=== PATIENT | male | born 1960 | race Caucasian/White ===

== ENCOUNTER → 2024-12-02 | Outpatient (CLI) | payer MEDICARE, SELFPAY ==
[2024-12-02 12:23] LABS: Hematocrit 43.3 % (40-54); Hemoglobin 14.4 g/dL (13.0-16.5); Immature Granulocytes Count 0.030 X10^3/uL (0.0-0.0); Mean Corp Hgb Conc 33.3 g/dL (32-36); Mean Corpuscular Volume 88.9 fL (80-94); Mean Platelet Vol. 10.0 fl (6.2-12.0); NRBC Flagged by Analyzer 0 % (0-5); Platelet Count 268 K/mm3 (150-450); RBC Distribution Width CV 15.3 % (11.6-14.6); RBC Distribution Width SD 50.4 fl (35.1-43.9); Red Blood Count 4.87 M/mm3 (4.6-6.2); White Blood Count 8.5 K/mm3 (4.4-11.0)
[2024-12-02 12:57] LABS: AST(SGOT) 20 U/L (<=37); Alanine Aminotransfer ALT/SGPT 21 U/L (<=46); Albumin, Serum 4.1 g/dL (3.4-4.8); Alkaline Phosphatase 61 U/L (40-129); Anion Gap 10 (5-15); BUN 12 mg/dL (4-19); BUN/Creat Ratio 14.1 RATIO (10-20); Calcium,Total 9.9 mg/dL (7.6-11.0); Carbon Dioxide 25.3 mmol/L (21.0-32.0); Chloride 105 mmol/L (98-108); Cholesterol 140 mg/dL (<=200); Globulin 3.2 g/dL (2.2-4.2); Glucose 104 mg/dL (70-99); Low Density Lipoprotein Calc. 71 mg/dL; Potassium 4.8 mmol/L (3.3-5.1); Triglycerides 107 mg/dL; Very Low Density Lipoprotein 21 mg/dL (5-40); Vitamin D,25 Hydroxy 30.5 ng/mL (30-100); cholesterol:hdl ratio screen 2.92
--- OUTSIDE RECORDS SUMMARY | 2024-12-02 18:07 | XMS RPT_ITS | CCD ---
Author Organization [facility] Care Team Providers Care Recruiting Intern Name Role Phone OPAL MEDINA Attending Unavailable ADAM, OPAL M Primary Care Unavailable CURT SOUSA Admitting Unavailable CURT SOUSA Attending Unavailable Curt Sousa Attending Unavailable Curt Sousa Referring Unavailable UNKNOWN, PCP [place] Primary Care Unavailable Curt Sousa Admitting Unavailable Adam, Opal Unavailable Unavailable Shirley Brunson Unavailable Unavailable Adam, Opal M Unavailable Unavailable Unknown, Referring Provider Unavailable Unav ailable Martinez Oh Unavailable Unavailabl e Curt Sousa Unavailable Unavailable Sidor, Monica A Unavailable Unavailable Adam, Opal Unavailable Unavailable Adam, Opal M Unavailable Unavailable Unavailable DR OPAL MEDINA MD Primary Care Physician Snehal vailable Unavailable Unavailable DR OPAL MEDINA MD Primary Care Physician Snehal vailable Geo, Dr. Gricelda Vivar Attending Unav ailable Geo, Dr. Gricelda Vivar Referring Unav ailable Adam, Dr. Opal Yanez Primary Care Unava ilable Adam, Dr. Opal Yanez Attending Unava ilable Leon, Dr. Opal Yanez Primary Care Unava ilable Leon, Dr. Opal Yanez Referring Unava ilable Leon, Dr. Opal Yanez Primary Care Unava ilable Leon, Dr. Opal Yanez Attending Unava ilable Leon, Dr. Opal Yanez Referring Unava ilable Leon, Dr. Opal Yanez Primary Care Unava ilable Leon, Dr. Opal Yanez Attending Unava ilable Adam, Dr. Opal Yanez Referring Unava ilable Leon, Dr. Opal Yanez Attending Unava ilable Adam, Dr. Opal Yanez Referring Unava ilable Adam, Dr. Opal Yanez Primary Care Unava ilable Adam, Dr. Opal Yanez Attending Unava ilable Adam, Dr. Opal Yanez Referring Unava ilable Adam, Dr. Opal Yanez Primary Care Unava ilable Leon, Dr. Opal Yanez Attending Unava ilable Leon, Dr. Opal Yanez Referring Unava ilable Leon, Dr. Opal Yanez Primary Care Unava ilable Guardado, Dr. Gricelda Vivar Attending Unav ailable Leon, Dr. Opal Yanez Primary Care Unava ilable Adam, Dr. Opal Yanez Attending Unava ilable Leon, Dr. Opal Yanez Referring Unava ilable Leon, Dr. Opal Yanez Primary Care Unava ilable Adam, Dr. Opal Yanez Primary Care Unava ilable MD MARTINEZ [place] Attending Unavail able MD MARTINEZ [place] Referring Unavail able Geo, Dr. Gricelda Vivar Referring Unav ailable Sparrow, Anabelle Yuli Smithn Attending Unavailab le Leon, Dr. Opal Yanez Primary Care Unava ilable Adam, Dr. Opal Yanez Primary Care Unava ilable Guardado, Dr. Gricelda Vivar Attending Unav ailable Guardado, Dr. Gricelda Vivar Referring Unav ailable Leon Opal COURTNEY Primary Care Provider ADAM COURTNEY, DR OPAL Wilson Primary Care ELISEO Ramesh DO Attending Unavailable ELISEO BRAXTON DO Admitting Emeka MEDINA MD, DR OPAL Wilson Primary Care Lacy OLIVER MD, DR GRICELDA Piña Attending Unavailab aurelio MEDINA MD, DR OPAL Wilson Primary Care Lacy OLIVER MD, DR GRICELDA Piña Attending Faisalab aurelio MEDINA MD, DR OPAL Wilson Primary Care UnavailELISEO Mejia DO Attending Emeka MEDINA MD, DR OPAL Wilson Primary Care Lacy OLIVER MD, DR GRICELDA Piña Attending Unavailab aurelio MEDINA MD, DR OPAL Wilson Primary Care Unavailgia OLIVER MD, DR GRICELDA Piña Attending Unavailab aurelio AGEEPACKAGING TECHNICIAN, RAINE Wilson Consulting Rafal MEDINA MD, DR OPAL Wilson Primary Care Unavailgia OLIVER MD, DR GRICELDA Piña Admitting Unavailab Simone COURTNEY, DR GRICELDA Piña Referring Unavailab aurelio OLIVER MD, DR GRICELDA Piña Attending Unavailab aurelio VU, BECK L Consulting Katerine MEDINA MD, DR OPAL Wilson Primary Care Unavailgia OLIVER MD, DR GRICELDA Piña Admitting Unavailab Simone COURTNEY, DR GRICELDA Piña Referring Unavailab aurelio OLIVER MD, DR GRICELDA Piña Attending Unavailab aurelio COLEMAN MD, DR SADIA Thomas Attending Unavailable ADAM COURTNEY, DR OPAL Wilson Primary Care Unavailgia MEDINA MD, DR OPAL Wilson Primary Care Unavailgia OLIVER MD, DR GRICELDA Piña Attending Unavailab Agustin COURTNEY, DR OPAL Wilson Primary Care Unavailgia OLIVER MD, DR GRICELDA Piña Attending Unavailab aurelio MEDINA MD, DR OPAL Wilson Primary Care Unavailgia LAU PA-C, RAY W Attending Unavailable ADAM COURTNEY, DR OPAL Wilson Primary Care Unavailgia OLIVER MD, DR GRICELDA Piña Attending Unavailab aurelio MEDINA MD, DR OPAL Wilson Primary Care Unavailgia OLIVER MD, DR GRICELDA Piña Attending Unavailab Opal Turk MD Unavailable ADAM, OPAL M Primary Care Unavailable ADAM, OPAL M Referring Unavailable ADAM, OPAL M Primary Care Unavailable ADAM, OPAL M Primary Care Unavailable ADAM, OPAL M Referring Unavailable ADAM, OPAL M Primary Care Unavailable ADAM, OPAL M Referring Unavailable ADAM, OPAL M Primary Care Unavailable ADAM, OPAL M Primary Care Unavailable ADAM, OPAL M Attending Unavailable ADAM, OPAL M Primary Care Unavailable Mary COURTNEY, Dr. Santiago Attending Provider Pamela Hernandez Attending Unavailable Pamela Hernandez Referring Unavailable Pamela Hernandez Attending Unavailable Medications Current Medications Medication Drug Class(es) Dates Sig (Normalized) Sig (Original) acetaminophen 1000 mg oral tablet (13 sources) Start: 01-16-2023 Tylenol Dose : 1,000 mg = 2 tab(s), Oral, q6h, 0 Refill(s) Start Date: 01/16/23 Status: Ordered Start: 07-11-2022 End: 07-25-2022 acetaminophen (Tylenol) 500 mg tablet 1 tablet (500 mg). 07/11/2022 Active acetaminophen 325 mg / HYDROcodone bitartrate 5 mg oral tablet (1 source) Opioid Agonist Start: 02-25-2023 End: 07-05-2023 take 1 tablet by mouth every six hours HYDROcodone-acetaminophen (Shields) 5-325 mg tablet Take 1 tablet by mouth every 6 hours. 0 02/25/2023 07/05/2023 Discontinued (Med List Cleanup) [id number] 200 actuat albuterol 0.09 mg/actuat metered dose inhaler (20 sources) beta2-Adren ergic Agonist Start: 02-28-2024 take 2 puff(s) by inhalation every four hours for wheezing albuterol 90 mcg/actuation inhaler Indications: Chronic obstructive pulmonary disease, unspecified COPD type (Multi) Inhale 2 puffs every 4 hours if needed for wheezing. 18 g 3 02/28/2024 Active Start: 11-01-2023 take 2 puff(s) by in halation every four hours for wheezing albuterol 90 mcg/actuation inhaler Indications: Chronic obstructive pulmonary disease, unspecified COPD type (Multi) Inhale 2 puffs every 4 hours if needed for wheezing. 18 g 3 11/01/2023 Active Start: 12-24-2022 End: 02-28-2024 take 2 puff(s) by inhalation every four hours for wheezing albuterol 90 mcg/actuation inhaler Indications: Chronic obstructive pulmonary disease, unspecified COPD type (Multi) Inhale 2 puffs every 4 hours if needed for wheezing. 18 g 3 11/01/2023 02/28/2024 Discontinued (Reorder) Start: 05-31-2022 Albuterol Sulf ate 90 mcg/actuation Hfa Aerosol Inhaler Active 1 NMA INHALATION EVERY 6 HOURS as needed for COPD May 31, 2022 1:00am Start: 10-14-2020 End: 12-24-2022 take 2 puff(s) by inhalation every four hours for wheezing albuterol 90 mcg/actuation inhaler Inhale 2 puffs every 4 hours if needed for wheezing. 0 10/14/2020 12/24/2022 Discontinued (Reorder) Start: 10-14-2020 take 2 puff(s) by in halation every four hours as needed Albuterol Sulfate HFA 108 (90 Base) MCG/ACT Inhalation Aerosol Solution INHALE 2 PUFFS EVERY 4 HOURS NEEDED Quantity: 1 Refills: 5 Ordered: 17-Feb-2021 Opal Medina MD Start : 14-Oct-2020 Active Start: 09-12-2017 End: 03-30-2022 take 2 puff(s) by inhalation three times daily as needed Ventolin HFA 108 (90 Base) MCG/ACT Inhalation Aerosol Solution INHALE 2 PUFFS 3 times daily PRN Quantity: 1 Refills: 5 Ordered: 23-May-2020 Opal Medina MD Start : 12-Sep-2017 End : 30-Mar-2022 Complete Start: 09-12-2017 take 2 puff(s) by in halation three times daily as needed Ventolin HFA 108 (90 Base) MCG/ACT Inhalation Aerosol Solution INHALE 2 PUFFS 3 times daily PRN Quantity: 1 Refills: 5 Opal Medina MD Start : 12-Sep-2017 Active 18 GM Inhaler Albuterol (Eqv-ProAir HFA) 90 mcg/inh inhalation aerosol (8 sources) Start: 06-24-2021 take 1 dose by inhalation every four hours as needed for wheezing Albuterol (Eqv-ProAir HFA) 90 mcg/inh inhalation aerosol Dose = 2 puff(s), Inhalation, q4h, PRN Shortness of breath or wheezing, per patient takes daily every 4 to 6 days, 0 Refill(s) Start Date: 06/24/21 Status: Ordered Start: 06-24-2021 take 1 dose by inhal ation every six hours as needed for wheezing Albuterol (Eqv-ProAir HFA) 90 mcg/inh inhalation aerosol Dose = 1 puff(s), Inhalation, q6hr, PRN Shortness of breath or wheezing, per patient takes daily every 4 to 6 days, 0 Refill(s) Start Date: 06/24/21 Status: Ordered apixaban 5 mg oral tablet (19 sources) Factor Xa Inhibitor Start: 11-30-2024 take 1 tablet by mouth twice daily Apixaban 5 mg tablet Active 5 mg PO TWICE A DAY November 30, 2024 12:00am Start: 02-28-2024 take 1 tablet by zoraida th twice daily apixaban (Eliquis) 5 mg tablet Indications: Acute deep vein thrombosis (DVT) of other specified vein of left lower extremity Take 1 tablet (5 mg) by mouth 2 times a day. 180 tablet 3 02/28/2024 Active Start: 11-01-2023 take 1 tablet by zoraida th twice daily apixaban (Eliquis) 5 mg tablet Indications: Acute deep vein thrombosis (DVT) of other specified vein of left lower extremity (Multi) Take 1 tablet (5 mg) by mouth 2 times a day. 180 tablet 3 11/01/2023 Active Start: 11-26-2022 End: 02-28-2024 take 1 tablet by mouth twice daily apixaban (Eliquis) 5 mg tablet Indications: Acute deep vein thrombosis (DVT) of other specified vein of left lower extremity Take 1 tablet (5 mg) by mouth 2 times a day. 180 tablet 3 11/01/2023 02/28/2024 Discontinued (Reorder) Start: 07-31-2022 take 1 tablet by zoraida th in the morning apixaban (Eliquis) 5 mg tablet Indications: Acute deep vein thrombosis (DVT) of other specified vein of left lower extremity (CMS/HCC) Take 1 tablet (5 mg) by mouth in the morning and 1 tablet (5 mg) before bedtime. 60 tablet 5 07/31/2022 Active aspirin 81 mg delayed release oral tablet (20 sources) Platelet Aggregation Inhibitor, Nonsteroidal Anti-inflammatory Drug Start: 07-11-2022 End: 10-30-2022 aspirin 81 mg EC tablet 1 tablet (81 mg). 0 07/11/2022 10/30/2022 Discontinued (Therapy completed) Start: 05-31-2022 End: 07-31-2022 take 1 tablet by mouth once daily Aspirin 325 mg Tablet Active 325 mg PO DAILY May 31, 2022 1:00am SUPPLMENT Start: 06-24-2021 aspirin 325 mg oral delayed release tablet Dose : 325 mg = 1 tab(s), Oral, qDay, # 90 tab(s), 0 Refill(s) Start Date: 06/24/21 Status: Ordered Start: 06-24-2021 aspirin 325 mg oral delayed release tablet Dose : 325 mg = 1 tab(s), Oral, qDay, # 90 tab(s), 0 Refill(s) Start Date: 06/24/21 Status: Ordered Aspirin 325 MG O ral Tablet Quantity: 0 Refills: 0 Ordered: 23-May-2020 DO Active atorvastatin 20 mg oral tablet (10 sources) HMG-CoA Reductase Inhibitor Start: 02-28-2024 take 1 tablet by mouth once daily atorvastatin (Lipitor) 20 mg tablet Indications: Hypercholesterolemia Take 1 tablet (20 mg) by mouth once daily. 90 tablet 3 02/28/2024 Active Start: 11-01-2023 take 1 tablet by zoraida th once daily atorvastatin (Lipitor) 20 mg tablet Indications: Hypercholesterolemia Take 1 tablet (20 mg) by mouth once daily. 30 tablet 11 11/01/2023 Active Start: 07-05-2023 End: 02-28-2024 take 1 tablet by mouth once daily atorvastatin (Lipitor) 20 mg tablet Indications: Hypercholesterolemia Take 1 tablet (20 mg) by mouth once daily. 30 tablet 11 11/01/2023 02/28/2024 Discontinued (Reorder) cephalexin 500 mg oral tablet (16 sources) Cephalosporin Antibacterial Start: 01-26-2023 End: 02-02-2023 cephalexin 500 mg oral tablet Dose : 500 mg = 1 tab(s), Oral, BID, X 7 day(s), # 14 tab(s), 0 Refill(s), 02/02/23 8:04:00 PM EDT, 119 Start Date: 01/26/23 Stop Date: 02/02/23 Status: Ordered Start: 07-14-2021 End: 05-25-2022 take 1 capsule by mouth once daily Cephalexin 500 MG Oral Capsule TAKE 1 CAPSULE EVERY 12 HOURS DAILY. Quantity: 20 Refills: 0 Ordered: 14-Jul-2021 Opal Medina MD Start : 14-Jul-2021 End : 25-May-2022 Complete Start: 06-27-2021 End: 07-07-2021 cephalexin 500 mg oral capsu le Dose : 500 mg = 1 cap(s), Oral, QID, # 40 cap(s), 0 Refill(s), [facility]acy: [id number], 177, cm, 06/24/21 19:36:00 EST, Height, 130, kg, 06/24/21 19:36:00 EST, Dosing Weight Start Date: 06/27/21 Stop Date: 07/07/21 Status: Ordered cholecalciferol 1000 unt extended release oral capsule (20 sources) Vitamin D Start: 05-31-2022 take 1 capsule by mouth once daily Cholecalciferol (Vitamin D3) (Vitamin D3) 100 mcg (4,000 unit) Capsule Active 1000 U PO DAILY May 31, 2022 1:00am SUPPLEMENT Start: 05-17-2017 take [address] [facility] once daily cholecalciferol (Vitamin D-3) 50 mcg (2,000 unit) capsule Take 1 capsule (50 mcg) by mouth once daily. 05/17/2017 Active cyclobenzaprine hydrochloride 5 mg oral tablet (16 sources) Muscle Relaxant Start: 07-05-2023 End: 10-26-2024 cyclobenzaprine (Flexeril) 5 mg tablet Indications: RLS (restless legs syndrome) Take 1 tablet (5 mg) by mouth as needed at bedtime for muscle spasms (for Restless leg). 90 tablet 3 11/01/2023 10/26/2024 Active Start: 06-09-2018 [facility] Cyclobenzaprine HCl - 10 MG Oral Tablet TAKE 1 TABLET AT BEDTIME. Quantity: 90 Refills: 1 Opal Medina MD Start : 09-Jun-2018 Active diphenhydrAMINE hydrochloride 25 mg oral tablet (2 sources) Histamine-1 Receptor Antagonist Start: 01-16-2023 Benadryl 25 mg oral tablet Dose : 25 mg = 1 tab(s), Oral, q6h, PRN Itching, 0 Refill(s) Start Date: 01/16/23 Status: Ordered docusate sodium 50 mg / sennosides, nursing home 8.6 mg oral tablet (2 sources) Start: 01-16-2023 End: 01-21-2023 take 1 tablet by mouth twice daily Senokot S 50 mg-8.6 mg oral tablet Dose = 2 tab(s), Oral, BID, X 5 day(s), # 20 tab(s), 0 Refill(s), [facility]: [facility] #[id number], 172.7, cm, 01/15/23 10:08:00 EDT, Height, kg, 01/15/23 10:08:00 EDT, Dosing Weight Start Date: 01/16/23 Stop Date: 01/21/23 Status: Ordered Start: 07-11-2022 End: 07-14-2022 take 1 tablet by mouth twice daily Senokot S 50 mg-8.6 mg oral tablet Dose = 2 tab(s), Oral, BID, Take until first bowel movement, then as needed, X 3 day(s), # 12 tab(s), 0 Refill(s), [facility]: [facility] #[id number], 172.7, cm, 07/10/22 9:49:00 EST, Height Start Date: 07/11/22 Stop Date: 07/14/22 Status: Ordered doxycycline hyclate 100 mg oral capsule (3 sources) Tetracycline-class Drug Start: 01-16-2023 End: 01-30-2023 doxycycline hyclate 100 mg oral capsule Dose : 100 mg = 1 cap(s), Oral, q12h, X 14 day(s), # 28 cap(s), 0 Refill(s), 01/30/23 8:07:00 AM EDT, [facility]: [facility] #[id number], 172.7, cm, 01/15/23 10:08:00 EDT, Height, 119, kg, 01/15/23 10:08:00 EDT, Dosing Weight Start Date: 01/16/23 Stop Date: 01/30/23 Status: Ordered Start: 07-11-2022 End: 07-25-2022 doxycycline hyclate 100 mg o ral capsule Dose : 100 mg = 1 cap(s), Oral, q12h, X 14 day(s), # 28 cap(s), 0 Refill(s), 07/25/22 6:34:00 EDT, [facility]acy: [facility] #[id number], 172.7, cm, 07/10/22 9:49:00 EST, Height, 126.7 Start Date: 07/11/22 Stop Date: 07/25/22 Status: Ordered famotidine 20 mg oral tablet (4 sources) Histamine-2 Receptor Antagonist Start: 01-16-2023 Pepcid 20 mg oral tablet Dose : 20 mg = 1 tab(s), Oral, qDay, # 30 tab(s), 0 Refill(s), [facility]: [facility] #[id number], 172.7, cm, 01/15/23 10:08:00 EDT, Height, kg, 01/15/23 10:08:00 EDT, Dosing Weight Start Date: 01/16/23 Status: Ordered Start: 07-11-2022 End: 10-30-2022 Pepcid 20 mg tablet 1 tablet (20 mg). 0 07/11/2022 10/30/2022 Discontinued (Therapy completed) glucose 4000 mg chewable tablet (9 sources) End: 02-28-2024 glucose 4 gram chewable tablet Chew if needed for low blood sugar - see comments. 02/28/2024 Discontinued (Other) hydroCHLOROthiazide 50 mg oral tablet (20 sources) Thiazide Diuretic Start: 02-28-2024 take 1 tablet by mouth once daily hydroCHLOROthiazide (HYDRODiuril) 50 mg tablet Indications: Primary hypertension Take 1 tablet (50 mg) by mouth once daily. 90 tablet 3 02/28/2024 Active Start: 11-01-2023 take 1 tablet by zoraida th once daily hydroCHLOROthiazide (HYDRODiuril) 50 mg tablet Indications: Primary hypertension Take 1 tablet (50 mg) by mouth once daily. 90 tablet 3 11/01/2023 Active Start: 11-29-2018 hydroCHLOROthi azide 25 MG Oral Tablet Quantity: 30 Refills: 0 Start : 29-Nov-2018 Active Start: 03-26-2017 End: 02-28-2024 take 1 tablet by mouth once daily Hydrochlorothiazide 50 mg Tablet Active 50 mg PO DAILY May 31, 2022 1:00am BP hydrocortisone 10 mg/ml / neomycin 3.5 mg/ml / polymyxin b [id number] unt/ml otic solution (8 sources) Aminoglycoside Antibacterial, Polymyxin-class Antibacterial, Corticosteroid Start: 07-05-2023 [id number] (Cortisporin) otic solution Indications: Acute swimmer's ear of left side Administer 2 drops into the left ear 4 times a day. 10 mL 07/05/2023 Active meloxicam 7.5 mg oral tablet (5 sources) Nonsteroidal Anti-inflammatory Drug Start: 02-25-2023 End: 07-05-2023 take 1 tablet by mouth once daily meloxicam (Mobic) 7.5 mg tablet Take 1 tablet (7.5 mg) by mouth once daily. 0 02/25/2023 07/05/2023 Discontinued (Med List Cleanup) Start: 04-27-2022 End: 10-30-2022 Mobic 7.5 mg tablet 1 tablet (7.5 mg). 0 07/11/2022 10/30/2022 Discontinued (Therapy completed) Multivit With Min-Folic Acid (Men's Daily Gummies) 200 mcg Tablet,Chewable (1 source) Start: 05-31-2022 take 1 tablet by mouth once daily Multivit With Min-Folic Acid (Men's Daily Gummies) 200 mcg Tablet,Chewable Active 2 {tbl} PO DAILY May 31, 2022 1:00am SUPPLEMENT multivitamin (Daily Multi-Vitamin) tablet (1 source) Start: 03-26-2017 End: 07-31-2022 take 1 tablet by mouth once daily multivitamin (Daily Multi-Vitamin) tablet Take 1 tablet by mouth once daily. 0 03/26/2017 07/31/2022 Discontinued (Duplicate order) multivitamin capsule (11 sources) Start: 07-02-2022 multivitamin c apsule once daily. 07/02/2022 Active Start: 07-02-2022 multivitamin c apsule once daily. 0 07/02/2022 Active Multivitamin preparation (6 sources) Start: 07-02-2022 take 1 tablet by mouth once daily Multivitamin Dose = 1 tab(s), Oral, Daily, 0 Refill(s) Start Date: 07/02/22 Status: Ordered ondansetron 4 mg oral tablet (1 source) Serotonin-3 Receptor Antagonist Start: 01-16-2023 End: 01-23-2023 ondansetron 4 mg oral tablet Dose : 4 mg = 1 tab(s), Oral, q8h, PRN Nausea/Vomiting, # 15 tab(s), 0 Refill(s), 01/23/23 8:08:00 AM EDT, Pharmacy: [email or web address] #[id number], 172.7, cm, 01/15/23 10:08:00 EDT, Height, kg, 01/15/23 10:08:00 EDT, Dosing Weight Start Date: 01/16/23 Stop Date: 01/23/23 Status: Ordered oxyCODONE hydrochloride 5 mg oral tablet (4 sources) Opioid Agonist Start: 01-16-2023 End: 01-23-2023 take 1-2 tablets by mouth every four hours as needed for pain oxyCODONE 5 mg oral tablet ( IMMEDIATE release ) 1-2 tab(s), Oral, q4h, PRN as needed for pain, X 7 day(s), # 60 tab(s), 0 Refill(s), 01/23/23 8:08:00 AM EDT, Pharmacy: [facility] ([facility] #[id number], Knee arthropathy Other acute postprocedural pain, 172.7, cm, 01/15/23 10:08:00 EDT, Height, 119, kg, 01/15/23 10:08:00 EDT, Dosing Weight Start Date: 01/16/23 Stop Date: 01/23/23 Status: Ordered Start: 07-23-2022 End: 10-30-2022 oxyCODONE (Roxicodone) 5 mg immediate release tablet 1 tablet (5 mg). 0 07/23/2022 10/30/2022 Discontinued (Therapy completed) Start: 07-11-2022 End: 07-18-2022 take 1-2 tablets by mouth every four hours as needed for pain oxyCODONE 5 mg oral tablet ( IMMEDIATE release ) See Instructions, PRN as needed for pain, 1-2 tab(s) Oral q4h, # 60 tab(s), 0 Refill(s), 07/18/22 6:35:00 EST, Pharmacy: [facility] ([facility] #[id number], Status post total left knee replacement, 172.7, cm, 07/10/22 9:49:00 EST, Height, 126.7 Start Date: 07/11/22 Stop Date: 07/18/22 Status: Ordered rivaroxaban 20 mg oral tablet (2 sources) Factor Xa Inhibitor Start: 07-26-2022 End: 10-30-2022 take 1 tablet by mouth once daily Xarelto 20 mg tablet Take 1 tablet (20 mg) by mouth once daily. 0 07/26/2022 10/30/2022 Discontinued (Therapy completed) sertraline 100 mg oral tablet (18 sources) Serotonin Reuptake Inhibitor Start: 11-30-2024 take 1 tablet by mouth once daily Sertraline (Zoloft) 100 mg tablet Active 100 mg PO daily November 30, 2024 12:00am Start: 02-28-2024 sertraline (Zo loft) 100 mg tablet Indications: Depression screen Take 1 daily 90 tablet 3 02/28/2024 Active Start: 11-01-2023 sertraline (Zo loft) 100 mg tablet Indications: Depression screen Take 1 daily 90 tablet 3 11/01/2023 Active Start: 11-26-2022 End: 02-28-2024 sertraline (Zoloft) 100 mg t ablet Indications: Depression screen Take 1 daily 90 tablet 3 11/01/2023 02/28/2024 Discontinued (Reorder) Start: 10-30-2022 sertraline (Zo loft) 50 mg tablet Indications: Depression screen Take 1/2 tablet daily for the first week and then increase to 1 full tablet daily 30 tablet 1 10/30/2022 Active sulfamethoxazole 800 mg / trimethoprim 160 mg oral tablet (18 sources) Dihydrofolate Reductase Inhibitor Antibacterial, Sulfonamide Antimicrobial Start: 01-26-2023 End: 02-05-2023 take 1 tablet by mouth twice daily Bactrim DS 800 mg-160 mg oral tablet Dose = 1 tab(s), PO, BID, X 10 day(s), # 20 tab(s), 0 Refill(s), 119 Start Date: 01/26/23 Stop Date: 02/05/23 Status: Ordered Start: 07-14-2021 End: 05-25-2022 take 1 tablet by mouth twice daily Sulfamethoxazole-Trimethoprim 800-160 MG Oral Tablet TAKE 1 TABLET TWICE DAILY UNTIL FINISHED. Quantity: 20 Refills: 0 Ordered: 14-Jul-2021 Opal Medina MD Start : 14-Jul-2021 End : 25-May-2022 Complete Start: 06-27-2021 End: 07-07-2021 take 1 tablet by mouth every twelve hours Bactrim DS 800 mg-160 mg oral tablet Dos e = 1 tab(s), Oral, q12h, X 10 day(s), # 20 tab(s), 0 Refill(s), Pharmacy: [id number], 177, cm, 06/24/21 19:36:00 EST, Height, 130, kg, 06/24/21 19:36:00 EST, Dosing Weight Start Date: 06/27/21 Stop Date: 07/07/21 Status: Ordered Start: 05-08-2019 End: 06-06-2019 take 1 tablet by mouth twice daily Sulfamethoxazole-Trimethoprim 800-160 MG Oral Tablet TAKE 1 TABLET TWICE DAILY. Quantity: 28 Refills: 0 Opal Medina MD Start : 08-May-2019 End : 05-Jun-2019 Active tiZANidine 4 mg oral tablet (1 source) Central alpha-2 Adrenergic Agonist Start: 02-17-2024 take 1 tablet by mouth every eight hours as needed tiZANidine (Zanaflex) 4 mg tablet Take 1 tablet (4 mg) by mouth every 8 hours if needed for muscle spasms. 02/17/2024 Active Vitamin D3 (3 sources) Start: 06-25-2021 Vitamin D3 Dos e : 1,000 unit(s) = 1 tab(s), Oral, Daily, 0 Refill(s) Start Date: 06/25/21 Status: Ordered Vitamin D3 25 mcg (1000 intl units) oral tablet (5 sources) Start: 07-10-2022 Vitamin D3 25 mcg (1000 intl units) oral tablet Dose : 50 mcg = 2 tab(s), Oral, Daily Start Date: 07/10/22 Status: Ordered Completed/Discontinued Medications Medication Drug Class(es) Dates Sig (Normalized) Sig (Original) amoxicillin 500 mg / clavulanate 125 mg oral tablet (2 sources) Penicillin-class Antibacterial Start: 07-17-2021 take 1 tablet by mouth every eight hours Amoxicillin-Pot Clavulanate 500-125 MG Oral Tablet take 1 tablet by mouth every 8 hours for 7 days Quantity: 21 Refills: 0 Ordered: 17-Jul-2021 DO Start : 17-Jul-2021 Active Multi Vitamin Daily Oral Tablet (7 sources) Start: 03-26-2017 take 1 tablet by mouth once daily Multi Vitamin Daily Oral Tablet TAKE 1 TABLET DAILY. Quantity: 30 Refills: 11 Opal Medina MD Start : 26-Mar-2017 Active Multi Vitamin Daily Oral Tablet (19 sources) Start: 03-26-2017 take 1 tablet by mouth once daily Multi Vitamin Daily Oral Tablet TAKE 1 TABLET DAILY. Quantity: 30 Refills: 11 Ordered: 26-Mar-2017 Opal Medina MD Start : 26-Mar-2017 Active Multi Vitamin Daily TABS (1 source) Start: 03-26-2017 Multi Vitamin Daily TABS TAKE 1 TABLET DAILY. Quantity: 30 Refills: 11 Ordered: 26-Mar-2017 Opal Medina MD Start : 26-Mar-2017 Active perflutren lipid microspheres (Definity) injection 10 mL of dilution (2 sources) Start: 08-14-2023 End: 08-14-2023 perflutren lipid microspheres (Definity) injection 10 mL of dilution potassium 99 mg extended release oral tablet (1 source) Start: 05-31-2022 End: 11-30-2024 take 1 tablet by mouth once daily Potassium 99 mg Tablet Discontinued 99 mg PO DAILY May 31, 2022 1:00am November 30, 2024 11:09am SUPPLEMENT predniSONE 10 mg oral tablet (5 sources) Start: 03-30-2022 End: 05-25-2022 take 4 tablets by mouth once daily, then take 3 tablets by mouth once daily, then take 2 tablets by mouth once daily, then take 1 tablet by mouth once daily predniSONE 10 MG Oral Tablet Take 4 pills daily for 3 days, then take 3 pills daily for 3 days, then take 2 pills daily for 3 days then take 1 pill daily for 3 days. Quantity: 30 Refills: 0 Ordered: 30-Mar-2022 Opal Medina MD Start : 30-Mar-2022 End : 25-May-2022 Complete traMADol hydrochloride 50 mg oral tablet (5 sources) Opioid Agonist Start: 12-07-2021 End: 03-30-2022 take 1 tablet by mouth twice daily traMADol HCl - 50 MG Oral Tablet Take 1 tablet twice daily Quantity: 14 Refills: 0 Ordered: 07-Dec-2021 Opal Medina MD Start : 07-Dec-2021 End : 30-Mar-2022 Complete Problems Active Problems Problem Classification Problem Date Documented Da te Episodic/Chronic Administrative/social admission (1 source) First encounter by subject; Translations: [Persons encountering health services in other specified circumstances] 11-30-2024 Episodic Asthma (20 sources) Unspecified asthma, uncomplicated; Translations: [Asthma] Onset: 9 06-29-2022 Chronic Chronic obstructive pulmonary disease and bronchiectasis (20 sources) Chronic obstructive pulmonary disease, unspecified; Translations: [Emphysema, unspecified] Onset: 9 Chronic Coma; stupor; and brain damage (7 sources) Daytime somnolence; Translations: [Excessive daytime sleepiness] Episodic Diseases of white blood cells (4 sources) Leukocytosis; Translations: [Leukocytosis] Chronic Disorders of lipid metabolism (9 sources) Hypercholesterolemia; Translations: [Pure hypercholesterolemia, unspecified] Onset: 4 07-05-2023 Chronic Esophageal disorders (2 sources) Gastroesophageal reflux disease; Translations: [Gastro-esophageal reflux disease without esophagitis] 11-30-2024 Chronic Essential hypertension (20 sources) Essential (primary) hypertension; Translations: [Hypertensive disorder] Onset: 9 Chronic Malaise and fatigue (1 source) Other fatigue; Translations: [OTHER FATIGUE] Onset: 9 Episodic Melanomas of skin (20 sources) Malignant melanoma; Translations: [Melanoma of skin, site unspecified] Onset: 3 06-29-2022 Chronic Comment on above: romoved from right c heek approx 2006; Melanomas of skin (1 source) Personal history of malignant melanoma of skin; Translations: [Personal history of malignant melanoma of skin] Onset: 5 Episodic Mood disorders (14 sources) Moderate major depression, single episode; Translations: [Major depressive disorder, single episode, moderate] Onset: 3 10-30-2022 Chronic Mycoses (7 sources) Tinea pedis; Translations: [Tinea pedis] Episodic Nutritional deficiencies (20 sources) Vitamin D deficiency; Translations: [Unspecified vitamin D deficiency] Onset: 3 06-29-2022 Chronic Osteoarthritis (20 sources) Primary osteoarthritis, right hand; Translations: [Osteoarthritis of joint of bilateral hands] Onset: 2 Resolved: 3 Chronic Other aftercare (1 source) oysterman (current) use of aspirin; Translations: [oysterman (current) use of aspirin] Onset: 9 Episodic Other and unspecified benign neoplasm (1 source) Benign neoplasm of transverse colon; Translations: [Benign neoplasm of transverse colon] Onset: 9 Episodic Other and unspecified benign neoplasm (1 source) Benign neoplasm of sigmoid colon; Translations: [Benign neoplasm of sigmoid colon] Onset: 9 Episodic Other and unspecified benign neoplasm (1 source) Polyp of colon; Translations: [Polyp of colon] Onset: 9 Episodic Other and unspecified benign neoplasm (1 source) Personal history of colonic polyps; Translations: [Personal history of colonic polyps] Onset: 9 Episodic Other circulatory disease (1 source) History of cerebrovascular disease; Translations: [Personal history of other diseases of the circulatory system] Onset: 2 Episodic Other connective tissue disease (1 source) Artificial knee joint present; Translations: [Presence of left artificial knee joint] Onset: 3 Chronic Other ear and sense organ disorders (1 source) Acute otitis externa; Translations: [Swimmer's ear, left ear] 07-05-2023 Episodic Other gastrointestinal disorders (1 source) Other fecal abnormalities; Translations: [Other fecal abnormalities] Onset: 9 Episodic Other gastrointestinal disorders (7 sources) Scrotal mass; Translations: [Scrotal mass] Episodic Other hereditary and degenerative nervous system conditions (3 sources) Restless legs; Translations: [Restless legs syndrome] 07-05-2023 Chronic Other hereditary and degenerative nervous system conditions (2 sources) Restless legs syndrome; Translations: [Restless legs syndrome] Onset: 4 Chronic Other lower respiratory disease (1 source) Snoring; Translations: [SNORING] Onset: 9 Episodic Other nervous system disorders (1 source) Postoperative pain ; Translations: [Other acute postprocedural pain] Onset: 3 Episodic Other non-epithelial cancer of skin (20 sources) Malignant neoplasm of skin of face; Translations: [Unspecified malignant neoplasm of skin of unspecified part of face] Onset: 3 09-09-2017 Episodic Other nutritional; endocrine; and metabolic disorders (1 source) Body mass index (BMI) 40.0-44.9, adult; Translations: [BODY MASS INDEX (BMI) 40.0-44.9, ADULT] Onset: 9 Chronic Other nutritional; endocrine; and metabolic disorders (20 sources) Obesity; Translations: [Obesity, unspecified] Onset: 2 Chronic Other nutritional; endocrine; and metabolic disorders (20 sources) Body mass index 40+ - severely obese; Translations: [Body Mass Index 45.0-49.9, adult] Chronic Other screening for suspected conditions (not mental disorders or infectious disease) (20 sources) Stool DNA-based colorectal cancer screening positive; Translations: [Abnormal feces] Onset: 5 Resolved: 1 Episodic Peripheral and visceral atherosclerosis (1 source) Chronic total occlusion of artery of the extremities; Translations: [Chronic total occlusion of artery of the extremities] Onset: 5 Chronic Phlebitis; thrombophlebitis and thromboembolism (20 sources) Acute deep venous thrombosis of left femoral vein; Translations: [Acute embolism and thrombosis of left femoral vein] Onset: 3 10-30-2022 Episodic Residual codes; unclassified (3 sources) Obstructive sleep apnea (adult) (pediatric); Translations: [OBSTRUCTIVE SLEEP APNEA (ADULT) (PEDIATRIC)] Onset: 9 Chronic Residual codes; unclassified (20 sources) Obstructive sleep apnea syndrome; Translations: [Obstructive sleep apnea (adult)(pediatric)] Onset: 2 Chronic Residual codes; unclassified (20 sources) Needs influenza immunization; Translations: [Need for prophylactic vaccination and inoculation against influenza] Onset: 3 Resolved: 4 03-01-2023 Episodic Residual codes; unclassified (2 sources) Tobacco user; Translations: [Tobacco use] Onset: 2 Episodic Residual codes; unclassified (1 source) Hypersomnia, unspecified; Translations: [HYPERSOMNIA, UNSPECIFIED] Onset: 9 Rheumatoid arthritis and related disease (2 sources) Rheumatoid arthritis; Translations: [Rheumatoid arthritis, unspecified] 11-30-2024 Chronic Spondylosis; intervertebral disc disorders; other back problems (1 source) Spondylosis without myelopathy or radiculopathy, lumbar region; Translations: [Spondylosis w/o myelopathy or radiculopathy, lumbar region] Onset: 2 Chronic Spondylosis; intervertebral disc disorders; other back problems (20 sources) Chronic low back pain; Translations: [Lumbago] Onset: 2 Resolved: 1 Episodic Substance-related disorders (20 sources) Nicotine dependence, unspecified, uncomplicated; Translations: [Nicotine dependence] Onset: 9 06-29-2022 Chronic Syncope (17 sources) Vasovagal syncope; Translations: [Syncope and collapse] Onset: 4 07-31-2023 Episodic Unclassified (2 sources) G47.33 RALPH Onset: 9 Unclassified (2 sources) Low back pain, unspecified; Translations: [Low back pain, unspecified] Onset: 2 Past or Other Problems Problem Classification Problem Date Documented Da te Episodic/Chronic Genitourinary symptoms and ill-defined conditions (20 sources) Microscopic hematuria; Translations: [Asymptomatic microscopic hematuria] Resolved: 05-23-2020 Episodic Immunizations and screening for infectious disease (2 sources) Encounter for immunization; Translations: [Encounter for immunization] Onset: 02-28-2024 Episodic Inflammatory conditions of male genital organs (20 sources) Abscess of testis; Translations: [Orchitis, epididymitis, and epididymo-orchitis, with abscess] Onset: 06-29-2022 Resolved: 07-31-2022 07-31-2022 Episodic Mood disorders (8 sources) Mood disorders Onset: 03-01-2023 03-01-2023 Other and unspecified benign neoplasm (20 sources) History of polyp of colon; Translations: [Personal history of colonic polyps] Onset: 06-29-2022 06-29-2022 Episodic Other connective tissue disease (2 sources) Pain in left lower leg; Translations: [Pain in left lower leg] Onset: 07-23-2022 Episodic Other hematologic conditions (20 sources) H/O: blood disorder; Translations: [Personal history of diseases of blood and blood-forming organs] Resolved: 05-23-2020 Episodic Other infections; including parasitic (20 sources) H/O: skin disorder; Translations: [Personal history of other infectious and parasitic diseases] Resolved: 05-23-2020 Episodic Other male genital disorders (20 sources) H/O: Disorder; Translations: [Personal history of other specified diseases] Resolved: 05-23-2020 Episodic Other non-traumatic joint disorders (20 sources) Pain in left knee; Translations: [Acute pain of left knee] Resolved: 05-23-2020 Episodic Other nutritional; endocrine; and metabolic disorders (20 sources) H/O: obesity; Translations: [Personal history of other endocrine, metabolic, and immunity disorders] Resolved: 05-23-2020 Episodic Other screening for suspected conditions (not mental disorders or infectious disease) (2 sources) Elevated C-reactive protein; Translations: [CRP elevated] Residual codes; unclassified (20 sources) Daytime somnolence; Translations: [Hypersomnia, unspecified] Onset: 06-29-2022 Resolved: 07-31-2022 07-31-2022 Chronic Residual codes; unclassified (20 sources) Dependent edema; Translations: [Edema] Resolved: 05-23-2020 Episodic Screening and history of mental health and substance abuse codes (6 sources) Patient encounter status; Translations: [Encounter for screening for depression] Onset: 02-28-2024 10-30-2022 Episodic Skin and subcutaneous tissue infections (20 sources) Cellulitis of lower limb; Translations: [Cellulitis of left lower limb] Onset: 06-24-2021 Resolved: 07-31-2022 Episodic Unclassified (1 source) Low back pain, unspecified; Translations: [Low back pain, unspecified] Onset: 03-30-2022 Unclassified (11 sources) Onset: 07-31-2022 Resolved: 10-30-2022 10-30-2022 NEGATED: Highlighted row has not occurred!Residual codes; unclassified (20 sources) Disease Episodic Results Test Name Value Interpretation Reference Range Facility Internal Medicine Office Vis nohemy 11-26-2024 Internal Medicine Office Visit [facility] [address] [place] [address] OFFICE VISIT Date of Service: 11/30/24 MR#: [id number] Acct: [id number] Name: ILDEFONSO ROCHA Rep #: [id number] : 1960 Provider: Dr. Pamela ruffin MD Age/Sex: 64/M Location[place] [facility] Status: Signed Intake Vital Signs 11/30/24 12:48 Weight: 290 lb BP 142/98 H Blood Pressure Location Lt brachial Position Sitting Respiration 18 Pulse 92 Pulse Source Monitor Temp 97.9 F Temp Source Temporal Pulse Oximetry (%) 96 Oxygen Delivery Method room air Intake Visit Reasons: EST NEW PT - [facility] SENT Chief Complaint: EST NEW PT-[facility] SENT Is patient in pain?: Yes (back pain 4) Allergies No Known Allergies Allergy (Verified 11/30/24 11:09) Medications ???Medication ???Instructions ???Recorded ???Confirmed ???Type albuterol sulfate 90 mcg/actuation 1 puff inhalation Q6H PRN COPD 0 05/31/22 11/30/24 History aerosol inhaler aspirin 325 mg tablet 325 mg PO DAILY SUPPLMENT 05/31/22 11/30/24 History cholecalciferol (vitamin D3) 100 1,000 unit PO DAILY SUPPLEMENT 11/30/24 History mcg (4,000 unit) capsule hydrochlorothiazide 50 mg tablet 50 mg PO DAILY BP 05/31/22 5 History multivitamin with minerals-folic 2 tab PO DAILY SUPPLEMENT 05/31/22 11/30/24 History acid 200 mcg chewable tablet (Men's Daily Gummies) apixaban 5 mg tablet 5 mg PO BID 11/30/24 11/30/24 Hist ory cyclobenzaprine 5 mg tablet 5 mg PO TID PRN muscle spasm #30 0 11/30/24 11/30/24 Rx tabs duloxetine 30 mg capsule,delayed 30 mg PO QDAY #30 caps 11/30/24 Rx release (Cymbalta) sertraline 100 mg tablet (Zoloft) 100 mg PO QDAY 11/30/24 11/30/24 History Have you fallen in the past year?: Yes (x2) PFSH Medical History (Updated 11/30/24 @ 11:[address] Pamela Hernandez MD) Hearing problem DVT (deep venous thrombosis) Wears dentures Wears glasses Cancer History of steroid therapy Arthritis High cholesterol Easy bruising Restless legs Back pain Smoker Sleep apnea Shortness of breath on exertion COPD (chronic obstructive pulmonary disease) Leg cramps History of pain when walking History of edema Hypertension Surgical History History of bilateral knee replacement Hx of colonoscopy Hx of hernia repair Family History Mother Lung cancer Depression Asthma Anxiety Arthritis Hypertension Hyperlipidemia Social History (Updated 11/30/24 @ 11:[address] 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 1. Little interest or pleasure in doing things: not at all 2. Feeling down, depressed, or hopeless: several days 3. Trouble falling or staying asleep, or sleeping too much: more than half the days 4. Feeling tired or having little energy: more than half the days 5. Poor appetite or overeating: more than half the days 6. Feeling bad about yourself - or that you are a failure or have let yourself and your family down: more than half the days 7. Trouble concentrating on things, such as reading the newspaper or watching television: not at all 8. Moving or speaking so slowly that other people could have noticed? - Or the opposite - being so fidgety or restless that you have been moving around a lot more than usual: nearly every day 9. Thoughts that you would be better off or of hurting yourself in some way: not at all Total score: 12 If you checked off any problems, how difficult have these problems made it for you to do your work, take care of things at home, or get along with other people?: not difficult at all Source: Developed by Drs. Eric Aguayo, Britta Bingham, Art Watson and colleagues, with an educational gerber from [employer]. VIRAL-7 BMS VIRAL-7 Feeling nervous, anxious, or on edge: 2 = More than half the days Not being able to stop or control worryin = Nearly every day Worrying too much about different things: 2 = More than half the days Trouble relaxin = Not at all Being so restless that it is hard to sit still: 2 = More than half the days Becoming easily annoyed or irritable: 3 = Nearly every day Feeling afraid as if something awful might happ (more content not included)... Normal [facility] Hepatic function 2000 panelo n 10-29-2023 Albumin BCP dye [Mass/Vol] 4.4 g/dL Normal 3.4-5.0 [facility] Comment on above: Performed By: #### T HYDS #### CE Ascencio ([id number]) [facility] ([facility]) [address] [place] [address] ALP [Catalytic activity/Vol] 59 U/L Normal 33-136 [facility] Comment on above: Performed By: #### T HYDS #### CE Ascencio ([id number]) [facility] ([facility]) [address] [place] [address] ALT With P-5'-P [Catalytic activity/Vol] 21 U/L Normal 10-52 [facility] Comment on above: Result Comment: Perla ents treated with Sulfasalazine may generate falsely decreased results for ALT. Performed By: #### T HYDS #### CE Ascencio ([id number]) [facility] ([facility]) [address] [place] [address] AST With P-5'-P [Catalytic activity/Vol] 15 U/L Normal 9-39 [facility] Comment on above: Performed By: #### T HYDS #### CE Ascencio ([id number]) [facility] ([facility]) [address] [place] [address] Bilirubin [Mass/Vol] 0.5 mg/dL Normal 0.0-1.2 [facility] Comment on above: Performed By: #### T HYDS #### CE Ascencio ([id number]) [facility] ([facility]) [address] [place] [address] Bilirubin.direct [Mass/Vol] 0.1 mg/dL Normal 0.0-0.3 [facility] Comment on above: Performed By: #### T HYDS #### CE Ascencio ([id number]) [facility] ([facility]) [address] [place] [address] Protein [Mass/Vol] 7.3 g/dL Normal 6.4-8.2 [facility] Comment on above: Performed By: #### T HYDS #### CE Ascencio ([id number]) [facility] ([facility]) [address] [place] [address] Lipid 1996 panelon 4 Cholesterol [Mass/Vol] 157 mg/dL Normal 0-199 [facility] Comment on above: Result Comment: Age Desirable Borderline High High 0-19 Y 0 - 169 170 - 199 >/= 200 20-24 Y 0 - 189 190 - 224 >/= 225 >24 Y 0 - 199 200 - 239 >/= 240 All ranges are based on fasting samples. Specific therapeutic targets will vary based on patient-specific cardiac risk. Pediatric guidelines reference:Pediatrics 2011, 128(S5).Adult guidelines reference: NCEP ATPIII Guidelines,JOSEF 2001, 258:2486-97 Venipuncture immediately after or during the administration of Metamizole may lead to falsely low results. Testing should be performed immediately prior to Metamizole dosing. Performed By: #### T HYDS #### CE Ascencio ([id number]) [facility] ([facility]) [id number] [place] [address] Cholesterol in HDL [Mass/Vol] 46.7 mg/dL Normal [facility] Comment on above: Result Comment: Age Very Low Low Normal High 0-19 Y < 35 < 40 40-45 ---- 20-24 Y ---- < 40 >45 ---- >24 Y ---- < 40 40-60 >60 Performed By: #### T HYDS #### CE Ascencio ([id number]) [facility] ([facility]) [address] [place] [address] Cholesterol in LDL [Mass/Vol] 84 mg/dL Normal <=99 [facility] Comment on above: Result Comment: Near Borderline AGE Desirable Optimal High High Very High 0-19 Y 0 - 109 --- 110-129 >/= 130 ---- 20-24 Y 0 - 119 --- 120-159 >/= 160 ---- >24 Y 0 - 99 100-129 130-159 160-189 >/=190 Performed By: #### T HYDS #### CE Ascencio ([id number]) [facility] ([facility]) [address] [place] [address] Cholesterol in VLDL [Mass/Vol] 26 mg/dL Normal 0-40 [facility] Comment on above: Performed By: #### T HYDS #### CE Ascencio ([id number]) [facility] ([facility]) [id number] [place] [address] CHOLESTEROL/HDL RATIO 3.4 Normal [facility] Comment on above: Result Comment: Ref Values Desirable < 3.4 High Risk > 5.0 Performed By: #### T HYDS #### CE Ascencio ([id number]) [facility] ([facility]) [address] [place] [address] NON HDL CHOLESTEROL 110 mg/dL Normal 0-149 [facility] Comment on above: Result Comment: Age Desirable Borderline High High Very High 0-19 Y 0 - 119 120 - 144 >/= 145 >/= 160 20-24 Y 0 - 149 150 - 189 >/= 190 ---- >24 Y 30 mg/dL above LDL Cholesterol goal Performed By: #### T HYDS #### CE Ascencio ([id number]) [facility] ([facility]) [address] [place] [address] Triglyceride [Mass/Vol] 130 mg/dL Normal 0-149 [facility] Comment on above: Result Comment: Age Desirable Borderline High High Very High 0 D-90 D 19 - 174 ---- ---- ---- 91 D- 9 Y 0 - 74 75 - 99 >/= 100 ---- 10-19 Y 0 - 89 90 - 129 >/= 130 ---- 20-24 Y 0 - 114 115 - 149 >/= 150 ---- >24 Y 0 - 149 150 - 199 200- 499 >/= 500 Venipuncture immediately after or during the administration of Metamizole may lead to falsely low results. Testing should be performed immediately prior to Metamizole dosing. Performed By: #### T CIRA #### CE Ascencio ([id number]) [facility] ([facility]) [address] [place] [address] [place].doppler Carotid arteries - bilateralon 09-23-2023 [facility] [address], [address], [place], [place] [address] and Vascular Lab Report [facility] US CAROTID ARTERY DUPLEX BILATERAL Patient Name: ILDEFONSO ROCHA Reading Physician: [id number] Warren Caldwell MD Study Date: 09/23/2023 Ordering Physician: [id number] OPAL MEDINA MRN/PID: [id number] Technologist: Alessia Hart T Technologist 2: Date of /Age: 11 1960 / 63 years Gender: M Admission Status: Outpatient Location Performed: [facility] Diagnosis/ICD: Syncope and collapse-R55 Indication: Syncope CPT Codes: 61595 Cerebrovascular Carotid Duplex scan complete CONCLUSIONS: Right Carotid: Findings are consistent with less than 50% stenosis of the right proximal internal carotid artery. Right external carotid artery appears patent with no evidence of stenosis. The right vertebral artery is patent with antegrade flow. No evidence of hemodynamically significant stenosis in the right subclavian artery. Left Carotid: Findings are consistent with less than 50% stenosis of the left proximal internal carotid artery. Left external carotid artery appears patent with no evidence of stenosis. The left vertebral artery is patent with antegrade flow. No evidence of hemodynamically significant stenosis in the left subclavian artery. Imaging & Doppler Findings: Right Plaque Morph: The right carotid bulb demonstrates heterogenous plaque. Left Plaque Morph: The left carotid bulb demonstrates heterogenous plaque. Right Left PSV EDV PSV EDV 114 cm/s CCA P 115 cm/s 62 cm/s CCA D 66 cm/s 98 cm/s 37 cm/s ICA P 59 cm/s 18 cm/s 66 cm/s 20 cm/s ICA M 50 cm/s 18 cm/s 78 cm/s 30 cm/s ICA D 62 cm/s 25 cm/s 82 cm/s ECA 62 cm/s 24 cm/s 7 cm/s Vertebral 38 cm/s 12 cm/s 136 cm/s Subclavian 101 cm/s Right Left ICA/CCA Ratio 1.6 0.9 [id number] Warren Caldwell MD Final MAUROO Warren Caldwell MD - 09/23/2023 [facility] [address], [address], [place], [place] [address] and Vascular Lab Report [facility] US CAROTID ARTERY DUPLEX BILATERAL Patient Name: ILDEFONSO ROCHA Reading Physician: [id number] Caldwell MD Study Date: 09/23/2023 Ordering Physician: [id number] OPAL MEDINA MRN/PID: [id number] Technologist: Alessia Hart T Technologist 2: Date of /Age: 11 1960 / 63 years Gender: M Admission Status: Outpatient Location Performed: [facility] Diagnosis/ICD: Syncope and collapse-R55 Indication: Syncope CPT Codes: 39344 Cerebrovascular Carotid Duplex scan complete CONCLUSIONS: Right Carotid: Findings are consistent with less than 50% stenosis of the right proximal internal carotid artery. Right external carotid artery appears patent with no evidence of stenosis. The right vertebral artery is patent with antegrade flow. No evidence of hemodynamically significant stenosis in the right subclavian artery. Left Carotid: Findings are consistent with less than 50% stenosis of the left proximal internal carotid artery. Left external carotid artery appears patent with no evidence of stenosis. The left vertebral artery is patent with antegrade flow. No evidence of hemodynamically significant stenosis in the left subclavian artery. Imaging & Doppler Findings: Right Plaque Morph: The right carotid bulb demonstrates heterogenous plaque. Left Plaque Morph: The left carotid bulb demonstrates heterogenous plaque. Right Left PSV EDV PSV EDV 114 cm/s CCA P 115 cm/s 62 cm/s CCA D 66 cm/s 98 cm/s 37 cm/s ICA P 59 cm/s 18 cm/s 66 cm/s 20 cm/s ICA M 50 cm/s 18 cm/s 78 cm/s 30 cm/s ICA D 62 cm/s 25 cm/s 82 cm/s ECA 62 cm/s 24 cm/s 7 cm/s Vertebral 38 cm/s 12 cm/s 136 cm/s Subclavian 101 cm/s Right Left ICA/CCA Ratio 1.6 0.9 [id number] Warren Caldwell MD Final [facility] Work Phone: Radiology Study observation (narrative) [facility] Work Phone: US.doppler Carotid arteries - bilateralOrdered By: Warren Caldwell on 09-23-2023 [facility] Work Phone: VASC US CAROTID ARTERY DUPLE X BILATERALon 09-23-2023 VAS US CAROTID ARTERY DUPLEX BILATERAL [address], [facility] [address] [address] and Vascular Lab Report VAS US CAROTID ARTERY DUPLEX BILATERAL Patient Name: ILDEFONSO ROCHA Reading Physician: [id number] Warren Caldwell MD Study Date: 09/23/2023 Ordering Physician: [id number] OPAL MEDINA MRN/PID: [id number] Technologist: Alessia Hart T Technologist 2: Date of /Age: 11 1960 / 63 years Gender: M Admission Status: Outpatient Location Performed: [facility] Diagnosis/ICD: Syncope and collapse-R55 Indication: Syncope CPT Codes: 97101 Cerebrovascular Carotid Duplex scan complete CONCLUSIONS: Right Carotid: Findings are consistent with less than 50% stenosis of the right proximal internal carotid artery. Right external carotid artery appears patent with no evidence of stenosis. The right vertebral artery is patent with antegrade flow. No evidence of hemodynamically significant stenosis in the right subclavian artery. Left Carotid: Findings are consistent with less than 50% stenosis of the left proximal internal carotid artery. Left external carotid artery appears patent with no evidence of stenosis. The left vertebral artery is patent with antegrade flow. No evidence of hemodynamically significant stenosis in the left subclavian artery. Imaging & Doppler Findings: Right Plaque Morph: The right carotid bulb demonstrates heterogenous plaque. Left Plaque Morph: The left carotid bulb demonstrates heterogenous plaque. Right Left PSV EDV PSV EDV 114 cm/s CCA P 115 cm/s 62 cm/s CCA D 66 cm/s 98 cm/s 37 cm/s ICA P 59 cm/s 18 cm/s 66 cm/s 20 cm/s ICA M 50 cm/s 18 cm/s 78 cm/s 30 cm/s ICA D 62 cm/s 25 cm/s 82 cm/s ECA 62 cm/s 24 cm/s 7 cm/s Vertebral 38 cm/s 12 cm/s 136 cm/s Subclavian 101 cm/s Right Left ICA/CCA Ratio 1.6 0.9 [id number] Warren Caldwell MD Final [facility] CT HEAD WO IV CONTRASTon CT HEAD WO IV CONTRAST Interpreted By: Anneliese Mckeon, STUDY: CT HEAD WO IV CONTRAST; 09/04/2023 11:15 am INDICATION: Signs/Symptoms:headache and sycope. COMPARISON: None. ACCESSION NUMBER(S): [id number] ORDERING CLINICIAN: OPAL MEDINA TECHNIQUE: Noncontrast axial CT scan of head was performed. Angled reformats in brain and bone windows were generated. The images were reviewed in bone, brain, blood and soft tissue windows. Coronal and sagittal reformats are provided for review. FINDINGS: Examination is mildly degraded by patient motion. CSF Spaces: There is prominence of ventricles and sulci compatible with diffuse parenchymal volume loss. The degree of ventriculomegaly is disproportionate with size of the sulci. There is also crowding of sulci at the vertex and widening of the sylvian fissures. There is no extraaxial fluid collection. Parenchyma: There are nonspecific areas of diminished attenuation in the subcortical and periventricular white matter. The posterior fossa is degraded by beam hardening artifact. Otherwise, the minaya-white differentiation is intact. There is no mass effect or midline shift. There is no intracranial hemorrhage. Calvarium: The calvarium is unremarkable. Paranasal sinuses and mastoids: There is opacification of scattered mastoid air cells. The paranasal sinuses are clear. There is nonspecific fullness of the nasopharyngeal soft tissues. IMPRESSION: 1. Nonspecific white matter changes most likely represent small-vessel ischemic disease in a patient of this age. 2. Diffuse parenchymal volume loss. Disproportionate ventriculomegaly with crowding of sulci at the vertex and widening of the sylvian fissures could reflect normal pressure hydrocephalus in the appropriate clinical setting. 3. Nonspecific fullness of the nasopharyngeal soft tissues for which correlation with direct visualization is recommended. MACRO: None Signed by: Anneliese Garza 09/04/2023 11:25 AM Dictation workstation: [id number] [facility] CT Head WO contraston 2023 1. Nonspecific white matter changes most likely represent small-vessel ischemic disease in a patient of this age. 2. Diffuse parenchymal volume loss. Disproportionate ventriculomegaly with crowding of sulci at the vertex and widening of the sylvian fissures could reflect normal pressure hydrocephalus in the appropriate clinical setting. 3. Nonspecific fullness of the nasopharyngeal soft tissues for which correlation with direct visualization is recommended. MACRO: None Signed by: Anneliese Garza 09/04/2023 11:25 AM Dictation workstation: [id number] MMODAL Interpreted By: Anneliese Barrera, STUDY: CT HEAD WO IV CONTRAST; 09/04/2023 11:15 am INDICATION: Signs/Symptoms:headache and sycope. COMPARISON: None. ACCESSION NUMBER(S): [id number] ORDERING CLINICIAN: OPAL MEDINA TECHNIQUE: Noncontrast axial CT scan of head was performed. Angled reformats in brain and bone windows were generated. The images were reviewed in bone, brain, blood and soft tissue windows. Coronal and sagittal reformats are provided for review. FINDINGS: Examination is mildly degraded by patient motion. CSF Spaces: There is prominence of ventricles and sulci compatible with diffuse parenchymal volume loss. The degree of ventriculomegaly is disproportionate with size of the sulci. There is also crowding of sulci at the vertex and widening of the sylvian fissures. There is no extraaxial fluid collection. Parenchyma: There are nonspecific areas of diminished attenuation in the subcortical and periventricular white matter. The posterior fossa is degraded by beam hardening artifact. Otherwise, the minaya-white differentiation is intact. There is no mass effect or midline shift. There is no intracranial hemorrhage. Calvarium: The calvarium is unremarkable. Paranasal sinuses and mastoids: There is opacification of scattered mastoid air cells. The paranasal sinuses are clear. There is nonspecific fullness of the nasopharyngeal soft tissues. [facility] MMODAL Anneliese Garza, DO - 09/04/2023 Interpreted By: Anneliese Garza, STUDY: CT HEAD WO IV CONTRAST; 09/04/2023 11:15 am INDICATION: Signs/Symptoms:headache and sycope. COMPARISON: None. ACCESSION NUMBER(S): [id number] ORDERING CLINICIAN: OPAL MEDINA TECHNIQUE: Noncontrast axial CT scan of head was performed. Angled reformats in brain and bone windows were generated. The images were reviewed in bone, brain, blood and soft tissue windows. Coronal and sagittal reformats are provided for review. FINDINGS: Examination is mildly degraded by patient motion. CSF Spaces: There is prominence of ventricles and sulci compatible with diffuse parenchymal volume loss. The degree of ventriculomegaly is disproportionate with size of the sulci. There is also crowding of sulci at the vertex and widening of the sylvian fissures. There is no extraaxial fluid collection. Parenchyma: There are nonspecific areas of diminished attenuation in the subcortical and periventricular white matter. The posterior fossa is degraded by beam hardening artifact. Otherwise, the minaya-white differentiation is intact. There is no mass effect or midline shift. There is no intracranial hemorrhage. Calvarium: The calvarium is unremarkable. Paranasal sinuses and mastoids: There is opacification of scattered mastoid air cells. The paranasal sinuses are clear. There is nonspecific fullness of the nasopharyngeal soft tissues. IMPRESSION: 1. Nonspecific white matter changes most likely represent small-vessel ischemic disease in a patient of this age. 2. Diffuse parenchymal volume loss. Disproportionate ventriculomegaly with crowding of sulci at the vertex and widening of the sylvian fissures could reflect normal pressure hydrocephalus in the appropriate clinical setting. 3. Nonspecific fullness of the nasopharyngeal soft tissues for which correlation with direct visualization is recommended. MACRO: None Signed by: Anneliese Garza 09/04/2023 11:25 AM Dictation workstation: [id number] [facility] Work Phone: Radiology Study observation (narrative) [facility] Work Phone: CT Head WO contrastOrdered B y: Anneliese Garza on 09-04-2023 [facility] Work Phone: Comprehensive metabolic 2000 panelon 08-26-2023 Albumin BCP dye [Mass/Vol] 4.4 g/dL Normal 3.4-5.0 [facility] Comment on above: Performed By: #### 2 4323-8 #### CE Ascencio ([id number]) [facility] ([facility]) [id number] [place] [address] 22301 ALP [Catalytic activity/Vol] 66 U/L Normal 33-136 [facility] Comment on above: Performed By: #### 2 4323-8 #### CE Ascencio (49813) [facility] ([facility]) [id number] [place] [address] 15002 ALT With P-5'-P [Catalytic activity/Vol] 20 U/L Normal 10-52 [facility] Comment on above: Result Comment: Perla ents treated with Sulfasalazine may generate falsely decreased results for ALT. Performed By: #### 2 4323-8 #### CE Ascencio (50082) [facility] ([facility]) [id number] [place] [address] 54029 Anion gap [Moles/Vol] 11 mmol/L Normal 10-20 [facility] Comment on above: Performed By: #### 2 4323-8 #### CE CAMPBELL L (37535) [facility] ([facility]) [address] [place] [address] AST With P-5'-P [Catalytic activity/Vol] 14 U/L Normal 9-39 [facility] Comment on above: Performed By: #### 2 4323-8 #### CE CAMPBELL L (26410) [facility] ([facility]) [id number] [place] [address] 86616 Bilirubin [Mass/Vol] 0.4 mg/dL Normal 0.0-1.2 [facility] Comment on above: Performed By: #### 2 4323-8 #### CE CAMPBELL L (98451) [facility] ([facility]) [id number] [place] [address] 34923 Calcium [Mass/Vol] 9.7 mg/dL Normal 8.6-10.6 [facility] Comment on above: Performed By: #### 2 4323-8 #### CE CAMPBELL L (85692) [facility] ([facility]) [address] [place] [address] 26150 Chloride [Moles/Vol] 102 mmol/L Normal 98-107 [facility] Comment on above: Performed By: #### 2 4323-8 #### CE CAMPBELL L (83643) [facility] ([facility]) [id number] [place] [address] 58283 CO2 [Moles/Vol] 29 mmol/L Normal 21-32 [facility] Comment on above: Performed By: #### 2 4323-8 #### CE CAMPBELL L (63524) [facility] ([facility]) [id number] [place] [address] 12901 Creatinine [Mass/Vol] 0.87 mg/dL Normal 0.50-1.30 [facility] Comment on above: Performed By: #### 2 4323-8 #### CE CAMPBELL L (46815) [facility] ([facility]) [address] [place] [address] 15054 GFR/1.73 sq M.predicted MDRD (S/P/Bld) [Vol rate/Area] mL/min/{1.73_m2} Normal >60 [facility] Comment on above: Result Comment: Calc ulations of estimated GFR are performed using the 2020 CKD-EPI Study Refit equation without the race variable for the IDMS-Traceable creatinine methods. https://jasn.asnjournals.org/content//ASN.49054 27347 Performed By: #### 2 4323-8 #### CE Ascencio (79392) [facility] ([facility]) [id number] [place] [address] 22507 Glucose [Mass/Vol] 90 mg/dL Normal 74-99 [facility] Comment on above: Performed By: #### 2 4323-8 #### CE Ascencio (14534) [facility] ([facility]) [address] [place] [address] 87566 Potassium [Moles/Vol] 4.0 mmol/L Normal 3.5-5.3 [facility] Comment on above: Performed By: #### 2 4323-8 #### CE Ascencio (49330) [facility] ([facility]) [id number] [place] [address] 65812 Protein [Mass/Vol] 7.4 g/dL Normal 6.4-8.2 [facility] Comment on above: Performed By: #### 2 4323-8 #### CE Ascencio (40388) [facility] ([facility]) [address] [place] [address] 46127 Sodium [Moles/Vol] 138 mmol/L Normal 136-145 [facility] Comment on above: Performed By: #### 2 4323-8 #### CE Ascencio (51287) [facility] ([facility]) [id number] [place] [address] 97898 Urea nitrogen [Mass/Vol] 18 mg/dL Normal 6-23 [facility] Comment on above: Performed By: #### 2 4323-8 #### CE Ascencio (63052) [facility] ([facility]) [address] [place] [address] 63111 Magnesiumon 08-26-2023 Magnesium [Mass/Vol] 2.06 mg/dL Normal 1.60-2.40 [facility] Comment on above: Performed By: #### 1 9123-9 #### CE Ascencio (00261) [facility] ([facility]) [address] [place] [id number] TRANSTHORACIC ECHO (TTE) FADY Gonzalez 08-14-2023 TRANSTHORACIC ECHO (TTE) [facility], [facility], [address], [place], [place] [address] and TRANSTHORACIC ECHOCARDIOGRAM REPORT Patient Name: ILDEFONSO Shelton Physician: [id number] Savita ROCHA Study Date: 08/14/2023 Ordering Provider: [id number] OPAL MEDINA MRN/PID: [id number] Fellow: Nurse: Ela Hernandez RN Date of /Age: 11 1960 [place]: Raine Kelly RDCS years Gender: M Additional Staff: Height: 172.72 cm Admit Date: Weight: 127.46 kg Admission Status: Outpatient BSA / BMI: 2.36 m2 / 42.73 kg/m2 Department Location: [facility] Blood Pressure: 125 /85 mmHg Study Type: TRANSTHORACIC ECHO (TTE) LIMITED Diagnosis/ICD: Syncope-R55 Indication: Syncope CPT Code: Echo Limited-90133; Doppler Limited-13736; Color Doppler-94668 Patient History: BMI: Obese >30 Pertinent History: Previous DVT, HTN, LE Edema, COPD and Syncope. RALPH. Study Detail: The following Echo studies were performed: 2D, M-Mode, Doppler and color flow. Technically challenging study due to body habitus. Definity used as a contrast agent for endocardial border definition. Total contrast used for this procedure was 3 mL via IV push. PHYSICIAN INTERPRETATION: Left Ventricle: The left ventricular systolic function is normal, with an estimated ejection fraction of 60%. There are no regional wall motion abnormalities. The left ventricular cavity size is normal. Spectral Doppler shows an impaired relaxation pattern of left ventricular diastolic filling. Left Atrium: The left atrium is normal in size. Right Ventricle: The right ventricle is normal in size. There is normal right ventricular global systolic function. Right Atrium: The right atrium is normal in size. Aortic Valve: The aortic valve was not well visualized. There is no evidence of aortic valve regurgitation. The peak instantaneous gradient of the aortic valve is 8.4 mmHg. Mitral Valve: The mitral valve is normal in structure. There is no evidence of mitral valve regurgitation. Tricuspid Valve: The tricuspid valve is structurally normal. No evidence of tricuspid regurgitation. Pulmonic Valve: The pulmonic valve is not well visualized. There is no indication of pulmonic valve regurgitation. Pericardium: There is no pericardial effusion noted. Aorta: The aortic root is normal. CONCLUSIONS: 1. Left ventricular systolic function is normal with a 60% estimated ejection fraction. 2. Spectral Doppler shows an impaired relaxation pattern of left ventricular diastolic filling. QUANTITATIVE DATA SUMMARY: M-MODE MEASUREMENTS: Normal Ranges: Ao Root: 3.90 cm (2.0-3.7cm) LAs: 3.81 cm (2.7-4.0cm) AORTA MEASUREMENTS: Normal Ranges: Asc Ao, d: 3.00 cm (2.1-3.4cm) LV SYSTOLIC FUNCTION BY 2D PLANIMETRY (MOD): Normal Ranges: EF-A4C View: 65.7 % (>=55%) EF-A2C View: 63.9 % EF-Biplane: 63.6 % LV DIASTOLIC FUNCTION: Normal Ranges: MV Peak E: 0.53 m/s (0.7-1.2 m/s) MV e' 0.13 m/s (>8.0) MV lateral e' 0.14 m/s MV medial e' 0.12 m/s E/e' Ratio: 4.08 (<8.0) AORTIC VALVE: Normal Ranges: AoV Vmax: 1.45 m/s (<=1.7m/s) AoV Peak P.4 mmHg (<20mmHg) LVOT Max Jabari: 1.26 m/s (<=1.1m/s) LVOT VTI: 21.83 cm LVOT Diameter: 2.10 cm (1.8-2.4cm) AoV Area,Vmax: 3.03 cm2 (2.5-4.5cm2) RIGHT VENTRICLE: TAPSE: 20.2 mm RV s' 0.14 m/s [id number] Savita Vann MD Electronically signed on 08/14/2023 at 10:31:59 PM Final Normal [facility] US Heart TransthoracicOrdere d By: Savita Vann on 08-14-2023 Aortic Valve Area by Continuity of Peak Velocity 3.03 cm2 [facility] Work Phone: AV pk grad 8.4 mmHg [facility] Work Phone: [phone] AV pk jabari 1.45 m/s [facility] Work Phone: [phone] LV A4C EF 65.7 [facility] Work Phone: [phone] LV Biplane EF 64 % [facility] Work Phone: [phone] LVOT diam 2.10 cm [facility] Work Phone: [phone] MV avg E/e' ratio 4.08 [facility] Work Phone: [phone] RV free wall pk S' 14.00 cm/s [facility] Work Phone: [phone] Tricuspid annular plane systolic excursion 2.0 cm [facility] Work Phone: [phone] [facility] Work Phone: [phone] US Heart Transthoracicon [facility], [address] [place] [address], [address] [address] and TRANSTHORACIC ECHOCARDIOGRAM REPORT Patient Name: ILDEFONSO Shelton Physician: [id number] Savita ROCHA Study Date: 08/14/2023 Ordering Provider: [id number] OPAL MEDINA MRN/PID: [id number] Fellow: Nurse: Ela Hernandez RN Date of /Age: 11 1960 [place]: Raine Kelly RDCS years Gender: M Additional Staff: Height: 172.72 cm Admit Date: Weight: 127.46 kg Admission Status: Outpatient BSA / BMI: 2.36 m2 / 42.73 kg/m2 Department Location: [facility] Blood Pressure: 125 /85 mmHg Study Type: TRANSTHORACIC ECHO (TTE) LIMITED Diagnosis/ICD: Syncope-R55 Indication: Syncope CPT Code: Echo Limited-06300; Doppler Limited-24671; Color Doppler-11478 Patient History: BMI: Obese >30 Pertinent History: Previous DVT, HTN, LE Edema, COPD and Syncope. RALPH. Study Detail: The following Echo studies were performed: 2D, M-Mode, Doppler and color flow. Technically challenging study due to body habitus. Definity used as a contrast agent for endocardial border definition. Total contrast used for this procedure was 3 mL via IV push. PHYSICIAN INTERPRETATION: Left Ventricle: The left ventricular systolic function is normal, with an estimated ejection fraction of 60%. There are no regional wall motion abnormalities. The left ventricular cavity size is normal. Spectral Doppler shows an impaired relaxation pattern of left ventricular diastolic filling. Left Atrium: The left atrium is normal in size. Right Ventricle: The right ventricle is normal in size. There is normal right ventricular global systolic function. Right Atrium: The right atrium is normal in size. Aortic Valve: The aortic valve was not well visualized. There is no evidence of aortic valve regurgitation. The peak instantaneous gradient of the aortic valve is 8.4 mmHg. Mitral Valve: The mitral valve is normal in structure. There is no evidence of mitral valve regurgitation. Tricuspid Valve: The tricuspid valve is structurally normal. No evidence of tricuspid regurgitation. Pulmonic Valve: The pulmonic valve is not well visualized. There is no indication of pulmonic valve regurgitation. Pericardium: There is no pericardial effusion noted. Aorta: The aortic root is normal. CONCLUSIONS: 1. Left ventricular systolic function is normal with a 60% estimated ejection fraction. 2. Spectral Doppler shows an impaired relaxation pattern of left ventricular diastolic filling. QUANTITATIVE DATA SUMMARY: M-MODE MEASUREMENTS: Normal Ranges: Ao Root: 3.90 cm (2.0-3.7cm) LAs: 3.81 cm (2.7-4.0cm) AORTA MEASUREMENTS: Normal Ranges: Asc Ao, d: 3.00 cm (2.1-3.4cm) LV SYSTOLIC FUNCTION BY 2D PLANIMETRY (MOD): Normal Ranges: EF-A4C View: 65.7 % (>=55%) EF-A2C View: 63.9 % EF-Biplane: 63.6 % LV DIASTOLIC FUNCTION: Normal Ranges: MV Peak E: 0.53 m/s (0.7-1.2 m/s) MV e' 0.13 m/s (>8.0) MV lateral e' 0.14 m/s MV medial e' 0.12 m/s E/e' Ratio: 4.08 (<8.0) AORTIC VALVE: Normal Ranges: AoV Vmax: 1.45 m/s (<=1.7m/s) AoV Peak P.4 mmHg (<20mmHg) LVOT Max Jabari: 1.26 m/s (<=1.1m/s) LVOT VTI: 21.83 cm LVOT Diameter: 2.10 cm (1.8-2.4cm) AoV Area,Vmax: 3.03 cm2 (2.5-4.5cm2) RIGHT VENTRICLE: TAPSE: 20.2 mm RV s' 0.14 m/s [id number] Savita Vann MD Electronically signed on 08/14/2023 at 10:31:59 PM Final Savita Amanda MD - 08/14/2023 [facility], [address] [place] [address], [address] [address] and TRANSTHORACIC ECHOCARDIOGRAM REPORT Patient Name: ILDEFONSO Shelton Physician: [id number] Savita Vann MD [facility] Study Date: 08/14/2023 Ordering Provider: [id number] OPAL MEDINA MRN/PID: [id number] Fellow: Nurse: Ela Hernandez RN Date of /Age: 11 1960 [place]: Raine Kelly RDCS years Gender: M Additional Staff: Height: 172.72 cm Admit Date: Weight: 127.46 kg Admission Status: Outpatient BSA / BMI: 2.36 m2 / 42.73 kg/m2 Department Location: [facility] Blood Pressure: 125 /85 mmHg Study Type: TRANSTHORACIC ECHO (TTE) LIMITED Diagnosis/ICD: Syncope-R55 Indication: Syncope CPT Code: Echo Limited-16180; Doppler Limited-21223; Color Doppler-91088 Patient History: BMI: Obese >30 Pertinent History: Previous DVT, HTN, LE Edema, COPD and Syncope. RALPH. Study Detail: The following Echo studies were performed: 2D, M-Mode, Doppler and color flow. Technically challenging study due to body habitus. Definity used as a contrast agent for endocardial border definition. Total contrast used for this procedure was 3 mL via IV push. PHYSICIAN INTERPRETATION: Left Ventricle: The left ventricular systolic function is normal, with an estimated ejection fraction of 60%. There are no regional wall motion abnormalities. The left ventricular cavity size is normal. Spectral Doppler shows an impaired relaxation pattern of left ventricular diastolic filling. Left Atrium: The left atrium is normal in size. Right Ventricle: The right ventricle is normal in size. There is normal right ventricular global systolic function. Right Atrium: The right atrium is normal in size. Aortic Valve: The aortic valve was not well visualized. There is no evidence of aortic valve regurgitation. The peak instantaneous gradient of the aortic valve is 8.4 mmHg. Mitral Valve: The mitral valve is normal in structure. There is no evidence of mitral valve regurgitation. Tricuspid Valve: The tricuspid valve is structurally normal. No evidence of tricuspid regurgitation. Pulmonic Valve: The pulmonic valve is not well visualized. There is no indication of pulmonic valve regurgitation. Pericardium: There is no pericardial effusion noted. Aorta: The aortic root is normal. CONCLUSIONS: 1. Left ventricular systolic function is normal with a 60% estimated ejection fraction. 2. Spectral Doppler shows an impaired relaxation pattern of left ventricular diastolic filling. QUANTITATIVE DATA SUMMARY: M-MODE MEASUREMENTS: Normal Ranges: Ao Root: 3.90 cm (2.0-3.7cm) LAs: 3.81 cm (2.7-4.0cm) AORTA MEASUREMENTS: Normal Ranges: Asc Ao, d: 3.00 cm (2.1-3.4cm) LV SYSTOLIC FUNCTION BY 2D PLANIMETRY (MOD): Normal Ranges: EF-A4C View: 65.7 % (>=55%) EF-A2C View: 63.9 % EF-Biplane: 63.6 % LV DIASTOLIC FUNCTION: Normal Ranges: MV Peak E: 0.53 m/s (0.7-1.2 m/s) MV e' 0.13 m/s (>8.0) MV lateral e' 0.14 m/s MV medial e' 0.12 m/s E/e' Ratio: 4.08 (<8.0) AORTIC VALVE: Normal Ranges: AoV Vmax: 1.45 m/s (<=1.7m/s) AoV Peak P.4 mmHg (<20mmHg) LVOT Max Jabari: 1.26 m/s (<=1.1m/s) LVOT VTI: 21.83 cm LVOT Diameter: 2.10 cm (1.8-2.4cm) AoV Area,Vmax: 3.03 cm2 (2.5-4.5cm2) RIGHT VENTRICLE: TAPSE: 20.2 mm RV s' 0.14 m/s 91020 aSvita Vann MD Electronically signed on 08/14/2023 at 10:31:59 PM Final [facility] Work Phone: CBC panel Auto (Bld)on 07-01 Erythrocyte distribution width (RBC) [Ratio] 15.8 % High 11.5-14.5 [facility] Comment on above: Performed By: #### 5 8410-2 #### CE Ascencio (11992) [facility] ([facility]) [address] [place] [address] Hematocrit (Bld) [Volume fraction] 45.3 % Normal 41.0-52.0 [facility] Comment on above: Performed By: #### 5 8410-2 #### CE Ascencio (12442) [facility] ([facility]) [address] [place] [address] 30495 Hemoglobin (Bld) [Mass/Vol] 15.2 g/dL Normal 13.5-17.5 [facility] Comment on above: Performed By: #### 5 8410-2 #### CE Ascencio (85234) [facility] ([facility]) [address] [place] [address] 99522 MCH (RBC) [Entitic mass] 29.4 pg Normal 26.0-34.0 [facility] Comment on above: Performed By: #### 5 8410-2 #### CE Ascencio (70287) [facility] ([facility]) [address] [place] [address]8517 MCHC (RBC) [Mass/Vol] 33.6 g/dL Normal 32.0-36.0 [facility] Comment on above: Performed By: #### 5 8410-2 #### CE Ascencio (37186) [facility] ([facility]) [address] [place] [address] MCV (RBC) [Entitic vol] 88 fL Normal 80-100 [facility] Comment on above: Performed By: #### 5 8410-2 #### CE Ascencio (80500) [facility] ([facility]) [address] [place] [address] 22744 Nucleated RBC/100 WBC (Bld) [Ratio] 0.0 /100 WBCs Normal 0.0-0.0 [facility] Comment on above: Performed By: #### 5 8410-2 #### CE Ascencio (85180) [facility] ([facility]) [address] [place] [address] 52702 Platelets (Bld) [#/Vol] 302 x10*3/uL Normal 150-450 [facility] Comment on above: Performed By: #### 5 8410-2 #### CE Ascencio (30106) [facility] ([facility]) [address] [place] [address] 45412 RBC (Bld) [#/Vol] 5.17 x10*6/uL Normal 4.50-5.90 [facility] Comment on above: Performed By: #### 5 8410-2 #### CE Ascencio (89898) [facility] ([facility]) [address] [place] [address] 97761 WBC (Bld) [#/Vol] 9.6 x10*3/uL Normal 4.4-11.3 [facility] Comment on above: Performed By: #### 5 8410-2 #### CE Ascencio (90264) [facility] ([facility]) [address] [place] [address] 24610 Calcidiolon 07-01-2023 25-hydroxyvitamin D3 [Mass/Vol] 38 ng/mL Normal 30-100 [facility] Comment on above: Order Comment: Defic iency: < 20 ng/ml Insufficiency: 20-29 ng/ml Sufficiency: 30-100 ng/ml This assay accurately quantifies the sum of Vitamin D3, 25-Hydroxy and Vitamin D2,25-Hydroxy. Performed By: #### 1 989-3 #### CE Ascencio (46127) [facility] ([facility]) [address] [place] [address] Comprehensive metabolic 2000 panelon 07-01-2023 Albumin BCP dye [Mass/Vol] 4.5 g/dL Normal 3.4-5.0 [facility] Comment on above: Performed By: #### 2 4323-8 #### CE Ascencio (11967) [facility] ([facility]) [address] [place] [address] ALP [Catalytic activity/Vol] 59 U/L Normal 33-136 [facility] Comment on above: Performed By: #### 2 4323-8 #### CE Ascencio (31322) [facility] ([facility]) [id number] [place] [address] 25045 ALT With P-5'-P [Catalytic activity/Vol] 19 U/L Normal 10-52 [facility] Comment on above: Result Comment: Perla ents treated with Sulfasalazine may generate falsely decreased results for ALT. Performed By: #### 2 4323-8 #### CE Ascencio (10343) [facility] ([facility]) [address] [place] [address] Anion gap [Moles/Vol] 15 mmol/L Normal 10-20 [facility] Comment on above: Performed By: #### 2 4323-8 #### CE Ascencio (40223) [facility] ([facility]) [address] [place] [address] AST With P-5'-P [Catalytic activity/Vol] 12 U/L Normal 9-39 [facility] Comment on above: Performed By: #### 2 4323-8 #### CE Ascencio (17092) [facility] ([facility]) [address] [place] [address] Bilirubin [Mass/Vol] 0.4 mg/dL Normal 0.0-1.2 [facility] Comment on above: Performed By: #### 2 4323-8 #### CE Ascencio (49428) [facility] ([facility]) [address] [place] [address] Calcium [Mass/Vol] 10.2 mg/dL Normal 8.6-10.6 [facility] Comment on above: Performed By: #### 2 4323-8 #### CE CAMPBELL L (14687) [facility] ([facility]) [address] [place] [address] Chloride [Moles/Vol] 101 mmol/L Normal 98-107 [facility] Comment on above: Performed By: #### 2 4323-8 #### CE CAMPBELL L (61780) [facility] ([facility]) [id number] [place] [address] 68833 CO2 [Moles/Vol] 28 mmol/L Normal 21-32 [facility] Comment on above: Performed By: #### 2 4323-8 #### CE Ascencio (53702) [facility] ([facility]) [address] [place] [address] Creatinine [Mass/Vol] 0.78 mg/dL Normal 0.50-1.30 [facility] Comment on above: Performed By: #### 2 4323-8 #### CE Ascencio (17030) [facility] ([facility]) [id number] [place] [address] 06633 GFR/1.73 sq M.predicted MDRD (S/P/Bld) [Vol rate/Area] mL/min/{1.73_m2} Normal >60 [facility] Comment on above: Result Comment: Calc ulations of estimated GFR are performed using the 2020 CKD-EPI Study Refit equation without the race variable for the IDMS-Traceable creatinine methods. https://jasn.asnjournals.org/content//ASN.84043 83629 Performed By: #### 2 4323-8 #### CE Ascencio (17429) [facility] ([facility]) [address] [place] [address] Glucose [Mass/Vol] 116 mg/dL High 74-99 [facility] Comment on above: Performed By: #### 2 4323-8 #### CE Ascencio (63495) [facility] ([facility]) [address] [place] [address] 68771 Potassium [Moles/Vol] 4.2 mmol/L Normal 3.5-5.3 [facility] Comment on above: Performed By: #### 2 4323-8 #### CE Ascencio (63840) [facility] ([facility]) [address] [place] [address] 28448 Protein [Mass/Vol] 7.4 g/dL Normal 6.4-8.2 [facility] Comment on above: Performed By: #### 2 4323-8 #### CE Ascencio (69532) [facility] ([facility]) [address] [place] [address] 68152 Sodium [Moles/Vol] 140 mmol/L Normal 136-145 [facility] Comment on above: Performed By: #### 2 4323-8 #### CE Ascencio (05052) [facility] ([facility]) [address] [place] [address] 21220 Urea nitrogen [Mass/Vol] 15 mg/dL Normal 6-23 [facility] Comment on above: Performed By: #### 2 4323-8 #### CE Ascencio (85048) [facility] ([facility]) [id number] [place] [address] 41634 Lipid 1996 panelon 4 Cholesterol [Mass/Vol] 237 mg/dL High 0-199 [facility] Comment on above: Result Comment: Age Desirable Borderline High High 0-19 Y 0 - 169 170 - 199 >/= 200 20-24 Y 0 - 189 190 - 224 >/= 225 >24 Y 0 - 199 200 - 239 >/= 240 All ranges are based on fasting samples. Specific therapeutic targets will vary based on patient-specific cardiac risk. Pediatric guidelines reference:Pediatrics 2011, 128(S5).Adult guidelines reference: NCEP ATPIII Guidelines,JOSEF 2001, 258:2486-97 Venipuncture immediately after or during the administration of Metamizole may lead to falsely low results. Testing should be performed immediately prior to Metamizole dosing. Performed By: #### 2 4331-1 #### CE Ascencio (50386) [facility] ([facility]) [address] [place] [address] Cholesterol in HDL [Mass/Vol] 53.5 mg/dL Normal [facility] Comment on above: Result Comment: Age Very Low Low Normal High 0-19 Y < 35 < 40 40-45 ---- 20-24 Y ---- < 40 >45 ---- >24 Y ---- < 40 40-60 >60 Performed By: #### 2 4331-1 #### CE Ascencio (49448) [facility] ([facility]) [address] [place] [address] 43[address] Cholesterol in LDL [Mass/Vol] 154 mg/dL High <=99 [facility] Comment on above: Result Comment: Near Borderline AGE Desirable Optimal High High Very High 0-19 Y 0 - 109 --- 110-129 >/= 130 ---- 20-24 Y 0 - 119 --- 120-159 >/= 160 ---- >24 Y 0 - 99 100-129 130-159 160-189 >/=190 Performed By: #### 2 4331-1 #### CE Ascencio (47171) [facility] ([facility]) [address] [place] [address] Cholesterol in VLDL [Mass/Vol] 29 mg/dL Normal 0-40 [facility] Comment on above: Performed By: #### 2 4331-1 #### CE Ascencio (13030) [facility] ([facility]) [address] [place] [address] CHOLESTEROL/HDL RATIO 4.4 Normal [facility] Comment on above: Result Comment: Ref Values Desirable < 3.4 High Risk > 5.0 Performed By: #### 2 4331-1 #### CE Ascencio (36989) [facility] ([facility]) [address] [place] [address] NON HDL CHOLESTEROL 184 mg/dL High 0-149 [facility] Comment on above: Result Comment: Age Desirable Borderline High High Very High 0-19 Y 0 - 119 120 - 144 >/= 145 >/= 160 20-24 Y 0 - 149 150 - 189 >/= 190 ---- >24 Y 30 mg/dL above LDL Cholesterol goal Performed By: #### 2 4331-1 #### CE Ascencio (17936) [facility] ([facility]) [address] [place], [place] [id number] Triglyceride [Mass/Vol] 147 mg/dL Normal 0-149 [facility] Comment on above: Result Comment: Age Desirable Borderline High High Very High 0 D-90 D 19 - 174 ---- ---- ---- 91 D- 9 Y 0 - 74 75 - 99 >/= 100 ---- 10-19 Y 0 - 89 90 - 129 >/= 130 ---- 20-24 Y 0 - 114 115 - 149 >/= 150 ---- >24 Y 0 - 149 150 - 199 200- 499 >/= 500 Venipuncture immediately after or during the administration of Metamizole may lead to falsely low results. Testing should be performed immediately prior to Metamizole dosing. Performed By: #### 2 4331-1 #### CE Ascencio (08173) [facility] ([facility]) [address] [place], [place] [id number] TSH WITH REFLEX TO FREE T4 I F ABNORMALon 07-01-2023 TSH Qn 1.00 m[IU]/L Normal 0.44-3.98 [facility] Comment on above: Order Comment: TSH t esting is performed using different testing methodology at [facility] than at other legacy [facility]. Direct result comparisons should only be made within the same method. Performed By: #### T HYDS #### CE Ascencio (26682) [facility] [place] [facility] ([facility]) [id number] [place] [address] .Auto Diffon 01-16-2023 Basophil, Absolute 0.0 10 3/mcL Normal 0.0-0.2 [facility] ([place]) Comment on above: Performed By: #### A JEWEL, GFR, CBC, ADIFF, BMP #### [address] [address] Basophils/100 WBC (Bld) 0.3 % Normal 0.0-2.5 [facility] ([place]) Comment on above: Performed By: #### A JEWEL, GFR, CBC, ADIFF, BMP #### [address] [address] Eosinophil, Absolute 0.0 10 3/mcL Normal 0.0-0.4 [facility] ([place]) Comment on above: Performed By: #### A JEWEL, GFR, CBC, ADIFF, BMP #### [address] [address] Eosinophils/100 WBC (Bld) 0.2 % Normal 0.0-7.0 [facility] ([place]) Comment on above: Performed By: #### A JEWEL, GFR, CBC, ADIFF, BMP #### [address] [address] Lymphocyte, Absolute 3.0 10 3/mcL Normal 0.8-3.9 [facility] ([place]) Comment on above: Performed By: #### A JEWEL, GFR, CBC, ADIFF, BMP #### [address] [address] Lymphocytes/100 WBC (Bld) 18.9 % Normal 10.0-50.0 [facility] ([place]) Comment on above: Performed By: #### A JEWEL, GFR, CBC, ADIFF, BMP #### [address] [address] Monocyte, Absolute 1.8 10 3/mcL High 0.2-1.0 [facility] ([place]) Comment on above: Performed By: #### A JEWEL, GFR, CBC, ADIFF, BMP #### [address] [address] Monocytes/100 WBC (Bld) 11.4 % Normal 1.7-13.0 [facility] ([place]) Comment on above: Performed By: #### A JEWEL, GFR, CBC, ADIFF, BMP #### [address] [address] Neutrophils/100 WBC (Bld) 69.2 % Normal 37.0-80.0 [facility] ([place]) Comment on above: Performed By: #### A JEWEL, GFR, CBC, ADIFF, BMP #### [address] [address] .GFRon 01-16-2023 GFR 110 ml/min/1.73sqm Normal [facility] ([place]) Comment on above: Result Comment: GFR Population mean for , Non- Americans Ages 20-29 = 116 mL/min/1.73 sq.m. Ages 30-39 = 107 mL/min/1.73 sq.m. Ages 40-49 = 99 mL/min/1.73 sq.m. Ages 50-59 = 93 mL/min/1.73 sq.m. Ages 60-69 = 85 mL/min/1.73 sq.m. Ages 70+ = 75 mL/min/1.73 sq.m. Chronic Kidney Disease: Less than 60 mL/min/1.73 square meters End Stage Renal Disease: Less than 15 mL/min/1.73 square meters Performed By: #### A JEWEL, GFR, CBC, ADIFF, BMP #### [address] [address] GFR Non- 91 ml/min/1.73sqm Normal [facility] ([place]) Comment on above: Result Comment: GFR Population mean for , Non- Americans Ages 20-29 = 116 mL/min/1.73 sq.m. Ages 30-39 = 107 mL/min/1.73 sq.m. Ages 40-49 = 99 mL/min/1.73 sq.m. Ages 50-59 = 93 mL/min/1.73 sq.m. Ages 60-69 = 85 mL/min/1.73 sq.m. Ages 70+ = 75 mL/min/1.73 sq.m. Chronic Kidney Disease: Less than 60 mL/min/1.73 square meters End Stage Renal Disease: Less than 15 mL/min/1.73 square meters Performed By: #### A JEWEL, GFR, CBC, ADIFF, BMP #### [address] [address] .NEUABSon 01-16-2023 Neutrophil, Absolute 11.0 10 3/mcL High 2.9-6.2 A [facility] ([place]) Comment on above: Performed By: #### A JEWEL, GFR, CBC, ADIFF, BMP #### [address] [address] BMPon 01-16-2023 BUN/Creatinine Ratio 23 ratio Normal 7-27 [facility] ([place]) Comment on above: Performed By: #### A JEWEL, GFR, CBC, ADIFF, BMP #### [address] [address] Calcium [Mass/Vol] 8.9 mg/dL Normal 8.4-10.2 [facility] ([place]) Comment on above: Performed By: #### A JEWEL, GFR, CBC, ADIFF, BMP #### [address] [address] Chloride [Moles/Vol] 107 mmol/L Normal 98-107 [facility] ([place]) Comment on above: Performed By: #### A JEWEL, GFR, CBC, ADIFF, BMP #### [address] [address] CO2 [Moles/Vol] 27 mmol/L Normal 23-31 [facility] ([place]) Comment on above: Performed By: #### A JEWEL, GFR, CBC, ADIFF, BMP #### [address] [address] Creatinine [Mass/Vol] 0.86 mg/dL Normal 0.70-1.30 [facility] ([place]) Comment on above: Performed By: #### A JEWEL, GFR, CBC, ADIFF, BMP #### [address] [address] Electrolyte Balance 9.0 mEq/L Normal 4.0-15.0 [facility] ([place]) Comment on above: Performed By: #### A JEWEL, GFR, CBC, ADIFF, BMP #### [address] [address] Glucose [Mass/Vol] 104 mg/dL Normal 80-115 [facility] ([place]) Comment on above: Performed By: #### A JEWEL, GFR, CBC, ADIFF, BMP #### [address] [address] Potassium [Moles/Vol] 4.5 mmol/L Normal 3.5-5.1 [facility] ([place]) Comment on above: Performed By: #### A JEWEL, GFR, CBC, ADIFF, BMP #### [address] [address] Sodium [Moles/Vol] 143 mmol/L Normal 136-145 [facility] ([place]) Comment on above: Performed By: #### A JEWEL, GFR, CBC, ADIFF, BMP #### [address] [address] Urea nitrogen [Mass/Vol] 20 mg/dL High 7-18 [facility] ([place]) Comment on above: Performed By: #### A JEWEL, GFR, CBC, ADIFF, BMP #### [address] [address] CBCon 01-16-2023 Erythrocyte distribution width (RBC) [Ratio] 15.0 % High 11.5-14.5 [facility] ([place]) Comment on above: Performed By: #### A JEWEL, GFR, CBC, ADIFF, BMP #### [address] [address] Hematocrit (Bld) [Volume fraction] 34.9 % Low 42.0-52.0 [facility] ([place]) Comment on above: Performed By: #### A JEWEL, GFR, CBC, ADIFF, BMP #### [address] [address] Hgb 11.9 G/dL Low 14.0-18.0 [facility] ([place]) Comment on above: Performed By: #### A JEWEL, GFR, CBC, ADIFF, BMP #### [address] [address] MCH (RBC) [Entitic mass] 30.0 pg Normal 27.0-31.2 [facility] ([place]) Comment on above: Performed By: #### A JEWEL, GFR, CBC, ADIFF, BMP #### [address] [address] MCHC 34.1 G/dL Normal 31.8-35.4 [facility] ([place]) Comment on above: Performed By: #### A JEWEL, GFR, CBC, ADIFF, BMP #### [address] [address] MCV (RBC) [Entitic vol] 88.0 fL Normal 80.0-94.0 [facility] ([place]) Comment on above: Performed By: #### A JEWEL, GFR, CBC, ADIFF, BMP #### [address] [address] Platelet 264 10 3/mcL Normal 130-400 [facility] ([place]) Comment on above: Performed By: #### A JEWEL, GFR, CBC, ADIFF, BMP #### [address] [address] Platelet mean volume (Bld) [Entitic vol] 7.7 fL Normal 7.4-10.4 [facility] ([place]) Comment on above: Performed By: #### A JEWEL, GFR, CBC, ADIFF, BMP #### [address] [address] RBC 3.96 10 6/mcL Low 4.04-6.13 [facility] ([place]) Comment on above: Performed By: #### A JEWEL, GFR, CBC, ADIFF, BMP #### [address] [address] WBC 15.9 10 3/mcL High 4.6-10.8 [facility] ([place]) Comment on above: Performed By: #### A JEWEL, GFR, CBC, ADIFF, BMP #### Yadiel Bonnie [address] [place], [place] [address] LABORATORYOrdered By: SYSTEM SYSTEM on 01-16-2023 Basophil, Absolute 0.0 103/mcL Invalid Interpretation Code 0.0 - 0.2 10^3/mcL AO Workflow SS Basophils/100 WBC (Bld) 0.3 % Invalid Interpretation Code 0.0 - 2.5 % AO Workflow SS Calcium [Mass/Vol] 8.9 mg/dL Invalid Interpretation Code 8.4 - 10.2 mg/dL AO ADM SS Chloride [Moles/Vol] 107 mmol/L Invalid Interpretation Code 98 - 107 mmol/L AO ADM SS CO2 [Moles/Vol] 27 mmol/L Invalid Interpretation Code 23 - 31 mmol/L AO ADM SS Creatinine [Mass/Vol] 0.86 mg/dL Invalid Interpretation Code 0.70 - 1.30 mg/dL AO ADM SS Electrolyte Balance 9.0 mEq/L Invalid Interpretation Code 4.0 - 15.0 mEq/L AO ADM SS Eosinophil, Absolute 0.0 103/mcL Invalid Interpretation Code 0.0 - 0.4 10^3/mcL AO Workflow SS Eosinophils/100 WBC (Bld) 0.2 % Invalid Interpretation Code 0.0 - 7.0 % AO Workflow SS Erythrocyte distribution width (RBC) [Ratio] 15.0 % Invalid Interpretation Code 11.5 - 14.5 % AO Workflow SS GFR/1.73 sq M.predicted among blacks MDRD (S/P/Bld) [Vol rate/Area] 110 ml/min/1.73sqm Invalid Interpretation Code AO Chemistry S Comment on above: Interpretive Data: GFR Population mean for , Non- Americans Ages 20-29 = 116 mL/min/1.73 sq.m. Ages 30-39 = 107 mL/min/1.73 sq.m. Ages 40-49 = 99 mL/min/1.73 sq.m. Ages 50-59 = 93 mL/min/1.73 sq.m. Ages 60-69 = 85 mL/min/1.73 sq.m. Ages 70+ = 75 mL/min/1.73 sq.m. Chronic Kidney Disease: Less than 60 mL/min/1.73 square meters End Stage Renal Disease: Less than 15 mL/min/1.73 square meters GFR/1.73 sq M.predicted among non-blacks MDRD (S/P/Bld) [Vol rate/Area] 91 ml/min/1.73sqm Invalid Interpretation Code AO Chemistry S Comment on above: Interpretive Data: GFR Population mean for , Non- Americans Ages 20-29 = 116 mL/min/1.73 sq.m. Ages 30-39 = 107 mL/min/1.73 sq.m. Ages 40-49 = 99 mL/min/1.73 sq.m. Ages 50-59 = 93 mL/min/1.73 sq.m. Ages 60-69 = 85 mL/min/1.73 sq.m. Ages 70+ = 75 mL/min/1.73 sq.m. Chronic Kidney Disease: Less than 60 mL/min/1.73 square meters End Stage Renal Disease: Less than 15 mL/min/1.73 square meters Glucose [Mass/Vol] 104 mg/dL Invalid Interpretation Code 80 - 115 mg/dL AO ADM SS Hematocrit (Bld) [Volume fraction] 34.9 % Invalid Interpretation Code 42.0 - 52.0 % AO Workflow SS Hemoglobin (Bld) [Mass/Vol] 11.9 G/dL Invalid Interpretation Code 14.0 - 18.0 G/dL AO Workflow SS Lymphocyte, Absolute 3.0 103/mcL Invalid Interpretation Code 0.8 - 3.9 10^3/mcL AO Workflow SS Lymphocytes/100 WBC (Bld) 18.9 % Invalid Interpretation Code 10.0 - 50.0 % AO Workflow SS MCH (RBC) [Entitic mass] 30.0 pg Invalid Interpretation Code 27.0 - 31.2 pg AO Workflow SS MCHC 34.1 G/dL Invalid Interpretation Code 31.8 - 35.4 G/dL AO Workflow SS MCV (RBC) [Entitic vol] 88.0 fL Invalid Interpretation Code 80.0 - 94.0 fL AO Workflow SS Monocyte, Absolute 1.8 103/mcL Invalid Interpretation Code 0.2 - 1.0 10^3/mcL AO Workflow SS Monocytes/100 WBC (Bld) 11.4 % Invalid Interpretation Code 1.7 - 13.0 % AO Workflow SS Neutrophil, Absolute 11.0 103/mcL Invalid Interpretation Code 2.9 - 6.2 10^3/mcL AO Workflow SS Neutrophils/100 WBC (Bld) 69.2 % Invalid Interpretation Code 37.0 - 80.0 % AO Workflow SS Platelet mean volume (Bld) [Entitic vol] 7.7 fL Invalid Interpretation Code 7.4 - 10.4 fL AO Workflow SS Platelets (Bld) [#/Vol] 264 103/mcL Invalid Interpretation Code 130 - 400 10^3/mcL AO Workflow SS Potassium [Moles/Vol] 4.5 mmol/L Invalid Interpretation Code 3.5 - 5.1 mmol/L AO ADM SS RBC (Bld) [#/Vol] 3.96 106/mcL Invalid Interpretation Code 4.04 - 6.13 10^6/mcL AO Workflow SS Sodium [Moles/Vol] 143 mmol/L Invalid Interpretation Code 136 - 145 mmol/L AO ADM SS Urea nitrogen [Mass/Vol] 20 mg/dL Invalid Interpretation Code 7 - 18 mg/dL AO ADM SS Urea nitrogen/Creatinine [Mass ratio] 23 ratio Invalid Interpretation Code 7 - 27 ratio AO ADM SS WBC (Bld) [#/Vol] 15.9 103/mcL Invalid Interpretation Code 4.6 - 10.8 10^3/mcL AO Workflow SS .GFRon 01-15-2023 GFR 93 ml/min/1.73sqm Normal [facility]ly [facility], [facility] ([place]) Comment on above: Result Comment: GFR Population mean for , Non- Americans Ages 20-29 = 116 mL/min/1.73 sq.m. Ages 30-39 = 107 mL/min/1.73 sq.m. Ages 40-49 = 99 mL/min/1.73 sq.m. Ages 50-59 = 93 mL/min/1.73 sq.m. Ages 60-69 = 85 mL/min/1.73 sq.m. Ages 70+ = 75 mL/min/1.73 sq.m. Chronic Kidney Disease: Less than 60 mL/min/1.73 square meters End Stage Renal Disease: Less than 15 mL/min/1.73 square meters Performed By: #### A NSG, ABOG #### [facility] [place] [facility] [address] [place] [address] #### BMP, GFR #### [address] [address] GFR Non- 77 ml/min/1.73sqm Normal [facility], [facility] ([place]) Comment on above: Result Comment: GFR Population mean for , Non- Americans Ages 20-29 = 116 mL/min/1.73 sq.m. Ages 30-39 = 107 mL/min/1.73 sq.m. Ages 40-49 = 99 mL/min/1.73 sq.m. Ages 50-59 = 93 mL/min/1.73 sq.m. Ages 60-69 = 85 mL/min/1.73 sq.m. Ages 70+ = 75 mL/min/1.73 sq.m. Chronic Kidney Disease: Less than 60 mL/min/1.73 square meters End Stage Renal Disease: Less than 15 mL/min/1.73 square meters Performed By: #### A NSG, ABOG #### [facility] [address] [place] [address] #### BMP, GFR #### [place] [address] BMPon 01-15-2023 BUN/Creatinine Ratio 19 ratio Normal 7-27 [facility] ([place]) Comment on above: Performed By: #### A NSG, ABOG #### [facility] [address] [place] [address] #### BMP, GFR #### [address] [address] Calcium [Mass/Vol] 9.0 mg/dL Normal 8.4-10.2 [facility] ([place]) Comment on above: Performed By: #### A NSG, ABOG #### [facility] [address] [place] [id number] #### BMP, GFR #### [address] [address] Chloride [Moles/Vol] 106 mmol/L Normal 98-107 [facility] ([place]) Comment on above: Performed By: #### A NSG, ABOG #### [facility] [address] [place] [id number] #### BMP, GFR #### [address] [address] CO2 [Moles/Vol] 25 mmol/L Normal 23-31 [facility], [facility] ([place]) Comment on above: Performed By: #### A NSG, ABOG #### [facility] [address] [place], [place] [address] #### BMP, GFR #### [address] [address] Creatinine [Mass/Vol] 0.99 mg/dL Normal 0.70-1.30 [facility] ([place]) Comment on above: Performed By: #### A NSG, ABOG #### [facility] [address] [place] [id number] #### BMP, GFR #### [address] [address] Electrolyte Balance 12.0 mEq/L Normal 4.0-15.0 [facility] ([place]) Comment on above: Performed By: #### A NSG, ABOG #### [facility] [address] [place] [id number] #### BMP, GFR #### [place] [id number] Glucose [Mass/Vol] 102 mg/dL Normal 80-115 [facility] ([place]) Comment on above: Performed By: #### A NSG, ABOG #### [facility] [address] [place] [phone] #### BMP, GFR #### [address] [address] Potassium [Moles/Vol] 4.1 mmol/L Normal 3.5-5.1 [facility] ([place]) Comment on above: Performed By: #### A NSG, ABOG #### [facility] [address] [place] [phone] #### BMP, GFR #### [address] [address] Sodium [Moles/Vol] 143 mmol/L Normal 136-145 [facility] ([place]) Comment on above: Performed By: #### A NSG, ABOG #### [facility] [address] [place], [place] [address] #### BMP, GFR #### [facility] [address] [place] [address] Urea nitrogen [Mass/Vol] 19 mg/dL High 7-18 [facility] ([place]) Comment on above: Performed By: #### A NSG, ABOG #### [facility] [address] [place], [place] [address] #### BMP, GFR #### [facility] [address] [place] [id number] Gel ABOon 01-15-2023 ABO/Rh Interp Positive Invalid Interpretation Code [facility] ([place]) Comment on above: Performed By: #### A NSG, ABOG #### [facility] [address] [place] [phone] #### BMP, GFR #### [facility] [address] [place] [address] Gel ABSon 01-15-2023 Antibody Screen Gel Negative Normal [facility] ([place]) Comment on above: Performed By: #### A NSG, ABOG #### [facility] [address] [place], [place] [address] #### BMP, GFR #### [place] [address] LABORATORYOrdered By: Dinora Reed on 01-15-2023 ABO/Rh Interp Positive Invalid Interpretation Code AO BB SS Antibody Screen Gel Negative ABSC (01/15/23 6:05 AM) Invalid Interpretation Code AO BB SS LABORATORYOrdered By: SYSTEM SYSTEM on 01-15-2023 Calcium [Mass/Vol] 9.0 mg/dL Invalid Interpretation Code 8.4 - 10.2 mg/dL AO ADM SS Chloride [Moles/Vol] 106 mmol/L Invalid Interpretation Code 98 - 107 mmol/L AO ADM SS CO2 [Moles/Vol] 25 mmol/L Invalid Interpretation Code 23 - 31 mmol/L AO ADM SS Creatinine [Mass/Vol] 0.99 mg/dL Invalid Interpretation Code 0.70 - 1.30 mg/dL AO ADM SS Electrolyte Balance 12.0 mEq/L Invalid Interpretation Code 4.0 - 15.0 mEq/L AO ADM SS GFR/1.73 sq M.predicted among blacks MDRD (S/P/Bld) [Vol rate/Area] 93 ml/min/1.73sqm Invalid Interpretation Code AO Chemistry S Comment on above: Interpretive Data: GFR Population mean for , Non- Americans Ages 20-29 = 116 mL/min/1.73 sq.m. Ages 30-39 = 107 mL/min/1.73 sq.m. Ages 40-49 = 99 mL/min/1.73 sq.m. Ages 50-59 = 93 mL/min/1.73 sq.m. Ages 60-69 = 85 mL/min/1.73 sq.m. Ages 70+ = 75 mL/min/1.73 sq.m. Chronic Kidney Disease: Less than 60 mL/min/1.73 square meters End Stage Renal Disease: Less than 15 mL/min/1.73 square meters GFR/1.73 sq M.predicted among non-blacks MDRD (S/P/Bld) [Vol rate/Area] 77 ml/min/1.73sqm Invalid Interpretation Code AO Chemistry S Comment on above: Interpretive Data: GFR Population mean for , Non- Americans Ages 20-29 = 116 mL/min/1.73 sq.m. Ages 30-39 = 107 mL/min/1.73 sq.m. Ages 40-49 = 99 mL/min/1.73 sq.m. Ages 50-59 = 93 mL/min/1.73 sq.m. Ages 60-69 = 85 mL/min/1.73 sq.m. Ages 70+ = 75 mL/min/1.73 sq.m. Chronic Kidney Disease: Less than 60 mL/min/1.73 square meters End Stage Renal Disease: Less than 15 mL/min/1.73 square meters Glucose [Mass/Vol] 102 mg/dL Invalid Interpretation Code 80 - 115 mg/dL AO ADM SS Potassium [Moles/Vol] 4.1 mmol/L Invalid Interpretation Code 3.5 - 5.1 mmol/L AO ADM SS Sodium [Moles/Vol] 143 mmol/L Invalid Interpretation Code 136 - 145 mmol/L AO ADM SS Urea nitrogen [Mass/Vol] 19 mg/dL Invalid Interpretation Code 7 - 18 mg/dL AO ADM SS Urea nitrogen/Creatinine [Mass ratio] 19 ratio Invalid Interpretation Code 7 - 27 ratio AO ADM SS XR KNEE 1 OR 2 VIEWS RIGHTon 01-15-2023 XR KNEE 1 OR 2 VIEWS RIGHT ORIGINAL EXAMINATION: POSTOPERATIVE KNEE TECHNIQUE: 2 views of theright knee were obtained. COMPARISON: CT right knee 01/07/2023 HISTORY: ORDERING SYSTEM PROVIDED HISTORY: Reason for Exam: Status Post Arthroplasty FINDINGS: There is normal mineralization. No acute fracture or dislocation is seen. The patient is status post right knee replacement with appropriate positioning of the prosthesis. There are postsurgical changes with a small joint effusion. IMPRESSION: Status post right knee replacement. Interpreted by: Eric Morrison MD Preliminary Report By: Eric Morrison MD Electronically signed By Eric Morrison MD Dictated Date: 01/15/2023 9:32:59 AM Prelim Date: 01/15/2023 9:33:34 AM Sign Date: 01/15/2023 9:33:34 AM Ordering Provider: GRICELDA OLIVER [facility] ([place]) CT KNEE W/O CONTRAST RIGHTon 01-07-2023 CT KNEE W/O CONTRAST RIGHT ORIGINAL EXAMINATION: CT OF THE RIGHT KNEE WITHOUT CONTRAST 01/07/2023 3:26 pm TECHNIQUE: CT of the right knee was performed without the administration of intravenous contrast. Multiplanar reformatted images are provided for review. Automated exposure control, iterative reconstruction, and/or weight based adjustment of the mA/kV was utilized to reduce the radiation dose to as low as reasonably achievable. COMPARISON: None. HISTORY ORDERING SYSTEM PROVIDED HISTORY: Reason for Exam: Varus deformity right knee pain. FINDINGS: No acute fracture or dislocation. Normal osseous mineralization. No visible aggressive osseous lesions. There is severe medial femorotibial compartment joint space narrowing with subchondral sclerosis, marginal osteophytes, and tiny subchondral cysts. There is mild to moderate lateral femorotibial compartment joint space narrowing with small marginal osteophytes. There is moderate patellofemoral compartment joint space narrowing with marginal osteophytes and tiny subchondral cysts. No significant joint effusion. An intracapsular body posterior to the intercondylar notch measures up to 0.4 cm. No significant volume of fluid is evident of a popliteal cyst. Tendons and ligaments are suboptimally evaluated on this examination. No severe muscle atrophy. Mild gluteus minimus atrophy. Provided images of the hip and hemipelvis exhibit no acute osseous abnormalities or aggressive osseous lesions. Mild degenerative changes of the hip. The included intrapelvic contents exhibit no acute abnormalities. Provided images of the ankle exhibit no acute osseous abnormalities or aggressive osseous lesions. Mild atherosclerosis. IMPRESSION: 1. No acute osseous abnormalities or aggressive osseous lesions. 2. 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 A 0.4 cm intracapsular body posterior to the intercondylar notch. Interpreted by: Garrick Castillo DO Preliminary Report By: Garrick Castillo DO Electronically signed By Garrick Castillo DO Dictated Date: 01/07/2023 3:37:08 PM Prelim Date: 01/07/2023 3:41:18 PM Sign Date: 01/07/2023 3:41:18 PM Ordering Provider: GRICELDA Yepez [facility], [facility] ([place]) .Auto Diffon 12-17-2022 Basophil, Absolute 0.1 10 3/mcL Normal 0.0-0.2 [facility] ([place]) Comment on above: Performed By: #### A JEWEL, GFR, CBC, ADIFF, BMP #### [address] [address] Basophils/100 WBC (Bld) 1.4 % Normal 0.0-2.5 [facility] ([place]) Comment on above: Performed By: #### A JEWEL, GFR, CBC, ADIFF, BMP #### [address] [address] Eosinophil, Absolute 0.3 10 3/mcL Normal 0.0-0.4 [facility] ([place]) Comment on above: Performed By: #### A JEWEL, GFR, CBC, ADIFF, BMP #### [address] [address] Eosinophils/100 WBC (Bld) 2.7 % Normal 0.0-7.0 [facility] ([place]) Comment on above: Performed By: #### A JEWEL, GFR, CBC, ADIFF, BMP #### [address] [address] Lymphocyte, Absolute 3.2 10 3/mcL Normal 0.8-3.9 [facility] ([place]) Comment on above: Performed By: #### A JEWEL, GFR, CBC, ADIFF, BMP #### [address] [address] Lymphocytes/100 WBC (Bld) 32.9 % Normal 10.0-50.0 [facility] ([place]) Comment on above: Performed By: #### A JEWEL, GFR, CBC, ADIFF, BMP #### [address] [address] Monocyte, Absolute 1.1 10 3/mcL High 0.2-1.0 [facility] ([place]) Comment on above: Performed By: #### A JEWEL, GFR, CBC, ADIFF, BMP #### [address] [address] Monocytes/100 WBC (Bld) 11.3 % Normal 1.7-13.0 [facility] ([place]) Comment on above: Performed By: #### A JEWEL, GFR, CBC, ADIFF, BMP #### [address] [address] Neutrophils/100 WBC (Bld) 51.7 % Normal 37.0-80.0 [facility] ([place]) Comment on above: Performed By: #### A JEWEL, GFR, CBC, ADIFF, BMP #### [address] [address] .GFRon 12-17-2022 GFR Non- 77 ml/min/1.73sqm Normal [facility] ([place]) Comment on above: Result Comment: GFR Population mean for , Non- Americans Ages 20-29 = 116 mL/min/1.73 sq.m. Ages 30-39 = 107 mL/min/1.73 sq.m. Ages 40-49 = 99 mL/min/1.73 sq.m. Ages 50-59 = 93 mL/min/1.73 sq.m. Ages 60-69 = 85 mL/min/1.73 sq.m. Ages 70+ = 75 mL/min/1.73 sq.m. Chronic Kidney Disease: Less than 60 mL/min/1.73 square meters End Stage Renal Disease: Less than 15 mL/min/1.73 square meters Performed By: #### A JEWEL, GFR, CBC, ADIFF, BMP #### [address] [address] GFR 93 ml/min/1.73sqm Normal [facility] ([place]) Comment on above: Result Comment: GFR Population mean for , Non- Americans Ages 20-29 = 116 mL/min/1.73 sq.m. Ages 30-39 = 107 mL/min/1.73 sq.m. Ages 40-49 = 99 mL/min/1.73 sq.m. Ages 50-59 = 93 mL/min/1.73 sq.m. Ages 60-69 = 85 mL/min/1.73 sq.m. Ages 70+ = 75 mL/min/1.73 sq.m. Chronic Kidney Disease: Less than 60 mL/min/1.73 square meters End Stage Renal Disease: Less than 15 mL/min/1.73 square meters Performed By: #### A JEWEL, GFR, CBC, ADIFF, BMP #### [address] [address] .NEUABSon 12-17-2022 Neutrophil, Absolute 5.1 10 3/mcL Normal 2.9-6.2 [facility] ([place]) Comment on above: Performed By: #### A JEWEL, GFR, CBC, ADIFF, BMP #### [address] [address] ALBon 12-17-2022 Albumin Level 4.0 G/dL Normal 3.4-4.8 [facility] ([place]) Comment on above: Performed By: #### A JEWEL, GFR, CBC, ADIFF, BMP #### [address] [address] BMPon 12-17-2022 BUN/Creatinine Ratio 17 ratio Normal 7-27 [facility] ([place]) Comment on above: Performed By: #### A JEWEL, GFR, CBC, ADIFF, BMP #### [address] [address] Calcium [Mass/Vol] 9.3 mg/dL Normal 8.4-10.2 [facility] ([place]) Comment on above: Performed By: #### A JEWEL, GFR, CBC, ADIFF, BMP #### [address] [address] Chloride [Moles/Vol] 103 mmol/L Normal 98-107 [facility] ([place]) Comment on above: Performed By: #### A JEWEL, GFR, CBC, ADIFF, BMP #### [address] [address] CO2 [Moles/Vol] 29 mmol/L Normal 23-31 [facility] ([place]) Comment on above: Performed By: #### A JEWEL, GFR, CBC, ADIFF, BMP #### [address] [address] Creatinine [Mass/Vol] 0.99 mg/dL Normal 0.70-1.30 [facility] ([place]) Comment on above: Performed By: #### A JEWEL, GFR, CBC, ADIFF, BMP #### [address] [address] Electrolyte Balance 11.0 mEq/L Normal 4.0-15.0 [facility] ([place]) Comment on above: Performed By: #### A JEWEL, GFR, CBC, ADIFF, BMP #### [address] [address] Glucose [Mass/Vol] 106 mg/dL Normal 80-115 [facility] ([place]) Comment on above: Performed By: #### A JEWEL, GFR, CBC, ADIFF, BMP #### [address] [address] Potassium [Moles/Vol] 3.2 mmol/L Low 3.5-5.1 [facility] ([place]) Comment on above: Performed By: #### A JEWEL, GFR, CBC, ADIFF, BMP #### [address] [address] Sodium [Moles/Vol] 143 mmol/L Normal 136-145 [facility] ([place]) Comment on above: Performed By: #### A JEWEL, GFR, CBC, ADIFF, BMP #### [address] [address] Urea nitrogen [Mass/Vol] 17 mg/dL Normal 7-18 [facility] ([place]) Comment on above: Performed By: #### A JEWEL, GFR, CBC, ADIFF, BMP #### [address] [address] CBCon 12-17-2022 Erythrocyte distribution width (RBC) [Ratio] 16.0 % High 11.5-14.5 [facility] ([place]) Comment on above: Order Comment: Pre-A dmission Testing Performed By: #### A JEWEL, GFR, CBC, ADIFF, BMP #### [address] [address] Hematocrit (Bld) [Volume fraction] 44.3 % Normal 42.0-52.0 [facility] ([place]) Comment on above: Order Comment: Pre-A dmission Testing Performed By: #### A JEWEL, GFR, CBC, ADIFF, BMP #### [address] [address] Hgb 15.7 G/dL Normal 14.0-18.0 [facility] ([place]) Comment on above: Order Comment: Pre-A dmission Testing Performed By: #### A JEWEL, GFR, CBC, ADIFF, BMP #### [address] [address] MCH (RBC) [Entitic mass] 30.3 pg Normal 27.0-31.2 [facility] ([place]) Comment on above: Order Comment: Pre-A dmission Testing Performed By: #### A JEWEL, GFR, CBC, ADIFF, BMP #### [address] [address] MCHC 35.6 G/dL High 31.8-35.4 [facility] ([place]) Comment on above: Order Comment: Pre-A dmission Testing Performed By: #### A JEWEL, GFR, CBC, ADIFF, BMP #### [address] [address] MCV (RBC) [Entitic vol] 85.3 fL Normal 80.0-94.0 [facility] ([place]) Comment on above: Order Comment: Pre-A dmission Testing Performed By: #### A JEWEL, GFR, CBC, ADIFF, BMP #### [address] [address] Platelet 299 10 3/mcL Normal 130-400 [facility] ([place]) Comment on above: Order Comment: Pre-A dmission Testing Performed By: #### A JEWEL, GFR, CBC, ADIFF, BMP #### [address] [address] Platelet mean volume (Bld) [Entitic vol] 7.6 fL Normal 7.4-10.4 [facility] ([place]) Comment on above: Order Comment: Pre-A dmission Testing Performed By: #### A JEWEL, GFR, CBC, ADIFF, BMP #### [address] [address] RBC 5.19 10 6/mcL Normal 4.04-6.13 [facility] ([place]) Comment on above: Order Comment: Pre-A dmission Testing Performed By: #### A JEWEL, GFR, CBC, ADIFF, BMP #### [address] [address] WBC 9.8 10 3/mcL Normal 4.6-10.8 [facility] ([place]) Comment on above: Order Comment: Pre-A dmission Testing Performed By: #### A JEWEL, GFR, CBC, ADIFF, BMP #### [address] [address] LABORATORYOrdered By: SYSTEM SYSTEM on 12-17-2022 Albumin BCP dye [Mass/Vol] 4.0 G/dL Invalid Interpretation Code 3.4 - 4.8 G/dL AO ADM SS Basophil, Absolute 0.1 103/mcL Invalid Interpretation Code 0.0 - 0.2 10^3/mcL AO Workflow SS Basophils/100 WBC (Bld) 1.4 % Invalid Interpretation Code 0.0 - 2.5 % AO Workflow SS Calcium [Mass/Vol] 9.3 mg/dL Invalid Interpretation Code 8.4 - 10.2 mg/dL AO ADM SS Chloride [Moles/Vol] 103 mmol/L Invalid Interpretation Code 98 - 107 mmol/L AO ADM SS CO2 [Moles/Vol] 29 mmol/L Invalid Interpretation Code 23 - 31 mmol/L AO ADM SS Creatinine [Mass/Vol] 0.99 mg/dL Invalid Interpretation Code 0.70 - 1.30 mg/dL AO ADM SS Electrolyte Balance 11.0 mEq/L Invalid Interpretation Code 4.0 - 15.0 mEq/L AO ADM SS Eosinophil, Absolute 0.3 103/mcL Invalid Interpretation Code 0.0 - 0.4 10^3/mcL AO Workflow SS Eosinophils/100 WBC (Bld) 2.7 % Invalid Interpretation Code 0.0 - 7.0 % AO Workflow SS Erythrocyte distribution width (RBC) [Ratio] 16.0 % Invalid Interpretation Code 11.5 - 14.5 % AO Workflow SS GFR/1.73 sq M.predicted among blacks MDRD (S/P/Bld) [Vol rate/Area] 93 ml/min/1.73sqm Invalid Interpretation Code AO Chemistry S Comment on above: Interpretive Data: GFR Population mean for , Non- Americans Ages 20-29 = 116 mL/min/1.73 sq.m. Ages 30-39 = 107 mL/min/1.73 sq.m. Ages 40-49 = 99 mL/min/1.73 sq.m. Ages 50-59 = 93 mL/min/1.73 sq.m. Ages 60-69 = 85 mL/min/1.73 sq.m. Ages 70+ = 75 mL/min/1.73 sq.m. Chronic Kidney Disease: Less than 60 mL/min/1.73 square meters End Stage Renal Disease: Less than 15 mL/min/1.73 square meters GFR/1.73 sq M.predicted among non-blacks MDRD (S/P/Bld) [Vol rate/Area] 77 ml/min/1.73sqm Invalid Interpretation Code AO Chemistry S Comment on above: Interpretive Data: GFR Population mean for , Non- Americans Ages 20-29 = 116 mL/min/1.73 sq.m. Ages 30-39 = 107 mL/min/1.73 sq.m. Ages 40-49 = 99 mL/min/1.73 sq.m. Ages 50-59 = 93 mL/min/1.73 sq.m. Ages 60-69 = 85 mL/min/1.73 sq.m. Ages 70+ = 75 mL/min/1.73 sq.m. Chronic Kidney Disease: Less than 60 mL/min/1.73 square meters End Stage Renal Disease: Less than 15 mL/min/1.73 square meters Glucose [Mass/Vol] 106 mg/dL Invalid Interpretation Code 80 - 115 mg/dL AO ADM SS Hematocrit (Bld) [Volume fraction] 44.3 % Invalid Interpretation Code 42.0 - 52.0 % AO Workflow SS Hemoglobin (Bld) [Mass/Vol] 15.7 G/dL Invalid Interpretation Code 14.0 - 18.0 G/dL AO Workflow SS Lymphocyte, Absolute 3.2 103/mcL Invalid Interpretation Code 0.8 - 3.9 10^3/mcL AO Workflow SS Lymphocytes/100 WBC (Bld) 32.9 % Invalid Interpretation Code 10.0 - 50.0 % AO Workflow SS MCH (RBC) [Entitic mass] 30.3 pg Invalid Interpretation Code 27.0 - 31.2 pg AO Workflow SS MCHC 35.6 G/dL Invalid Interpretation Code 31.8 - 35.4 G/dL AO Workflow SS MCV (RBC) [Entitic vol] 85.3 fL Invalid Interpretation Code 80.0 - 94.0 fL AO Workflow SS Monocyte, Absolute 1.1 103/mcL Invalid Interpretation Code 0.2 - 1.0 10^3/mcL AO Workflow SS Monocytes/100 WBC (Bld) 11.3 % Invalid Interpretation Code 1.7 - 13.0 % AO Workflow SS Neutrophil, Absolute 5.1 103/mcL Invalid Interpretation Code 2.9 - 6.2 10^3/mcL AO Workflow SS Neutrophils/100 WBC (Bld) 51.7 % Invalid Interpretation Code 37.0 - 80.0 % AO Workflow SS Platelet mean volume (Bld) [Entitic vol] 7.6 fL Invalid Interpretation Code 7.4 - 10.4 fL AO Workflow SS Platelets (Bld) [#/Vol] 299 103/mcL Invalid Interpretation Code 130 - 400 10^3/mcL AO Workflow SS Potassium [Moles/Vol] 3.2 mmol/L Invalid Interpretation Code 3.5 - 5.1 mmol/L AO ADM SS RBC (Bld) [#/Vol] 5.19 106/mcL Invalid Interpretation Code 4.04 - 6.13 10^6/mcL AO Workflow SS Sodium [Moles/Vol] 143 mmol/L Invalid Interpretation Code 136 - 145 mmol/L AO ADM SS Urea nitrogen [Mass/Vol] 17 mg/dL Invalid Interpretation Code 7 - 18 mg/dL AO ADM SS Urea nitrogen/Creatinine [Mass ratio] 17 ratio Invalid Interpretation Code 7 - 27 ratio AO ADM SS WBC (Bld) [#/Vol] 9.8 103/mcL Invalid Interpretation Code 4.6 - 10.8 10^3/mcL AO Workflow SS LABORATORYOrdered By: Rosario Hector on 12-17-2022 MRSA DNA JEFFREY+probe Ql (Unsp spec) Not Detected 1 (12/17/22 8:58 AM) Invalid Interpretation Code Not Detected Auto Viro/Sero SS Comment on above: Result Comment: Note s MRSA PCR Int MRSA DNA not detecte d by Real-Time Polymerase Chain Reaction (PCR). A negative result may be due to intermittent colonization. Colonization may vary depending on patient treatment, patient status, or exposure to high-risk environments.As with all PCR based in vitro diagnostic tests, extremely low levels of target below the limit of detection of the assay may be detected, but results may not be reproducible. Invalid Interpretation Code Auto Viro/Sero SS MRSAPCRon 12-17-2022 MRSA (PCR) Not detected Normal Not Detected [facility] ([place]) Comment on above: Result Comment: Note s Performed By: #### A JEWEL, GFR, CBC, ADIFF, BMP #### [address] [address] MRSA PCR Int Normal [facility] ([place]) Comment on above: Result Comment: MRSA DNA not detected by Real-Time Polymerase Chain Reaction (PCR). A negative result may be due to intermittent colonization. Colonization may vary depending on patient treatment, patient status, or exposure to high-risk environments. As with all PCR based in vitro diagnostic tests, extremely low levels of target below the limit of detection of the assay may be detected, but results may not be reproducible. See Below Performed By: #### A JEWEL, GFR, CBC, ADIFF, BMP #### [address] [address] .Auto Diffon 07-11-2022 Basophil, Absolute 0.0 10 3/mcL Normal 0.0-0.2 [facility] ([place]) Comment on above: Performed By: #### A JEWEL, GFR, CBC, ADIFF, BMP #### [address] [address] Basophils/100 WBC (Bld) 0.2 % Normal 0.0-2.5 [facility] ([place]) Comment on above: Performed By: #### A JEWEL, GFR, CBC, ADIFF, BMP #### [address] [address] Eosinophil, Absolute 0.0 10 3/mcL Normal 0.0-0.4 [facility] ([place]) Comment on above: Performed By: #### A JEWEL, GFR, CBC, ADIFF, BMP #### [address] [address] Eosinophils/100 WBC (Bld) 0.2 % Normal 0.0-7.0 [facility] ([place]) Comment on above: Performed By: #### A JEWEL, GFR, CBC, ADIFF, BMP #### [address] [address] Lymphocyte, Absolute 2.2 10 3/mcL Normal 0.8-3.9 [facility] ([place]) Comment on above: Performed By: #### A JEWEL, GFR, CBC, ADIFF, BMP #### [address] [address] Lymphocytes/100 WBC (Bld) 14.3 % Normal 10.0-50.0 [facility] ([place]) Comment on above: Performed By: #### A JEWEL, GFR, CBC, ADIFF, BMP #### [address] [address] Monocyte, Absolute 1.7 10 3/mcL High 0.2-1.0 [facility] ([place]) Comment on above: Performed By: #### A JEWEL, GFR, CBC, ADIFF, BMP #### [address] [address] Monocytes/100 WBC (Bld) 10.8 % Normal 1.7-13.0 Formerly [facility], [facility] ([place]) Comment on above: Performed By: #### A JEWEL, GFR, CBC, ADIFF, BMP #### [address] [address] Neutrophils/100 WBC (Bld) 74.5 % Normal 37.0-80.0 Formerly [facility], [facility]–1983 ([place]) Comment on above: Performed By: #### A JEWEL, GFR, CBC, ADIFF, BMP #### [address] [address] .GFRon 07-11-2022 GFR 111 ml/min/1.73sqm Normal Formerly [facility], [facility] ([place]) Comment on above: Result Comment: GFR Population mean for , Non- Americans Ages 20-29 = 116 mL/min/1.73 sq.m. Ages 30-39 = 107 mL/min/1.73 sq.m. Ages 40-49 = 99 mL/min/1.73 sq.m. Ages 50-59 = 93 mL/min/1.73 sq.m. Ages 60-69 = 85 mL/min/1.73 sq.m. Ages 70+ = 75 mL/min/1.73 sq.m. Chronic Kidney Disease: Less than 60 mL/min/1.73 square meters End Stage Renal Disease: Less than 15 mL/min/1.73 square meters Performed By: #### A JEWEL, GFR, CBC, ADIFF, BMP #### [address] [address] GFR Non- 92 ml/min/1.73sqm Normal [facility]ly [facility], [facility] ([place] Comment on above: Result Comment: GFR Population mean for , Non- Americans Ages 20-29 = 116 mL/min/1.73 sq.m. Ages 30-39 = 107 mL/min/1.73 sq.m. Ages 40-49 = 99 mL/min/1.73 sq.m. Ages 50-59 = 93 mL/min/1.73 sq.m. Ages 60-69 = 85 mL/min/1.73 sq.m. Ages 70+ = 75 mL/min/1.73 sq.m. Chronic Kidney Disease: Less than 60 mL/min/1.73 square meters End Stage Renal Disease: Less than 15 mL/min/1.73 square meters Performed By: #### A JEWEL, GFR, CBC, ADIFF, BMP #### [address] [address] .NEUABSon 07-11-2022 Neutrophil, Absolute 11.8 10 3/mcL High 2.9-6.2 A [facility] ([place]) Comment on above: Performed By: #### A JEWEL, GFR, CBC, ADIFF, BMP #### [address] [address] BMPon 07-11-2022 BUN/Creatinine Ratio 21 ratio Normal 7-27 [facility] ([place]) Comment on above: Performed By: #### A JEWEL, GFR, CBC, ADIFF, BMP #### [address] [address] Calcium [Mass/Vol] 8.7 mg/dL Normal 8.4-10.2 Formerly [facility] ([place]) Comment on above: Performed By: #### A JEWEL, GFR, CBC, ADIFF, BMP #### [address] [address] Chloride [Moles/Vol] 103 mmol/L Normal 98-107 [facility] ([place]) Comment on above: Performed By: #### A JEWEL, GFR, CBC, ADIFF, BMP #### [address] [address] CO2 [Moles/Vol] 27 mmol/L Normal 23-31 [facility], [facility] ([place] Comment on above: Performed By: #### A JEWEL, GFR, CBC, ADIFF, BMP #### [address] [address] Creatinine [Mass/Vol] 0.85 mg/dL Normal 0.70-1.30 [facility] ([place]) Comment on above: Performed By: #### A JEWEL, GFR, CBC, ADIFF, BMP #### [address] [address] Electrolyte Balance 7.0 mEq/L Normal 4.0-15.0 [facility] ([place]) Comment on above: Performed By: #### A JEWEL, GFR, CBC, ADIFF, BMP #### [address] [address] Glucose [Mass/Vol] 127 mg/dL High 80-115 [facility] ([place]) Comment on above: Performed By: #### A JEWEL, GFR, CBC, ADIFF, BMP #### [address] [address] Potassium [Moles/Vol] 3.7 mmol/L Normal 3.5-5.1 [facility] ([place]) Comment on above: Performed By: #### A JEWEL, GFR, CBC, ADIFF, BMP #### [address] [address] Sodium [Moles/Vol] 137 mmol/L Normal 136-145 [facility] ([place]) Comment on above: Performed By: #### A JEWEL, GFR, CBC, ADIFF, BMP #### [address] [address] Urea nitrogen [Mass/Vol] 18 mg/dL Normal 7-18 [facility], [facility] ([place] Comment on above: Performed By: #### A JEWEL, GFR, CBC, ADIFF, BMP #### [address] [address] CBCon 07-11-2022 Erythrocyte distribution width (RBC) [Ratio] 15.2 % High 11.5-14.5 [facility]ly [facility], [facility] ([place] Comment on above: Performed By: #### A JEWEL, GFR, CBC, ADIFF, BMP #### [address] [address] Hematocrit (Bld) [Volume fraction] 34.6 % Low 42.0-52.0 [facility], [facility] ([place] Comment on above: Performed By: #### A JEWEL, GFR, CBC, ADIFF, BMP #### [address] [address] Hgb 11.7 G/dL Low 14.0-18.0 [facility] ([place] Comment on above: Performed By: #### A JEWEL, GFR, CBC, ADIFF, BMP #### [address] [address] MCH (RBC) [Entitic mass] 30.0 pg Normal 27.0-31.2 [facility], [facility] ([place] Comment on above: Performed By: #### A JEWEL, GFR, CBC, ADIFF, BMP #### [address] [address] MCHC 33.8 G/dL Normal 31.8-35.4 [facility] ([place] Comment on above: Performed By: #### A JEWEL, GFR, CBC, ADIFF, BMP #### [address] [address] MCV (RBC) [Entitic vol] 88.9 fL Normal 80.0-94.0 [facility] ([place] Comment on above: Performed By: #### A JEWEL, GFR, CBC, ADIFF, BMP #### [address] [address] Platelet 272 10 3/mcL Normal 130-400 [facility], [facility] ([place] Comment on above: Performed By: #### A JEWEL, GFR, CBC, ADIFF, BMP #### [address] [address] Platelet mean volume (Bld) [Entitic vol] 7.6 fL Normal 7.4-10.4 [facility], [facility] ([place] Comment on above: Performed By: #### A JEWEL, GFR, CBC, ADIFF, BMP #### [address] [address] RBC 3.89 10 6/mcL Low 4.04-6.13 [facility], [facility] ([place] Comment on above: Performed By: #### A JEWEL, GFR, CBC, ADIFF, BMP #### [address] [address] [place], [place] [address] WBC 15.8 10 3/mcL High 4.6-10.8 [facility], [facility] ([place] Comment on above: Performed By: #### A JEWEL, GFR, CBC, ADIFF, BMP #### [address] [place], [place] [address] LABORATORYOrdered By: Dinoar Reed on 07-11-2022 Basophil, Absolute 0.0 103/mcL Invalid Interpretation Code 0.0 - 0.2 10^3/mcL AO Workflow SS Basophils/100 WBC (Bld) 0.2 % Invalid Interpretation Code 0.0 - 2.5 % AO Workflow SS Eosinophil, Absolute 0.0 103/mcL Invalid Interpretation Code 0.0 - 0.4 10^3/mcL AO Workflow SS Eosinophils/100 WBC (Bld) 0.2 % Invalid Interpretation Code 0.0 - 7.0 % AO Workflow SS Erythrocyte distribution width (RBC) [Ratio] 15.2 % Invalid Interpretation Code 11.5 - 14.5 % AO Workflow SS Hematocrit (Bld) [Volume fraction] 34.6 % Invalid Interpretation Code 42.0 - 52.0 % AO Workflow SS Hemoglobin (Bld) [Mass/Vol] 11.7 G/dL Invalid Interpretation Code 14.0 - 18.0 G/dL AO Workflow SS Lymphocyte, Absolute 2.2 103/mcL Invalid Interpretation Code 0.8 - 3.9 10^3/mcL AO Workflow SS Lymphocytes/100 WBC (Bld) 14.3 % Invalid Interpretation Code 10.0 - 50.0 % AO Workflow SS MCH (RBC) [Entitic mass] 30.0 pg Invalid Interpretation Code 27.0 - 31.2 pg AO Workflow SS MCHC 33.8 G/dL Invalid Interpretation Code 31.8 - 35.4 G/dL AO Workflow SS MCV (RBC) [Entitic vol] 88.9 fL Invalid Interpretation Code 80.0 - 94.0 fL AO Workflow SS Monocyte, Absolute 1.7 103/mcL Invalid Interpretation Code 0.2 - 1.0 10^3/mcL AO Workflow SS Monocytes/100 WBC (Bld) 10.8 % Invalid Interpretation Code 1.7 - 13.0 % AO Workflow SS Neutrophil, Absolute 11.8 103/mcL Invalid Interpretation Code 2.9 - 6.2 10^3/mcL AO Workflow SS Neutrophils/100 WBC (Bld) 74.5 % Invalid Interpretation Code 37.0 - 80.0 % AO Workflow SS Platelet mean volume (Bld) [Entitic vol] 7.6 fL Invalid Interpretation Code 7.4 - 10.4 fL AO Workflow SS Platelets (Bld) [#/Vol] 272 103/mcL Invalid Interpretation Code 130 - 400 10^3/mcL AO Workflow SS RBC (Bld) [#/Vol] 3.89 106/mcL Invalid Interpretation Code 4.04 - 6.13 10^6/mcL AO Workflow SS WBC (Bld) [#/Vol] 15.8 103/mcL Invalid Interpretation Code 4.6 - 10.8 10^3/mcL AO Workflow SS LABORATORYOrdered By: SYSTEM SYSTEM on 07-11-2022 Calcium [Mass/Vol] 8.7 mg/dL Invalid Interpretation Code 8.4 - 10.2 mg/dL AO ADM SS Chloride [Moles/Vol] 103 mmol/L Invalid Interpretation Code 98 - 107 mmol/L AO ADM SS CO2 [Moles/Vol] 27 mmol/L Invalid Interpretation Code 23 - 31 mmol/L AO ADM SS Creatinine [Mass/Vol] 0.85 mg/dL Invalid Interpretation Code 0.70 - 1.30 mg/dL AO ADM SS Electrolyte Balance 7.0 mEq/L Invalid Interpretation Code 4.0 - 15.0 mEq/L AO ADM SS GFR 111 ml/min/1.73sqm Invalid Interpretation Code AO Chemistry S GFR Non- 92 ml/min/1.73sqm Invalid Interpretation Code AO Chemistry S Glucose [Mass/Vol] 127 mg/dL Invalid Interpretation Code 80 - 115 mg/dL AO ADM SS Potassium [Moles/Vol] 3.7 mmol/L Invalid Interpretation Code 3.5 - 5.1 mmol/L AO ADM SS Sodium [Moles/Vol] 137 mmol/L Invalid Interpretation Code 136 - 145 mmol/L AO ADM SS Urea nitrogen [Mass/Vol] 18 mg/dL Invalid Interpretation Code 7 - 18 mg/dL AO ADM SS Urea nitrogen/Creatinine [Mass ratio] 21 ratio Invalid Interpretation Code 7 - 27 ratio AO ADM SS Gel ABOon 07-10-2022 ABO/Rh Interp Positive Invalid Interpretation Code [facility], [facility] ([place]) Comment on above: Performed By: #### A JEWEL, GFR, CBC, ADIFF, BMP #### [address] [place], [place] [address] Gel ABSon 07-10-2022 Antibody Screen Gel Negative Normal [facility] ([place]) Comment on above: Performed By: #### A JEWEL, GFR, CBC, ADIFF, BMP #### [address] [place], [place] [address] LABORATORYOrdered By: Jeannette Sampson on 07-10-2022 ABO/Rh Interp Positive Invalid Interpretation Code AO BB SS Antibody Screen Gel Negative ABSC (07/10/22 6:21 AM) Invalid Interpretation Code AO BB SS XR KNEE 1 OR 2 VIEWS LEFTon 07-10-2022 XR KNEE 1 OR 2 VIEWS LEFT ORIGINAL EXAMINATION: TWO XRAY VIEWS OF THE LEFT KNEE 07/10/2022 9:11 am COMPARISON: CT of the left knee on 07/02/2022. HISTORY: ORDERING SYSTEM PROVIDED HISTORY: Reason for Exam: Status Post Arthroplasty FINDINGS: Patient has undergone left total knee arthroplasty. Prosthetic components are in satisfactory position. Alignment of tibiofemoral and patellofemoral joints is normal. Postoperative intra-articular and soft tissue gas is present. IMPRESSION: Satisfactory postoperative appearance of left total knee arthroplasty. 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 Pt has RALPH and HTN and should be monitiored closely during and after surgery. Chief Complaint pt is here for preop clearance and HTN management. BN//AMD History of Present IllnessPt is here for preop clearance for a left total knee replacement. He has had preop clearance with an EKG, CXR and blood work at [facility] but noneof it is available to myself today and I have not reviewed it. Review of Systems Pt denies fever, chills, malaise or headache. Pt denies SOB, cough or HAWKINS. Pt denies Chest pains pressures or palpitations. Pt denies Nausea, vomiting, constipation, or diarrhea. Pt denies swelling of hands feet ankles or joints. Patient complains of significant knee pains bilaterally and low back pain. He denies blood in stool, or urine. He has no excessive bruising. He denies feeling light headed or dizzy. Active Problems Acute right-sided low back pain with right-sided sciatica (724.2,724.3) (M54.41) Arthritis of both knees (716.96) (M17.0) Asthma (493.90) (J45.909) BMI 45.0-49.9, adult (V85.42) (Z68.42) Cellulitis of left lower extremity (682.6) (L03.116) Excessive daytime sleepiness (780.54) (G47.19) History of colon polyps (V12.72) (Z86.010) Hypertension (401.9) (I10) Knee osteoarthritis (715.36) (M17.9) Low back pain (724.2) (M54.50) Lumbar stenosis (724.02) (M48.061) Malignant melanoma (172.9) (C43.9) romoved from right cheek approx 2007 Need for influenza vaccination (V04.81) (Z23) Nicotine dependence (305.1) (F17.200) Obesity (278.00) (E66.9) RALPH (obstructive sleep apnea) (327.23) (G47.33) Osteoarthritis of both hands, unspecified osteoarthritis type (715.94) (M19.041,M19.042) Osteoarthritis of both knees, unspecified osteoarthritis type (715.96) (M17.0) Scrotal abscess (608.4) (N49.2) Vitamin D deficiency (268.9) (E55.9) Past Medical History History of Acute pain of left knee (719.46) (M25.562) Resolved Date: 23 May 2020 History of Asymptomatic microscopic hematuria (599.72) (R31.21) Resolved Date: 23 May 2020 History of Chronic bilateral low back pain without sciatica (724.2,338.29) (M54.50,G89.29) Resolved Date: 23 May 2020 History of CRP elevated (790.95) (R79.82) Resolved Date: 23 May 2020 History of Dependent edema (782.3) (R60.9) Resolved Date: 23 May 2020 History of athlete's foot (V12.09) (Z86.19) Resolved Date: 23 May 2020 History of leukocytosis (V12.3) (Z86.2) Resolved Date: 23 May 2020 History of obesity (V12.29) (Z86.39) Resolved Date: 23 May 2020 History of scrotal mass (V13.89) (Z87.438) Resolved Date: 23 May 2020 History of Positive colorectal cancer screening using Cologuard test (787.7) (R19.5) Resolved Date: 23 May 2020 History of Primary osteoarthritis of left knee (715.16) (M17.12) Resolved Date: 23 May 2020 History of Primary osteoarthritis of right knee (715.16) (M17.11) Resolved Date: 23 May 2020 History of Testicular abscess (604.0) (N45.4) Resolved Date: 23 May 2020 Surgical History History of Hernia Repair bilat repaired after Social History Current every day smoker (305.1) (F17.200) 1/4 PPD now but peak was 1.5ppd smoked for 48 years Daily caffeinated coffee consumption 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, 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 [employer] Occasional alcohol use rare beer with Dad Single Allergies No Known Allergies Recorded By: Nimo Joseph; 03/26/2017 1:49:47 PM Current Meds Medication NameInstructionReason Albuterol Sulfate HFA 108 (90 Base) MCG/ACT Inhalation Aerosol SolutionINHALE 2 PUFFS EVERY 4 HOURS NEEDEDAsthma Multi Vitamin Daily Oral TabletTAKE 1 TABLET DAILY.Health Maintenance hydroCHLOROthiazide 50 MG Oral TabletTake 1 tablet dailyPMH: Dependent edema, Hypertension Vitamin D 50 MCG (1999) Oral CapsuleTAKE 1 CAPSULE DailyVitamin D deficiency Amoxicillin-Pot Clavulanate 500-125 MG Oral Tablettake 1 tablet by mouth every 8 hours for 7 days Aspirin 325 MG Oral Tablet Meloxicam 7.5 MG Oral Tablettake 1 tablet by mouth twice a day Vitals Vital Signs Recorded: [id number] 02:58PMRecorded: [id number] 02:45PM [id number] Heart Rate91 Height5 ft 10 in Uvyopk668 lb 7 oz BMI Lyvjlkyema82.24 kg/m2 BSA Calculated2.41 PHQ-2 #1. Over the last 2 weeks have you felt down, depressed or hopeless? (If yes, answer PHQ-9 below)No PHQ-2 #2. Over the last 2 weeks have you felt little interest or pleasure in doing things? (If yes, answer PHQ-9 below)Yes O2 [id number], (more content not included)... Normal [facility] PHQ-2 VITALSon 07-05-2022 Adult depression screening assessment No [facility] Work Phone: Adult depression screening assessment Yes [facility] Work Phone: .Auto Diffon 07-02-2022 Basophil, Absolute 0.1 10 3/mcL Normal 0.0-0.2 [facility] ([place]) Comment on above: Performed By: #### A JEWEL, GFR, CBC, ADIFF, BMP #### [address] [address] Basophils/100 WBC (Bld) 1.1 % Normal 0.0-2.5 [facility]ly [facility], [facility] ([place]) Comment on above: Performed By: #### A JEWEL, GFR, CBC, ADIFF, BMP #### [address] [address] Eosinophil, Absolute 0.2 10 3/mcL Normal 0.0-0.4 [facility] ([place]) Comment on above: Performed By: #### A JEWEL, GFR, CBC, ADIFF, BMP #### [address] [address] Eosinophils/100 WBC (Bld) 1.5 % Normal 0.0-7.0 [facility] ([place]) Comment on above: Performed By: #### A JEWEL, GFR, CBC, ADIFF, BMP #### [address] [address] Lymphocyte, Absolute 2.8 10 3/mcL Normal 0.8-3.9 [facility] ([place]) Comment on above: Performed By: #### A JEWEL, GFR, CBC, ADIFF, BMP #### [address] [address] Lymphocytes/100 WBC (Bld) 26.7 % Normal 10.0-50.0 [facility], [facility] ([place]) Comment on above: Performed By: #### A JEWEL, GFR, CBC, ADIFF, BMP #### [address] [address] Monocyte, Absolute 1.0 10 3/mcL Normal 0.2-1.0 [facility] ([place]) Comment on above: Performed By: #### A JEWEL, GFR, CBC, ADIFF, BMP #### [address] [address] Monocytes/100 WBC (Bld) 9.6 % Normal 1.7-13.0 [facility] ([place] Comment on above: Performed By: #### A JEWEL, GFR, CBC, ADIFF, BMP #### [address] [address] Neutrophils/100 WBC (Bld) 61.1 % Normal 37.0-80.0 [facility] ([place]) Comment on above: Performed By: #### A JEWEL, GFR, CBC, ADIFF, BMP #### [address] [address] .GFRon 07-02-2022 GFR 127 ml/min/1.73sqm Normal [facility] ([place]) Comment on above: Result Comment: GFR Population mean for , Non- Americans Ages 20-29 = 116 mL/min/1.73 sq.m. Ages 30-39 = 107 mL/min/1.73 sq.m. Ages 40-49 = 99 mL/min/1.73 sq.m. Ages 50-59 = 93 mL/min/1.73 sq.m. Ages 60-69 = 85 mL/min/1.73 sq.m. Ages 70+ = 75 mL/min/1.73 sq.m. Chronic Kidney Disease: Less than 60 mL/min/1.73 square meters End Stage Renal Disease: Less than 15 mL/min/1.73 square meters Performed By: #### A JEWEL, GFR, CBC, ADIFF, BMP #### [address] [address] GFR Non- 105 ml/min/1.73sqm Normal [facility] ([place] Comment on above: Result Comment: GFR Population mean for , Non- Americans Ages 20-29 = 116 mL/min/1.73 sq.m. Ages 30-39 = 107 mL/min/1.73 sq.m. Ages 40-49 = 99 mL/min/1.73 sq.m. Ages 50-59 = 93 mL/min/1.73 sq.m. Ages 60-69 = 85 mL/min/1.73 sq.m. Ages 70+ = 75 mL/min/1.73 sq.m. Chronic Kidney Disease: Less than 60 mL/min/1.73 square meters End Stage Renal Disease: Less than 15 mL/min/1.73 square meters Performed By: #### A JEWEL, GFR, CBC, ADIFF, BMP #### [address] [address] .NEUABSon 07-02-2022 Neutrophil, Absolute 6.4 10 3/mcL High 2.9-6.2 [facility] ([place]) Comment on above: Performed By: #### A JEWEL, GFR, CBC, ADIFF, BMP #### [address] [address] A1Con 07-02-2022 HbA1c (Bld) [Mass fraction] 5.8 % Normal 4.3-6.4 [facility] ([place] Comment on above: Performed By: #### A JEWEL, GFR, CBC, ADIFF, BMP #### [address] [address] ALBon 07-02-2022 Albumin Level 3.9 G/dL Normal 3.4-4.8 [facility] ([place] Comment on above: Performed By: #### A JEWEL, GFR, CBC, ADIFF, BMP #### [address] [address] [facility] BUN/Creatinine Ratio 25 ratio Normal 7-27 [facility] ([place]) Comment on above: Performed By: #### A JEWEL, GFR, CBC, ADIFF, BMP #### [address] [address] Calcium [Mass/Vol] 9.4 mg/dL Normal 8.4-10.2 [facility] ([place]) Comment on above: Performed By: #### A JEWEL, GFR, CBC, ADIFF, BMP #### [address] [address] Chloride [Moles/Vol] 103 mmol/L Normal 98-107 [facility] ([place]) Comment on above: Performed By: #### A JEWEL, GFR, CBC, ADIFF, BMP #### [address] [address] CO2 [Moles/Vol] 27 mmol/L Normal 23-31 [facility] ([place] Comment on above: Performed By: #### A JEWEL, GFR, CBC, ADIFF, BMP #### [address] [address] Creatinine [Mass/Vol] 0.76 mg/dL Normal 0.70-1.30 [facility] ([place]) Comment on above: Performed By: #### A JEWEL, GFR, CBC, ADIFF, BMP #### [address] [address] Electrolyte Balance 11.0 mEq/L Normal 4.0-15.0 [facility] ([place]) Comment on above: Performed By: #### A JEWEL, GFR, CBC, ADIFF, BMP #### [address] [address] Glucose [Mass/Vol] 97 mg/dL Normal 80-115 [facility] ([place]) Comment on above: Performed By: #### A JEWEL, GFR, CBC, ADIFF, BMP #### [address] [address] Potassium [Moles/Vol] 3.8 mmol/L Normal 3.5-5.1 [facility] ([place]) Comment on above: Performed By: #### A JEWEL, GFR, CBC, ADIFF, BMP #### [address] [address] Sodium [Moles/Vol] 141 mmol/L Normal 136-145 [facility] ([place]) Comment on above: Performed By: #### A JEWEL, GFR, CBC, ADIFF, BMP #### [address] [address] Urea nitrogen [Mass/Vol] 19 mg/dL High 7-18 [facility] ([place] Comment on above: Performed By: #### A JEWEL, GFR, CBC, ADIFF, BMP #### [address] [address] CBCon 07-02-2022 Erythrocyte distribution width (RBC) [Ratio] 15.2 % High 11.5-14.5 [facility] ([place] Comment on above: Order Comment: Pre-A dmission Testing Performed By: #### A JEWEL, GFR, CBC, ADIFF, BMP #### [address] [address] Hematocrit (Bld) [Volume fraction] 41.7 % Low 42.0-52.0 [facility] ([place] Comment on above: Order Comment: Pre-A dmission Testing Performed By: #### A JEWEL, GFR, CBC, ADIFF, BMP #### [address] [address] Hgb 14.6 G/dL Normal 14.0-18.0 [facility] ([place] Comment on above: Order Comment: Pre-A dmission Testing Performed By: #### A JEWEL, GFR, CBC, ADIFF, BMP #### [address] [address] MCH (RBC) [Entitic mass] 30.8 pg Normal 27.0-31.2 [facility] ([place] Comment on above: Order Comment: Pre-A dmission Testing Performed By: #### A JEWEL, GFR, CBC, ADIFF, BMP #### [address] [address] MCHC 35.1 G/dL Normal 31.8-35.4 [facility] ([place] Comment on above: Order Comment: Pre-A dmission Testing Performed By: #### A JEWEL, GFR, CBC, ADIFF, BMP #### [address] [address] MCV (RBC) [Entitic vol] 87.7 fL Normal 80.0-94.0 [facility] ([place] Comment on above: Order Comment: Pre-A dmission Testing Performed By: #### A JEWEL, GFR, CBC, ADIFF, BMP #### [address] [address] Platelet 285 10 3/mcL Normal 130-400 [facility] ([place] Comment on above: Order Comment: Pre-A dmission Testing Performed By: #### A JEWEL, GFR, CBC, ADIFF, BMP #### [address] [address] Platelet mean volume (Bld) [Entitic vol] 7.6 fL Normal 7.4-10.4 [facility] ([place] Comment on above: Order Comment: Pre-A dmission Testing Performed By: #### A JEWEL, GFR, CBC, ADIFF, BMP #### [address] [address] RBC 4.75 10 6/mcL Normal 4.04-6.13 [facility] ([place] Comment on above: Order Comment: Pre-A dmission Testing Performed By: #### A JEWEL, GFR, CBC, ADIFF, BMP #### [facility] [address] [place], [place] [address] WBC 10.4 10 3/mcL Normal 4.6-10.8 [facility] ([place] Comment on above: Order Comment: Pre-A dmission Testing Performed By: #### A JEWEL, GFR, CBC, ADIFF, BMP #### [address] [place], [place] [address] CT KNEE W/O CONTRAST LEFTon 07-02-2022 CT KNEE W/O CONTRAST LEFT ORIGINAL EXAMINATION: CT OF THE LEFT KNEE WITHOUT CONTRAST 07/02/2022 11:28 am TECHNIQUE: CT of the left knee was performed without the administration of intravenous contrast. Multiplanar reformatted images are provided for review. Automated exposure control, iterative reconstruction, and/or weight based adjustment of the mA/kV was utilized to reduce the radiation dose to as low as reasonably achievable. COMPARISON: None. HISTORY ORDERING SYSTEM PROVIDED HISTORY: Reason for Exam: M17.12 - UNILATERAL PRIMARY OSTEOARTHRITIS, LEFT KNEE FINDINGS: Survey images of the left hip demonstrate joint space loss. Minimal degenerative changes are seen in the knee. [id number] arthropathy is identified in the medial tibiofemoral compartment. Tricompartmental degenerative spurs noted. There are calcified intra-articular bodies. A small to moderate joint effusion is identified. A small Hodge's cyst identified. Survey images of the left ankle demonstrate degenerative changes in the ankle/hindfoot. No suspicious findings identified in the soft tissues. Atherosclerotic vascular calcifications seen. IMPRESSION: Tricompartmental degenerative changes. There are calcified loose intra-articular bodies Moderate joint effusion in the knee. Hodge's cyst Degenerative changes of the visualized hip and ankle Interpreted by: Garrick Duong MD Preliminary Report By: Garrick Duong MD Electronically signed By Garrick Duong MD Dictated Date: 07/02/2022 1:28:07 PM Prelim Date: 07/02/2022 1:33:58 PM Sign Date: 07/02/2022 1:33:58 PM Ordering Provider: GRICELDA Yepez Formerly [facility], [facility] ([place]) Gel ABOon 07-02-2022 ABO/Rh Interp Positive Invalid Interpretation Code [facility]) Comment on above: Performed By: #### A JEWEL, GFR, CBC, ADIFF, BMP #### [place] [id number] [place], [place] [address] Gel ABSon 07-02-2022 Antibody Screen Gel Negative Normal [facility] ([place]) Comment on above: Performed By: #### A JEWEL, GFR, CBC, ADIFF, BMP #### [address] [place], [place] [address] LABORATORYOrdered By: Jenny Carrington on 07-02-2022 ABO/Rh Interp Positive Invalid Interpretation Code AO BB SS Antibody Screen Gel Negative ABSC (07/02/22 10:38 AM) Invalid Interpretation Code AO BB SS Basophil, Absolute 0.1 103/mcL Invalid Interpretation Code 0.0 - 0.2 10^3/mcL AO Workflow SS Basophils/100 WBC (Bld) 1.1 % Invalid Interpretation Code 0.0 - 2.5 % AO Workflow SS Eosinophil, Absolute 0.2 103/mcL Invalid Interpretation Code 0.0 - 0.4 10^3/mcL AO Workflow SS Eosinophils/100 WBC (Bld) 1.5 % Invalid Interpretation Code 0.0 - 7.0 % AO Workflow SS Erythrocyte distribution width (RBC) [Ratio] 15.2 % Invalid Interpretation Code 11.5 - 14.5 % AO Workflow SS Hematocrit (Bld) [Volume fraction] 41.7 % Invalid Interpretation Code 42.0 - 52.0 % AO Workflow SS Hemoglobin (Bld) [Mass/Vol] 14.6 G/dL Invalid Interpretation Code 14.0 - 18.0 G/dL AO Workflow SS Lymphocyte, Absolute 2.8 103/mcL Invalid Interpretation Code 0.8 - 3.9 10^3/mcL AO Workflow SS Lymphocytes/100 WBC (Bld) 26.7 % Invalid Interpretation Code 10.0 - 50.0 % AO Workflow SS MCH (RBC) [Entitic mass] 30.8 pg Invalid Interpretation Code 27.0 - 31.2 pg AO Workflow SS MCHC 35.1 G/dL Invalid Interpretation Code 31.8 - 35.4 G/dL AO Workflow SS MCV (RBC) [Entitic vol] 87.7 fL Invalid Interpretation Code 80.0 - 94.0 fL AO Workflow SS Monocyte, Absolute 1.0 103/mcL Invalid Interpretation Code 0.2 - 1.0 10^3/mcL AO Workflow SS Monocytes/100 WBC (Bld) 9.6 % Invalid Interpretation Code 1.7 - 13.0 % AO Workflow SS Neutrophil, Absolute 6.4 103/mcL Invalid Interpretation Code 2.9 - 6.2 10^3/mcL AO Workflow SS Neutrophils/100 WBC (Bld) 61.1 % Invalid Interpretation Code 37.0 - 80.0 % AO Workflow SS Platelet mean volume (Bld) [Entitic vol] 7.6 fL Invalid Interpretation Code 7.4 - 10.4 fL AO Workflow SS Platelets (Bld) [#/Vol] 285 103/mcL Invalid Interpretation Code 130 - 400 10^3/mcL AO Workflow SS RBC (Bld) [#/Vol] 4.75 106/mcL Invalid Interpretation Code 4.04 - 6.13 10^6/mcL AO Workflow SS WBC (Bld) [#/Vol] 10.4 103/mcL Invalid Interpretation Code 4.6 - 10.8 10^3/mcL AO Workflow SS LABORATORYOrdered By: SYSTEM SYSTEM on 07-02-2022 Albumin BCP dye [Mass/Vol] 3.9 G/dL Invalid Interpretation Code 3.4 - 4.8 G/dL AO ADM SS Calcium [Mass/Vol] 9.4 mg/dL Invalid Interpretation Code 8.4 - 10.2 mg/dL AO ADM SS Chloride [Moles/Vol] 103 mmol/L Invalid Interpretation Code 98 - 107 mmol/L AO ADM SS CO2 [Moles/Vol] 27 mmol/L Invalid Interpretation Code 23 - 31 mmol/L AO ADM SS Creatinine [Mass/Vol] 0.76 mg/dL Invalid Interpretation Code 0.70 - 1.30 mg/dL AO ADM SS Electrolyte Balance 11.0 mEq/L Invalid Interpretation Code 4.0 - 15.0 mEq/L AO ADM SS GFR 127 ml/min/1.73sqm Invalid Interpretation Code AO Chemistry S GFR Non- 105 ml/min/1.73sqm Invalid Interpretation Code AO Chemistry S Glucose [Mass/Vol] 97 mg/dL Invalid Interpretation Code 80 - 115 mg/dL AO ADM SS HbA1c (Bld) [Mass fraction] 5.8 % Invalid Interpretation Code 4.3 - 6.4 % AO ADM SS Potassium [Moles/Vol] 3.8 mmol/L Invalid Interpretation Code 3.5 - 5.1 mmol/L AO ADM SS Sodium [Moles/Vol] 141 mmol/L Invalid Interpretation Code 136 - 145 mmol/L AO ADM SS Urea nitrogen [Mass/Vol] 19 mg/dL Invalid Interpretation Code 7 - 18 mg/dL AO ADM SS Urea nitrogen/Creatinine [Mass ratio] 25 ratio Invalid Interpretation Code 7 - 27 ratio AO ADM SS XR CHEST 2 VIEWSon 3 XR CHEST 2 VIEWS ORIGINAL EXAMINATION: TWO XRAY VIEWS OF THE CHEST 05/29/2022 10:19 am COMPARISON: Chest x-ray on 09/10/2017 HISTORY: ORDERING SYSTEM PROVIDED HISTORY: Reason for Exam: encounter for preprocedural respiratory exam FINDINGS: The heart size is at the upper limits of normal. Small hiatal hernia is present. The lungs are hyperexpanded. No acute lung infiltrate or edema is present. There is no pleural fluid or pneumothorax. The skeletal structures are unremarkable. IMPRESSION: Small hiatal hernia. Chronic obstructive pulmonary disease. No acute findings. Interpreted by: Shyam Canales MD Preliminary Report By: Shyam Canales MD Electronically signed By Shyam Canales MD Dictated Date: 05/31/2022 7:22:17 AM Prelim Date: 05/31/2022 7:23:13 AM Sign Date: 05/31/2022 7:23:13 AM Ordering Provider: ELISEO Yepez Formerly [facility], [facility] ([place]) .Auto Diffon 05-29-2022 Basophil, Absolute 0.2 10 3/mcL Normal 0.0-0.2 [facility] ([place]) Comment on above: Performed By: #### A JEWEL, GFR, CBC, ADIFF, BMP #### [address] [address] Basophils/100 WBC (Bld) 2.0 % Normal 0.0-2.5 [facility], [facility] ([place]) Comment on above: Performed By: #### A JEWEL, GFR, CBC, ADIFF, BMP #### [address] [address] Eosinophil, Absolute 0.3 10 3/mcL Normal 0.0-0.4 [facility] ([place]) Comment on above: Performed By: #### A JEWEL, GFR, CBC, ADIFF, BMP #### [address] [address] Eosinophils/100 WBC (Bld) 3.1 % Normal 0.0-7.0 [facility] ([place]) Comment on above: Performed By: #### A JEWEL, GFR, CBC, ADIFF, BMP #### [address] [address] Lymphocyte, Absolute 3.0 10 3/mcL Normal 0.8-3.9 [facility] ([place]) Comment on above: Performed By: #### A JEWEL, GFR, CBC, ADIFF, BMP #### [address] [address] Lymphocytes/100 WBC (Bld) 30.0 % Normal 10.0-50.0 [facility] ([place]) Comment on above: Performed By: #### A JEWEL, GFR, CBC, ADIFF, BMP #### [address] [address] Monocyte, Absolute 1.1 10 3/mcL High 0.2-1.0 [facility] ([place]) Comment on above: Performed By: #### A JEWEL, GFR, CBC, ADIFF, BMP #### [address] [address] Monocytes/100 WBC (Bld) 10.4 % Normal 1.7-13.0 [facility] ([place]) Comment on above: Performed By: #### A JEWEL, GFR, CBC, ADIFF, BMP #### [address] [address] Neutrophils/100 WBC (Bld) 54.5 % Normal 37.0-80.0 [facility] ([place]) Comment on above: Performed By: #### A JEWEL, GFR, CBC, ADIFF, BMP #### [address] [address] .GFRon 05-29-2022 GFR 106 ml/min/1.73sqm Normal [facility] ([place]) Comment on above: Result Comment: GFR Population mean for , Non- Americans Ages 20-29 = 116 mL/min/1.73 sq.m. Ages 30-39 = 107 mL/min/1.73 sq.m. Ages 40-49 = 99 mL/min/1.73 sq.m. Ages 50-59 = 93 mL/min/1.73 sq.m. Ages 60-69 = 85 mL/min/1.73 sq.m. Ages 70+ = 75 mL/min/1.73 sq.m. Chronic Kidney Disease: Less than 60 mL/min/1.73 square meters End Stage Renal Disease: Less than 15 mL/min/1.73 square meters Performed By: #### A JEWEL, GFR, CBC, ADIFF, BMP #### [address] [address] GFR Non- 87 ml/min/1.73sqm Normal [facility] ([place]) Comment on above: Result Comment: GFR Population mean for , Non- Americans Ages 20-29 = 116 mL/min/1.73 sq.m. Ages 30-39 = 107 mL/min/1.73 sq.m. Ages 40-49 = 99 mL/min/1.73 sq.m. Ages 50-59 = 93 mL/min/1.73 sq.m. Ages 60-69 = 85 mL/min/1.73 sq.m. Ages 70+ = 75 mL/min/1.73 sq.m. Chronic Kidney Disease: Less than 60 mL/min/1.73 square meters End Stage Renal Disease: Less than 15 mL/min/1.73 square meters Performed By: #### A JEWEL, GFR, CBC, ADIFF, BMP #### [address] [address] .NEUABSon 05-29-2022 Neutrophil, Absolute 5.5 10 3/mcL Normal 2.9-6.2 [facility] ([place]) Comment on above: Performed By: #### A JEWEL, GFR, CBC, ADIFF, BMP #### [address] [address] APTTon 05-29-2022 aPTT Coag (Bld) [Time] 32.1 s Normal 24.1-34.9 [facility] ([place]) Comment on above: Result Comment: For Heparin anticoagulation therapy, the recommended therapeutic range is: 46.2-75.9 seconds (1.5 - 2.5 the normal plasma mean). Patients on heparin therapy may have an extreme result. Performed By: #### A JEWEL, GFR, CBC, ADIFF, BMP #### [address] [address] Heparin dose (APTT) Unknown Normal [facility] ([place]) Comment on above: Performed By: #### A JEWEL, GFR, CBC, ADIFF, BMP #### [address] [address] BMPon 05-29-2022 BUN/Creatinine Ratio 22 ratio Normal 7-27 [facility] ([place]) Comment on above: Performed By: #### B MP, CBC, ANEU, ADIFF, GFR, PRO, APTT #### [address] [address] Calcium [Mass/Vol] 9.8 mg/dL Normal 8.4-10.2 [facility] ([place]) Comment on above: Performed By: #### B MP, CBC, ANEU, ADIFF, GFR, PRO, APTT #### [address] [address] Chloride [Moles/Vol] 103 mmol/L Normal 98-107 [facility] ([place]) Comment on above: Performed By: #### B MP, CBC, ANEU, ADIFF, GFR, PRO, APTT #### [address] [address] CO2 [Moles/Vol] 28 mmol/L Normal 23-31 [facility] ([place]) Comment on above: Performed By: #### B MP, CBC, ANEU, ADIFF, GFR, PRO, APTT #### [address] [address] Creatinine [Mass/Vol] 0.89 mg/dL Normal 0.70-1.30 [facility] ([place]) Comment on above: Performed By: #### B MP, CBC, ANEU, ADIFF, GFR, PRO, APTT #### [address] [address] Electrolyte Balance 8.0 mEq/L Normal 4.0-15.0 [facility] ([place]) Comment on above: Performed By: #### B MP, CBC, ANEU, ADIFF, GFR, PRO, APTT #### [address] [address] Glucose [Mass/Vol] 95 mg/dL Normal 80-115 [facility] ([place]) Comment on above: Performed By: #### B MP, CBC, ANEU, ADIFF, GFR, PRO, APTT #### [address] [address] Potassium [Moles/Vol] 3.9 mmol/L Normal 3.5-5.1 [facility] ([place]) Comment on above: Performed By: #### B MP, CBC, ANEU, ADIFF, GFR, PRO, APTT #### [address] [address] Sodium [Moles/Vol] 139 mmol/L Normal 136-145 [facility] ([place]) Comment on above: Performed By: #### B MP, CBC, ANEU, ADIFF, GFR, PRO, APTT #### [address] [address] Urea nitrogen [Mass/Vol] 20 mg/dL High 7-18 [facility] ([place]) Comment on above: Performed By: #### B MP, CBC, ANEU, ADIFF, GFR, PRO, APTT #### [address] [address] CBCon 05-29-2022 Erythrocyte distribution width (RBC) [Ratio] 15.2 % High 11.5-14.5 [facility] ([place]) Comment on above: Performed By: #### A JEWEL, GFR, CBC, ADIFF, BMP #### [address] [address] Hematocrit (Bld) [Volume fraction] 43.3 % Normal 42.0-52.0 [facility] ([place]) Comment on above: Performed By: #### A JEWEL, GFR, CBC, ADIFF, BMP #### [address] [address] Hgb 15.1 G/dL Normal 14.0-18.0 [facility] ([place]) Comment on above: Performed By: #### A JEWEL, GFR, CBC, ADIFF, BMP #### [address] [address] MCH (RBC) [Entitic mass] 30.2 pg Normal 27.0-31.2 [facility] ([place]) Comment on above: Performed By: #### A JEWEL, GFR, CBC, ADIFF, BMP #### [address] [address] MCHC 34.8 G/dL Normal 31.8-35.4 [facility] ([place]) Comment on above: Performed By: #### A JEWEL, GFR, CBC, ADIFF, BMP #### [address] [address] MCV (RBC) [Entitic vol] 87.0 fL Normal 80.0-94.0 [facility] ([place]) Comment on above: Performed By: #### A JEWEL, GFR, CBC, ADIFF, BMP #### [address] [address] Platelet 311 10 3/mcL Normal 130-400 [facility] ([place]) Comment on above: Performed By: #### A JEWEL, GFR, CBC, ADIFF, BMP #### [address] [address] Platelet mean volume (Bld) [Entitic vol] 7.2 fL Low 7.4-10.4 [facility] ([place]) Comment on above: Performed By: #### A JEWEL, GFR, CBC, ADIFF, BMP #### [address] [address] RBC 4.98 10 6/mcL Normal 4.04-6.13 [facility] ([place]) Comment on above: Performed By: #### A JEWEL, GFR, CBC, ADIFF, BMP #### [address] [address] WBC 10.1 10 3/mcL Normal 4.6-10.8 [facility] ([place]) Comment on above: Performed By: #### A JEWEL, GFR, CBC, ADIFF, BMP #### [address] [address] PROon 05-29-2022 INR Coag (PPP) [Relative time] 1.1 {INR} Normal 0.9-1.2 [facility] ([place]) Comment on above: Result Comment: Constantin dard Dose 2.0 - 3.0 High Dose 2.5 - 3.5 The recommended therapeutic range for oral anticoagulant therapy is: LOW RISK: Prophylaxis of venous thrombosis INR: 2.0 - 3.0 Treatment of pulmonary embolism 2.0 - 3.0 Prevention of systemic embolism 2.0 - 3.0 HIGH RISK: Mechanical prosthetic valves 2.5 - 3.5 Performed By: #### A JEWEL, GFR, CBC, ADIFF, BMP #### [address] [address] PT Coag (PPP) [Time] 12.3 s Normal 9.7-13.9 [facility] ([place]) Comment on above: Performed By: #### A JEWEL, GFR, CBC, ADIFF, BMP #### [address] [address] Office Visiton 05-25-2022 Follow-up visit Diagnoses/Problems Arthritis of both knees (716.96) (M17.0) Lumbar stenosis (724.02) (M48.061) Low back pain (724.2) (M54.50) Hypertension (401.9) (I10) Knee osteoarthritis (715.36) (M17.9) Orders Arthritis of both knees Orthopedic - General Referral Evaluation and Treatment Evaluate AND Treat Status: Hold For - Scheduling Requested for: 25May2022 Knee osteoarthritis Orthopedic - General Referral Evaluation and Treatment Evaluate AND Treat Status: Canceled AMA Intake Activity Log Entry by bhavesh mcclure ([email or web address]) on 2022-05-11 12:07 Status Change: To Closed - Unable To Schedule-Patient Will Schedule With Non-[facility] Low back pain, Lumbar stenosis Surgical Spine Referral Evaluation and Treatment Evaluate AND Treat Status: Hold For - Scheduling Requested for: 25May2022 PMH: Dependent edema, Hypertension Renew: hydroCHLOROthiazide 50 MG Oral Tablet; Take 1 tablet daily Patient Discussion/Summary f/u Dr Raines in [place] knee surgery 30 min Provider Impressions 1 spinal stenosis, patient may hold his aspirin 7 days before and after the surgery and is medically cleared with the acknowledgment that I have not seen the EKG chest x-ray or labs. He did have labs for me this week and his CBC and CHEM profile both look good 2. Osteoarthritis of both knees, patient is scheduling surgery sometime in August 3. Hypertension stable 4. Patient had a history of infections in the scrotum and groin but none are active. I did reiterate to the patient that if he has any active infections he should hold up on the surgeries. Patient states understanding but currently is infection free I would like to see the patient back in August before his knee surgeries Chief Complaint pt is here for f/u on labs and HTN management. BN//AMD History of Present IllnessPatient is here for follow-up on hypertension and preop clearance. Patient is scheduled to have a posterior lumbar interbody fusion and decompression of L4-5 on June 14. Patient is later scheduled to have knee replacements in June and August. He believes the June knee replacement will have to be pushed back but is hoping that the September 04 knee replacement can go ahead. Patient will need referrals for both of these surgeons which will be done at [facility]. Dr Gricelda Oliver for his knees and Dr Eliseo Braxton for his spine. Both are at : [facility] [place] [address] fax [phone] Review of Systems Patient has severe chronic low back pain and pain radiating down his leg from a spinal stenosis. He also significant osteoarthritis of both knees with significant pain. He is already seeing Dr. Lau near the orthopedic surgeon for his knees and Dr. Braxton for his back and is already scheduling surgery and needs preop clearance for me. From medical standpoint he is stable they have already ordered a CBC, chest x-ray and EKG so I will not order any tests but will make it clear that I have not reviewed those test prior to his clearance. Pt denies fever, chills, malaise or headache. Pt denies SOB, cough or HAWKINS. Pt denies Chest pains pressures or palpitations. Pt denies Nausea, vomiting, constipation, or diarrhea. Pt denies swelling of hands feet ankles or joints. Patient complains of significant knee pains bilaterally and low back pain. Active Problems Acute right-sided low back pain with right-sided sciatica (724.2,724.3) (M54.41) Arthritis of both knees (716.96) (M17.0) Asthma (493.90) (J45.909) BMI 45.0-49.9, adult (V85.42) (Z68.42) Cellulitis of left lower extremity (682.6) (L03.116) Excessive daytime sleepiness (780.54) (G47.19) History of colon polyps (V12.72) (Z86.010) Hypertension (401.9) (I10) Knee osteoarthritis (715.36) (M17.9) Low back pain (724.2) (M54.50) Malignant melanoma (172.9) (C43.9) romoved from right cheek approx 2006 Need for influenza vaccination (V04.81) (Z23) Nicotine dependence (305.1) (F17.200) Obesity (278.00) (E66.9) RALPH (obstructive sleep apnea) (327.23) (G47.33) Osteoarthritis of both hands, unspecified osteoarthritis type (715.94) (M19.041,M19.042) Osteoarthritis of both knees, unspecified osteoarthritis type (715.96) (M17.0) Scrotal abscess (608.4) (N49.2) Vitamin D deficiency (268.9) (E55.9) Past Medical History History of Acute pain of left knee (719.46) (M25.562) Resolved Date: 23 May 2020 History of Asymptomatic microscopic hematuria (599.72) (R31.21) Resolved Date: 23 May 2020 History of Chronic bilateral low back pain without sciatica (724.2,338.29) (M54.50,G89.29) Resolved Date: 23 May 2020 History of CRP elevated (790.95) (R79.82) Resolved Date: 23 May 2020 History of Dependent edema (782.3) (R60.9) Resolved Date: 23 May 2020 History of athlete's foot (V12.09) (Z86.19) Resolved Date: 23 May 2020 History of leukocytosis (V12.3) (Z86.2) Resolved Date: 23 May 2020 History of obesity (V12.29) (Z86.39) Resolved Date: 23 May 2020 (more content not included)... Normal [employer] Office Visit (Allergy/Immuno logy)on 05-25-2022 Follow-up visit Diagnoses/Problems Assessed RALPH (obstructive sleep apnea) (327.23) (G47.33) Excessive daytime sleepiness (780.54) (G47.19) Hypertension (401.9) (I10) Patient Discussion/Summary The Obstructive sleep apnea is well treated with Auto BiPAP usage and the usage (compliance) of PAP is good. This patient is benefiting from using PAP and it is medically necessary. Recommend continuing the current plan and machine settings. 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 Follow-up in 12 months so we may re-assess you and develop a more supervisor intermediates plan.1 1 Amended By: Martinez hO; May 25 2022 1:09 PM ESTChief Complaint FUV SLEEP. History of Present Illnesspatient presents for follow up of sleep. He has a history of severe sleep apnea with AHI of 56. He was placed on Auto bipap He reports doing well with bipap and is waiting for new supplies. 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 he didn't have obstructive sleep apnea when he was 280lb in the past. Current mask FFM Current [facility] [employer] RALPH chip read:usage 88/90 days usage 7 hours 18 minutes max IPAP 16 CM H2O min EPAP 8 CM H2O pressure support 4cm AHI = 4.7 Mask leak 95th percentile is 10.8 This patient denies any sleepiness while driving or any accidents related to sleepiness. There is no report of nodding at stop lights/signs, crossing center lines, or motor vehicle accidents due to sleepiness. can't sleep right without the PAP fe 2nd - back surgery and then having bilateral knee replacments will be off work x 6 months. He has been in pain. Review of Systems The review of systems is as per the HPI. All other systems have been reviewed and, except as stated, are negative for complaint. Constitutional: no fever, no chills and not feeling tired. Eyes: eyes not red and no itching of the eyes. ENT: no hearing loss, no nosebleeds, no nasal discharge, no sore throat and no hoarseness. Cardiovascular: no chest pain and no palpitations. Respiratory: no shortness of breath, no wheezing, no cough and no shortness of breath during exertion. Gastrointestinal: no abdominal pain, no constipation, no heartburn, no diarrhea and no vomiting. Integumentary: no skin lesions, no itching and no dry skin. Psychiatric: no anxiety and no depression. All other systems have been reviewed and are negative for complaint. *Active Problems Problems Acute right-sided low back pain with right-sided sciatica (724.2,724.3) (M54.41) Asthma (493.90) (J45.909) BMI 45.0-49.9, adult (V85.42) (Z68.42) Cellulitis of left lower extremity (682.6) (L03.116) Excessive daytime sleepiness (780.54) (G47.19) History of colon polyps (V12.72) (Z86.010) Malignant melanoma (172.9) (C43.9) romoved from right cheek approx 2006 Need for influenza vaccination (V04.81) (Z23) Nicotine dependence (305.1) (F17.200) Obesity (278.00) (E66.9) RALPH (obstructive sleep apnea) (327.23) (G47.33) Osteoarthritis of both hands, unspecified osteoarthritis type (715.94) (M19.041,M19.042) Osteoarthritis of both knees, unspecified osteoarthritis type (715.96) (M17.0) Scrotal abscess (608.4) (N49.2) Vitamin D deficiency (268.9) (E55.9) Hypertension (401.9) (I10) Arthritis of both knees (716.96) (M17.0) Knee osteoarthritis (715.36) (M17.9) Low back pain (724.2) (M54.50) Past Medical History Problems History of Acute pain of left knee (719.46) (M25.562) Resolved Date: 23 May 2020 History of Asymptomatic microscopic hematuria (599.72) (R31.21) Resolved Date: 23 May 2020 History of Chronic bilateral low back pain without sciatica (724.2,338.29) (M54.50,G89.29) Resolved Date: 23 May 2020 History of CRP elevated (790.95) (R79.82) Resolved Date: 23 May 2020 History of Dependent edema (782.3) (R60.9) Resolved Date: 23 May 2020 History of athlete's foot (V12.09) (Z86.19) Resolved Date: 23 May 2020 History of leukocytosis (V12.3) (Z86.2) Resolved Date: 23 May 2020 History of obesity (V12.29) (Z86.39) Resolved Date: 23 May 2020 History of scrotal mass (V13.89) (Z87.438) Resolved Date: 23 May 2020 History of Positive colorectal cancer screening using Cologuard test (787.7) (R19.5) Resolved Date: 23 May 2020 History of Primary osteoarthritis of left knee (715.16) (M17.12) Resolved Date: 23 May 2020 History of Primary osteoarthritis of right knee (715.16) (M17.11) Resolved Date: 23 May 2020 History of Testicular abscess (604.0) (N45.4) Resolved Date: 23 May 2020 Surgical History Problems History of Hernia Repair bilat repaired after Family History Mother Family history of lung cancer (V16.1) (Z80.1) Sibling Family history of obesity (V18.19) (Z83.49) Social History Problems Current every day smoker (305.1) (F17.200) 1/4 PPD now but peak was 1.5ppd smoked for 48 years Daily caffeinated coffee consumption 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 Normal [employer] ([employer]) PHQ-2 VITALSon 05-25-2022 Adult depression screening assessment No [facility] Work Phone: CBCon 05-18-2022 Erythrocyte distribution width (RBC) [Ratio] 15.1 % High 11.5 - 14.5 [facility] Comment on above: Performed By: #### C BC #### [facility] [address] [place] [address] Hematocrit (Bld) [Volume fraction] 46.3 % Normal 41.0 - 52.0 [facility] Comment on above: Performed By: #### C BC #### [facility] [address] [place] [address] Hemoglobin (Bld) [Mass/Vol] 15.5 g/dL Normal 13.5 - 17.5 [facility] Comment on above: Performed By: #### C BC #### [facility] [address] [place] [address] MCHC (RBC) [Mass/Vol] 33.5 g/dL Normal 32.0 - 36.0 [facility] Comment on above: Performed By: #### C BC #### [facility] [address] [place] [address] MCV (RBC) [Entitic vol] 89 fL Normal 80 - 100 [facility] Comment on above: Performed By: #### C BC #### [facility] [address] [place] [address] NUCLEATED RBC 0.0 /100 WBC Normal 0.0-0.0 [facility] Comment on above: Performed By: #### C BC #### [facility] [address] [place] [address] Platelets (Bld) [#/Vol] 308 10*3/uL Normal 150 - 450 [facility] Comment on above: Performed By: #### C BC #### [facility] [address] [place] [address] RBC 5.19 x10E12/L Normal 4.50 - 5.90 [facility] Comment on above: Performed By: #### C BC #### [facility] [address] [place] [address] WBC (Bld) [#/Vol] 10.3 10*3/uL Normal 4.4 - 11.3 [facility] Comment on above: Performed By: #### C BC #### [facility] [address] [place] [address] COMPREHENSIVE PANELon 2022 Albumin [Mass/Vol] 4.7 g/dL Normal 3.4 - 5.0 [facility] Comment on above: Performed By: #### C MP #### [facility] [address] [place] [address] ALP [Catalytic activity/Vol] 52 U/L Normal 33 - 136 [facility] Comment on above: Performed By: #### C MP #### [facility] [address] [place] [address] ALT [Catalytic activity/Vol] 21 U/L Normal 10 - 52 [facility] Comment on above: Result Comment: Perla ents treated with Sulfasalazine may generate falsely decreased results for ALT. Performed By: #### C MP #### [facility] [address] [place] [address] Anion gap [Moles/Vol] 15 mmol/L Normal 10 - 20 [facility] Comment on above: Performed By: #### C MP #### [facility] [address] [place] [address] AST [Catalytic activity/Vol] 14 U/L Normal 9 - 39 [facility] Comment on above: Performed By: #### C MP #### [facility] [address] [place] [address] Bilirubin [Mass/Vol] 0.4 mg/dL Normal 0.0 - 1.2 [facility] Comment on above: Performed By: #### C MP #### [facility] [address] [place] [address] Calcium [Mass/Vol] 9.7 mg/dL Normal 8.6 - 10.6 [facility] Comment on above: Performed By: #### C MP #### [facility] [address] [place] [address] Chloride [Moles/Vol] 103 mmol/L Normal 98 - 107 [facility] Comment on above: Performed By: #### C MP #### [facility] [address] [place] [address] Creatinine [Mass/Vol] 0.93 mg/dL Normal 0.50 - 1.30 [facility] Comment on above: Performed By: #### C MP #### [facility] [address] [place] [address] eGFR MALE >90 Normal >90 [facility] Comment on above: Result Comment: CALC ULATIONS OF ESTIMATED GFR ARE PERFORMED USING THE 2020 CKD-EPI STUDY REFIT EQUATION WITHOUT THE RACE VARIABLE FOR THE IDMS-TRACEABLE CREATININE METHODS. https://jasn.asnjournals.org/content/early/ASN.55035 26443 Performed By: #### C MP #### [place] [address] [place] [address] Glucose [Mass/Vol] 106 mg/dL High 74 - 99 [facility] Comment on above: Performed By: #### C MP #### [facility] [address] [place] [address] HCO3 (Bld) [Moles/Vol] 28 mmol/L Normal 21 - 32 [facility] Comment on above: Performed By: #### C MP #### [facility] [address] [place] [address] Potassium [Moles/Vol] 4.0 mmol/L Normal 3.5 - 5.3 [facility] Comment on above: Performed By: #### C MP #### [facility] [address] [place] [address] Protein [Mass/Vol] 7.3 g/dL Normal 6.4 - 8.2 [facility] Comment on above: Performed By: #### C MP #### [facility] [address] [place] [address] Sodium [Moles/Vol] 142 mmol/L Normal 136 - 145 [facility] Comment on above: Performed By: #### C MP #### [facility] [address] [place] [address] Urea nitrogen [Mass/Vol] 24 mg/dL High 6 - 23 [facility] Comment on above: Performed By: #### C MP #### [facility] [address] [place] [address] LIPID PANEL (CORONARY RISK 2 )on 05-18-2022 Cholesterol [Mass/Vol] 191 mg/dL Normal 0 - 199 [facility] Comment on above: Result Comment: . AGE DESIRABLE BORDERLINE HIGH HIGH 0-19 Y 0 - 169 170 - 199 >/= 200 20-24 Y 0 - 189 190 - 224 >/= 225 >24 Y 0 - 199 200 - 239 >/= 240 All ranges are based on fasting samples. Specific therapeutic targets will vary based on patient-specific cardiac risk. . Pediatric guidelines reference:Pediatrics 2011, 128(S5). Adult guidelines reference: NCEP ATPIII Guidelines, JOSEF 2001, 258:2486-97 . Venipuncture immediately after or during the administration of Metamizole may lead to falsely low results. Testing should be performed immediately prior to Metamizole dosing. Performed By: #### L IPID #### [facility] [address] [place] [address] Cholesterol in HDL [Mass/Vol] 43.4 mg/dL Normal [facility] Comment on above: Result Comment: . AGE VERY LOW LOW NORMAL HIGH 0-19 Y < 35 < 40 40-45 ---- 20-24 Y ---- < 40 >45 ---- >24 Y ---- < 40 40-60 >60 . Performed By: #### L IPID #### [facility] [address] [place] [address] Cholesterol in LDL [Mass/Vol] 131 mg/dL High 0 - 99 [facility] Comment on above: Result Comment: . NEAR BORD AGE DESIRABLE OPTIMAL HIGH HIGH VERY HIGH 0-19 Y 0 - 109 --- 110-129 >/= 130 ---- 20-24 Y 0 - 119 --- 120-159 >/= 160 ---- >24 Y 0 - 99 100-129 130-159 160-189 >/=190 . Performed By: #### L IPID #### [facility] [address] [place] [address] Cholesterol in VLDL [Mass/Vol] 16 mg/dL Normal 0 - 40 [facility] Comment on above: Performed By: #### L IPID #### [facility] [address] [place] [address] Cholesterol.total/Chol esterol in HDL [Mass ratio] 4.4 {ratio} Normal [facility] Comment on above: Result Comment: REF VALUES DESIRABLE < 3.4 HIGH RISK > 5.0 Performed By: #### L IPID #### [facility] [address] [place] [address] Triglyceride [Mass/Vol] 82 mg/dL Normal 0 - 149 [facility] Comment on above: Result Comment: . AGE DESIRABLE BORDERLINE HIGH HIGH VERY HIGH 0 D-90 D 19 - 174 ---- ---- ---- 91 D- 9 Y 0 - 74 75 - 99 >/= 100 ---- 10-19 Y 0 - 89 90 - 129 >/= 130 ---- 20-24 Y 0 - 114 115 - 149 >/= 150 ---- >24 Y 0 - 149 150 - 199 200- 499 >/= 500 . Venipuncture immediately after or during the administration of Metamizole may lead to falsely low results. Testing should be performed immediately prior to Metamizole dosing. Performed By: #### L IPID #### [facility] [address] [place] [address] Laboratory - Chemistry and C hemistry - challengeon 05-18-2022 Albumin BCP dye [Mass/Vol] 4.7 g/dL 3.4 - 5.0 [facility] Work Phone: ALP [Catalytic activity/Vol] 52 U/L 33 - 136 [facility] Work Phone: ALT With P-5'-P [Catalytic activity/Vol] 21 U/L 10 - 52 [facility]: Comment on above: Patients treated wit h Sulfasalazine may generate falsely decreased results for ALT. Anion gap [Moles/Vol] 15 mmol/L 10 - 20 - [facility] Work Phone: AST With P-5'-P [Catalytic activity/Vol] 14 U/L 9 - 39 [facility]: Bilirubin [Mass/Vol] 0.4 mg/dL 0.0 - 1.2 [facility] Work Phone: Calcium [Mass/Vol] 9.7 mg/dL 8.6 - 10.6 -Int [facility] Work Phone: Chloride [Moles/Vol] 103 mmol/L 98 - 107 -I [facility] Work Phone: CO2 [Moles/Vol] 28 mmol/L 21 - 32 -[facility] Work Phone: Creatinine [Mass/Vol] 0.93 mg/dL See Below [facility] Work Phone: Comment on above: Reference Range: 0.5 0 - 1.30 Glucose [Mass/Vol] 106 mg/dL above high threshold 74 - 99 [facility] Work Phone: Potassium [Moles/Vol] 4.0 mmol/L 3.5 - 5.3 [facility] Work Phone: Protein [Mass/Vol] 7.3 g/dL 6.4 - 8.2 [facility] Work Phone: Sodium [Moles/Vol] 142 mmol/L 136 - 145 [facility] Work Phone: TSH Qn 1.04 m[IU]/L See Below [facility] Work Phone: Comment on above: Reference Range: 0.4 4 - 3.98 TSH testing is performed using different testing methodology at [facility] than at other [facility]. Direct result comparisons should only be made within the same method. Urea nitrogen [Mass/Vol] 24 mg/dL above high threshold 6 - 23 [facility] Work Phone: Laboratory - Hematology and Cell countson 05-18-2022 Erythrocyte distribution width (RBC) [Ratio] 15.1 % above high threshold See Below [facility] Work Phone: Comment on above: Reference Range: 11. 5 - 14.5 Hematocrit (Bld) [Volume fraction] 46.3 % See Below [facility] Work Phone: Comment on above: Reference Range: 41. 0 - 52.0 Hemoglobin (Bld) [Mass/Vol] 15.5 g/dL See Below [facility] Work Phone: Comment on above: Reference Range: 13. 5 - 17.5 MCHC (RBC) [Mass/Vol] 33.5 g/dL See Below [facility] Work Phone: Comment on above: Reference Range: 32. 0 - 36.0 MCV (RBC) [Entitic vol] 89 fL 80 - 100 [facility] Work Phone: Platelets (Bld) [#/Vol] 308 10*3/uL 150 - 450 [facility] Work Phone: RBC (Bld) [#/Vol] 5.19 {x10E12/L} See Below [facility] Work Phone: Comment on above: Reference Range: 4.5 0 - 5.90 WBC (Bld) [#/Vol] 10.3 10*3/uL 4.4 - 11.3 [facility] Work Phone: Lipid Panelon 05-18-2022 Cholesterol [Mass/Vol] 191 mg/dL 0 - 199 [facility] Work Phone: Comment on above: . AGE DESIRABLE BORD REJI HIGH HIGH 0-19 Y 0 - 169 170 - 199 >/= 200 20-24 Y 0 - 189 190 - 224 >/= 225 >24 Y 0 - 199 200 - 239 >/= 240 All ranges are based on fasting samples. Specific therapeutic targets will vary based on patient-specific cardiac risk.. Pediatric guidelines reference:Pediatrics 2011, 128(S5). Adult guidelines reference: NCEP ATPIII Guidelines, JOSEF 2001, 258:2486-97. Venipuncture immediately after or during the administration of Metamizole may lead to falsely low results. Testing should be performed immediately prior to Metamizole dosing. Cholesterol in HDL [Mass/Vol] 43.4 mg/dL [facility] Work Phone: Comment on above: . AGE VERY LOW LOW N ORMAL HIGH 0-19 Y < 35 < 40 40-45 ---- 20-24 Y ---- < 40 >45 ---- >24 Y ---- < 40 40-60 >60. Cholesterol in LDL [Mass/Vol] 131 mg/dL above high threshold 0 - 99 [facility]: Comment on above: . NEAR BORD AGE IGNACIO RABLE OPTIMAL HIGH HIGH VERY HIGH 0-19 Y 0 - 109 --- 110-129 >/= 130 ---- 20-24 Y 0 - 119 --- 120-159 >/= 160 ---- >24 Y 0 - 99 100-129 130-159 160-189 >/=190. Cholesterol.total/Chol esterol in HDL [Mass ratio] 4.4 {ratio} [facility] Work Phone: Comment on above: REF VALUESDESIRABLE < 3.4HIGH RISK > 5.0 Triglyceride [Mass/Vol] 82 mg/dL 0 - 149 [facility] Work Phone: Comment on above: . AGE DESIRABLE BORD REJI HIGH HIGH VERY HIGH 0 D-90 D 19 - 174 ---- ---- ----91 D- 9 Y 0 - 74 75 - 99 >/= 100 ---- 10-19 Y 0 - 89 90 - 129 >/= 130 ---- 20-24 Y 0 - 114 115 - 149 >/= 150 ---- >24 Y 0 - 149 150 - 199 200- 499 >/= 500. Venipuncture immediately after or during the administration of Metamizole may lead to falsely low results. Testing should be performed immediately prior to Metamizole dosing. Lipid Panel 16 mg/dL 0 - 40 [facility] Work Phone: No Panel Informationon 05-18 >90 >90 [facility] Work Phone: Comment on above: CALCULATIONS OF TAM MATED GFR ARE PERFORMED USING THE 2020 CKD-EPI STUDY REFIT EQUATION WITHOUT THE RACE VARIABLE FOR THE IDMS-TRACEABLE CREATININE METHODS.https://jasn.asnjournals.org/content/early/A SN.9219059272 0.0 {/100_WBC} 0.0-0.0 [facility] Work Phone: TSH WITH REFLEX TO FREE T4 I F ABNORMALon 05-18-2022 TSH Qn 1.04 m[IU]/L Normal 0.44 - 3.98 [facility] [place] Comment on above: Result Comment: TSH testing is performed using different testing methodology at [facility] than at [facility]. Direct result comparisons should only be made within the same method. Performed By: #### T HYDS #### [facility] [address] [place] [address] VITAMIN D, 25-HYDROXYon VITAMIN D, 25-HYDROXY 61 ng/mL Normal [facility] Comment on above: Result Comment: . DEFICIENCY: < 20 NG/ML INSUFFICIENCY: 20-29 NG/ML SUFFICIENCY: 30-100 NG/ML THIS ASSAY ACCURATELY QUANTIFIES THE SUM OF VITAMIN D3, 25-HYDROXY AND VIT D2,25-HYDROXY. Performed By: #### V TDOH #### [facility] [address] [place] [address] Vitamin D 25-Hydroxyon 05-18 25-hydroxyvitamin D3 [Mass/Vol] 61 ng/mL -[facility] Work Phone: Comment on above: .DEFICIENCY: < 20 NG /MLINSUFFICIENCY: 20-29 NG/MLSUFFICIENCY: 30-100 NG/MLTHIS ASSAY ACCURATELY QUANTIFIES THE SUM OFVITAMIN D3, 25-HYDROXY AND VIT D2,25-HYDROXY. MRI SPINE LUMBAR W/O CONTRAS Ton 05-09-2022 MRI SPINE LUMBAR W/O CONTRAST ORIGINAL EXAMINATION: MRI OF THE LUMBAR SPINE WITHOUT CONTRAST TECHNIQUE: MRI examination of the lumbar spine was obtained utilizing the following sequences: Sagittal and axial T1-weighted, sagittal and axial T2-weighted, and sagittal STIR images COMPARISON: None. HISTORY: ORDERING SYSTEM PROVIDED HISTORY: Reason for Exam: SPINAL STENOSIS, LUMBAR REGION WITHOUT NEUROGENIC CLAUDICATION. Chronic lower back pain +right lower extremity radiculopathy to [place]. FINDINGS: Segmentation: For this report, the last well formed disc is labeled L5-S1. Alignment: 2 mm retrolisthesis of L1 on L2. Vertebral bodies: No acute fracture are height loss. Schmorl's nodes seen at L1, L5, and S1. Distal cord and conus: Normal. The conus terminates at T12-L1. Cauda equina: Branching due to areas of spinal canal stenosis. Discs: Multilevel disc height loss most prominent seen and moderate in severity at L5-S1. T12-L1: Posterior disc osteophyte complex, facet arthropathy, and ligamentum flavum hypertrophy causes central zone narrowing, bilateral subarticular zone narrowing, mild to moderate central canal stenosis, and mild left foraminal stenosis. No significant right foraminal stenosis. L1-L2 : Circumferential disc bulge, facet arthropathy, and ligamentum flavum hypertrophy causes central zone narrowing, bilateral subarticular zone narrowing, moderate central canal stenosis, and mild left greater than right foraminal stenosis. L2-L3 : No significant disc bulge. Mild facet joint arthropathy and posterior ligamentum flavum hypertrophy causes mild central canal and left foraminal stenosis. No right foraminal stenosis. L3-L4 : No significant disc bulge herniation is seen. Mild facet joint arthropathy and posterior ligamentum flavum hypertrophy causes central zone narrowing, mild central canal stenosis and mild left greater than right bilateral foraminal narrowing. L4-L5 :Posterior disc osteophyte complex, facet arthropathy, and ligamentum flavum hypertrophy causes narrowing of the central and bilateral subarticular zones, mild central canal and right foraminal stenosis, and severe left foraminal stenosis. L5-S1 : No significant disc bulge herniation is seen. No stenosis. Paraspinal musculature: Normal. IMPRESSION: Bszr-fa-ugehjtnr stenosis at multiple levels, most prominently T12-L1 and L4-L5 where there is moderate stenosis. Severe left and moderate right foraminal stenosis at L4-L5. Other areas of foraminal stenosis as described above. I have personally reviewed the images of this examination and agree with the resident's findings and interpretation. Interpreted by: Kameron Hussein MD Preliminary Report By: Nadeen Hook Electronically signed By Kameron Hussein MD Dictated Date: 05/09/2022 9:17:31 AM Prelim Date: 05/09/2022 12:52:17 PM Sign Date: 05/09/2022 12:52:17 PM Ordering Provider: ELISEO Yepez [facility] ([place]) .Auto Diffon 04-27-2022 Basophil, Absolute 0.1 10 3/mcL Normal 0.0-0.2 [facility] ([place]) Comment on above: Performed By: #### A JEWEL, GFR, CBC, ADIFF, BMP #### [address] [address] Basophils/100 WBC (Bld) 0.9 % Normal 0.0-2.5 [facility] ([place]) Comment on above: Performed By: #### A JEWEL, GFR, CBC, ADIFF, BMP #### [address] [address] Eosinophil, Absolute 0.3 10 3/mcL Normal 0.0-0.4 [facility] ([place]) Comment on above: Performed By: #### A JEWEL, GFR, CBC, ADIFF, BMP #### [address] [address] Eosinophils/100 WBC (Bld) 2.8 % Normal 0.0-7.0 [facility] ([place]) Comment on above: Performed By: #### A JEWEL, GFR, CBC, ADIFF, BMP #### [address] [address] Lymphocyte, Absolute 2.7 10 3/mcL Normal 0.8-3.9 [facility] ([place]) Comment on above: Performed By: #### A JEWEL, GFR, CBC, ADIFF, BMP #### [address] [address] Lymphocytes/100 WBC (Bld) 21.7 % Normal 10.0-50.0 [facility] ([place]) Comment on above: Performed By: #### A JEWEL, GFR, CBC, ADIFF, BMP #### [address] [address] Monocyte, Absolute 1.1 10 3/mcL High 0.2-1.0 [facility] ([place]) Comment on above: Performed By: #### A JEWEL, GFR, CBC, ADIFF, BMP #### [address] [address] Monocytes/100 WBC (Bld) 8.6 % Normal 1.7-13.0 [facility] ([place]) Comment on above: Performed By: #### A JEWEL, GFR, CBC, ADIFF, BMP #### [address] [address] Neutrophils/100 WBC (Bld) 66.0 % Normal 37.0-80.0 [facility] ([place]) Comment on above: Performed By: #### A JEWEL, GFR, CBC, ADIFF, BMP #### [address] [address] .GFRon 04-27-2022 GFR 107 ml/min/1.73sqm Normal [facility] ([place]) Comment on above: Result Comment: GFR Population mean for , Non- Americans Ages 20-29 = 116 mL/min/1.73 sq.m. Ages 30-39 = 107 mL/min/1.73 sq.m. Ages 40-49 = 99 mL/min/1.73 sq.m. Ages 50-59 = 93 mL/min/1.73 sq.m. Ages 60-69 = 85 mL/min/1.73 sq.m. Ages 70+ = 75 mL/min/1.73 sq.m. Chronic Kidney Disease: Less than 60 mL/min/1.73 square meters End Stage Renal Disease: Less than 15 mL/min/1.73 square meters Performed By: #### A JEWEL, GFR, CBC, ADIFF, BMP #### [address] [address] GFR Non- 88 ml/min/1.73sqm Normal [facility] ([place]) Comment on above: Result Comment: GFR Population mean for , Non- Americans Ages 20-29 = 116 mL/min/1.73 sq.m. Ages 30-39 = 107 mL/min/1.73 sq.m. Ages 40-49 = 99 mL/min/1.73 sq.m. Ages 50-59 = 93 mL/min/1.73 sq.m. Ages 60-69 = 85 mL/min/1.73 sq.m. Ages 70+ = 75 mL/min/1.73 sq.m. Chronic Kidney Disease: Less than 60 mL/min/1.73 square meters End Stage Renal Disease: Less than 15 mL/min/1.73 square meters Performed By: #### A JEWEL, GFR, CBC, ADIFF, BMP #### [address] [address] .NEUABSon 04-27-2022 Neutrophil, Absolute 8.1 10 3/mcL High 2.9-6.2 [facility] ([place]) Comment on above: Performed By: #### A JEWEL, GFR, CBC, ADIFF, BMP #### [address] [address] ALBon 04-27-2022 Albumin Level 3.9 G/dL Normal 3.4-4.8 [facility] ([place]) Comment on above: Performed By: #### A JEWEL, GFR, CBC, ADIFF, BMP #### [address] [address] BMPon 04-27-2022 BUN/Creatinine Ratio 24 ratio Normal 7-27 [facility] ([place]) Comment on above: Performed By: #### A JEWEL, GFR, CBC, ADIFF, BMP #### [address] [address] Calcium [Mass/Vol] 9.2 mg/dL Normal 8.4-10.2 [facility] ([place]) Comment on above: Performed By: #### A JEWEL, GFR, CBC, ADIFF, BMP #### [address] [address] Chloride [Moles/Vol] 106 mmol/L Normal 98-107 [facility] ([place]) Comment on above: Performed By: #### A JEWEL, GFR, CBC, ADIFF, BMP #### [address] [address] CO2 [Moles/Vol] 29 mmol/L Normal 23-31 [facility] ([place]) Comment on above: Performed By: #### A JEWEL, GFR, CBC, ADIFF, BMP #### [address] [address] Creatinine [Mass/Vol] 0.88 mg/dL Normal 0.70-1.30 [facility] ([place]) Comment on above: Performed By: #### A JEWEL, GFR, CBC, ADIFF, BMP #### [address] [address] Electrolyte Balance 8.0 mEq/L Normal 4.0-15.0 [facility] ([place]) Comment on above: Performed By: #### A JEWEL, GFR, CBC, ADIFF, BMP #### [address] [address] Glucose [Mass/Vol] 115 mg/dL Normal 80-115 [facility] ([place]) Comment on above: Performed By: #### A JEWEL, GFR, CBC, ADIFF, BMP #### [address] [address] Potassium [Moles/Vol] 4.4 mmol/L Normal 3.5-5.1 [facility] ([place]) Comment on above: Performed By: #### A JEWEL, GFR, CBC, ADIFF, BMP #### [address] [address] Sodium [Moles/Vol] 143 mmol/L Normal 136-145 [facility] ([place]) Comment on above: Performed By: #### A JEWEL, GFR, CBC, ADIFF, BMP #### [address] [address] Urea nitrogen [Mass/Vol] 21 mg/dL High 7-18 [facility] ([place]) Comment on above: Performed By: #### A JEWEL, GFR, CBC, ADIFF, BMP #### [address] [address] CBCon 04-27-2022 Erythrocyte distribution width (RBC) [Ratio] 15.8 % High 11.5-14.5 [facility] ([place]) Comment on above: Performed By: #### A JEWEL, GFR, CBC, ADIFF, BMP #### [address] [address] Hematocrit (Bld) [Volume fraction] 43.2 % Normal 42.0-52.0 [facility] ([place]) Comment on above: Performed By: #### A JEWEL, GFR, CBC, ADIFF, BMP #### [address] [address] Hgb 14.9 G/dL Normal 14.0-18.0 [facility] ([place]) Comment on above: Performed By: #### A JEWEL, GFR, CBC, ADIFF, BMP #### [address] [address] MCH (RBC) [Entitic mass] 30.4 pg Normal 27.0-31.2 [facility] ([place]) Comment on above: Performed By: #### A JEWEL, GFR, CBC, ADIFF, BMP #### [place] [id number] MCHC 34.4 G/dL Normal 31.8-35.4 [facility] ([place]) Comment on above: Performed By: #### A JEWEL, GFR, CBC, ADIFF, BMP #### [place] [id number] MCV (RBC) [Entitic vol] 88.3 fL Normal 80.0-94.0 [facility] ([place]) Comment on above: Performed By: #### A JEWEL, GFR, CBC, ADIFF, BMP #### [address] [address] Platelet 281 10 3/mcL Normal 130-400 [facility] ([place] Comment on above: Performed By: #### A JEWEL, GFR, CBC, ADIFF, BMP #### [address] [address] Platelet mean volume (Bld) [Entitic vol] 7.8 fL Normal 7.4-10.4 [facility] ([place]) Comment on above: Performed By: #### A JEWEL, GFR, CBC, ADIFF, BMP #### [address] [address] RBC 4.89 10 6/mcL Normal 4.04-6.13 [facility] ([place]) Comment on above: Performed By: #### A JEWEL, GFR, CBC, ADIFF, BMP #### [place] [id number] [place], [place] [address] WBC 12.3 10 3/mcL High 4.6-10.8 [facility] ([place]) Comment on above: Performed By: #### A JEWEL, GFR, CBC, ADIFF, BMP #### [place] [id number] [place], [place] [address] No Panel Informationon 03-30 Please click on the link to view the study images Normal [facility] Work Phone: Office Visiton 03-30-2022 Follow-up visit Diagnoses/Problems Low back pain (724.2) (M54.50) Acute right-sided low back pain with right-sided sciatica (724.2,724.3) (M54.41) Hypertension (401.9) (I10) Knee osteoarthritis (715.36) (M17.9) Asthma (493.90) (J45.909) Orders Acute right-sided low back pain with right-sided sciatica Start: predniSONE 10 MG Oral Tablet; Take 4 pills daily for 3 days, then take 3 pills daily for 3 days, then take 2 pills daily for 3 days then take 1 pill daily for 3 days Acute right-sided low back pain with right-sided sciatica, Low back pain Xray Lumbosacral Spine Min 4 View; Status:Hold For - Scheduling; Requested for:30Mar2022; Radiologist to Determine Optimal Study : Y What are the patient's signs and symptoms? : low back pain Asthma Renew: Albuterol Sulfate HFA 108 (90 Base) MCG/ACT Inhalation Aerosol Solution (ProAir HFA); INHALE 2 PUFFS EVERY 4 HOURS NEEDED Formulary Override Reason: Drug has been unsuccessful in the past Patient Discussion/Summary ALbuterol HFA and Ventolin HFA are the same medication. This is a rescue inhaiiler for SOB and asthma Get fasting labs in May get xray of low back take prednisone as directed Provider Impressions 1. Asthma, patient wants a refill of both albuterol and Ventolin but I explained that these are the exact same medication. I will give him the albuterol and explained in writing that they have the same medication so we can show the information to his . He denies any recent asthma exacerbations 2. Hypertension, initial blood pressure was elevated but recheck was only 118/76 so no changes will be made 3. Patient has a lot of low back pain and pain radiating down both legs but it significantly worse on the right side. I suspect he may have a herniated disc or sciatica but it is difficult to assess. I will get an x-ray of the lumbar back today and place him on a prednisone taper to see if it helps with the pain. Patient was given a requisition to get annual fasting labs in May and will follow-up with me at that time. Chief Complaint pt is here for 4 mon for HTN management. BN//AMD History of Present IllnessPatient is here for follow-up 4 months for his hypertension, pulmonary disease and medication management. Patient asked for refill on tramadol which I gave him to get through the honeymoon because of leg pain and stiffness. He notes that every morning when he wakes up he can barely get out of bed. He has pain primarily around the right lower back extending into the right buttocks and all the way down the right leg. The left leg is also painful but the right side is worse. He feels like he needs to stretch and get his muscles to relax in the morning before he can get up to stand and even walk to the bathroom. He says it is very uncomfortable and then as the day goes by he slowly limbers up and is able to start walking. Review of Systems See chief complaint and history of present illness. Patient's main issue right now is low back pain radiating into the right leg thigh and all the way down to the right ankle. He is worse first thing in the morning and then slowly improves as the day goes by as he continues to move. He continues to work on weight loss so he can get knee replacements as well. Pt denies fever, chills, malaise or headache. Pt denies SOB, cough or HAWKINS. Pt denies Chest pains pressures or palpitations. Pt denies Nausea, vomiting, constipation, or diarrhea. Active Problems Arthritis of both knees (716.96) (M17.0) Asthma (493.90) (J45.909) BMI 45.0-49.9, adult (V85.42) (Z68.42) Cellulitis of left lower extremity (682.6) (L03.116) Excessive daytime sleepiness (780.54) (G47.19) History of colon polyps (V12.72) (Z86.010) Hypertension (401.9) (I10) Knee osteoarthritis (715.36) (M17.9) Malignant melanoma (172.9) (C43.9) romoved from right cheek approx 2007 Need for influenza vaccination (V04.81) (Z23) Nicotine dependence (305.1) (F17.200) Obesity (278.00) (E66.9) RALPH (obstructive sleep apnea) (327.23) (G47.33) Osteoarthritis of both hands, unspecified osteoarthritis type (715.94) (M19.041,M19.042) Osteoarthritis of both knees, unspecified osteoarthritis type (715.96) (M17.0) Scrotal abscess (608.4) (N49.2) Vitamin D deficiency (268.9) (E55.9) Past Medical History History of Acute pain of left knee (719.46) (M25.562) Resolved Date: 23 May 2020 History of Asymptomatic microscopic hematuria (599.72) (R31.21) Resolved Date: 23 May 2020 History of Chronic bilateral low back pain without sciatica (724.2,338.29) (M54.50,G89.29) Resolved Date: 23 May 2020 History of CRP elevated (790.95) (R79.82) Resolved Date: 23 May 2020 History of Dependent edema (782.3) (R60.9) Resolved Date: 23 May 2020 History of athlete's foot (V12.09) (Z86.19) Resolved Date: 23 May 2020 History of leukocytosis (V12.3) (Z86.2) Resolved Date: 23 May 2020 History of obesity (V12.29) (Z86.39) Resolved Date: 23 May 2020 History of (more content not included)... Normal [facility] PHQ-2 [facility] 03-30-2022 Adult depression screening assessment No [facility] Work Phone: Adult depression screening assessment Yes [facility] Work Phone: SPINE, LUMBOSACRAL; MIN 4 EWSon 03-30-2022 SPINE, LUMBOSACRAL; MIN 4 VIEWS Patient Name: ILDEFONSO ROCHA STUDY: SPINE, LUMBOSACRAL MIN 4 VIEWS; 03/30/2022 10:47 am INDICATION: low back pain M54.50: Low back pain M54.41: Acute right-sided low back pain with right-sided sciatica. COMPARISON: None. ACCESSION NUMBER(S): [id number] ORDERING CLINICIAN: OPAL MEDINA FINDINGS: Lumbar spine, multiple views There is moderate multilevel disc space narrowing osteophytosis throughout the lumbar spine worse at L1-L2. Moderate facet disease lower lumbar spine. There is no fracture. There is no spondylolisthesis IMPRESSION: Moderate facet disease lower lumbar spine. Moderate spondylotic changes worse at L1-L2 Electronically signed by: KELSIE JUÁREZ MD [facility] Established Visit (Orthopaed ic Surgery)on 01-18-2022 Established Visit (Orthopaedic Surgery) Diagnoses/Problems Assessed Arthritis of both knees (716.96) (M17.0) Chief Complaint INJECTION History of Present Illness Patient is a 61-year-old male presents today with known osteoarthritis of his bilateral knees. He had injections 3 months ago which she is only getting about 1 month of relief. He states the pain today is 6 out of 10 nonradiating. He denies any instability or mechanical symptoms. He is still trying to lose weight. He understands that he needs to be at a BMI of 40 prior to undergoing surgery. He would like a referral to medical weight loss today. I think this is reasonable. He would like a cortisone injections in both of his knees today which is reasonable. Discussion: I discussed the conservative treatment options for severe osteoarthritis bilateral knee including but not limited to physical therapy, oral NSAIDS, activity and lifestyle modification, and corticosteroid injections. Pt has elected to try a cortisone injection today. I have explained the risk and benefits of an injection including the possibility of joint infection, bleeding, damage to cartilage, allergic reaction. Patient verbalized understanding and gave verbal consent wishes to proceed with a intraarticular cortisone injection for their knee. Procedure With the patient's informed verbal consent, the bilateral knees were prepped in standard sterile fashion with Chlorhexidine. The skin was then anesthetized with ethyl chloride spray and cleaned again with Chlorhexidine. The knee was then apirated/injected with a prefilled 20-gauge syringe of 40 mg Kenalog + 4 ml Lidocaine using the inferior lateral approach without complications. Each knee as a separate procedure The patient tolerated this well and felt immediate initial relief of symptoms. A bandaid was applied and the patient ambulated out of the clinic on ther own accord without difficulty. Patient was instructed to avoid physical activity for 24-48 hours to prevent the knees from swelling and may ice the knees as tolerated. Patient should contact the office if any signs of of infection appear: redness, fever, chills, drainage, swelling or warmth to the knees. Pt understands that the injections can be repeated no sooner than 3 months. Plan: 1. osteoarthritis bilateral knees PT can resume activities as tolerated. She can follow-up in 3 months, no x-rays needed. All questions were answered. This note was created using voice recognition software and was not corrected for typographical or grammatical errors. . Active Problems Problems Arthritis of both knees (716.96) (M17.0) Asthma (493.90) (J45.909) BMI 45.0-49.9, adult (V85.42) (Z68.42) Cellulitis of left lower extremity (682.6) (L03.116) Excessive daytime sleepiness (780.54) (G47.19) History of colon polyps (V12.72) (Z86.010) Hypertension (401.9) (I10) Knee osteoarthritis (715.36) (M17.10) Malignant melanoma (172.9) (C43.9) romoved from right cheek approx 2006 Need for influenza vaccination (V04.81) (Z23) Nicotine dependence (305.1) (F17.200) RALPH (obstructive sleep apnea) (327.23) (G47.33) Osteoarthritis of both hands, unspecified osteoarthritis type (715.94) (M19.041,M19.042) Osteoarthritis of both knees, unspecified osteoarthritis type (715.96) (M17.0) Scrotal abscess (608.4) (N49.2) Vitamin D deficiency (268.9) (E55.9) Past Medical History Problems History of Acute pain of left knee (719.46) (M25.562) Resolved Date: 23 May 2020 History of Asymptomatic microscopic hematuria (599.72) (R31.21) Resolved Date: 23 May 2020 History of Chronic bilateral low back pain without sciatica (724.2,338.29) (M54.50,G89.29) Resolved Date: 23 May 2020 History of CRP elevated (790.95) (R79.82) Resolved Date: 23 May 2020 History of Dependent edema (782.3) (R60.9) Resolved Date: 23 May 2020 History of athlete's foot (V12.09) (Z86.19) Resolved Date: 23 May 2020 History of leukocytosis (V12.3) (Z86.2) Resolved Date: 23 May 2020 History of obesity (V12.29) (Z86.39) Resolved Date: 23 May 2020 History of scrotal mass (V13.89) (Z87.438) Resolved Date: 23 May 2020 History of Positive colorectal cancer screening using Cologuard test (787.7) (R19.5) Resolved Date: 23 May 2020 History of Primary osteoarthritis of left knee (715.16) (M17.12) Resolved Date: 23 May 2020 History of Primary osteoarthritis of right knee (715.16) (M17.11) Resolved Date: 23 May 2020 History of Testicular abscess (604.0) (N45.4) Resolved Date: 23 May 2020 Surgical History Problems History of Hernia Repair bilat repaired after Family History Mother Family history of lung cancer (V16.1) (Z80.1) Sibling Family history of obesity (V18.19) (Z83.49) Social History Problems Current every day smoker (305.1) (F17.200) 1/4 PPD now but peak was 1.5ppd smoked for 48 years Daily caffeinated coffee consumption 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 Normal [facility] Office Visiton 12-07-2021 Follow-up visit Diagnoses/Problems Knee osteoarthritis (715.36) (M17.10) Osteoarthritis of both knees, unspecified osteoarthritis type (715.96) (M17.0) Hypertension (401.9) (I10) Asthma (493.90) (J45.909) Orders Knee osteoarthritis, Osteoarthritis of both knees, unspecified osteoarthritis type Start: traMADol HCl - 50 MG Oral Tablet; Take 1 tablet twice daily Patient Discussion/Summary f/u Dr raines in 4months Provider Impressions 1. Osteoarthritis of both knees, patient was given 14 tablets of tramadol to use during the wedding and the cruise so that he can function better since he cannot get the steroid injection until after his vacation. 2. Hypertension is stable and well-controlled 3. Asthma or COPD, patient's breathing is stable and he denies any shortness of breath Regular follow-up with me will be in 4 months or as needed Annual labs are due in May Chief Complaint pt is here for 3 mon f/u for HTN and COPD management. BN//AMD History of Present IllnessShe is here for routine follow-up on his hypertension and COPD. He continuously has irritation in the scrotum and perineum with recurrent sebaceous cysts which often burst and drained. 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 When it gets out of control he does not go see a surgeon for drainage when necessary. Currently he is finalizing a mortgage today with his new fianc Sarah Coronado. [place] on Jan 07. He is worried about the cruise in his knees because he cannot get steroid injections until after the cruise and he has difficulty walking because of the pain. He wants to know if he can have just enough tramadol to get through the actual cruise which is 6 days long. I have told him I can give him a 7-day supply so that he can take 1 on the day of the wedding also in case he needs it because of the activities and festivities. The state database was reviewed and it shows that he has not had any narcotics in the last 2 years therefore I did give him a 7-day supply Review of Systems Pt denies fever, chills, malaise or headache. Pt denies SOB, cough or HAWKINS. Pt denies Chest pains pressures or palpitations. Pt denies Nausea, vomiting, constipation, or diarrhea. Pt denies swelling of hands feet ankles or joints. He does complain of pain in his knees especially by the end of the day. Active Problems Arthritis of both knees (716.96) (M17.0) Asthma (493.90) (J45.909) BMI 45.0-49.9, adult (V85.42) (Z68.42) Cellulitis of left lower extremity (682.6) (L03.116) Excessive daytime sleepiness (780.54) (G47.19) History of colon polyps (V12.72) (Z86.010) Hypertension (401.9) (I10) Malignant melanoma (172.9) (C43.9) romoved from right cheek approx 2006 Need for influenza vaccination (V04.81) (Z23) Nicotine dependence (305.1) (F17.200) RALPH (obstructive sleep apnea) (327.23) (G47.33) Osteoarthritis of both hands, unspecified osteoarthritis type (715.94) (M19.041,M19.042) Scrotal abscess (608.4) (N49.2) Vitamin D deficiency (268.9) (E55.9) Past Medical History History of Acute pain of left knee (719.46) (M25.562) Resolved Date: 23 May 2020 History of Asymptomatic microscopic hematuria (599.72) (R31.21) Resolved Date: 23 May 2020 History of Chronic bilateral low back pain without sciatica (724.2,338.29) (M54.50,G89.29) Resolved Date: 23 May 2020 History of CRP elevated (790.95) (R79.82) Resolved Date: 23 May 2020 History of Dependent edema (782.3) (R60.9) Resolved Date: 23 May 2020 History of athlete's foot (V12.09) (Z86.19) Resolved Date: 23 May 2020 History of leukocytosis (V12.3) (Z86.2) Resolved Date: 23 May 2020 History of obesity (V12.29) (Z86.39) Resolved Date: 23 May 2020 History of scrotal mass (V13.89) (Z87.438) Resolved Date: 23 May 2020 History of Positive colorectal cancer screening using Cologuard test (787.7) (R19.5) Resolved Date: 23 May 2020 History of Primary osteoarthritis of left knee (715.16) (M17.12) Resolved Date: 23 May 2020 History of Primary osteoarthritis of right knee (715.16) (M17.11) Resolved Date: 23 May 2020 History of Testicular abscess (604.0) (N45.4) Resolved Date: 23 May 2020 Surgical History History of Hernia Repair bilat repaired after Social History Current every day smoker (305.1) (F17.200) 1/4 PPD now but peak was 1.5ppd smoked for 48 years Daily caffeinated coffee consumption 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 Normal [facility] BILATERAL KNEE; COMPLT, 4 OR MORE VIEWSon 10-13-2021 BILATERAL KNEE; COMPLT, 4 OR MORE VIEWS Patient Name: ILDEFONSO ROCHA STUDY: BILATERAL KNEE; COMPLT, 4 OR MORE VIEWS; 10/13/2021 10:20 am INDICATION: pain M17.0: Arthritis of both knees. COMPARISON: 09/29/2019 ACCESSION NUMBER(S): [id number] ORDERING CLINICIAN: GRICELDA GUARDADO FINDINGS: Bilateral knees, four views There is severe joint space narrowing with sclerosis and osteophytosis the medial compartments bilaterally. Bilateral genu varum. Mild degenerative change the lateral and patellofemoral compartments as well. 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 Electronically signed by: KELSIE JUÁREZ MD Normal [facility] Established Visit (Orthopaed ic Surgery)on 10-13-2021 Established Visit (Orthopaedic Surgery) Diagnoses/Problems Assessed Arthritis of both knees (716.96) (M17.0) Chief Complaint FUV Bilateral knee injections History of Present Illness Patient is a 61-year-old gentleman with known advanced underlying osteoarthritis of his bilateral knees, is morbidly obese with a BMI of 42 Injection of the bilateral knees Risk, benefits, alternatives, bleeding risk, infection risk and allergic reaction risk were discussed with the patient. Verbal consent was obtained prior to the procedure. Preparation: chlorhexidine was used to prep the area. INR was not reviewed prior to the start of the procedure. ethyl chloride spray was used as a topical anesthetic. Procedure Note: Using sterile technique, the aspiration/injection needle was then directed from a/an lateral and anterior aspect. A 20-gauge was used to inject 4 mL of 1% Lidocaine and 1 mL of 40mg/mL triamcinolone. A bandage was applied. Post-Procedure: the patient tolerated the procedure well. Complications: None. Follow-up in the office as needed This note was created using voice recognition software and was not corrected for typographical or grammatical errors.. Active Problems Problems Arthritis of both knees (716.96) (M17.0) Asthma (493.90) (J45.909) BMI 45.0-49.9, adult (V85.42) (Z68.42) Cellulitis of left lower extremity (682.6) (L03.116) Excessive daytime sleepiness (780.54) (G47.19) History of colon polyps (V12.72) (Z86.010) Hypertension (401.9) (I10) Malignant melanoma (172.9) (C43.9) romoved from right cheek approx 2006 Need for influenza vaccination (V04.81) (Z23) Nicotine dependence (305.1) (F17.200) RALPH (obstructive sleep apnea) (327.23) (G47.33) Osteoarthritis of both hands, unspecified osteoarthritis type (715.94) (M19.041,M19.042) Scrotal abscess (608.4) (N49.2) Vitamin D deficiency (268.9) (E55.9) Past Medical History Problems History of Acute pain of left knee (719.46) (M25.562) Resolved Date: 23 May 2020 History of Asymptomatic microscopic hematuria (599.72) (R31.21) Resolved Date: 23 May 2020 History of Chronic bilateral low back pain without sciatica (724.2,338.29) (M54.50,G89.29) Resolved Date: 23 May 2020 History of CRP elevated (790.95) (R79.82) Resolved Date: 23 May 2020 History of Dependent edema (782.3) (R60.9) Resolved Date: 23 May 2020 History of athlete's foot (V12.09) (Z86.19) Resolved Date: 23 May 2020 History of leukocytosis (V12.3) (Z86.2) Resolved Date: 23 May 2020 History of obesity (V12.29) (Z86.39) Resolved Date: 23 May 2020 History of scrotal mass (V13.89) (Z87.438) Resolved Date: 23 May 2020 History of Positive colorectal cancer screening using Cologuard test (787.7) (R19.5) Resolved Date: 23 May 2020 History of Primary osteoarthritis of left knee (715.16) (M17.12) Resolved Date: 23 May 2020 History of Primary osteoarthritis of right knee (715.16) (M17.11) Resolved Date: 23 May 2020 History of Testicular abscess (604.0) (N45.4) Resolved Date: 23 May 2020 Surgical History Problems History of Hernia Repair bilat repaired after Family History Mother Family history of lung cancer (V16.1) (Z80.1) Sibling Family history of obesity (V18.19) (Z83.49) Social History Problems Current every day smoker (305.1) (F17.200) 1/4 PPD now but peak was 1.5ppd smoked for 48 years Daily caffeinated coffee consumption 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 hydroCHLOROthiazide 50 MG Oral TabletTake 1 tablet daily Multi Vitamin Daily Oral TabletTAKE 1 TABLET DAILY. Sulfamethoxazole-Trimeth oprim 800-160 MG Oral TabletTAKE 1 TABLET TWICE DAILY UNTIL FINISHED. Ventolin HFA 108 (90 Base) MCG/ACT Inhalation Aerosol SolutionINHALE 2 PUFFS 3 times daily PRN Vitamin D 50 MCG (2000 UT) Oral CapsuleTAKE 1 CAPSULE Daily Signatures Electronically signed by : Gricelda Guardado MD; Oct 13 2021 10:35AM EST (Author) Normal [facility] 10-13-2021 XR Knee 4 Views Please click on the link to view the study images [facility] Work Phone: XR Knee 4 Views [facility] 130 DO Work Phone: XR Knee 1 or 2 Views Please click on the link to view the study images [facility] Work Phone: Established Visit (Orthopaed ic Surgery)on 07-14-2021 Established Visit (Orthopaedic Surgery) Diagnoses/Problems Assessed Arthritis of both knees (716.96) (M17.0) Chief Complaint FUV Bilateral knee injection History of Present Illness Patient is a 61-year-old male presents today with known osteoarthritis of both knees. He is here today for bilateral injections. States the pain is 7 out of 10. Last injection was 3 months ago and only lasted a couple of weeks. He is completely fed up with his quality of life. He has pain going up and down stairs. He would like to consider joint arthroplasty in the future. His BMI is still over 40. We calculated that he needs to be losing about 43 pounds before he is at a BMI of 40. He will try to work on this in the interim. We will see him back in 3 months for injections. Discussion: I discussed the conservative treatment options for severe osteoarthritis of bilateral knee including but not limited to physical therapy, oral NSAIDS, activity and lifestyle modification, and corticosteroid injections. Pt has elected to try a cortisone injection today. I have explained the risk and benefits of an injection including the possibility of joint infection and damage to cartilage. Patient verbalized understanding and wishes to proceed with a intraarticular cortisone injection for bilateral knees. Procedure With the patient's informed verbal consent, the bilateral knees were prepped in standard sterile fashion with Chlorhexidine. The skin of each knee was then anesthetized with ethyl chloride spray and cleaned again with Chlorhexidine. The knee was then apirated/injected with a prefilled syringe of 40 mg Kenalog + 4 ml Lidocaine using the inferior lateral approach without difficulty. Each knee was injected as a separate procedure. The patient tolerated this well and felt immediate initial relief of symptoms. A bandaid was applied and the patient ambulated out of the clinic on ther own accord without difficulty. Patient was instructed to avoid physical activity for 24-48 hours to prevent the knees from swelling and may ice the knees as tolerated. Patient should contact the office if any signs of infection appear: redness, fever, chills, drainage, swelling or warmth to the knees. Pt understands that the injections can be repeated no sooner than 3 months. Plan: Pt can resume activities as tolerated and can follow-up in 3 months, no x-rays needed. All questions were answered. This note was created using voice recognition software and was not corrected for typographical or grammatical errors. . Active Problems Problems Arthritis of both knees (716.96) (M17.0) Asthma (493.90) (J45.909) BMI 45.0-49.9, adult (V85.42) (Z68.42) Excessive daytime sleepiness (780.54) (G47.19) History of colon polyps (V12.72) (Z86.010) Hypertension (401.9) (I10) Malignant melanoma (172.9) (C43.9) romoved from right cheek approx 2006 Need for influenza vaccination (V04.81) (Z23) Nicotine dependence (305.1) (F17.200) RALPH (obstructive sleep apnea) (327.23) (G47.33) Osteoarthritis of both hands, unspecified osteoarthritis type (715.94) (M19.041,M19.042) Vitamin D deficiency (268.9) (E55.9) Past Medical History Problems History of Acute pain of left knee (719.46) (M25.562) Resolved Date: 23 May 2020 History of Asymptomatic microscopic hematuria (599.72) (R31.21) Resolved Date: 23 May 2020 History of Chronic bilateral low back pain without sciatica (724.2,338.29) (M54.50,G89.29) Resolved Date: 23 May 2020 History of CRP elevated (790.95) (R79.82) Resolved Date: 23 May 2020 History of Dependent edema (782.3) (R60.9) Resolved Date: 23 May 2020 History of athlete's foot (V12.09) (Z86.19) Resolved Date: 23 May 2020 History of leukocytosis (V12.3) (Z86.2) Resolved Date: 23 May 2020 History of obesity (V12.29) (Z86.39) Resolved Date: 23 May 2020 History of scrotal mass (V13.89) (Z87.438) Resolved Date: 23 May 2020 History of Positive colorectal cancer screening using Cologuard test (787.7) (R19.5) Resolved Date: 23 May 2020 History of Primary osteoarthritis of left knee (715.16) (M17.12) Resolved Date: 23 May 2020 History of Primary osteoarthritis of right knee (715.16) (M17.11) Resolved Date: 23 May 2020 History of Testicular abscess (604.0) (N45.4) Resolved Date: 23 May 2020 Surgical History Problems History of Hernia Repair bilat repaired after Family History Mother Family history of lung cancer (V16.1) (Z80.1) Sibling Family history of obesity (V18.19) (Z83.49) Social History Problems Current every day smoker (305.1) (F17.200) 1/4 PPD now but peak was 1.5ppd smoked for 48 years Daily caffeinated coffee consumption 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 Normal [facility] Office Visiton 07-14-2021 Follow-up visit Diagnoses/Problems Cellulitis of left lower extremity (682.6) (L03.116) Scrotal abscess (608.4) (N49.2) Hypertension (401.9) (I10) Asthma (493.90) (J45.909) Orders Cellulitis of left lower extremity, Scrotal abscess Start: Cephalexin 500 MG Oral Capsule; TAKE 1 CAPSULE EVERY 12 HOURS DAILY PMH: Dependent edema, Hypertension Renew: hydroCHLOROthiazide 50 MG Oral Tablet; Take 1 tablet daily Scrotal abscess Start: Sulfamethoxazole-Trimeth oprim 800-160 MG Oral Tablet; TAKE 1 TABLET TWICE DAILY UNTIL FINISHED Patient Discussion/Summary Stay off work until seen by surgeon. Please restart the Keflex and Bactrim(Generic) F/u with Dr Scott [facility] [phone] Must be seen next week. f/u Dr Raines in 3 months for 30 min appt Provider Impressions Patient has a new scrotal abscess on the right side, recurrent cellulitis of the left thigh and I believe he needs an IANDD and should go back and see the surgeon. I will have him follow-up with Dr. Scott next week but in the meantime I will restart both the Bactrim and the Keflex since he has not been on either of these in the past 10 days. 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 Chief Complaint f/u for hospital and HTN management. BN//AMD History of Present IllnessPatient is here for hypertension management and most importantly for hospital follow-up. Patient was admitted to [facility] on June 24 and discharged June 27 for severe cellulitis of the left thigh, abscess of the left side, COPD exacerbation and hypertension and make medication management. Patient did have an incision and drainage of the left thigh and was placed on Keflex and Bactrim at the hospital for an Enterococcus infection. He did follow-up with the surgeon Dr. Martha Scott as an outpatient on July 03. He was told to complete the 10 days of antibiotics and that he could then return to work but the patient continues to have new infections and problems. Although the left thigh has slightly improved he now has an abscess on the right scrotum which drained earlier this week but he can feel the mass in the scrotum again and it is worsening Review of Systems See chief complaint and history of present illness. Patient complains of a mass in the right testicle, inflammation and irritation of the left thigh He denies any current drainage today Pt denies fever, chills, malaise or headache. Pt denies SOB, cough or HAWKINS. Pt denies Chest pains pressures or palpitations. Pt denies Nausea, vomiting, constipation, or diarrhea. Pt denies swelling of hands feet ankles or joints. Active Problems Arthritis of both knees (716.96) (M17.0) Asthma (493.90) (J45.909) BMI 45.0-49.9, adult (V85.42) (Z68.42) Excessive daytime sleepiness (780.54) (G47.19) History of colon polyps (V12.72) (Z86.010) Hypertension (401.9) (I10) Malignant melanoma (172.9) (C43.9) romoved from right cheek approx 2006 Need for influenza vaccination (V04.81) (Z23) Nicotine dependence (305.1) (F17.200) RALPH (obstructive sleep apnea) (327.23) (G47.33) Osteoarthritis of both hands, unspecified osteoarthritis type (715.94) (M19.041,M19.042) Vitamin D deficiency (268.9) (E55.9) Past Medical History History of Acute pain of left knee (719.46) (M25.562) Resolved Date: 23 May 2020 History of Asymptomatic microscopic hematuria (599.72) (R31.21) Resolved Date: 23 May 2020 History of Chronic bilateral low back pain without sciatica (724.2,338.29) (M54.50,G89.29) Resolved Date: 23 May 2020 History of CRP elevated (790.95) (R79.82) Resolved Date: 23 May 2020 History of Dependent edema (782.3) (R60.9) Resolved Date: 23 May 2020 History of athlete's foot (V12.09) (Z86.19) Resolved Date: 23 May 2020 History of leukocytosis (V12.3) (Z86.2) Resolved Date: 23 May 2020 History of obesity (V12.29) (Z86.39) Resolved Date: 23 May 2020 History of scrotal mass (V13.89) (Z87.438) Resolved Date: 23 May 2020 History of Positive colorectal cancer screening using Cologuard test (787.7) (R19.5) Resolved Date: 23 May 2020 History of Primary osteoarthritis of left knee (715.16) (M17.12) Resolved Date: 23 May 2020 History of Primary osteoarthritis of right knee (715.16) (M17.11) Resolved Date: 23 May 2020 History of Testicular abscess (604.0) (N45.4) Resolved Date: 23 May 2020 Surgical History History of Hernia Repair bilat repaired after Social History Current every day sm (more content not included)... Normal [employer] LABORATORYOrdered By: Deandre Aragon on 06-27-2021 Creatinine [Mass/Vol] 0.77 mg/dL Invalid Interpretation Code 0.70 - 1.30 mg/dL AO ADM SS LDose Vancomycin:(trough) See eMAR (06/27/21 9:01 AM) Invalid Interpretation Code AO Chemistry S Urea nitrogen [Mass/Vol] 12 mg/dL Invalid Interpretation Code 7 - 18 mg/dL AO ADM SS Vancomycin trough [Mass/Vol] 18.6 ug/mL Invalid Interpretation Code 5.0 - 20.0 mcg/mL AO ADM SS LABORATORYOrdered By: SYSTEM SYSTEM on 06-27-2021 GFR 125 ml/min/1.73sqm Invalid Interpretation Code AO Chemistry S GFR Non- 103 ml/min/1.73sqm Invalid Interpretation Code AO Chemistry S LABORATORYOrdered By: Jeannette Sampson on 06-27-2021 Basophil, Absolute 0.20 103/mcL Invalid Interpretation Code 0.00 - 0.19 10^3/mcL AO Auto Heme SS Basophils/100 WBC (Bld) 2.0 % Invalid Interpretation Code 0.0 - 2.5 % AO Auto Heme SS Eosinophil, Absolute 0.50 103/mcL Invalid Interpretation Code 0.00 - 0.40 10^3/mcL AO Auto Heme SS Eosinophils/100 WBC (Bld) 5.5 % Invalid Interpretation Code 0.0 - 7.0 % AO Auto Heme SS Erythrocyte distribution width (RBC) [Ratio] 15.6 % Invalid Interpretation Code 11.5 - 14.5 % AO Auto Heme SS Hematocrit (Bld) [Volume fraction] 36.6 % Invalid Interpretation Code 42.0 - 52.0 % AO Auto Heme SS Hemoglobin (Bld) [Mass/Vol] 12.5 G/dL Invalid Interpretation Code 14.0 - 18.0 G/dL AO Auto Heme SS Lymphocyte, Absolute 2.80 103/mcL Invalid Interpretation Code 0.77 - 3.85 10^3/mcL AO Auto Heme SS Lymphocytes/100 WBC (Bld) 31.7 % Invalid Interpretation Code 10.0 - 50.0 % AO Auto Heme SS MCH (RBC) [Entitic mass] 29.5 pg Invalid Interpretation Code 27.0 - 31.2 pg AO Auto Heme SS MCHC (RBC) [Mass/Vol] 34.1 G/dL Invalid Interpretation Code 31.8 - 35.4 G/dL AO Auto Heme SS MCV (RBC) [Entitic vol] 86.5 fL Invalid Interpretation Code 80.0 - 94.0 fL AO Auto Heme SS Monocyte, Absolute 1.10 103/mcL Invalid Interpretation Code 0.15 - 1.00 10^3/mcL AO Auto Heme SS Monocytes/100 WBC (Bld) 12.3 % Invalid Interpretation Code 1.7 - 13.0 % AO Auto Heme SS Neutrophil, Absolute 4.20 103/mcL Invalid Interpretation Code 2.85 - 6.16 10^3/mcL AO Auto Heme SS Neutrophils/100 WBC (Bld) 48.5 % Invalid Interpretation Code 37.0 - 80.0 % AO Auto Heme SS Platelet mean volume (Bld) [Entitic vol] 7.5 fL Invalid Interpretation Code 7.4 - 10.4 fL AO Auto Heme SS Platelets (Bld) [#/Vol] 266 103/mcL Invalid Interpretation Code 130 - 400 10^3/mcL AO Auto Heme SS RBC (Bld) [#/Vol] 4.22 106/mcL Invalid Interpretation Code 4.04 - 6.13 10^6/mcL AO Auto Heme SS WBC (Bld) [#/Vol] 8.70 103/mcL Invalid Interpretation Code 4.60 - 10.80 10^3/mcL AO Auto Heme SS LABORATORYOrdered By: Jeannette Sampson on 06-26-2021 Basophil, Absolute 0.10 103/mcL Invalid Interpretation Code 0.00 - 0.19 10^3/mcL AO Auto Heme SS Basophils/100 WBC (Bld) 0.8 % Invalid Interpretation Code 0.0 - 2.5 % AO Auto Heme SS BUN/Creatinine Ratio 15 ratio Invalid Interpretation Code 7 - 27 ratio AO Chemistry S Calcium [Mass/Vol] 8.6 mg/dL Invalid Interpretation Code 8.4 - 10.2 mg/dL AO Chemistry S Chloride [Moles/Vol] 107 mmol/L Invalid Interpretation Code 98 - 107 mmol/L AO Chemistry S CO2 [Moles/Vol] 27 mmol/L Invalid Interpretation Code 22 - 29 mmol/L AO Chemistry S Creatinine [Mass/Vol] 0.81 mg/dL Invalid Interpretation Code 0.70 - 1.30 mg/dL AO Chemistry S Electrolyte Balance 10.0 mEq/L Invalid Interpretation Code 4.0 - 15.0 mEq/L AO Chemistry S Eosinophil, Absolute 0.40 103/mcL Invalid Interpretation Code 0.00 - 0.40 10^3/mcL AO Auto Heme SS Eosinophils/100 WBC (Bld) 3.0 % Invalid Interpretation Code 0.0 - 7.0 % AO Auto Heme SS Erythrocyte distribution width (RBC) [Ratio] 15.7 % Invalid Interpretation Code 11.5 - 14.5 % AO Auto Heme SS Glucose [Mass/Vol] 117 mg/dL Invalid Interpretation Code 70 - 105 mg/dL AO Chemistry S Hematocrit (Bld) [Volume fraction] 36.3 % Invalid Interpretation Code 42.0 - 52.0 % AO Auto Heme SS Hemoglobin (Bld) [Mass/Vol] 12.4 G/dL Invalid Interpretation Code 14.0 - 18.0 G/dL AO Auto Heme SS LDose Vancomycin:(trough) See eMAR (06/26/21 5:36 AM) Invalid Interpretation Code AO Chemistry S Lymphocyte, Absolute 2.70 103/mcL Invalid Interpretation Code 0.77 - 3.85 10^3/mcL AO Auto Heme SS Lymphocytes/100 WBC (Bld) 20.8 % Invalid Interpretation Code 10.0 - 50.0 % AO Auto Heme SS MCH (RBC) [Entitic mass] 28.9 pg Invalid Interpretation Code 27.0 - 31.2 pg AO Auto Heme SS MCHC (RBC) [Mass/Vol] 34.2 G/dL Invalid Interpretation Code 31.8 - 35.4 G/dL AO Auto Heme SS MCV (RBC) [Entitic vol] 84.5 fL Invalid Interpretation Code 80.0 - 94.0 fL AO Auto Heme SS Monocyte, Absolute 1.30 103/mcL Invalid Interpretation Code 0.15 - 1.00 10^3/mcL AO Auto Heme SS Monocytes/100 WBC (Bld) 10.4 % Invalid Interpretation Code 1.7 - 13.0 % AO Auto Heme SS Neutrophil, Absolute 8.30 103/mcL Invalid Interpretation Code 2.85 - 6.16 10^3/mcL AO Auto Heme SS Neutrophils/100 WBC (Bld) 65.0 % Invalid Interpretation Code 37.0 - 80.0 % AO Auto Heme SS Platelet mean volume (Bld) [Entitic vol] 7.4 fL Invalid Interpretation Code 7.4 - 10.4 fL AO Auto Heme SS Platelets (Bld) [#/Vol] 240 103/mcL Invalid Interpretation Code 130 - 400 10^3/mcL AO Auto Heme SS Potassium [Moles/Vol] 4.3 mmol/L Invalid Interpretation Code 3.5 - 5.1 mmol/L AO Chemistry S RBC (Bld) [#/Vol] 4.29 106/mcL Invalid Interpretation Code 4.04 - 6.13 10^6/mcL AO Auto Heme SS Sodium [Moles/Vol] 144 mmol/L Invalid Interpretation Code 136 - 145 mmol/L AO Chemistry S Urea nitrogen [Mass/Vol] 12 mg/dL Invalid Interpretation Code 7 - 18 mg/dL AO Chemistry S Vancomycin trough [Mass/Vol] 7.7 ug/mL Invalid Interpretation Code 5.0 - 20.0 mcg/mL AO ADM SS WBC (Bld) [#/Vol] 12.80 103/mcL Invalid Interpretation Code 4.60 - 10.80 10^3/mcL AO Auto Heme SS LABORATORYOrdered By: SYSTEM SYSTEM on 06-26-2021 GFR 118 ml/min/1.73sqm Invalid Interpretation Code AO Chemistry S GFR Non- 98 ml/min/1.73sqm Invalid Interpretation Code AO Chemistry S No Panel Informationon 06-26 Culture Wound Deep Panel Culture results pending. [facility] Work Phone: GS No organisms seen. [facility] Work Phone: LABORATORYOrdered By: Ela Garcia on 06-25-2021 Basophil, Absolute 0.10 103/mcL Invalid Interpretation Code 0.00 - 0.19 10^3/mcL AO Auto Heme SS Basophils/100 WBC (Bld) 0.8 % Invalid Interpretation Code 0.0 - 2.5 % AO Auto Heme SS Calcium [Mass/Vol] 8.5 mg/dL Invalid Interpretation Code 8.4 - 10.2 mg/dL AO ADM SS Chloride [Moles/Vol] 105 mmol/L Invalid Interpretation Code 98 - 107 mmol/L AO ADM SS CO2 [Moles/Vol] 28 mmol/L Invalid Interpretation Code 22 - 29 mmol/L AO ADM SS Creatinine [Mass/Vol] 0.72 mg/dL Invalid Interpretation Code 0.70 - 1.30 mg/dL AO ADM SS Electrolyte Balance 9.0 mEq/L Invalid Interpretation Code 4.0 - 15.0 mEq/L AO ADM SS Eosinophil, Absolute 0.40 103/mcL Invalid Interpretation Code 0.00 - 0.40 10^3/mcL AO Auto Heme SS Eosinophils/100 WBC (Bld) 2.1 % Invalid Interpretation Code 0.0 - 7.0 % AO Auto Heme SS Erythrocyte distribution width (RBC) [Ratio] 15.6 % Invalid Interpretation Code 11.5 - 14.5 % AO Auto Heme SS Glucose [Mass/Vol] 109 mg/dL Invalid Interpretation Code 70 - 105 mg/dL AO ADM SS Hematocrit (Bld) [Volume fraction] 37.2 % Invalid Interpretation Code 42.0 - 52.0 % AO Auto Heme SS Hemoglobin (Bld) [Mass/Vol] 12.8 G/dL Invalid Interpretation Code 14.0 - 18.0 G/dL AO Auto Heme SS Lymphocyte, Absolute 2.30 103/mcL Invalid Interpretation Code 0.77 - 3.85 10^3/mcL AO Auto Heme SS Lymphocytes/100 WBC (Bld) 13.6 % Invalid Interpretation Code 10.0 - 50.0 % AO Auto Heme SS Magnesium [Mass/Vol] 2.1 mg/dL Invalid Interpretation Code 1.8 - 2.4 mg/dL AO ADM SS MCH (RBC) [Entitic mass] 29.0 pg Invalid Interpretation Code 27.0 - 31.2 pg AO Auto Heme SS MCHC (RBC) [Mass/Vol] 34.3 G/dL Invalid Interpretation Code 31.8 - 35.4 G/dL AO Auto Heme SS MCV (RBC) [Entitic vol] 84.4 fL Invalid Interpretation Code 80.0 - 94.0 fL AO Auto Heme SS Monocyte, Absolute 2.20 103/mcL Invalid Interpretation Code 0.15 - 1.00 10^3/mcL AO Auto Heme SS Monocytes/100 WBC (Bld) 12.6 % Invalid Interpretation Code 1.7 - 13.0 % AO Auto Heme SS Neutrophil, Absolute 12.10 103/mcL Invalid Interpretation Code 2.85 - 6.16 10^3/mcL AO Auto Heme SS Neutrophils/100 WBC (Bld) 70.9 % Invalid Interpretation Code 37.0 - 80.0 % AO Auto Heme SS Platelet mean volume (Bld) [Entitic vol] 7.2 fL Invalid Interpretation Code 7.4 - 10.4 fL AO Auto Heme SS Platelets (Bld) [#/Vol] 234 103/mcL Invalid Interpretation Code 130 - 400 10^3/mcL AO Auto Heme SS Potassium [Moles/Vol] 3.3 mmol/L Invalid Interpretation Code 3.5 - 5.1 mmol/L AO ADM SS RBC (Bld) [#/Vol] 4.41 106/mcL Invalid Interpretation Code 4.04 - 6.13 10^6/mcL AO Auto Heme SS Sodium [Moles/Vol] 142 mmol/L Invalid Interpretation Code 136 - 145 mmol/L AO ADM SS Urea nitrogen [Mass/Vol] 14 mg/dL Invalid Interpretation Code 7 - 18 mg/dL AO ADM SS Urea nitrogen/Creatinine [Mass ratio] 19 ratio Invalid Interpretation Code 7 - 27 ratio AO ADM SS WBC (Bld) [#/Vol] 17.00 103/mcL Invalid Interpretation Code 4.60 - 10.80 10^3/mcL AO Auto Heme SS LABORATORYOrdered By: SYSTEM SYSTEM on 06-25-2021 GFR 135 ml/min/1.73sqm Invalid Interpretation Code AO Chemistry S GFR Non- 112 ml/min/1.73sqm Invalid Interpretation Code AO Chemistry S LABORATORYOrdered By: Ela Garcia on 06-24-2021 Lactate [Moles/Vol] 1.2 mmol/L Invalid Interpretation Code 0.4 - 2.0 mmol/L AO ADM SS LABORATORYOrdered By: Laisha Cavanaugh on 06-24-2021 Basophil %, Manual 0.0 1 Invalid Interpretation Code 0.0 - 2.5 % AO Auto Heme SS Basophil, Abs Manual 0.00 103/mcL Invalid Interpretation Code 0.00 - 0.19 10^3/mcL AO Auto Heme SS Calcium [Mass/Vol] 9.0 mg/dL Invalid Interpretation Code 8.4 - 10.2 mg/dL AO ADM SS Chloride [Moles/Vol] 101 mmol/L Invalid Interpretation Code 98 - 107 mmol/L AO ADM SS CO2 [Moles/Vol] 28 mmol/L Invalid Interpretation Code 22 - 29 mmol/L AO ADM SS Electrolyte Balance 11.0 mEq/L Invalid Interpretation Code 4.0 - 15.0 mEq/L AO ADM SS Eosinophil %, Manual 3.0 1 Invalid Interpretation Code 0.0 - 7.0 % AO Auto Heme SS Eosinophil, Abs Manual 0.73 103/mcL Invalid Interpretation Code 0.00 - 0.40 10^3/mcL AO Auto Heme SS Glucose [Mass/Vol] 128 mg/dL Invalid Interpretation Code 70 - 105 mg/dL AO ADM SS Lymphocyte %, Manual 5.0 1 Invalid Interpretation Code 10.0 - 50.0 % AO Auto Heme SS Lymphocyte, Abs Manual 1.22 103/mcL Invalid Interpretation Code 0.77 - 3.85 10^3/mcL AO Auto Heme SS Monocyte %, Manual 4.0 1 Invalid Interpretation Code 1.7 - 13.0 % AO Auto Heme SS Monocyte, Abs Manual 0.98 103/mcL Invalid Interpretation Code 0.15 - 1.00 10^3/mcL AO Auto Heme SS Neutrophil %, Manual 88.0 1 Invalid Interpretation Code 37.0 - 80.0 % AO Auto Heme SS Neutrophil, Abs Manual 21.47 103/mcL Invalid Interpretation Code 2.85 - 6.16 10^3/mcL AO Auto Heme SS Platelet Estimate Normal (06/24/21 3:12 PM) Invalid Interpretation Code AO Auto Heme SS Potassium [Moles/Vol] 3.4 mmol/L Invalid Interpretation Code 3.5 - 5.1 mmol/L AO ADM SS Sodium [Moles/Vol] 140 mmol/L Invalid Interpretation Code 136 - 145 mmol/L AO ADM SS Urea nitrogen/Creatinine [Mass ratio] 15 ratio Invalid Interpretation Code 7 - 27 ratio AO ADM SS No Panel Informationon 06-24 Microscopic examination of blood, culture Culture has been received in lab and is no growth to date. Routine cultures are held for 5 days. [facility] Work Phone: Microscopic examination of blood, culture Culture has been received in lab and is no growth to date. Routine cultures are held for 5 days. [facility] Work Phone: BASIC METABOLIC PANELon 05-2 Anion gap [Moles/Vol] 10 mmol/L Normal 10 - 20 [facility] Comment on above: Performed By: #### B MP #### [address] [address] Calcium [Mass/Vol] 8.9 mg/dL Normal 8.6 - 10.3 [facility] Comment on above: Performed By: #### B MP #### [address] [address] Chloride [Moles/Vol] 104 mmol/L Normal 98 - 107 [facility] Comment on above: Performed By: #### B MP #### [address] [address] Creatinine [Mass/Vol] 0.91 mg/dL Normal 0.50 - 1.30 [facility] Comment on above: Performed By: #### B MP #### [address] [address] GFR- AM. >60 Normal >60 [facility] Comment on above: Result Comment: CALC ULATIONS OF ESTIMATED GFR ARE PERFORMED USING THE MDRD STUDY EQUATION FOR THE IDMS-TRACEABLE CREATININE METHODS. CLIN CHEM 2007;53:766-72 Performed By: #### B MP #### [address] [address] GFR-NON AM. >60 Normal >60 [facility] Comment on above: Performed By: #### B MP #### [address] [address] Glucose [Mass/Vol] 82 mg/dL Normal 74 - 99 [facility] Comment on above: Performed By: #### B MP #### [address] [place] [address] HCO3 (Bld) [Moles/Vol] 27 mmol/L Normal 21 - 32 [facility] Comment on above: Performed By: #### B MP #### [facility] [address] [place] [address] Potassium [Moles/Vol] 3.5 mmol/L Normal 3.5 - 5.3 [facility] Comment on above: Performed By: #### B MP #### [facility] [address] [place] [address] Sodium [Moles/Vol] 137 mmol/L Normal 136 - 145 [facility] Comment on above: Performed By: #### B MP #### [address] [address] Urea nitrogen [Mass/Vol] 17 mg/dL Normal 6 - 23 [facility] Comment on above: Performed By: #### B MP #### [address] [address] History and Physical - Surgi cirilo Update < 30 dayson 10-06-2019 History and Physical - Surgical Update < 30 days History & Physical Reviewed: I have reviewed the History and Physical dated: 06-Oct-2019 History and Physical reviewed and relevant findings noted. Patient examined to review pertinent physical findings.: No significant changes Home Medications Reviewed: no changes noted Allergies Reviewed: no changes noted This patient has been seen and discussed with the attending physician responsible for performing the procedure: yes Signatures/Attestation/C ertification: Note Completion: JACKLYN StatementI am solely responsible for all documentation captured within this clinical document, including critical care time, if applicable. The attending physician signature below is only for admission certification purposes. Attending Provider Inpatient Certification StatementObservation patient/other outpatient visits Electronic Signatures: Monica Earl) (Signed 06-Oct-2019 15:51) Authored: History & Physical Reviewed, Signatures/Attestation/C ertification Last Updated: 06-Oct-2019 15:51 by Monica Earl) Normal [facility] MISCELLANEOUS CULT./SM.BACT. on 10-06-2019 MISCELLANEOUS CULT./SM.BACT. PATIENT: ILDEFONSO ROCHA LOCATION: [facility] PMO BILL#: [id number] : 64 AGE: SEX: M ORDERED BY: MONICA EARL SOURCE: MISC COLLECTED: 10/06/19 15:26 ANTIBIOTICS AT [facility].: RECEIVED : 10/06/19 21:19 SITE: FLUID IN SCROTUM R E S U L T S GRAM STAIN FINAL 10/06/19 22:55 1+ GRANULOCYTES. NO ORGANISMS SEEN. MISCELLANEOUS CULT./SM.BACT. FINAL 10/09/19 15:49 ISOLATE1 : Enterococcus faecalis 1+ NO HIGH LEVEL GENTAMICIN RESISTANCE DETECTED Organism Ec faecalis Antibiotic BP INTRP Ampicillin S Gent Synergy S Penicillin S Vancomycin S S=SUSCEPTIBLE I=INTERMEDIATE R=RESISTANT SDD=SUSCEPTIBLE DOSE DEPENDENT NS=NONSUSCEPTIBLE X=REPORTED IN ERROR Normal [facility] Comment on above: Performed By: #### M [facility] #### [facility] [address] [address] [address] Operative Reports - Jorge A 10-06-2019 Operative Reports - [place] PROCEDURE: Incision and drainage of right hemiscrotal hematoma and excision of an infected sebaceous cyst. ANESTHESIA: General. PREOPERATIVE DIAGNOSES: Infected sebaceous cyst and mass in the right hemiscrotum. POSTOPERATIVE DIAGNOSES: Infected sebaceous cyst and hematoma in the right hemiscrotum. BRIEF CLINICAL NOTE: This is a 59-year-old male who presents to my office with a persistent draining sinus in the right hemiscrotum. The patient was found to have what appeared to be an infected sebaceous cyst in the right hemiscrotum as well as a 3 cm firm mass above where the cyst was located. I could not tell whether these 2 entities connected with each other. A recommendation for excision of both masses was made and he comes into the operating room now to have this performed. OPERATIVE NOTE: The patient was brought into the operating room, placed on operating table in the supine position and after adequate general anesthesia was induced, he was placed in the dorsal lithotomy position. After sterilely prepping and draping the patient's perineum and genital area, the opening to the infected sebaceous cyst was quickly identified. The sebaceous cyst was excised in its entirety and sent to Pathology for evaluation. Using sharp dissection, the mass that was located above the sebaceous cyst was opened and was found to be filled with old clot. This was irrigated out and the margins of the fluid cavity were clean. No evidence of malignancy or other abnormalities were identified. At this point, after ensuring adequate hemostasis, the wound was packed with 1 inch Nu Gauze. The skin of the hemiscrotum was closed in an interrupted manner using #2 Prolene suture. The Nu Gauze packing was sutured to the skin. A dry sterile dressing was applied. The patient was placed in the supine position, awakened, and transferred to the recovery room in satisfactory condition. Monica Earl MD EST EST DICTATION NUMBER: [id number] INTERNAL JOB NUMBER: [id number] Electronic Signatures: Monica Earl) (Signed on 13-Oct-2019 15:03) Authored Unsigned, Draft (SYS GENERATED) (Entered on 06-Oct-2019 16:54) Entered Last Updated: 13-Oct-2019 15:03 by Monica Earl) [facility] Histologyon 10-06-2019 [place] [facility] Name ILDEFONSO ROCHA Pathologist: JEROME LYON MD Date of Procedure: 10/06/2019 Date Received: 10/06/2019 Date Reported 10/12/2019 Submitting Physician: MONICA EARL MD Location: Other External # FINAL DIAGNOSIS SEBACEOUS CYST FROM SCROTUM: --RUPTURED EPIDERMOID CYST WITH DERMAL ACUTE AND CHRONIC INFLAMMATION WITH GRANULATION TISSUE PROLIFERATION. Electronically Signed Out By JEROME LYON MD/CGS By the signature on this report, the individual or group listed as making the Final Interpretation/Diagnosis certifies that they have reviewed this case. Microscopic Description: All slides are examined microscopically and the diagnosis is stated above. Clinical History: Scrotal mass Excision of infected sebaceous perineal cyst Specimens Submitted As: A: SEBACEOUS CYST FROM SCROTUM Gross Description: Received in formalin, labeled with the patient's name and hospital number and sebaceous cyst from scrotum", is a single fragment of skin and underlying tissue measuring 2.7 x 1.2 x 1.2 cm. The skin surface is wrinkled but appears unremarkable. There are multiple hairs present. The specimen is serially sectioned to reveal an intact cyst demonstrating red to singh/brown gelatinous material and pus measuring 0.5 x 0.5 cm and 0.5 cm in length. Pilling Machine Operator sections are submitted in one cassette. RL rl/10/06/2019 Normal [facility] Comment on above: Performed By: #### P #### [facility] [id number] [facility] [id number] Preop Checkliston 10-06-2019 Preop Checklist Preop Checklist: Preop Checklist: Arrival [id number] Arrival Time12:42 Procedure Typeabcess removal NPO [id number] 00:00 ID Band Onyes Allergy Bandno known allergies Consent Signedpending H&P Completeyes Anesthesia Assessment Completedpending EKG Performedyes SCD's Appliedsent to OR Denturesleft in patient room Prostheticsnot applicable Hearing Aidsnot applicable Valuables Securednot applicable Glasses / Contactsnot applicable Cardiovascular Assessment: Apicalregular Radial Pulsespalpable Respiratory Assessment: Respirationsunlabored Air Exchangeequal Breath Soundsclear Neurological Assessment: Level of Consciousnessalert Mobilitymoves all extremities Able to Express Selfyes Age Appropriateyes Emotional Statuscalm Preop Education: Surgical Site Infection Preventionyes Pain Scales and Managementyes Language / Communication: Language / CommunicationEnglish Electronic Signatures: Anayeli Coles (RN) (Signed 06-Oct-2019 12:43) Authored: Preop Checklist Last Updated: 06-Oct-2019 12:43 by Anayeli ColesRN) [facility] Patient Profile - Preop v2on 10-02-2019 Patient Profile - Preop v2 Profile: Initial Info: How to be AddressedChris(1) Spoken Language PreferredEnglish (1) Source of Informationpatient Stated Reason for Admissionabcess removal Primary Contact Name and Numbersee facesheet Patient Belongingsremains with patient Patient Belongings Remaining with Patientcash/credit card; clothing; cell phone/electronics Medications Brought to Hospitalno Are you currently using the Personal Electronic Health Record or [employer]no (1) Are you interested in learning more about [employer] for the management of your healthnot at this time Instructions Givenappropriate clothing, bring responsible adult as the driver merchandiser (procedure may be cancelled if no driver merchandiser), center location, remove jewerly/piercings, time to arrive, arrival time of 1330 for 1430 no am meds Prep Instructions Reviewedyes Prep Typeper office Instructed to Have No Fluids Aftermidnight General Health: Blood Avoidance/Restrictionsno ne Weight in kg137.5 kilogram(s) Weight in awn860.1 pound(s) Weight Methodstated Height in cm177.8 centimeter(s) Height in feet5 feet Height in twtywj19 inch(es) Height Methodstated BMI (kg/m2)43.494 square meter Patient or Family Member Reaction to Anesthesiano previous reaction Health Mgmt: Barriers to Managing Healthnone Symptoms/Conditions Managed at [facility] Relationship/Environ: Resource/Environmental Concernsnone Substance: Current or Former Substance Use never: e-Cigarette/Vaping, Alcohol, Street Drugs YES: Cigarette/Tobacco Tobacco Cessation Education (provide if tobacco use within the last 12 mos) patient declined Risk Screens: COVID-19 Screening Completedno exposure or symptoms Advance Directive/DNRno Advance Directive Information Givenpatient/family declined During the past month, have you often been bothered by feeling down, depressed or hopelessno During the past month, have you often had little interest or pleasure in doing thingsno Have you had any thoughts of harming yourselfno Have you had any thoughts of harming anyone elseno Are you or have you been threatened or abused physically,emotionally or sexually abused by anyoneno Do you feel UNSAFE going back to the place you are livingno Patient is Able to be Assessed for Learningyes Factors Influencing Readiness to Learnanxiety; pain Factors that Impact Ability to Learnnone Devices/Methods Used to Communicatenone Learning Preferencesverbal instruction Cultural Considerationsnone Developmental Considerationsnone Taoist Considerationsnone Other learner availableno [place] RiskPatient location auto qualifies him/her for HIGH RISK. Are there any cultural, spiritual, holiness practices/values/needs that are important for us to knowno Do you want a visit/item from [facility] Would you like your Alterations Supervisor/Animal Humane Agent Supervisor notifiedno Pain Scalenumerical 0-10 Pain Scale Educationteaching provided Current Pain Level0 = None Acceptable Pain Level0 = None Chronic Painno Information Review: Allergies, Home Meds and Significant Events have been Reviewed and Verified with Patient/Familyyes Allergy, Intolerance, Adverse Event: Allergies: No Known Allergies: Active Electronic Signatures: Anayeli Coles (SANA) (Signed 06-Oct-2019 12:46) Authored: Profile, Additional Information Nile Savage) (Signed 02-Oct-2019 12:54) Authored: Profile, Additional Information Last Updated: 06-Oct-2019 12:46 by Anayeli Coles (SANA) References: 1. Data Referenced From Patient Profile - Preop v2" 05-Sep-2018 10:21 Normal [facility] Otheron 09-25-2019 XR Chest 2 views Interpreted by: SARAN BONILLA09/25/19 11:39MRN: [id number] Name: ILDEFONSO ROCHA STUDY:TH CHEST 2 VIEW PA AND LAT; 09/25/2019 11:08 am INDICATION:leukocytosis. COMPARISON:None. ORDERING CLINICIAN:OPAL MEDINA FINDINGS:PA and lateral views of the chest were obtained. No focalinfiltrate, pleural effusion or pneumothorax is identified. Thecardiac silhouette is within normal limits for size. Mild discogenicdegenerative changes are seen throughout the thoracic spine. IMPRESSION:No focal infiltrate or pneumothorax.Electronica lly signed by: SARAN BONILLA 09/25/19 11:39 Normal [facility] Work Phone: CRP, High Sensitivityon 09-10 CRP High sensitivity method [Mass/Vol] 18.3 mg/L Abnormal [facility] Work Phone: Comment on above: hsCRP INTERPRETATION mg/L < 1.0 LOW RELATIVE RISK OF CVD 1.0-3.0 AVERAGE RELATIVE RISK OF CVD > 3.0 HIGH RELATIVE RISK OF CVD Source:CHELSEY TAnabelle A. et al. CIRCULATION 2003;107:499-511. Complete Blood Count + Diffe rentialon 09-21-2019 Basophils/100 WBC (Bld) 1.3 % 0.0 - 2.0 [facility] Work Phone: Eosinophils (Bld) [#/Vol] 0.38 {x10E9/L} See Below [facility] Work Phone: Comment on above: Reference Range: 0.0 0 - 0.70 Eosinophils/100 WBC (Bld) 2.8 % 0.0 - 6.0 [facility] Work Phone: Erythrocyte distribution width (RBC) [Ratio] 14.6 % above high threshold See Below [facility] Work Phone: Comment on above: Reference Range: 11. 5 - 14.5 Hematocrit (Bld) [Volume fraction] 46.0 % See Below [facility] Work Phone: Comment on above: Reference Range: 41. 0 - 52.0 Hemoglobin (Bld) [Mass/Vol] 15.9 g/dL See Below [facility] Work Phone: Comment on above: Reference Range: 13. 5 - 17.5 Lymphocytes (Bld) [#/Vol] 4.03 {x10E9/L} See Below [facility] Work Phone: Comment on above: Reference Range: 1.2 0 - 4.80 Lymphocytes/100 WBC (Bld) 30.0 % See Below [facility] Work Phone: Comment on above: Reference Range: 13. 0 - 44.0 MCHC (RBC) [Mass/Vol] 34.6 g/dL See Below [facility] Work Phone: Comment on above: Reference Range: 32. 0 - 36.0 MCV (RBC) [Entitic vol] 88 fL 80 - 100 [facility] Work Phone: Monocytes (Bld) [#/Vol] 1.38 {x10E9/L} above high threshold See Below [facility] [employer] [facility] Work Phone: Comment on above: Reference Range: 0.1 0 - 1.00 Monocytes/100 WBC (Bld) 10.3 % 2.0 - 10.0 [facility] Work Phone: Neutrophils (Bld) [#/Vol] 7.40 {x10E9/L} See Below [facility] Work Phone: Comment on above: Reference Range: 1.2 0 - 7.70 Neutrophils/100 WBC (Bld) 55.1 % See Below [facility] [employer] [facility] Work Phone: Comment on above: Reference Range: 40. 0 - 80.0 Platelets (Bld) [#/Vol] 281 {x10E9/L} 150 - 450 [facility] Work Phone: RBC (Bld) [#/Vol] 5.25 {x10E12/L} See Below [facility] [employer] [facility] Work Phone: Comment on above: Reference Range: 4.5 0 - 5.90 WBC (Bld) [#/Vol] 13.4 {x10E9/L} above high threshold 4.4 - 11.3 [facility] Work Phone: WBC (Bld) [#/Vol] 0.0 {/100_WBC} 0.0-0.0 [facility] Work Phone: Complete Blood Count + Differential 0.5 % 0.0 - 0.9 [facility] Work Phone: Comment on above: Immature Granulocyte Count (IG) includes promyelocytes, myelocytes and metamyelocytes but does not include bands. Percent differential counts (%) should be interpreted in the context of the absolute cell counts (cells/L). Complete Blood Count + Differential 0.17 {x10E9/L} above high threshold See Below [facility] Work Phone: Comment on above: Reference Range: 0.0 0 - 0.10 Hematologyon 05-25-2019 Hematocrit (Bld) [Volume fraction] 44.5 % See Below [facility] Work Phone: Comment on above: Reference Range: 41. 0 - 52.0 Hemoglobin (Bld) [Mass/Vol] 15.1 g/dL See Below [facility] Work Phone: Comment on above: Reference Range: 13. 5 - 17.5 MCV (RBC) [Entitic vol] 88 fL 80 - 100 [facility] Work Phone: Platelets (Bld) [#/Vol] 252 {x10E9/L} 150 - 450 [facility] Work Phone: RBC (Bld) [#/Vol] 5.08 {x10E12/L} See Below [facility] Work Phone: Comment on above: Reference Range: 4.5 0 - 5.90 WBC (Bld) [#/Vol] 0.0 {/100_WBC} 0.0-0.0 [facility] Work Phone: WBC (Bld) [#/Vol] 11.5 {x10E9/L} above high threshold 4.4 - 11.3 [facility] Work Phone: Lipid Panelon 05-25-2019 Cholesterol [Mass/Vol] 161 mg/dL 0 - 199 [facility] Work Phone: Comment on above: . AGE DESIRABLE BORD REJI HIGH HIGH 0-19 Y 0 - 169 170 - 199 >/= 200 20-24 Y 0 - 189 190 - 224 >/= 225 >24 Y 0 - 199 200 - 239 >/= 240 All ranges are based on fasting samples. Specific therapeutic targets will vary based on patient-specific cardiac risk.. Pediatric guidelines reference:Pediatrics 2011, 128(S5). Adult guidelines reference: NCEP ATPIII Guidelines, JOSEF 2001, 258:2486-97. Venipuncture immediately after or during the administration of Metamizole may lead to falsely low results. Testing should be performed immediately prior to Metamizole dosing. Cholesterol in HDL [Mass/Vol] 45.1 mg/dL [facility] [employer] [facility] Work Phone: Comment on above: . AGE VERY LOW LOW N ORMAL HIGH 0-19 Y < 35 < 40 40-45 ---- 20-24 Y ---- < 40 >45 ---- >24 Y ---- < 40 40-60 >60. Cholesterol in LDL [Mass/Vol] 97 mg/dL 0 - 99 [facility] Work Phone: Comment on above: . NEAR BORD AGE IGNACIO RABLE OPTIMAL HIGH HIGH VERY HIGH 0-19 Y 0 - 109 --- 110-129 >/= 130 ---- 20-24 Y 0 - 119 --- 120-159 >/= 160 ---- >24 Y 0 - 99 100-129 130-159 160-189 >/=190. Cholesterol.total/Chol esterol in HDL [Mass ratio] 3.6 {ratio} [facility] Work Phone: Comment on above: REF VALUESDESIRABLE < 3.4HIGH RISK > 5.0 Triglyceride [Mass/Vol] 97 mg/dL 0 - 149 [facility] [employer] Work Phone: Comment on above: . AGE DESIRABLE BORD REJI HIGH HIGH VERY HIGH 0 D-90 D 19 - 174 ---- ---- ----91 D- 9 Y 0 - 74 75 - 99 >/= 100 ---- 10-19 Y 0 - 89 90 - 129 >/= 130 ---- 20-24 Y 0 - 114 115 - 149 >/= 150 ---- >24 Y 0 - 149 150 - 199 200- 499 >/= 500. Venipuncture immediately after or during the administration of Metamizole may lead to falsely low results. Testing should be performed immediately prior to Metamizole dosing. Lipid Panel 19 mg/dL 0 - 40 [facility] Work Phone: Metabolic Panelon 05-25-2019 ALP [Catalytic activity/Vol] 58 U/L 33 - 120 [facility] Work Phone: Anion gap [Moles/Vol] 15 mmol/L 10 - 20 [facility] Work Phone: Bilirubin [Mass/Vol] 0.4 mg/dL 0.0 - 1.2 -[facility] Work Phone: Calcium [Mass/Vol] 9.6 mg/dL 8.6 - 10.6 -[facility] Work Phone: Chloride [Moles/Vol] 103 mmol/L 98 - 107 -[facility] Work Phone: CO2 [Moles/Vol] 25 mmol/L 21 - 32 -[facility] Work Phone: Creatinine [Mass/Vol] 1.02 mg/dL See Below [facility] Work Phone: Comment on above: Reference Range: 0.5 0 - 1.30 Glucose [Mass/Vol] 92 mg/dL 74 - 99 -[facility] Work Phone: Potassium [Moles/Vol] 4.0 mmol/L 3.5 - 5.3 [facility] Work Phone: Protein [Mass/Vol] 6.9 g/dL 6.4 - 8.2 -Int [facility] Work Phone: Sodium [Moles/Vol] 139 mmol/L 136 - 145 -[facility] Work Phone: Urea nitrogen [Mass/Vol] 17 mg/dL 6 - 23 [facility] Work Phone: Otheron 05-25-2019 Albumin BCP dye [Mass/Vol] 4.1 g/dL 3.4 - 5.0 [facility] Work Phone: ALT With P-5'-P [Catalytic activity/Vol] 24 U/L 10 - 52 [facility] Work Phone: Comment on above: Patients treated wit h Sulfasalazine may generate falsely decreased results for ALT. AST With P-5'-P [Catalytic activity/Vol] 15 U/L 9 - 39 [facility] Work Phone: Erythrocyte distribution width (RBC) [Ratio] 14.9 % above high threshold See Below [facility] Work Phone: Comment on above: Reference Range: 11. 5 - 14.5 MCHC (RBC) [Mass/Vol] 33.9 g/dL See Below [facility] Work Phone: Comment on above: Reference Range: 32. 0 - 36.0 >60 >60 [facility] Work Phone: Comment on above: CALCULATIONS OF TAM MATED GFR ARE PERFORMED USING THE MDRD STUDY EQUATION FOR THE IDMS-TRACEABLE CREATININE METHODS. CLIN CHEM 2007;53:766-72 Thyroidon 05-25-2019 TSH Qn 1.59 {mIU/L} See Below [facility] Work Phone: Comment on above: Reference Range: 0.4 4 - 3.98 TSH testing is performed using different testing methodology at [facility] than at other [facility]. Direct result comparisons should only be made within the same method.. Patients receiving more than 5 mg/day of biotin may have interference in test results. A sample should be taken no sooner than eight hours after previous dose. Contact [phone] for additional information. Vitamin D 25-Hydroxyon 05-25 Calcidiol [Mass/Vol] 33 ng/mL [facility] Work Phone: Comment on above: .DEFICIENCY: < 20 NG /MLINSUFFICIENCY: 20-29 NG/MLOPTIMUM LEVEL: 30-80 NG/MLPOSSIBLE TOXICITY: > 80 NG/MLTHIS ASSAY ACCURATELY QUANTIFIES THE SUM OFVITAMIN D3, 25-HYDROXY AND VIT D2,25-HYDROXY. [facility] 09[facility] Name ILDEFONSO ROCHA Pathologist: ANA GARCIA MD Date of Procedure: 09/08/2018 Date Received: 09/08/2018 Date Reported 09/10/2018 Submitting Physician: CURT SOUSA MD Location: [facility] Copy To/Referring/Attending: CURT SOUSA MD Other External # FINAL DIAGNOSIS A. HEPATIC FLEXURE POLYP X2: ----SERRATED POLYPS B. MID TRANSVERSE COLON POLYP: ----HYPERPLASTIC POLYP C. SPLENIC FLEXURE POLYP: ----TUBULAR ADENOMA D. SIGMOID POLYP 40CM X2: ----TUBULAR ADENOMA ----HYPERPLASTIC POLYP E. SIGMOID POLYP 20CM: ----HYPERPLASTIC POLYP WITH FEATURES OF PROLAPSE Electronically Signed Out By ANA GARCIA MD/EFREM By the signature on this report, the individual or group listed as making the Final Interpretation/Diagnosis certifies that they have reviewed this case. Clinical History: POSITIVE COLO GUARD Specimens Submitted As: A: HEPATIC FLEXURE POLYP X2 B: MID TRANSVERSE COLON POLYP C: SPLENIC FLEXURE POLYP D: SIGMOID POLYP 40CM X2 E: SIGMOID POLYPS 20CM Gross Description: Received are 5 containers labeled with the patient's name. The specimen are received in formalin fixative. A. Received is one container designated hepatic flexure polyp ?2. The specimen consists of several pieces of singh soft tissue and fecal material. The specimen is 1 x 1 x 0.3 cm in aggregate. The specimen is submitted in toto in one cassette. B. Received is one container designated mid transverse colon polyp. The specimen consists of portions of singh soft tissue and fecal material 2.5 x 2 x 0.5 cm in aggregate. The specimen is submitted in toto in 2 cassettes. C. Received is one container designated splenic flexure polyp. The specimen consists of one portion of singh soft tissue 0.5 cm in greatest dimension as well as several portions of fecal material. The specimen is 1.5 x 1 x 0.2 cm in aggregate. The specimen is submitted in toto in one cassette. D. Received is one container designated sigmoid polyp 40 cm ?2. The specimen consists of 5 pieces of singh soft tissue as well as portions of fecal material. The largest portion of tissue is bisected. The specimen is submitted in toto in 2 cassettes. E. Received is one container designated sigmoid polyp 20 cm. The specimen consists of portions of singh soft tissue and fecal material 1.5 x 0.5 x 0.2 cm in aggregate. The specimen is submitted in toto in one cassette. jmj/09/09/2018 Normal [facility] History and Physical - Surge ry > 30 dayson 09-08-2018 History and Physical - Surgery > 30 days History of Present Illness: History Present Illness: Reason for surgery: positive cologard HPI: agree with h and p Allergies: Allergies: No Known Allergies: Home Medication Review: Home Medications Reviewed: yes Impression/Procedure: Impression and Planned Procedure: screening colon Vital Signs: Temperature C: 35.9 degrees C Temperature F: 96.6 degrees F Heart Rate: 71 beats per minute Respiratory Rate: 16 breath per minute Blood Pressure Systolic: 119 mm/Hg Blood Pressure Diastolic: 72 mm/Hg Physical Exam: Respiratory/Thorax: Patent airways, CTAB, normal breath sounds with good chest expansion, thorax symmetric Cardiovascular: Regular, rate and rhythm, no murmurs, 2+ equal pulses of the extremities, normal S 1and S 2 Signatures/Attestation/C ertification: Attending Provider Inpatient Certification StatementN/A - observation patient/other outpatient visits Electronic Signatures: Curt Sousa) (Signed 08-Sep-2018 12:33) Authored: History of Present Illness, Allergies, Home Medication Review, Impression/Procedure, Physical Exam, Signatures/Attestation/C ertification Last Updated: 08-Sep-2018 12:33 by Curt Sousa) Normal [facility] Preop Checkliston 09-08-2018 Preop Checklist Preop Checklist: Preop Checklist: Arrival [id number] Arrival Time10:52 Procedure TypeColonoscopy NPO [id number] 18:00 ID Band Onyes Allergy Bandno known allergies Consent Signedyes H&P Completepending Anesthesia Assessment Completedpending EKG Performedyes Chest X-Ray Performednot ordered HCG Urine TestN/A Chlorhexadine Bath Givennot applicable Hair Washednot applicable Soap and water bath with hair shampoo the night before surgerynot applicable SCD's Appliednot applicable ROLF Hose Appliednot ordered Dentureswith pt Prostheticsnot applicable Hearing Aidsnot applicable Valuables Securednot applicable Glasses / Contactsnot applicable Bowel Prepyes TypeMiralax Bowel Prep Completed as Instructedyes Stools Clearno Otherper pt watery, yellow Cardiovascular Assessment: Extremitieswarm Respiratory Assessment: Respirationsregular Neurological Assessment: Level of Consciousnessalert, oriented Mobilitymoves all extremities Able to Express Selfyes Age Appropriateyes Emotional Statuscalm Preop Education: Surgical Site Infection Preventionyes Pain Scales and Managementyes Language / Communication: Language / CommunicationEnglish Electronic Signatures: Vane Oh (RN) (Signed 08-Sep-2018 11:30) Authored: Preop Checklist Last Updated: 08-Sep-2018 11:30 by Vane Oh (SANA) Normal [facility] Patient Profile - Preop v2on 09-05-2018 Protein mass conc Profile: Initial Info: How to be AddressedChris Spoken Language PreferredEnglish Source of Informationpatient Are you currently using the Personal Electronic Health Record or [facility] Are you interested in learning more about [facility] for the management of your healthyes, information provided Stated Reason for AdmissionColonoscopy Primary Contact Name and NumberAllan Whaley - [phone], Father, he will be back at 1300 Patient Belongingsremains with patient Medications Brought to Hospitalno General Health: Weight in kg129.2 kilogram(s) Weight in fxf045 pound(s) Weight Methodstated Height in cm177.8 centimeter(s) Height in feet5 feet Height in bfknpa79 inch(es) Height Methodstated BMI (kg/m2)40.869 square meter Patient or Family Member Reaction to Anesthesiano previous reaction; no metals Tonsillectomy Blood Avoidance/Restrictionsno ne Previous Transfusion Reactionno Health Mgmt: Symptoms/Conditions Managed at Homecancer; musculoskeletal; respiratory; cardiovascular Cancer Symptoms/Conditionsskin Cancer Symptoms/Conditions Commentmelanoma off face Cardiovascular Symptoms/Conditionshyper tension Musculoskeletal Symptoms/Conditionsosteo arthritis Respiratory Symptoms/ConditionsCOPD; sleep disordered breathing Respiratory Management StrategiesBiPAP BiPAP Settingsunknown Respiratory Symptoms/Conditions Commentsleep apnea Barriers to Managing Healthnone Relationship/Environ: Resource/Environmental Concernsnone Services Anticipated at Transitionnone Lives Withparent(s) Living Arrangementshouse Anticipated Transition [place] Substance: Current or Former Substance Use never: e-Cigarette/Vaping, Alcohol, Street Drugs YES: Cigarette/Tobacco Tobacco Cessation Education (provide if tobacco use within the last 12 mos) patient declined Other Tobacco Use Commentssmoked 38 years 1/2 PP week at this time, trying to stop Risk Screens: Advance Directive Medicalno Advance Directive Mental Healthnot applicable During the past month, have you often been bothered by feeling down, depressed or hopelessno During the past month, have you often had little interest or pleasure in doing thingsno Have you had any thoughts of harming yourselfno Have you had any thoughts of harming anyone elseno Are you or have you been threatened or abused physically,emotionally or sexually abused by anyoneno Do you feel UNSAFE going back to the place you are livingno Patient is Able to be Assessed for Learningyes Factors Influencing Readiness to Learninterest in learning Factors that Impact Ability to Learnnone Devices/Methods Used to Communicatenone Learning Preferencesskill demonstration Cultural Considerationsnone Developmental Considerationsnone Taoist Considerationsnone Other learner availableno [place] RiskPatient location auto qualifies him/her for HIGH RISK. Are there any cultural, spiritual, holiness practices/values/needs that are important for us to knowno Pain Scalenumerical 0-10 Pain Scale Educationteaching provided Current Pain Level0 = None Acceptable Pain Level5 = Moderate Expression of Pain (nonverbal)none Lifestyle Changes/Adaptations in Response to Painno change Barriers to Reporting Painnone Chronic Painno Information Review: Allergies, Home Meds and Significant Events have been Reviewed and Verified with Patient/Familyyes Electronic Signatures: Vane Oh (SANA) (Signed 08-Sep-2018 11:35) Authored: Profile, Additional Information Barbara Farmer) (Signed 05-Sep-2018 10:45) Authored: Profile Last Updated: 08-Sep-2018 11:35 by Vane Oh) Normal [facility] Reporton 9 Sleep Lab Report [facility] NAME: ILDEFONSO ROCHA [facility] REC #: [id number] DATE OF : 1960 DATE OF SERVICE: 07/05/2018 ROOM: REFERRING PHYSICIAN: OPAL MEDINA MD STUDY TYPE: Split night polysomnogram. HISTORY OF CHIEF COMPLAINT: This is a 58-year-old male with a BMI of 44.48, who has a history of hypertension, asthma and COPD. He complains of restless sleep, snoring and witnessed apneas. His [place] Scale score prior to the test was 16 and his neck circumference was 48.5 cm. PROCEDURE: The overnight polysomnogram was performed recording the EEG, EOG, chin EMG, nasal oral airflow, nasal pressure monitor, thoracic and abdominal respiratory inductive plethysmography, EKG, anterior tibial EMG, pulse oximetry, video analysis and was continually attended. The study was reviewed in full to ensure the accuracy and quality of the data. Supplemental oxygen therapy was not administered. SLEEP ARCHITECTURE: This study began at 9:01 p.m. and ended at 5:18 a.m. Total sleep time was 393 minutes (6.6 hours). Wake during sleep was 91 minutes with a total wake time of 104.5 minutes. Sleep latency was 13 minutes with a REM latency of 87.5 minutes and a sleep efficiency of 79%. Sleep stages were as follows: N1 6%, N2 71%, N3 0% and REM sleep 23%. RESPIRATORY DATA: Mean SpO2 percentage was 92% with a jeanine of 71% and a maximum of 98%. The desaturation event index was 41.8 with 239 desaturation events recorded below 89% and 70.6 minutes spent with saturations below 89%. Prior to CPAP initiation, there was 1 central apnea, 4 obstructive apneas, 0 mixed apneas, and 88 hypopneas resulting in a total AHI of 56.94, which is in the severe category. The lowest SpO2 percentage was 71%. CPAP was initiated at 5 cm water and increased to 17 cm water. Central and mixed apneas started to appear along with the hypopneas. The patient was then switched to BiPAP for continued presence of central apneas and better tolerance to higher CPAP pressures. BiPAP was initiated at 18 IPAP/14 EPAP and increased to 20 IPAP, 16 EPAP. Central and mixed apneas persisted. At a pressure of 20 IPAP/16 EPAP, a backup rate of 10 was added. BiPAP then continued to be increased to 29 IPAP with 25 EPAP pressure. The patient appeared to tolerate BiPAP well. He did have some nasal congestion and it was noted that he stated he has always been a mouth breather. At 29 IPAP, 25 EPAP, there was 1 central apnea, 0 obstructive apneas, 0 mixed apneas, and 3 hypopneas for a total AHI of 12.11. The lowest SpO2 percentage at this pressure was 92%. The patient spent 19.81 minutes at this pressure with 13.81 minutes spent in REM sleep. LIMB MOVEMENT DATA: There were 47 total limb movements recorded with a PLM index of 7.2 and a limb movement with arousal index of 0.8. CARDIAC DATA: The mean heart rate was 74 beats per minute with a jeanine of 59 beats per minute and a maximum of 109 beats per minute. Normal sinus rhythm was maintained throughout. ASSESSMENT: Severe obstructive sleep apnea with successful BiPAP titration. CPAP was tried and proven ineffective. RECOMMENDATIONS: 1. Order BiPAP at 29 IPAP/25 EPAP with backup rate of 10. CPAP was tried and proven ineffective secondary to persistent central and obstructive apneas with poor tolerance of higher pressures. 2. Ordering AirTouch F20 medium mask. 3. Optimize weight management and avoid alcohol and sedative hypnotic medications. 4. The patient should refrain from driving or operating heavy machinery until his excessive daytime sleepiness is resolved on BiPAP. Sharona Vick DO DLE/MODL Dictated by: Sharona Vick DO SLEEP DISORDER LABORATORY Job: [id number] Electronic Signatures: Fallon Vick () (Signed on 09-Jul-2018 13:14) Authored [employer], [facility] (Non-Affiliated) (Entered on 09-Jul-2018 12:55) Entered Last Updated: 09-Jul-2018 13:14 by Fallon Vick () Normal [facility] Vital Signs Date Time Vital Sign Value Performing Clinician Facility 02-28-2024 09:46-0400 Body height 173.4 cm Opal Medina MD Work Phone: [facility] 02-28-2024 09:46-0400 Body mass index (BMI) [Ratio] 41.81 kg/m2 Opal Medina MD Work Phone: [facility] 02-28-2024 09:46-0400 Body weight 125.65 kg Opal Medina MD Work Phone: [facility] 02-28-2024 09:46-0400 Diastolic blood pressure 78 mm[Hg] Opal Medina MD Work Phone: [facility] 02-28-2024 09:46-0400 Heart rate 82 /min Opal Medina MD Work Phone: [facility] 02-28-2024 09:46-0400 SaO2% (BldA) [Mass fraction] 96 % Opal Medina MD Work Phone: [facility] 02-28-2024 09:46-0400 Systolic blood pressure 120 mm[Hg] Opal Medina MD Work Phone: [facility] 11-01-2023 09:50-0400 Body height 173.4 cm Opal Medina MD Work Phone: [facility] 11-01-2023 09:50-0400 Body mass index (BMI) [Ratio] 42.62 kg/m2 Opal Medina MD Work Phone: [facility] 11-01-2023 09:50-0400 Body weight 128.1 kg Opal Medina MD Work Phone: [facility] 11-01-2023 09:50-0400 Diastolic blood pressure 74 mm[Hg] Opal Medina MD Work Phone: [facility] 11-01-2023 09:50-0400 Heart rate 79 /min Opal Medina MD Work Phone: [facility] 11-01-2023 09:50-0400 SaO2% (BldA) [Mass fraction] 94 % Opal Medina MD Work Phone: [facility] 11-01-2023 09:50-0400 Systolic blood pressure 122 mm[Hg] Opal Medina MD Work Phone: [facility] 07-31-2023 15:20-0400 Body height 173.4 cm Opal Medina MD Work Phone: [facility] 07-31-2023 15:20-0400 Body mass index (BMI) [Ratio] 42.5 kg/m2 Opal Medina MD Work Phone: [facility] 07-31-2023 15:20-0400 Body weight 127.73 kg Opal Medina MD Work Phone: [facility] 07-31-2023 15:20-0400 Diastolic blood pressure 85 mm[Hg] Opal Medina MD Work Phone: [facility] 07-31-2023 15:20-0400 Heart rate 81 /min Opal Medina MD Work Phone: [facility] 07-31-2023 15:20-0400 SaO2% (BldA) [Mass fraction] 95 % Opal Medina MD Work Phone: [facility] 07-31-2023 15:20-0400 Systolic blood pressure 125 mm[Hg] Opal Medina MD Work Phone: [facility] 07-05-2023 10:33-0500 Body height 173.4 cm Opal Medina MD Work Phone: [facility] 07-05-2023 10:33-0500 Body mass index (BMI) [Ratio] 41.87 kg/m2 Opal Medina MD Work Phone: [facility] 07-05-2023 10:33-0500 Body weight 125.83 kg Opal Medina MD Work Phone: [facility] 07-05-2023 10:33-0500 Diastolic blood pressure 72 mm[Hg] Opal Medina MD Work Phone: [facility] 07-05-2023 10:33-0500 Heart rate 80 /min Opal Medina MD Work Phone: [facility] 07-05-2023 10:33-0500 SaO2% (BldA) [Mass fraction] 95 % Opal Medina MD Work Phone: [facility] 07-05-2023 10:33-0500 Systolic blood pressure 116 mm[Hg] Opal Medina MD Work Phone: [facility] 01-26-2023 20:07-0400 Blood Pressure Cuff Size DR SADIA COLEMAN MD [facility] 01-26-2023 20:07-[address] SADIA COLEMAN MD [facility] 01-26-2023 20:07-[address] SADIA COLEMAN MD [facility] 01-26-2023 20:07-0400 Body temperature 97.7 [degF] DR SADIA COLEMAN MD [facility] 01-26-2023 20:07-0400 Diastolic Blood Pressure Non-Invasive [address] SADIA COLEMAN MD [facility] 01-26-2023 20:07-0400 Heart rate 77 /min DR SADIA COLEMAN MD [facility] 01-26-2023 20:07-0400 Respiratory rate 18 /min DR SADIA COLEMAN MD [facility] 01-26-2023 20:07-0400 Systolic Blood Pressure Non-Invasive [address] SADIA COLEMAN MD [facility] 01-16-2023 12:01-0400 Body temperature 97.88 [degF] DR GRICELDA OLIVER MD [facility] 01-16-2023 12:01-0400 Diastolic Blood Pressure Non-Invasive [address] GRICELDA OLIVER MD [facility] 01-16-2023 12:01-0400 Heart rate 76 /min DR GRICELDA OLIVER MD [facility] 01-16-2023 12:01-0400 Reason For Taking VItal Signs DR GRICELDA OLIVER MD [facility] 01-16-2023 12:01-0400 Respiratory rate 16 /min DR GRICELDA OLIVER MD [facility] 01-16-2023 12:01-0400 Systolic Blood Pressure Non-Invasive [address] GRICELDA OLIVER MD [facility] 01-16-2023 11:33-0400 Body temperature 97.7 [degF] DR GRICELDA OLIVER MD [facility] 01-16-2023 11:33-0400 Diastolic Blood Pressure Non-Invasive [address] GRICELDA OLIVER MD [facility] 01-16-2023 11:33-0400 Heart rate 75 /min DR GRICELDA OLIVER MD [facility] 01-16-2023 11:33-0400 Reason For Taking VItal Signs DR GRICELDA OLIVER MD [facility] 01-16-2023 11:33-0400 Systolic Blood Pressure Non-Invasive [address] GRICELDA OLIVER MD [facility] 01-16-2023 08:05-0400 Body temperature 97.52 [degF] DR GRICELDA OLIVER MD [facility] 01-16-2023 08:05-0400 Diastolic Blood Pressure Non-Invasive [address] GRICELDA OLIVER MD [facility] 01-16-2023 08:05-0400 Heart rate 63 /min DR GRICELDA OLIVER MD [facility] 01-16-2023 08:05-0400 Reason For Taking VItal Signs DR GRICELDA OLIVER MD [facility] 01-16-2023 08:05-0400 Respiratory rate 16 /min DR GRIECLDA OLIVER MD [facility] 01-16-2023 08:05-0400 Systolic Blood Pressure Non-Invasive [address] GRICELDA OLIVER MD [facility] 01-16-2023 04:20-0400 Heart rate 84 /min DR GRICELDA OLIVER MD [facility] 01-16-2023 04:20-0400 Respiratory rate 16 /min DR GRICELAD OLIVER MD [facility] 01-15-2023 14:34-0400 Heart rate 76 /min DR GRICELDA OLIVER MD [facility] 01-15-2023 11:15-0400 Heart rate 74 /min DR GRICELDA OLIVER MD [facility] 01-15-2023 10:08-0400 Body height 172.[address] GRICELDA OLIVER MD [facility] 01-15-2023 10:08-0400 Body weight [address] GRICELDA OLIVER MD [facility] 01-15-2023 10:08-0400 Body weight 39.9 kg/m2 DR GRICELDA OLIVER MD [facility] 01-15-2023 08:55-0400 Body temperature 97.52 [degF] DR GRICELDA OLIVER MD [facility] 01-15-2023 08:45-0400 Respiratory Rate - Anes 6 br/min DR GRICELDA OLIVER MD [facility] 01-15-2023 08:40-0400 Respiratory Rate - Anes 15 br/min DR GRICELDA OLIVER MD [facility] 01-15-2023 08:35-0400 Respiratory Rate - Anes 14 br/min DR GRICELDA OLIVER MD [facility] 01-15-2023 08:30-0400 Body temperature 96.8 [degF] DR GRICELDA OLIVER MD [facility] 01-15-2023 08:15-0400 Body temperature 96.8 [degF] DR GRICELDA OLIVER MD [facility] 01-15-2023 05:40-0400 Body height 172.[address] GRICELDA OLIVER MD [facility] 01-15-2023 05:40-0400 Body temperature 98.06 [degF] DR GRICELDA OLIVER MD [facility] 01-15-2023 05:40-0400 Body weight [address] GRICELDA OLIVER MD [facility] 12-24-2022 10:36-0400 Body height 174 cm Opal Medina MD Work Phone: [facility] 12-24-2022 10:36-0400 Body mass index (BMI) [Ratio] 40.28 kg/m2 Opal Medina MD Work Phone: [facility] 12-24-2022 10:36-0400 Body weight 121.93 kg Opal Medina MD Work Phone: [facility] 12-24-2022 10:36-0400 Diastolic blood pressure 61 mm[Hg] Opal Medina MD Work Phone: [facility] 12-24-2022 10:36-0400 Heart rate 82 /min Opal Medina MD Work Phone: [facility] 12-24-2022 10:36-0400 SaO2% (BldA) [Mass fraction] 97 % Opal Medina MD Work Phone: [facility] 12-24-2022 10:36-0400 Systolic blood pressure 101 mm[Hg] Opal Medina MD Work Phone: [facility] 12-17-2022 08:40-[address] GRICELDA OLIVER MD [facility] 12-17-2022 08:40-[address] GRICELDA OLIVER MD [facility] 12-17-2022 08:40-0400 Body height 172.[address] GRICELDA OLIVER MD [facility] 12-17-2022 08:40-0400 Body weight [address] GRICELDA OLIVER MD [facility] 12-17-2022 08:40-0400 Body weight 39.9 kg/m2 DR GRICELDA OLIVER MD [facility] 12-17-2022 08:40-0400 Diastolic Blood Pressure Non-Invasive [address] GRICELDA OLIVER MD [facility] 12-17-2022 08:40-0400 Heart rate 90 /min DR GRICELDA OLIVER MD [facility] 12-17-2022 08:40-0400 Respiratory rate 18 /min DR GRICELDA OLIVER MD [facility] 12-17-2022 08:40-0400 Systolic Blood Pressure Non-Invasive [address] GRICELDA OLIVER MD [facility] 10-30-2022 11:31-0400 Body height 174 cm Opal Medina MD Work Phone: [facility] 10-30-2022 11:31-0400 Body mass index (BMI) [Ratio] 40.88 kg/m2 Opal Medina MD Work Phone: [facility] 10-30-2022 11:31-0400 Body weight 123.74 kg Opal Medina MD Work Phone: [facility] 10-30-2022 11:31-0400 Diastolic blood pressure 66 mm[Hg] Opal Medina MD Work Phone: [facility] 10-30-2022 11:31-0400 Heart rate 83 /min Opal Medina MD Work Phone: [facility] 10-30-2022 11:31-0400 SaO2% (BldA) [Mass fraction] 95 % Opal Medina MD Work Phone: [facility] 10-30-2022 11:31-0400 Systolic blood pressure 117 mm[Hg] Opal Medina MD Work Phone: [facility] 07-31-2022 13:21-0400 Diastolic blood pressure 66 mm[Hg] Opal Medina MD Work Phone: [facility] 07-31-2022 13:21-0400 Systolic blood pressure 132 mm[Hg] Opal Medina MD Work Phone: [facility] 07-31-2022 10:39-0400 Body height 177.8 cm Opal Medina MD Work Phone: [facility] 07-31-2022 10:39-0400 Body mass index (BMI) [Ratio] 40.69 kg/m2 Opal Medina MD Work Phone: [facility] 07-31-2022 10:39-0400 Body weight 128.64 kg Opal Medina MD Work Phone: [facility] 07-31-2022 10:39-0400 Heart rate 84 /min Opal Medina MD Work Phone: [facility] 07-31-2022 10:39-0400 SaO2% (BldA) [Mass fraction] 97 % Opal Medina MD Work Phone: [facility] 07-11-2022 12:02-0500 Body temperature 97.34 [degF] DR GRICELDA OLIVER MD [facility] 07-11-2022 12:02-0500 Diastolic Blood Pressure Non-Invasive [address] GRICELDA OLIVER MD [facility] 07-11-2022 12:02-0500 Heart rate 78 /min DR GRICELDA OLIVER MD [facility] 07-11-2022 12:02-0500 Reason For Taking VItal Signs DR GRICELDA OLIVER MD [facility] 07-11-2022 12:02-0500 Respiratory rate 14 /min DR GRICELDA OLIVER MD [facility] 07-11-2022 12:02-0500 Systolic Blood Pressure Non-Invasive [address] GRICELDA OLIVER MD [facility] 07-11-2022 07:48-0500 Blood Pressure Cuff Size DR GRICELDA OLIVER MD [facility] 07-11-2022 07:48-[address] GRICELDA OLIVER MD [facility] 07-11-2022 07:48-[address] GRICELDA OLIVER MD [facility] 07-11-2022 07:48-0500 Body temperature 97.88 [degF] DR GRICELDA OLIVER MD [facility] 07-11-2022 07:48-0500 Diastolic Blood Pressure Non-Invasive [address] GRICELDA OLIVER MD [facility] 07-11-2022 07:48-0500 Heart rate 81 /min DR GRICELDA OLIVER MD [facility] 07-11-2022 07:48-0500 Reason For Taking VItal Signs DR GRICELDA OLIVER MD [facility] 07-11-2022 07:48-0500 Respiratory rate 14 /min DR GRICELDA OLIVER MD [facility] 07-11-2022 07:48-0500 Systolic Blood Pressure Non-Invasive [address] GRICELDA OLIVER MD [facility] 07-11-2022 07:24-0500 Heart rate 71 /min DR GRICELDA OLIVER MD [facility] 07-11-2022 07:24-0500 Respiratory rate 18 /min DR GRICELDA OLIVER MD [facility] 07-11-2022 06:17-0500 Body temperature 97.34 [degF] DR GRICELDA OLIVER MD [facility] 07-11-2022 06:17-0500 Diastolic Blood Pressure Non-Invasive [address] GRICELDA OLIVER MD [facility] 07-11-2022 06:17-0500 Reason For Taking VItal Signs DR GRICELDA OLIVER MD [facility] 07-11-2022 06:17-0500 Systolic Blood Pressure Non-Invasive [address] GRICELDA OLIVER MD [facility] 07-10-2022 10:19-0500 Mean blood pressure 87 mm[Hg] DR GRICELDA OLIVER MD [facility] 07-10-2022 09:49-0500 Body height 172.[address] GRICELDA OLIVER MD [facility] 07-10-2022 09:49-0500 Body weight 126.[address] GRICELDA OLIVER MD [facility] 07-10-2022 09:49-0500 Body weight 42.48 kg/m2 DR GRICELDA OLIVER MD [facility] 07-10-2022 08:41-0500 Body temperature 97.52 [degF] DR GRICELDA OLIVER MD [facility] 07-10-2022 08:35-0500 Respiratory Rate - Anes 15 br/min DR GRICELDA OLIVER MD [facility] 07-10-2022 08:30-0500 Respiratory Rate - Anes 16 br/min DR GRICELDA OLIVER MD [facility] 07-10-2022 08:25-0500 Respiratory Rate - Anes 15 br/min DR GRICELDA OLIVER MD [facility] 07-10-2022 05:46-0500 Body height 172.[address] GRICELDA OLIVER MD [facility] 07-10-2022 05:46-0500 Body temperature 97.52 [degF] DR GRICELDA OLIVER MD [facility] 07-10-2022 05:46-0500 Body weight 126.[address] GRICELDA OLIVER MD [facility] 07-10-2022 05:46-0500 Heart rate 74 /min DR GRICELDA OLIVER MD [facility] 07-05-2022 14:58-0500 Diastolic blood pressure 78 mm[Hg] Opal Medina Work Phone: [facility] Work Phone: 07-05-2022 14:58-0500 Systolic blood pressure 130 mm[Hg] Opal Medina Work Phone: [facility] Work Phone: 07-05-2022 14:45-0500 Body height 177.8 cm Opal Medina Work Phone: [facility] Work Phone: 07-05-2022 14:45-0500 Body mass index (BMI) [Ratio] 40.24 kg/m2 Opal Medina Work Phone: [facility] Work Phone: 07-05-2022 14:45-0500 Body surface area Derived from formula 2.41 m2 Opal M Adam Work Phone: [facility] Work Phone: 07-05-2022 14:45-0500 Body weight 127.21 kg Opal Medina Work Phone: [facility] Work Phone: 07-05-2022 14:45-0500 Diastolic blood pressure 87 mm[Hg] Opal Medina Work Phone: [facility] Work Phone: 07-05-2022 14:45-0500 Heart rate 91 /min Opal Medina Work Phone: [facility] Work Phone: 07-05-2022 14:45-0500 SaO2% (BldA) [Mass fraction] 96 % Opal Medina Work Phone: [facility] Work Phone: 07-05-2022 14:45-0500 Systolic blood pressure 134 mm[Hg] Opal Medina Work Phone: [facility] Work Phone: 07-02-2022 10:02-0500 Body height 172.[address] GRICELDA OLIVER MD [facility] 07-02-2022 10:02-0500 Body weight 126.[address] GRICELDA OLIVER MD [facility] 05-25-2022 09:51-0500 Body height 177.8 cm Opal Medina Work Phone: [facility] Work Phone: 05-25-2022 09:51-0500 Body mass index (BMI) [Ratio] 39.67 kg/m2 Opal Medina Work Phone: [facility] Work Phone: 05-25-2022 09:51-0500 Body surface area Derived from formula 2.4 m2 Opal Medina Work Phone: [facility] Work Phone: 05-25-2022 09:51-0500 Body weight 125.42 kg Opal Medina Work Phone: [facility] Work Phone: 05-25-2022 09:51-0500 Diastolic blood pressure 77 mm[Hg] Opal Medina Work Phone: [facility] Work Phone: 05-25-2022 09:51-0500 Heart rate 76 /min Opal Medina Work Phone: [facility] Work Phone: 05-25-2022 09:51-0500 SaO2% (BldA) [Mass fraction] 98 % Opal Medina Work Phone: [facility] Work Phone: 05-25-2022 09:51-0500 Systolic blood pressure 123 mm[Hg] Opal Medina Work Phone: [facility] Work Phone: 03-30-2022 09:56-0500 Diastolic blood pressure 76 mm[Hg] Opal Medina Work Phone: [facility] Work Phone: 03-30-2022 09:56-0500 Systolic blood pressure 118 mm[Hg] Opal Medina Work Phone: [facility] Work Phone: 03-30-2022 09:45-0500 Body mass index (BMI) [Ratio] 40.11 kg/m2 Opal Medina Work Phone: [facility] Work Phone: 03-30-2022 09:45-0500 Body surface area Derived from formula 2.41 m2 Opal Medina Work Phone: [facility] Work Phone: 03-30-2022 09:45-0500 Body weight 126.81 kg Opal Medina Work Phone: [facility] Work Phone: 03-30-2022 09:45-0500 Diastolic blood pressure 88 mm[Hg] Opal Medina Work Phone: [facility] Work Phone: 03-30-2022 09:45-0500 Heart rate 83 /min Opal Medina Work Phone: [facility] [employer] Work Phone: 03-30-2022 09:45-0500 SaO2% (BldA) [Mass fraction] 99 % Opal Medina Work Phone: [facility] [employer] Work Phone: 03-30-2022 09:45-0500 Systolic blood pressure 134 mm[Hg] Opal Medina Work Phone: [facility] [employer] Work Phone: 12-07-2021 15:45-0400 Body mass index (BMI) [Ratio] 41.22 kg/m2 Opal Medina Work Phone: [facility] [employer] Work Phone: 12-07-2021 15:45-0400 Body surface area Derived from formula 2.43 m2 Opal Medina Work Phone: [facility] Work Phone: 12-07-2021 15:45-0400 Body weight 130.3 kg Opal Medina Work Phone: [facility] [employer] Work Phone: 12-07-2021 15:45-0400 Diastolic blood pressure 80 mm[Hg] Opal Medina Work Phone: [facility] Work Phone: 12-07-2021 15:45-0400 Heart rate 71 /min Opal Medina Work Phone: [facility] Work Phone: 12-07-2021 15:45-0400 SaO2% (BldA) [Mass fraction] 99 % Opal Medina Work Phone: [facility] Work Phone: 12-07-2021 15:45-0400 Systolic blood pressure 125 mm[Hg] Opal Medina Work Phone: [facility] Work Phone: 07-14-2021 10:04-0500 Body mass index (BMI) [Ratio] 42.54 kg/m2 Opal Medina Work Phone: SD-Ntkbqngpgvck-Dq sman [address] Work Phone: 07-14-2021 10:04-0500 Body surface area Derived from formula 2.47 m2 Opal Medina Work Phone: ZH-Araboxwvgttu-Lq sman [address] Work Phone: 07-14-2021 10:04-0500 Body weight 134.49 kg Opal Medina Work Phone: DA-Nhipyasqzwgh-Xw sman [address] Work Phone: 07-14-2021 10:04-0500 Diastolic blood pressure 73 mm[Hg] Opal Medina Work Phone: TE-Duvzsggzxqwn-Zv sman [address] Work Phone: 07-14-2021 10:04-0500 Heart rate 82 /min Opal Medina Work Phone: QC-Hiprbcfdbacy-Gf sman [address] Work Phone: 07-14-2021 10:04-0500 SaO2% (BldA) [Mass fraction] 99 % Opal Medina Work Phone: DE-Zwkvrkennhrq-Vn sman [address] Work Phone: 07-14-2021 10:04-0500 Systolic blood pressure 118 mm[Hg] Opal Medina Work Phone: CN-Qfwmeswjbeaw-Wp sman [address] Work Phone: 06-30-2021 10:50-0500 Body mass index (BMI) [Ratio] 42.76 kg/m2 Opal Medina Work Phone: RM-Ntzlvzdgje-[place] n [id number] Work Phone: 06-30-2021 10:50-0500 Body surface area Derived from formula 2.47 m2 Opal Medina Work Phone: ZB-Rvnyaouopr-Wvgg n [id number] Work Phone: 06-30-2021 10:50-0500 Body weight 135.17 kg Opal Medina Work Phone: TA-Kqdukbpott-Rgea n [id number] Work Phone: 06-30-2021 10:50-0500 Diastolic blood pressure 78 mm[Hg] Opal Medina Work Phone: ZU-Hkuiflitri-Glhh n [id number] Work Phone: 06-30-2021 10:50-0500 Heart rate 91 /min Opal Medina Work Phone: NU-Skhcmdjvkf-Zdko n [id number] Work Phone: 06-30-2021 10:50-0500 Systolic blood pressure 168 mm[Hg] Opal Medina Work Phone: BJ-Rzlgctmifl-Bfaz n [id number] Work Phone: 06-27-2021 07:46-0500 Body temperature 97.34 [degF] AVELINA CHAPA APRN-PACKAGING TECHNICIAN [facility] 06-27-2021 07:46-0500 Diastolic blood pressure 78 mm[Hg] AVELINA CHAPA APPLICATION INTEGRATION SPECIALIST-PACKAGING TECHNICIAN [facility] 06-27-2021 07:46-0500 Heart rate 65 /min AVELINA CHAPA APPLICATION INTEGRATION SPECIALIST-PACKAGING TECHNICIAN [facility] 06-27-2021 07:46-0500 Reason For Taking VItal Signs AVELINA CHAPA APPLICATION INTEGRATION SPECIALIST-PACKAGING TECHNICIAN [facility] 06-27-2021 07:46-0500 Respiratory rate 20 /min AVELINA CHAPA APPLICATION INTEGRATION SPECIALIST-PACKAGING TECHNICIAN [facility] 06-27-2021 07:46-0500 Systolic blood pressure 144 mm[Hg] AVELINA CHAPA APPLICATION INTEGRATION SPECIALIST-PACKAGING TECHNICIAN [facility] 06-27-2021 03:23-0500 Body temperature 98.24 [degF] AVELINA CHAPA APPLICATION INTEGRATION SPECIALIST-PACKAGING TECHNICIAN [facility] 06-27-2021 03:23-0500 Diastolic blood pressure 83 mm[Hg] AVELINA CHAPA APPLICATION INTEGRATION SPECIALIST-PACKAGING TECHNICIAN [facility] 06-27-2021 03:23-0500 Heart rate 65 /min AVELINA CHAPA APPLICATION INTEGRATION SPECIALIST-PACKAGING TECHNICIAN [facility] 06-27-2021 03:23-0500 Mean blood pressure 101 mm[Hg] AVELINA CHAPA APPLICATION INTEGRATION SPECIALIST-PACKAGING TECHNICIAN [facility] 06-27-2021 03:23-0500 Reason For Taking VItal Signs AVEILNA CHAPA APRN-PACKAGING TECHNICIAN [facility] 06-27-2021 03:23-0500 Respiratory rate 20 /min AVELINA CHAPA APPLICATION INTEGRATION SPECIALIST-PACKAGING TECHNICIAN [facility] 06-27-2021 03:23-0500 Systolic blood pressure 136 mm[Hg] AVELINA CHAPA APPLICATION INTEGRATION SPECIALIST-PACKAGING TECHNICIAN [facility] 06-26-2021 20:02-0500 Body temperature 97.88 [degF] AVELINA CHAPA APPLICATION INTEGRATION SPECIALIST-PACKAGING TECHNICIAN [facility] 06-26-2021 20:02-0500 Diastolic blood pressure 94 mm[Hg] AVELINA CHAPA APPLICATION INTEGRATION SPECIALIST-PACKAGING TECHNICIAN [facility] 06-26-2021 20:02-0500 Heart rate 76 /min AVELINA CHAPA APPLICATION INTEGRATION SPECIALIST-PACKAGING TECHNICIAN [facility] 06-26-2021 20:02-0500 Mean blood pressure 111 mm[Hg] AVELINA CHAPA APPLICATION INTEGRATION SPECIALIST-PACKAGING TECHNICIAN [facility] 06-26-2021 20:02-0500 Reason For Taking VItal Signs AVELINA CHAPA APPLICATION INTEGRATION SPECIALIST-PACKAGING TECHNICIAN [facility] 06-26-2021 20:02-0500 Respiratory rate 18 /min AVELINA FOITH APPLICATION INTEGRATION SPECIALIST-PACKAGING TECHNICIAN [facility] 06-26-2021 20:02-0500 Systolic blood pressure 145 mm[Hg] AVELINA FOITH APPLICATION INTEGRATION SPECIALIST-PACKAGING TECHNICIAN [facility] 06-26-2021 04:27-0500 Heart rate 71 /min AVELINA FOITH APPLICATION INTEGRATION SPECIALIST-PACKAGING TECHNICIAN [facility] 06-25-2021 19:51-0500 Heart rate 70 /min AVELINA FOITH APPLICATION INTEGRATION SPECIALIST-PACKAGING TECHNICIAN [facility] 06-24-2021 19:36-0500 Body height 177 cm AVELINA FOITH APPLICATION INTEGRATION SPECIALIST-PACKAGING TECHNICIAN [facility] 06-24-2021 19:36-0500 Body weight 130 kg AVELINA FOITH APPLICATION INTEGRATION SPECIALIST-PACKAGING TECHNICIAN [facility] 06-24-2021 19:36-0500 Body weight 41.5 kg/m2 AVELINA FOITH APPLICATION INTEGRATION SPECIALIST-PACKAGING TECHNICIAN [facility] 06-24-2021 19:31-0500 Heart rate 82 /min AVELINA FOITH APPLICATION INTEGRATION SPECIALIST-PACKAGING TECHNICIAN [facility] 02-17-2021 10:52-0400 Body height 177.8 cm Opal Medina Work Phone: [facility] Work Phone: 02-17-2021 10:52-0400 Body mass index (BMI) [Ratio] 42.47 kg/m2 Opal Medina Work Phone: [facility] Work Phone: 02-17-2021 10:52-0400 Body surface area Derived from formula 2.47 m2 Opal Medina Work Phone: [facility] Work Phone: 02-17-2021 10:52-0400 Body weight 134.27 kg Opal Medina Work Phone: [facility] Work Phone: 02-17-2021 10:52-0400 Diastolic blood pressure 79 mm[Hg] Opal Medina Work Phone: [facility] Work Phone: 02-17-2021 10:52-0400 Heart rate 71 /min Opal Medina Work Phone: [facility] Work Phone: 02-17-2021 10:52-0400 Respiratory rate 18 /min Opal Medina Work Phone: [facility] Work Phone: 02-17-2021 10:52-0400 Systolic blood pressure 119 mm[Hg] Opal Medina Work Phone: [facility] Work Phone: 09-21-2019 16:55-0400 BMI (Body Mass Index) 43.59 kg/m2 Opal Medina [facility] Work Phone: 09-21-2019 16:55-0400 Body weight 137.8 kg Opal Medina [facility] Work Phone: 09-21-2019 16:55-0400 BP Diastolic 90 mm[Hg] Opal Medina [facility] Work Phone: 09-21-2019 16:55-0400 BP Systolic 130 mm[Hg] [facility] 09-21-2019 16:55-0400 BSA (Body Surface Area) 2.49 m2 [facility]: 09-21-2019 16:55-0400 Pulse (Heart Rate) 84 /min [facility]: 05-22-2019 11:08-0500 BMI (Body Mass Index) 42.36 kg/m2 [facility]: 05-22-2019 11:08-0500 Body weight 133.93 kg [facility] Med[facility]: 05-22-2019 11:08-0500 BP Diastolic 80 mm[Hg] [facility]: 05-22-2019 11:08-0500 BP Systolic 130 mm[Hg] [facility]: 05-22-2019 11:08-0500 BSA (Body Surface Area) 2.46 m2 [facility]: 05-22-2019 11:08-0500 Pulse (Heart Rate) 88 /min [facility]: 05-08-2019 15:25-0500 BMI (Body Mass Index) 43.05 kg/m2 Opal Wongon [facility] Work Phone: 05-08-2019 15:25-0500 Body Temperature 98.4 [degF] Opal Medina [facility] Work Phone: 05-08-2019 15:25-0500 Body weight 136.08 kg Opal Medina [facility] Work Phone: 05-08-2019 15:25-0500 BP Diastolic 86 mm[Hg] Opal Medina [facility] Work Phone: 05-08-2019 15:25-0500 BP Systolic 133 mm[Hg] Opal Medina [facility] Work Phone: 05-08-2019 15:25-0500 BSA (Body Surface Area) 2.48 m2 Opal Medina [facility] Work Phone: 05-08-2019 15:25-0500 Height 177.8 cm Opal Medina [facility] Work Phone: 05-08-2019 15:25-0500 Pulse (Heart Rate) 86 /min Opal Medina [facility] Work Phone: 05-08-2019 15:25-0500 Respiratory Rate 20 /min Opal Medina [facility] Work Phone: 05-08-2019 15:25-0500 0 1 Opal Medina [facility] Work Phone: Comment on above: Pain Scale Encounters Encounter Date Encounter Type Care Provider Facility Start: 12-18-2024 ambulatory Pamela Hernandez Facility :[facility] Start: 11-30-2024 End: 11-30-[address] Pamela Hernandez [facility] Work Phone: Start: 11-30-2024 End: 11-30-2024 ambulatory Pamela Hernandez [facility] Start: 02-28-2024 End: 02-28-2024 Office outpatient visit 25 minutes Opal Medina MD Work Phone: [facility] Comment on above: Annual physical exam (Primary Dx); Flu vaccine need; Chronic obstructive pulmonary disease, unspecified COPD type (Multi); Acute deep vein thrombosis (DVT) of other specified vein of left lower extremity; Hypercholesterolemia; RLS (restless legs syndrome); Primary hypertension; Depression screen; Mixed hyperlipidemia; Vasovagal syncope; Vitamin D deficiency; Chronic right-sided low back pain with right-sided sciatica; RALPH (obstructive sleep apnea); Cigarette nicotine dependence with nicotine-induced disorder Start: 02-28-2024 End: 02-28-2024 Patient encounter procedure Opal Medina MD Work Phone: [facility] Work Phone: Start: 02-28-2024 End: 02-28-2024 ambulatory [facility] Start: 02-28-2024 End: 02-28-2024 Encounter for general adult medical examination without abnormal findings [facility] Start: 11-01-2023 End: 11-01-2023 Office outpatient visit 25 minutes Opal Medina MD Work Phone: [facility] Comment on above: Vasovagal syncope (P rimary Dx); Chronic obstructive pulmonary disease, unspecified COPD type (Multi); Acute deep vein thrombosis (DVT) of other specified vein of left lower extremity (Multi); Hypercholesterolemia; RLS (restless legs syndrome); Primary hypertension; Depression screen; Malignant melanoma, unspecified site (Multi); Malignant neoplasm of skin of face; Current moderate episode of major depressive disorder without prior episode (Multi); Acute right-sided low back pain with right-sided sciatica; Cigarette nicotine dependence with nicotine-induced disorder Start: 10-29-2023 End: 10-29-2023 ambulatory [facility] Start: 09-23-2023 End: 09-23-2023 Subsequent hospital visit by physician Tariq Zheng [facility] Comment on above: Vasovagal syncope; Syncope and collapse Start: 09-23-2023 End: 09-23-2023 ambulatory [facility] Start: 09-04-2023 End: 09-04-2023 Subsequent hospital visit by physician Nancy [address] [facility] Comment on above: Vasovagal syncope Start: 09-04-2023 End: 09-04-2023 ambulatory [facility] Start: 08-26-2023 End: 08-26-2023 ambulatory [facility] Start: 08-14-2023 End: 08-14-2023 Subsequent hospital visit by physician Med Echo/Stress [facility] Comment on above: Vasovagal syncope Start: 08-14-2023 End: 08-14-2023 ambulatory OPAL [facility] Start: 07-31-2023 End: 07-31-2023 Office outpatient visit 15 minutes Opal Medina MD Work Phone: [facility] Comment on above: Vasovagal syncope (P rimary Dx) Start: 07-05-2023 End: 07-05-2023 Office outpatient visit 25 minutes Opal Medina MD Work Phone: [facility] Comment on above: Acute swimmer's ear of left side (Primary Dx); Malignant melanoma of face excluding eyelid, nose, lip, and ear (CMS/HCC); Chronic obstructive pulmonary disease, unspecified COPD type ([facility]/HCC); Hypercholesterolemia; Chronic midline low back pain without sciatica; RLS (restless legs syndrome); Primary hypertension; Acute deep vein thrombosis (DVT) of proximal vein of left lower extremity ([facility]/HCC); Current moderate episode of major depressive disorder without prior episode ([facility]/HCC) Start: 07-01-2023 End: 07-01-2023 ambulatory OPAL [facility] Start: 07-01-2023 End: 07-01-2023 Encounter for general adult medical examination without abnormal findings [facility] Start: 01-26-2023 End: 01-26-2023 Emergency department patient visit DR SADIA COLEMAN MD Facility:B Start: 01-26-2023 End: 01-26-2023 Emergency department patient visit DR SADIA COLEMAN MD [facility] Start: 01-15-2023 End: 01-16-2023 ambulatory BECK PECK APPLICATION INTEGRATION SPECIALIST-PACKAGING TECHNICIAN Facility:B Start: 01-15-2023 End: 01-16-[address] GRICELDA OLIVER MD [facility] Start: 01-07-2023 End: 01-08-[address] OPAL MEDINA MD Facility:B Start: 01-07-2023 End: 01-07-[address] GRICELDA OLIVER MD [facility] Start: 12-24-2022 End: 12-24-2022 Office outpatient visit 25 minutes Opal Medina MD Work Phone: [facility] Comment on above: Chronic obstructive pulmonary disease, unspecified COPD type (CMS/HCC) (Primary Dx); Acute deep vein thrombosis (DVT) of other specified vein of left lower extremity (CMS/HCC); Depression screen; Primary hypertension; Acute deep vein thrombosis (DVT) of femoral vein of left lower extremity (CMS/HCC); Preop examination; Current moderate episode of major depressive disorder without prior episode (CMS/HCC); Arthritis of both knees Start: 12-24-2022 End: 11-01-2023 Preprocedural examination done Opal Medina MD Work Phone: [facility] Work Phone: Start: 12-17-2022 End: 12-18-[address] OPAL MEDINA MD Facility:B Start: 12-17-2022 End: 12-17-[address] GRICELDA OLIVER MD [facility] Start: 12-09-[address] OPAL MEDINA MD Fa cility:B Start: 10-30-2022 End: 10-30-2022 Office outpatient visit 25 minutes Opal Medina MD Work Phone: [facility] Comment on above: Depression screen (P rimary Dx); Acute deep vein thrombosis (DVT) of femoral vein of left lower extremity (CMS/HCC); Current moderate episode of major depressive disorder without prior episode (CMS/HCC); Arthritis of both knees Start: 07-31-2022 End: 07-31-2022 Office outpatient visit 25 minutes Opal Medina MD Work Phone: [facility] Comment on above: Acute deep vein thro mbosis (DVT) of other specified vein of left lower extremity (CMS/HCC) (Primary Dx); Arthritis of both knees; Primary hypertension; Acute deep vein thrombosis (DVT) of femoral vein of left lower extremity (CMS/HCC) Start: 07-23-2022 End: 07-24-[address] OPAL MEDINA MD Facility:B Start: 07-10-2022 End: 07-11-2022 ambulatory RAINE GARCIA APRN-PACKAGING TECHNICIAN Facility:B Start: 07-10-2022 End: 07-11-[address] GRICELDA OLIVER MD [facility] Start: 07-05-2022 Office outpatient vi sit 25 minutes Opal Medina [facility] Start: 07-05-[address] Opal Medina Facility:[id number] Start: 07-02-2022 End: 07-03-[address] OPAL MEDINA MD Facility:B Start: 07-02-2022 End: 07-03-[address] OPAL MEDINA MD Facility:B Start: 07-02-2022 End: 07-02-[address] GRICELDA OLIVER MD [facility] Start: 06-13-2022 Patient encounter procedure Opal Medina [facility] Start: 05-29-2022 End: 05-30-[address] OPAL MEDINA MD Facility:B Start: 05-25-[address] Opal Medina Facility:[id number] Start: 05-25-2022 Office outpatient vi sit 25 minutes Opal Medina [facility] Start: 05-25-[address] Opal Medina Facility:[id number] Start: 05-20-2022 Chart Update Opal Medina Work Phone: [facility] Work Phone: Start: 05-07-2022 End: 05-08-[address] OPAL MEDINA MD Facility:B Start: 05-07-2022 End: 05-07-2022 Patient encounter procedure ELISEO BRAXTON DO [facility] Start: 05-01-2022 AUDIT Opal Medina Work Phone: [facility] Work Phone: Start: 04-30-[address] OPAL MEDINA MD Fa cility:B Start: 04-27-2022 End: 04-28-[address] OPAL MEDINA MD Facility:B Start: 03-30-2022 FUV, Provider: Opal Medina, Status: Pen, Time: 10:00 AM Opal Medina Work Phone: [facility] Work Phone: Start: 03-30-2022 Office outpatient vi sit 25 minutes Opal Medina Work Phone: [facility] Work Phone: Start: 03-30-[address] Opal Medina Facility:[id number] Start: 03-28-2022 AUDIT Opal Medina Work Phone: [facility] Work Phone: Start: 01-18-[address] Gricelda Guardado Facility:[id number] Start: 01-18-2022 Office outpatient vi sit 25 minutes Opal Medina Work Phone: MB-Ogerouvtmofa-Kjdiv [address] Work Phone: Start: 12-07-2021 Office outpatient vi sit 25 minutes Opal Medina Work Phone: [facility] Work Phone: Start: 12-07-[address] Opal Wongon Facility:[id number] Start: 11-08-2021 Chart Update Opal Medina Work Phone: ZL-Ltqrgvhjavly-[place] [address] DO Work Phone: Start: 10-13-2021 Patient encounter procedure Opal Medina Work Phone: LY-Qhbilojskuvf-Nhuty a Work Phone: Start: 10-13-[address] Gricelda Guardado Facility:[id number] Start: 10-11-[address] Opal Medina Facility:[id number] Start: 07-14-2021 Patient encounter procedure Opal Medina Work Phone: AI-Dmtjqyhndolk-Lopwz n 210 Work Phone: Start: 07-14-[address] Opal Medina Facility:[id number] Start: 06-30-2021 Office outpatient vi sit 25 minutes Opal Medina Work Phone: QP-Qiedsegotp-Errgx [id number] Work Phone: Start: 06-24-2021 End: 06-27-2021 Observation [facility] Start: 04-14-2021 Patient encounter procedure Opal Medina Work Phone: XR-Aqbndjfnrhkd-Keilm a Work Phone: Start: 02-17-2021 Office outpatient vi sit 25 minutes Opal Medina Work Phone: [facility] Work Phone: Start: 01-13-2021 Patient encounter procedure Opal Medina Work Phone: GU-Dbogbdbgxlvb-Dsofm a Work Phone: Start: 09-21-2019 Patient encounter procedure Opal eMdina [facility] Work Phone: Start: 07-06-2019 Patient encounter procedure Opal Medina [facility] Work Phone: Start: 05-22-2019 Patient encounter procedure Opal Medina [facility] Work Phone: Start: 05-08-2019 Patient encounter procedure [facility]al [facility] Work Phone: Start: 02-02-2019 Patient encounter procedure Opal eMdina [facility] Work Phone: Start: 10-27-2018 Patient encounter procedure Opal Medina [facility] Work Phone: Start: 10-09-2018 Patient encounter procedure Opal Medina [facility] Work Phone: Start: 09-08-2018 End: 09-08-2018 Patient encounter procedure CURT SOUSA Facility:[facility] Start: 07-21-2018 Patient encounter procedure Opal Medina [facility] Work Phone: Start: 07-05-2018 End: 07-05-2018 Patient encounter procedure OPAL MEDINA [facility] Start: 06-09-2018 Patient encounter procedure Opal Medina [facility] Work Phone: Start: 04-19-2018 Patient encounter procedure Opal Medina [facility] Work Phone: Start: 01-31-2018 Patient encounter procedure Opal Medina [facility] Work Phone: Start: 09-20-2017 Patient encounter procedure Opal Medina [facility] Work Phone: Start: 09-16-2017 Patient encounter procedure Opal Medina [facility] Work Phone: Start: 09-12-2017 Patient encounter procedure Opal Medina [facility] Work Phone: Start: 05-17-2017 Patient encounter procedure Opal Medina [facility] Work Phone: Patient encounter status Opalyaya Medina Work Phone: [facility] Work Phone: Procedures Date Procedure Procedure Detail Performing Clinician Start: 10-29-2023 Lipid 1996 panel - S obdulia or Plasma Opal Medina MD Work Phone: Start: 09-23-2023 VASC US CAROTID JIM RY DUPLEX BILATERAL OPAL ADAM Start: 09-23-2023 Duplex scan extracra nial art compl bi study Opal Medina MD Work Phone: Start: 09-04-2023 CT HEAD WO IV CONTRAST OPAL MEDINA Start: 09-04-2023 Ct head/brain w/o co ntrast material Opal Medina MD Work Phone: Start: 08-26-2023 Comprehensive metabo lic 2000 panel - Serum or Plasma OPAL MEDINA Start: 08-26-2023 Magnesium [Mass/volu me] in Serum or Plasma OPAL MEDINA Start: 08-14-2023 TRANSTHORACIC ECHO ( TTE) LIMITED OPAL WONGON Start: 08-14-2023 Echo transthorc r-t 2d w/wo m-mode rec f-up/lmtd Opal Medina MD Work Phone: Start: 07-01-2023 CBC panel - Blood by Automated count OPAL ADAM Start: 07-01-2023 Comprehensive metabo lic 2000 panel - Serum or Plasma OPAL ADAM Start: 07-01-2023 Lipid panel OPAL YUSUF Start: 07-01-2023 TSH WITH REFLEX TO F REE T4 IF ABNORMAL OPAL MEDINA Start: 07-01-2023 VITAMIN D 25-HYDROXY,TOTAL OPAL MEDINA Start: 07-01-2023 Lipid 1996 panel - S obdulia or Plasma Opal Medina MD Work Phone: Start: 07-10-[address] GRICELDA OLIVER MD Comment on above: ROBOTIC ASSISTED LEF T KNEE ATHROPLASTY Start: 05-18-2022 Lipid 1996 panel - S obdulia or Plasma Opal Medina MD Work Phone: Start: 10-11-2021 Follow-up visit Start: 07-17-2021 Abscess (disorder) BOWEN MOLLY FOX DO Comment on above: I&D SCROTAL ABSCESS (OFFICE) Start: 02-08-2020 Colonoscopy Opal yusuf MD Work Phone: Start: 09-24-2019 Culture bacterial bl ood aerobic w/id isolates Opal Medina Start: 09-24-2019 Culture bacterial quanttative colony count urine Opal Medina Start: 09-24-2019 Urnls dip stick/tabl et rgnt auto w/o microscopy Opal Medina Start: 09-24-2019 Xray Chest 2 View PA + Lateral Opal Medina Start: 09-23-2019 C-reactive protein h igh sensitivity Opal Medina Start: 09-21-2019 Blood count complete auto&auto difrntl wbc Opal Medina Start: 09-08-[address] endoscopic px scr colsc Curt Sousa Start: 09-08-2018 Colsc flx w/rmvl of tumor polyp lesion snare tq Curt Sousa Excision of melanoma AVELINA CHAPA APPLICATION INTEGRATION SPECIALIST-PACKAGING TECHNICIAN Hernia repair Opal Medina Comment on above: bilat repaired after ; History of hernia repair SEHT CHAPA APPLICATION INTEGRATION SPECIALIST-PACKAGING TECHNICIAN Comment on above: occured as Plan of Treatment Date Care Activity Detail Author Start: 08-08-2030 DTaP/Tdap/Td Vaccine s (2 - Td or Tdap) DTaP/Tdap/Td Vaccines (2 - Td or Tdap) [facility] Start: 02-07-2030 Screening for malignant neoplasm of colon [facility] Start: 10-28-2028 Lipid panel Lipid Panel [facility] Start: 07-01-2028 Lipid panel Lipid Panel [facility] Start: 05-18-2027 Lipid panel Lipid Panel [facility] Start: 07-03-2024 End: 07-03-2024 Patient encounter procedure 07/03/2024 10:00 AM EST Office Visit [facility] [address] [place] [phone] Opal Medina MD [address] [facility], [address] [place] [address] [facility] Start: 05-18-2024 End: 08-28-2024 25-hydroxyvitamin D3 [Mass/volume] in Serum or Plasma Vitamin D 25-Hydroxy,Total (for eval of Vitamin D levels) Lab Routine Annual physical exam Expected: 05/18/2024, Expires: 08/28/2024 [facility] Work Phone: Comment on above: Expected: 05/18/2024 , Expires: 08/28/2024 Start: 05-18-2024 End: 02-27-2025 CBC panel - Blood by Automated count CBC Lab Routine Annual physical exam Expected: 05/18/2024, Expires: 02/27/2025 [facility] Work Phone: Comment on above: Expected: 05/18/2024 , Expires: 02/27/2025 Start: 05-18-2024 End: 08-28-2024 Comprehensive metabolic 2000 panel - Serum or Plasma Comprehensive metabolic panel Lab Routine Annual physical exam Expected: 05/18/2024, Expires: 08/28/2024 [facility] Work Phone: Comment on above: Expected: 05/18/2024 , Expires: 08/28/2024 Start: 05-18-2024 End: 08-28-2024 Lipid 1996 panel - Serum or Plasma Lipid panel Lab Routine Annual physical exam Expected: 05/18/2024, Expires: 08/28/2024 [facility] Work Phone: Comment on above: Expected: 05/18/2024 , Expires: 08/28/2024 Start: 05-18-2024 End: 08-28-2024 Tsh With Reflex To Free T4 If Abnormal Tsh With Reflex To Free T4 If Abnormal Lab Routine Annual physical exam Expected: 05/18/2024, Expires: 08/28/2024 [facility] Work Phone: Comment on above: Expected: 05/18/2024 , Expires: 08/28/2024 Start: 02-28-2024 End: 02-28-2024 Patient encounter procedure 02/28/2024 10:00 AM EDT Office Visit [facility] [address] [phone] Opal Medina MD [address] [facility], [facility] [address] [place], [place] [id number] [facility] Start: 01-12-2024 COVID-19 Vaccine () COVID-19 Vaccine () [facility] Start: 11-01-2023 End: 11-01-2023 Patient encounter procedure 11/01/2023 10:00 AM EDT Office Visit [facility] [address] [phone] Opal Medina MD [address] [facility], [facility] [address] [place], [place] [id number] [facility] Start: 10-03-2023 End: 07-05-2024 Hepatic function 2000 panel - Serum or Plasma Hepatic function panel Lab Routine Hypercholesterolemia Expected: 10/03/2023 (Approximate), Expires: 07/05/2024 [facility] Work Phone: Comment on above: Expected: 10/03/2023 (Approximate), Expires: 07/05/2024 Start: 10-03-2023 End: 07-05-2024 Lipid 1996 panel - Serum or Plasma Lipid panel Lab Routine Hypercholesterolemia Expected: 10/03/2023 (Approximate), Expires: 07/05/2024 [facility] Service Area Work Phone: Comment on above: Expected: 10/03/2023 (Approximate), Expires: 07/05/2024 Start: 09-23-2023 End: 09-23-2023 Patient encounter procedure 09/23/2023 11:00 AM EDT Appointment [facility] [address] [place] [phone] [facility] Start: 08-14-2023 End: 08-14-2023 Patient encounter procedure 08/14/2023 2:00 PM EDT Appointment [facility] [address] [place] [address] [facility] Start: 07-31-2023 End: 07-30-2025 US Heart Transthoracic Transthoracic Echo Limited Echocardiography Routine Vasovagal syncope Expected: 07/31/2023 (Approximate), Expires: 07/30/2025 [facility] Service Area Work Phone: Comment on above: Expected: 07/31/2023 (Approximate), Expires: 07/30/2025 Start: 03-24-2023 Pneumococcal Vaccine : Pediatrics (0 to 5 Years) and At-Risk Patients (6 to 64 Years) (2 - PCV) Pneumococcal Vaccine: Pediatrics (0 to 5 Years) and At-Risk Patients (6 to 64 Years) (2 - PCV) [facility] Start: 02-26-2023 End: 02-26-2023 Patient encounter procedure 02/26/2023 11:30 AM EDT Office Visit [facility] [address] [place] [phone] Opal Medina MD [address] [facility], [address] [place] [address] [facility] Start: 01-11-2023 COVID-19 Vaccine () COVID-19 Vaccine () [facility] Start: 01-11-2023 COVID-19 Vaccine ( season) COVID-19 Vaccine ( season) [facility] Start: 01-11-2023 Influenza vaccination Influenza Vacc ine (#1) [facility] Start: 11-26-2022 End: 11-26-2022 Patient encounter procedure 11/26/2022 11:30 AM EDT Office Visit [facility] [address] [place] [phone] Opal Medina MD [address] [facility], [facility] [address] [place] [address] [facility] Start: 10-30-2022 End: 10-30-2022 Patient encounter procedure 10/30/2022 11:30 AM EDT Office Visit [facility] [address] [place] [phone] Opal Medina MD [address] [facility], [facility] [address] [place] [address] [facility] Start: 08-15-2022 EPV, Provider: Opal Medina, Status: Pen, Time: 10:00 AM EPV, Provider: Opal Medina, Status: Pen, Time: 10:00 AM [facility] Start: 05-25-2022 EPV, Provider: Opal Medina, Status: Pen, Time: 10:00 AM EPV, Provider: Opal Medina, Status: Pen, Time: 10:00 AM [facility] Start: 05-19-2022 COVID-19 Vaccine (5 - Booster for Moderna series) COVID-19 Vaccine (5 - Booster for Moderna series) [facility] Start: 04-27-2022 INJECTION, Provider: Gricelda Guardado, Status: Pen, Time: 11:30 AM INJECTION, Provider: Gricelda Guardado, Status: Pen, Time: 11:30 AM JS-Ttkzvmtzoqew-I [address] Work Phone: Start: 2022 RSV High Risk: (Elderly (60+) or Population) (1 - Risk 60-74 years 1-dose series) RSV High Risk: (Elderly (60+) or Population) (1 - Risk 60-74 years 1-dose series) [facility] Start: 2022 RSV patient s and/or patients aged 60+ years (1 - 1-dose 60+ series) RSV patients and/or patients aged 60+ years (1 - 1-dose 60+ series) [facility] Start: 03-30-2022 FUV, Provider: Opal Medina, Status: Pen, Time: 10:00 AM FUV, Provider: Opal Medina, Status: Pen, Time: 10:00 AM [facility] Work Phone: Start: 01-18-2022 INJECTION, Provider: Gricelda Guardado, Status: Pen, Time: 4:30 PM INJECTION, Provider: Gricelda Guardado, Status: Pen, Time: 4:30 PM QH-Abulkbeluhvl-C [facility] [address] DO Work Phone: Start: 01-18-2022 INJECTION, Provider: Yuli Sparrow, Status: Pen, Time: 4:15 PM INJECTION, Provider: Yuli Sparrow, Status: Pen, Time: 4:15 PM -[facility] Work Phone: Start: 01-12-2022 INJECTION, Provider: Gricelda Guardado, Status: Pen, Time: 10:00 AM INJECTION, Provider: Gricelda Guardado, Status: Pen, Time: 10:00 AM NI-Hfevwgqyyqea-W radha Work Phone: Start: 10-13-2021 INJECTION, Provider: Gricelda Guardado, Status: Pen, Time: 9:50 AM INJECTION, Provider: Gricelda Guardado, Status: Pen, Time: 9:50 AM BA-Rtrsnjzhuvsh-Q [address] Work Phone: Start: 10-11-2021 EPV, Provider: Opal Medina, Status: Pen, Time: 10:00 AM EPV, Provider: Opal Medina, Status: Pen, Time: 10:00 AM BN-Maspcxewcqqn-A [address] Work Phone: Start: 07-14-2021 EPV, Provider: Opal Medina, Status: Pen, Time: 10:15 AM EPV, Provider: Opal Medina, Status: Pen, Time: 10:15 [place] [id number] Work Phone: Start: 07-14-2021 INJECTION, Provider: Gricelda Guardado, Status: Pen, Time: 9:40 AM INJECTION, Provider: Gricelda Guardado, Status: Pen, Time: 9:40 AM JS-Pokuuchvwwvl-O radha Work Phone: Start: 06-30-2021 Screening for malignant neoplasm of colon FIT-DNA (Cologuard) [facility] Start: 06-16-2021 FUV, Provider: Opal Medina, Status: Pen, Time: 10:30 AM FUV, Provider: Opal Medina, Status: Pen, Time: 10:30 AM [facility] Work Phone: Start: 04-14-2021 FUV, Provider: Gricelda Guardado, Status: Pen, Time: 9:50 AM FUV, Provider: Gricelda Guardado, Status: Pen, Time: 9:50 AM KX-Ofspkgpqlstk-D radha Work Phone: Start: 02-17-2021 FUV, Provider: Opal Medina, Status: Pen, Time: 10:30 AM FUV, Provider: Opal Medina, Status: Pen, Time: 10:30 AM FZ-Xfqfywsqyzdv-J radha Work Phone: Start: 09-24-2019 Xray Chest 2 V iew PA + Lateral -[facility] Work Phone: Start: 2012 Screening for malignant neoplasm of lung Lung Cancer Screening [facility] Start: 07-16-1999 Hepatitis B Vaccines (3 of 3 - 19+ 3-dose series) Hepatitis B Vaccines (3 of 3 - 19+ 3-dose series) [facility] Start: 07-13-1999 Hepatitis A Vaccines (2 of 2 - Risk 2-dose series) Hepatitis A Vaccines (2 of 2 - Risk 2-dose series) [facility] Start: 07-13-1999 Hepatitis B Vaccines (3 of 3 - 19+ 3-dose series) Hepatitis B Vaccines (3 of 3 - 19+ 3-dose series) [facility] Start: 1980 Diabetes mellitus screening Diabetes Screening [facility] Start: 1980 Hepatitis C screening Hepatitis C Sc reening [facility] Start: 1963 MMR Vaccines (1 of 1 - Standard series) MMR Vaccines (1 of 1 - Standard series) [facility] Start: 1962 Examination of skin Derm Melanoma Sk in Check [facility] Start: 1962 HIV screening HIV Screening [facility] Start: 1962 Screening for malignant neoplasm of colon [facility] Start: 1962 Yearly Adult Physical Yearly Adult P hysical [facility] Work Phone: NEGATED: Highlighted row has been ruled out! Planned Goals not documented [facility] Work Phone: Immunizations Immunization Date Immunization Notes Care Provider [facility] 02-28-2024 influenza, seasonal, injectable, preservative free Opal Medina MD Work Phone: [facility] Work Phone: 03-01-2023 influenza, injectabl e, quadrivalent, preservative free Opal Medina MD Work Phone: [facility] 03-24-2022 influenza virus vacc ine, unspecified formulation DR GRICELDA OLIVER MD [facility] 03-24-2022 influenza, injectabl e, quadrivalent, preservative free Opal Medina Work Phone: [facility] 03-24-2022 influenza, seasonal, injectable Opal Katie Medina Work Phone: [facility] Work Phone: Comment on above: Series: 03-24-2022 Moderna COVID-19 Biv al Booster 50 MCG/0.5ML Intramuscular Suspension Opal Katie Medina Work Phone: [facility] Comment on above: Series: 03-24-2022 Pfizer COVID-19 vacc ine, bivalent, age 5y-11y (10 mcg/0.2 mL) Opal Medina MD Work Phone: [facility] Work Phone: 03-24-2022 pneumococcal 20-josé miguel nt conjugate vaccine DR GRICELDA OLIVER MD [facility] 03-24-2022 pneumococcal polysaccharide vaccine, 23 valent Opal Medina [facility]: Comment on above: Series: 03-24-2022 Prevnar 20 0.5 ML Intramuscular Suspension Prefilled Syringe Opal Medina [facility]: 03-24-2022 SARS-CoV-2 (CV19)mRNA-[address] GRICELDA OLIVER MD [facility] 03-24-2022 SARSCoV2 (CV19)mRNA-1273(6y+ bival miguel DR GRICELDA OLIVER MD [facility] 09-24-2021 Moderna COVID-19 Vac cine 100 MCG/0.5ML Intramuscular Suspension Opal Medina Work Phone: [facility] 09-24-2021 zoster vaccine recombinant Opal Medina Work Phone: [facility] 05-03-2021 Moderna COVID-19 Vac cine 100 MCG/0.5ML Intramuscular Suspension Opal Medina Work Phone: [facility] 05-03-2021 zoster vaccine recombinant Opal Wilson Adam Work Phone: [facility] 02-17-2021 influenza virus vacc ine, unspecified formulation DR GRICELDA OLIVER MD [facility] 02-17-2021 influenza, injectabl e, quadrivalent, contains preservative; Translations: [Flulaval Quadrivalent Intramuscular Suspension] Opal Katie Adam Work Phone: [facility] Work Phone: Comment on above: Series: 02-17-2021 influenza, injectabl e, quadrivalent, preservative free Dr. Pamela Hernandez MD Work Phone: [facility] 02-17-2021 influenza, seasonal, injectable Opal Medina MD Work Phone: [facility] Work Phone: 09-15-2020 Moderna COVID-19 Vac cine 100 MCG/0.5ML Intramuscular Suspension Opal M Adam Work Phone: [facility] Comment on above: Result Comment: 2022: [id number] 08-10-2020 Moderna COVID-19 Vac cine 100 MCG/0.5ML Intramuscular Suspension Opal M Adam Work Phone: [facility] Comment on above: Result Comment: 2022: TPV50 08-08-2020 tetanus toxoid, redu elsa diphtheria toxoid, and acellular pertussis vaccine, adsorbed; Translations: [Boostrix (Tdap)] AVELINA VU [facility] 01-25-2020 influenza virus vacc ine, unspecified formulation DR GRICELDA OLIVER MD [facility] 01-25-2020 influenza, injectabl e, quadrivalent, preservative free; Translations: [Flulaval Quadrivalent 0.5 ML Intramuscular Suspension Prefilled Syringe] Opal Medina Work Phone: [facility] Comment on above: Series: 01-25-2020 influenza, seasonal, injectable Opal Medina MD Work Phone: [facility] Work Phone: 01-10-2019 influenza virus vacc ine, unspecified formulation DR GRICELDA OLIVER MD [facility] 01-10-2019 influenza, injectabl e, quadrivalent, preservative free Opal Medina Work Phone: [facility] 01-31-2018 influenza, injectabl e, quadrivalent, preservative free; Translations: [Flulaval Quadrivalent 0.5 ML Intramuscular Suspension Prefilled Syringe] Opal Medina [facility] Comment on above: Series: 01-31-2018 influenza virus vacc ine, unspecified formulation DR GRICELDA OLIVER MD [facility] 01-31-2018 influenza, seasonal, injectable Opal Medina MD Work Phone: [facility] Work Phone: 03-10-2017 influenza virus vacc ine, unspecified formulation DR GRICELDA OLIVER MD [facility] 03-10-2017 influenza, injectabl e, quadrivalent, preservative free Opal Medina Work Phone: [facility] 02-14-1999 hepatitis B vaccine, adult dosage Opal Medina Work Phone: [facility] 02-14-1999 influenza virus vacc ine, whole virus Opal Medina Work Phone: [facility] 02-14-1999 influenza, injectabl e, quadrivalent, preservative free Dr. Pamela Hernandez MD Work Phone: [facility] 01-12-1999 hepatitis A vaccine, pediatric/adolescent dosage, [address] Pamela Hernandez MD Work Phone: [facility] 01-12-1999 hepatitis A vaccine, unspecified formulation Opal Wilson Adam Work Phone: [facility] 01-12-1999 hepatitis B vaccine, adult dosage Opal Wongon Work Phone: [facility] 01-12-1999 hepatitis A and hepatitis B vaccine [address] Work Phone: Payers Date Payer Category Payer Self-pay 2024 Unknown [id number] 2023 [facility] (Private) [facility] [id number] 2023 Unknown 2023 Unknown [id number] 2018 Private Health Insurance [employer] A[employer] [facility] [id number] 2018-Present [address] [place] [address] [id number]. [id number] 2018 Private Health Insurance [id number] 1962 Unknown [id number] 2.16.840.1.502363.3.579.2. 662 1962 Unknown [id number] 2.16.840.1.659027.3.579.2. 355 1962 Unknown [id number] 2.16.840.1.237762.3.579.2. 1068 1962 Unknown [id number] 2.16.840.1.494791.3.579.2. 356 1962 Unknown [id number] 2.16.840.1.642104.3.579.2. 356 1962 Unknown [id number] 2.16.840.1.187398.3.579.2. 356 1962 Unknown [id number] 2.16.840.1.572934.3.579.2. 356 1962 Unknown [id number] 2.16.840.1.322482.3.579.2. 356 1962 Unknown [id number] 2.16.840.1.823077.3.579.2. 356 1962 Unknown [id number] 2.16.840.1.986853.3.579.2. 356 1962 Unknown [id number] 2.16.840.1.688106.3.579.2. 356 1962 Unknown [id number] 2.16.840.1.115246.3.579.2. 356 1962 Unknown [id number] 2.16.840.1.527962.3.579.2. 356 1962 Unknown [id number] 2.16.840.1.028441.3.579.2. 356 1962 Unknown [id number] 2.16.840.1.417344.3.579.2. 356 1962 Unknown [id number] 2.16.840.1.714338.3.579.2. 627 1962 Unknown [id number] 2.16.840.1.100633.3.579.2. 627 1962 Unknown [id number] 2.16.840.1.248623.3.579.2. 627 1962 Unknown [id number] 2.16.840.1.708105.3.579.2. 627 1962 Unknown [id number] 2.16.840.1.648012.3.579.2. 627 1962 Unknown [id number] 2.16.840.1.195405.3.579.2. 627 1962 Unknown [id number] 2.16.840.1.811516.3.579.2. 627 1962 Unknown [id number] 2.16.840.1.432862.3.579.2. 627 1962 Unknown [id number] 2.16.840.1.500425.3.579.2. 627 1962 Unknown [id number] 2.16.840.1.185121.3.579.2. 627 1962 Unknown [id number] 2.16.840.1.078050.3.579.2. 627 1962 Unknown [id number] 2.16.840.1.179442.3.579.2. 627 1962 Unknown [id number] 2.16.840.1.236907.3.579.2. 627 1962 Unknown [id number] 2.16.840.1.145879.3.579.2. 627 1962 Unknown [id number] 2.16.840.1.371150.3.579.2. 1245 1962 Unknown [id number] 2.16.840.1.105318.3.579.2. 1245 1962 Unknown [id number] 2.16.840.1.461999.3.579.2. 1245 1962 Unknown [id number] 2.16.840.1.717409.3.579.2. 1245 1962 Unknown [id number] 2.16.840.1.722760.3.579.2. 124 1962 Unknown [id number] 2.16.840.1.635658.3.579.2. 1245 1962 Unknown [id number] 2.16.840.1.009318.3.579.2. 1244 Unknown [id number] Unknown [id number] 2.16.840.1.897516.3.579.2. 462 Unknown [id number] 2.16.840.1.550193.3.579.2. 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 Type: Cigarettes. [facility] Ex-smoker (finding) [facility] Sex Assigned At [facility] Start: 07-10-2022 End: 01-15-2023 Tobacco smoking status Light tobacco smoker (finding) [facility] Start: 07-31-2022 End: 11-30-2024 Tobacco smoking status NHIS Smokes tobacco daily [facility] Start: 05-13-1979 History of tobacco use Cigarette Smoker [facility] Work Phone: Start: 07-31-2022 End: 08-26-2023 Tobacco use and exposure Smokeless tobacco non-user [facility] Work Phone: Start: 07-31-2022 End: 10-30-2022 Alcohol intake Lifetime non-drinker (finding) [facility] Work Phone: Start: 07-31-2022 End: 10-30-2022 Tobacco use panel [facility] Work Phone: Start: 1960 Sex Assigned At Not on file [facility] Work Phone: Start: 07-21-2022 End: 11-01-2023 Exposure to SARS-CoV-2 (event) Not sure [facility] Start: 08-26-2023 Tobacco Comment Smokes around 1/2 pack per week [facility] Work Phone: Start: 02-28-2024 Tobacco Comment Smokes around 1/2 pack per week. Currently smoking 3 cig per week 02/28/24. [facility] Work Phone: Start: 02-18-2024 End: 02-28-2024 Exposure to SARS-CoV-2 (event) Unable to assess [facility] Start: 1960 Sex Assigned At Male [facility] NEGATED: Highlighted row - - [facility] Work Phone: NEGATED: Highlighted rowStart: NINF History of tobacco use Passive smoker [facility] Work Phone: Functional Status Date Assessment Result Facility 01-26-2023 Functional Status ID band on, Call device within reach, Bed in low position, Wheels locked, Upper/Half-Length side-rails up, Phone within reach, Safety level maintained [facility] 01-16-2023 Functional Status Mod I Yadiel Waite [facility] 01-16-2023 Functional Status Door open, Room check performed [facility] 01-16-2023 Functional Status 3 Yadiel [facility] 01-16[facility]2023 [facility] Status [facility] 01-15-2023 [facility] Functional Status Abduction pill ow, ice on [facility] 01-15-2023 [facility] Functional Status Maintained, More than 8 hours [facility] 07-11-2022 Functional Status Door open, Room check performed [facility] 07-11-2022 Functional Status Yadiel Waite [facility] 07-11-2022 Functional Status Yadiel Waite [facility] 07-11-2022 Functional Status 3 Yadiel Waite [facility] 07-11-2022 Functional Status Yadiel Waite [facility] 07-10-2022 Functional Status Demonstrates C orrect Call Light Use Yes [facility] 07-10-2022 Functional Status Ambulating in room, Up to bathroom [facility] 07-10-2022 Functional Status Multilevel home [facility] 07-10-2022 Functional Status ice on, tension pillow in place [facility] 07-10-2022 Functional Status Yadiel Waite [facility] 07-10-2022 Functional Status Maintained Yadiel Waite [facility] 07-02-2022 Functional Status Sensory Deficits None A [facility] NEGATED: Highlighted row Functional performance Functional status health issues are not documented Disease [facility] Work Phone: Mental Status Date Assessment Result Facility 01-26-2023 Mental Status Oriented x 4 [facility] 01-16-2023 Mental Status Oriented x 4 [facility] 01-15-2023 Mental Status [facility] 01-15-2023 Mental Status [facility] 01-15-2023 Mental Status [facility] 07-11-2022 Mental Status Oriented x 4 [facility] 07-11-2022 Mental Status [facility] NEGATED: Highlighted row Cognitive function [Interpretation] Cognitive status health issues are not documented Disease [facility] Work Phone: Clinical Notes 10-13-2020 to 02-28-2024 Assessment & Plan Note - Nika Almanza - 02/28/2024 10:54 AM EDTAssessment & Plan Note - Nika Almanza - 02/28/2024 10:54 AM Paulino Medina MD - 02/28/2024 10:00 AM EDTPatient Instructions Note Date & Type Note Facility 02-28-2024 Evaluation + Plan note Associated Problem(s): Chronic obstructive pulmonary disease (Multi) Patient's COPD is managed currently on albuterol PRN. [facility] Work Phone: 02-28-2024 Miscellaneous Notes Associated Problem(s): Chronic obstructive pulmonary disease (Multi) Patient's COPD is managed currently on albuterol PRN. Associated Problem(s): Low back pain Patient complains of chronic low back pain that radiates down the right leg. He states it feels like muscle cramps. Patient was advised to stop taking the cyclobenzaprine because he is currently being managed by Ortho who has been prescribing tizanidine and performing corticosteroid injections with minimal relief. Patient was instructed to contact Ortho for medication refills and pain management. Associated Problem(s): Vitamin D deficiency Patient's vitamin D deficiency is managed on cholecalciferol. Associated Problem(s): Vasovagal syncope Patient reports episodes of dizziness at baseline during excessive bouts of coughing secondary to his COPD. He has synopsized in the past (years ago), but not recently (in the last few weeks). Associated Problem(s): Hyperlipidemia Patient's hyperlipidemia is managed on atorvastatin. Patient's last fasting blood work was collected in 11/03; all values WNL. Patient was instructed to get annual fasting blood work in 07/07 before next 4 month follow up appointment. documented in this encounter [facility] Work Phone: 02-28-2024 Evaluation + Plan note Associated Problem(s): Low back pain Patient complains of chronic low back pain that radiates down the right leg. He states it feels like muscle cramps. Patient was advised to stop taking the cyclobenzaprine because he is currently being managed by Ortho who has been prescribing tizanidine and performing corticosteroid injections with minimal relief. Patient was instructed to contact Ortho for medication refills and pain management. [facility] Work Phone: 02-28-2024 Evaluation + Plan note Associated Problem(s): Vitamin D deficiency Patient's vitamin D deficiency is managed on cholecalciferol. [facility] Work Phone: 02-28-2024 Evaluation + Plan note Associated Problem(s): Vasovagal syncope Patient reports episodes of dizziness at baseline during excessive bouts of coughing secondary to his COPD. He has synopsized in the past (years ago), but not recently (in the last few weeks). [facility] Work Phone: 02-28-2024 Evaluation + Plan note Associated Problem(s): Hyperlipidemia Patient's hyperlipidemia is managed on atorvastatin. Patient's last fasting blood work was collected in 11/03; all values WNL. Patient was instructed to get annual fasting blood work in 07/07 before next 4 month follow up appointment. [facility] Work Phone: 02-28-2024 History of Present illness Narrative Subjective Patient ID: Ildefonso Rocha is a 63 y.o. male who presents for regular 4 month follow up appointment. Ildefonso Rocha is a 63 year old male presenting today for a regular 4 month follow up appointment for HTN, chronic lumbar pain with sciatica, COPD, RALPH, nicotine dependence, and vitamin D deficiency. Patient complains of chronic low back pain that radiates down his right leg and feels like muscle cramps. Patient states he has been following up with Ortho for pain management with minimal relief. Review of Systems Respiratory: Negative for shortness of breath. Cardiovascular: Negative for chest pain and palpitations. Gastrointestinal: Positive for blood in stool. Negative for abdominal pain, constipation and diarrhea. Patient states he has noticed blood in the toilet intermittently from what he believes are hemorrhoids; he states he can feel the hemorrhoids. Genitourinary: Negative for difficulty urinating and dysuria. Neurological: Positive for light-headedness. Negative for syncope. Patient states he has vasovagal syncope and gets lightheaded from excessive bouts of coughing secondary to COPD. Objective Medication Documentation Review Audit Reviewed by Nika Almanza (Student Physician [employer]) on 02/28/24 at 1003 Medication Order Taking? Sig Documenting Provider Last Dose Status acetaminophen (Tylenol) 500 mg tablet [id number] 1 tablet (500 mg). Historical Provider, Active albuterol 90 mcg/actuation inhaler [id number] Inhale 2 puffs every 4 hours if needed for wheezing. Opal Medina MD Active apixaban (Eliquis) 5 mg tablet [id number] Take 1 tablet (5 mg) by mouth 2 times a day. Opal Medina MD Active atorvastatin (Lipitor) 20 mg tablet [id number] Take 1 tablet (20 mg) by mouth once daily. Opal Medina MD Active cholecalciferol (Vitamin D-3) 50 mcg (2,000 unit) capsule [id number] Take 1 capsule (50 mcg) by mouth once daily. Historical Provider, Active cyclobenzaprine (Flexeril) 5 mg tablet [id number] Take 1 tablet (5 mg) by mouth as needed at bedtime for muscle spasms (for Restless leg). Opal Medina MD Active Discontinued 02/28/24 1001 hydroCHLOROthiazide (HYDRODiuril) 50 mg tablet [id number] Take 1 tablet (50 mg) by mouth once daily. Opal Medina MD Active multivitamin capsule [id number] once daily. Historical Provider, Active caxcafvo-[id number] (Cortisporin) otic solution [id number] Administer 2 drops into the left ear 4 times a day. Opal Medina MD Active sertraline (Zoloft) 100 mg tablet [id number] Take 1 daily Opal Medina MD Active No Known Allergies BP 120/78 Pulse 82 Ht 1.734 m (5' 8.25") Wt 126 kg (277 lb) SpO2 96% BMI 41.81 kg/m Physical Exam Constitutional: Appearance: Normal appearance. He is obese. He is not ill-appearing, toxic-appearing or diaphoretic. Comments: Patient states he is experiencing unremitting pain in the lumbar region of his lower back. No midline tenderness. Patient is being managed by Ortho and has received corticosteroid injections and is currently taking tizanidine. HENT: Head: Normocephalic and atraumatic. Nose: Nose normal. Cardiovascular: Rate and Rhythm: Normal rate and regular rhythm. Pulses: Normal pulses. Heart sounds: Normal heart sounds. No murmur heard. No friction rub. No gallop. Pulmonary: Effort: Pulmonary effort is normal. No respiratory distress. Breath sounds: Normal breath sounds. No stridor. No wheezing, rhonchi or rales. Chest: Chest wall: No tenderness. Skin: General: Skin is warm and dry. Coloration: Skin is not jaundiced or pale. Findings: No bruising, erythema, lesion or rash. Neurological: General: No focal deficit present. Mental Status: He is alert and oriented to person, place, and time. Psychiatric: Mood and Affect: Mood normal. Behavior: Behavior normal. Assessment/Plan Problem List Items Addressed This Visit Low back pain Patient complains of chronic low back pain that radiates down the right leg. He states it feels like muscle cramps. Patient was advised to stop taking the cyclobenzaprine because he is currently being managed by Ortho who has been prescribing tizanidine and performing corticosteroid injections with minimal relief. Patient was instructed to contact Ortho for medication refills and pain management. Hypertension Relevant Medications hydroCHLOROthiazide (HYDRODiuril) 50 mg tablet Nicotine dependence RALPH (obstructive sleep apnea) Vitamin D deficiency Patient's vitamin D deficiency is managed on cholecalciferol. Chronic obstructive pulmonary disease (Multi) Patient's COPD is managed currently on albuterol PRN. Relevant Medications albuterol 90 mcg/actuation inhaler Acute deep vein thrombosis (DVT) of left lower extremity (Multi) Relevant Medications apixaban (Eliquis) 5 mg tablet Vasovagal syncope Patient reports episodes of dizziness at baseline during excessive bouts of coughing secondary to his COPD. He has synopsized in the past (years ago), but not recently (in the last few weeks). Hyperlipidemia Patient's hyperlipidemia is managed on atorvastatin. Patient's last fasting blood work was collected in 11/03; all values WNL. Patient was instructed to get annual fasting blood work in 07/07 before next 4 month follow up appointment. Other Visit Diagnoses Annual physical exam - Primary Relevant Orders CBC Lipid panel Tsh With Reflex To Free T4 If Abnormal Vitamin D 25-Hydroxy,Total (for eval of Vitamin D levels) Comprehensive metabolic panel Flu vaccine need Relevant Orders Flu vaccine, trivalent, preservative free, age 6 months and greater (Fluarix/Fluzone/Flulaval) (Completed) Hypercholesterolemia Relevant Medications atorvastatin (Lipitor) 20 mg tablet RLS (restless legs syndrome) Depression screen Relevant Medications sertraline (Zoloft) 100 mg tablet Patient received an influenza vaccination today (02/28/24). This note or encounter for this patient visit included a student. I have independently interviewed the patient, performed a physical exam and performed my own assessment and plan and orders. It has been a pleasure seeing you. Opal Medina MD documented in this encounter [facility] Work Phone: 02-28-2024 Instructions Opal Medina MD - 02/28/2024 10:00 AM EDT Follow up Dr Medina in 4 months for HTN etc 30 min Please get fasting labs before next appointment All Back meds should come from ortho. documented in this encounter [facility] Work Phone: 11-01-2023 Evaluation + Plan note Associated Problem(s): Nicotine dependence Patient is down to only about 3 cigarettes a day. We had a long discussion today and strongly encouraged him to find a way to quit smoking. I did offer him assistance with medications and we talked about things like Nicorette gum versus the NicoDerm patch. He was given the phone number for the helpline in [place] which is 1 800 quit now. Patient knows he needs to quit smoking but just has not been able to take the final step. He was reminded if he needs any help to give us a call or come in and see me. Patient was counseled about smoking cessation for approximately 7 minutes. [facility] Work Phone: 11-01-2023 Miscellaneous Notes Associated Problem(s): Nicotine dependence Patient is down to only about 3 cigarettes a day. We had a long discussion today and strongly encouraged him to find a way to quit smoking. I did offer him assistance with medications and we talked about things like Nicorette gum versus the NicoDerm patch. He was given the phone number for the helpline in [place] which is 1 [phone] quit now. Patient knows he needs to quit smoking but just has not been able to take the final step. He was reminded if he needs any help to give us a call or come in and see me. Patient was counseled about smoking cessation for approximately 7 minutes. Associated Problem(s): Acute right-sided low back pain with right-sided sciatica Patient is currently getting injections through Dr. Meléndez in the [facility] center for this and it is finally starting to work. Associated Problem(s): Current moderate episode of major depressive disorder without prior episode (Multi) Patient is taking sertraline 100 mg for his his depression. He notes it is working well he is not irritable with his and does not feel his typical agitation as long as he stays on the medication. Associated Problem(s): Acute deep vein thrombosis (DVT) of left lower extremity (Multi) Patient has a chronic DVT now and remains on Eliquis. He has no bruises or other problems currently and is tolerating the medication Associated Problem(s): Vasovagal syncope Patient had had 2 episodes of syncope he was fully evaluated and it is determined that this is vasovagal syncope. We discussed a little bit more today and encouraged him to make sure that when he first stands up and starts walking he stand for just a second or 2 before he starts moving so that he does not pass out again. If he continues to have issues or recurrence of the syncope he is to notify us immediately Associated Problem(s): Hypertension Blood pressure stable and well-controlled no changes were needed today. He was given a refill on his hydrochlorothiazide documented in this encounter [facility] Work Phone: 11-01-2023 Evaluation + Plan note Associated Problem(s): Acute right-sided low back pain with right-sided sciatica Patient is currently getting injections through Dr. Meléndez in the [facility] for this and it is finally starting to work. [facility] Work Phone: 11-01-2023 Evaluation + Plan note Associated Problem(s): Current moderate episode of major depressive disorder without prior episode (Multi) Patient is taking sertraline 100 mg for his his depression. He notes it is working well he is not irritable with his and does not feel his typical agitation as long as he stays on the medication. [facility] Work Phone: 11-01-2023 Evaluation + Plan note Associated Problem(s): Acute deep vein thrombosis (DVT) of left lower extremity (Multi) Patient has a chronic DVT now and remains on Eliquis. He has no bruises or other problems currently and is tolerating the medication [facility] Work Phone: 11-01-2023 Evaluation + Plan note Associated Problem(s): Vasovagal syncope Patient had had 2 episodes of syncope he was fully evaluated and it is determined that this is vasovagal syncope. We discussed a little bit more today and encouraged him to make sure that when he first stands up and starts walking he stand for just a second or 2 before he starts moving so that he does not pass out again. If he continues to have issues or recurrence of the syncope he is to notify us immediately [facility] Work Phone: 11-01-2023 Evaluation + Plan note Associated Problem(s): Hypertension Blood pressure stable and well-controlled no changes were needed today. He was given a refill on his hydrochlorothiazide [facility] Work Phone: 11-01-2023 History of Present illness Narrative Subjective Patient ID: Ildefonso Rocha is a 63 y.o. male who presents for 4 month follow up for HTN nad depression management. Patient is here for routine follow-up on medical problems including hypertension, depression, arthritis and high cholesterol. Cholesterol and liver enzymes and labs was reviewed with the patient today. Patient continues to see Dr. Meléndez at in [facility] for back injections which are finally helping. Review of Systems Constitutional: Negative for fatigue and fever. HENT: Negative for sore throat and trouble swallowing. Eyes: Negative for visual disturbance. Respiratory: Negative for cough and shortness of breath. Cardiovascular: Negative for chest pain, palpitations and leg swelling. Gastrointestinal: Negative for abdominal pain, constipation, diarrhea, nausea and vomiting. Genitourinary: Negative for dysuria and frequency. Musculoskeletal: Positive for back pain and gait problem. Negative for arthralgias. Skin: Negative for rash. Neurological: Negative for dizziness and light-headedness. Objective Medication Documentation Review Audit Reviewed by Opal Medina MD (Physician) on 11/01/23 at 1002 Medication Order Taking? Sig Documenting Provider Last Dose Status acetaminophen (Tylenol) 500 mg tablet [id number] 1 tablet (500 mg). Historical ProviderMD Active albuterol 90 mcg/actuation inhaler [id number] Inhale 2 puffs every 4 hours if needed for wheezing. Opal Medina MD Active apixaban (Eliquis) 5 mg tablet [id number] Take 1 tablet (5 mg) by mouth 2 times a day. Opal Medina MD Active atorvastatin (Lipitor) 20 mg tablet [id number] Take 1 tablet (20 mg) by mouth once daily. Opal Medina MD Active cholecalciferol (Vitamin D-3) 50 mcg (2,000 unit) capsule [id number] No Take 1 capsule (50 mcg) by mouth once daily. Historical Provider, Not Taking Active cyclobenzaprine (Flexeril) 5 mg tablet [id number] Take 1 tablet (5 mg) by mouth as needed at bedtime for muscle spasms (for Restless leg). Opal Medina MD Active glucose 4 gram chewable tablet [id number] Chew if needed for low blood sugar - see comments. Historical Provider, Active hydroCHLOROthiazide (HYDRODiuril) 50 mg tablet [id number] Take 1 tablet (50 mg) by mouth once daily. Opal Medina MD Active multivitamin capsule [id number] No once daily. Historical Provider, Taking Active poqhpaoi-[id number]-SU (Cortisporin) otic solution [id number] Administer 2 drops into the left ear 4 times a day. Opal Medina MD Active sertraline (Zoloft) 100 mg tablet [id number] Take 1 daily Opal Medina MD Active No Known Allergies Physical Exam Constitutional: Appearance: Normal appearance. He is obese. HENT: Head: Normocephalic and atraumatic. Nose: Nose normal. Eyes: Extraocular Movements: Extraocular movements intact. Pupils: Pupils are equal, round, and reactive to light. Cardiovascular: Rate and Rhythm: Normal rate and regular rhythm. Pulmonary: Breath sounds: Normal breath sounds. Abdominal: General: Abdomen is flat. Bowel sounds are normal. Palpations: Abdomen is soft. Musculoskeletal: Right lower leg: No edema. Left lower leg: No edema. Neurological: Mental Status: He is alert. BP 122/74 (BP Location: Left arm, Patient Position: Sitting) Pulse 79 Ht 1.734 m (5' 8.25") Wt 128 kg (282 lb 6.4 oz) SpO2 94% BMI 42.62 kg/m Assessment/Plan Problem List Items Addressed This Visit Acute right-sided low back pain with right-sided sciatica Patient is currently getting injections through Dr. Meléndez in the [facility] for this and it is finally starting to work. Hypertension Blood pressure stable and well-controlled no changes were needed today. He was given a refill on his hydrochlorothiazide Relevant Medications hydroCHLOROthiazide (HYDRODiuril) 50 mg tablet Malignant melanoma (Multi) Nicotine dependence Patient is down to only about 3 cigarettes a day. We had a long discussion today and strongly encouraged him to find a way to quit smoking. I did offer him assistance with medications and we talked about things like Nicorette gum versus the NicoDerm patch. He was given the phone number for the helpline in [place] which is 1 800 quit now. Patient knows he needs to quit smoking but just has not been able to take the final step. He was reminded if he needs any help to give us a call or come in and see me. Patient was counseled about smoking cessation for approximately 7 minutes. Chronic obstructive pulmonary disease (Multi) Relevant Medications albuterol 90 mcg/actuation inhaler Malignant neoplasm of skin of face Current moderate episode of major depressive disorder without prior episode (Multi) Patient is taking sertraline 100 mg for his his depression. He notes it is working well he is not irritable with his and does not feel his typical agitation as long as he stays on the medication. Acute deep vein thrombosis (DVT) of left lower extremity (Multi) Patient has a chronic DVT now and remains on Eliquis. He has no bruises or other problems currently and is tolerating the medication Relevant Medications apixaban (Eliquis) 5 mg tablet Vasovagal syncope - Primary Patient had had 2 episodes of syncope he was fully evaluated and it is determined that this is vasovagal syncope. We discussed a little bit more today and encouraged him to make sure that when he first stands up and starts walking he stand for just a second or 2 before he starts moving so that he does not pass out again. If he continues to have issues or recurrence of the syncope he is to notify us immediately Other Visit Diagnoses Hypercholesterolemia Relevant Medications atorvastatin (Lipitor) 20 mg tablet RLS (restless legs syndrome) Relevant Medications cyclobenzaprine (Flexeril) 5 mg tablet Depression screen Relevant Medications sertraline (Zoloft) 100 mg tablet It has been a pleasure seeing you. Opal Medina MD documented in this encounter [facility] Work Phone: 11-01-2023 Instructions Opal Medina MD - 11/01/2023 10:00 AM EDT Please call [phone] now to help stop smoking Follow up Dr Medina in 4 months for HTN, etc 30 min appointment documented in this encounter [facility] Work Phone: 07-31-2023 Evaluation + Plan note Associated Problem(s): Vasovagal syncope The most likely explanation of the episodes is some sort of vasovagal syncope possibly due to low heart rate and or blood pressure after taking his meds early in the morning without food. Ideally I would like to do carotid Dopplers, CT of the head, echocardiogram and he just had blood work this past month. Due to cost savings I will check an echocardiogram but hold off on the other tests unless the patient has a third episode. [facility] Work Phone: 07-31-2023 Miscellaneous Notes Associated Problem(s): Vasovagal syncope The most likely explanation of the episodes is some sort of vasovagal syncope possibly due to low heart rate and or blood pressure after taking his meds early in the morning without food. Ideally I would like to do carotid Dopplers, CT of the head, echocardiogram and he just had blood work this past month. Due to cost savings I will check an echocardiogram but hold off on the other tests unless the patient has a third episode. documented in this encounter [facility] Work Phone: 07-31-2023 History of Present illness Narrative Subjective Patient ID: Ildefonso Rocha is a 63 y.o. male who presents for dizziness and general health management. Patient is here today because of a syncopal episode which occurred this past Saturday. He was walking to [place] when he suddenly became lightheaded elevated and fell to his knees. Patient does not think he passed out but the was present and says his eyes rolled back in his head and he was unconscious for few seconds. He did not lose any bladder or bowel function and recovered quickly. There did not seem to be any seizure activity nor was there a postictal period. Patient does admit that he took all of his medications that morning and did not eat breakfast. He had a similar episode few months ago. He was standing in the kitchen early in the morning about 7 AM getting his out to work when he suddenly felt lightheaded. He had to grab the countertop and hold onto it so he did not pass out and after a few seconds the feeling subsided and he was able to recover. He sat down to eat some toast with peanut butter and honey on it and then did not have problems the rest of the day. He had taken his other medications earlier that morning prior to the episode. During these 2 episodes she denies becoming diaphoretic or having any headache or chest pains or palpitations. He simply felt lightheaded suddenly and felt like he was going to pass out each time. Each episode was early in the morning and both times he had taken all his medications without food. Patient has poor health insurance however and does not want an extensive or thorough workup because of the cost Review of Systems Constitutional: Negative for chills, fatigue and fever. Today in the last few days the patient has been asymptomatic. He denies feeling lightheaded dizzy or any other complaints. See HPI for more specific details of the episode HENT: Negative for sore throat. Eyes: Negative for visual disturbance. Respiratory: Negative for cough and shortness of breath. Cardiovascular: Negative for chest pain, palpitations and leg swelling. Gastrointestinal: Negative for constipation, diarrhea, nausea and vomiting. Genitourinary: Negative for difficulty urinating, dysuria, frequency, hematuria and urgency. Musculoskeletal: Negative for arthralgias and myalgias. Skin: Negative for rash. Neurological: Negative for dizziness, syncope, weakness, light-headedness and headaches. Objective Medication Documentation Review Audit Reviewed by Opal Medina MD (Physician) on 07/31/23 at 1539 Medication Order Taking? Sig Documenting Provider Last Dose Status acetaminophen (Tylenol) 500 mg tablet [id number] 1 tablet (500 mg). Historical ProviderMD Active albuterol 90 mcg/actuation inhaler [id number] Inhale 2 puffs every 4 hours if needed for wheezing. Opal Medina MD Active apixaban (Eliquis) 5 mg tablet [id number] Take 1 tablet (5 mg) by mouth 2 times a day. Opal Medina MD Active atorvastatin (Lipitor) 20 mg tablet [id number] Take 1 tablet (20 mg) by mouth once daily. Opal Medina MD Active cholecalciferol (Vitamin D-3) 50 mcg (2,000 unit) capsule [id number] No Take 1 capsule (50 mcg) by mouth once daily. Historical ProviderMD Not Taking Active cyclobenzaprine (Flexeril) 5 mg tablet [id number] Take 1 tablet (5 mg) by mouth as needed at bedtime for muscle spasms (for Restless leg). Opal Medina MD Active glucose 4 gram chewable tablet [id number] Chew if needed for low blood sugar - see comments. Historical ProviderMD Active hydroCHLOROthiazide (HYDRODiuril) 50 mg tablet [id number] Take 1 tablet (50 mg) by mouth once daily. Opal Medina MD Active multivitamin capsule [id number] No once daily. Historical ProviderMD Taking Active anmqpomf-fuckpnjgp-IJ (Cortisporin) otic solution [id number] Administer 2 drops into the left ear 4 times a day. Opal Medina MD Active sertraline (Zoloft) 100 mg tablet [id number] Take 1 daily Opal Medina MD Active No Known Allergies Physical Exam Constitutional: Appearance: Normal appearance. He is obese. HENT: Head: Normocephalic and atraumatic. Nose: Nose normal. Eyes: Extraocular Movements: Extraocular movements intact. Pupils: Pupils are equal, round, and reactive to light. Cardiovascular: Rate and Rhythm: Normal rate and regular rhythm. Pulmonary: Breath sounds: Normal breath sounds. Abdominal: General: Abdomen is flat. Bowel sounds are normal. Palpations: Abdomen is soft. Musculoskeletal: Right lower leg: No edema. Left lower leg: No edema. Neurological: Mental Status: He is alert. BP 125/85 (BP Location: Left arm, Patient Position: Sitting) Pulse 81 Ht 1.734 m (5' 8.25") Wt 128 kg (281 lb 9.6 oz) SpO2 95% BMI 42.50 kg/m Assessment/Plan Problem List Items Addressed This Visit Vasovagal syncope - Primary The most likely explanation of the episodes is some sort of vasovagal syncope possibly due to low heart rate and or blood pressure after taking his meds early in the morning without food. Ideally I would like to do carotid Dopplers, CT of the head, echocardiogram and he just had blood work this past month. Due to cost savings I will check an echocardiogram but hold off on the other tests unless the patient has a third episode. Relevant Orders [facility]ansthoracic [facility] It has been a pleasure seeing you. Opal Medina MD documented in this encounter [facility] Work Phone: 07-31-2023 Instructions Opal Medina MD - 07/31/2023 3:30 PM EDT Set up echo with cardiology Please take medications in the morning with food documented in this encounter [facility] Work Phone: 07-05-2023 Evaluation + Plan note Associated Problem(s): Current moderate episode of major depressive disorder without prior episode (CMS/HCC) Patient stated his mood is stable on the sertraline. [facility] Work Phone: 07-05-2023 Miscellaneous Notes Associated Problem(s): Current moderate episode of major depressive disorder without prior episode (CMS/HCC) Patient stated his mood is stable on the sertraline. Associated Problem(s): Acute deep vein thrombosis (DVT) of left lower extremity (CMS/HCC) Patient remains on Eliquis however it has been more than a year so at this time if he needs to hold it for spinal injection we can do so. I would like to reach or have his pain management physician have direct contact with that so I will to his office The information I have from the patient is that he is supposed to have a spinal injection on July 16 by [facility] and Dr. Harini Meléndez. Phone number is [phone] Associated Problem(s): Hypertension Blood pressure stable and well-controlled. documented in this encounter [facility] Work Phone: 07-05-2023 Evaluation + Plan note Associated Problem(s): Acute deep vein thrombosis (DVT) of left lower extremity (CMS/HCC) Patient remains on Eliquis however it has been more than a year so at this time if he needs to hold it for spinal injection we can do so. I would like to reach or have his pain management physician have direct contact with that so I will to his office The information I have from the patient is that he is supposed to have a spinal injection on July 16 by [facility] and Dr. Harini Meléndez. Phone number is [phone] [facility] Work Phone: 07-05-2023 Evaluation + Plan note Associated Problem(s): Hypertension Blood pressure stable and well-controlled. [facility] Work Phone: 07-05-2023 History of Present illness Narrative Subjective Patient ID: Ildefonso Rocha is a 63 y.o. male who presents for 4 month follow for general health management. BN Is scheduled here for regular follow-up for his restless leg, hypertension and DVT. Patient remains on Eliquis but is scheduled to have a spinal injection in [place] on July 16. He mentions to me that he wants to know what to do about the Eliquis and that the pain management physicians told him to discuss it with me. I have not received anything from pain management such as a preop clearance or request for discontinuation of his anticoagulation. I will reach out to the office of Dr. Harini Meléndez at [facility]. Review of Systems Constitutional: Negative for chills, fatigue and fever. HENT: Negative for sore throat. Eyes: Negative for visual disturbance. Respiratory: Negative for cough and shortness of breath. Cardiovascular: Negative for chest pain, palpitations and leg swelling. Gastrointestinal: Negative for constipation, diarrhea, nausea and vomiting. Genitourinary: Negative for difficulty urinating, dysuria, frequency, hematuria and urgency. Musculoskeletal: Positive for back pain and gait problem. Negative for arthralgias and myalgias. Skin: Negative for rash. Neurological: Negative for dizziness, syncope, weakness, light-headedness and headaches. Objective Medication Documentation Review Audit Reviewed by Opal Medina MD (Physician) on 07/05/23 at 1109 Medication Order Taking? Sig Documenting Provider Last Dose Status acetaminophen (Tylenol) 500 mg tablet [id number] 1 tablet (500 mg). Historical Provider, Active albuterol 90 mcg/actuation inhaler [id number] Inhale 2 puffs every 4 hours if needed for wheezing. Opal Medina MD Active apixaban (Eliquis) 5 mg tablet [id number] Take 1 tablet (5 mg) by mouth 2 times a day. Opal Medina MD Active cholecalciferol (Vitamin D-3) 50 mcg (2,000 unit) capsule [id number] No Take 1 capsule (50 mcg) by mouth once daily. Historical ProviderMD Not Taking Active glucose 4 gram chewable tablet [id number] Chew if needed for low blood sugar - see comments. Historical Provider, Active hydroCHLOROthiazide (HYDRODiuril) 50 mg tablet [id number] Take 1 tablet (50 mg) by mouth once daily. Opal Medina MD Active Discontinued 07/05/23 1109 Discontinued 07/05/23 1109 multivitamin capsule [id number] No once daily. Historical Provider, Taking Active fqconscs-giegpdqmy-YS (Cortisporin) otic solution [id number] Administer 2 drops into the left ear 4 times a day. Opal Medina MD Active sertraline (Zoloft) 100 mg tablet [id number] Take 1 daily Opal Medina MD Active No Known Allergies Physical Exam Constitutional: Appearance: Normal appearance. He is obese. HENT: Head: Normocephalic and atraumatic. Right Ear: Tympanic membrane and ear canal normal. Left Ear: Tympanic membrane normal. Ears: Comments: Left external auditory canal with what appears to be a small ulceration surrounded by erythema. I suspect this is damage from a Q-tip cause a secondary otitis externa. Nose: Nose normal. Eyes: Extraocular Movements: Extraocular movements intact. Pupils: Pupils are equal, round, and reactive to light. Cardiovascular: Rate and Rhythm: Normal rate and regular rhythm. Pulmonary: Breath sounds: Normal breath sounds. Abdominal: General: Abdomen is flat. Bowel sounds are normal. Palpations: Abdomen is soft. Musculoskeletal: Right lower leg: No edema. Left lower leg: No edema. Neurological: Mental Status: He is alert. BP 116/72 (BP Location: Left arm, Patient Position: Sitting) Pulse 80 Ht 1.734 m (5' 8.25") Wt 126 kg (277 lb 6.4 oz) SpO2 95% BMI 41.87 kg/m Assessment/Plan Problem List Items Addressed This Visit Low back pain Relevant Orders Disability Placard Hypertension Blood pressure stable and well-controlled. Malignant melanoma (CMS/HCC) Chronic obstructive pulmonary disease (CMS/HCC) Current moderate episode of major depressive disorder without prior episode (CMS/HCC) Patient stated his mood is stable on the sertraline. Acute deep vein thrombosis (DVT) of left lower extremity (CMS/HCC) Patient remains on Eliquis however it has been more than a year so at this time if he needs to hold it for spinal injection we can do so. I would like to reach or have his pain management physician have direct contact with that so I will to his office The information I have from the patient is that he is supposed to have a spinal injection on July 16 by [facility] and Dr. Harini Meléndez. Phone number is [phone] Other Visit Diagnoses Acute swimmer's ear of left side - Primary Relevant Medications oyvdukua-wzpbavnun-QW (Cortisporin) otic solution Hypercholesterolemia Relevant Medications atorvastatin (Lipitor) 20 mg tablet Other Relevant Orders Lipid panel Hepatic function panel RLS (restless legs syndrome) Relevant Medications cyclobenzaprine (Flexeril) 5 mg tablet It has been a pleasure seeing you. Opal Medina MD documented in this encounter [facility] Work Phone: 07-05-2023 Instructions Opal Medina MD - 07/05/2023 11:30 AM EST Get fasting s before next appointment Follow up Dr Medina in 4 months for chol etc 30 min appointment documented in this encounter [facility] Work Phone: 01-26-2023 Hospital Discharge instructions Patient Education 01/26/2023 20:06:45 AA Marta ARELLANO(CUSTOM) Leg redness The redness in your leg could be from post operative skin changes. It also could be signs of early infection. Therefore you will have new antibiotics prescribed to you. Please be sure you are following up with your surgeon for further evaluation. If you develop worsening symptoms such as fevers vomiting or the redness is spreading please return to the ER for reevaluation. Document Released: 04/29/2006 Document Revised: 04/15/2013 Document Reviewed: 04/30/2014 ExitCare Patient Information 2015 [employer]. This information is not intended to replace advice given to you by your health care provider. Make sure you discuss any questions you have with your health care provider. Follow Up Care 01/26/2023 19:47:06 With:GRICELDA OLIVER MD Address: [address] [place] [address] [address] [facility] [place] [facility] [place] [address]- [phone] When:2-4 days [facility] 01-26-2023 Note Discharge Instructions Thank you for allowing [facility] to assist you with your healthcare needs. The following is important discharge information regarding your hospital visit. What to Do Next Instructions from Your Care Team No qualifying data available. Post Acute Orders No qualifying data available. You Need to Schedule the Following Appointments Follow Up with GRICELDA OLIVER MD When Within 2-4 days Where: [address] [place] [address] [address] [facility] [place] [facility] [place] [address] [phone] Allergies NKA Medications Please ask your primary doctor or pharmacist before taking any other medication not listed, including over the counter drugs, herbal medications, vitamins and or supplements as they may interact with your home medications. What How Much When Instructions Last Dose New cephalexin (cephalexin 500 mg oral tablet) 1 tab(s) by mouth Two (2) times a day Duration: 7 Days Printed Prescription New sulfamethoxazole-trimethoprim (Bactrim DS 800 mg-160 mg oral tablet) 1 tab(s) by mouth Two (2) times a day Duration: 10 Days Printed Prescription Unchanged acetaminophen (Tylenol) 1,000 Milligram by mouth Every 6 hours Unchanged albuterol (Albuterol (Eqv-ProAir HFA) 90 mcg/ inh inhalation aerosol) 2 puff(s) by inhalation Every 4 hours as needed for Shortness of breath or wheezing per patient takes daily every 4 to 6 days Unchanged apixaban (Eliquis 5 mg oral tablet) 1 tab(s) by mouth Two (2) times a day Unchanged cholecalciferol (Vitamin D3 25 mcg (1000 intl units) oral tablet) 2 tab(s) by mouth Every day Unchanged diphenhydrAMINE (Benadryl 25 mg oral tablet) 1 tab(s) by mouth Every 6 hours as needed for Itching Unchanged doxycycline (doxycycline hyclate 100 mg oral capsule) 1 cap by mouth Every 12 hours Duration: 14 Days Unchanged famotidine (Pepcid 20 mg oral tablet) 1 tab(s) by mouth Once a day Unchanged hydroCHLOROthiazide (hydroCHLOROthiazide 50 mg oral tablet) 1 tab(s) by mouth Once a day Unchanged multivitamin (Multivitamin) 1 tab(s) by mouth Every day Unchanged sertraline (sertraline 100 mg oral tablet) 1 tab(s) by mouth Every day Please take this list to your next doctor s visit. Bring all medications you take, including over the counter medications, herbals and other supplements with you to your doctor s visit. Patients and families are reminded to discard old lists and to update any records with all medication providers or retail pharmacies. Education Materials Leg redness The redness in your leg could be from post operative skin changes. It also could be signs of early infection. Therefore you will have new antibiotics prescribed to you. Please be sure you are following up with your surgeon for further evaluation. If you develop worsening symptoms such as fevers vomiting or the redness is spreading please return to the ER for reevaluation. Document Released: 04/29/2006 Document Revised: 04/15/2013 Document Reviewed: 04/30/2014 ExitCare Patient Information [address] [facility]. This information is not intended to replace advice given to you by your health care provider. Make sure you discuss any questions you have with your health care provider. Additional Information VACCINATE! IT SAVES LIVES! Members of the community who have not yet received the COVID-19 vaccine and would like to receive it can visit one of [facility] vaccine clinics. There are many vaccine clinic locations within the [facility]. For locations and available times, please visit [email or web address] It is important to note that some COVID mobile vaccine clinics are held outdoors and may be canceled in rainy or stormy conditions. To learn more about pediatric vaccinations (ages 5-11), we invite you to visit the [facility] webpage. [email or web address] To learn more about the COVID-19 vaccine, we invite you to visit the CDC website for a list of frequently asked questions. https://www.cdc.gov/coronavirus/2 019-ncov/vaccines/faq.html [facility] Portal Access Instructions: Stay connected with your healthcare team and access your personal medical information anytime with the [facility] Patient Portal. If you would like a full copy of your medical records please contact the [facility] Medical Records Department Saturday through Saturday between 8a.m. and 4:30p.m. Please follow the directions below to access the portal: 1.Access the email account you provided upon registration to the [facility].2.Look for an invitation email from [facility].3.Open the email and access the invitation link: Accept Invitation to [facility]4.Fill in the required benson to create your account. Sign into [email or web address].[email or web address] with your username and password that you created in the above steps to stay up to date. You can then view a summary of results, a summary of your visits, and the ability to download your summaries to your computer or send the information securely to a physician. Remember that your healthcare information is confidential, so carefully consider who you will allow to register on the [facility] Patient Portal for access to your information. You can also access the [facility] Patient Portal on the icomply. Simply click on "Health Records" under "Health Data" and then click on the [employer] logo. HOW TO SAFELY DISPOSE OF PRESCRIPTION MEDICATIONS Please use one of the following methods to safely dispose of your unused medications. 1.Use a drug disposal kit: the drug disposal pouch allows you to safely discard your old and unused drugs. Ask your nurse to give you one when you are discharged.2.Visit a local take-back location: Many local pharmacies and police departments have programs that collect old and unwanted prescription drugs. Call your local pharmacy or go to http://bit.ly/1X2Sl0g to find one close to you.3.Make use of household items: Use cat litter or old coffee grounds to dispose medications if other options are not available. Mix your drugs with these household products, seal them in an airtight container and throw it into the garbage. Call [facility]: [phone] to be sure your drugs can be disposed of in this way. Some medicines may require a different approach.4.Never flush your medications down the toilet. IF YOU HAVE BEEN PRESCRIBED AN OPIOIDS FOR PAIN If you have been prescribed an opioid (such as hydrocodone, oxycodone or morphine), it is critical to understand the possible side effects and risks of opioid pain medications. Even when taken as directed, opioids can have several side effects including: Tolerance, meaning you might need to take more of a medication for the same pain relief. Nausea, vomiting and/or constipation. Sleepiness, dizziness, dry mouth, confusion, depression or itching. Physical dependence, meaning you have withdrawal symptoms when a medication is stopped ? this can develop within a few days. KNOW YOUR RESPONSIBILITIES It is important to know exactly how much and how often to take the opioid pain medications you are prescribed. Never take opioids in higher amounts or more often than prescribed. Do not combine opioids with alcohol or other drugs that cause drowsiness, such as benzodiazepines, also known as benzos, including diazepam and alprazolam, muscle relaxants or sleep aids. Never sell or share prescription opioids. This is illegal. Store opioids in a secure place and out of reach of others (including children, family, friends and visitors). The last page(s) of this document has been signed and retained as a CHART COPY Signatures Patient Education Materials MILDRED ARELLANO(CUSTOM) Medication Leaflets My discharge plan and instructions have been reviewed and explained to me and I,ILDEFONSO ROCHA understand my current condition and have read and understand these discharge instructions. I have received a written copy of the plan/instructions. If I have questions, I am aware that I should contact my doctor. 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 Overnight patient remained afebrile and hemodynamically stable with adequate oxygen saturations on room air. Labs reviewed, H&H stable. Renal function stable. On exam today, pt denies any fever or chills. No headache or dizziness. Denies chest pain, palpitations. No cough, dyspnea, sputum production. Denies N/V/D/C. No melena/hematochezia. No dysuria or hematuria. No new paresthesias. Objective Vitals and Measurements T: 36.6 C (Oral) TMIN: 36.4 C (Oral) TMAX: 36.7 C (Oral) HR: 76(Monitored) RR: 16 BP: 124/69 SpO2: 94% Intake and Output 7AM Yesterday to 7AM Today Intake and Output (Last 24 hours) Intake Oral Intake 840.00 Supplement Intake 0.00 Output Stool Count 1.00 Urine Count 7.00 Total Summary Total Intake 840.00 Total Output 0.00 Fluid Balance 840.00 Physical Exam GEN: Appears chronically ill CHEST: Normal S1 and S2. Rhythm is regular. Clear to auscultation, without rales, rhonchi, wheezing. ABD: Positive bowel sounds x 4 quads. Soft, obese, nondistended, nontender. EXT: No significant deformity or joint abnormality. No edema. Peripheral pulses intact. NEURO: Sensation grossly intact SKIN: Surgical dressing in place PSYCH: The mental examination revealed the patient was alert and oriented x 4 Weight Dosing Weight: 119 kg (01/15/23) Dosing Weight: 119 kg (01/15/23) Medications Medications (21) Active Scheduled: (11) acetaminophen 500 mg Tablet 1,000 mg 2 tab(s), Oral, q6h apixaban 2.5 mg tablet 5 mg 2 tab(s), Oral, BID dexamethasone 10 mg/mL (1mL) SDV 10 mg 1 mL, IV Push, AsDirected docusate sodium 100 mg Capsule 100 mg 1 cap(s), Oral, BID docusate-senna (Senokot S) 50 mg-8.6 mg Tablet 2 tab(s), Oral, BID doxycycline hyclate 100 mg Capsule 100 mg 1 cap(s), Oral, q12h famotidine 20 mg tablet 20 mg 1 tab(s), Oral, qDay hydrochlorothiazide 25 mg tablet 50 mg 2 tab(s), Oral, qDay magnesium hydroxide 8% Suspension 30 mL UD 30 mL, Oral, Daily multivitamin (Myadec) with minerals Therapeutic Multiple Vitamins with Minerals Tablet 1 tab(s), Oral, qDayM sertraline 50 mg tablet 100 mg 2 tab(s), Oral, Daily Continuous: (1) Lactated Ringers 1,000 mL 1,000 mL, Intravenous, 100 mL/hr PRN: (9) acetaminophen 325 mg Tablet 650 mg 2 tab(s), Oral, q4h diphenhydramine 25 mg tablet 25 mg 1 tab(s), Oral, q6h diphenhyDRAMINE 50 mg/mL (1 mL) INJ 25 mg 0.5 mL, IV Push, q6h morphine 2 mg/mL 1 mL syringe 2 mg 1 mL, IV Push, q1h ondansetron 2 mg/ 1 mL 2 mL INJ 4 mg 2 mL, IV Push, q8h oxycodone 5 mg tablet (immediate release) 5 mg 1 tab(s), Oral, q4h oxycodone 5 mg tablet (immediate release) 10 mg 2 tab(s), Oral, q4h prochlorperazine 10 mg/2 mL vial 5 mg 1 mL, IV Push, q6h sodium biphosphate-sodium phosphate 19 gm-7 gm Enema 133 mL, Rectal, qDay Lab Results 01/16 05:40 WBC: 15.9 H Hgb: 11.9 L Hct: 34.9 L Platelet: 264 Neutrophil %: 69.2 Glucose Level: 104 Sodium Level: 143 Potassium Level: 4.5 BUN: 20 H Creatinine Lvl (s): 0.86 01/15 06:05 Glucose Level: 102 Sodium Level: 143 Potassium Level: 4.1 BUN: 19 H Creatinine Lvl (s): 0.99 Assessment/Plan 1. Osteoarthritis 2. Knee arthropathy 3. History of DVT in adulthood 4. COPD without exacerbation 5. HTN (hypertension) Osteoarthritis s/p right total knee arthroplasty. Management per primary team. Pain well controlled Hx DVT- Patient developed DVT after last surgery 07/05. Continue apixiban COPD- Not in acute exacerbation HTN- SBP goal 140 or less. Continue home antihypertensives. Patient is medically optimized for discharge. DVT prophylaxis:SCDs Labs, diagnostics, and progress notes reviewed as noted in HPI Code Status:Full Code Plan of care discussed with patient. All questions answered. Patient verbalizes understanding is agreeable to plan of care. This dictation was performed using voice recognition software and may include grammatical and/or spelling errors. Digitally Signed by BECK PECK on 01/16/2023 02:24 PM [facility] 01-16-2023 Hospital Discharge instructions Patient Education 01/16/2023 11:29:25 5 - [facility] Post-op Instruction 12/2016 (Custom)(CUSTOM) [facility] Post-operative Instructions PLEASE FOLLOW [facility] POST-OP INSTRUCTIONS GIVEN WATCH FOR SIGNS OF INFECTION: call the office ([phone]) if experencing any of the following: (Usually appears 36-48 hours after surgery) Increased temperature (101 degrees Fahrenheit or higher) Redness or swelling Increased uncontrolled pain Foul odor or drainage Calf discomfort Significant swelling Or if having any chest pain, shortness of breath, or difficulty breathing or swallowing call the office or go the nearest Emergency Room. If you have any questions, please call your doctor at the number listed on your follow up instructions. Form: 338A ([id number]) R: 09/16 Follow Up Care 07/04/2022 10:35:51 With:[facility] Therapy Address: [address] [place] [address] [phone] When:01/21/2023 09:00:00 Comments:This is your Physical Therapy appt. With:FELIPE LAU PA-C, Orthopedic Address: [facility] [address] [place] [phone] When:01/28/2023 13:45:00 Comments:This is your Ortho Follow up appt. [facility] 01-16-2023 Note Discharge Instructions Thank you for allowing [facility] to assist you with your healthcare needs. The following is important discharge information regarding your hospital visit. Your Care Team Gricelda Oliver MD [facility] Your Diagnosis COPD without exacerbation History of DVT in adulthood HTN (hypertension) Knee arthropathy Osteoarthritis Other acute postprocedural pain What to do next Follow Up Appointments Follow Up with FELIPE LAU PA-C, Orthopedic When 01/28/2023 01:45 PM EDT Why: This is your Ortho Follow up appt. Where: [facility] [address] [place] [address]- Follow Up with Yadiel Mendez Therapy When 01/21/2023 09:00 AM EDT Why: This is your Physical Therapy appt. Where: [address] [place] [phone]- [phone] The Following Activity and Diet Have Been Ordered for You Discharge Activity - Ordered -- Resume your pre-hospitalization activity, 01/16/23 8:05:00 EDT Discharge Diet - Ordered -- No changes were made to your diet during your hospital stay. Please resume your pre hospitalization diet on discharge., 01/16/23 8:05:00 EDT Allergies NKA Medications Please ask your primary doctor or pharmacist before taking any other medication not listed, including over the counter drugs, herbal medications, vitamins and or supplements as they may interact with your home medications. What How Much When Why Instructions Last Dose New acetaminophen (Tylenol) 1,000 Milligram by mouth Every 6 hours 01/16 @ 8am New diphenhydrAMINE (Benadryl 25 mg oral tablet) 1 tab(s) by mouth Every 6 hours as needed for Itching not given New docusate-senna (Senokot S 50 mg-8.6 mg oral tablet) 2 tab(s) by mouth Two (2) times a day Duration: 5 Days Pickup at [facility] #[id number] 01/16 @ 8am New doxycycline (doxycycline hyclate 100 mg oral capsule) 1 cap by mouth Every 12 hours Duration: 14 Days Pickup at [facility] #[id number] 01/16 @ 8am New famotidine (Pepcid 20 mg oral tablet) 1 tab(s) by mouth Once a day Pickup at [facility] #[id number] 01/16 @ 8am New ondansetron (ondansetron 4 mg oral tablet) 1 tab(s) by mouth Every 8 hours as needed for Nausea/Vomiting Pickup at [facility] #[id number] New oxyCODONE (oxyCODONE 5 mg oral tablet ( IMMEDIATE release )) 1-2 tab(s) by mouth Every 4 hours as needed for as needed for pain Knee arthropathy Other acute postprocedural pain Duration: 7 Days Pickup at [facility] #[id number] 01/16 @ 12pm Unchanged albuterol (Albuterol (Eqv-ProAir HFA) 90 mcg/ inh inhalation aerosol) 2 puff(s) by inhalation Every 4 hours as needed for Shortness of breath or wheezing per patient takes daily every 4 to 6 days Unchanged apixaban (Eliquis 5 mg oral tablet) 1 tab(s) by mouth Two (2) times a day 01/16 @ 8am Unchanged cholecalciferol (Vitamin D3 25 mcg (1000 intl units) oral tablet) 2 tab(s) by mouth Every day not given Unchanged hydroCHLOROthiazide (hydroCHLOROthiazide 50 mg oral tablet) 1 tab(s) by mouth Once a day 01/16 @ 8am Unchanged multivitamin (Multivitamin) 1 tab(s) by mouth Every day 01/16 @ 11am Unchanged sertraline (sertraline 100 mg oral tablet) 1 tab(s) by mouth Every day 01/16 @ 8am Pharmacy Information [id number]: [address], [place] [phone] Please take this list to your next doctor s visit. Bring all medications you take, including over the counter medications, herbals and other supplements with you to your doctor s visit. Patients and families are reminded to discard old lists and to update any records with all medication providers or retail pharmacies. Medication Leaflets docusate and senna (DOK connie sate and SEN a) Colace 2-in-1, Senexon-S, Senna Plus, Senna S, Senna-Time S, Senokot S, SenoSol-SS, Stool Softener + Stimulant Laxative, Stool Softener with Laxative What is the most important information I should know about docusate and senna? Use exactly as directed on the label, or as prescribed by your doctor. What is docusate and senna? Docusate is a stool softener. Senna is a laxative. Docusate and senna is a combination medicine used to treat occasional constipation. Docusate and senna may also be used for purposes not listed in this medication guide. What should I discuss with my healthcare provider before using docusate and senna? You should not use this medicine if you are allergic to docusate or senna, or if you are also taking mineral oil. Ask a doctor or pharmacist if this medicine is safe to use if you have ever had: nausea or vomiting; stomach pain; a sudden change in bowel habits that lasts for 2 weeks or longer; or an intestinal disorder such as Crohn's disease or ulcerative colitis. Ask a doctor before using this medicine if you are or . Do not give this medicine to a child younger than 2 years old without medical advice. How should I use docusate and senna? Use exactly as directed on the label, or as prescribed by your doctor. Take docusate and senna with a full glass of water. It may be best to take this medicine at night or at bedtime. Docusate and senna should cause you to have a bowel movement within 6 to 12 hours. Do not take docusate and senna for longer than 7 days in a row, unless your doctor tells you to. Call your doctor if your constipation does not improve or if it gets worse after taking docusate and senna. Store at room temperature away from moisture and heat. What happens if I miss a dose? Since docusate and senna is used when needed, you may not be on a dosing schedule. Skip any missed dose if it's almost time for your next dose. Do not use two doses at one time. What happens if I overdose? Seek emergency medical attention or call the Poison Help line at . Overdose symptoms may include nausea, vomiting, stomach pain, or diarrhea. What should I avoid while using docusate and senna? Ask a doctor or pharmacist before using any other laxative or other stool softener that may contain ingredients similar to docusate or senna. What are the possible side effects of docusate and senna? Get emergency medical help if you have signs of an allergic reaction: hives; difficulty breathing; swelling of your face, lips, tongue, or throat. Stop using docusate and senna and call your doctor at once if you have: rectal bleeding; severe stomach pain, nausea, vomiting; or no bowel movement. Common side effects may include: gas, bloating; diarrhea; or mild nausea. This is not a complete list of side effects and others may occur. Call your doctor for medical advice about side effects. You may report side effects to FDA at 3-375-MYJ-1415. What other drugs will affect docusate and senna? Other drugs may affect docusate and senna, including prescription and tbwk-zff-afwcevt medicines, vitamins, and herbal products. Tell your doctor about all your current medicines and any medicine you start or stop using. Where can I get more information? Your pharmacist can provide more information about docusate and senna. Remember, keep this and all other medicines out of the reach of children, never share your medicines with others, and use this medication only for the indication prescribed. Every effort has been made to ensure that the information provided by [employer]') is accurate, up-to-date, and complete, but no guarantee is made to that effect. Drug information contained herein may be time sensitive. [employer] information has been compiled for use by healthcare practitioners and consumers in the [place] and therefore [employer] does not warrant that uses outside of the [place] are appropriate, unless specifically indicated otherwise. [employer] drug information does not endorse drugs, diagnose patients or recommend therapy. [employer] drug information is an informational resource designed to assist licensed healthcare practitioners in caring for their patients and/or to serve consumers viewing this service as a supplement to, and not a substitute for, the expertise, skill, knowledge and judgment of healthcare practitioners. The absence of a warning for a given drug or drug combination in no way should be construed to indicate that the drug or drug combination is safe, effective or appropriate for any given patient. [employer] does not assume any responsibility for any aspect of healthcare administered with the aid of information [employer] provides. The information contained herein is not intended to cover all possible uses, directions, precautions, warnings, drug interactions, allergic reactions, or adverse effects. If you have questions about the drugs you are taking, check with your doctor, nurse or pharmacist. Copyright 1827-3998 [employer]. Version: 5.01. Revision Date: 12/17/2022. doxycycline (oral/injection) (DOX nicki carlton) Acticlate, Adoxa, Alodox, Avidoxy, Doryx, Doryx MPC, Lymepak, Mondoxyne NL, Monodox, Morgidox, Morgidox [id number], Morgidox 0r409dm, O[place]bo, Oracea, Targadox, Vibramycin, Vibramycin Calcium, Vibramycin Monohydrate What is the most important information I should know about doxycycline? You should not take this medicine if you are allergic to any tetracycline antibiotic. Children younger than 8 years old should use doxycycline only in cases of severe or life-threatening conditions. This medicine can cause permanent yellowing or graying of the teeth in children Using doxycycline during could harm the unborn baby or cause permanent tooth discoloration later in the baby's life. What is doxycycline? Doxycycline is a tetracycline antibiotic that Doxycycline is used to treat many different bacterial infections, such as acne, urinary tract infections, intestinal infections, eye infections, gonorrhea, chlamydia, periodontitis (gum disease), and others. Doxycycline is also used to treat blemishes, bumps, and acne-like lesions caused by rosacea. Doxycycline will not treat facial redness caused by rosacea. Some forms of doxycycline are used to prevent malaria, to treat anthrax, or to treat infections caused by mites, ticks, or lice. Doxycycline may also be used for purposes not listed in this medication guide. What should I discuss with my healthcare provider before taking doxycycline? You should not take this medicine if you are allergic to doxycycline or other tetracycline antibiotics such as demeclocycline, minocycline, tetracycline, or tigecycline. Tell your doctor if you have ever had: liver disease; kidney disease; asthma or sulfite allergy; increased pressure inside your skull; or if you also take isotretinoin, seizure medicine, or a blood thinner such as warfarin (Coumadin). If you are using doxycycline to treat gonorrhea, your doctor may test you to make sure you do not also have syphilis, another sexually transmitted disease. Taking this medicine during may affect tooth and bone development in the unborn baby. Taking doxycycline during the last half of can cause permanent tooth discoloration later in the baby's life. Tell your doctor if you are or if you become . Doxycycline can make control pills less effective. Ask your doctor about using a non-hormonal control (condom, diaphragm with spermicide) to prevent . Doxycycline can pass into breast milk and may affect bone and tooth development in a nursing . Do not breastfeed while you are taking doxycycline. Doxycycline can cause permanent yellowing or graying of the teeth in children younger than 8 years old. Children should use doxycycline only in cases of severe or life-threatening conditions such as anthrax or [place] spotted fever. The benefit of treating a serious condition may outweigh any risks to the child's tooth development. How should I take doxycycline? Follow all directions on your prescription label and read all medication guides or instruction sheets. Use the medicine exactly as directed. Take doxycycline with a full glass of water. Drink plenty of liquids while you are taking doxycycline. Read and carefully follow any Instructions for Use provided with your medicine. Ask your doctor or pharmacist if you do not understand these instructions. Most brands of doxycyline may be taken with food or milk if the medicine upsets your stomach. Different brands of doxycycline may have different instructions about taking them with or without food. Take Oracea on an empty stomach, at least 1 hour before or 2 hours after a meal. You may need to split a doxycycline tablet to get the correct dose. Follow your doctor's instructions. Swallow a delayed-release capsule or tablet whole. Do not crush, chew, break, or open it. Measure liquid medicine with the dosing syringe provided, or with a special dose-measuring spoon or medicine cup. If you do not have a dose-measuring device, ask your pharmacist for one. If you take doxycycline to prevent malaria: Start taking the medicine 1 or 2 days before entering an area where malaria is common. Continue taking the medicine every day during your stay and for at least 4 weeks after you leave the area. Doxycycline is usually given by injection only if you are unable to take the medicine by mouth. A healthcare provider will give you this injection as an infusion into a vein. Use this medicine for the full prescribed length of time, even if your symptoms quickly improve. Skipping doses can increase your risk of infection that is resistant to medication. Doxycycline will not treat a viral infection such as the flu or a common cold. Store at room temperature away from moisture, heat, and light. Throw away any unused medicine after the expiration date on the label has passed. Using doxycycline can cause damage to your kidneys. What happens if I miss a dose? Take the medicine as soon as you can, but skip the missed dose if it is almost time for your next dose. Do not take two doses at one time. What happens if I overdose? Seek emergency medical attention or call the Poison Help line at . What should I avoid while taking doxycycline? Do not take iron supplements, multivitamins, calcium supplements, antacids, or laxatives within 2 hours before or after taking doxycycline. Avoid taking any other antibiotics with doxycycline unless your doctor has told you to. Doxycycline could make you sunburn more easily. Avoid sunlight or tanning beds. Wear protective clothing and use sunscreen (SPF 30 or higher) when you are outdoors. Antibiotic medicines can cause diarrhea, which may be a sign of a new infection. If you have diarrhea that is watery or bloody, call your doctor. Do not use anti-diarrhea medicine unless your doctor tells you to. What are the possible side effects of doxycycline? Get emergency medical help if you have signs of an allergic reaction (hives, difficult breathing, swelling in your face or throat) or a severe skin reaction (fever, sore throat, burning in your eyes, skin pain, red or purple skin rash that spreads and causes blistering and peeling). Seek medical treatment if you have a serious drug reaction that can affect many parts of your body. Symptoms may include: skin rash, fever, swollen glands, flu-like symptoms, muscle aches, severe weakness, unusual bruising, or yellowing of your skin or eyes. This reaction may occur several weeks after you began using doxycycline. Call your doctor at once if you have: severe stomach pain, diarrhea that is watery or bloody; throat irritation, trouble swallowing; chest pain, irregular heart rhythm, feeling short of breath; little or no urination; low white blood cell counts--fever, chills, swollen glands, body aches, weakness, pale skin, easy bruising or bleeding; increased pressure inside the skull--severe headaches, ringing in your ears, dizziness, nausea, vision problems, pain behind your eyes; or signs of liver or pancreas problems--loss of appetite, upper stomach pain (that may spread to your back), tiredness, nausea or vomiting, fast heart rate, dark urine, jaundice (yellowing of the skin or eyes). Common side effects may include: nausea, vomiting, upset stomach, loss of appetite; mild diarrhea; skin rash or itching; darkened skin color; or vaginal itching or discharge. This is not a complete list of side effects and others may occur. Call your doctor for medical advice about side effects. You may report side effects to FDA at 4-416-JPU-4931. What other drugs will affect doxycycline? Sometimes it is not safe to use certain medications at the same time. Some drugs can affect your blood levels of other drugs you take, which may increase side effects or make the medications less effective. Other drugs may affect doxycycline, including prescription and dypv-pth-ksdmrzg medicines, vitamins, and herbal products. Tell your doctor about all your current medicines and any medicine you start or stop using. Where can I get more information? Your pharmacist can provide more information about doxycycline. Remember, keep this and all other medicines out of the reach of children, never share your medicines with others, and use this medication only for the indication prescribed. Every effort has been made to ensure that the information provided by [employer] is accurate, up-to-date, and complete, but no guarantee is made to that effect. Drug information contained herein may be time sensitive. [employer] information has been compiled for use by healthcare practitioners and consumers in the [place] and therefore [employer] does not warrant that uses outside of the [place] are appropriate, unless specifically indicated otherwise. [employer] drug information does not endorse drugs, diagnose patients or recommend therapy. [employer] drug information is an informational resource designed to assist licensed healthcare practitioners in caring for their patients and/or to serve consumers viewing this service as a supplement to, and not a substitute for, the expertise, skill, knowledge and judgment of healthcare practitioners. The absence of a warning for a given drug or drug combination in no way should be construed to indicate that the drug or drug combination is safe, effective or appropriate for any given patient. [employer] does not assume any responsibility for any aspect of healthcare administered with the aid of information [employer] provides. The information contained herein is not intended to cover all possible uses, directions, precautions, warnings, drug interactions, allergic reactions, or adverse effects. If you have questions about the drugs you are taking, check with your doctor, nurse or pharmacist. Copyright [id number] [employer] [facility]. Version: 23.. Revision Date: 12/12/2022. oxycodone (ox i KOE done) Oxaydo, OxyCONTIN, Roxicodone, RoxyBond, Xtampza ER What is the most important information I should know about oxycodone? MISUSE OF OPIOID MEDICINE CAN CAUSE ADDICTION, OVERDOSE, OR . Keep the medication in a place where others cannot get to it. Taking opioid medicine during may cause life-threatening withdrawal symptoms in the . Fatal side effects can occur if you use opioid medicine with alcohol, or with other drugs that cause drowsiness or slow your breathing. What is oxycodone? Oxycodone is an opioid pain medication used to treat moderate to severe pain. The extended-release form of oxycodone is for hvhicm-oft-spzsq treatment of pain and should not be used on an as-needed basis for pain. Oxycodone may also be used for purposes not listed in this medication guide. What should I discuss with my healthcare provider before using oxycodone? You should not use oxycodone if you are allergic to it, or if you have: severe asthma or breathing problems; or a blockage in your stomach or intestines. You should not use oxycodone unless you are already using a similar opioid medicine and are tolerant to it. Most brands of oxycodone are not approved for use in people under 18. OxyContin should not be given to a child younger than 11 years old. Tell your doctor if you have ever had: breathing problems, sleep apnea; a head injury, or seizures; drug or alcohol addiction, or mental illness; liver or kidney disease; urination problems; or problems with your gallbladder, pancreas, or thyroid. If you use opioid medicine while you are , your baby could become dependent on the drug. This can cause life-threatening withdrawal symptoms in the baby after it is born. Babies born dependent on opioids may need medical treatment for several weeks. Ask a doctor before using opioid medicine if you are . Tell your doctor if you notice severe drowsiness or slow breathing in the nursing baby. How should I use oxycodone? Follow the directions on your prescription label and read all medication guides. Never use oxycodone in larger amounts, or for longer than prescribed. Tell your doctor if you feel an increased urge to take more of this medicine. Never share opioid medicine with another person, especially someone with a history of drug abuse or addiction. MISUSE CAN CAUSE ADDICTION, OVERDOSE, OR . Keep the medication in a place where others cannot get to it. Selling or giving away opioid medicine is against the law. Stop taking all other lqxxqp-lwy-nozaw opioid pain medicines when you start taking extended-release oxycodone. Take oxycodone with food. Swallow the capsule or tablet whole to avoid exposure to a potentially fatal overdose. Do not crush, chew, break, open, or dissolve. If you cannot swallow a capsule whole, open it and sprinkle the medicine into a spoonful of pudding or applesauce. Swallow the mixture right away without chewing. Do not save it for later use. Never crush or break an oxycodone pill to inhale the powder or mix it into a liquid to inject the drug into your vein. This can cause in . Measure liquid medicine carefully. Use the dosing syringe provided, or use a medicine dose-measuring device (not a kitchen spoon). You should not stop using oxycodone suddenly. Follow your doctor's instructions about tapering your dose. Store at room temperature, away from heat, moisture, and light. Keep track of your medicine. Oxycodone is a drug of abuse and you should be aware if anyone is using your medicine improperly or without a prescription. Do not keep leftover opioid medication. Just one dose can cause in someone using this medicine accidentally or improperly. Ask your pharmacist where to locate a drug take-back disposal program. If there is no take-back program, flush the unused medicine down the toilet. What happens if I miss a dose? Since oxycodone is used for pain, you are not likely to miss a dose. Skip any missed dose if it is almost time for your next dose. Do not use two doses at one time. What happens if I overdose? Seek emergency medical attention or call the Poison Help line at . An opioid overdose can be fatal, especially in a child or other person using the medicine without a prescription. Overdose symptoms may include severe drowsiness, pinpoint pupils, slow breathing, or no breathing. Your doctor may recommend you get naloxone (a medicine to reverse an opioid overdose) and keep it with you at all times. A person caring for you can give the naloxone if you stop breathing or don't wake up. Your caregiver must still get emergency medical help and may need to perform CPR (cardiopulmonary resuscitation) on you while waiting for help to arrive. Anyone can buy naloxone from a pharmacy or local health department. Make sure any person caring for you knows where you keep naloxone and how to use it. What should I avoid while using oxycodone? Do not drink alcohol. Dangerous side effects or could occur. Avoid driving or operating machinery until you know how oxycodone will affect you. Dizziness or severe drowsiness can cause falls or other accidents. Avoid medication errors. Always check the brand and strength of oxycodone you get from the pharmacy. What are the possible side effects of oxycodone? Get emergency medical help if you have signs of an allergic reaction: hives; difficult breathing; swelling of your face, lips, tongue, or throat. Opioid medicine can slow or stop your breathing, and may occur. A person caring for you should give naloxone and/or seek emergency medical attention if you have slow breathing with long pauses, blue colored lips, or if you are hard to wake up. Call your doctor at once if you have: noisy breathing, sighing, shallow breathing, breathing that stops during sleep; a slow heart rate or weak pulse; a light-headed feeling, like you might pass out; confusion, unusual thoughts or behavior; seizure (convulsions); low cortisol levels-- nausea, vomiting, loss of appetite, dizziness, worsening tiredness or weakness; or high levels of serotonin in the body--agitation, hallucinations, fever, sweating, shivering, fast heart rate, muscle stiffness, twitching, loss of coordination, nausea, vomiting, diarrhea. Serious breathing problems may be more likely in older adults and in those who are debilitated or have wasting syndrome or chronic breathing disorders. Common side effects may include: drowsiness, headache, dizziness, tiredness; or constipation, stomach pain, nausea, vomiting. This is not a complete list of side effects and others may occur. Call your doctor for medical advice about side effects. You may report side effects to FDA at 8-899-XTY-0330. What other drugs will affect oxycodone? You may have breathing problems or withdrawal symptoms if you start or stop taking certain other medicines. Tell your doctor if you also use an antibiotic, antifungal medication, heart or blood pressure medication, seizure medication, or medicine to treat HIV or hepatitis C. Opioid medication can interact with many other drugs and cause dangerous side effects or . Be sure your doctor knows if you also use: cold or allergy medicines, bronchodilator asthma/COPD medication, or a diuretic ('water pill'); medicines for motion sickness, irritable bowel syndrome, or overactive bladder; other opioids--opioid pain medicine or prescription cough medicine; a sedative like Valium--diazepam, alprazolam, lorazepam, Xanax, Klonopin, Versed, and others; drugs that make you sleepy or slow your breathing--a sleeping pill, muscle relaxer, medicine to treat mood disorders or mental illness; or drugs that affect serotonin levels in your body--a stimulant, or medicine for depression, Parkinson's disease, migraine headaches, serious infections, or nausea and vomiting. This list is not complete and many other drugs may affect oxycodone. This includes prescription and ngll-the-isvhqhd medicines, vitamins, and herbal products. Not all possible drug interactions are listed here. Where can I get more information? Your pharmacist can provide more information about oxycodone. Remember, keep this and all other medicines out of the reach of children, never share your medicines with others, and use this medication only for the indication prescribed. Every effort has been made to ensure that the information provided by [employer] is accurate, up-to-date, and complete, but no guarantee is made to that effect. Drug information contained herein may be time sensitive. [employer] information has been compiled for use by healthcare practitioners and consumers in the [place] and therefore [employer] does not warrant that uses outside of the [place] are appropriate, unless specifically indicated otherwise. [employer] drug information does not endorse drugs, diagnose patients or recommend therapy. [employer] drug information is an informational resource designed to assist licensed healthcare practitioners in caring for their patients and/or to serve consumers viewing this service as a supplement to, and not a substitute for, the expertise, skill, knowledge and judgment of healthcare practitioners. The absence of a warning for a given drug or drug combination in no way should be construed to indicate that the drug or drug combination is safe, effective or appropriate for any given patient. [facility] does not assume any responsibility for any aspect of healthcare administered with the aid of information [facility] provides. The information contained herein is not intended to cover all possible uses, directions, precautions, warnings, drug interactions, allergic reactions, or adverse effects. If you have questions about the drugs you are taking, check with your doctor, nurse or pharmacist. Copyright [id number] [facility]. Version: 16.. Revision Date: 12/14/2022. famotidine (oral/injection) (fam [place] ti christal) Heartburn Relief, Pepcid, Pepcid AC, Pepcid AC Maximum Strength, Zantac 360 What is the most important information I should know about famotidine? Follow all directions on the label and package. Use exactly as directed. What is famotidine? Famotidine is used to treat and prevent ulcers in the stomach and intestines. It also treats conditions in which the stomach produces too much acid, such as Judd-Loza syndrome. Famotidine also treats gastroesophageal reflux disease (GERD) and other conditions in which acid backs up from the stomach into the esophagus, causing heartburn. The Zantac 360 brand of this medicine does not contain ranitidine, a medicine that was withdrawn from market in the [place]. Famotidine may also be used for purposes not listed in this medication guide. What should I discuss with my healthcare provider before taking famotidine? Heartburn can feel like a heart attack. Get emergency medical help if you have chest pain that spreads to your jaw or shoulder. You should not use this medicine if you are allergic to famotidine or similar medicines such as ranitidine (Zantac), cimetidine (Tagamet), or nizatidine (Axid). Ask a doctor or pharmacist if this medicine is safe to use if you have: kidney disease; liver disease; cancer stomach; or long QT syndrome (in you or a family member). Ask a doctor before using this medicine if you are or . How should I take famotidine? Use exactly as directed on the label, or as prescribed by your doctor. Famotidine oral is taken by mouth. Famotidine injection is given in a vein if you are unable to take the medicine by mouth. You may take famotidine oral with or without food. Measure liquid medicine with the supplied syringe or a dose-measuring device (not a kitchen spoon). Most ulcers heal within 4 weeks of famotidine treatment, but it may take up to 8 weeks of using this medicine before your ulcer heals. Keep using the medication as directed. Call your doctor if the condition you are treating with famotidine does not improve, or if it gets worse while using famotidine. Your treatment may also include changes in diet or lifestyle habits. Follow all instructions of your doctor or dietitian. Store at room temperature away from moisture, heat, and light. Do not allow the liquid medicine to freeze. Throw away any unused famotidine liquid that is older than 30 days. What happens if I miss a dose? Take the medicine as soon as you can, but skip the missed dose if it is almost time for your next dose. Do not take two doses at one time. What happens if I overdose? Seek emergency medical attention or call the Poison Help line at . What should I avoid while taking famotidine? Drinking alcohol may increase the risk of damage to your stomach. Avoid taking other stomach acid reducers unless your doctor has told you to. However, you may take an antacid (such as Maalox, Mylanta, Gaviscon, Milk of Magnesia, Rolaids, or Tums) with famotidine. What are the possible side effects of famotidine? Get emergency medical help if you have signs of an allergic reaction: hives; difficult breathing; swelling of your face, lips, tongue, or throat. Stop using famotidine and call your doctor at once if you have: confusion, hallucinations, agitation, lack of energy; a seizure; fast or pounding heartbeats, sudden dizziness (like you might pass out); or unexplained muscle pain, tenderness, or weakness especially if you also have fever, unusual tiredness, and dark colored urine. Some side effects may be more likely in older adults and in people who have severe kidney disease. Common side effects may include: headache; dizziness; or constipation or diarrhea. This is not a complete list of side effects and others may occur. Call your doctor for medical advice about side effects. You may report side effects to FDA at 2-483-GOT-5233. What other drugs will affect famotidine? Famotidine oral can make it harder for your body to absorb other medicines you take by mouth. Tell your doctor if you are taking: cefditoren; dasatinib; delavirdine; fosamprenavir; or tizanidine (if you are taking famotidine liquid). This list is not complete. Other drugs may affect famotidine, including prescription and vjqp-ohe-ideculr medicines, vitamins, and herbal products. Not all possible drug interactions are listed here. Where can I get more information? Your doctor or pharmacist can provide more information about famotidine. Remember, keep this and all other medicines out of the reach of children, never share your medicines with others, and use this medication only for the indication prescribed. Every effort has been made to ensure that the information provided by [employer]. ('[employer]') is accurate, up-to-date, and complete, but no guarantee is made to that effect. Drug information contained herein may be time sensitive. [employer] information has been compiled for use by healthcare practitioners and consumers in the [place] and therefore [employer] does not warrant that uses outside of the [place] are appropriate, unless specifically indicated otherwise. [employer] drug information does not endorse drugs, diagnose patients or recommend therapy. [employer] drug information is an informational resource designed to assist licensed healthcare practitioners in caring for their patients and/or to serve consumers viewing this service as a supplement to, and not a substitute for, the expertise, skill, knowledge and judgment of healthcare practitioners. The absence of a warning for a given drug or drug combination in no way should be construed to indicate that the drug or drug combination is safe, effective or appropriate for any given patient. [employer] does not assume any responsibility for any aspect of healthcare administered with the aid of information [employer] provides. The information contained herein is not intended to cover all possible uses, directions, precautions, warnings, drug interactions, allergic reactions, or adverse effects. If you have questions about the drugs you are taking, check with your doctor, nurse or pharmacist. Copyright 3719-1435 [employer] Version: .. Revision Date: 12/03/2022. Education Materials [facility] Post-operative Instructions PLEASE FOLLOW [facility] POST-OP INSTRUCTIONS GIVEN WATCH FOR SIGNS OF INFECTION: call the office ([phone]) if experencing any of the following: (Usually appears 36-48 hours after surgery) Increased temperature (101 degrees Fahrenheit or higher) Redness or swelling Increased uncontrolled pain Foul odor or drainage Calf discomfort Significant swelling Or if having any chest pain, shortness of breath, or difficulty breathing or swallowing call the office or go the nearest Emergency Room. If you have any questions, please call your doctor at the number listed on your follow up instructions. Form: 338A ([id number]) R: 09/16 Additional Information VACCINATE! IT SAVES LIVES! Members of the community who have not yet received the COVID-19 vaccine and would like to receive it can visit one of [facility] vaccine clinics. There are many vaccine clinic locations within the [facility]. For locations and available times, please visit [email or web address].[place].gov/. It is important to note that some COVID mobile vaccine clinics are held outdoors and may be canceled in rainy or stormy conditions. To learn more about pediatric vaccinations (ages 5-11), we invite you to visit the [employer] webpage. [email or web address] To learn more about the COVID-19 vaccine, we invite you to visit the CDC website for a list of frequently asked questions.https://www.cdc.gov/cor onavirus/2019-ncov/vaccines/faq.h tml [employer] Patient Portal Access Instructions: Stay connected with your healthcare team and access your personal medical information anytime with the [employer] Patient Portal. Please follow the directions below to create your [employer] account: 1.Access the email account you provided upon registration to the hospital/physician office.2.Look for an invitation email from [facility].3.Open the email and access the invitation link: Accept Invitation to [employer].4.Fill in the required benson to create your account. To access your account, visit [employer]. Click the blue button labeled "Access Patient Portal" and then log in with the username and password that you created in the steps above. You will be able to view your test results, lab results, a summary of your visits, upcoming appointments and more. There is also a convenient messaging option where you can send secure messages to your provider. In addition, you will have the ability to download any documents or summaries to your computer and/or send the information securely to a physician. Remember that your healthcare information is confidential, so carefully consider who you will allow to register on the [facility] [employer] Patient Portal for access to your information. You can also access the [facility] 10-[employer] Patient Portal on the [facility] jacklyn. Simply click on "Patient Portal" and then log into your account. If you would like to receive a full copy of your medical records, please contact the [facility] Medical Records Department by calling [phone], Saturday through Saturday between 8 a.m. and 4:30 p.m. HOW TO SAFELY DISPOSE OF PRESCRIPTION MEDICATIONS Please use one of the following methods to safely dispose of your unused medications. 1.Use a drug disposal kit: the drug disposal pouch allows you to safely discard your old and unused drugs. Ask your nurse to give you one when you are discharged.2.Visit a local take-back location: Many local pharmacies and police departments have programs that collect old and unwanted prescription drugs. Call your local pharmacy or go to http://VOSS.PeopleCube/9S6Vi0q to find one close to you.3.Make use of household items: Use cat litter or old coffee grounds to dispose medications if other options are not available. Mix your drugs with these household products, seal them in an airtight container and throw it into the garbage. Call [facility]: [phone] to be sure your drugs can be disposed of in this way. Some medicines may require a different approach.4.Never flush your medications down the toilet. IF YOU HAVE BEEN PRESCRIBED AN OPIOID FOR PAIN If you have been prescribed an opioid (such as hydrocodone, oxycodone or morphine), it is critical to understand the possible side effects and risks of opioid pain medications. Even when taken as directed, opioids can have several side effects including: Tolerance, meaning you might need to take more of a medication for the same pain relief. Nausea, vomiting and/or constipation. Sleepiness, dizziness, dry mouth, confusion, depression or itching. Physical dependence, meaning you have withdrawal symptoms when a medication is stopped, can develop within a few days. KNOW YOUR RESPONSIBILITIES It is important to know exactly how much and how often to take the opioid pain medications you are prescribed. Never take opioids in higher amounts or more often than prescribed. Do not combine opioids with alcohol or other drugs that cause drowsiness, such as benzodiazepines, also known as benzos, including diazepam and alprazolam, muscle relaxants or sleep aids. Never sell or share prescription opioids. This is illegal. Store opioids in a secure place and out of reach of others (including children, family, friends and visitors). The last page of this document has been signed and retained as a CHART COPY. Signatures Patient Education Materials 5 - [facility] Post-op Instruction 12/2016 (Custom)(CUSTOM) Medication Leaflets docusate and senna, doxycycline (oral/inj (more content not included)... [facility] 01-16-2023 Note Date of Service 01-16-2023 Chief Complaint Right knee pain Subjective Patient is doing well. No acute events overnight. He did have to have his dressing changed due to drainage over the distal pin sites. New dressing was placed overnight. New stockings were given. Overall he patient reports being comfortable and doing well. No chest pain or shortness of breath. Objective Vitals and Measurements T: 36.5 C (Oral) TMIN: 36 C TMAX: 36.7 C (Oral) HR: 84(Apical) RR: 16 BP: 104/61 SpO2: 97% HT: 172.7 cm WT: 119 kg BMI: 39.9 Intake and Output 7AM Yesterday to 7AM Today Intake and Output (Last 24 hours) Intake Administration Information 1056.33 Oral Intake 720.00 Supplement Intake 237.00 Output Intra-Op EBL 50.00 Stool Count 0.00 Urine Count 7.00 Total Summary Total Intake 2013.33 Total Output 50.00 Fluid Balance 1963.33 Physical Exam General: No acute distress, alert and oriented x3 Right lower extremity: Dressing is clean dry and intact with a small area of distal saturation and central portion of the main dressing. Distal pin site dressing was reinforced and changed overnight. Current dressing is dry. Appropriate postoperative swelling Calves are soft and supple Sensation is intact light touch saphenous, sural, superficial peroneal, deep peroneal tibial nerve distributions Motor is intact dorsiflexion, EHL, plantar flexion Weight Dosing Weight: 119 kg (01/15/23) Dosing Weight: 119 kg (01/15/23) Assessment/Plan COPD without exacerbation Patient is doing well at this time. Managed per medicine service History of DVT in adulthood Patient will resume Eliquis today full-strength dose. Definitive end date per primary care physician HTN (hypertension) Well-maintained overnight. Appreciate medical management Knee arthropathy Postop day 1 right total knee replacement 1. Pain control: Continue current regimen. Patient doing well. Minimize narcotics when possible. 2. DVT prophylaxis: Patient will resume full-strength dose of Eliquis today. We did discuss bleeding risks associated with this as well as appropriate dressing changes and wound care. SCDs in house 3. Physical therapy: Continue with inpatient physical therapy. Plan for discharge today with outpatient physical therapy at onsite physical therapy in [place]. 4. Wound dressing: Discussed with patient plan for dressing to discontinue after 5 days from surgery. 5. Labs: Are stable at this time. Slight reactive leukocytosis in relation to steroids yesterday. Hemoglobin is stable. 6. BMI greater than 40: Will place on doxycycline for 2 weeks postoperatively. Discussed with the patient need for probiotic while taking prolonged antibiotics. 7. Disposition: Patient did well overnight. Anticipate discharge today after therapy. Did discuss with patient DVT prophylaxis, physical therapy plan, patient will discontinue dressing 5 days postoperatively and antibiotics and need for probiotic. Patient demonstrated understanding of this plan and anticipates discharge home today. [facility] Office: Osteoarthritis Status post total knee replacement Orders: acetaminophen, Start: 01/15/23 10:01:00 EDT, Dose = 650 mg, = 2 tab(s), Oral, q4h, PRN, Temperature greater than 38.6 degrees C, 01/15/23 10:01:00 EDT acetaminophen, Start: 01/15/23 14:00:00 EDT, Dose = 1,000 mg, = 2 tab(s), Oral, q6h, 8 dose(s), Stop: 01/17/23 8:00:00 EDT, x 48 hours = 8 doses, 0, 01/15/23 10:01:00 EDT bisacodyl, Start: 01/16/23 9:00:00 EDT, Dose = 10 mg, = 2 tab(s), Oral, Once, Stop: 01/16/23 9:00:00 EDT, 01/16/23 9:00:00 EDT diphenhydrAMINE, Start: 01/15/23 10:01:00 EDT, Dose = 25 mg, = 0.5 mL, IV Push, q6h, PRN, Itching, 01/15/23 10:01:00 EDT diphenhydrAMINE, Start: 01/15/23 10:01:00 EDT, Dose = 25 mg, = 1 tab(s), Oral, q6h, PRN, Itching, 01/15/23 10:01:00 EDT docusate, Start: 01/15/23 10:01:00 EDT, Dose = 100 mg, = 1 cap(s), Oral, BID, 01/15/23 10:01:00 EDT docusate-senna, Start: 01/15/23 10:01:00 EDT, Dose = 2 tab(s), Tab, Oral, BID, 01/15/23 10:01:00 EDT doxycycline, Start: 01/16/23 9:00:00 EDT, Dose = 100 mg, = 1 cap(s), Oral, q12h, 7 day(s), Stop: 01/22/23 21:00:00 EDT, 0, 01/16/23 12:00:00 EDT famotidine, Start: 01/16/23 9:00:00 EDT, Dose = 20 mg, = 1 tab(s), Oral, qDay, 0, 01/15/23 10:01:00 EDT Lactated Ringers Infusion 1,000 mL, Start: 01/15/23 8:54:00 EDT, Rate: 100 mL/hr, 01/15/23 8:54:00 EDT magnesium hydroxide, Start: 01/15/23 12:00:00 EDT, Dose = 30 mL, Susp-Oral, Oral, Daily, 01/15/23 10:01:00 EDT morphine, Start: 01/15/23 10:01:00 EDT, Dose = 2 mg, = 1 mL, IV Push, q1h, PRN, Pain, scale 4-6, 0, 01/15/23 10:01:00 EDT multivitamin with minerals, Start: 01/15/23 12:00:00 EDT, Dose = 1 tab(s), Tab, Oral, qDayM, 0 ondansetron, Start: 01/16/23 10:01:00 EDT, Dose = 4 mg, = 2 mL, IV Push, q8h, PRN, Nausea, 01/16/23 10:01:00 EDT ondansetron, Start: 01/15/23 16:00:00 EDT, Dose = 4 mg, = 2 mL, IV Push, q8h, 3 dose(s), Stop: 01/16/23 8:00:00 EDT, 0, 01/15/23 10:01:00 EDT oxyCODONE, Start: 01/15/23 10:01:00 EDT, Dose = 10 mg, = 2 tab(s), Oral, q4h, PRN, Pain, scale 7-10, 01/15/23 10:01:00 EDT oxyCODONE, Start: 01/15/23 10:01:00 EDT, Dose = 5 mg, = 1 tab(s), Oral, q4h, PRN, Pain, scale 4-6, 01/15/23 10:01:00 EDT prochlorperazine, Start: 01/15/23 10:01:00 EDT, Dose = 5 mg, = 1 mL, IV Push, q6h, PRN, Nausea/Vomiting, 01/15/23 10:01:00 EDT sodium biphosphate-sodium phosphate, Start: 01/15/23 10:01:00 EDT, Dose = 133 mL, Enema, Rectal, qDay, PRN, Constipation, 01/15/23 10:01:00 EDT Antiembolism Stocking Application Thigh High Assign to Observation status Call Parameters Call Parameters Code Status Communication Order (continuous) Comments: resume regular anticoagulant on POD 1 Consult to Occupational Therapy Consult to Physician Diet Order Discontinue Order Discontinue Order Full Weight Bearing Ice application Ice application Comments: administer polar care starting in PACU Ice application Incentive Spirometer Intake and Output IV Catheter Insertion/Care Neurovascular Check lower extremity Neurovascular Check lower extremity Nutritional Supplement Order Oxygen Administration Post op exercises Pulse Oximeter - Intermittent Tension Pillow Application Up to Chair Vital Signs Vital Signs Digitally Signed by GRICELDA OLIVER MD on 01/16/2023 08:05 AM [facility] 01-15-2023 Note ORIGINAL EXAMINATION: POSTOPERATIVE KNEE TECHNIQUE: 2 views of theright knee were obtained. COMPARISON: CT right knee 01/07/2023 HISTORY: ORDERING SYSTEM PROVIDED HISTORY: Reason for Exam: Status Post Arthroplasty FINDINGS: There is normal mineralization. No acute fracture or dislocation is seen. The patient is status post right knee replacement with appropriate positioning of the prosthesis. There are postsurgical changes with a small joint effusion. IMPRESSION: Status post right knee replacement. 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 Assessment Postanesthesia assessment Vitals: Vital signs from flowsheet : Vital Signs 01/15/2023 8:45 EDT Heart Rate Monitored 81 bpm bpm Respiratory Rate - Anes 6 br/min br/min Systolic Blood Pressure Non-Invasive 110 mmHg mmHg Diastolic Blood Pressure Non-Invasive 81 mmHg mmHg 01/15/2023 8:40 EDT Heart Rate Monitored 63 bpm bpm Respiratory Rate - Anes 15 br/min br/min Systolic Blood Pressure Non-Invasive 92 mmHg mmHg Diastolic Blood Pressure Non-Invasive 60 mmHg mmHg 01/15/2023 8:35 EDT Heart Rate Monitored 66 bpm bpm Respiratory Rate - Anes 14 br/min br/min Systolic Blood Pressure Non-Invasive 95 mmHg mmHg Diastolic Blood Pressure Non-Invasive 63 mmHg mmHg 01/15/2023 8:30 EDT Temperature (Route Not Specified) 36 DegC DegC Heart Rate Monitored 62 bpm bpm Respiratory Rate - Anes 14 br/min br/min Systolic Blood Pressure Non-Invasive 94 mmHg mmHg Diastolic Blood Pressure Non-Invasive 59 mmHg mmHg 01/15/2023 8:25 EDT Heart Rate Monitored 62 bpm bpm Respiratory Rate - Anes 14 br/min br/min Systolic Blood Pressure Non-Invasive 91 mmHg mmHg Diastolic Blood Pressure Non-Invasive 54 mmHg mmHg 01/15/2023 8:20 EDT Heart Rate Monitored 61 bpm bpm Respiratory Rate - Anes 16 br/min br/min Systolic Blood Pressure Non-Invasive 102 mmHg mmHg Diastolic Blood Pressure Non-Invasive 63 mmHg mmHg 01/15/2023 8:15 EDT Temperature (Route Not Specified) 36 DegC DegC Heart Rate Monitored 62 bpm bpm Respiratory Rate - Anes 14 br/min br/min Systolic Blood Pressure Non-Invasive 99 mmHg mmHg Diastolic Blood Pressure Non-Invasive 67 mmHg mmHg 01/15/2023 8:13 EDT Systolic Blood Pressure Non-Invasive 103 mmHg mmHg Diastolic Blood Pressure Non-Invasive 63 mmHg mmHg 01/15/2023 8:10 EDT Heart Rate Monitored 57 bpm bpm Respiratory Rate - Anes 14 br/min br/min Systolic Blood Pressure Non-Invasive 106 mmHg mmHg Diastolic Blood Pressure Non-Invasive 71 mmHg mmHg 01/15/2023 8:05 EDT Heart Rate Monitored 62 bpm bpm Respiratory Rate - Anes 15 br/min br/min Systolic Blood Pressure Non-Invasive 95 mmHg mmHg Diastolic Blood Pressure Non-Invasive 60 mmHg mmHg 01/15/2023 8:00 EDT Temperature (Route Not Specified) 36 DegC DegC Heart Rate Monitored 63 bpm bpm Respiratory Rate - Anes 14 br/min br/min Systolic Blood Pressure Non-Invasive 89 mmHg mmHg Diastolic Blood Pressure Non-Invasive 63 mmHg mmHg 01/15/2023 7:55 EDT Heart Rate Monitored 63 bpm bpm Respiratory Rate - Anes 15 br/min br/min Systolic Blood Pressure Non-Invasive 96 mmHg mmHg Diastolic Blood Pressure Non-Invasive 63 mmHg mmHg 01/15/2023 7:50 EDT Heart Rate Monitored 63 bpm bpm Respiratory Rate - Anes 15 br/min br/min Systolic Blood Pressure Non-Invasive 90 mmHg mmHg Diastolic Blood Pressure Non-Invasive 61 mmHg mmHg 01/15/2023 7:45 EDT Temperature (Route Not Specified) 36 DegC DegC Heart Rate Monitored 63 bpm bpm Respiratory Rate - Anes 15 br/min br/min Systolic Blood Pressure Non-Invasive 92 mmHg mmHg Diastolic Blood Pressure Non-Invasive 62 mmHg mmHg 01/15/2023 7:40 EDT Heart Rate Monitored 64 bpm bpm Respiratory Rate - Anes 15 br/min br/min Systolic Blood Pressure Non-Invasive 94 mmHg mmHg Diastolic Blood Pressure Non-Invasive 64 mmHg mmHg 01/15/2023 7:35 EDT Heart Rate Monitored 66 bpm bpm Respiratory Rate - Anes 0 br/min br/min Systolic Blood Pressure Non-Invasive 99 mmHg mmHg Diastolic Blood Pressure Non-Invasive 66 mmHg mmHg 01/15/2023 7:30 EDT Temperature (Route Not Specified) 36 DegC DegC Heart Rate Monitored 71 bpm bpm Respiratory Rate - Anes 22 br/min br/min Systolic Blood Pressure Non-Invasive 102 mmHg mmHg Diastolic Blood Pressure Non-Invasive 70 mmHg mmHg 01/15/2023 7:25 EDT Heart Rate Monitored 78 bpm bpm Respiratory Rate - Anes 0 br/min br/min Systolic Blood Pressure Non-Invasive 124 mmHg mmHg Diastolic Blood Pressure Non-Invasive 79 mmHg mmHg 01/15/2023 7:20 EDT Respiratory Rate - Anes 0 br/min br/min 01/15/2023 7:15 EDT Respiratory Rate - Anes 0 br/min br/min 01/15/2023 5:40 EDT Temperature Temporal Artery 36.7 DegC Apical Heart Rate 70 bpm Respiratory Rate 14 br/min Systolic Blood Pressure Non-Invasive 112 mmHg Diastolic Blood Pressure Non-Invasive 74 mmHg , Measurements from flowsheet . Mental status: alert & oriented x 4. Respiratory function: respirations are non-labored. Respiratory support: none. CV function: Normal rate. Cardiovascular support: none. Pain. Nausea status: see nursing documentation of medications. Postoperative hydration status: within normal limits. Digitally Signed by JERSEY MURPHY on 01/15/2023 08:55 AM [facility] 01-15-2023 Anesthesiology Consult note Patient: ILDEFONSO ROCHA Age: 62 years Sex: Male : 1960 Associated Diagnoses: None Author: JERSEY MURPHY Preoperative Information Time of last food or liquid consumption: 01/15/2023 00:00:00 Anesthesia history Patient's history: negative. Family's history: negative. Health Status Allergies: Allergic Reactions (Selected) NKA, Allergies (1) ActiveReaction NKANone Documented Current medications: (Selected) Inpatient Medications Ordered Decadron: 10 mg, 1 mL, IV Push, AsDirected Kefzol: 3 gram(s), 200 mL/hr, IV Piggyback, PREOP pharm LR 1,000 mL: 20 mL/hr, Intravenous, Stop: 01/15/23 23:59:00 EDT Documented Medications Documented Albuterol (Eqv-ProAir HFA) 90 mcg/inh inhalation aerosol: 2 puff(s), Inhalation, q4h, per patient takes daily every 4 to 6 days, PRN: Shortness of breath or wheezing, 0 Refill(s) Eliquis 5 mg oral tablet: 5 mg, 1 tab(s), Oral, BID, 0 Refill(s) Multivitamin: 1 tab(s), Oral, Daily, 0 Refill(s) Vitamin D3 25 mcg (1000 intl units) oral tablet: 50 mcg, 2 tab(s), Oral, Daily hydroCHLOROthiazide 50 mg oral tablet: 50 mg, 1 tab(s), Oral, qDay, 30 tab(s), 0 Refill(s) sertraline 100 mg oral tablet: 100 mg, 1 tab(s), Oral, Daily, 0 Refill(s), Medications (3) Active Scheduled: (2) ceFAZolin 3 gram(s), IV Piggyback, PREOP pharm dexamethasone 10 mg/mL (1mL) SDV 10 mg 1 mL, IV Push, AsDirected Continuous: (1) Lactated Ringers 1,000 mL 1,000 mL, Intravenous, 20 mL/hr PRN: (0) Problem list: Medical Abscess of left leg / SNOMED CT 871311807 / Confirmed Cellulitis of leg / SNOMED CT 4201734090 / Confirmed COPD (chronic obstructive pulmonary disease) / SNOMED CT 55189091 / Confirmed Cancer of skin of face / SNOMED CT 3971936778 / Confirmed Obesity / SNOMED CT 5868150633 / Confirmed Osteoarthritis of left knee / SNOMED CT 4511391081 / Confirmed, Active Problems (9) Abscess of left leg Cancer of skin of face Cellulitis of leg COPD (chronic obstructive pulmonary disease) DVT (deep venous thrombosis) HTN (hypertension) Obesity Osteoarthritis of left knee Tobacco use Histories Past Medical History: Active COPD (chronic obstructive pulmonary disease) (62462290) Obesity (2599082688) Cancer of skin of face (2435272865) Family History: Heart disease Grandparent Stroke Grandparent Cancer Mother Procedure history: Arthroplasty of knee (12522995) on 07/10/2022 at 62 Years. Comments: 07/10/2022 8:57 Gena Ramos RN ROBOTIC ASSISTED LEFT KNEE ATHROPLASTY Abscess ([id number]) on 07/17/2021 at 61 Years. Comments: 07/21/2021 13:37 Meeta Miller LPN I&D SCROTAL ABSCESS (OFFICE) Excision of melanoma ([id number]). History of hernia repair (2604239944). 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 Physical Examination Vital Signs 01/15/2023 7:35 EDT Heart Rate Monitored 66 bpm bpm Respiratory Rate - Anes 0 br/min br/min Systolic Blood Pressure Non-Invasive 99 mmHg mmHg Diastolic Blood Pressure Non-Invasive 66 mmHg mmHg 01/15/2023 7:30 EDT Heart Rate Monitored 71 bpm bpm Respiratory Rate - Anes 22 br/min br/min Systolic Blood Pressure Non-Invasive 102 mmHg mmHg Diastolic Blood Pressure Non-Invasive 70 mmHg mmHg 01/15/2023 7:25 EDT Heart Rate Monitored 78 bpm bpm Respiratory Rate - Anes 0 br/min br/min Systolic Blood Pressure Non-Invasive 124 mmHg mmHg Diastolic Blood Pressure Non-Invasive 79 mmHg mmHg 01/15/2023 7:20 EDT Respiratory Rate - Anes 0 br/min br/min 01/15/2023 7:15 EDT Respiratory Rate - Anes 0 br/min br/min 01/15/2023 5:40 EDT Temperature Temporal Artery 36.7 DegC Apical Heart Rate 70 bpm Respiratory Rate 14 br/min Systolic Blood Pressure Non-Invasive 112 mmHg Diastolic Blood Pressure Non-Invasive 74 mmHg Vital Signs(last 24 hrs) Last Charted Heart Rate [id number] bpm (JAN 15 07:35) Resp Rate 14 br/min (JAN 15 05:40) SBP99 mmHg (JAN 15 07:35) DBP66 mmHg (JAN 15 07:35) Measurements from flowsheet : Measurements 01/15/2023 5:40 EDT Height 172.7 cm Height in inches 68 inch(es) Admission Weight 119 kg Weight Lbs 261.8 lb [place] Body Weight 68.38 kg Admission Body Mass Index 39.9 m2 Pain assessment: Pain Assessment 01/15/2023 7:41 EDT Primary Pain Intensity Not Done: See OR Record (Not Done) Primary Pain Intensity Not Done: See OR Record (Not Done) 01/15/2023 6:53 EDT Primary Pain Intensity 2 01/15/2023 5:40 EDT Primary Pain Location Knee Primary Pain Laterality Right Primary Pain Intensity 2 Primary Pain Quality Aching, Dull Primary Pain Nonverbal Response Appears restful Pain Scale Type 0-10 Pain scale . General: Alert and oriented. Airway: Normal temporomandibular joint mobility, Normal mouth, Normal neck range of motion. Mallampati classification: II (soft palate, fauces, uvula visible). Dentition Evaluation: Dentures, lower, Dentures, upper. Respiratory: Respirations are non-labored. Cardiovascular: Normal rate. Neurologic: Alert, Oriented. Review / Management Results review: Labs (Last four charted values) Na 143(JAN 15) K 4.1(JAN 15) CO2 25(JAN 15) Cl 106(JAN 15) Cr 0.99(JAN 15) BUN H 19(JAN 15) Glucose 102(JAN 15) Ca 9.0(SEP 05) , Lab results 01/15/2023 7:42 EDT povidone iodine topical Not Done: See OR Record (Not Done) tranexamic acid Not Done: See OR Record (Not Done) 01/15/2023 7:41 EDT SN - SP - Prep Agents Chloraprep SN - SP - HR - Method Clipped 01/15/2023 7:41 EDT Primary Pain Intensity Not Done: See OR Record (Not Done) Primary Pain Intensity Not Done: See OR Record (Not Done) epinephrine Not Done: See OR Record (Not Done) epinephrine Not Done: See OR Record (Not Done) ketorolac Not Done: See OR Record (Not Done) ketorolac Not Done: See OR Record (Not Done) morphine Not Done: See OR Record (Not Done) morphine Not Done: See OR Record (Not Done) ROPivacaine Not Done: See OR Record (Not Done) ROPivacaine Not Done: See OR Record (Not Done) 01/15/2023 7:40 EDT SN - PP - Body Position Supine Standard Intra-op 01/15/2023 7:40 EDT SN - CTm - Surgery Start 01/15/2023 7:40 01/15/2023 7:35 EDT Heart Rate Monitored 66 bpm bpm Respiratory Rate - Anes 0 br/min br/min Systolic Blood Pressure Non-Invasive 99 mmHg mmHg Diastolic Blood Pressure Non-Invasive 66 mmHg mmHg Oxygen Saturation 97 % % 01/15/2023 7:30 EDT Heart Rate Monitored 71 bpm bpm Respiratory Rate - Anes 22 br/min br/min Systolic Blood Pressure Non-Invasive 102 mmHg mmHg Diastolic Blood Pressure Non-Invasive 70 mmHg mmHg Oxygen Saturation 97 % % 01/15/2023 7:25 EDT Heart Rate Monitored 78 bpm bpm Respiratory Rate - Anes 0 br/min br/min Systolic Blood Pressure Non-Invasive 124 mmHg mmHg Diastolic Blood Pressure Non-Invasive 79 mmHg mmHg Oxygen Saturation 95 % % 01/15/2023 7:20 EDT Respiratory Rate - Anes 0 br/min br/min 01/15/2023 7:19 EDT SN - Proc - Anesthesia Type Local, Regional, Spinal 01/15/2023 7:15 EDT Respiratory Rate - Anes 0 br/min br/min 01/15/2023 7:14 EDT SN - PTCare - Anti-thromboembolism Casandra Sequential Compression Device (SCD) 01/15/2023 7:02 EDT SN - IL - Route of Administration Local SN - IL - Route of Administration Local SN - IL - Route of Administration Local SN - IL - By (Single) SN - IL - By (Single) SN - IL - By (Single) SN - IL - By (Single) SN - IL - By (Single) SN - IL - By (Single) 01/15/2023 6:55 EDT SN - CAt - Case Attendee SN - CAt - Case Attendee SN - CAt - Role Performed C++ Professor 01/15/2023 6:53 EDT SN - Irl - Irrigant Normal Saline SN - Irl - Irrigant Normal Saline SN - Irl - Irrigant Sterile Water SN - IrI - Volume In 500 mL SN - IrI - Volume In 450 mL SN - Irl - Additive BETADINE (POVIDONE IODINE) SOLUT SN - Irl - Additive IRRIGATION CHG 0.05% IRRISEPT 12/CA [id number] SN - IrI - Volume Out 500 mL SN - IrI - Volume Out 450 mL 01/15/2023 6:53 EDT Primary Pain Intensity 2 celecoxib 400 mg mg oxyCODONE 10 mg mg 01/15/2023 6:52 EDT SN - Proc - Actual Procedure ROBOTIC ASSISTED RIGHT TOTAL KNEE ARTHROPLASTY 01/15/2023 6:52 EDT citric acid-sodium citrate Not Done: Not Appropriate at this Time (Not Done) 01/15/2023 6:51 EDT SN - Assess - LOC Alert, Awake SN - Assess - Orientation Oriented X 3 SN - Assess - Post-op Skin Integrity Other See Comments SN - Assess - Abnormality Location UPPER BACK SN - Assess - Abnormality Type CLOSED CYST 01/15/2023 6:50 EDT SN - GCD - ASA Class 3 SN - GCD - Post-operative Diagnosis UNILATERAL PRIMARY OSTEOARTHRITIS RIGHT KNEE SN - GCD - Case Level Level 5 01/15/2023 6:50 EDT SN - Cul - Culture Type No Specimen per Surgeon 01/15/2023 6:50 EDT SN - CAt - Case Attendee SN - CAt - Case Attendee SN - CAt - Case Attendee SN - CAt - Case Attendee SN - CAt - Case Attendee SN - CAt - Case Attendee SN - CAt - Case Attendee SN - CAt - Case Attendee SN - CAt - Case Attendee SN - CAt - Case Attendee SN - CAt - Case Attendee SN - CAt - Case Attendee SN - CAt - Role Performed Primary Surgeon SN - CAt - Role Performed Physician [place] Decorator SN - CAt - Role Performed HISTORIC SITES REGISTRAR SN - CAt - Role Performed Corsetier 1 SN - CAt - Role Performed Scrub 1 SN - CAt - Role Performed Construction Grip 1 01/15/2023 6:42 EDT SN - Preop - CTm Pt in SDS Room 01/15/2023 5:40 SN - Preop - CTm Pt Ready for OR/Proced 01/15/2023 6:42 01/15/2023 6:36 EDT famotidine 20 mg mg Lactated Ringers Injection 1,000 mL mL 01/15/2023 6:05 EDT Glucose Level 102 mg/dL Sodium Level 143 mmol/L Potassium Level 4.1 mmol/L Chloride 106 mmol/L CO2 25 mmol/L Electrolyte Balance 12.0 mEq/L BUN 19 mg/dL HI Creatinine Lvl (s) 0.99 mg/dL BUN/Creatinine Ratio 19 ratio Calcium Lvl 9.0 mg/dL GFR Non- 77 ml/min/1.73sqm NA GFR 93 ml/min/1.73sqm NA ABO/Rh Interp B POS Antibody Screen Gel Negative ABSC 01/15/2023 5:50 EDT Designated Person #1 We May Share JEY ROCHA [phone] Designated Person #1 Relationship Spouse Designated Person #2 We May Share JEY Roy Designated Person #2 Relationship Daughter Privacy Restrictions Requested None Status N/A Sensory Deficits None Diagnosed With Sleep Apnea Yes Advanced Directives No - refuses information Infectious Disease Symptoms Patient states no symptoms Infectious Disease Recent Exposure No Alcohol and Drug Use No Employee of Institutional Living No Health Care Employee No History of Exposure to TB No History of Positive Chest X-Ray for TB No History of Positive TB Skin Test No Homeless No Known Immunosuppression No Recent Immigrant No Resident of Institutional Living No Bloody Sputum No Fatigue No Fever No Loss of Appetite No Night Sweats No Persistent Cough > 3 Weeks No Weight Loss No Pre-Op Patient Education NPO after midnight, No smoking after midnight, No makeup, No jewelry, Aware of surgery location, Pre-op education done, 1 bottle CHG wash with instructions given, No ordered medications, Total Joint Replacement/Colorectal Book Given, Anesthesia block education provided SN - Preprocedure Comments Spoke with patient, Verbalizes/Nonverbally indicates understanding, Other: BRING BIPAP, ALB INH Barriers to Learning None evident Teaching Method Explanation, Printed materials Preferred Spoken Language Ivorian Preferred Written Language Ivorian Teaching Evaluation Verbalizes/Nonverbally indicates understanding Total Joint Book Given Yes Safety Brochure Information Reviewed Yes Yadiel Capps Video Viewed No Information Given by Patient Patient's Current Physicians Patient's Current Physicians Discharge To, Anticipated Home with family care Prev Test Positive/Diagnosis w/COVID-19 No Current Quarantine/Isolated any Illness No Any Contact with Sick Animals/Birds No Traveled Anywhere in Last 30 Days No Lost Weight Unintentionally Recently No Eat Poorly Due to Decreased Appetite No Total MST Score 0 N/A Personal Devices, Patient Valuables Dentures, upper Anesthesia/Transfusions Prior anesthesia Admission Note-Nursing Same Day Patient History 01/15/2023 5:40 EDT Height 172.7 cm Height in inches 68 inch(es) Admission Weight 119 kg Weight Lbs 261.8 lb [place] Body Weight 68.38 kg Admission Body Mass Index 39.9 m2 Temperature Temporal Artery 36.7 DegC Apical Heart Rate 70 bpm Respiratory Rate 14 br/min Systolic Blood Pressure Non-Invasive 112 mmHg Diastolic Blood Pressure Non-Invasive 74 mmHg Primary Pain Location Knee Primary Pain Laterality Right Primary Pain Intensity 2 Primary Pain Quality Aching, Dull Primary Pain Nonverbal Response Appears restful Pain Scale Type 0-10 Pain scale Monitor Alarms On and Limits Checked Heart Sounds ICU S1S2 Heart Rhythm Regular Dorsalis Pedis Pulse, Left 2+ Normal Dorsalis Pedis Pulse, Right 2+ Normal Respirations Unlabored Respiratory Pattern Regular All Lobes Breath Sounds Clear, Diminished Cough None Oxygen Therapy Room air Oxygen Saturation 97 % Abdomen Description Soft, Rounded Bowel Sounds All Quadrants Present Urinary Elimination Voiding, no difficulties Skin Symptoms Ulcers/Lesions Skin Temperature Warm Skin Description Olean, Dry Skin Integrity Not intact Skin Moisture General Dry IV Present Present Neurological Symptoms Patient denies Extremity Movement Equal Characteristics of Speech Clear Level of Consciousness Alert Strength All Extremities Strong Tone All Extremities Normal Sensation All Extremities Intact Affect/Behavior Appropriate, Calm, Cooperative Orientation Oriented x 4 Allergies No Anesthesia Extension Set Applied Yes Launch Operator On Yes Consent Form Signed Yes Patient Dressed In Hospital gown, No undergarments Pre-op Preparation Shave prep done by clippers, Undergarments removed CHG Preoperative Wash/Wipe Night before procedure, Day of procedure, Site specific wipe Preop Nasal Swab Povidone-Iodine CHG Skin Prep Completed for Eligible Surgery History & Physical On Chart Yes Ana Laura Motor (2) Moves 4 extremities voluntarily or on command Ana Laura Respirations (2) Spontaneous respiration without support, RR > 10 Ana Laura Blood Pressure (2) BP 20% above or below preanesthetic level Ana Laura Pulse (2) Pulse 20% above or below preanesthetic level Ana Laura Oxygen Saturation (2) 94% or more Ana Laura Level of Consciousness (2) Fully awake Ana Laura III Score 12 Belongings At Bedside Cane, Dentures, upper, Pants, Shirt, Shoes, Socks, Undergarments, Walker Personal Home Medications Received No home medications were brought in Assistive Device Cane Positioning Repositions self Mobility Assistance Level Independent Activity Status ADL Awake, Resting Sequential Compression Device left knee high applied/on Antiembolism Stocking On/Re-applied left thigh high NPO Status Maintained, More than 8 hours Standard Safety ID band on, Call device within reach, Bed in low position, Wheels locked, Upper/Half-Length side-rails up, Visitor at bedside, Non-Slip footwear Demonstrates Correct Call Light Use Yes Allergy Band on and Verified No Patient ID Band on and Verified Yes Implants Verified Yes Pacemaker/AICD Verified Yes Site Verified by Patient/Family Yes Blood Consent Signed Yes Last Fluid Intake 01/14/2023 20:00 Last Food Intake 01/14/2023 20:00 . Assessment and Plan [place] [employer] (ASA) physical status classification: Class III. Anesthetic Preoperative Plan Anesthetic technique: Spinal. Postoperative pain management: adductor. Informed consent: signed by patient. Digitally Signed by JERSEY MURPHY on 01/15/2023 07:48 AM [facility] 01-07-2023 Note ORIGINAL EXAMINATION: CT OF THE RIGHT KNEE WITHOUT CONTRAST 01/07/2023 3:26 pm TECHNIQUE: CT of the right knee was performed without the administration of intravenous contrast. Multiplanar reformatted images are provided for review. Automated exposure control, iterative reconstruction, and/or weight based adjustment of the mA/kV was utilized to reduce the radiation dose to as low as reasonably achievable. COMPARISON: None. HISTORY ORDERING SYSTEM PROVIDED HISTORY: Reason for Exam: Varus deformity right knee pain. FINDINGS: No acute fracture or dislocation. Normal osseous mineralization. No visible aggressive osseous lesions. There is severe medial femorotibial compartment joint space narrowing with subchondral sclerosis, marginal osteophytes, and tiny subchondral cysts. There is mild to moderate lateral femorotibial compartment joint space narrowing with small marginal osteophytes. There is moderate patellofemoral compartment joint space narrowing with marginal osteophytes and tiny subchondral cysts. No significant joint effusion. An intracapsular body posterior to the intercondylar notch measures up to 0.4 cm. No significant volume of fluid is evident of a popliteal cyst. Tendons and ligaments are suboptimally evaluated on this examination. No severe muscle atrophy. Mild gluteus minimus atrophy. Provided images of the hip and hemipelvis exhibit no acute osseous abnormalities or aggressive osseous lesions. Mild degenerative changes of the hip. The included intrapelvic contents exhibit no acute abnormalities. Provided images of the ankle exhibit no acute osseous abnormalities or aggressive osseous lesions. Mild atherosclerosis. IMPRESSION: 1. No acute osseous abnormalities or aggressive osseous lesions. 2. 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 A 0.4 cm intracapsular body posterior to the intercondylar notch. Interpreted by: Garrick Castillo DO Preliminary Report By: Garrick Castillo DO Electronically signed By Garrick Castillo DO Dictated Date: 01/07/2023 3:37:08 PM Prelim Date: 01/07/2023 3:41:18 PM Sign Date: 01/07/2023 3:41:18 PM Ordering Provider: GRICELDA MELODY [facility] 12-24-2022 Evaluation + Plan note Associated Problem(s): Current moderate episode of major depressive disorder without prior episode (CMS/[facility]) Patient is also here today because of an predosing in his Zoloft. We increased it to 100 mg because his depression was getting worse. Since the increase he has felt much better and back to his old self. He is no longer down in the dumps and is no longer short tempered with his new or family. [facility] Work Phone: 12-24-2022 Evaluation + Plan note Associated Problem(s): Preop examination BC and CHEM profile were both reviewed and look acceptable. Patient should do well through the surgery and he is cleared was given instructions to stop his Coumadin on January 12. [facility] Work Phone: 12-24-2022 Miscellaneous Notes Associated Problem(s): Current moderate episode of major depressive disorder without prior episode (CMS/HCC) Patient is also here today because of an predosing in his Zoloft. We increased it to 100 mg because his depression was getting worse. Since the increase he has felt much better and back to his old self. He is no longer down in the dumps and is no longer short tempered with his new or family. Associated Problem(s): Preop examination BC and CHEM profile were both reviewed and look acceptable. Patient should do well through the surgery and he is cleared was given instructions to stop his Coumadin on January 12. Associated Problem(s): Acute deep vein thrombosis (DVT) of femoral vein of left lower extremity (CMS/HCC) Patient had a DVT last year so he is now on Eliquis. He is to hold Eliquis 3 days before surgery which will be January 12 surgery is planned for January 15. Orthopedic surgeon is aware of this and it has been recommended that he restart the Eliquis as soon as possible after the surgery. Associated Problem(s): Hypertension Blood pressure is stable and well-controlled at this time without any issues documented in this encounter [facility] Work Phone: 12-24-2022 Evaluation + Plan note Associated Problem(s): Acute deep vein thrombosis (DVT) of femoral vein of left lower extremity (CMS/HCC) Patient had a DVT last year so he is now on Eliquis. He is to hold Eliquis 3 days before surgery which will be January 12 surgery is planned for January 15. Orthopedic surgeon is aware of this and it has been recommended that he restart the Eliquis as soon as possible after the surgery. [facility] Work Phone: 12-24-2022 Evaluation + Plan note Associated Problem(s): Hypertension Blood pressure is stable and well-controlled at this time without any issues [facility] Work Phone: 12-24-2022 History of Present illness Narrative Subjective Patient ID: Ildefonso Rocha is a 62 y.o. male who presents for 1 mon follow-up for HTN and depression management. BN Patient is here today for preop clearance for his upcoming knee surgery as well as recheck on his depression and sertraline. Patient notes that he is feeling much better on the 100 mg of Zoloft. He is back to his old self anxious to get the surgery over and get up and moving again. He is no longer feeling apprehensive, lethargic and depressed in his own words. Patient has already been to PAT testing on December 17 I was able to access some of the records and saw his CBC which was unremarkable and his chemistry profile. They are using his old EKG and do not require . His surgery is scheduled for January 15 and they would like to know when he should stop his Eliquis. I have recommended stopping the Eliquis 3 days before which will be January 12. Patient states understanding and will take his last dose the evening of January 11. He is on this for DVT Review of Systems Constitutional: Negative for chills, fatigue and fever. HENT: Negative for sore throat. Eyes: Negative for visual disturbance. Respiratory: Negative for cough and shortness of breath. Cardiovascular: Negative for chest pain, palpitations and leg swelling. Gastrointestinal: Negative for constipation, diarrhea, nausea and vomiting. Genitourinary: Negative for difficulty urinating, dysuria, frequency, hematuria and urgency. Musculoskeletal: Positive for arthralgias, back pain and gait problem. Negative for myalgias. Has arthritis of both knees but has already had the left knee replaced. He is now going to have the right knee replaced on January 15. He patient has chronic low back pain as well where he has degenerative changes. Skin: Negative for rash. Neurological: Negative for dizziness, syncope, weakness, light-headedness and headaches. Objective Medication Documentation Review Audit Reviewed by Opal Medina MD (Physician) on 12/24/22 at 1104 Medication Order Taking? Sig Documenting Provider Last Dose Status acetaminophen (Tylenol) 500 mg tablet [id number] 1 tablet (500 mg). Kristen Silva MD Active albuterol 90 mcg/actuation inhaler [id number] No Inhale 2 puffs every 4 hours if needed for wheezing. Kristen Silva MD Taking Active apixaban (Eliquis) 5 mg tablet [id number] Take 1 tablet (5 mg) by mouth 2 times a day. Opal Medina MD Active cholecalciferol (Vitamin D-3) 50 mcg (2,000 unit) capsule [id number] No Take 1 capsule (50 mcg) by mouth once daily. Kristen Silva MD Not Taking Active glucose 4 gram chewable tablet [id number] Chew if needed for low blood sugar - see comments. Kristen Silva MD Active hydroCHLOROthiazide (HYDRODiuril) 50 mg tablet [id number] Take 1 tablet (50 mg) by mouth once daily. Opal Medina MD Active multivitamin capsule [id number] No once daily. Kristen Silva MD Taking Active sertraline (Zoloft) 100 mg tablet [id number] Take 1 daily Opal Medina MD Active Physical Exam Constitutional: Appearance: Normal appearance. He is obese. HENT: Head: Normocephalic and atraumatic. Nose: Nose normal. Eyes: Extraocular Movements: Extraocular movements intact. Pupils: Pupils are equal, round, and reactive to light. Cardiovascular: Rate and Rhythm: Normal rate and regular rhythm. Pulmonary: Breath sounds: Normal breath sounds. Abdominal: General: Abdomen is flat. Bowel sounds are normal. Palpations: Abdomen is soft. Musculoskeletal: Right lower leg: No edema. Left lower leg: No edema. Neurological: Mental Status: He is alert. BP 101/61 (BP Location: Left arm, Patient Position: Sitting) Pulse 82 Ht 1.74 m (5' 8.5") Wt 122 kg (268 lb 12.8 oz) SpO2 97% BMI 40.28 kg/m Assessment/Plan Problem List Items Addressed This Visit Arthritis of both knees Hypertension Blood pressure is stable and well-controlled at this time without any issues Relevant Medications hydroCHLOROthiazide (HYDRODiuril) 50 mg tablet Chronic obstructive pulmonary disease (CMS/HCC) - Primary Relevant Medications albuterol 90 mcg/actuation inhaler Acute deep vein thrombosis (DVT) of femoral vein of left lower extremity (CMS/HCC) Patient had a DVT last year so he is now on Eliquis. He is to hold Eliquis 3 days before surgery which will be January 12 surgery is planned for January 15. Orthopedic surgeon is aware of this and it has been recommended that he restart the Eliquis as soon as possible after the surgery. Current moderate episode of major depressive disorder without prior episode (CMS/HCC) Patient is also here today because of an predosing in his Zoloft. We increased it to 100 mg because his depression was getting worse. Since the increase he has felt much better and back to his old self. He is no longer down in the dumps and is no longer short tempered with his new or family. Preop examination BC and CHEM profile were both reviewed and look acceptable. Patient should do well through the surgery and he is cleared was given instructions to stop his Coumadin on January 12. Acute deep vein thrombosis (DVT) of left lower extremity (CMS/HCC) Relevant Medications apixaban (Eliquis) 5 mg tablet Other Visit Diagnoses Depression screen Relevant Medications sertraline (Zoloft) 100 mg tablet It has been a pleasure seeing you. documented in this encounter [facility] Work Phone: 12-24-2022 Instructions Opal Medina MD - 12/24/2022 11:00 AM EDT Rec quit smoking. Stop eliquis on 01/12/23 for surgery on 01/15/[address] Medina in 6 to 8 weeks after surgery documented in this encounter [facility] Work Phone: 12-17-2022 Evaluation + Plan note Future Appointments Future Scheduled TestsCT Knee w/o Contrast Right 12/17/22 [facility] 12-17-2022 Evaluation + Plan note Future Scheduled TestsCT Knee w/o Contrast Right 12/17/22 [facility] 10-30-2022 Evaluation + Plan note Associated Problem(s): Acute deep vein thrombosis (DVT) of femoral vein of left lower extremity (CMS/HCC) Of DVT after his first knee surgery to stay on that Eliquis until 3 days before his knee surgery. They will restart the medication as soon as the surgery is done to prevent any recurrent DVTs. [facility] Work Phone: 10-30-2022 Miscellaneous Notes Associated Problem(s): Acute deep vein thrombosis (DVT) of femoral vein of left lower extremity (CMS/HCC) Of DVT after his first knee surgery to stay on that Eliquis until 3 days before his knee surgery. They will restart the medication as soon as the surgery is done to prevent any recurrent DVTs. Associated Problem(s): Current moderate episode of major depressive disorder without prior episode (CMS/HCC) Patient clearly has agitation presentation of depression but is frustrated and depressed. Encouraged him to continue walking with the dog and stay physically active we will start sertraline. He is to take half a tablet which equals 25 mg daily for the first week then increase to the full 50 mg tablet. We will reassess him in 1 month to make sure he is doing well on the medication. The purpose of the medication as well as potential side effects including but not limited to serotonin syndrome, GI upset and headaches were all reviewed with the patient. documented in this encounter [facility] Work Phone: 10-30-2022 Evaluation + Plan note Associated Problem(s): Current moderate episode of major depressive disorder without prior episode (CMS/HCC) Patient clearly has agitation presentation of depression but is frustrated and depressed. Encouraged him to continue walking with the dog and stay physically active we will start sertraline. He is to take half a tablet which equals 25 mg daily for the first week then increase to the full 50 mg tablet. We will reassess him in 1 month to make sure he is doing well on the medication. The purpose of the medication as well as potential side effects including but not limited to serotonin syndrome, GI upset and headaches were all reviewed with the patient. [facility] Work Phone: 10-30-2022 History of Present illness Narrative Subjective Patient ID: Ildefonso Rocha is a 62 y.o. male who presents for follow-up for pre-op for right knee. BN Patient is here today with his to talk about his upcoming surgery and his depression/anxiety. Patient will be having a right total knee replacement on January 15 and wants to know that I would be required to do preop clearance. Since it is too soon to do it today I told him there would be no problem with this and they are ordering most of the testing I would do anyway. He will stay on Eliquis because of his DVT up until 3 days before surgery and then restarted again in the postop time.. Patient notes that since he is not working, they have financial complaints and he is frustrated at his inability to get up and down stairs or do more at home he feels like he is getting boxed in. He is more more agitated angry and like things he is depressed. He admits that he is definitely agitated does not know if this is depression or not but he is clearly frustrated at his lack of movement. 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 He admits he loses his temper quickly and gets frustrated easily and it appears to be getting worse and the is in agreement. Review of Systems Constitutional: Negative for chills, fatigue and fever. HENT: Negative for sore throat. Eyes: Negative for visual disturbance. Respiratory: Negative for cough and shortness of breath. Cardiovascular: Negative for chest pain, palpitations and leg swelling. Gastrointestinal: Negative for constipation, diarrhea, nausea and vomiting. Genitourinary: Negative for difficulty urinating, dysuria, frequency, hematuria and urgency. Musculoskeletal: Negative for arthralgias and myalgias. Skin: Negative for rash. Neurological: Negative for dizziness, syncope, weakness, light-headedness and headaches. Psychiatric/Behavioral: Positive for agitation and behavioral problems. The patient is nervous/anxious. Objective Medication Documentation Review Audit Reviewed by Opal Medina MD (Physician) on 10/30/22 at 1150 Medication Order Taking? Sig Documenting Provider Last Dose Status acetaminophen (Tylenol) 500 mg tablet [id number] Yes 1 tablet (500 mg). Historical ProviderMD Active albuterol 90 mcg/actuation inhaler [id number] Inhale 2 puffs every 4 hours if needed for wheezing. Historical ProviderMD Active apixaban (Eliquis) 5 mg tablet [id number] Take 1 tablet (5 mg) by mouth in the morning and 1 tablet (5 mg) before bedtime. Opal Medina MD Active Discontinued 10/30/22 1147 cholecalciferol (Vitamin D-3) 50 mcg (2,000 unit) capsule [id number] Take 1 capsule (50 mcg) by mouth once daily. Historical ProviderMD Active hydroCHLOROthiazide (HYDRODiuril) 50 mg tablet [id number] once daily. Historical Provider, Active Discontinued 10/30/22 1147 multivitamin capsule [id number] once daily. Historical Provider, Active Discontinued 10/30/22 1147 Discontinued 10/30/22 1148 Discontinued 10/30/22 1148 Physical Exam Constitutional: Appearance: Normal appearance. He is obese. HENT: Head: Normocephalic and atraumatic. Nose: Nose normal. Eyes: Extraocular Movements: Extraocular movements intact. Pupils: Pupils are equal, round, and reactive to light. Cardiovascular: Rate and Rhythm: Normal rate and regular rhythm. Pulmonary: Breath sounds: Normal breath sounds. Abdominal: General: Abdomen is flat. Bowel sounds are normal. Palpations: Abdomen is soft. Musculoskeletal: Right lower leg: No edema. Left lower leg: No edema. Neurological: Mental Status: He is alert. BP 117/66 (BP Location: Left arm, Patient Position: Sitting) Pulse 83 Ht 1.74 m (5' 8.5") Wt 124 kg (272 lb 12.8 oz) SpO2 95% BMI 40.88 kg/m Assessment/Plan Problem List Items Addressed This Visit Arthritis of both knees Acute deep vein thrombosis (DVT) of femoral vein of left lower extremity (CMS/HCC) Of DVT after his first knee surgery to stay on that Eliquis until 3 days before his knee surgery. They will restart the medication as soon as the surgery is done to prevent any recurrent DVTs. Current moderate episode of major depressive disorder without prior episode (CMS/HCC) Patient clearly has agitation presentation of depression but is frustrated and depressed. Encouraged him to continue walking with the dog and stay physically active we will start sertraline. He is to take half a tablet which equals 25 mg daily for the first week then increase to the full 50 mg tablet. We will reassess him in 1 month to make sure he is doing well on the medication. The purpose of the medication as well as potential side effects including but not limited to serotonin syndrome, GI upset and headaches were all reviewed with the patient. Other Visit Diagnoses Depression screen - Primary Relevant Medications sertraline (Zoloft) 50 mg tablet It has been a pleasure seeing you. documented in this encounter [facility] Work Phone: 10-30-2022 Instructions Opal Medina MD - 10/30/2022 11:30 AM EDT Follow up Dr Medina in 1 month for depression 30 min appointment documented in this encounter [facility] Work Phone: 07-31-2022 Evaluation + Plan note Associated Problem(s): Acute deep vein thrombosis (DVT) of femoral vein of left lower extremity (CMS/HCC) Provoked acute left-sided DVT from knee surgery. Patient will be switched from Xarelto to Eliquis 5 mg twice daily for the next 6 months. After 6 months he can stop the medication and have his right total knee replaced. I recommended he not work until his right knee has been replaced. Patient may return to physical therapy at this time. [facility] Work Phone: 07-31-2022 Miscellaneous Notes Associated Problem(s): Acute deep vein thrombosis (DVT) of femoral vein of left lower extremity (CMS/HCC) Provoked acute left-sided DVT from knee surgery. Patient will be switched from Xarelto to Eliquis 5 mg twice daily for the next 6 months. After 6 months he can stop the medication and have his right total knee replaced. I recommended he not work until his right knee has been replaced. Patient may return to physical therapy at this time. Associated Problem(s): Arthritis of both knees She had has already had left total knee replacement and needs the right one done but he will have to wait 6 months to get off the blood thinners as this is an elective surgery. In the meantime he should stay off work until his right knee has been totally replaced. Associated Problem(s): Hypertension Mild elevation in blood pressure today at 132/66 but for now we will monitor. documented in this encounter [facility] Work Phone: 07-31-2022 Evaluation + Plan note Associated Problem(s): Arthritis of both knees She had has already had left total knee replacement and needs the right one done but he will have to wait 6 months to get off the blood thinners as this is an elective surgery. In the meantime he should stay off work until his right knee has been totally replaced. [facility] Work Phone: 07-31-2022 Evaluation + Plan note Associated Problem(s): Hypertension Mild elevation in blood pressure today at 132/66 but for now we will monitor. [facility] Work Phone: 07-31-2022 History of Present illness Narrative Subjective Patient ID: Ildefonso Rocha is a 62 y.o. male who presents for DVT post op and right knee pain. BN Patient is here today for evaluation of a DVT. On July 10 patient had a left total knee replacement. While in the follow-up patient's left leg started swelling ultrasound was performed and showed a clot in the left gastrocnemius vein. He was started on Xarelto by his surgeon and is here for follow-up. Patient is unable to afford the Xarelto we do not have any savings cards but we do for Eliquis so he will have to be switched for cost savings. He was originally supposed to have right total knee replaced sometime in August however because of the clot I recommended postponing it for at least 6 months while he undergoes treatment with blood thinners. Patient is very anxious about this but I told him it really was not safe to do an elective surgery with no DVT on blood thinners. Review of Systems Constitutional: Negative for chills, fatigue and fever. HENT: Negative for sore throat. Eyes: Negative for visual disturbance. Respiratory: Negative for cough and shortness of breath. Cardiovascular: Negative for chest pain, palpitations and leg swelling. Gastrointestinal: Negative for constipation, diarrhea, nausea and vomiting. Genitourinary: Negative for difficulty urinating, dysuria, frequency, hematuria and urgency. Musculoskeletal: Negative for arthralgias and myalgias. Patient notes left knee feels great after the surgery but his right knee is still giving him a lot of pain and occasionally collapsing in on him. Skin: Negative for rash. Neurological: Negative for dizziness, syncope, weakness, light-headedness and headaches. Objective Physical Exam Constitutional: Appearance: Normal appearance. HENT: Head: Normocephalic and atraumatic. Nose: Nose normal. Eyes: Extraocular Movements: Extraocular movements intact. Pupils: Pupils are equal, round, and reactive to light. Cardiovascular: Rate and Rhythm: Normal rate and regular rhythm. Pulmonary: Breath sounds: Normal breath sounds. Abdominal: General: Abdomen is flat. Bowel sounds are normal. Palpations: Abdomen is soft. Musculoskeletal: Right lower leg: No edema. Left lower leg: No edema. Comments: Left knee incision is still minimally warm but no erythema no effusions and scar is well-healed with no drainage or evidence of infection. Neurological: Mental Status: He is alert. BP 132/66 Pulse 84 Ht 1.778 m (5' 10") Wt 129 kg (283 lb 9.6 oz) SpO2 97% BMI 40.69 kg/m Assessment/Plan Problem List Items Addressed This Visit Circulatory Hypertension Mild elevation in blood pressure today at 132/66 but for now we will monitor. Acute deep vein thrombosis (DVT) of femoral vein of left lower extremity (CMS/HCC) Provoked acute left-sided DVT from knee surgery. Patient will be switched from Xarelto to Eliquis 5 mg twice daily for the next 6 months. After 6 months he can stop the medication and have his right total knee replaced. I recommended he not work until his right knee has been replaced. Patient may return to physical therapy at this time. Musculoskeletal Arthritis of both knees She had has already had left total knee replacement and needs the right one done but he will have to wait 6 months to get off the blood thinners as this is an elective surgery. In the meantime he should stay off work until his right knee has been totally replaced. Relevant Orders Disability Placard Other Visit Diagnoses Acute deep vein thrombosis (DVT) of other specified vein of left lower extremity (CMS/HCC) - Primary Relevant Medications apixaban (Eliquis) 5 mg tablet Other Relevant Orders Disability Placard It has been a pleasure seeing you. documented in this encounter [facility] Work Phone: 07-31-2022 Instructions Opal Medina MD - 07/31/2022 10:45 AM EDT Stop Xarelto and start Eliquis 5mg twice a day Follow up Dr Medina in 3 months You are cleared for physical therapy with no limits from Dr Medina documented in this encounter [facility] Work Phone: 07-11-2022 Note Discharge Instructions Thank you for allowing [facility] to assist you with your healthcare needs. The following is important discharge information regarding your hospital visit. Your Care Team Dr. Oliver Your Diagnosis Osteoarthritis of left knee COPD (chronic obstructive pulmonary disease) HTN (hypertension) Obesity Tobacco use Status post total left knee replacement What to do next Scheduled Follow-Up Appointments Appointment Type When Where Contact InformationSurgical Pre-Test 08/24/2022 08:00 AM EDT [facility] PAT CT Knee w/o Contrast Right 08/24/2022 09:30 AM EDT [facility] 09/04/2022 07:30 AM EDT [facility] Main OR Follow Up Appointments Follow Up with FELIPE LAU When 07/23/2022 02:45 PM EDT Where: [facility] [address] [place] [address]- Business (1) Follow Up with [facility] Andrea [facility] on site When 07/16/2022 11:00 AM EST Why: Physical Therapy Initial Eval on July 16, 2022 at 11am. Where: The Following Activity and Diet Have Been Ordered for You Activity: Weight bearing as tolerated. Diet: No changes were made to your diet. The Following Treatments Have Been Ordered for You Discharge Labs No qualifying data available. Discharge Radiology No qualifying data available. Other Therapies No qualifying data available. Post Acute Orders No qualifying data available. Allergies NK[facility] Medications Please ask your primary doctor or pharmacist before taking any other medication not listed, including over the counter drugs, herbal medications, vitamins and or supplements as they may interact with your home medications. What How Much When Why Instructions Last Dose New acetaminophen (acetaminophen 500 mg oral tablet) 2 tab(s) by mouth Three (3) times a day as needed for as needed for pain not to exceed 3000 mg/ day Pickup at [facility] #[id number] 07/11/22 at 0813am New docusate-senna (Senokot S 50 mg-8.6 mg oral tablet) 2 tab(s) by mouth Two (2) times a day Duration: 3 Days Take until first bowel movement, then as needed Pickup at [facility] [employer] #[id number] 07/11/22 at 0813am New doxycycline (doxycycline hyclate 100 mg oral capsule) 1 cap by mouth Every 12 hours Duration: 14 Days Pickup at [facility] [employer] #[id number] 07/11/22 at 0813am New famotidine (Pepcid 20 mg oral tablet) 1 tab(s) by mouth Once a day Pickup at [facility] [employer] #[id number] 07/11/22 t 0813am New meloxicam (Mobic 7.5 mg oral tablet) 1 tab(s) by mouth Twice daily with meals Do not take any other nonsteroidal anti-inflammatories while on meloxicam/ Mobic Pickup at [facility] [employer] #[id number] start tomorrow New oxyCODONE (oxyCODONE 5 mg oral tablet ( IMMEDIATE release )) See instructions Status post total left knee replacement 1-2 tab(s) Oral q4h Pickup at [facility] #[id number] 07/11/22 at 1117am Changed aspirin (aspirin 81 mg oral delayed release tablet) 1 tab(s) by mouth Two (2) times a day Duration: 30 Days Take 81 mg aspirin twice daily with food for 4 weeks postoperatively for DVT prophylaxis. Pickup at [facility] #[id number] 3/1/23 at 0813am Unchanged albuterol (Albuterol (Eqv-ProAir HFA) 90 mcg/ inh inhalation aerosol) 2 puff(s) by inhalation Every 4 hours as needed for Shortness of breath or wheezing per patient takes daily every 4 to 6 days none Unchanged cholecalciferol (Vitamin D3 25 mcg (1000 intl units) oral tablet) 2 tab(s) by mouth Every day none Unchanged hydroCHLOROthiazide (hydroCHLOROthiazide 50 mg oral tablet) 1 tab(s) by mouth Once a day none Unchanged multivitamin (Multivitamin) 1 tab(s) by mouth Every day 07/11/22 at 1117am Pharmacy Information [facility] #[id number]: [address], [place] [id number] [phone] Please take this list to your next doctor s visit. Bring all medications you take, including over the counter medications, herbals and other supplements with you to your doctor s visit. Patients and families are reminded to discard old lists and to update any records with all medication providers or retail pharmacies. Education Materials [facility] Post-operative Instructions PLEASE FOLLOW [facility] POST-OP INSTRUCTIONS GIVEN WATCH FOR SIGNS OF INFECTION: call the office ([phone]) if experencing any of the following: (Usually appears 36-48 hours after surgery) Increased temperature (101 degrees Fahrenheit or higher) Redness or swelling Increased uncontrolled pain Foul odor or drainage Calf discomfort Significant swelling Or if having any chest pain, shortness of breath, or difficulty breathing or swallowing call the office or go the nearest Emergency Room. If you have any questions, please call your doctor at the number listed on your follow up instructions. Form: 338A ([id number]) R: 09/16 Additional Information VACCINATE! IT SAVES LIVES! Members of the community who have not yet received the COVID-19 vaccine and would like to receive it can visit one of [facility] vaccine clinics. There are many vaccine clinic locations within the [facility]. For locations and available times, please visit [email or web address].[place].gov/. It is important to note that some COVID mobile vaccine clinics are held outdoors and may be canceled in rainy or stormy conditions. To learn more about pediatric vaccinations (ages 5-11), we invite you to visit the [facility] webpage. [email or web address] To learn more about the COVID-19 vaccine, we invite you to visit the CDC website for a list of frequently asked questions. https://www.cdc.gov/coronavirus/2 019-ncov/vaccines/faq.html [facility] Patient Portal Access Instructions: Stay connected with your healthcare team and access your personal medical information anytime with the [facility] Patient Portal.If you would like a full copy of your medical records, please contact the [facility] Medical Records Department, Saturday through Saturday between 8a.m. and 4:30p.m. Please follow the directions below to access the portal: 1.Access the email account you provided upon registration to the hospital.2.Look for an invitation email from [facility].3.Open the email and access the invitation link: Accept Invitation to [facility]4.Fill in the required benson to create your account. Sign into [email or web address] with your username and password that you created in the above steps to stay up to date. You can then view a summary of results, a summary of your visits, and the ability to download your summaries to your computer or send the information securely to a physician. Remember that your healthcare information is confidential, so carefully consider who you will allow to register on the [facility] Patient Portal for access to your information. You can also access the [employer] Patient Portal on the [employer] jacklyn. Simply click on "Health Records" under "Health Data" and then click on the [employer] logo. HOW TO SAFELY DISPOSE OF PRESCRIPTION MEDICATIONS Please use one of the following methods to safely dispose of your unused medications. 1.Use a drug disposal kit: the drug disposal pouch allows you to safely discard your old and unused drugs. Ask your nurse to give you one when you are discharged.2.Visit a local take-back location: Many local pharmacies and police departments have programs that collect old and unwanted prescription drugs. Call your local pharmacy or go to http://VOSS.PeopleCube/6V4Mr2c to find one close to you.3.Make use of household items: Use cat litter or old coffee grounds to dispose medications if other options are not available. Mix your drugs with these household products, seal them in an airtight container and throw it into the garbage. Call [facility]: [phone] to be sure your drugs can be disposed of in this way. Some medicines may require a different approach.4.Never flush your medications down the toilet. IF YOU HAVE BEEN PRESCRIBED AN OPIOID FOR PAIN If you have been prescribed an opioid (such as hydrocodone, oxycodone or morphine), it is critical to understand the possible side effects and risks of opioid pain medications. Even when taken as directed, opioids can have several side effects including: Tolerance, meaning you might need to take more of a medication for the same pain relief. Nausea, vomiting and/or constipation. Sleepiness, dizziness, dry mouth, confusion, depression or itching. Physical dependence, meaning you have withdrawal symptoms when a medication is stopped, can develop within a few days. KNOW YOUR RESPONSIBILITIES It is important to know exactly how much and how often to take the opioid pain medications you are prescribed. Never take opioids in higher amounts or more often than prescribed. Do not combine opioids with alcohol or other drugs that cause drowsiness, such as benzodiazepines, also known as benzos, including diazepam and alprazolam, muscle relaxants or sleep aids. Never sell or share prescription opioids. This is illegal. Store opioids in a secure place and out of reach of others (including children, family, friends and visitors). The last page of this document has been signed and retained as a CHART COPY. [employer] Patient Education Materials Destine[facility] Douglass Post-op Instruction 12/2016 (05830) Medication Leaflets My discharge plan and instructions have been reviewed and explained to me and IJOSEFINA CHRISTOPHER S understand my current condition and have read and understand these discharge instructions. I have received a written copy of the plan/instructions. If I have questions, I am aware that I should contact my doctor. 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 Patient states that he is doing well this morning. He is having more pain in his left knee but, when he is medicated, his pain decreases. It never goes away completely but does decrease. He denies any fever, chills, cough, shortness of breath, chest pain, abdominal pain, nausea or dysuria. He has worked with PT and OT this morning and states that he is doing well from therapy standpoint. He was encouraged to take the incentive spirometer home and continue to work on it hourly while he is awake. Patient denies any new problems or concerns today. All questions answered. From hospitalist perspective, patient is medically optimized for discharge home today. Objective Vitals and Measurements T: 36.6 C (Oral) TMIN: 36.1 C (Oral) TMAX: 36.6 C (Oral) HR: 81(Monitored) RR: 14 BP: 111/86 SpO2: 95% Intake and Output 7AM Yesterday to 7AM Today Intake and Output (Last 24 hours) Intake Oral Intake 680.00 Supplement Intake 480.00 Output Stool Count 0.00 Urine Count 6.00 Total Summary Total Intake 1160.00 Total Output 0.00 Physical Exam General: No acute distress. Patient is alert and appropriate. Skin: No rash. Skin is warm, dry and intact. HEENT: Head is normocephalic, atraumatic. Pupils are equal, round and reactive. Neck: Supple. No lymphadenopathy, thyromegaly. Lungs: Bilaterally clear but diminished without crepitation or wheeze. Unlabored. Heart: Heart is regular rhythm, S1, S2. No murmurs, gallops or rubs. Abdomen: Abdomen is soft, nontender, obese. Bowels sounds present in all quadrants. Extremities: No clubbing, cyanosis, or edema. Peripheral pulses palpable. No calf tenderness. Left knee surgical dressing has a small amount of old drainage on it, otherwise intact. Neurological: Patient is awake and alert to person, place and time. Following simple commands, moving all extremities. Weight Dosing Weight: 126.7 kg (07/10/22) Dosing Weight: 126.7 kg (07/10/22) Medications Medications (21) Active Scheduled: (9) acetaminophen 500 mg Tablet 1,000 mg 2 tab(s), Oral, q8h aspirin 81 mg Chewable 81 mg 1 tab(s), Oral, BIDM docusate sodium 100 mg Capsule 100 mg 1 cap(s), Oral, BID docusate-senna (Senokot S) 50 mg-8.6 mg Tablet 2 tab(s), Oral, BID doxycycline hyclate 100 mg Capsule 100 mg 1 cap(s), Oral, q12h famotidine 20 mg tablet 20 mg 1 tab(s), Oral, qDay magnesium hydroxide 8% Suspension 30 mL UD 30 mL, Oral, Daily meloxicam 7.5 mg tablet 7.5 mg 1 tab(s), Oral, BIDM multivitamin (Myadec) with minerals Therapeutic Multiple Vitamins with Minerals Tablet 1 tab(s), Oral, qDayM Continuous: (1) Lactated Ringers 1,000 mL 1,000 mL, Intravenous, 100 mL/hr PRN: (11) acetaminophen 325 mg Tablet 650 mg 2 tab(s), Oral, q4h albuterol - ipratropium 2.5 mg-0.5 mg/3 mL Inhal Iza UD 3 mL, Inhalation, q4hRT diphenhydramine 25 mg tablet 25 mg 1 tab(s), Oral, q6h diphenhyDRAMINE 50 mg/mL (1 mL) INJ 25 mg 0.5 mL, IV Push, q6h ketorolac 30 mg/mL (1 mL) vial 15 mg 0.5 mL, IV Push, q6h morphine 2 mg/mL 1 mL syringe 2 mg 1 mL, IV Push, q1h ondansetron 2 mg/ 1 mL 2 mL INJ 4 mg 2 mL, IV Push, q8h oxycodone 5 mg tablet (immediate release) 5 mg 1 tab(s), Oral, q4h oxycodone 5 mg tablet (immediate release) 10 mg 2 tab(s), Oral, q4h prochlorperazine 10 mg/2 mL vial 5 mg 1 mL, IV Push, q6h sodium biphosphate-sodium phosphate 19 gm-7 gm Enema 133 mL, Rectal, qDay Lab Results 07/11 05:21 WBC: 15.8 H Hgb: 11.7 L Hct: 34.6 L Platelet: 272 Neutrophil %: 74.5 Glucose Level: 127 H Sodium Level: 137 Potassium Level: 3.7 BUN: 18 Creatinine Lvl (s): 0.85 Imaging Results and Diagnostics XR Knee 1 or 2 Views Left Result Date: July 10, 2022 Verified By: NENA COURTNEY, SHYAM Ascencio CLINICAL STATEMENT: IMPRESSION: Satisfactory postoperative appearance of left total knee arthroplasty. EKG No qualifying data available. Assessment/Plan 1. Osteoarthritis of left knee Chronic, s/p left knee arthroplasty yesterday. *Management per primary team. *Continue PO pain medication and antiemetics. *POD #1. 2. COPD (chronic obstructive pulmonary disease) Chronic, controlled *Patient currently on room air with acceptable oxygen saturations and clear lung sounds. *Continue duoneb aerosols as needed for shortness of breath/wheezing. *Continue Bipap at bedtime as at home. 3. HTN (hypertension) Chronic, controlled *Blood pressures soft post-operatively. *Will restart medications tomorrow with hold parameters. 4. Obesity Chronic *Encourage diet and exercise. 5. Tobacco use Chronic *Patient reports that he is working on quitting. Currently down to 5 cigarettes per day. *Denies need for nicotine patch today. Patient seen and evaluated this morning in his room. Reviewed vital signs and labs results and feel that, from hospitalist perspective, patient is optimized medically for discharge home today. DVT prophylaxis with aspirin 81 mg PO BID, TEDs. Code status: Full Code. Labs, diagnostic test and progress notes reviewed as noted in HPI. Plan of care discussed with patient. All questions answered. Patient verbalizes understanding and is agreeable with plan of care. This case was discussed with collaborating physician, Dr. Nasir Chavira. Time Spent 35 minutes Digitally Signed by RAINE GARCIA on 07/11/2022 12:41 PM [facility] 07-11-2022 Hospital Discharge instructions Patient Education 07/11/2022 06:33:10 5 - [facility] Post-op Instruction 12/2016 (52204) [facility] Post-operative Instructions PLEASE FOLLOW [facility] POST-OP INSTRUCTIONS GIVEN WATCH FOR SIGNS OF INFECTION: call the office ([phone]) if experencing any of the following: (Usually appears 36-48 hours after surgery) Increased temperature (101 degrees Fahrenheit or higher) Redness or swelling Increased uncontrolled pain Foul odor or drainage Calf discomfort Significant swelling Or if having any chest pain, shortness of breath, or difficulty breathing or swallowing call the office or go the nearest Emergency Room. If you have any questions, please call your doctor at the number listed on your follow up instructions. Form: 338A ([id number]) R: 09/16 Follow Up Care 06/19/2022 12:37:03 With:[facility] on site Address: When:07/16/2022 11:00:00 Comments:Physical Therapy Initial Eval on July 16, 2022 at 11am. With:FELIPE LAU Address: [facility] [address] [place] [id number] (1) When:07/23/2022 14:45:00 [facility] 07-11-2022 Note Date of Service July 11, 2022 Subjective The patient was sitting in bed upon examination. Patient denies any chest pain, shortness of breath, dizziness, lightheadedness, nausea or vomiting, or calf pain. No adverse overnight events. Pain has been controlled on medications. Patient overall is doing well this morning. Patient is currently with use of his BiPAP machine. Pain has been well controlled so far. No complaints this morning. He has been up walking this morning. Objective Vitals and Measurements T: 36.5 C (Oral) TMIN: 36.1 C (Oral) TMAX: 36.6 C (Oral) HR: 82(Monitored) RR: 18 BP: 114/72 SpO2: 96% HT: 172.7 cm WT: 126.7 kg BMI: 42.48 Intake and Output 7AM Yesterday to 7AM Today Intake and Output (Last 24 hours) Intake Administration Information 1212.13 Oral Intake 480.00 Supplement Intake 240.00 Output Intra-Op EBL 300.00 Stool Count 0.00 Urine Count 5.00 Total Summary Total Intake 1932.13 Total Output 300.00 Fluid Balance 1632.13 Physical Exam Vital signs stable, afebrile SCDs and ROLF hose are in place bilaterally Patient is able to plantarflex and dorsiflex actively Sensation is intact to saphenous, sural, superficial and deep peroneal, and tibial distribution Proximal pin site and distal pin site dressing is clean dry and intact. There is trace drainage over the middle one third of the Mepilex dressing Negative signs and symptoms of DVT, negative Homans bilaterally Weight Dosing Weight: 126.7 kg (07/10/22) Dosing Weight: 126.7 kg (07/10/22) Medications Medications (23) Active Scheduled: (11) acetaminophen 500 mg Tablet 1,000 mg 2 tab(s), Oral, q8h aspirin 81 mg Chewable 81 mg 1 tab(s), Oral, BIDM bisacodyl 5 mg EC tablet 10 mg 2 tab(s), Oral, Once docusate sodium 100 mg Capsule 100 mg 1 cap(s), Oral, BID docusate-senna (Senokot S) 50 mg-8.6 mg Tablet 2 tab(s), Oral, BID doxycycline hyclate 100 mg Capsule 100 mg 1 cap(s), Oral, q12h famotidine 20 mg tablet 20 mg 1 tab(s), Oral, qDay magnesium hydroxide 8% Suspension 30 mL UD 30 mL, Oral, Daily meloxicam 7.5 mg tablet 7.5 mg 1 tab(s), Oral, BIDM multivitamin (Myadec) with minerals Therapeutic Multiple Vitamins with Minerals Tablet 1 tab(s), Oral, qDayM ondansetron 2 mg/ 1 mL 2 mL INJ 4 mg 2 mL, IV Push, q8h Continuous: (1) Lactated Ringers 1,000 mL 1,000 mL, Intravenous, 100 mL/hr PRN: (11) acetaminophen 325 mg Tablet 650 mg 2 tab(s), Oral, q4h albuterol - ipratropium 2.5 mg-0.5 mg/3 mL Inhal Iza UD 3 mL, Inhalation, q4hRT diphenhydramine 25 mg tablet 25 mg 1 tab(s), Oral, q6h diphenhyDRAMINE 50 mg/mL (1 mL) INJ 25 mg 0.5 mL, IV Push, q6h ketorolac 30 mg/mL (1 mL) vial 15 mg 0.5 mL, IV Push, q6h morphine 2 mg/mL 1 mL syringe 2 mg 1 mL, IV Push, q1h ondansetron 2 mg/ 1 mL 2 mL INJ 4 mg 2 mL, IV Push, q8h oxycodone 5 mg tablet (immediate release) 5 mg 1 tab(s), Oral, q4h oxycodone 5 mg tablet (immediate release) 10 mg 2 tab(s), Oral, q4h prochlorperazine 10 mg/2 mL vial 5 mg 1 mL, IV Push, q6h sodium biphosphate-sodium phosphate 19 gm-7 gm Enema 133 mL, Rectal, qDay Lab Results 07/11 05:21 WBC: 15.8 H Hgb: 11.7 L Hct: 34.6 L Platelet: 272 Neutrophil %: 74.5 Glucose Level: 127 H Sodium Level: 137 Potassium Level: 3.7 BUN: 18 Creatinine Lvl (s): 0.85 EKG No qualifying data available. Assessment/Plan 1. Osteoarthritis of left knee 1. Status post left total knee arthroplasty postop day #1 2. Continue pain medications: Tylenol, meloxicam, oxycodone. Do not take any other nonsteroidal anti-inflammatories while on meloxicam/Mobic 3. DVT prophylaxis: Take 81 mg aspirin twice daily with food for 4 weeks postoperatively for DVT prophylaxis. Patient denies past history of DVT or pulmonary embolism. 4. Physical therapy: Weightbearing as tolerated with walker 5. H & H: 11.7/34.6, asymptomatic. Postoperative anemia secondary to acute blood loss from surgery without intraoperative complications. 6. Reactive leukocytosis: Currently 15.8, afebrile. Patient did receive Decadron intraoperatively 7. Continue antibiotics: Patient is currently on doxycycline for 2 weeks postoperatively due to elevated BMI greater than 40.0. He was instructed with this medication he has at greater risk and more sensitive to sunlight and should take appropriate precautions. Also recommended patient use probiotic while on the antibiotic. He voiced understanding and agreement. 8. Encouraged incentive spirometry 9. Continue postoperative medical management per medicine 10. Disposition: Plan will be for probable discharge home this afternoon as long as patient is medically stable, tolerates therapy, and pain is well controlled. He does have physical therapy established postoperatively. He would like his medications E scribed to [facility] in [facility]. He will follow-up per postop instructions. He will contact her office with any concerns or questions upon discharge. I have reviewed the [place] Automated Rx Reporting System (OARRS) report for this patient for refill pattern and other prescriber involvement as part of the appropriate surveillance for the provision of acute and chronic controlled medications. The report was requested and reviewed on the date of this entry, and was considered in the prescribing process This dictation was created using voice recognition software. Phonetic and/or grammatical errors may exist. 2. COPD (chronic obstructive pulmonary disease) 3. HTN (hypertension) 4. Obesity 5. Tobacco use Digitally Signed by FELIPE LAU PA-C on 07/11/2022 06:31 AM [facility] 07-10-2022 Note Date of Service 07/10/2022 Reason for Consultation Medical management Referring Physician Dr. Gricelda Oliver History of Present Illness Patient is a 62-year-old male, who follows with Dr. Opal Medina with a past medical history significant for COPD, hypertension, obesity and tobacco use, presents to [facility] for an elective left total knee arthroplasty by Dr. Gricelda Oliver. Patient states that he has had osteoarthritis in both knees for quite some time. He has tried conservative therapies such as medication, injections, and therapy without any significant improvement in his pain. Patient felt that this pain was impacting his ability to continue to ambulate much less continue to work. He elected to proceed with surgical intervention today with Dr. Oliver. Patient is seen post-operatively on the medical surgical unit while resting in bed. His is at the bedside. Patient states that he feels fine post-operatively. He denies any significant pain and is able to move his toes without difficulty. He has had some sips of water since PACU and is tolerating water without any nausea. He is anxious to get something to eat. He denies any fever, chills, cough, shortness of breath, chest pain, abdominal pain, nausea or dysuria. 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 Patient aware that hospitalist service was consulted for medical management. All questions answered. Review of Systems Review of Systems: Reviewed in detail, including general health, HEENT, cardiovascular, respiratory, gastrointestinal, genitourinary, endocrine, musculoskeletal, neurologic, vascular, skin, and psychiatric. All are negative except for those listed in the History of Present Illness. Physical Exam Vitals and Measurements T: 36.4 C (Oral) HR: 88(Monitored) RR: 18 BP: 116/76 SpO2: 92% HT: 172.7 cm WT: 126.7 kg BMI: 42.48 Weight Dosing Weight: 126.7 kg (07/10/22) Dosing Weight: 126.7 kg (07/10/22) General: No acute distress. Patient is alert and appropriate. Skin: No rash. Skin is warm, dry and intact. HEENT: Head is normocephalic, atraumatic. Pupils are equal, round and reactive. Neck: Supple. No lymphadenopathy, thyromegaly. Lungs: Bilaterally clear but diminished without crepitation or wheeze. Unlabored. Heart: Heart is regular rhythm, S1, S2. No murmurs, gallops or rubs. Abdomen: Abdomen is soft, nontender, obese. Bowels sounds present in all quadrants. Extremities: No clubbing, cyanosis, or edema. Peripheral pulses palpable. No calf tenderness. Left knee surgical dressing is dry and intact. Neurological: Patient is awake and alert to person, place and time. Following simple commands, moving all extremities. Lab Results No 36 Hour Lab Data Imaging Results and Diagnostics XR Knee 1 or 2 Views Left Result Date: July 10, 2022 Verified By: NENA COURTNEY, SHYAM Ascencio CLINICAL STATEMENT: IMPRESSION: Satisfactory postoperative appearance of left total knee arthroplasty. Assessment/Plan 1. Osteoarthritis of left knee Chronic, s/p left knee arthroplasty *Management per primary team. *Continue IV and PO pain medication and antiemetics. *POD #0. 2. COPD (chronic obstructive pulmonary disease) Chronic, controlled *Patient currently on room air with acceptable oxygen saturations and clear lung sounds. *Start duoneb aerosols as needed for shortness of breath/wheezing. *Continue Bipap at bedtime as at home. 3. HTN (hypertension) Chronic, controlled *Blood pressures soft post-operatively. *Will restart medications tomorrow with hold parameters. 4. Obesity Chronic *Encourage diet and exercise. 5. Tobacco use Chronic *Patient reports that he is working on quitting. Currently down to 5 cigarettes per day. *Denies need for nicotine patch today. DVT prophylaxis with SCDs, TEDS. Code status: Full Code. Labs, diagnostic test and progress notes reviewed as noted in HPI. Plan of care discussed with patient. All questions answered. Patient verbalizes understanding and is agreeable with plan of care. This case was discussed with collaborating physician, Dr. Jacob Ann. Problem List/Past Medical History Ongoing Abscess of left leg Cancer of skin of face Cellulitis of leg COPD (chronic obstructive pulmonary disease) Obesity Historical No qualifying data Procedure/Surgical History Arthroplasty of knee: 07/10/22 Abscess: 07/17/21 History of hernia repair Excision of melanoma Medications Inpatient Danielle Aspirin, 81 mg= 1 tab(s), Oral, BIDM Benadryl, 25 mg= 1 tab(s), Oral, q6h, PRN Benadryl, 25 mg= 0.5 mL, IV Push, q6h, PRN Cerovite Advanced Formula, 1 tab(s), Oral, qDayM Colace, 100 mg= 1 cap(s), Oral, BID doxycycline, 100 mg= 1 cap(s), Oral, q12h Dulcolax Laxative, 10 mg= 2 tab(s), Oral, Once Fleet Enema, 133 mL, Rectal, qDay, PRN Kefzol LR 1,000 mL, 1000 mL, Intravenous Milk of Magnesia, 30 mL, Oral, Daily Mobic, 7.5 mg= 1 tab(s), Oral, BIDM morphine, 2 mg= 1 mL, IV Push, q1h, PRN oxyCODONE 5 mg oral tablet ( IMMEDIATE release ), 5 mg= 1 tab(s), Oral, q4h, PRN oxyCODONE 5 mg oral tablet ( IMMEDIATE release ), 10 mg= 2 tab(s), Oral, q4h, PRN Pepcid, 20 mg= 1 tab(s), Oral, qDay prochlorperazine, 5 mg= 1 mL, IV Push, q6h, PRN Senokot S, 2 tab(s), Oral, BID Toradol, 15 mg= 0.5 mL, IV Push, q6h, PRN Tylenol, 1000 mg= 2 tab(s), Oral, q8h Tylenol, 650 mg= 2 tab(s), Oral, q4h, PRN Zofran, 4 mg= 2 mL, IV Push, q8h Zofran, 4 mg= 2 mL, IV Push, q8h, PRN Home Albuterol (Eqv-ProAir HFA) 90 mcg/inh inhalation aerosol, 2 puff(s), Inhalation, q4h, PRN aspirin 325 mg oral delayed release tablet, 325 mg= 1 tab(s), Oral, qDay hydroCHLOROthiazide 50 mg oral tablet, 50 mg= 1 tab(s), Oral, qDay Multivitamin, 1 tab(s), Oral, Daily Vitamin D3 25 mcg (1000 intl units) oral tablet, 50 mcg= 2 tab(s), Oral, Daily Allergies NKA Social History Smoking Status - 09/09/2017 Former smoker Alcohol - Denies Alcohol Use, 09/09/2017 Use: denies., 06/24/2021 Home/Environment Domestic Concerns: Denies. Living situation: Home/Independent. Safe place to go: Yes. Lives In: Single level home. Current Home Treatments Apnea monitoring. Professional Skilled Services or Special Community Resources None. Financial concerns: Yes. Spouse Name: Sarah. Marital Status: ., 07/10/2022 Nutrition/Health Type of diet: Regular. Appetite Excellent. Eating Difficulties None. Skin Breakdown No. Caffeine intake amount: [employer] 4 cups a day., 07/10/2022 Substance Abuse - Denies Substance Abuse, 09/09/2017 Use: denies., 06/24/2021 Tobacco Nicotine Use: 5-9 cigarettes (between 1/4 to 1/2 pack)/day in last 30 days. Type: Cigarettes., 07/10/2022 Family History Cancer: Mother. Heart disease: Grandparent. Stroke: Grandparent. Immunizations hepatitis B adult vaccine: 0 unknown unit (02/14/99) hepatitis B adult vaccine: 0 unknown unit (01/12/99) SARS-CoV-2 (COVID-19) mRNA-1273 vaccine: 0.25 unknown unit (09/24/21) SARS-CoV-2 (COVID-19) mRNA-1273 vaccine: 0.25 unknown unit (05/03/21) SARS-CoV-2 (COVID-19) mRNA-1273 vaccine: 0.5 unknown unit (05/06/21) SARS-CoV-2 (COVID-19) mRNA-1273 vaccine: 0.5 unknown unit (08/10/20) tetanus/diphth/pertuss (Tdap) adult/adol: 0.5 mL (08/08/20) zoster vaccine, inactivated: 1 unknown unit (09/24/21) zoster vaccine, inactivated: 1 unknown unit (05/03/21) Digitally Signed by RAINE GARCIA on 07/10/2022 11:32 AM [facility] 07-10-2022 Note ORIGINAL EXAMINATION: TWO XRAY VIEWS OF THE LEFT KNEE 07/10/2022 9:11 am COMPARISON: CT of the left knee on 07/02/2022. HISTORY: ORDERING SYSTEM PROVIDED HISTORY: Reason for Exam: Status Post Arthroplasty FINDINGS: Patient has undergone left total knee arthroplasty. Prosthetic components are in satisfactory position. Alignment of tibiofemoral and patellofemoral joints is normal. Postoperative intra-articular and soft tissue gas is present. IMPRESSION: Satisfactory postoperative appearance of left total knee arthroplasty. Interpreted by: Shyam Canales MD Preliminary Report By: Shyam Canales MD Electronically signed By Shyam Canales MD Dictated Date: 07/10/2022 9:16:30 AM Prelim Date: 07/10/2022 9:17:56 AM Sign Date: 07/10/2022 9:17:56 AM Ordering Provider: GRICELDA OLIVER [facility] 07-10-2022 Note ORIGINAL EXAMINATION: TWO XRAY VIEWS OF THE LEFT KNEE 07/10/2022 9:11 am COMPARISON: CT of the left knee on 07/02/2022. HISTORY: ORDERING SYSTEM PROVIDED HISTORY: Reason for Exam: Status Post Arthroplasty FINDINGS: Patient has undergone left total knee arthroplasty. Prosthetic components are in satisfactory position. Alignment of tibiofemoral and patellofemoral joints is normal. Postoperative intra-articular and soft tissue gas is present. IMPRESSION: Satisfactory postoperative appearance of left total knee arthroplasty. Interpreted by: Shyam Canales MD Preliminary Report By: Shyam Canales MD Electronically signed By Shyam Canales MD Dictated Date: 07/10/2022 9:16:30 AM Prelim Date: 07/10/2022 9:17:56 AM Sign Date: 07/10/2022 9:17:56 AM Ordering Provider: GRICELDA OLIVER [facility] 07-10-2022 Anesthesiology Consult note Patient: ILDEFONSO ROCHA Age: 62 years Sex: Male : 1960 Associated Diagnoses: None Author: NICOLASA BEE Preoperative Information Anesthesia history Patient's history: negative. Family's history: negative. Health Status Allergies: Allergic Reactions (Selected) NKA, Allergies (1) ActiveReaction NKANone Documented Current medications: (Selected) Inpatient Medications Ordered Betadine 10% topical solution: 17.5 mL, mL/hr, Topical (INT), PREOP pharm Decadron: 10 mg, 1 mL, IV Push, AsDirected Kefzol: 3 gram(s), 200 mL/hr, IV Piggyback, PREOP pharm LR 1,000 mL: 20 mL/hr, Intravenous, Stop: 07/10/22 23:59:00 EST Naropin 25 mg + Toradol 15 mg + EPINEPHrine 1 mg/mL injectable solution 0.3 mg + morphine 2.5 mg...: 25 mg, 5 mL, mL/hr, Other, PREOP pharm Naropin 25 mg + Toradol 15 mg + EPINEPHrine 1 mg/mL injectable solution 0.3 mg + morphine 2.5 mg...: 25 mg, 5 mL, mL/hr, Other, PREOP pharm tranexamic acid 1 g / 100 mL 0.7% NaCl PMX: 1 gram(s), 100 mL, 300 mL/hr, IV Piggyback, AsDirected tranexamic acid 1 g / 100 mL 0.7% NaCl PMX: 1 gram(s), 100 mL, 300 mL/hr, IV Piggyback, AsDirected Documented Medications Documented Albuterol (Eqv-ProAir HFA) 90 mcg/inh inhalation aerosol: 1 puff(s), Inhalation, q6hr, per patient takes daily every 4 to 6 days, PRN: Shortness of breath or wheezing, 0 Refill(s) Multivitamin: 1 tab(s), Oral, Daily, 0 Refill(s) Vitamin D3: 1,000 unit(s), 1 tab(s), Oral, Daily, 0 Refill(s) aspirin 325 mg oral delayed release tablet: 325 mg, 1 tab(s), Oral, qDay, 90 tab(s), 0 Refill(s) hydroCHLOROthiazide 50 mg oral tablet: 50 mg, 1 tab(s), Oral, qDay, 30 tab(s), 0 Refill(s), Medications (8) Active Scheduled: (7) ceFAZolin 3 gram(s), IV Piggyback, PREOP pharm dexamethasone 10 mg/mL (1mL) SDV 10 mg 1 mL, IV Push, AsDirected povidone iodine topical 17.5 mL, Topical (INT), PREOP pharm ropivacaine 25 mg + ketorolac 15 mg + epinephrine 0.3 mg + morphine 2.5 mg 25 mg 5 mL, Other, PREOP pharm ropivacaine 25 mg + ketorolac 15 mg + epinephrine 0.3 mg + morphine 2.5 mg 25 mg 5 mL, Other, PREOP pharm tranexamic acid PMX 1 gram(s) 100 mL, IV Piggyback, AsDirected tranexamic acid PMX 1 gram(s) 100 mL, IV Piggyback, AsDirected Continuous: (1) Lactated Ringers 1,000 mL 1,000 mL, Intravenous, 20 mL/hr PRN: (0) Problem list: Medical Abscess of left leg / SNOMED CT 365864813 / Confirmed Cellulitis of leg / SNOMED CT 8909719470 / Confirmed COPD (chronic obstructive pulmonary disease) / SNOMED CT 59323496 / Confirmed Cancer of skin of face / SNOMED CT 6596720989 / Confirmed Obesity / SNOMED CT 2096329608 / Confirmed, Active Problems (7) Abscess of left leg Cancer of skin of face Cellulitis of leg COPD (chronic obstructive pulmonary disease) HTN (hypertension) Obesity Tobacco use Histories Past Medical History: Active COPD (chronic obstructive pulmonary disease) (73378592) Obesity (0178970985) Cancer of skin of face ([id number]) Family History: Heart disease Grandparent Stroke Grandparent Cancer Mother Procedure history: Abscess ([id number]) on 07/17/2021 at 61 Years. Comments: 07/21/2021 13:37 Meeta Miller LPN I&D SCROTAL ABSCESS (OFFICE) Excision of melanoma ([id number]). History of hernia repair ([id number]). Comments: 06/24/2021 19:39 EST - SANA Miranda Uyen occured as Social History Social & Psychosocial Habits Alcohol 09/09/2017Risk Assessment: Denies Alcohol Use 06/24/2021 Use: denies Substance Abuse 09/09/2017Risk Assessment: Denies Substance Abuse 06/24/2021 Use: denies Tobacco 07/10/2022 Tobacco Use: 5-9 cigarettes (between 1 Type: Cigarettes Nutrition/Health 07/10/2022 Type of diet: Regular Appetite Excellent Eating Difficulties None . Physical Examination Vital Signs 07/10/2022 5:46 EST Temperature Temporal Artery 36.4 DegC Apical Heart Rate 74 bpm Respiratory Rate 15 br/min Systolic Blood Pressure Non-Invasive 117 mmHg Diastolic Blood Pressure Non-Invasive 76 mmHg Vital Signs(last 24 hrs) Last Charted Resp Rate 15 br/min (JUL 10 05:46) [id number] mmHg (JUL 10 05:46) DBP76 mmHg (JUL 10 05:46) Measurements from flowsheet : Measurements 07/10/2022 5:46 EST Height 172.7 cm Height in inches 68 inch(es) Admission Weight 126.7 kg Weight Lbs 278.7 lb [place] Body Weight 68.38 kg Admission Body Mass Index 42.48 m2 Pain assessment: Pain Assessment 07/10/2022 6:27 EST Primary Pain Intensity 0 07/10/2022 5:46 EST Primary Pain Intensity 0 Pain Scale Type 0-10 Pain scale . General: Alert and oriented, Mild distress. Airway: Normal temporomandibular joint mobility. Mallampati classification: III (soft palate, base of uvula visible). Dentition Evaluation: Dentures, upper. Respiratory: Respirations are non-labored. Cardiovascular: Normal rate, Regular rhythm. Neurologic: Alert, Oriented. Review / Management Results review: No qualifying data available , Lab results 07/10/2022 6:27 EST Primary Pain Intensity 0 celecoxib 400 mg mg famotidine 20 mg mg oxyCODONE 10 mg mg Lactated Ringers Injection 1,000 mL mL 07/10/2022 6:20 EST citric acid-sodium citrate Not Done: Other Med (Not Done) 07/10/2022 5:46 EST Height 172.7 cm Height in inches 68 inch(es) Admission Weight 126.7 kg Weight Lbs 278.7 lb [place] Body Weight 68.38 kg Admission Body Mass Index 42.48 m2 Temperature Temporal Artery 36.4 DegC Apical Heart Rate 74 bpm Respiratory Rate 15 br/min Systolic Blood Pressure Non-Invasive 117 mmHg Diastolic Blood Pressure Non-Invasive 76 mmHg Primary Pain Intensity 0 Pain Scale Type 0-10 Pain scale Monitor Alarms On and Limits Checked Heart Rhythm Regular Oxygen Therapy Room air Oxygen Saturation 97 % Abdomen Description Non-distended Abdomen Palpation Non-Tender Bowel Sounds All Quadrants Present Urinary Elimination Voiding, no difficulties Skin Temperature Warm Skin Description Normal for ethnicity Skin Integrity Intact Mucous Membrane Color [place] IV Present Present Hand Right 07/10/2022 20 gauge Peripheral IV Activity: Assessed Peripheral IV Dressing Condition: Clean, Dry, Intact Peripheral IV Dressing Activity: Applied Peripheral IV Line Status/Patency: Flushes easily Peripheral IV Site Condition: No complications Peripheral IV Number of Attempts: 1 Extremity Movement Equal Characteristics of Speech Clear Level of Consciousness Alert Strength All Extremities Strong Tone All Extremities Normal Sensation All Extremities Intact Affect/Behavior Appropriate, Calm, Cooperative Orientation Oriented x 4 Allergies Yes Consent Form Signed Yes Patient Dressed In Hospital gown CHG Preoperative Wash/Wipe Night before procedure, Day of procedure Preop Nasal Swab Povidone-Iodine CHG Skin Prep Completed for Eligible Surgery History & Physical Update On Chart Yes History & Physical On Chart Yes Obstructive Sleep Apnea Assess Completed Yes Orientation Assessment Oriented x 4 Belongings At Bedside CPAP, Pants, Shoes, Socks, T-shirt, Undergarments Activity Status ADL Awake, Resting Assistive Device None SCD On/Re-applied right knee high Antiembolism Stocking On/Re-applied right thigh high NPO Status Maintained Standard Safety ID band on, Allergy Band on, Call device within reach, Bed in low position, Wheels locked, Upper/Half-Length side-rails up, Phone within reach, personal items within reach Demonstrates Correct Call Light Use Yes RN Coordination of Care In Error (In Error) Allergy Band on and Verified Yes Patient ID Band on and Verified Yes Implants Verified Yes Pacemaker/AICD Verified Yes Anesthesia Consent Signed Yes Blood Consent Signed Yes Last Fluid Intake 07/09/2022 19:00 Last Food Intake 07/09/2022 18:30 Last Void 07/10/2022 5:52 07/10/2022 5:44 EST Sleep Apnea Snore No Sleep Apnea Tired No Sleep Apnea Obstruction No Sleep Apnea Pressure Yes Sleep Apnea BMI Yes Sleep Apnea Neck Yes Sleep Apnea Score 5 HI High Risk for Sleep Apnea Yes Infectious Disease Symptoms Patient states no symptoms Safety Brochure Information Reviewed Yes [facility] Video Viewed No Teaching Evaluation Verbalizes/Nonverbally indicates understanding Admission Note-Nursing Same Day Patient History (Modified) . Assessment and Plan [place] [employer] (ASA) physical status classification: Class III. Anesthetic Preoperative Plan Anesthetic technique: Spinal. Regional: Spinal. Postoperative pain management: adductor canal block. Risks discussed: nausea, vomiting, headache, hypotension, allergic reaction, serious complications. Informed consent: signed by patient. Digitally Signed by NICOLASA BEE on 07/10/2022 06:44 AM [facility] 05-11-2022 History of Present illness Narrative Patient is a 61-year-old male presents today with known osteoarthritis of his bilateral knees. He had injections 3 months ago which she is only getting about 1 month of relief. He states the pain today is 6 out of 10 nonradiating. He denies any instability or mechanical symptoms. He is still trying to lose weight. He understands that he needs to be at a BMI of 40 prior to undergoing surgery. He would like a referral to medical weight loss today. I think this is reasonable. He would like a cortisone injections in both of his knees today which is reasonable. Discussion:I discussed the conservative treatment options for severe osteoarthritis bilateral knee including but not limited to physical therapy, oral NSAIDS, activity and lifestyle modification, and corticosteroid injections. Pt has elected to try a cortisone injection today. I have explained the risk and benefits of an injection including the possibility of joint infection, bleeding, damage to cartilage, allergic reaction. Patient verbalized understanding and gave verbal consent wishes to proceed with a intraarticular cortisone injection for their knee.ProcedureWith the patient's informed verbal consent, the bilateral knees were prepped in standard sterile fashion with Chlorhexidine. The skin was then anesthetized with ethyl chloride spray and cleaned again with Chlorhexidine. The knee was then apirated/injected with a prefilled 20-gauge syringe of 40 mg Kenalog + 4 ml Lidocaine using the inferior lateral approach without complications. Each knee as a separate procedure The patient tolerated this well and felt immediate initial relief of symptoms. A bandaid was applied and the patient ambulated out of the clinic on ther own accord without difficulty. Patient was instructed to avoid physical activity for 24-48 hours to prevent the knees from swelling and may ice the knees as tolerated. Patient should contact the office if any signs of of infection appear: redness, fever, chills, drainage, swelling or warmth to the knees. Pt understands that the injections can be repeated no sooner than 3 months.Plan:1. osteoarthritis bilateral kneesPT can resume activities as tolerated. She can follow-up in 3 months, no x-rays needed. All questions were answered.This note was created using voice recognition software and was not corrected for typographical or grammatical errors.. [facility] Work Phone: 03-30-2022 History of Present illness Narrative Patient is here for follow-up 4 months for his hypertension, pulmonary disease and medication management.Patient asked for refill on tramadol which I gave him to get through the honeymoon because of leg pain and stiffness.He notes that every morning when he wakes up he can barely get out of bed. He has pain primarily around the right lower back extending into the right buttocks and all the way down the right leg.The left leg is also painful but the right side is worse.He feels like he needs to stretch and get his muscles to relax in the morning before he can get up to stand and even walk to the bathroom. He says it is very uncomfortable and then as the day goes by he slowly limbers up and is able to start walking. [facility] Work Phone: 10-21-2021 History of Present illness Narrative Patient is a 61-year-old male presents today with known osteoarthritis of his bilateral knees. He had injections 3 months ago which she is only getting about 1 month of relief. He states the pain today is 6 out of 10 nonradiating. He denies any instability or mechanical symptoms. He is still trying to lose weight. He understands that he needs to be at a BMI of 40 prior to undergoing surgery. He would like a referral to medical weight loss today. I think this is reasonable. He would like a cortisone injections in both of his knees today which is reasonable. Discussion:I discussed the conservative treatment options for severe osteoarthritis bilateral knee including but not limited to physical therapy, oral NSAIDS, activity and lifestyle modification, and corticosteroid injections. Pt has elected to try a cortisone injection today. I have explained the risk and benefits of an injection including the possibility of joint infection, bleeding, damage to cartilage, allergic reaction. Patient verbalized understanding and gave verbal consent wishes to proceed with a intraarticular cortisone injection for their knee.ProcedureWith the patient's informed verbal consent, the bilateral knees were prepped in standard sterile fashion with Chlorhexidine. The skin was then anesthetized with ethyl chloride spray and cleaned again with Chlorhexidine. The knee was then apirated/injected with a prefilled 20-gauge syringe of 40 mg Kenalog + 4 ml Lidocaine using the inferior lateral approach without complications. Each knee as a separate procedure The patient tolerated this well and felt immediate initial relief of symptoms. A bandaid was applied and the patient ambulated out of the clinic on ther own accord without difficulty. Patient was instructed to avoid physical activity for 24-48 hours to prevent the knees from swelling and may ice the knees as tolerated. Patient should contact the office if any signs of of infection appear: redness, fever, chills, drainage, swelling or warmth to the knees. Pt understands that the injections can be repeated no sooner than 3 months.Plan:1. osteoarthritis bilateral kneesPT can resume activities as tolerated. She can follow-up in 3 months, no x-rays needed. All questions were answered.This note was created using voice recognition software and was not corrected for typographical or grammatical errors.. [id number] Work Phone: 10-18-2021 History of Present illness Narrative Patient is a 61-year-old male presents today with known osteoarthritis of his bilateral knees. He had injections 3 months ago which she is only getting about 1 month of relief. He states the pain today is 6 out of 10 nonradiating. He denies any instability or mechanical symptoms. He is still trying to lose weight. He understands that he needs to be at a BMI of 40 prior to undergoing surgery. He would like a referral to medical weight loss today. I think this is reasonable. He would like a cortisone injections in both of his knees today which is reasonable. Discussion:I discussed the conservative treatment options for severe osteoarthritis bilateral knee including but not limited to physical therapy, oral NSAIDS, activity and lifestyle modification, and corticosteroid injections. Pt has elected to try a cortisone injection today. I have explained the risk and benefits of an injection including the possibility of joint infection, bleeding, damage to cartilage, allergic reaction. Patient verbalized understanding and gave verbal consent wishes to proceed with a intraarticular cortisone injection for their knee.ProcedureWith the patient's informed verbal consent, the bilateral knees were prepped in standard sterile fashion with Chlorhexidine. The skin was then anesthetized with ethyl chloride spray and cleaned again with Chlorhexidine. The knee was then apirated/injected with a prefilled 20-gauge syringe of 40 mg Kenalog + 4 ml Lidocaine using the inferior lateral approach without complications. Each knee as a separate procedure The patient tolerated this well and felt immediate initial relief of symptoms. A bandaid was applied and the patient ambulated out of the clinic on ther own accord without difficulty. Patient was instructed to avoid physical activity for 24-48 hours to prevent the knees from swelling and may ice the knees as tolerated. Patient should contact the office if any signs of of infection appear: redness, fever, chills, drainage, swelling or warmth to the knees. Pt understands that the injections can be repeated no sooner than 3 months.Plan:1. osteoarthritis bilateral kneesPT can resume activities as tolerated. She can follow-up in 3 months, no x-rays needed. All questions were answered.This note was created using voice recognition software and was not corrected for typographical or grammatical errors.. [id number] Work Phone: 06-27-2021 Hospital Discharge instructions Patient Education 06/27/2021 12:15:21 Skin Abscess Skin Abscess A skin abscess is an infected area on or under your skin that contains a collection of pus and other material. An abscess may also be called a furuncle, carbuncle, or boil. An abscess can occur in or on almost any part of your body. Some abscesses break open (rupture) on their own. Most continue to get worse unless they are treated. The infection can spread deeper into the body and eventually into your blood, which can make you feel ill. Treatment usually involves draining the abscess. What are the causes? An abscess occurs when germs, like bacteria, pass through your skin and cause an infection. This may be caused by: A scrape or cut on your skin. A puncture wound through your skin, including a needle injection or insect bite. Blocked oil or sweat glands. Blocked and infected hair follicles. A cyst that forms beneath your skin (sebaceous cyst) and becomes infected. What increases the risk? This condition is more likely to develop in people who: Have a weak body defense system (immune system). Have diabetes. Have dry and irritated skin. Get frequent injections or use illegal IV drugs. Have a foreign body in a wound, such as a splinter. Have problems with their lymph system or veins. What are the signs or symptoms? Symptoms of this condition include: A painful, firm bump under the skin. A bump with pus at the top. This may break through the skin and drain. Other symptoms include: Redness surrounding the abscess site. Warmth. Swelling of the lymph nodes (glands) near the abscess. Tenderness. A sore on the skin. How is this diagnosed? This condition may be diagnosed based on: A physical exam. Your medical history. A sample of pus. This may be used to find out what is causing the infection. Blood tests. Imaging tests, such as an ultrasound, CT scan, or MRI. How is this treated? A small abscess that drains on its own may not need treatment. Treatment for larger abscesses may include: Moist heat or heat pack applied to the area several times a day. A procedure to drain the abscess (incision and drainage). Antibiotic medicines. For a severe abscess, you may first get antibiotics through an IV and then change to antibiotics by mouth. Follow these instructions at home: Medicines Take eqrp-mcm-zyjwrrd and prescription medicines only as told by your health care provider. If you were prescribed an antibiotic medicine, take it as told by your health care provider. Do not stop taking the antibiotic even if you start to feel better. Abscess care If you have an abscess that has not drained, apply heat to the affected area. Use the heat source that your health care provider recommends, such as a moist heat pack or a heating pad. ?Place a towel between your skin and the heat source. ?Leave the heat on for 20 30 minutes. ?Remove the heat if your skin turns bright red. This is especially important if you are unable to feel pain, heat, or cold. You may have a greater risk of getting burned. Follow instructions from your health care provider about how to take care of your abscess. Make sure you: ?Cover the abscess with a bandage (dressing). ?Change your dressing or gauze as told by your health care provider. ?Wash your hands with soap and water before you change the dressing or gauze. If soap and water are not available, use hand audiovisual production specialist. Check your abscess every day for signs of a worsening infection. Check for: ?More redness, swelling, or pain. ?More fluid or blood. ?Warmth. ?More pus or a bad smell. General instructions To avoid spreading the infection: ?Do not share personal care items, towels, or hot tubs with others. ?Avoid making skin contact with other people. Keep all follow-up visits as told by your health care provider. This is important. Contact a health care provider if you have: More redness, swelling, or pain around your abscess. More fluid or blood coming from your abscess. Warm skin around your abscess. More pus or a bad smell coming from your abscess. A fever. Muscle aches. Chills or a general ill feeling. Get help right away if you: Have severe pain. See red streaks on your skin spreading away from the abscess. Summary A skin abscess is an infected area on or under your skin that contains a collection of pus and other material. A small abscess that drains on its own may not need treatment. Treatment for larger abscesses may include having a procedure to drain the abscess and taking an antibiotic. This information is not intended to replace advice given to you by your health care provider. Make sure you discuss any questions you have with your health care provider. Document Released: 02/06/2006 Document Revised: 08/20/2019 Document Reviewed: 06/12/2018 [employer] Patient Education 2020 [employer] 06/27/2021 12:15:19 Incision and Drainage Incision and Drainage Incision and drainage is a surgical procedure to open and drain a fluid-filled sac. The sac may be filled with pus, mucus, or blood. Examples of fluid-filled sacs that may need surgical drainage include cysts, skin infections (abscesses), and red lumps that develop from a ruptured cyst or a small abscess (boils). You may need this procedure if the affected area is large, painful, infected, or not healing well. Tell a health care provider about: Any allergies you have. All medicines you are taking, including vitamins, herbs, eye drops, creams, and jrhk-bno-lupjvtg medicines. Any problems you or family members have had with anesthetic medicines. Any blood disorders you have or have had. Any surgeries you have had. Any medical conditions you have or have had. Whether you are or may be . What are the risks? Generally, this is a safe procedure. However, problems may occur, including: Infection. Bleeding. Allergic reactions to medicines. Scarring. The cyst or abscess returns. Damage to nerves or vessels. What happens before the procedure? Medicine Ask your health care provider about: Changing or stopping your regular medicines. This is especially important if you are taking diabetes medicines or blood thinners. Taking medicines such as aspirin and ibuprofen. These medicines can thin your blood. Do not take these medicines unless your health care provider tells you to take them. Taking ghqs-oni-zzyzxza medicines, vitamins, herbs, and supplements. Tests You may have an exam or testing. These may include: Ultrasound or other imaging tests to see how large or deep the fluid-filled sac is. Blood tests to check for infection. General instructions Follow instructions from your health care provider about eating or drinking restrictions. Plan to have someone take you home from the hospital or clinic. Ask your health care provider whether a responsible adult should care for you for at least 24 hours after you leave the hospital or clinic. This is important. You may get a tetanus shot. Ask your health care provider: ?How your surgery site will be marked or identified. ?What steps will be taken to help prevent infection. These may include: ?Removing hair at the surgery site. ?Washing skin with a germ-killing soap. ?Receiving antibiotic medicine. What happens during the procedure? An IV may be inserted into one of your veins. You will be given one or more of the following: ?A medicine to help you relax (sedative). ?A medicine to numb the area (local anesthetic). ?A medicine to make you fall asleep (general anesthetic). An incision will be made in the top of the fluid-filled sac. Pus, blood, and mucus will be squeezed out, and a syringe or tube (drain) may be used to empty more fluid from the sac. Your health care provider will do one of the following. He or she may: ?Leave the drain in place for several weeks to drain more fluid. ?Stitch open the edges of the incision to make a long-term opening for drainage (marsupialization). The inside of the sac may be washed out (irrigated) with a sterile solution and packed with gauze before it is covered with a bandage (dressing). Your health care provider do a culture test of the drainage fluid. The procedure may vary among health care providers and hospitals. What happens after the procedure? Your blood pressure, heart rate, breathing rate, and blood oxygen level will be monitored often until you leave the hospital or clinic. Do not drive for 24 hours if you were given a sedative during your procedure. Summary Incision and drainage is a surgical procedure to open and drain a fluid-filled sac. The sac may be filled with pus, mucus, or blood. Before the procedure, you may be given antibiotic medicine to treat or help prevent infection. During the procedure, an incision will be made in the top of the fluid-filled sac. Pus, blood, and mucus is squeezed out, and a syringe or tube (drain) may be used to empty more fluid from the sac. The inside of the sac may be washed out (irrigated) with a sterile solution and packed with gauze before it is covered with a bandage (dressing). This information is not intended to replace advice given to you by your health care provider. Make sure you discuss any questions you have with your health care provider. Document Released: 10/23/2001 Document Revised: 03/30/2019 Document Reviewed: 03/30/2019 [employer] Patient Education 2020 [employer]. 06/27/2021 12:15:16 Cellulitis Cellulitis Cellulitis is an infection of the skin and the tissue beneath it. The infected area is usually red and tender. Cellulitis occurs most often in the arms and lower legs. CAUSES Cellulitis is caused by bacteria that enter the skin through cracks or cuts in the skin. The most common types of bacteria that cause cellulitis are Staphylococcus and Streptococcus. SYMPTOMS Redness and warmth. Swelling. Tenderness or pain. Fever. DIAGNOSIS Your caregiver can usually determine what is wrong based on a physical exam. Blood tests may also be done. TREATMENT Treatment usually involves taking an antibiotic medicine. HOME CARE INSTRUCTIONS Take your antibiotics as directed. Finish them even if you start to feel better. Keep the infected arm or leg elevated to reduce swelling. Apply a warm cloth to the affected area up to 4 times per day to relieve pain. Only take uzpg-rae-onqvrfk or prescription medicines for pain, discomfort, or fever as directed by your caregiver. Keep all follow-up appointments as directed by your caregiver. SEEK MEDICAL CARE IF: You notice red streaks coming from the infected area. Your red area gets larger or turns dark in color. Your bone or joint underneath the infected area becomes painful after the skin has healed. Your infection returns in the same area or another area. You notice a swollen bump in the infected area. You develop new symptoms. SEEK IMMEDIATE MEDICAL CARE IF: You have a fever. You feel very sleepy. You develop vomiting or diarrhea. You have a general ill feeling (malaise) with muscle aches and pains. MAKE SURE YOU: Understand these instructions. Will watch your condition. Will get help right away if you are not doing well or get worse. Document Released: 02/06/2006 Document Revised: 10/28/2012 Document Reviewed: 07/14/2012 ExitCare Patient Information [address] [facility]. This information is not intended to replace advice given to you by your health care provider. Make sure you discuss any questions you have with your health care provider. Follow Up Care 06/24/2021 13:57:22 With:MARTHA SCOTT MD, Surgery, Surgery Address: [address] [facility] [place] [address] [phone] When:07/03/2021 15:00:00 Comments:Follow-up as scheduled With:Martinez Oh Address: [address] [place], [place] [id number] When:06/30/2021 11:00:00 Comments:Bring the CPAP or the chip with you. With:OPAL MEDINA MD Address: [address] [place] [phone] When:07/04/2021 11:00:00 Comments:This is your post-hospital follow-up appointment. This was their first available appointment. [facility] 06-24-2021 Evaluation + Plan note Extrac rolf from: Title:History and Physical Author:MARLEEN AMES APPLICATION INTEGRATION SPECIALIST-PACKAGING TECHNICIAN Date:06/24/21 1. Cellulitis of left thigh 2. Abscess of left thigh 3. COPD without exacerbation 4. RALPH treated with BiPAP 5. History of hypertension 6. Obesity 7. Tobacco use Mr. Rocha is a 61-year-old male that presents with fever, leukocytosis, and cellulitis of the left medial thigh with self-draining abscess with purulent drainage and approximately 7 cm area of induration that is very tender to touch. [facility] does not have surgical coverage over the weekend so I have requested that the ED physician obtain CT of the left thigh to evaluate need for surgical intervention. If the patient does indeed have abscess that will require I&D then he will need transferred to [facility] for surgical consultation, if not he will be admitted at [facility]. Will ask staff to martha area of demarcation so we can monitor closely for expansion of the cellulitis. Warm moist compresses, pain control. Will obtain blood cultures and check lactate. Will initiate broad spectrum antibiotics and treat with IV vancomycin and ceftriaxone. COPD not in acute exacerbation. PRN bronchodilators for symptom management. RALPH treated with BIPAP. Continue nocturnal BIPAP as at home. History of hypertension, stable. Will consider resuming thiazide diuretic in the a.m. Obesity complicates all facets of his care. The patient is attempting to modify diet and exercise with goal to lose weight so that he can qualify for total knee arthroplasty in the future. Reinforcement provided. Tobacco use. Patient is weaning himself off of cigarettes. He went from 1 PPD (40 pack year history) to 1 cigarette per day. He was counseled for greater then 3 minutes on smoking cessation, nicotine replacement therapy offered. He has declined at this time. DVT prophylaxis: SCDS. CODE STATUS: FULL CODE. The plan of care was discussed with the patient, questions answered, and he is amenable to the plan. Case was discussed with my collaborating physician Dr. Brandon Abraham. This dictation was performed using voice recognition software and may include grammatical and/or spelling errors. Future Appointments Appointment Date:07/03/2021 03:00:00 PM Scheduled Provider:MARTHA SCOTT MD Location:[facility] Appointment Type: OV Follow Up [facility] 12-04-2021 History of Present illness Narrative* Patient is a 61-year-old male presents today with known osteoarthritis of both knees. He is here today for bilateral injections. States the pain is 7 out of 10. Last injection was 3 months ago and only lasted a couple of weeks. He is completely fed up with his quality of life. He has pain going up and down stairs. He would like to consider joint arthroplasty in the future. His BMI is still over 40. We calculated that he needs to be losing about 43 pounds before he is at a BMI of 40. He will tryto work on this in the interim. We will see him back in 3 months for injections. Discussion: * I discussed the conservative treatment options for severe osteoarthritis of bilateral knee including but not limited to physical therapy, oral NSAIDS, activity and lifestyle modification, and corticosteroid injections. Pt has elected to try a cortisone injection today. I have explained the risk and benefits of an injection including the possibility of joint infection and damage to cartilage. Patient verbalized understanding and wishes to proceed with a intraarticular cortisone injection for bilateral knees. * Procedure * With the patient's informed verbal consent, the bilateral knees were prepped in standard sterile fashion with Chlorhexidine. The skin of each knee was then anesthetized with ethyl chloride spray and cleaned again with Chlorhexidine. The knee was then apirated/injected with a prefilled syringe of 40mg Kenalog + 4 ml Lidocaine using the inferior lateral approach without difficulty. Each knee was injected as a separate procedure. The patient tolerated this well and felt immediate initial relief of symptoms. A bandaid was applied and the patient ambulated out of the clinic on ther own accord without difficulty. Patient was instructed to avoid physical activity for 24-48 hours to prevent the knees from swelling and may ice the knees as tolerated. Patient should contact the office if any signsof infection appear: redness, fever, chills, drainage, swelling or warmth to the knees. Pt understands that the injections can be repeated no sooner than 3 months. * Plan: * Pt can resume activities as tolerated and can follow-up in 3 months, no x-rays needed. All questions were answered. * This note was created using voice recognition software and was not corrected for typographical or grammatical errors. * . [id number] [address] Work Phone: [phone] 930-898906-04-2021 History of Present illness Narrative* Patient here today for bilateral knee OA. He had a cortisone injection 3 months ago which he sustained him till now. He states the pain is getting worse. 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 He denies any instability locking catching or giving way. He would like to cortisone in jections in his knees today. * Discussion: * I discussed the conservative treatment options for severe osteoarthritis of bilateral knee including but not limited to physical therapy, oral NSAIDS, activity and lifestyle modification, and corticosteroid injections. Pt has elected to try a cortisone injection today. I have explained the risk and benefits of an injection including the possibility of joint infection and damage to cartilage. Patient verbalized understanding and wishes to proceed with a cortisone injection for bilateral knees. * Procedure * With the patient's informed verbal consent, the bilateral knees were prepped in standard sterile fashion with Chlorhexidine. The skin of each knee was then anesthetized with ethyl chloride spray and cleaned again with Chlorhexidine. The knee was then injected with a prefilled syringe of 40 mg Kenalog + 4 ml Lidocaine using the inferior lateral approach without difficulty. Each knee was injected as a separate procedure. The patient tolerated this well and felt immediate initial relief of symptoms. A bandaid was applied and the patient ambulated out of the clinic on ther own accord without difficulty. Patient was instructed to avoid physical activity for 24-48 hours to prevent the knees from swelling and may ice the knees as tolerated. Patient should contact the office if any signs of infection appear: redness, fever, chills, drainage, swelling or warmth to the knees. Pt understands that the injections can be repeated no sooner than 3 months. * Plan: * Pt can resume activities as tolerated and can follow-up in 3 months, no x-rays needed. All questions were answered. [id number] [address] Work Phone: [phone] 617-976606-03-2021 History of Present illness Narrative* Patient here today for bilateral knee OA. He had a cortisone injection 3 months ago which he sustained him till now. He states the pain is getting worse. 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 He denies any instability locking catching or giving way. He would like to cortisone in jections in his knees today. * Discussion: * I discussed the conservative treatment options for severe osteoarthritis of bilateral knee including but not limited to physical therapy, oral NSAIDS, activity and lifestyle modification, and corticosteroid injections. Pt has elected to try a cortisone injection today. I have explained the risk and benefits of an injection including the possibility of joint infection and damage to cartilage. Patient verbalized understanding and wishes to proceed with a cortisone injection for bilateral knees. * Procedure * With the patient's informed verbal consent, the bilateral knees were prepped in standard sterile fashion with Chlorhexidine. The skin of each knee was then anesthetized with ethyl chloride spray and cleaned again with Chlorhexidine. The knee was then injected with a prefilled syringe of 40 mg Kenalog + 4 ml Lidocaine using the inferior lateral approach without difficulty. Each knee was injected as a separate procedure. The patient tolerated this well and felt immediate initial relief of symptoms. A bandaid was applied and the patient ambulated out of the clinic on ther own accord without difficulty. Patient was instructed to avoid physical activity for 24-48 hours to prevent the knees from swelling and may ice the knees as tolerated. Patient should contact the office if any signs of infection appear: redness, fever, chills, drainage, swelling or warmth to the knees. Pt understands that the injections can be repeated no sooner than 3 months. * Plan: * Pt can resume activities as tolerated and can follow-up in 3 months, no x-rays needed. All questions were answered. [id number] Work Phone: Evaluation + Plan note Future Appointments Appointment Date:06/22/2022 10:30:00 AM Scheduled Provider: Location:[facility] Appointment Type:CT Knee w/o Contrast Left Future Scheduled Tests Radiology* CT Knee w/o Contrast Left 06/22/22 [facility] Evaluation + Plan note Future Appointments [facility] Evaluation + Plan note Future Appointments Appointment Date:08/24/2022 09:30:00 AM Scheduled Provider: Location:[facility] Appointment Type:CT Knee w/o Contrast Right Future Scheduled Tests Radiology* CT Knee w/o Contrast Right 08/24/22 [facility] Evaluation note* Diagnosis Depression screen- Primary Screening for depression Acute deep vein thrombosis (DVT) of femoral vein of left lower extremity (CMS/HCC) Current moderate episode of major depressive disorder without prior episode (CMS/HCC) Arthritis of both knees documented in this encounter [facility] Work Phone: Evaluation note* Diagnosis Chronic obstructive pulmonary disease, unspecified COPD type (CMS/HCC)- Primary Acute deep vein thrombosis (DVT) of other specified vein of left lower extremity (CMS/HCC) Depression screen Screening for depression Primary hypertension Unspecified essential hypertension Acute deep vein thrombosis (DVT) of femoral vein of left lower extremity (CMS/HCC) Preop examination Unspecified pre-operative examination Current moderate episode of major depressive disorder without prior episode (CMS/HCC) Arthritis of both knees documented in this encounter [facility] Work Phone: Evaluation note* Diagnosis Acute swimmer's ear of left side- Primary Malignant melanoma of face excluding eyelid, nose, lip, and ear (CMS/HCC) Chronic obstructive pulmonary disease, unspecified COPD type (CMS/HCC) Hypercholesterolemia Pure hypercholesterolemia Chronic midline low back pain without sciatica RLS (restless legs syndrome) Restless legs syndrome (RLS) Primary hypertension Unspecified essential hypertension Acute deep vein thrombosis (DVT) of proximal vein of left lower extremity (CMS/HCC) Current moderate episode of major depressive disorder without prior episode ([facility]/HCC) documented in this encounter [facility] Work Phone: Evaluation note* Diagnosis Vasovagal syncope- Primary Syncope and collapse documented in this encounter [facility] Work Phone: Evaluation note* Diagnosis Vasovagal syncope Syncope and collapse documented in this encounter [facility] Work Phone: Evaluation note* Diagnosis Vasovagal syncope Syncope and collapse documented in this encounter [facility] Work Phone: Evaluation note* Diagnosis Vasovagal syncope Syncope and collapse Syncope and collapse documented in this encounter [facility] Work Phone: Evaluation note* Diagnosis Acute deep vein thrombosis (DVT) of other specified vein of left lower extremity- Primary Arthritis of both knees Primary hypertension Unspecified essential hypertension Acute deep vein thrombosis (DVT) of femoral vein of left lower extremity (Multi) Depression screen- Primary Screening for depression Acute deep vein thrombosis (DVT) of femoral vein of left lower extremity (Multi) Current moderate episode of major depressive disorder without prior episode (Multi) Arthritis of both knees Primary hypertension- Primary Unspecified essential hypertension Malignant melanoma of face excluding eyelid, nose, lip, and ear (Multi) Chronic obstructive pulmonary disease, unspecified COPD type (Multi) Acute deep vein thrombosis (DVT) of other specified vein of left lower extremity Depression screen Screening for depression Acute deep vein thrombosis (DVT) of femoral vein of left lower extremity (Multi) Current moderate episode of major depressive disorder without prior episode (Multi) Arthritis of both knees Chronic obstructive pulmonary disease, unspecified COPD type (Multi)- Primary Acute deep vein thrombosis (DVT) of other specified vein of left lower extremity Depression screen Screening for depression Primary hypertension Unspecified essential hypertension Acute deep vein thrombosis (DVT) of femoral vein of left lower extremity (Multi) Preop examination Unspecified pre-operative examination Current moderate episode of major depressive disorder without prior episode (Multi) Arthritis of both knees Annual physical exam- Primary Routine general medical examination at a health care facility Chronic obstructive pulmonary disease, unspecified COPD type (Multi) Acute deep vein thrombosis (DVT) of proximal vein of left lower extremity (Multi) Primary hypertension Unspecified essential hypertension Needs flu shot Need for prophylactic vaccination and inoculation against influenza Acute swimmer's ear of left side- Primary Malignant melanoma of face excluding eyelid, nose, lip, and ear (Multi) Chronic obstructive pulmonary disease, unspecified COPD type (Multi) Hypercholesterolemia Pure hypercholesterolemia Chronic midline low back pain without sciatica RLS (restless legs syndrome) Restless legs syndrome (RLS) Primary hypertension Unspecified essential hypertension Acute deep vein thrombosis (DVT) of proximal vein of left lower extremity (Multi) Current moderate episode of major depressive disorder without prior episode (Multi) Vasovagal syncope- Primary Syncope and collapse Vasovagal syncope- Primary Syncope and collapse RLS (restless legs syndrome) Restless legs syndrome (RLS) Syncope and collapse Cigarette nicotine dependence with nicotine-induced disorder Primary hypertension Unspecified essential hypertension Vasovagal syncope- Primary Syncope and collapse Chronic obstructive pulmonary disease, unspecified COPD type (Multi) Acute deep vein thrombosis (DVT) of other specified vein of left lower extremity Hypercholesterolemia Pure hypercholesterolemia RLS (restless legs syndrome) Restless legs syndrome (RLS) Primary hypertension Unspecified essential hypertension Depression screen Screening for depression Malignant melanoma, unspecified site (Multi) Malignant neoplasm of skin of face Other malignant neoplasm of skin of other and unspecified parts of face Current moderate episode of major depressive disorder without prior episode (Multi) Acute right-sided low back pain with right-sided sciatica Cigarette nicotine dependence with nicotine-induced disorder Annual physical exam- Primary Routine general medical examination at a health care facility Flu vaccine need Chronic obstructive pulmonary disease, unspecified COPD type (Multi) Acute deep vein thrombosis (DVT) of other specified vein of left lower extremity Hypercholesterolemia Pure hypercholesterolemia RLS (restless legs syndrome) Restless legs syndrome (RLS) Primary hypertension Unspecified essential hypertension Depression screen Screening for depression Mixed hyperlipidemia Vasovagal syncope Syncope and collapse Vitamin D deficiency Chronic right-sided low back pain with right-sided sciatica RALPH (obstructive sleep apnea) Obstructive sleep apnea (adult) (pediatric) Cigarette nicotine dependence with nicotine-induced disorder documented in this encounter [facility] Work Phone: Evaluation note* Diagnosis Vasovagal syncope- Primary Syncope and collapse Chronic obstructive pulmonary disease, unspecified COPD type (Multi) Acute deep vein thrombosis (DVT) of other specified vein of left lower extremity (Multi) Hypercholesterolemia Pure hypercholesterolemia RLS (restless legs syndrome) Restless legs syndrome (RLS) Primary hypertension Unspecified essential hypertension Depression screen Screening for depression Malignant melanoma, unspecified site (Multi) Malignant neoplasm of skin of face Other malignant neoplasm of skin of other and unspecified parts of face Current moderate episode of major depressive disorder without prior episode (Multi) Acute right-sided low back pain with right-sided sciatica Cigarette nicotine dependence with nicotine-induced disorder documented in this encounter [facility] Work Phone: Evaluation note* Diagnosis Acute deep vein thrombosis (DVT) of other specified vein of left lower extremity (CMS/HCC)- Primary Arthritis of both knees Primary hypertension Unspecified essential hypertension Acute deep vein thrombosis (DVT) of femoral vein of left lower extremity (CMS/HCC) documented in this encounter [facility] Work Phone: Evaluation note* Diagnosis Onset Date Resolution Status Admit Date Asthma acute November 30 11:00am GERD (gastroesophageal reflu x disease) acute November 30, 2024 11:00am Rheumatoid arthritis acute November 30, 2024 11:00am Establishing care with new doctor, encounter for noneactive November 30, 2024 11:00am Essential hypertension noneactive Ju 2024 11:00am History of skin cancer noneactive Ju ly 2024 11:00am [facility] Work Phone: History of Present illness Narrative* Patient is here today for routine follow-up for hypertension and asthma. * He has had both knees injected through Dr. Guardado and says he is not a candidate for knee replacement unless he loses about 100 pounds. * He feels well other than the knees and has no other complaints [facility] Work Phone: History of Present illness NarrativePatient presents today for bilateral knee cortisone injections for an underlying osteoarthritis. [id number] Work Phone: History of Present illness Narrative* patient presents for follow up of sleep. * He has a history of severe sleep apnea with AHI of 56. He was placed on Auto bipap * He reports doing well with bipap and is waiting for new supplies. * Current mask FFM * Current [employer] * RALPH chip read:usage * usage 7 hours 27 minutes * max IPAP 16 CM H2O * max EPAP 8 CM H2O * AHI =7.2 * Mask leak 95th percentile is 23.3 * as per last note * . Pressure setting was adjusted at last OV to Max IPAP 16 cm H2O and Min EPAP of 8 cm H2O without aback up rate. * He reports being well rested with BIPAP and "lost without it" * Compliance reviewed and he is compliant with usage and BiPAP continues to be medically necessary for him. * Current mask FFM * Current [employer] * RALPH chip read:usage * usage 5 hours 47 minutes * Max IPAP 16 cm H2 O * Min EPEP 8 cm H2 O * AHI =6.1 , improved from previous review * central apneas 2.8 , improved from previous review * auto-bipap with no back up rate. * He is well rested and not sleepy during the day. * However there are still several nights with events and this appears related to mask leak - will change the settings from 5-25 to max ipap 16, and min epap of 8 with pressure support of 4cm. * We may need him to try another FFM like the F30 or sharon view if this is not working. * See impressions. At this time, I do not think a backup rate is needed. The chip only reported a lowamount of centrals but will monitor this. [id number] Work Phone: History of Present illness Narrative* Patient is a 61-year-old gentleman with known advanced underlying osteoarthritis of his bilateral knees, is morbidly obese with a BMI of 42 * Injection of the bilateral knees * Risk, benefits, alternatives, bleeding risk, infection risk and allergic reaction risk were discussed with the patient. Verbal consent was obtained prior to the procedure. * Preparation: chlorhexidine was used to prep the area. INR was not reviewed prior to the start of the procedure. ethyl chloride spray was used as a topical anesthetic. * Procedure Note: Using sterile technique, the aspiration/injection needle was then directed from a/an lateral and anterior aspect. A 20-gauge was used to inject 4 mL of 1% Lidocaine and 1 mL of 40mg/mL triamcinolone. A bandage was applied. * Post-Procedure: the patient tolerated the procedure well. * Complications: None. * Follow-up in the office as needed * This note was created using voice recognition software and was not corrected for typographical or grammatical errors.. [id number] Work Phone: History of Present illness Narrative* She is here for routine follow-up on his hypertension and COPD. * He continuously has irritation in the scrotum and perineum with recurrent sebaceous cysts which often burst and drained. 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 When it gets out of control he does not go see a surgeon for drainage when necessary. * Currently he is finalizing a mortgage today with his new fianc Sarah Coronado. [place] Jan [place]. He is worried about the cruise in his knees because he cannot get steroid injections until after the cruise and he has difficulty walking because of the pain. He wants to know if he can have just enough tramadol to get through the actual cruise which is 6 days long. I have told him I can give him a 7-day supply so that he can take 1 on the day of the wedding also in case he needs it because of the activities and festivities. * The state database was reviewed and it shows that he has not had any narcotics in the last 2 years therefore I did give him a 7-day supply [facility] Work Phone: History of Present illness Narrative* Patient is here for follow-up on hypertension and preop clearance. * Patient is scheduled to have a posterior lumbar interbody fusion and decompression of L4-5 on June 14. Patient is later scheduled to have knee replacements in June and August. He believes the June knee replacement will have to be pushed back but is hoping that the September 04 knee replacement can go ahead. * Patient will need referrals for both of these surgeons which will be done at [facility]. * Dr Gricelda Oliver for his knees and Dr Eliseo Braxton for his spine. * Both are at : * [address] [facility] [address] [place] [id number] * [phone] * fax [phone] [facility] Work Phone: History of Present illness Narrative* Patient is here for follow-up on hypertension and preop clearance. * Patient is scheduled to have a posterior lumbar interbody fusion and decompression of L4-5 on June 14. Patient is later scheduled to have knee replacements in June and August. He believes the June knee replacement will have to be pushed back but is hoping that the September 04 knee replacement can go ahead. * Patient will need referrals for both of these surgeons which will be done at [facility]. * Dr Gricelda Oliver for his knees and Dr Eliseo Braxton for his spine. * [facility] at : * [address] [facility] [address] * [phone] * fax [phone] [facility] Work Phone: History of Present illness Narrative* Pt is here for preop clearance for a left total knee replacement. * He has had preop clearance with an EKG, CXR and blood work at [facility] but noneof it is available to myself today and I have not reviewed it. [facility] Work Phone: Hospital course Narrative No data available for this section [facility] Hospital Discharge instructions No data available for this section [facility] Progress note No data available for this section [facility] Reason for referral (narrative)No reason for referral [facility] Work [facility]: Summary Purpose Family History No Family History Records Found Sibling Name Dates Details Family history of obesity(V1 8.19, Z83.49) Status:Active Mother Name Dates Details Family history of lung cance r(V16.1, Z80.1) Status:Active Sibling Name Dates Details Family history of obesity(V1 8.19, Z83.49) Status:Active Mother Name Dates Details Family history of lung cance r(V16.1, Z80.1) Status:Active Sibling Name Dates Details Family history of obesity(V1 8.19, Z83.49) Status:Active Mother Name Dates Details Family history of lung cance r(V16.1, Z80.1) Status:Active Sibling Name Dates Details Family history of obesity(V1 8.19, Z83.49) Status:Active Mother Name Dates Details Family history of lung cance r(V16.1, Z80.1) Status:Active Sibling Name Dates Details Family history of obesity(V1 8.19, Z83.49) Status:Active Mother Name Dates Details Family history of lung cance r(V16.1, Z80.1) Status:Active Sibling Name Dates Details Family history of obesity(V1 8.19, Z83.49) Status:Active Mother Name Dates Details Family history of lung cance r(V16.1, Z80.1) Status:Active Sibling Name Dates Details Family history of obesity(V1 8.19, Z83.49) Status:Active Mother Name Dates Details Family history of lung cance r(V16.1, Z80.1) Status:Active Unknown Family Member Name Dates Details Family history of lung cance r: Mother(V16.1, Z80.1) Status:Active Family history of obesity: S ibling(V18.19, Z83.49) Status:Active Unknown Family Member Name Dates Details Family history of lung cance r: Mother(V16.1, Z80.1) Status:Active Family history of obesity: S ibling(V18.19, Z83.49) Status:Active Unknown Family Member Name Dates Details Family history of lung cance r: Mother(V16.1, Z80.1) Status:Active Family history of obesity: S ibling(V18.19, Z83.49) Status:Active Unknown Family Member Name Dates Details Family history of lung cance r: Mother(V16.1, Z80.1) Status:Active Family history of obesity: S ibling(V18.19, Z83.49) Status:Active Unknown Family Member Name Dates Details Family history of lung cance r: Mother(V16.1, Z80.1) Status:Active Family history of obesity: S ibling(V18.19, Z83.49) Status:Active Unknown Family Member Name Dates Details Family history of lung cance r: Mother(V16.1, Z80.1) Status:Active Family history of obesity: S ibling(V18.19, Z83.49) Status:Active Unknown Family Member Name Dates Details Family history of lung cance r: Mother(V16.1, Z80.1) Status:Active Family history of obesity: S ibling(V18.19, Z83.49) Status:Active Unknown Family Member Name Dates Details Family history of lung cance r: Mother(V16.1, Z80.1) Status:Active Family history of obesity: S ibling(V18.19, Z83.49) Status:Active Unknown Family Member Name Dates Details Family history of lung cance r: Mother(V16.1, Z80.1) Status:Active Family history of obesity: S ibling(V18.19, Z83.49) Status:Active Unknown Family Member Name Dates Details Family history of lung cance r: Mother(V16.1, Z80.1) Status:Active Family history of obesity: S ibling(V18.19, Z83.49) Status:Active Unknown Family Member Name Dates Details Family history of lung cance r: Mother(V16.1, Z80.1) Status:Active Family history of obesity: S ibling(V18.19, Z83.49) Status:Active Unknown Family Member Name Dates Details Family history of lung cance r: Mother(V16.1, Z80.1) Status:Active Family history of obesity: S ibling(V18.19, Z83.49) Status:Active Unknown Family Member Name Dates Details Family history of lung cance r: Mother(V16.1, Z80.1) Status:Active Family history of obesity: S ibling(V18.19, Z83.49) Status:Active Unknown Family Member Name Dates Details Family history of lung cance r: Mother(V16.1, Z80.1) Status:Active Family history of obesity: S ibling(V18.19, Z83.49) Status:Active Unknown Family Member Name Dates Details Family history of lung cance r: Mother(V16.1, Z80.1) Status:Active Family history of obesity: S ibling(V18.19, Z83.49) Status:Active Unknown Family Member Name Dates Details Family history of lung cance r: Mother(V16.1, Z80.1) Status:Active Family history of obesity: S ibling(V18.19, Z83.49) Status:Active Unknown Family Member Name Dates Details Family history of lung cance r: Mother(V16.1, Z80.1) Status:Active Family history of obesity: S ibling(V18.19, Z83.49) Status:Active Unknown Family Member Name Dates Details Family history of lung cance r: Mother(V16.1, Z80.1) Status:Active Family history of obesity: S ibling(V18.19, Z83.49) Status:Active Unknown Family Member Name Dates Details Family history of lung cance r: Mother(V16.1, Z80.1) Status:Active Family history of obesity: S ibling(V18.19, Z83.49) Status:Active Unknown Family Member Name Dates Details Family history of lung cance r: Mother(V16.1, Z80.1) Status:Active Family history of obesity: S ibling(V18.19, Z83.49) Status:Active Relationship Condition Age at Onset Recorded Date/T leandro mother Malignant neoplasm of lung Unknown Depression Unknown Asthma Unknown Anxiety Unknown Arthritis Unknown Hypertension Unknown Hyperlipidemia Unknown Advance Directives No Advanced Directives Records FoundNo Advanced Directives Records FoundNo Advanced Directives Records FoundNo Advanced Directives Records FoundNo Advanced Directives Records FoundNo Advanced Directives Records FoundNo Advanced Directives Records FoundNo Advanced Directives Records FoundNo Advanced Directives Records FoundNo Advanced Directives Records Found Procedure Findings Note Post Operative Note: PreOp D iagnosis: scrotal abscess Post-Procedure Diagnosis: Same Procedure: 1. Excision of an infected sebaceous cyst right igor scrotum, drainage of a right igor scrotal hematoma 2. 3. 4. 5. Surgeon: tracy Resident/Fellow/Other [place] Decorator: none Anesthesia: gen Estimated Blood Loss (mL): none Specimen: yes Findings: see op report Signature/Cosignature/Attestation: Note Completion: Attending AttestationI performed the procedure without a resident Electronic Signatures: Monica Earl) (Signed 06-Oct-2019 15:53) Authored: Post Operative Note, Signature/Cosignature/Attestation Last Updated: 06-Oct-2019 15:53 by Monica Earl) Chief Complaint FUV bilateral knee injections. MDotsonFUV bilateral knee injections. MDotson4 month f/u for Asthma and HTN AMDFUV bilateral knee injections. MDpatient is here for sleep /chip readFUV Bilateral knee injectionFUV Bilateral knee injections* pt is here for 3 mon f/u for HTN and COPD management. * BN//AMD INJECTIONINJECTION* pt is here for 4 mon for HTN management. * BN//AMD * pt is here for f/u on labs and HTN management. * BN//AMD * pt is here for f/u on labs and HTN management. * BN//AMD * pt is here for preop clearance and HTN management. * BN//AMD INJECTION Reason for Referral Specialty Diagnoses / Procedures Referred By Contac t Referred To Contact Cardiology Diagnoses Vasovagal syncope Syncope and collapse Procedures Vascular US carotid artery duplex bilateral Opal Medina MD [address] [facility], [address] [address] Referral ID Status Reason Start Date Expiration Date Visits Requested Visits Authorized [id number] Authorized Perform Procedure 08/26/2023 08/25/2024 1 1 Specialty Diagnoses / Procedures Referred By Contac t Referred To Contact Radiology Diagnoses Vasovagal syncope Procedures CT head wo IV contrast Opal Medina MD [address] [facility], [facility] [address] [place] [address] Referral ID Status Reason Start Date Expiration Date Visits Requested Visits Authorized [id number] Authorized Perform Procedure 08/26/2023 08/25/2024 1 1 Specialty Diagnoses / Procedures Referred By Contac t Referred To Contact Cardiology Diagnoses Vasovagal syncope Procedures Transthoracic Echo Limited RI ECHO TRANSTHORC R-T 2D W/WO M-MODE REC F-UP/LMTD RI DOP ECHOCARD COLOR FLOW VELOCITY MAPPING RI DOP ECHOCARD PULSE WAVE W/SPECTRAL F-UP/LMTD STD Opal Medina MD [address] [facility], [address] [address] Referral ID Status Reason Start Date Expiration Date Visits Requested Visits Authorized [id number] Pending Review Perform Procedure 07/31/2023 07/30/2024 1 1 Chief Complaint and Reason for Visit Chief Complaint Admit Date EST NEW PT - PPWK SENT November 30, 2024 1 1:00am Reason for Visit Admit Date Asthma November 30, 2024 11:0 0am GERD (gastroesophageal reflux disease) J suzette 2024 11:00am Rheumatoid arthritis November 30, 2024 11: 00am Establishing care with new doctorenrique for November 30, 2024 11:00am Essential hypertension November 30, 2024 1 1:00am History of skin cancer November 30, 2024 1 1:00am Additional Source Comments (unrecognized sect ion and content) No Status Records FoundNo Status Records FoundNo Status Records FoundNo Status Records FoundNo Status Records FoundNo Status Records FoundNo Status Records FoundNo Status Records FoundNo Status Records FoundNo Status Records Found INFORMATION SOURCE (unrecogn ized section and content) DATE CREATED AUTHOR 07/17/2018 [facility] DATE CREATED AUTHOR AUTHOR'S ORGANIZ ATION 07/25/2018 [facility] DATE CREATED AUTHOR AUTHOR'S ORGANIZ ATION 09/29/2018 [facility] DATE CREATED AUTHOR AUTHOR'S ORGANIZ ATION 10/19/2019 [facility] DATE CREATED AUTHOR AUTHOR'S ORGANIZ ATION 07/06/2022 [facility] DATE CREATED AUTHOR AUTHOR'S ORGANIZ ATION 07/06/2022 [employer] DATE CREATED AUTHOR AUTHOR'S ORGANIZ ATION 02/20/2023 [facility] DATE CREATED AUTHOR AUTHOR'S ORGANIZ ATION 11/03/2023 [facility] DATE CREATED AUTHOR AUTHOR'S ORGANIZ ATION 11/28/2024 [facility] DATE CREATED AUTHOR AUTHOR'S ORGANIZ ATION 12/01/2024 [facility] Care Team (unrecognized sect ion and content) Care Team Personnel Name: OPAL MEDINA MD Member Role: Primary Care Physician Address: Address: [address] [place] [address] Care Team Related Persons Name: SARAH ROCHA Name: REBEKAH ROY Care Team Personnel Name: OPAL MEDINA MD Member Role: Primary Care Physician Address: Address: [address] [place] [address] Care Team Related Persons Name: SARAH ROCHA Name: REBEKAH ROY Care Team Personnel Name: OPAL MEDINA MD Member Role: Primary Care Physician Address: Address: [address] [place] [address] , [address] Care Team Related Persons Name: SARAH ROCHA Name: REBEKAH ROY Care Teams (unrecognized sec tion and content) Recruiting Intern Relationship Specialty Start Date End Date Opal Medina MD [address] [facility], [place] [address] [place] [address] PCP - General 02/22/18 Recruiting Intern Relationship Specialty Start Date End Date Opal Medina MD [address] [facility], [facility] [address] [place] [address] PCP - General 02/22/18 Recruiting Intern Relationship Specialty Start Date End Date Opal Medina MD [address] [facility], [address] [place] [address] PCP - General 02/22/18 Recruiting Intern Relationship Specialty Start Date End Date Opal Medina MD [address] [facility], [address] [address] PCP - General 02/22/18 Recruiting Intern Relationship Specialty Start Date End Date Opal Medina MD [address] [facility], [address] [place] [address] PCP - General 02/22/18 Recruiting Intern Relationship Specialty Start Date End Date Opal Medina MD [address] [facility], [address] [place] [address] PCP - General 02/22/18 Opal Medina MD [address] [facility], [address] [place] [address] PCP - MMO ACO PCP 08/12/23 Recruiting Intern Relationship Specialty Start Date End Date Opal Medina MD [address] [facility], [address] [place] [address] PCP - General 02/22/18 Opal Medina MD [address] [facility], [address] [address] PCP - MMO ACO PCP 08/12/23 Recruiting Intern Relationship Specialty Start Date End Date Opal Medina MD [address] [facility], [address] [address] PCP - General 02/22/18 Opal Medina MD [address] [facility], [address] [address] PCP - MMO ACO PCP 08/12/23 Recruiting Intern Relationship Specialty Start Date End Date Opal Medina MD [address] [facility], [address] [address] PCP - General 02/22/18 Team Status: Inactive Member Role/Relationship Status Dates Dr. Pamela Hernandez MD Attending Provider Active Start: November 30, 2024 End: November 30, 2024 Reason for Visit (unrecogniz ed section and content) Specialty Diagnoses / Procedures Referred By Contac t Referred To Contact Cardiology Diagnoses Vasovagal syncope Procedures Transthoracic Echo Limited RI ECHO TRANSTHORC R-T 2D W/WO M-MODE REC F-UP/LMTD RI DOP ECHOCARD COLOR FLOW VELOCITY MAPPING RI DOP ECHOCARD PULSE WAVE W/SPECTRAL F-UP/LMTD STD Opal Medina MD [address] [facility], [address] [address] Referral ID Status Reason Start Date Expiration Date Visits Requested Visits Authorized [id number] Authorized Perform Procedure 07/31/2023 07/30/2024 1 1 Specialty Diagnoses / Procedures Referred By Contac t Referred To Contact Radiology Diagnoses Vasovagal syncope Procedures CT head wo IV contrast Opal Medina MD [address] [facility], [facility] [address] [place] [address] Referral ID Status Reason Start Date Expiration Date Visits Requested Visits Authorized [id number] Authorized Perform Procedure 08/26/2023 08/25/2024 1 1 Specialty Diagnoses / Procedures Referred By Contac t Referred To Contact Cardiology Diagnoses Vasovagal syncope Syncope and collapse Procedures Vascular US carotid artery duplex bilateral Opal Medina MD [address] [facility], [facility] [address] [place] [address] Referral ID Status Reason Start Date Expiration Date Visits Requested Visits Authorized [id number] Authorized Perform Procedure 08/26/2023 08/25/2024 1 1 Goals (unrecognized section and content) Goals may be documented in a n alternate section FOR RECORDS PERTAINING TO PATIENTS WHO ARE OR HAVE BEEN ENROLLED IN A CHEMICAL DEPENDENCY/SUBSTANCEABUSE PROGRAM, SOME INFORMATION MAY BE OMITTED. This clinical summary was aggregated from multiple sources. Caution should be exercised in using it in the provision of clinical care. This summary normalizes information from multiple sources, and as a consequence, information in this document may materially change the coding, format and clinical context of patient data. In addition, data may be omitted in some cases. CLINICAL DECISIONS SHOULD BE BASED ON THE PRIMARY CLINICAL RECORDS. [facility] [employer] provides no warranty or guarantee of the accuracy or completeness of information in this document.
== END | disposition home or self-care (01) ==
LOC: BIMLAB 09:50
PROVIDERS: PCP Internal Medicine; Referring Provider Internal Medicine; Visit Provider Internal Medicine
DX: I10 Essential (primary) hypertension (principal); E55.9 Vitamin D deficiency, unspecified; Z13.6 Encounter for screening for cardiovascular disorders
CPT/HCPCS: 36415; 80053; 80061; 82306; 85025

== ENCOUNTER 2024-12-09 10:18 | Emergency (ER) | payer MEDICARE, SELFPAY ==
[2024-12-09 10:18] VITALS: BP 123/75; PULSE 83; RESP 19; TEMP 36.2; O2SAT 95; BMI 40.9
--- NOTE | 2024-12-09 10:41 | US_ITS ---
PROCEDURE: TESTICULAR WITH ARTERIAL FLOW 12/09/2024 REASON FOR EXAM: SCROTAL SWELLING, RIGHT TECHNIQUE: TESTICULAR WITH ARTERIAL FLOW COMPARISON: None FINDINGS: RIGHT testicle: 5.2 cm x 4.6 cm x 3.1 cm Right epididymis: 0.9 cm x 1.2 cm x 0.9 cm there is evidence of a epididymal cyst measuring 4 mm x 3 mm x 3 mm. LEFT testicle: 4.9 cm x 3.7 cm x 3 cm Left epididymis: 0.5 cm x 1 cm x 0.7 cm there is increased vascularity of the left epididymis suggestive of possible epididymitis. Other findings: In the right scrotal sac adjacent to the testicle, there is hyperemic tissue with scrotal thickening. There is evidence of a complex collection of fluid within the scrotal sac. This may represent an infected hydrocele assessed. US/Testicular with Arterial Flow IMPRESSION: No evidence of torsion. Inflammatory fluid seen in the right scrotal sac as described. Reading Location: [facility]
--- NOTE | 2024-12-09 10:42 | EX.ED.DYSGE1 ---
HPI History of Present Illness Chief Complaint: Wound Narrative Narrative: 64-year-old male, nondiabetic, presents with 1 week of right-sided scrotal pain and swelling. Thinks he has an abscess or cyst in that area. States has been swollen for about a week. He signed up with a new primary care provider, Dr. Hernandez, who suggested that he present to the emergency department for evaluation. He and his are concerned because the patient does take Eliquis for DVT, and while he has noticed intermittent bleeding over the last week, he has not had drainage of pus from the area until today. States he has had scrotal abscesses in the same area previously. Quite frankly, he states he is here for antibiotics to help shrink the cyst. [facility] Medical History Hearing problem DVT (deep venous thrombosis) Wears dentures Wears glasses Cancer History of steroid therapy Arthritis High cholesterol Easy bruising Restless legs Back pain Smoker Sleep apnea Shortness of breath on exertion COPD (chronic obstructive pulmonary disease) Leg cramps History of pain when walking History of edema Hypertension Home Medications ?Medication ?Instructions ?Recorded ?Last Taken ?Type albuterol sulfate 90 mcg/actuation 1 puff inhalation Q6H PRN COPD 05/31/22 Unknown History aerosol inhaler aspirin 325 mg tablet 325 mg PO DAILY SUPPLMENT 05/31/22 Unknown History cholecalciferol (vitamin D3) 100 1,000 unit PO DAILY SUPPLEMENT 05/31/22 Unknown History mcg (4,000 unit) capsule hydrochlorothiazide 50 mg tablet 50 mg PO DAILY BP 05/31/22 Unknown History multivitamin with minerals-folic 2 tab PO DAILY SUPPLEMENT 05/31/22 Unknown History acid 200 mcg chewable tablet (Men's Daily Gummies) apixaban 5 mg tablet 5 mg PO BID 11/30/24 Unknown History cyclobenzaprine 5 mg tablet 5 mg PO TID PRN muscle spasm #30 11/30/24 Unknown Rx tabs duloxetine 30 mg capsule,delayed 30 mg PO QDAY #30 caps 11/30/24 Unknown Rx release (Cymbalta) sertraline 100 mg tablet (Zoloft) 100 mg PO QDAY 11/30/24 Unknown History sulfamethoxazole 800 1 tab PO BID #20 tabs 12/09/24 Unknown Rx mg-trimethoprim 160 mg tablet (Bactrim DS) Allergy/AdvReac Type Severity Reaction Status Date / Time No Known Allergies Allergy Verified 11/30/24 11:09 Family History Mother Lung cancer Depression Asthma Anxiety Arthritis Hypertension Hyperlipidemia Surgical History History of bilateral knee replacement Hx of colonoscopy Hx of hernia repair Social History adopted: No household members: spouse current occupational status: retired and disabled 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 Developed drainage of pus today. No fevers or chills, no nausea or vomiting, no other symptoms. EXAM Physical Exam Narrative Exam Narrative: Afebrile. Vital signs noted. Nontoxic-appearing. Focused chaperoned examination of the scrotum does reveal mild swelling with chafed area of skin with minimal amount of bleeding noted on the right upper scrotum. There is indurated tissue. There is scant drainage that is purulent. No true fluctuance, no crepitance. No testicular tenderness. Const Vital Signs: 12/09/24 10:18 Temperature 97.2 F L Temperature Source Temporal Pulse Rate 83 Respiratory Rate 19 H Blood Pressure 123/75 H Blood Pressure Mean 91 Pulse Ox 95 Oxygen Delivery Method Room Air MDM MDM MDM Narrative Medical decision making narrative: Differential diagnosis includes but not limited to scrotal abscess versus hematoma. I have low suspicion for Yair's gangrene or necrotizing fasciitis. History and physical does not support this. I discussed risk benefit of incision and drainage as the patient is on Eliquis. Testicular ultrasound will be obtained prior to incision and drainage if indicated. I reviewed the radiology report of the testicular ultrasound and there is no evidence of torsion. There is inflammatory fluid seen in the right scrotal sac with concern for infected hydrocele. At this point in time, given the fact that he is on Eliquis, and he may have more of an infected hydrocele, while I do not feel that he needs emergent urological consultation, I do feel that incision and drainage should be deferred. He will follow-up with urology in the next few days. He was given his first dose of Bactrim DS here in the emergency department and prescription written for the next 10 days. Strict return instructions were reviewed with the patient. Patient and agreeable to the plan. Disposition is discharged home in stable condition. Radiography Diagnostic Testing: Clinical Impression(s) from Imaging Studies Testicular Ultrasound 12/09/24 10:41 IMPRESSION: No evidence of torsion. Inflammatory fluid seen in the right scrotal sac as described. Reading Location: [id number] Discharge Plan Triage Chief Complaint: Wound ED Provider: Augusto Davis Dx/Rx/DC Orders Clinical Impression: Infected hydrocele, Anticoagulant long-term use Instructions: ED Hydrocele, Type Not Specified Prescriptions: New sulfamethoxazole-trimethoprim [Bactrim DS] 800-160 mg tablet 1 tab PO BID Qty: 20 0RF No Action sertraline [Zoloft] 100 mg tablet 100 mg PO QDAY apixaban 5 mg tablet 5 mg PO BID duloxetine [Cymbalta] 30 mg capsule,delayed release(DR/EC) 30 mg PO QDAY Qty: 30 1RF cyclobenzaprine 5 mg tablet 5 mg PO TID PRN (Reason: muscle spasm) Qty: 30 0RF aspirin 325 mg Tablet 325 mg PO DAILY Patient Comments: STOP 1 WEEK PRIOR TO OR hydrochlorothiazide 50 mg Tablet 50 mg PO DAILY Men's Daily Gummies 200 mcg Tablet,Chewable 2 tab PO DAILY Vitamin D3 100 mcg (4,000 unit) Capsule 1,000 unit PO DAILY albuterol sulfate 90 mcg/actuation Hfa Aerosol Inhaler 1 puff INHALATION Q6H PRN (Reason: COPD) Primary Care Provider: Pamela Hernandez Referrals: Pamela Hernandez MD [Primary Care Provider] - 2 Days for wound check Garry Celeste MD [Med Staff - Active Staff] - 2 Days for wound check Activity Restrictions/Additional Instructions: Follow-up with urology in the next 2 days for a wound check. Return to the emergency department with fever, increased swelling, new or worsening symptoms. Antibiotics as directed. Print Language: Taiwanese Disposition Disposition: Home, Self Care
[2024-12-09 13:01] VITALS: BP 132/76; PULSE 84; RESP 17; TEMP 36.9; O2SAT 100
--- OUTSIDE RECORDS SUMMARY | 2024-12-09 20:09 | XMS RPT_ITS | CCD ---
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 Role Phone OPAL MEDINA Attending Unavailable ADAM, OPAL M Primary Care Unavailable CURT SOUSA Admitting Unavailable CURT SOUSA Attending Unavailable Curt Sousa Attending Unavailable Curt Sousa Referring Unavailable UNKNOWN, PCP [place] Primary Care Unavailable Curt Sousa Admitting Unavailable Stevens, Opal Unavailable Unavailable Shirley Brunson Unavailable Unavailable Stevens, Opal M Unavailable Unavailable Unknown, Referring Provider Unavailable Unav ailable Martinez [place] Unavailable Unavailabl e Curt Sousa Unavailable Unavailable Sidor, Monica A Unavailable Unavailable Stevens, Opal Unavailable Unavailable Stevens, Opal M Unavailable Unavailable Unavailable DR OPAL MEDINA MD Primary Care Physician Snehal vailable Unavailable Unavailable DR OPAL MEDINA MD Primary Care Physician Snehal vailable Geo, Dr. Gricelda Vivar Attending Unav ailable Geo, Dr. Gricelda Vivar Referring Unav ailable Stevens, Dr. Opal Yanez Primary Care Unava ilable Stevens, Dr. Opal Yanez Attending Unava ilable Stevens, Dr. Opal Yanez Primary Care Unava ilable Stevens, Dr. Opal Yanez Referring Unava ilable Stevens, Dr. Opal Yanez Primary Care Unava ilable Stevens, Dr. Opal Yanez Attending Unava ilable Stevens, Dr. Opal Yanez Referring Unava ilable Stevens, Dr. Opal Yanez Primary Care Unava ilable Adam, Dr. Opal Yanez Attending Unava ilable Stevens, Dr. Opal Yanez Referring Unava ilable Stevens, Dr. Opal Yanez Attending Unava ilable Stevens, Dr. Opal Yanez Referring Unava ilable Stevens, Dr. Opal Yanez Primary Care Unava ilable Adam, Dr. Opal Yanez Attending Unava ilable Adam, Dr. Opal Yanez Referring Unava ilable Adam, Dr. Opal Yanez Primary Care Unava ilable Stevens, Dr. Opal Yanez Attending Unava ilable Stevens, Dr. Opal Yanez Referring Unava ilable Adam, Dr. Opal Yanez Primary Care Unava ilable Guardado, Dr. Gricelda Vivar Attending Unav ailable Adam, Dr. Opal Yanez Primary Care Unava ilable Stevens, Dr. Opal Yanez Attending Unava ilable Stevens, Dr. Opal Yanez Referring Unava ilable Stevens, Dr. Opal Yanez Primary Care Unava ilable Stevens, Dr. Opal Yanez Primary Care Unava ilable MD MARTINEZ [place] Attending Unavail able MD MARTINEZ [place] Referring Unavail able Geo, Dr. Gricelda Vivar Referring Unav ailable Sparrow, Anabelle Yuli Smithn Attending Unavailab le Adam, Dr. Opal Yanez Primary Care Unava ilable Stevens, Dr. Opal Yanez Primary Care Unava ilable Guardado, Dr. Gricelda Vivar Attending Unav ailable Guardado, Dr. Gricelda Vivar Referring Unav ailable Stevens Opal COURTNEY Primary Care Provider ADAM COURTNEY, DR OPAL Wilson Primary Care ELISEO Ramesh DO Attending ELISEO Walsh DO Admitting Emeka MEDINA MD, DR OPAL Wilson Primary Care Lacy OLIVER MD, DR GRICELDA Piña Attending Unavailab aurelio MEDINA MD, DR OPAL Wilson Primary Care Lacy OLIVER MD, DR GRICELDA Piña Attending Lisa Velez MD, DR OPAL Wilson Primary Care UnavailELISEO Mejia DO Attending Emeka MEDINA MD, DR OPAL Wilson Primary Care Lacy OLIVER MD, DR GRICELDA Piña Attending Lisa Velez MD, DR OPAL Wilson Primary Care Unavailgia OLIVER MD, DR GRICELDA Piña Attending Unavailab aurelio VU, RAINE M Consulting Unavaila kenn MEDINA MD, DR OPAL Wilson Primary Care Unavailgia OLIVER MD, DR GRICELDA Piña Admitting Unavailab Simone COURTNEY, DR GRICELAD Piña Referring Unavailab aurelio OLIVER MD, DR GRICELDA Piña Attending Unavailab aurelio VU, BECK L Consulting Katerine MEDINA MD, DR OPAL Wilson Primary Care Unavailgia OLIVER MD, DR GRICELDA Piña Admitting Unavailab aurelio OLIVER MD, DR GRICELDA Piña Referring Unavailab aurelio OLIVER [...] MEDINA MD, DR OPAL Wilson Primary Care Unavailabl travis LAU PA-C, RAY W Attending Unavailable ADAM COURTNEY, DR OPAL Wilson Primary Care Unavailgia OLIVER MD, DR GRICELDA Piña Attending Unavailab aurelio MEDINA MD, DR OPAL Wilson Primary Care Unavailgia OLIVER MD, DR GRICELDA Piña Attending Unavailab Opal Velez MD Unavailable ADAM, OPAL M Primary Care [...] Unavailable Pamela Hernandez Referring Unavailable Pamela Hernandez Primary Care Unavailable Pamela Hernandez Attending Unavailable Pamela Hernandez Primary Care Unavailable Pamela Hernandez Attending Unavailable Pamela Hernandez Referring Unavailable Dr. Pamela Hernandez MD Primary Care Provider [phone] Dr. Pamela Hernandez MD Referring Provider Augusto Davis MD Emergency Provider Medications Current Medications Medication Drug Class(es) Dates [...] tablet by mouth every six hours HYDROcodone-acetaminophen ([place]) 5-325 mg tablet Take 1 tablet by mouth every 6 hours. 0 02/25/2023 07/05/2023 Discontinued (Med List Cleanup) [id number] 200 actuat albuterol 0.09 mg/actuat metered dose [...] Status: Ordered apixaban 5 mg oral tablet (20 sources) Factor Xa Inhibitor Start: 11-30-2024 take [...] QID, # 40 cap(s), 0 Refill(s), Pharmacy: [address], 177, cm, 06/24/21 19:36:00 EST, [...] Start: 05-17-2017 take 1 capsule by mo [facility] once daily cholecalciferol (Vitamin D-3) 50 mcg (2,000 unit) capsule Take 1 capsule (50 mcg) by mouth once daily. 05/17/2017 Active cyclobenzaprine hydrochloride 5 mg oral tablet (18 sources) Muscle Relaxant Start: 11-30-2024 take 1 tablet by mouth three times daily as needed for muscle spasms Cyclobenzaprine 5 mg tablet Active 5 mg PO THREE TIMES A DAY as needed for muscle spasm 30 0 November 30, 2024 12:00am Start: 07-05-2023 End: 10-26-2024 cyclobenzaprine (Flexeril) 5 mg tablet Indications: RLS (restless legs syndrome) Take 1 tablet (5 mg) by mouth as needed at bedtime for muscle spasms (for Restless leg). 90 tablet 3 11/01/2023 10/26/2024 Active Start: 06-09-2018 [facility] Cyclobenzaprine HCl - 10 MG [...] Ordered docusate sodium 50 mg / sennosides, chcf 8.6 mg oral tablet (2 sources) Start: 01-16-2023 End: 01-21-2023 take 1 tablet by mouth twice daily Senokot S 50 mg-8.6 mg oral tablet Dose = 2 tab(s), Oral, BID, X 5 day(s), # 20 tab(s), 0 Refill(s), [facility]: [facility] #[id number], 172.7, cm, 01/15/23 10:08:00 EDT, Height, kg, 01/15/23 10:08:00 EDT, Dosing Weight Start Date: 01/16/23 Stop Date: 01/21/23 Status: Ordered Start: 07-11-2022 End: 07-14-2022 take 1 tablet by mouth twice daily Senokot S 50 mg-8.6 mg oral tablet Dose = 2 tab(s), Oral, BID, Take until first bowel movement, then as needed, X 3 day(s), # 12 tab(s), 0 Refill(s), [facility]acy: [facility] #[id number], 172.7, cm, 07/10/22 9:49:00 EST, Height Start Date: 07/11/22 Stop Date: 07/14/22 Status: Ordered doxycycline hyclate 100 mg oral capsule (3 sources) Tetracycline-class Drug Start: 01-16-2023 End: 01-30-2023 doxycycline hyclate 100 mg oral capsule Dose : 100 mg = 1 cap(s), Oral, q12h, X 14 day(s), # 28 cap(s), 0 Refill(s), 01/30/23 8:07:00 AM EDT, [facility]acy: [facility] #[id number], 172.7, cm, 01/15/23 10:08:00 EDT, Height, 119, kg, 01/15/23 10:08:00 EDT, Dosing Weight Start Date: 01/16/23 Stop Date: 01/30/23 Status: Ordered Start: 07-11-2022 End: 07-25-2022 doxycycline hyclate 100 mg o ral capsule Dose : 100 mg = 1 cap(s), Oral, q12h, X 14 day(s), # 28 cap(s), 0 Refill(s), 07/25/22 6:34:00 EDT, Pharmacy: [facility] #[id number], 172.7, cm, 07/10/22 9:49:00 EST, Height, 126.7 Start Date: 07/11/22 Stop Date: 07/25/22 Status: Ordered DULoxetine 30 mg delayed release oral capsule (2 sources) Serotonin and Norepinephrine Reuptake Inhibitor Start: 11-30-2024 take 1 capsule by mouth once daily Duloxetine (Cymbalta) 30 mg capsule,delayed release(DR/EC) Active 30 mg PO daily 30 November 30, 2024 12:00am famotidine 20 mg oral tablet (4 sources) Histamine-2 Receptor Antagonist Start: 01-16-2023 Pepcid 20 mg oral tablet Dose : 20 mg = 1 tab(s), Oral, qDay, # 30 tab(s), 0 Refill(s), Pharmacy: [facility] #[id number], 172.7, cm, 01/15/23 10:08:00 EDT, Height, kg, [...] Start: 11-01-2023 take 1 tablet by zoraida once daily hydroCHLOROthiazide (HYDRODiuril) 50 mg tablet [...] / neomycin 3.5 mg/ml / polymyxin b [id number] unt/ml otic solution (8 sources) Aminoglycoside Antibacterial, Polymyxin-class Antibacterial, Corticosteroid Start: 07-05-2023 [id number]-[id number]-IH (Cortisporin) otic solution Indications: Acute swimmer's ear [...] Acid (Men's Daily Gummies) 200 mcg Tablet,Chewable (3 sources) Start: 05-31-2022 take 1 tablet by mouth [...] Refill(s), 01/23/23 8:08:00 AM EDT, [facility]acy: [facility] #[id number], 172.7, cm, 01/15/23 10:08:00 EDT, Height, kg, [...] 0 Refill(s), 01/23/23 8:08:00 AM EDT, [facility]acy: [facility] #[id number], Knee arthropathy Other acute postprocedural pain, 172.7, [...] tab(s), 0 Refill(s), 07/18/22 6:35:00 EST, Pharmacy: [facility] #[id number], Status post total left knee replacement, 172.7, [...] (Therapy completed) sertraline 100 mg oral tablet (20 sources) Serotonin Reuptake Inhibitor Start: 11-30-2024 take [...] mg / trimethoprim 160 mg oral tablet (19 sources) Dihydrofolate Reductase Inhibitor Antibacterial, Sulfonamide Antimicrobial Start: 12-09-2024 Sulfamethoxazole-Trimethopri m (Bactrim Ds) 800-160 mg tablet Active 1 {tbl} PO TWICE A DAY 20 0 December 09, 2024 12:00am Start: 01-26-2023 End: 02-05-2023 take 1 tablet [...] mg oral tablet Dose = 1 tab(s), Oral, q12h, X 10 day(s), # 20 tab(s), 0 Refill(s), Pharmacy: [address], 177, cm, 06/24/21 19:36:00 EST, Height, 130, [...] potassium 99 mg extended release oral tablet (3 sources) Start: 05-31-2022 End: 11-30-2024 take 1 tablet [...] Date Documented Da te Episodic/Chronic Administrative/social admission (3 sources) First encounter by subject; Translations: [Persons encountering health services in other specified circumstances] 11-30-2024 Episodic Anxiety disorders (2 sources) Moderate anxiety; Translations: [Anxiety disorder, unspecified] 11-30-2024 Chronic Asthma (20 sources) Unspecified asthma, uncomplicated; Translations: [Asthma] Onset: 9 06-29-2022 Chronic Cancer; other and unspecified primary (2 sources) H/O Malignant melanoma Episodic Chronic obstructive pulmonary disease and bronchiectasis (20 sources) Chronic obstructive pulmonary disease, unspecified; Translations: [Emphysema, unspecified] Onset: 9 Chronic Coma; stupor; and brain damage (7 sources) Daytime somnolence; Translations: [Excessive daytime sleepiness] Episodic Diseases of white blood cells (4 sources) Leukocytosis; Translations: [Leukocytosis] Chronic Disorders of lipid metabolism (9 sources) Hypercholesterolemia; Translations: [Pure hypercholesterolemia, unspecified] Onset: 4 07-05-2023 Chronic Esophageal disorders (4 sources) Gastroesophageal reflux disease; Translations: [Gastro-esophageal reflux disease without esophagitis] 11-30-2024 Chronic Essential hypertension (20 sources) Essential (primary) hypertension; Translations: [Hypertensive disorder] Onset: 9 Chronic Inflammatory conditions of male genital organs (20 sources) Abscess of testis; Translations: [Orchitis, epididymitis, and epididymo-orchitis, with abscess] Onset: 3 Resolved: 3 07-31-2022 Episodic Malaise and fatigue (1 source) Other fatigue; Translations: [OTHER FATIGUE] Onset: 9 Episodic Melanomas of skin (20 sources) Malignant melanoma; Translations: [Melanoma of skin, site unspecified] Onset: 3 06-29-2022 Chronic Comment on above: romoved from right c heek approx 2006; Melanomas of skin (3 sources) Personal history of malignant melanoma of skin; Translations: [H/O Malignant melanoma] Onset: 5 11-30-2024 Episodic Mood disorders (16 sources) Moderate major depression, single episode; Translations: [...] Resolved: 3 Chronic Other aftercare (1 source) residential (current) use of aspirin; Translations: [residential (current) use of aspirin] Onset: 9 Episodic Other aftercare (1 source) Long-term current use of anticoagulant; Translations: [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 (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) use of anticoagulants] 12-09-2024 Episodic Other and unspecified benign neoplasm (1 [...] Other hereditary and degenerative nervous system conditions (5 sources) Restless legs; Translations: [Restless legs syndrome] [...] Translations: [Abnormal feces] Onset: 5 Resolved: 1 11-30-2024 Episodic Peripheral and visceral atherosclerosis (1 source) Chronic total occlusion of artery of the extremities; Translations: [Chronic total occlusion of artery of the extremities] Onset: 5 Chronic Phlebitis; thrombophlebitis and thromboembolism (2 sources) Chronic deep venous thrombosis; Translations: [Chronic embolism and thrombosis of unspecified deep veins of unspecified lower extremity] 11-30-2024 Chronic Phlebitis; thrombophlebitis and thromboembolism (20 sources) [...] Onset: 9 Rheumatoid arthritis and related disease (4 sources) Rheumatoid arthritis; Translations: [Rheumatoid arthritis, unspecified] [...] Translations: [Low back pain, unspecified] Onset: 2 Unclassified (4 sources) Z85.820 - Personal history of malignant melanoma of skin Past or Other Problems Problem Classification Problem Date Documented Da te Episodic/Chronic Genitourinary symptoms and ill-defined conditions (20 sources) Microscopic hematuria; Translations: [Asymptomatic microscopic hematuria] Resolved: 05-23-2020 Episodic Immunizations and screening for infectious disease (2 sources) Encounter for immunization; Translations: [Encounter for immunization] Onset: 02-28-2024 Episodic Mood disorders (8 sources) Mood disorders [...] Test Name Value Interpretation Reference Range Facility Absolute lymphocyte countOrd ered By: Pamela Hernandez on 12-02-2024 Lymphocytes Auto (Unsp spec) [#/Vol] 2.83 10*3/uL 0.83-4.51 [facility] Absolute neutrophil countOrd ered By: Pamela Hernandez on 12-02-2024 Neutrophils (Bld) [#/Vol] 4.3 10*3/uL 2.0-7.7 [facility] Anion gap in Serum or Plasma Ordered By: Pamela Hernandez on 12-02-2024 Anion gap [Moles/Vol] 10 mmol/L 5-15 [facility] Automated lymphocyte count a s percentage of total leukocytesOrdered By: Pamela Hernandez on 12-02-2024 Lymphocytes/100 WBC Auto (Unsp spec) 33.4 % 19-41 [facility] BUN/creatinine ratioOrdered By: Pamela Hernandez on 12-02-2024 Urea nitrogen/Creatinine [Mass ratio] 14.1 mg/mg 10-20 [facility] Basophil percentageOrdered B y: Pamela Hernandez on 12-02-2024 Basophils/100 WBC (Bld) 1.3 % High 0-1 [facility] Bilirubin, totalOrdered By: Pamela Hernandez on 12-02-2024 Bilirubin [Mass/Vol] 0.40 mg/dL 0.00-1.30 [facility] CBC W/Diff, Automatedon 11-11 Absolute Lymph 2.83 X10 3/uL Normal 0.83-4.51 [facility] Comment on above: Performed By: #### L 500.4050, L506.1001, L100.0100, L500.4100 #### [facility] Laboratory [address] [place], [address] Absolute Neut 4.3 X10 3/uL Normal 2.0-7.7 [facility] Comment on above: Performed By: #### L 500.4050, L506.1001, L100.0100, L500.4100 #### [facility] [address] [place], [address] Basophils/100 WBC (Bld) 1.3 % High 0-1 [facility] Comment on above: Performed By: #### L 500.4050, L506.1001, L100.0100, L500.4100 #### [facility] [address] [place], [address] Eosinophils/100 WBC (Bld) 3.4 % Normal 0-5 [facility] Comment on above: Performed By: #### L 500.4050, L506.1001, L100.0100, L500.4100 #### [facility] [address] [place], [address] Erythrocyte distribution width (RBC) [Ratio] 15.3 % High 11.6-14.6 [facility] Comment on above: Performed By: #### L 500.4050, L506.1001, L100.0100, L500.4100 #### [facility] [address] [place], [address] Hematocrit (Bld) [Volume fraction] 43.3 % Normal 40-54 [facility] Comment on above: Performed By: #### L 500.4050, L506.1001, L100.0100, L500.4100 #### [facility] [address] [place], [address] Hemoglobin (Bld) [Mass/Vol] 14.4 g/dL Normal 13.0-16.5 [facility] Comment on above: Performed By: #### L 500.4050, L506.1001, L100.0100, L500.4100 #### [facility] [address] [place], [address] IG% 0.400 Normal 0.0-0.9 [facility] Comment on above: Result Comment: IG% - Immature Granulocytes (promyelocytes, myelocytes and metamyelocytes) > 1% indicates that a LEFT SHIFT is Present. Performed By: #### L 500.4050, L506.1001, L100.0100, L500.4100 #### [facility] [address] [place], [address] Lymphocytes/100 WBC (Bld) 33.4 % Normal 19-41 [facility] Comment on above: Performed By: #### L 500.4050, L506.1001, L100.0100, L500.4100 #### [facility] [address] [place], [address] MCH (RBC) [Entitic mass] 29.6 pg Normal 27.0-32.0 [facility] Comment on above: Performed By: #### L 500.4050, L506.1001, L100.0100, L500.4100 #### [facility] [address] [place], [address] MCHC (RBC) [Mass/Vol] 33.3 g/dL Normal 32-36 [facility] Comment on above: Performed By: #### L 500.4050, L506.1001, L100.0100, L500.4100 #### [facility] [address] [place], [address] MCV (RBC) [Entitic vol] 88.9 fL Normal 80-94 [facility] Comment on above: Performed By: #### L 500.4050, L506.1001, L100.0100, L500.4100 #### [facility] [address] [place], [address] Monocytes/100 WBC (Bld) 10.7 % High 0-10 [facility] Comment on above: Performed By: #### L 500.4050, L506.1001, L100.0100, L500.4100 #### [facility] [address] [place], [address] Neutrophils/100 WBC (Bld) 50.8 % Normal 47-70 [facility] Comment on above: Performed By: #### L 500.4050, L506.1001, L100.0100, L500.4100 #### [facility] [address] [place], [address] Nucleated RBC (Bld) [#/Vol] 0 10*3/uL Normal 0-5 [facility] Comment on above: Performed By: #### L 500.4050, L506.1001, L100.0100, L500.4100 #### [facility] [address] [place], [address] Platelet mean volume (Bld) [Entitic vol] 10.0 fL Normal 6.2-12.0 [facility] Comment on above: Performed By: #### L 500.4050, L506.1001, L100.0100, L500.4100 #### [facility] [address] [place], [address] Platelets (Bld) [#/Vol] 268 10*3/uL Normal 150-450 [facility] Comment on above: Performed By: #### L 500.4050, L506.1001, L100.0100, L500.4100 #### [facility] [address] [place], [address] RBC (Bld) [#/Vol] 4.87 10*6/uL Normal 4.6-6.2 [facility] Comment on above: Performed By: #### L 500.4050, L506.1001, L100.0100, L500.4100 #### [facility] [address] [place], [address] RDW SD 50.4 fl High 35.1-43.9 [facility] Comment on above: Performed By: #### L 500.4050, L506.1001, L100.0100, L500.4100 #### [facility] [address] [place], [address] WBC (Bld) [#/Vol] 8.5 10*3/uL Normal 4.4-11.0 [facility] Comment on above: Performed By: #### L 500.4050, L506.1001, L100.0100, L500.4100 #### [facility] [address] [place], [address] Calculated very low density lipoprotein (VLDL) cholesterol measurementOrdered By: Pamela Mary on 12-02-2024 Calculated very low density lipoprotein (VLDL) cholesterol measurement 21 mg/dL 5-40 [facility] Carbon dioxide, total [Moles /volume] in Central venous bloodOrdered By: Pamela Mary on 12-02-2024 CO2 [Moles/Vol] 25.3 mmol/L 21.0-32.0 [facility] Chloride assayOrdered By: Al ycia Mary on 12-02-2024 Chloride [Moles/Vol] 105 mmol/L 98-108 [facility] Comprehensive Metabolic Prof ilon 12-02-2024 Albumin [Mass/Vol] 4.1 g/dL Normal 3.4-4.8 [facility] Comment on above: Performed By: #### L 500.4050, L506.1001, L100.0100, L500.4100 #### [facility] [address] [place], [address] Albumin/Globulin [Mass ratio] 1.3 {ratio} Normal 0.9-2.4 [facility] Comment on above: Performed By: #### L 500.4050, L506.1001, L100.0100, L500.4100 #### [facility] [address] [place], [address] ALK PHOS 61 U/L Normal 40-129 [facility] Comment on above: Performed By: #### L 500.4050, L506.1001, L100.0100, L500.4100 #### [facility] [address] [place], [address] ALT [Catalytic activity/Vol] 21 U/L Normal <=46 [facility] Comment on above: Performed By: #### L 500.4050, L506.1001, L100.0100, L500.4100 #### [facility] Laboratory [address] [place], [address] AST [Catalytic activity/Vol] 20 U/L Normal <=37 [facility] Comment on above: Performed By: #### L 500.4050, L506.1001, L100.0100, L500.4100 #### [facility] [address] [place], [address] Bilirubin [Mass/Vol] 0.40 mg/dL Normal 0.00-1.30 [facility] Comment on above: Performed By: #### L 500.4050, L506.1001, L100.0100, L500.4100 #### [facility] [address] [place], [address] BUN/CRE 14.1 RATIO Normal 10-20 [facility] Comment on above: Performed By: #### L 500.4050, L506.1001, L100.0100, L500.4100 #### [facility] Laboratory [address] [place], [address] Calcium [Mass/Vol] 9.9 mg/dL Normal 7.6-11.0 [facility] Comment on above: Performed By: #### L 500.4050, L506.1001, L100.0100, L500.4100 #### [facility] [address] [place], [address] Chloride [Moles/Vol] 105 mmol/L Normal 98-108 [facility] Comment on above: Performed By: #### L 500.4050, L506.1001, L100.0100, L500.4100 #### [facility] [address] [place], [address] CO2 [Moles/Vol] 25.3 mmol/L Normal 21.0-32.0 [facility] Comment on above: Performed By: #### L 500.4050, L506.1001, L100.0100, L500.4100 #### [facility] Laboratory [address] [place], [address] Creatinine [Mass/Vol] 0.86 mg/dL Normal 0.70-1.20 [facility] Comment on above: Performed By: #### L 500.4050, L506.1001, L100.0100, L500.4100 #### [facility] [address] [place], [address] GAP 10 Normal 5-15 [facility] Comment on above: Performed By: #### L 500.4050, L506.1001, L100.0100, L500.4100 #### [facility] [address] [place], [address] GFR/1.73 sq M.predicted among non-blacks MDRD (S/P/Bld) [Vol rate/Area] 98 mL/min/{1.73_m2} Normal >60 [facility] Comment on above: Result Comment: mL/m in/1.73m2 CKD-EPI Creatinine Equation (2020) Performed By: #### L 500.4050, L506.1001, L100.0100, L500.4100 #### [facility] [address] [place], [address] Globulin (S) [Mass/Vol] 3.2 g/dL Normal 2.2-4.2 [facility] Comment on above: Performed By: #### L 500.4050, L506.1001, L100.0100, L500.4100 #### [facility] [address] [place], [address] Glucose [Mass/Vol] 104 mg/dL High 70-99 [facility] Comment on above: Performed By: #### L 500.4050, L506.1001, L100.0100, L500.4100 #### [facility] [address] [place], [address] Potassium [Moles/Vol] 4.8 mmol/L Normal 3.3-5.1 [facility] Comment on above: Performed By: #### L 500.4050, L506.1001, L100.0100, L500.4100 #### [facility] [address] [place], [address] Sodium [Moles/Vol] 141 mmol/L Normal 133-145 [facility] Comment on above: Performed By: #### L 500.4050, L506.1001, L100.0100, L500.4100 #### [facility] [address] [place], [address] T PROT 7.3 g/dL Normal 5.9-8.4 [facility] Comment on above: Performed By: #### L 500.4050, L506.1001, L100.0100, L500.4100 #### [facility] [address] [place], [address] Urea nitrogen [Mass/Vol] 12 mg/dL Normal 4-19 [facility] Comment on above: Performed By: #### L 500.4050, L506.1001, L100.0100, L500.4100 #### [facility] [address] [place], [address] Eosinophil percentageOrdered By: Pamela Hernandez on 12-02-2024 Eosinophils/100 WBC (Bld) 3.4 % 0-5 [facility] Erythrocyte distribution wid th ratioOrdered By: Pamela Hernandez on 12-02-2024 Erythrocyte distribution width (RBC) [Ratio] 15.3 % High 11.6-14.6 [facility] Erythrocyte distribution wid th standard deviationOrdered By: Pamela Hernandez on 12-02-2024 Erythrocyte distribution width (RBC) [Ratio] 50.4 fl High 35.1-43.9 [facility] Glomerular filtration rate ( GFR) estimation/1.73 sq m using serum, plasma, or whole bOrdered By: Pamela Hernandez on 12-02-2024 GFR/1.73 sq M.predicted among non-blacks MDRD (S/P/Bld) [Vol rate/Area] 98 mL/min/{1.73_m2} >60 [facility] Comment on above: mL/min/1.73m2 CKD-EP I Creatinine Equation (2020) Hematocrit Auto (Bld) [Volum e fraction]Ordered By: Pamela Hernandez on 12-02-2024 Hematocrit (Bld) [Volume fraction] 43.3 % 40-54 [facility] Hemoglobin measurementOrdere d By: Pamela Hernandez on 12-02-2024 Hemoglobin (Bld) [Mass/Vol] 14.4 g/dL 13.0-16.5 [facility] Immature granulocytes/100 WB C Auto (Bld)Ordered By: Pamela Hernandez on 12-02-2024 Immature granulocytes/100 WBC (Bld) 0.400 % 0.0-0.9 [facility] Comment on above: IG% - Immature Granu locytes (promyelocytes, myelocytes and metamyelocytes) > 1% indicates that a LEFT SHIFT is Present. LDL calc ser/plasOrdered By: Pamela Hernandez on 12-02-2024 Cholesterol in LDL [Mass/Vol] 71 mg/dL [facility] Comment on above: Mkmcclmtpj=432-368 m g/dL & Higher Rkhw=629 mg/dL or greater Laboratory - Chemistry and C hemistry - challengeOrdered By: Pamela Hernandez on 12-02-2024 AST [Catalytic activity/Vol] 20 U/L <38 [facility] Lipid Profileon 12-02-2024 CHOL:HDL 2.92 Normal [facility] Comment on above: Performed By: #### L 500.4050, L506.1001, L100.0100, L500.4100 #### [facility] [address] [place], [place], [address] Cholesterol [Mass/Vol] 140 mg/dL Normal <=200 [facility] Comment on above: Result Comment: Chol esterol level, Desirable <200 mg/dL Borderline high cholesterol 200-239 mg/dL High cholesterol >=240 mg/dL Recommendations of the NCEP Adult Treatment Panel for the following risk-cutoff thresholds for the [place] population. Performed By: #### L 500.4050, L506.1001, L100.0100, L500.4100 #### [facility] [address] [place], [place], [address] Cholesterol in HDL [Mass/Vol] 48 mg/dL Normal [facility] Comment on above: Result Comment: Jenn onal Cholesterol Education Program (NCEP) guidelines: <40 mg/dL: Low HDL-cholesterol (major risk factor for CHD) >= 60 mg/dL: High HDL-cholesterol (negative risk factor for CHD) HDL-cholesterol is affected by a number of factors, e.g. smoking, exercise, hormones, sex and age. Performed By: #### L 500.4050, L506.1001, L100.0100, L500.4100 #### [facility] [address] [place], [address] Cholesterol in LDL [Mass/Vol] 71 mg/dL Normal [facility] Comment on above: Result Comment: Bord xhbcse=557-737 mg/dL Higher Uveh=746 mg/dL or greater Performed By: #### L 500.4050, L506.1001, L100.0100, L500.4100 #### [facility] [address] [place], [address] Cholesterol in VLDL [Mass/Vol] 21 mg/dL Normal 5-40 [facility] Comment on above: Performed By: #### L 500.4050, L506.1001, L100.0100, L500.4100 #### [facility] [address] [place], [address] Triglyceride [Mass/Vol] 107 mg/dL Normal [facility] Comment on above: Result Comment: The drugs N-Acetylcysteine and Metamizole may falsely depress this assay. Normal range: <150 mg/dL Borderline High: 150-199 mg/dL High: 200-499 mg/dL Very High: >500 mg/dL Performed By: #### L 500.4050, L506.1001, L100.0100, L500.4100 #### [facility] [address] [place], [address] MCV (mean corpuscular volume ) determinationOrdered By: Pamela Hernandez on 12-02-2024 MCV (RBC) [Entitic vol] 88.9 fL 80-94 [facility] Mean corpuscular hemoglobin (MCH) determinationOrdered By: Pamela Hernandez on 12-02-2024 MCH (RBC) [Entitic mass] 29.6 pg 27.0-32.0 [facility] Mean corpuscular hemoglobin concentration (MCHC) determinationOrdered By: Pamela Hernandez on 12-02-2024 MCHC (RBC) [Mass/Vol] 33.3 g/dL 32-36 [facility] Mean platelet volume determi nationOrdered By: Pamela Hernandez on 12-02-2024 Platelet mean volume (Bld) [Entitic vol] 10.0 fL 6.2-12.0 [facility] Monocyte percentageOrdered B y: Pamela Hernandez on 12-02-2024 Monocytes/100 WBC (Bld) 10.7 % High 0-10 [facility] Neutrophil percentageOrdered By: Pamela Hernandez on 12-02-2024 Neutrophils/100 WBC (Bld) 50.8 % 47-70 [facility] Nucleated red blood cell per centageOrdered By: Pamela Hernandez on 12-02-2024 Nucleated RBC/100 WBC (Bld) [Ratio] 0 % 0-5 [facility] Platelet countOrdered By: Hitesh Hernandez on 12-02-2024 Platelets (Bld) [#/Vol] 268 10*3/uL 150-450 [facility] Potassium measurement (mass/ volume)Ordered By: Pamela Hernandez on 12-02-2024 Potassium (Unsp spec) [Mass/Vol] 4.8 mmol/L 3.3-5.1 [facility] RBC Auto (Bld) [#/Vol]Ordere d By: Pamela Hernandez on 12-02-2024 RBC (Bld) [#/Vol] 4.87 10*6/uL 4.6-6.2 [facility] Screening total cholesterol/ high density lipoprotein (HDL) cholesterol ratioOrdered By: Pamela Hernandez on 12-02-2024 Cholesterol.total/Chol esterol in HDL [Mass ratio] 2.92 {ratio} [facility] Serum creatinine measurement (mass/volume)Ordered By: Pamela Hernandez on 12-02-2024 Creatinine [Mass/Vol] 0.86 mg/dL 0.70-1.20 [facility] Serum globulin measurementOr dered By: Pamela Hernandez on 12-02-2024 Globulin (S) [Mass/Vol] 3.2 g/dL 2.2-4.2 [facility] Serum glucose measurement (m ass/volume)Ordered By: Pamela Hernandez on 12-02-2024 Glucose [Mass/Vol] 104 mg/dL High 70-99 [facility] Serum or plasma alanine ayala otransferase (ALT) measurementOrdered By: Pamela Hernandez on 12-02-2024 ALT [Catalytic activity/Vol] 21 U/L <47 [facility] Serum or plasma albumin jessica urement (mass/volume)Ordered By: Pamela Hernandez on 12-02-2024 Albumin [Mass/Vol] 4.1 g/dL 3.4-4.8 [facility] Serum or plasma albumin/glob ulin mass ratioOrdered By: Pamela Hernandez on 12-02-2024 Albumin/Globulin [Mass ratio] 1.3 {ratio} 0.9-2.4 [facility] Serum or plasma alkaline jasmina sphatase measurementOrdered By: Pamela Hernandez on 12-02-2024 ALP [Catalytic activity/Vol] 61 U/L 40-129 [facility] Serum or plasma calcium jessica urement (mass/volume)Ordered By: Pamela Hernandez on 12-02-2024 Calcium [Mass/Vol] 9.9 mg/dL 7.6-11.0 [facility] Serum or plasma cholesterol in HDL measurement (mass/volume)Ordered By: Pamela Hernandez on 12-02-2024 Cholesterol in HDL [Mass/Vol] 48 mg/dL >40 [facility] Comment on above: National Cholesterol Education Program (NCEP) guidelines:<40 mg/dL: Low HDL-cholesterol (major risk factor for CHD)>= 60 mg/dL: High HDL-cholesterol (negative risk factor for CHD)HDL-cholesterol is affected by a number of factors, e.g. smoking, exercise, hormones, sex and age. Serum or plasma cholesterol measurement (mass/volume)Ordered By: Pamela Hernandez on 12-02-2024 Cholesterol [Mass/Vol] 140 mg/dL <201 [facility] Comment on above: Cholesterol level, D esirable <200 mg/dLBorderline high cholesterol 200-239 mg/dLHigh cholesterol >=240 mg/dLRecommendations of the NCEP Adult Treatment Panel for the following risk-cutoff thresholds for the [place] population. Serum or plasma urea nitroge n measurement (mass/volume)Ordered By: Pamela Hernandez on 12-02-2024 Urea nitrogen [Mass/Vol] 12 mg/dL 4-19 [facility] Sodium levelOrdered By: Awilda Hernandez on 12-02-2024 Sodium [Moles/Vol] 141 mmol/L 133-145 [facility] Total proteinOrdered By: Lencho Hernandez on 12-02-2024 Protein [Mass/Vol] 7.3 g/dL 5.9-8.4 [facility] Triglycerides measurementOrd ered By: Pamela Hernandez on 12-02-2024 Triglyceride [Mass/Vol] 107 mg/dL <199 [facility] Comment on above: The drugs N-Acetylcy steine and Metamizole may falsely depress this assay. Normal range: <150 mg/dLBorderline High: 150-199 mg/dLHigh: 200-499 mg/dLVery High: >500 mg/dL Vitamin D,25 Hydroxyon 12-02 Vitamin D 25-OH 30.5 ng/mL Normal 30-100 [facility] Comment on above: Result Comment: Leatha min D Status Deficiency: <20 ng/mL (50nmol/L) Insufficiency: 20-30 ng/mL (50-75 nmol/L) Sufficiency: 30-100 ng/mL (75-250 nmol/L) Toxicity: >100 ng/mL (>250 nmol/L) Performed By: #### L 500.4050, L506.1001, L100.0100, L500.4100 #### [facility] [address] [place], [address] White blood cell (WBC) count Ordered By: Pamela Hernandez on 12-02-2024 WBC (Bld) [#/Vol] 8.5 10*3/uL 4.4-11.0 [facility] Internal Medicine Office Vis nohemy 11-26-2024 Internal Medicine Office Visit [facility] [address] [place] [address] [place] [address] OFFICE VISIT Date of Service: 11/30/24 MR#: [id number] Acct: [id number] Name: ILDEFONSO ROCHA Rep #: [id number] : 1960 Provider: Dr. 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 VIRAL-7 BMS VIRAL-7 Feeling nervous, anxious, or [...] might happ (more content not included)... Normal [facility] Hepatic function 2000 panelo n 10-29-2023 Albumin BCP dye [Mass/Vol] 4.4 g/dL Normal 3.4-5.0 [facility] Comment on above: Performed By: #### T HYDS #### CE Ascencio (25321) [facility] ([facility]) [address] [place] [address] ALP [Catalytic activity/Vol] 59 U/L Normal 33-136 [facility] Comment on above: Performed By: #### T HYDS #### CE Ascencio (38673) [facility] ([facility]) [address] [place] [address] ALT With P-5'-P [Catalytic activity/Vol] 21 U/L Normal 10-52 [facility] Comment on above: Result Comment: Perla ents treated with Sulfasalazine may generate falsely decreased results for ALT. Performed By: #### T HYDS #### CE Ascencio (06418) [facility] ([facility]) [address] [place] [address]38[address] AST With P-5'-P [Catalytic activity/Vol] 15 U/L Normal 9-39 [facility] Comment on above: Performed By: #### T HYDS #### CE Ascencio (39318) [facility] ([facility]) [address] [place] [address] Bilirubin [Mass/Vol] 0.5 mg/dL Normal 0.0-1.2 [facility] Comment on above: Performed By: #### T HYDS #### CE SHRESTHAMOTZER L (49829) [facility] ([facility]) [address] [place] [address] Bilirubin.direct [Mass/Vol] 0.1 mg/dL Normal 0.0-0.3 [facility] Comment on above: Performed By: #### T HYDS #### CE SHRESTHAMOTZER L (91756) [facility] ([facility]) [address] [place] [address] Protein [Mass/Vol] 7.3 g/dL Normal 6.4-8.2 [facility] Comment on above: Performed By: #### T HYDS #### CE Ascencio (05148) [facility] ([facility]) [address] [place] [address] Lipid 1996 panelon 4 Cholesterol [Mass/Vol] 157 mg/dL Normal 0-199 [facility] Comment on above: Result Comment: [...] By: #### T HYDS #### CE Ascencio (74112) [facility] ([facility]) [address] [place] [address] Cholesterol in HDL [Mass/Vol] 46.7 mg/dL Normal [facility] Comment on above: Result Comment: Age Very Low Low Normal High 0-19 Y < 35 < 40 40-45 ---- 20-24 Y ---- < 40 >45 ---- >24 Y ---- < 40 40-60 >60 Performed By: #### T HYDS #### CE Ascencio (18767) [facility] ([facility]) [address] [place] [address] Cholesterol in LDL [Mass/Vol] 84 mg/dL Normal <=99 [facility] Comment on above: Result Comment: Near Borderline AGE Desirable Optimal High High Very High 0-19 Y 0 - 109 --- 110-129 >/= 130 ---- 20-24 Y 0 - 119 --- 120-159 >/= 160 ---- >24 Y 0 - 99 100-129 130-159 160-189 >/=190 Performed By: #### T HYDS #### CE Ascencio (30934) [facility] ([facility]) [address] [place] [address] Cholesterol in VLDL [Mass/Vol] 26 mg/dL Normal 0-40 [facility] Comment on above: Performed By: #### T HYDS #### CE Ascencio (43635) [facility] ([facility]) [address] [place] [address]3977 CHOLESTEROL/HDL RATIO 3.4 Normal [facility] Comment on above: Result Comment: Ref Values Desirable < 3.4 High Risk > 5.0 Performed By: #### T HYDS #### CE Ascencio (07104) [facility] ([facility]) [address] [place] [address]9429 NON HDL CHOLESTEROL 110 mg/dL Normal 0-149 [facility] Comment on above: Result Comment: Age Desirable Borderline High High Very High 0-19 Y 0 - 119 120 - 144 >/= 145 >/= 160 20-24 Y 0 - 149 150 - 189 >/= 190 ---- >24 Y 30 mg/dL above LDL Cholesterol goal Performed By: #### T ADELAS #### CE Ascencio (04594) [facility] ([facility]) [address] [place] [address] Triglyceride [Mass/Vol] 130 mg/dL Normal 0-149 [facility] Comment on above: Result Comment: Age Desirable [...] to Metamizole dosing. Performed By: #### T ADELAS #### CE Ascencio (42058) [facility] ([facility]) [address] [place] [address] US.doppler Carotid arteries - bilateralon 09-23-[address], [address] [address] and Vascular Lab Report [facility] US CAROTID ARTERY DUPLEX BILATERAL Patient Name: ILDEFONSO Shelton Physician: [id number] Warren Caldwell MD Study Date: 09/23/2023 Ordering Physician: [id number] OPAL MEDINA MRN/PID: [id number] Technologist: Alessia Hart T Technologist 2: Date of /Age: 11 1960 / 63 years Gender: M Admission Status: Outpatient Location Performed: [facility] Diagnosis/ICD: Syncope and collapse-R55 Indication: Syncope CPT Codes: 36662 Cerebrovascular Carotid Duplex scan complete CONCLUSIONS: Right [...] cm/s Right Left ICA/CCA Ratio 1.6 0.9 [id number] Warren Caldwell MD Final SYNGO Warren Caldwell MD - 09/23/[address], [address] [address] and Vascular Lab Report [facility] US CAROTID ARTERY DUPLEX BILATERAL Patient Name: WALKERKARAN FATIMANEREIDA Reading Physician: [id number] Caldwell MD Study Date: 09/23/2023 Ordering Physician: [id number] OPAL MEDINA MRN/PID: [id number] Technologist: Alessia Hart RVMichelle Technologist 2: Date of /Age: 11 1960 / 63 years Gender: M Admission Status: Outpatient Location Performed: [facility] Diagnosis/ICD: Syncope and collapse-R55 Indication: Syncope CPT Codes: 50823 Cerebrovascular Carotid Duplex scan complete CONCLUSIONS: Right [...] cm/s Right Left ICA/CCA Ratio 1.6 0.9 [id number] Warren Caldwell MD Final [facility] Work Phone: Radiology Study observation (narrative) [facility] Work Phone: US.doppler Carotid arteries - bilateralOrdered By: Warren Caldwell on 09-23-2023 [facility] Work Phone: VASC US CAROTID ARTERY DUPLE X BILATERALon 09-23-2023 VAS US CAROTID ARTERY DUPLEX BILATERAL [facility] [address] [place] [address], [address], [place], [place] [address] and Vascular Lab Report VASC US CAROTID ARTERY DUPLEX BILATERAL Patient Name: ILDEFONSO ROCHA Reading Physician: [id number] Warren Caldwell MD Study Date: 09/23/2023 Ordering Physician: [id number] OPAL MEDINA MRN/PID: [id number] Technologist: Alessia Garryreuben RVT Technologist 2: Date of /Age: 11 1960 / 63 years Gender: M Admission Status: Outpatient Location Performed: [facility] Diagnosis/ICD: Syncope and collapse-R55 Indication: Syncope CPT Codes: 23812 Cerebrovascular Carotid Duplex scan complete CONCLUSIONS: Right [...] cm/s Right Left ICA/CCA Ratio 1.6 0.9 [id number] Warren Caldwell MD Final [facility] CT HEAD WO IV CONTRASTon CT HEAD WO IV CONTRAST Interpreted By: Anneliese Mckeon, STUDY: CT HEAD WO IV CONTRAST; 09/04/2023 11:15 am INDICATION: Signs/Symptoms:headache and sycope. COMPARISON: None. ACCESSION NUMBER(S): [id number] ORDERING CLINICIAN: OPAL ADAM TECHNIQUE: Noncontrast axial CT scan of head [...] Anneliese Garza 09/04/2023 11:25 AM Dictation workstation: [id number] [facility] CT Head WO contraston 2023 1. Nonspecific [...] Anneliese Garza 09/04/2023 11:25 AM Dictation workstation: [id number] Interpreted By: Anneliese Barrera, STUDY: CT HEAD WO IV CONTRAST; 09/04/2023 11:15 am INDICATION: Signs/Symptoms:headache and sycope. COMPARISON: None. ACCESSION NUMBER(S): [id number] ORDERING CLINICIAN: OPAL MEDINA TECHNIQUE: Noncontrast axial [...] Signs/Symptoms:headache and sycope. COMPARISON: None. ACCESSION NUMBER(S): [id number] ORDERING CLINICIAN: OPAL MEDINA TECHNIQUE: Noncontrast axial [...] Anneliese Garza 09/04/2023 11:25 AM Dictation workstation: [id number] [facility] Work Phone: Radiology Study observation (narrative) [facility] Work Phone: CT Head WO contrastOrdered B y: Anneliese Garza on 09-04-2023 [facility] Work Phone: Comprehensive metabolic 2000 panelon 08-26-2023 Albumin BCP dye [Mass/Vol] 4.4 g/dL Normal 3.4-5.0 [facility] Comment on above: Performed By: #### 2 4323-8 #### CE Ascencio (36780) [facility] ([facility]) [address] [place] [address] ALP [Catalytic activity/Vol] 66 U/L Normal 33-136 [facility] Comment on above: Performed By: #### 2 4323-8 #### CE Ascencio (82671) [facility] ([facility]) [address] [place] [address] ALT With P-5'-P [Catalytic activity/Vol] 20 U/L Normal 10-52 [facility] Comment on above: Result Comment: Perla ents treated with Sulfasalazine may generate falsely decreased results for ALT. Performed By: #### 2 4323-8 #### CE Ascencio (25923) [facility] ([facility]) [address] [place] [address] Anion gap [Moles/Vol] 11 mmol/L Normal 10-20 [facility] Comment on above: Performed By: #### 2 4323-8 #### CE Ascencio (22439) [facility] ([facility]) [address] [place] [address] 27498 AST With P-5'-P [Catalytic activity/Vol] 14 U/L Normal 9-39 [facility] Comment on above: Performed By: #### 2 4323-8 #### CE Ascencio (39596) [facility] ([facility]) [address] [place] [address] Bilirubin [Mass/Vol] 0.4 mg/dL Normal 0.0-1.2 [facility] Comment on above: Performed By: #### 2 4323-8 #### CE Ascencio (76288) [facility] ([facility]) [address] [place] [address] Calcium [Mass/Vol] 9.7 mg/dL Normal 8.6-10.6 [facility] Comment on above: Performed By: #### 2 4323-8 #### CE Ascencio (73287) [facility] ([facility]) [address] [place] [address] 33482 Chloride [Moles/Vol] 102 mmol/L Normal 98-107 [facility] Comment on above: Performed By: #### 2 4323-8 #### CE Ascencio (77614) [facility] ([facility]) [address] [place] [address]381 CO2 [Moles/Vol] 29 mmol/L Normal 21-32 [facility] Comment on above: Performed By: #### 2 4323-8 #### CE Ascenico (32782) [facility] ([facility]) [address] [place] [address]5468 Creatinine [Mass/Vol] 0.87 mg/dL Normal 0.50-1.30 [facility] Comment on above: Performed By: #### 2 4323-8 #### CE Ascencio (18800) [facility] ([facility]) [address] [place] [address]137 GFR/1.73 sq M.predicted MDRD (S/P/Bld) [Vol rate/Area] mL/min/{1.73_m2} Normal >60 [facility] Comment on above: Result Comment: Calc ulations of estimated GFR are performed using the 2020 CKD-EPI Study Refit equation without the race variable for the IDMS-Traceable creatinine methods. https://jasn.asnjournals.org/content//ASN.91854 70307 Performed By: #### 2 4323-8 #### CE Ascencio (35508) [facility] ([facility]) [address] [place] [address] 82373 Glucose [Mass/Vol] 90 mg/dL Normal 74-99 [facility] Comment on above: Performed By: #### 2 4323-8 #### CE Ascencio (44341) [facility] ([facility]) [address] [place] [address] 70526 Potassium [Moles/Vol] 4.0 mmol/L Normal 3.5-5.3 [facility] Comment on above: Performed By: #### 2 4323-8 #### CE Ascencio (65470) [facility] ([facility]) [address] [place] [address] 20179 Protein [Mass/Vol] 7.4 g/dL Normal 6.4-8.2 [facility] Comment on above: Performed By: #### 2 4323-8 #### CE Ascencio (23262) [facility] ([facility]) [address] [place] [address] 94125 Sodium [Moles/Vol] 138 mmol/L Normal 136-145 [facility] Comment on above: Performed By: #### 2 4323-8 #### CE Ascencio (29743) [facility] ([facility]) [address] [place] [address] Urea nitrogen [Mass/Vol] 18 mg/dL Normal 6-23 [facility] Comment on above: Performed By: #### 2 4323-8 #### CE OSWALDER L (18357) [facility] ([facility]) [address] [place] [address] Magnesiumon 08-26-2023 Magnesium [Mass/Vol] 2.06 mg/dL Normal 1.60-2.40 [facility] Comment on above: Performed By: #### 1 9123-9 #### CE CAMPBELL L (74649) [facility] ([facility]) [address] [place] [address]90 TRANSTHORACIC ECHO (TTE) SHRESTHA ITEDon 08-14-2023 TRANSTHORACIC ECHO (TTE) [facility], [address] [place] [address], [address] [address] and TRANSTHORACIC ECHOCARDIOGRAM REPORT Patient Name: SARAH Nikita Physician: [id number] Savita ROCHA Study Date: 08/14/2023 Ordering Provider: [id number] OPAL MEDINA MRN/PID: [id number] Fellow: Nurse: Ela Hernandez RN Date of /Age: 11 1960 Superintendent Construction: Raine Kelly RDCS years Gender: M Additional Staff: Height: 172.72 cm Admit Date: Weight: 127.46 kg Admission Status: Outpatient BSA / BMI: 2.36 m2 / 42.73 kg/m2 Department Location: [facility] Blood Pressure: 125 /85 mmHg Study Type: TRANSTHORACIC ECHO (TTE) LIMITED Diagnosis/ICD: Syncope-R55 Indication: Syncope CPT Code: Echo Limited-20505; Doppler Limited-38227; Color Doppler-51884 Patient History: BMI: Obese >30 Pertinent History: [...] TAPSE: 20.2 mm RV s' 0.14 m/s 01995 Savita Vann MD Electronically signed on 08/14/2023 at 10:31:59 PM Final Normal [facility] Heart TransthoracicOrdere d By: Savita Vann on 08-14-2023 Aortic Valve Area by Continuity of Peak Velocity 3.03 cm2 [facility] Work Phone: [phone] AV pk grad 8.4 mmHg [facility] Work Phone: [phone] AV pk jabari 1.45 m/s [facility] Work Phone: [phone] LV A4C EF 65.7 [facility] Work Phone: [phone] LV Biplane EF 64 % [facility] Work Phone: [phone] LVOT diam 2.10 cm [facility] Work Phone: [phone] MV avg E/e' ratio 4.08 [facility] Work Phone: [phone] RV free wall pk S' 14.00 cm/s [facility] Work Phone: [phone] Tricuspid annular plane systolic excursion 2.0 cm [facility] Work Phone: [phone] [facility] Work Phone: [phone] Heart Transthoracicon [facility], [address] [place] [address], [address], [place], [place] [address] and TRANSTHORACIC ECHOCARDIOGRAM REPORT Patient Name: ILDEFONSO Shelton Physician: [id number] Savita Vann MD [facility] Study Date: 08/14/2023 Ordering Provider: [id number] OPAL MEDINA MRN/PID: [id number] Fellow: Nurse: Ela Hernandez RN Date of /Age: 11 1960 Superintendent Construction: Raine Kelly RDCS years Gender: M Additional Staff: Height: 172.72 cm Admit Date: Weight: 127.46 kg Admission Status: Outpatient BSA / BMI: 2.36 m2 / 42.73 kg/m2 Department Location: [facility] Blood Pressure: 125 /85 mmHg Study Type: TRANSTHORACIC ECHO (TTE) LIMITED Diagnosis/ICD: Syncope-R55 Indication: Syncope CPT Code: Echo Limited-47495; Doppler Limited-71404; Color Doppler-36385 Patient History: BMI: Obese >30 Pertinent History: [...] TAPSE: 20.2 mm RV s' 0.14 m/s 87780 Savita Vann MD Electronically signed on 08/14/2023 at 10:31:59 PM Final Savita Amanda MD - 08/14/2023 [facility], [address] [place] [address], [address] [address] and TRANSTHORACIC ECHOCARDIOGRAM REPORT Patient Name: ILDEFONSO Shelton Physician: [id number] Savita Vann MD [facility] Study Date: 08/14/2023 Ordering Provider: [id number] OPAL MEDINA MRN/PID: [id number] Fellow: Nurse: Ela Hernandez RN Date of /Age: 11 1960 / Superintendent Construction: Raine Kelly RDCS years Gender: M Additional Staff: Height: 172.72 cm Admit Date: Weight: 127.46 kg Admission Status: Outpatient BSA / BMI: 2.36 m2 / 42.73 kg/m2 Department Location: [facility] Blood Pressure: 125 /85 mmHg Study Type: TRANSTHORACIC ECHO (TTE) LIMITED Diagnosis/ICD: Syncope-R55 Indication: Syncope CPT Code: Echo Limited-04947; Doppler Limited-48261; Color Doppler-60605 Patient History: BMI: Obese >30 Pertinent History: [...] TAPSE: 20.2 mm RV s' 0.14 m/s 30176 Savita Vann MD Electronically signed on 08/14/2023 at 10:31:59 PM Final [facility] Work Phone: CBC panel Auto (Bld)on 07-01 Erythrocyte distribution width (RBC) [Ratio] 15.8 % High 11.5-14.5 [facility] Comment on above: Performed By: #### 5 8410-2 #### CE Ascencio (52712) [facility] ([facility]) [address] [place] [address] 26280 Hematocrit (Bld) [Volume fraction] 45.3 % Normal 41.0-52.0 [facility] Comment on above: Performed By: #### 5 8410-2 #### CE Ascencio (69775) [facility] ([facility]) [address] [place] [address] 19439 Hemoglobin (Bld) [Mass/Vol] 15.2 g/dL Normal 13.5-17.5 [facility] Comment on above: Performed By: #### 5 8410-2 #### CE Ascencio (61202) [facility] ([facility]) [address] [place] [address] 92705 MCH (RBC) [Entitic mass] 29.4 pg Normal 26.0-34.0 [facility] Comment on above: Performed By: #### 5 8410-2 #### CE Ascencio (41626) [facility] ([facility]) [address] [place] [address] 61342 MCHC (RBC) [Mass/Vol] 33.6 g/dL Normal 32.0-36.0 [facility] Comment on above: Performed By: #### 5 8410-2 #### CE Ascencio (88749) [facility] ([facility]) [address] [place] [address] 05858 MCV (RBC) [Entitic vol] 88 fL Normal 80-100 [facility] Comment on above: Performed By: #### 5 8410-2 #### CE Ascencio (09106) [facility] ([facility]) [address] [place] [address] 68217 Nucleated RBC/100 WBC (Bld) [Ratio] 0.0 /100 WBCs Normal 0.0-0.0 [facility] Comment on above: Performed By: #### 5 8410-2 #### CE Ascencio (57055) [facility] ([facility]) [address] [place] [address] 91732 Platelets (Bld) [#/Vol] 302 x10*3/uL Normal 150-450 [facility] Comment on above: Performed By: #### 5 8410-2 #### CE Ascencio (79446) [facility] ([facility]) [address] [place] [address] 30732 RBC (Bld) [#/Vol] 5.17 x10*6/uL Normal 4.50-5.90 [facility] Comment on above: Performed By: #### 5 8410-2 #### CE Ascencio (33781) [facility] ([facility]) [address] [place] [address] 89470 WBC (Bld) [#/Vol] 9.6 x10*3/uL Normal 4.4-11.3 [facility] Comment on above: Performed By: #### 5 8410-2 #### CE Ascencio (39252) [facility] ([facility]) [address] [place], [place] [address] Calcidiolon 07-01-2023 25-hydroxyvitamin D3 [Mass/Vol] 38 ng/mL Normal 30-100 [facility] Comment on above: Order Comment: Defic iency: < 20 ng/ml Insufficiency: 20-29 ng/ml Sufficiency: 30-100 ng/ml This assay accurately quantifies the sum of Vitamin D3, 25-Hydroxy and Vitamin D2,25-Hydroxy. Performed By: #### 1 989-3 #### CE Ascencio (27924) [facility] ([facility]) [address] [place], [place] [address] Comprehensive metabolic 2000 panelon 07-01-2023 Albumin BCP dye [Mass/Vol] 4.5 g/dL Normal 3.4-5.0 [facility] Comment on above: Performed By: #### 2 4323-8 #### EC Ascencio (16658) [facility] ([facility]) [address] [place] [address] 93929 ALP [Catalytic activity/Vol] 59 U/L Normal 33-136 [facility] Comment on above: Performed By: #### 2 4323-8 #### CE Ascencio (14601) [facility] ([facility]) [address] [place] [address] 12487 ALT With P-5'-P [Catalytic activity/Vol] 19 U/L Normal 10-52 [facility] Comment on above: Result Comment: Perla ents treated with Sulfasalazine may generate falsely decreased results for ALT. Performed By: #### 2 4323-8 #### CE Ascencio (82434) [facility] ([facility]) [address] [place] [address] 72408 Anion gap [Moles/Vol] 15 mmol/L Normal 10-20 [facility] Comment on above: Performed By: #### 2 4323-8 #### CE Ascencio (19252) [facility] ([facility]) [address] [place] [address] AST With P-5'-P [Catalytic activity/Vol] 12 U/L Normal 9-39 [facility] Comment on above: Performed By: #### 2 4323-8 #### CE Ascencio (52011) [facility] ([facility]) [address] [place] [address] Bilirubin [Mass/Vol] 0.4 mg/dL Normal 0.0-1.2 [facility] Comment on above: Performed By: #### 2 4323-8 #### CE Ascencio (91638) [facility] ([facility]) [address] [place] [address] 18863 Calcium [Mass/Vol] 10.2 mg/dL Normal 8.6-10.6 [facility] Comment on above: Performed By: #### 2 4323-8 #### CE Ascencio (64664) [facility] ([facility]) [address] [place] [address] 80728 Chloride [Moles/Vol] 101 mmol/L Normal 98-107 [facility] Comment on above: Performed By: #### 2 4323-8 #### CE Ascencio (07794) [facility] ([facility]) [address] [place] [address] 91331 CO2 [Moles/Vol] 28 mmol/L Normal 21-32 [facility] Comment on above: Performed By: #### 2 4323-8 #### CE Ascencio (27872) [facility] ([facility]) [address] [place] [address] Creatinine [Mass/Vol] 0.78 mg/dL Normal 0.50-1.30 [facility] Comment on above: Performed By: #### 2 4323-8 #### CE Ascencio (45763) [facility] ([facility]) [address] [place] [address] GFR/1.73 sq M.predicted MDRD (S/P/Bld) [Vol rate/Area] mL/min/{1.73_m2} Normal >60 [facility] Comment on above: Result Comment: Calc ulations of estimated GFR are performed using the 2020 CKD-EPI Study Refit equation without the race variable for the IDMS-Traceable creatinine methods. https://jasn.asnjournals.org/content//ASN.94069 16254 Performed By: #### 2 4323-8 #### CE Ascencio (82779) [facility] ([facility]) [address] [place] [address] 46080 Glucose [Mass/Vol] 116 mg/dL High 74-99 [facility] Comment on above: Performed By: #### 2 4323-8 #### CE Ascencio (42596) [facility] ([facility]) [address] [place] [address] Potassium [Moles/Vol] 4.2 mmol/L Normal 3.5-5.3 [facility] Comment on above: Performed By: #### 2 4323-8 #### CE Ascencio (12756) [facility] ([facility]) [address] [place] [address] 17651 Protein [Mass/Vol] 7.4 g/dL Normal 6.4-8.2 [facility] Comment on above: Performed By: #### 2 4323-8 #### CE CAMPBELL L (04901) [facility] ([facility]) [address] [place] [address] 21669 Sodium [Moles/Vol] 140 mmol/L Normal 136-145 [facility] Comment on above: Performed By: #### 2 4323-8 #### CE Ascencio (90156) [facility] ([facility]) [address] [place] [address] Urea nitrogen [Mass/Vol] 15 mg/dL Normal 6-23 [facility] Comment on above: Performed By: #### 2 4323-8 #### CE Ascencio (50052) [facility] ([facility]) [address] [place] [address] Lipid 1996 panelon 4 Cholesterol [Mass/Vol] 237 mg/dL High 0-199 [facility] Comment on above: Result Comment: [...] By: #### 2 4331-1 #### CE Ascencio (22470) [facility] ([facility]) [address] [place] [address] Cholesterol in HDL [Mass/Vol] 53.5 mg/dL Normal [facility] Comment on above: Result Comment: Age Very Low Low Normal High 0-19 Y < 35 < 40 40-45 ---- 20-24 Y ---- < 40 >45 ---- >24 Y ---- < 40 40-60 >60 Performed By: #### 2 4331-1 #### CE Ascencio (59065) [facility] ([facility]) [address] [place] [address] Cholesterol in LDL [Mass/Vol] 154 mg/dL High <=99 [facility] Comment on above: Result Comment: Near Borderline AGE Desirable Optimal High High Very High 0-19 Y 0 - 109 --- 110-129 >/= 130 ---- 20-24 Y 0 - 119 --- 120-159 >/= 160 ---- >24 Y 0 - 99 100-129 130-159 160-189 >/=190 Performed By: #### 2 4331-1 #### CE Ascencio (53522) [facility] ([facility]) [address] [place] [address] Cholesterol in VLDL [Mass/Vol] 29 mg/dL Normal 0-40 [facility] Comment on above: Performed By: #### 2 4331-1 #### CE Ascencio (85290) [facility] ([facility]) [address] [place] [address] CHOLESTEROL/HDL RATIO 4.4 Normal [facility] Comment on above: Result Comment: Ref Values Desirable < 3.4 High Risk > 5.0 Performed By: #### 2 4331-1 #### CE Ascencio (66737) [facility] ([facility]) [address] [place] [address] 66599 NON HDL CHOLESTEROL 184 mg/dL High 0-149 [facility] Comment on above: Result Comment: Age Desirable Borderline High High Very High 0-19 Y 0 - 119 120 - 144 >/= 145 >/= 160 20-24 Y 0 - 149 150 - 189 >/= 190 ---- >24 Y 30 mg/dL above LDL Cholesterol goal Performed By: #### 2 4331-1 #### CE Ascencio (90119) [facility] ([facility]) [address] [place] [address] 57230 Triglyceride [Mass/Vol] 147 mg/dL Normal 0-149 [facility] Comment on above: Result Comment: Age Desirable [...] By: #### 2 4331-1 #### CE Ascencio (62403) [facility] ([facility]) [address] [place] [address] TSH WITH REFLEX TO FREE T4 I F ABNORMALon 07-01-2023 TSH Qn 1.00 m[IU]/L Normal 0.44-3.98 [facility] Comment on above: Order Comment: TSH t esting is performed using different testing methodology at [facility] than at other [facility]. Direct result comparisons should only be made within the same method. Performed By: #### T CIRA #### CE Ascencio (26599) [facility] ([facility]) [address] [place], [place] [address] .Auto Diffon 01-16-2023 Basophil, Absolute 0.0 10 3/mcL Normal 0.0-0.2 [facility] ([place]) Comment on above: Performed By: #### A JEWEL, GFR, CBC, ADIFF, BMP #### [address] [address] Basophils/100 WBC (Bld) 0.3 % Normal 0.0-2.5 [facility] ([place]) Comment on above: Performed By: #### A JEWEL, GFR, CBC, ADIFF, BMP #### [address] [address] Eosinophil, Absolute 0.0 10 3/mcL Normal 0.0-0.4 [facility] ([place]) Comment on above: Performed By: #### A JEWEL, GFR, CBC, ADIFF, BMP #### [address] [address] Eosinophils/100 WBC (Bld) 0.2 % Normal 0.0-7.0 [facility] ([place]) Comment on above: Performed By: #### A JEWEL, GFR, CBC, ADIFF, BMP #### [address] [address] Lymphocyte, Absolute 3.0 10 3/mcL Normal 0.8-3.9 [facility] ([place]) Comment on above: Performed By: #### A JEWEL, GFR, CBC, ADIFF, BMP #### [address] [address] Lymphocytes/100 WBC (Bld) 18.9 % Normal 10.0-50.0 [facility] ([place]) Comment on above: Performed By: #### A JEWEL, GFR, CBC, ADIFF, BMP #### [address] [address] Monocyte, Absolute 1.8 10 3/mcL High 0.2-1.0 [facility] ([place]) Comment on above: Performed By: #### A JEWEL, GFR, CBC, ADIFF, BMP #### [address] [address] Monocytes/100 WBC (Bld) 11.4 % Normal 1.7-13.0 [facility] ([place]) Comment on above: Performed By: #### A JEWEL, GFR, CBC, ADIFF, BMP #### [address] [address] Neutrophils/100 WBC (Bld) 69.2 % Normal 37.0-80.0 [facility] ([place]) Comment on above: Performed By: #### A JEWEL, GFR, CBC, ADIFF, BMP #### [address] [address] .GFRon 01-16-2023 GFR 110 ml/min/1.73sqm Normal [facility] ([place]) Comment on above: Result Comment: GFR Population [...] A JEWEL, GFR, CBC, ADIFF, BMP #### [address] [address] GFR Non- 91 ml/min/1.73sqm Normal [facility] ([place]) Comment on above: Result Comment: GFR Population [...] A JEWEL, GFR, CBC, ADIFF, BMP #### [address] [address] .NEUABSon 01-16-2023 Neutrophil, Absolute 11.0 10 3/mcL High 2.9-6.2 [facility] ([place]) Comment on above: Performed By: #### A JEWEL, GFR, CBC, ADIFF, BMP #### [address] [address] BMPon 01-16-2023 BUN/Creatinine Ratio 23 ratio Normal 7-27 [facility] ([place]) Comment on above: Performed By: #### A JEWEL, GFR, CBC, ADIFF, BMP #### [address] [address] Calcium [Mass/Vol] 8.9 mg/dL Normal 8.4-10.2 [facility] ([place]) Comment on above: Performed By: #### A JEWEL, GFR, CBC, ADIFF, BMP #### [address] [address] Chloride [Moles/Vol] 107 mmol/L Normal 98-107 [facility] ([place] Comment on above: Performed By: #### A JEWEL, GFR, CBC, ADIFF, BMP #### [address] [address] CO2 [Moles/Vol] 27 mmol/L Normal 23-31 [facility] ([place]) Comment on above: Performed By: #### A JEWEL, GFR, CBC, ADIFF, BMP #### [address] [address] Creatinine [Mass/Vol] 0.86 mg/dL Normal 0.70-1.30 [facility] [place] Comment on above: Performed By: #### A JEWEL, GFR, CBC, ADIFF, BMP #### [address] [address] Electrolyte Balance 9.0 mEq/L Normal 4.0-15.0 [facility] ([place]) Comment on above: Performed By: #### A JEWEL, GFR, CBC, ADIFF, BMP #### [address] [address] Glucose [Mass/Vol] 104 mg/dL Normal 80-115 [facility] ([place]) Comment on above: Performed By: #### A JEWEL, GFR, CBC, ADIFF, BMP #### [address] [address] Potassium [Moles/Vol] 4.5 mmol/L Normal 3.5-5.1 [facility] [place] Comment on above: Performed By: #### A JEWEL, GFR, CBC, ADIFF, BMP #### [address] [address] Sodium [Moles/Vol] 143 mmol/L Normal 136-145 [facility] ([place] Comment on above: Performed By: #### A JEWEL, GFR, CBC, ADIFF, BMP #### [address] [address] Urea nitrogen [Mass/Vol] 20 mg/dL High 7-18 [facility] ([place]) Comment on above: Performed By: #### A JEWEL, GFR, CBC, ADIFF, BMP #### [address] [address] CBCon 01-16-2023 Erythrocyte distribution width (RBC) [Ratio] 15.0 % High 11.5-14.5 [facility] ([place]) Comment on above: Performed By: #### A JEWEL, GFR, CBC, ADIFF, BMP #### [place] [address] Hematocrit (Bld) [Volume fraction] 34.9 % Low 42.0-52.0 [facility] ([place]) Comment on above: Performed By: #### A JEWEL, GFR, CBC, ADIFF, BMP #### [address] [address] Hgb 11.9 G/dL Low 14.0-18.0 [facility] ([place] Comment on above: Performed By: #### A JEWEL, GFR, CBC, ADIFF, BMP #### [address] [address] MCH (RBC) [Entitic mass] 30.0 pg Normal 27.0-31.2 [facility] ([place]) Comment on above: Performed By: #### A JEWEL, GFR, CBC, ADIFF, BMP #### [address] [address] MCHC 34.1 G/dL Normal 31.8-35.4 [facility] ([place] Comment on above: Performed By: #### A JEWEL, GFR, CBC, ADIFF, BMP #### [address] [address] MCV (RBC) [Entitic vol] 88.0 fL Normal 80.0-94.0 [facility] ([place] Comment on above: Performed By: #### A JEWEL, GFR, CBC, ADIFF, BMP #### [address] [address] Platelet 264 10 3/mcL Normal 130-400 [facility] ([place] Comment on above: Performed By: #### A JEWEL, GFR, CBC, ADIFF, BMP #### [address] [address] Platelet mean volume (Bld) [Entitic vol] 7.7 fL Normal 7.4-10.4 [facility] ([place] Comment on above: Performed By: #### A JEWEL, GFR, CBC, ADIFF, BMP #### [address] [address] RBC 3.96 10 6/mcL Low 4.04-6.13 [facility] ([place] Comment on above: Performed By: #### A JEWEL, GFR, CBC, ADIFF, BMP #### [address] [address] WBC 15.9 10 3/mcL High 4.6-10.8 [facility] ([place] Comment on above: Performed By: #### A JEWEL, GFR, CBC, ADIFF, BMP #### [address] [address] LABORATORYOrdered By: SYSTEM SYSTEM on 01-16-2023 Basophil, [...] SS .GFRon 01-15-2023 GFR 93 ml/min/1.73sqm Normal [facility] ([place] Comment on above: Result Comment: GFR Population [...] Performed By: #### A NSG, ABOG #### [facility] [address] [place], [place] [address] #### BMP, GFR #### [address] [address] GFR Non- 77 ml/min/1.73sqm Normal [facility] ([place] Comment on above: Result Comment: GFR Population [...] Performed By: #### A NSG, ABOG #### Suzy [address] [place], [place] [address] #### BMP, GFR #### [address] [address] BMPon 01-15-2023 BUN/Creatinine Ratio 19 ratio Normal 7 [facility] ([place] Comment on above: Performed By: #### A NSG, ABOG #### [address] [place], [place] [address] #### BMP, GFR #### [address] [address] Calcium [Mass/Vol] 9.0 mg/dL Normal 8.4-10.2 [facility] ([place] Comment on above: Performed By: #### A NSG, ABOG #### [facility] [address] [place], [place] [address] #### BMP, GFR #### [address] [address] Chloride [Moles/Vol] 106 mmol/L Normal 98-107 [facility] ([place] Comment on above: Performed By: #### A NSG, ABOG #### [facility] [address] [place] [id number] #### BMP, GFR #### [place] [address] CO2 [Moles/Vol] 25 mmol/L Normal 23-31 [facility] ([place] Comment on above: Performed By: #### A NSG, ABOG #### [facility] [address] [place] [address] #### BMP, GFR #### [address] [address] Creatinine [Mass/Vol] 0.99 mg/dL Normal 0.70-1.30 [facility] [place] Comment on above: Performed By: #### A NSG, ABOG #### [facility] [address] [place] [id number] #### BMP, GFR #### [address] [address] Electrolyte Balance 12.0 mEq/L Normal 4.0-15.0 [facility] ([place]) Comment on above: Performed By: #### A NSG, ABOG #### [facility] [address] [place] [id number] #### BMP, GFR #### [address] [address] Glucose [Mass/Vol] 102 mg/dL Normal 80-115 [facility] ([place]) Comment on above: Performed By: #### A NSG, ABOG #### [facility] [address] [place], [place] [address] #### BMP, GFR #### [address] [address] Potassium [Moles/Vol] 4.1 mmol/L Normal 3.5-5.1 [facility] ([place]) Comment on above: Performed By: #### A NSG, ABOG #### Suzy [facility] [address] [place], [place] [address] #### BMP, GFR #### [address] [address] Sodium [Moles/Vol] 143 mmol/L Normal 136-145 [facility] ([place]) Comment on above: Performed By: #### A NSG, ABOG #### [place] [address] [place], [place] [address] #### BMP, GFR #### [address] [address] Urea nitrogen [Mass/Vol] 19 mg/dL High 7-18 [facility] ([place]) Comment on above: Performed By: #### A NSG, ABOG #### [address] [place], [place] [address] #### BMP, GFR #### [address] [address] Gel ABOon 01-15-2023 ABO/Rh Interp Positive Invalid Interpretation Code [facility] ([place]) Comment on above: Performed By: #### A NSG, ABOG #### [address] [place], [place] [address] #### BMP, GFR #### [address] [address] Gel ABSon 01-15-2023 Antibody Screen Gel Negative Normal [facility] ([place]) Comment on above: Performed By: #### A NSG, ABOG #### [address] [place], [place] [address] #### BMP, GFR #### [facility] [address] [place] [address] LABORATORYOrdered By: Dinora Reed on 01-15-2023 ABO/Rh [...] 01/15/2023 9:33:34 AM Ordering Provider: [facility] [place] KNEE W/O CONTRAST RIGHTon 01-07-2023 CT [...] to the intercondylar notch. Interpreted by: Garrick Casitllo DO Preliminary Report By: Garrick Castillo DO Electronically signed By Garrick Castillo DO Dictated Date: 01/07/2023 3:37:08 PM Prelim Date: 01/07/2023 3:41:18 PM Sign Date: 01/07/2023 3:41:18 PM Ordering Provider: GRICELDA Yepez [facility] ([place]) .Auto Diffon 12-17-2022 Basophil, Absolute 0.1 10 3/mcL Normal 0.0-0.2 [facility] [place] Comment on above: Performed By: #### A JEWEL, GFR, CBC, ADIFF, BMP #### [address] [place] [id number] [place], [place] [address] Basophils/100 WBC (Bld) 1.4 % Normal 0.0-2.5 [facility] [place] Comment on above: Performed By: #### A JEWEL, GFR, CBC, ADIFF, BMP #### [address] [address] Eosinophil, Absolute 0.3 10 3/mcL Normal 0.0-0.4 [facility] [place] Comment on above: Performed By: #### A JEWEL, GFR, CBC, ADIFF, BMP #### [address] [address] Eosinophils/100 WBC (Bld) 2.7 % Normal 0.0-7.0 [facility] [place] Comment on above: Performed By: #### A JEWEL, GFR, CBC, ADIFF, BMP #### [address] [address] Lymphocyte, Absolute 3.2 10 3/mcL Normal 0.8-3.9 [facility] [place] Comment on above: Performed By: #### A JEWEL, GFR, CBC, ADIFF, BMP #### [address] [address] Lymphocytes/100 WBC (Bld) 32.9 % Normal 10.0-50.0 [facility] [place] Comment on above: Performed By: #### A JEWEL, GFR, CBC, ADIFF, BMP #### [address] [address] Monocyte, Absolute 1.1 10 3/mcL High 0.2-1.0 [facility] [place] Comment on above: Performed By: #### A JEWEL, GFR, CBC, ADIFF, BMP #### [address] [address] Monocytes/100 WBC (Bld) 11.3 % Normal 1.7-13.0 [facility] [place] Comment on above: Performed By: #### A JEWEL, GFR, CBC, ADIFF, BMP #### [address] [address] Neutrophils/100 WBC (Bld) 51.7 % Normal 37.0-80.0 [facility] [place] Comment on above: Performed By: #### A JEWEL, GFR, CBC, ADIFF, BMP #### [address] [address] .GFRon 12-17-2022 GFR Non- 77 ml/min/1.73sqm Normal [facility] [place] Comment on above: Result Comment: GFR Population [...] A JEWEL, GFR, CBC, ADIFF, BMP #### [address] [address] GFR 93 ml/min/1.73sqm Normal [facility] [place] Comment on above: Result Comment: GFR Population [...] A JEWEL, GFR, CBC, ADIFF, BMP #### [address] [address] .NEUABSon 12-17-2022 Neutrophil, Absolute 5.1 10 3/mcL Normal 2.9-6.2 [facility] ([place]) Comment on above: Performed By: #### A JEWEL, GFR, CBC, ADIFF, BMP #### [address] [address] ALBon 12-17-2022 Albumin Level 4.0 G/dL Normal 3.4-4.8 [facility] [place] Comment on above: Performed By: #### A JEWEL, GFR, CBC, ADIFF, BMP #### [address] [address] BMPon 12-17-2022 BUN/Creatinine Ratio 17 ratio Normal 7-27 [facility] [place] Comment on above: Performed By: #### A JEWEL, GFR, CBC, ADIFF, BMP #### [address] [address] Calcium [Mass/Vol] 9.3 mg/dL Normal 8.4-10.2 [facility] ([place] Comment on above: Performed By: #### A JEWEL, GFR, CBC, ADIFF, BMP #### [address] [address] Chloride [Moles/Vol] 103 mmol/L Normal 98-107 [facility] [place] Comment on above: Performed By: #### A JEWEL, GFR, CBC, ADIFF, BMP #### [address] [address] CO2 [Moles/Vol] 29 mmol/L Normal 23-31 [facility] [place] Comment on above: Performed By: #### A JEWEL, GFR, CBC, ADIFF, BMP #### [address] [address] Creatinine [Mass/Vol] 0.99 mg/dL Normal 0.70-1.30 [facility] [place] Comment on [place]: Performed By: #### A JEWEL, GFR, CBC, ADIFF, BMP #### [address] [address] Electrolyte Balance 11.0 mEq/L Normal 4.0-15.0 [facility] ([place] Comment on above: Performed By: #### A JEWEL, GFR, CBC, ADIFF, BMP #### [address] [address] Glucose [Mass/Vol] 106 mg/dL Normal 80-115 [facility] [place] Comment on above: Performed By: #### A JEWEL, GFR, CBC, ADIFF, BMP #### [address] [address] Potassium [Moles/Vol] 3.2 mmol/L Low 3.5-5.1 [facility] [place] Comment on [place]: Performed By: #### A JEWEL, GFR, CBC, ADIFF, BMP #### [address] [address] Sodium [Moles/Vol] 143 mmol/L Normal 136-145 [facility] Comment on above: Performed By: #### A JEWEL, GFR, CBC, ADIFF, BMP #### [address] [address] Urea nitrogen [Mass/Vol] 17 mg/dL Normal 7-18 [facility] [place] Comment on above: Performed By: #### A JEWEL, GFR, CBC, ADIFF, BMP #### [address] [address] CBCon 12-17-2022 Erythrocyte distribution width (RBC) [Ratio] 16.0 % High 11.5-14.5 [facility] [place] Comment on above: Order Comment: Pre-A dmission Testing Performed By: #### A JEWEL, GFR, CBC, ADIFF, BMP #### [address] [address] Hematocrit (Bld) [Volume fraction] 44.3 % Normal 42.0-52.0 [facility] [place] Comment on above: Order Comment: Pre-A dmission Testing Performed By: #### A JEWEL, GFR, CBC, ADIFF, BMP #### [address] [address] Hgb 15.7 G/dL Normal 14.0-18.0 [facility] [place] Comment on above: Order Comment: Pre-A dmission Testing Performed By: #### A JEWEL, GFR, CBC, ADIFF, BMP #### [address] [address] MCH (RBC) [Entitic mass] 30.3 pg Normal 27.0-31.2 [facility] [place] Comment on above: Order Comment: Pre-A dmission Testing Performed By: #### A JEWEL, GFR, CBC, ADIFF, BMP #### [address] [address] MCHC 35.6 G/dL High 31.8-35.4 [facility] [place] Comment on above: Order Comment: Pre-A dmission Testing Performed By: #### A JEWEL, GFR, CBC, ADIFF, BMP #### [address] [address] MCV (RBC) [Entitic vol] 85.3 fL Normal 80.0-94.0 [facility] [place] Comment on above: Order Comment: Pre-A dmission Testing Performed By: #### A JEWEL, GFR, CBC, ADIFF, BMP #### [address] [address] Platelet 299 10 3/mcL Normal 130-400 [facility] [place] Comment on above: Order Comment: Pre-A dmission Testing Performed By: #### A JEWEL, GFR, CBC, ADIFF, BMP #### [address] [address] Platelet mean volume (Bld) [Entitic vol] 7.6 fL Normal 7.4-10.4 [facility] [place] Comment on above: Order Comment: Pre-A dmission Testing Performed By: #### A JEWEL, GFR, CBC, ADIFF, BMP #### [address] [address] RBC 5.19 10 6/mcL Normal 4.04-6.13 [facility] [place] Comment on above: Order Comment: Pre-A dmission Testing Performed By: #### A JEWEL, GFR, CBC, ADIFF, BMP #### [address] [place], [place] [address] WBC 9.8 10 3/mcL Normal 4.6-10.8 [facility] [place] Comment on above: Order Comment: Pre-A dmission Testing Performed By: #### A JEWEL, GFR, CBC, ADIFF, BMP #### [facility] [address] [place], [place] [address] LABORATORYOrdered By: SYSTEM SYSTEM on 12-17-2022 Albumin [...] Comment on above: Result Comment: [place] [id number] MRSA PCR Int MRSA DNA not detecte [...] MRSA (PCR) Not detected Normal Not Detected [facility] [place]) Comment on above: Result Comment: [place] [id number] Performed By: #### A JEWEL, GFR, CBC, ADIFF, BMP #### [address] [address] MRSA PCR Int Normal [facility] [place] Comment on above: Result Comment: MRSA DNA [...] A JEWEL, GFR, CBC, ADIFF, BMP #### [place] [address] .Auto Diffon 07-11-2022 Basophil, Absolute 0.0 10 3/mcL Normal 0.0-0.2 [facility] [place] Comment on above: Performed By: #### A JEWEL, GFR, CBC, ADIFF, BMP #### [place] [address] Basophils/100 WBC (Bld) 0.2 % Normal 0.0-2.5 [facility] [place] Comment on above: Performed By: #### A JEWEL, GFR, CBC, ADIFF, BMP #### [address] [address] Eosinophil, Absolute 0.0 10 3/mcL Normal 0.0-0.4 [facility] [place] Comment on above: Performed By: #### A JEWEL, GFR, CBC, ADIFF, BMP #### [address] [address] Eosinophils/100 WBC (Bld) 0.2 % Normal 0.0-7.0 [facility] [place] Comment on above: Performed By: #### A JEWEL, GFR, CBC, ADIFF, BMP #### [place] [address] [place], [place] [address] Lymphocyte, Absolute 2.2 10 3/mcL Normal 0.8-3.9 [facility] [place] Comment on above: Performed By: #### A JEWEL, GFR, CBC, ADIFF, BMP #### [address] [address] Lymphocytes/100 WBC (Bld) 14.3 % Normal 10.0-50.0 [facility] [place] Comment on above: Performed By: #### A JEWEL, GFR, CBC, ADIFF, BMP #### [address] [address] Monocyte, Absolute 1.7 10 3/mcL High 0.2-1.0 [facility] [place] Comment on above: Performed By: #### A JEWEL, GFR, CBC, ADIFF, BMP #### [address] [address] Monocytes/100 WBC (Bld) 10.8 % Normal 1.7-13.0 [facility] [place] Comment on above: Performed By: #### A JEWEL, GFR, CBC, ADIFF, BMP #### [address] [address] Neutrophils/100 WBC (Bld) 74.5 % Normal 37.0-80.0 [facility] [place] Comment on above: Performed By: #### A JEWEL, GFR, CBC, ADIFF, BMP #### [address] [address] .GFRon 07-11-2022 GFR 111 ml/min/1.73sqm Normal [facility] [place] Comment on above: Result Comment: GFR Population [...] A JEWEL, GFR, CBC, ADIFF, BMP #### [address] [address] GFR Non- 92 ml/min/1.73sqm Normal [facility] [place] Comment on above: Result Comment: GFR Population [...] A JEWEL, GFR, CBC, ADIFF, BMP #### [address] [address] .NEUABSon 07-11-2022 Neutrophil, Absolute 11.8 10 3/mcL High 2.9-6.2 [facility] ([place]) Comment on above: Performed By: #### A JEWEL, GFR, CBC, ADIFF, BMP #### [address] [address] BMPon 07-11-2022 BUN/Creatinine Ratio 21 ratio Normal 7-27 [facility] [place] Comment on above: Performed By: #### A JEWEL, GFR, CBC, ADIFF, BMP #### [address] [address] Calcium [Mass/Vol] 8.7 mg/dL Normal 8.4-10.2 [facility] ([place] Comment on above: Performed By: #### A JEWEL, GFR, CBC, ADIFF, BMP #### [address] [address] Chloride [Moles/Vol] 103 mmol/L Normal 98-107 [facility] ([place] Comment on above: Performed By: #### A JEWEL, GFR, CBC, ADIFF, BMP #### [address] [address] CO2 [Moles/Vol] 27 mmol/L Normal 23-31 [facility] [place] Comment on above: Performed By: #### A JEWEL, GFR, CBC, ADIFF, BMP #### [address] [address] Creatinine [Mass/Vol] 0.85 mg/dL Normal 0.70-1.30 [facility] [place] Comment on above: Performed By: #### A JEWEL, GFR, CBC, ADIFF, BMP #### [address] [address] Electrolyte Balance 7.0 mEq/L Normal 4.0-15.0 [facility] ([place] Comment on above: Performed By: #### A JEWEL, GFR, CBC, ADIFF, BMP #### [address] [address] Glucose [Mass/Vol] 127 mg/dL High 80-115 [facility] ([place] Comment on above: Performed By: #### A JEWEL, GFR, CBC, ADIFF, BMP #### [address] [address] Potassium [Moles/Vol] 3.7 mmol/L Normal 3.5-5.1 [facility] [place] Comment on above: Performed By: #### A JEWEL, GFR, CBC, ADIFF, BMP #### [address] [address] Sodium [Moles/Vol] 137 mmol/L Normal 136-145 [facility] ([place] Comment on above: Performed By: #### A JEWEL, GFR, CBC, ADIFF, BMP #### [address] [address] Urea nitrogen [Mass/Vol] 18 mg/dL Normal 7-18 [facility] [place] Comment on above: Performed By: #### A JEWEL, GFR, CBC, ADIFF, BMP #### [address] [address] CBCon 07-11-2022 Erythrocyte distribution width (RBC) [Ratio] 15.2 % High 11.5-14.5 [facility] ([place] Comment on above: Performed By: #### A JEWEL, GFR, CBC, ADIFF, BMP #### [address] [address] Hematocrit (Bld) [Volume fraction] 34.6 % Low 42.0-52.0 [facility] [place] Comment on above: Performed By: #### A JEWEL, GFR, CBC, ADIFF, BMP #### [place] [id number] Hgb 11.7 G/dL Low 14.0-18.0 [facility] ([place] Comment on above: Performed By: #### A JEWEL, GFR, CBC, ADIFF, BMP #### [address] [address] MCH (RBC) [Entitic mass] 30.0 pg Normal 27.0-31.2 [facility] [place] Comment on above: Performed By: #### A JEWEL, GFR, CBC, ADIFF, BMP #### [place] [address] MCHC 33.8 G/dL Normal 31.8-35.4 [facility] [place] Comment on above: Performed By: #### A JEWEL, GFR, CBC, ADIFF, BMP #### [address] [address] MCV (RBC) [Entitic vol] 88.9 fL Normal 80.0-94.0 [facility] ([place] Comment on above: Performed By: #### A JEWEL, GFR, CBC, ADIFF, BMP #### [place] [id number] Platelet 272 10 3/mcL Normal 130-400 [facility] ([place] Comment on above: Performed By: #### A JEWEL, GFR, CBC, ADIFF, BMP #### [address] [address] Platelet mean volume (Bld) [Entitic vol] 7.6 fL Normal 7.4-10.4 [facility] ([place] Comment on above: Performed By: #### A JEWEL, GFR, CBC, ADIFF, BMP #### [place] [address] RBC 3.89 10 6/mcL Low 4.04-6.13 [facility] ([place] Comment on above: Performed By: #### A JEWEL, GFR, CBC, ADIFF, BMP #### [place] [address] WBC 15.8 10 3/mcL High 4.6-10.8 [facility] ([place] Comment on above: Performed By: #### A JEWEL, GFR, CBC, ADIFF, BMP #### [address] [address] LABORATORYOrdered By: Dinora Reed on 07-11-2022 Basophil, Absolute 0.0 103/mcL [...] 07-10-2022 ABO/Rh Interp Positive Invalid Interpretation Code [facility] ([place] Comment on above: Performed By: #### A JEWEL, GFR, CBC, ADIFF, BMP #### [place] [address] [place], [place] [address] Gel ABSon 07-10-2022 Antibody Screen Gel Negative Normal [facility] ([place] Comment on above: Performed By: #### A JEWEL, GFR, CBC, ADIFF, BMP #### [address] [address] LABORATORYOrdered By: Jeannette Sampson on 07-10-2022 ABO/Rh [...] left total knee arthroplasty. 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 Over the last 2 weeks have you felt down, depressed or hopeless? (If yes, answer PHQ-9 below)No PHQ-2 #2. Over the last 2 weeks have you felt little interest or pleasure in doing things? (If yes, answer PHQ-9 below)Yes O2 [id number], (more content not included)... Normal [facility] PHQ-2 VITALSon 07-05-2022 Adult depression screening assessment No [facility] Work Phone: Adult depression screening assessment Yes [facility] Work Phone: .Auto Diffon 07-02-2022 Basophil, Absolute 0.1 10 3/mcL Normal 0.0-0.2 [facility] [place] Comment on above: Performed By: #### A JEWEL, GFR, CBC, ADIFF, BMP #### [address] [address] Basophils/100 WBC (Bld) 1.1 % Normal 0.0-2.5 [facility] ([place] Comment on above: Performed By: #### A JEWEL, GFR, CBC, ADIFF, BMP #### [address] [address] Eosinophil, Absolute 0.2 10 3/mcL Normal 0.0-0.4 [facility] ([place] Comment on above: Performed By: #### A JEWEL, GFR, CBC, ADIFF, BMP #### [address] [address] Eosinophils/100 WBC (Bld) 1.5 % Normal 0.0-7.0 [facility] ([place] Comment on above: Performed By: #### A JEWEL, GFR, CBC, ADIFF, BMP #### [address] [address] Lymphocyte, Absolute 2.8 10 3/mcL Normal 0.8-3.9 [facility] ([place] Comment on above: Performed By: #### A JEWEL, GFR, CBC, ADIFF, BMP #### [address] [address] Lymphocytes/100 WBC (Bld) 26.7 % Normal 10.0-50.0 [facility] ([place] Comment on above: Performed By: #### A JEWEL, GFR, CBC, ADIFF, BMP #### [address] [address] Monocyte, Absolute 1.0 10 3/mcL Normal 0.2-1.0 [facility] ([place] Comment on above: Performed By: #### A JEWEL, GFR, CBC, ADIFF, BMP #### [address] [address] Monocytes/100 WBC (Bld) 9.6 % Normal 1.7-13.0 [facility] ([place] Comment on above: Performed By: #### A JEWEL, GFR, CBC, ADIFF, BMP #### [address] [address] Neutrophils/100 WBC (Bld) 61.1 % Normal 37.0-80.0 [facility] ([place] Comment on above: Performed By: #### A JEWEL, GFR, CBC, ADIFF, BMP #### [address] [address] .GFRon 07-02-2022 GFR 127 ml/min/1.73sqm Normal [facility] ([place] Comment on above: Result Comment: GFR Population [...] A JEWEL, GFR, CBC, ADIFF, BMP #### [address] [address] GFR Non- 105 ml/min/1.73sqm Normal [facility] ([place] Comment on above: Result Comment: GFR Population [...] A JEWEL, GFR, CBC, ADIFF, BMP #### [address] [address] .NEUABSon 07-02-2022 Neutrophil, Absolute 6.4 10 3/mcL High 2.9-6.2 [facility] [place] Comment on above: Performed By: #### A JEWEL, GFR, CBC, ADIFF, BMP #### [address] [address] A1Con 07-02-2022 HbA1c (Bld) [Mass fraction] 5.8 % Normal 4.3-6.4 [facility] ([place] Comment on above: Performed By: #### A JEWEL, GFR, CBC, ADIFF, BMP #### [address] [address] ALBon 07-02-2022 Albumin Level 3.9 G/dL Normal 3.4-4.8 [facility] ([place] Comment on above: Performed By: #### A JEWEL, GFR, CBC, ADIFF, BMP #### [address] [address] BMPon 07-02-2022 BUN/Creatinine Ratio 25 ratio Normal 7-27 [facility] ([place] Comment on above: Performed By: #### A JEWEL, GFR, CBC, ADIFF, BMP #### [address] [address] Calcium [Mass/Vol] 9.4 mg/dL Normal 8.4-10.2 [facility] ([place] Comment on above: Performed By: #### A JEWEL, GFR, CBC, ADIFF, BMP #### [address] [address] Chloride [Moles/Vol] 103 mmol/L Normal 98-107 [facility] ([place] Comment on above: Performed By: #### A JEWEL, GFR, CBC, ADIFF, BMP #### [address] [address] CO2 [Moles/Vol] 27 mmol/L Normal 23-31 [facility] [place] Comment on above: Performed By: #### A JEWEL, GFR, CBC, ADIFF, BMP #### [address] [address] Creatinine [Mass/Vol] 0.76 mg/dL Normal 0.70-1.30 [facility] [place] Comment on above: Performed By: #### A JEWEL, GFR, CBC, ADIFF, BMP #### [address] [address] Electrolyte Balance 11.0 mEq/L Normal 4.0-15.0 [facility] ([place]) Comment on above: Performed By: #### A JEWEL, GFR, CBC, ADIFF, BMP #### [address] [address] Glucose [Mass/Vol] 97 mg/dL Normal 80-115 [facility] ([place] Comment on above: Performed By: #### A JEWEL, GFR, CBC, ADIFF, BMP #### [address] [address] Potassium [Moles/Vol] 3.8 mmol/L Normal 3.5-5.1 [facility] [place] Comment on above: Performed By: #### A JEWEL, GFR, CBC, ADIFF, BMP #### [address] [address] Sodium [Moles/Vol] 141 mmol/L Normal 136-145 [facility] ([place] Comment on above: Performed By: #### A JEWEL, GFR, CBC, ADIFF, BMP #### [address] [address] Urea nitrogen [Mass/Vol] 19 mg/dL High 7-18 [facility] ([place] Comment on above: Performed By: #### A JEWEL, GFR, CBC, ADIFF, BMP #### [address] [address] CBCon 07-02-2022 Erythrocyte distribution width (RBC) [Ratio] 15.2 % High 11.5-14.5 [facility] ([place]) Comment on above: Order Comment: Pre-A dmission Testing Performed By: #### A JEWEL, GFR, CBC, ADIFF, BMP #### [address] [address] Hematocrit (Bld) [Volume fraction] 41.7 % Low 42.0-52.0 [facility] ([place] Comment on above: Order Comment: Pre-A dmission Testing Performed By: #### A JEWEL, GFR, CBC, ADIFF, BMP #### [address] [address] Hgb 14.6 G/dL Normal 14.0-18.0 [facility] ([place] Comment on above: Order Comment: Pre-A dmission Testing Performed By: #### A JEWEL, GFR, CBC, ADIFF, BMP #### [address] [address] MCH (RBC) [Entitic mass] 30.8 pg Normal 27.0-31.2 [facility] ([place] Comment on above: Order Comment: Pre-A dmission Testing Performed By: #### A JEWEL, GFR, CBC, ADIFF, BMP #### [address] [address] MCHC 35.1 G/dL Normal 31.8-35.4 [facility] ([place] Comment on above: Order Comment: Pre-A dmission Testing Performed By: #### A JEWEL, GFR, CBC, ADIFF, BMP #### [address] [address] MCV (RBC) [Entitic vol] 87.7 fL Normal 80.0-94.0 [facility] ([place] Comment on above: Order Comment: Pre-A dmission Testing Performed By: #### A JEWEL, GFR, CBC, ADIFF, BMP #### [address] [address] Platelet 285 10 3/mcL Normal 130-400 [facility] ([place] Comment on above: Order Comment: Pre-A dmission Testing Performed By: #### A JEWEL, GFR, CBC, ADIFF, BMP #### [address] [address] Platelet mean volume (Bld) [Entitic vol] 7.6 fL Normal 7.4-10.4 [facility] ([place] Comment on above: Order Comment: Pre-A dmission Testing Performed By: #### A JEWEL, GFR, CBC, ADIFF, BMP #### [address] [address] RBC 4.75 10 6/mcL Normal 4.04-6.13 [facility] ([place] Comment on above: Order Comment: Pre-A dmission Testing Performed By: #### A JEWEL, GFR, CBC, ADIFF, BMP #### [address] [address] WBC 10.4 10 3/mcL Normal 4.6-10.8 [facility] ([place] Comment on above: Order Comment: Pre-A dmission Testing Performed By: #### A JEWEL, GFR, CBC, ADIFF, BMP #### [address] [address] [address] KNEE W/O CONTRAST LEFTon 07-02-2022 CT [...] degenerative changes are seen in the knee. Djby-hj-evhb arthropathy is identified in the medial tibiofemoral [...] Date: 07/02/2022 1:33:58 PM Ordering Provider: GRICELDA OLIVER Normal [facility] ([place]) Gel ABOon 07-02-2022 ABO/Rh Interp Positive Invalid Interpretation Code [facility]) Comment on above: Performed By: #### A JEWEL, GFR, CBC, ADIFF, BMP #### [place] [address] [place], [place] [address] Gel ABSon 07-02-2022 Antibody Screen Gel Negative Normal [facility]) Comment on above: Performed By: #### A JEWEL, GFR, CBC, ADIFF, BMP #### [address] [address] LABORATORYOrdered By: Jenny Carrington on 07-02-2022 ABO/Rh [...] disease. No acute findings. Interpreted by: Shyam Barrett MD Preliminary Report By: Shyam Barrett MD Electronically signed By Shyam Barrett MD Dictated Date: 05/31/2022 7:22:17 AM Prelim Date: 05/31/2022 7:23:13 AM Sign Date: 05/31/2022 7:23:13 AM Ordering Provider: ELISEO Yepez [facility] ([place]) .Auto Diffon 05-29-2022 Basophil, Absolute 0.2 10 3/mcL Normal 0.0-0.2 [facility] ([place] Comment on above: Performed By: #### A JEWEL, GFR, CBC, ADIFF, BMP #### [address] [address] Basophils/100 WBC (Bld) 2.0 % Normal 0.0-2.5 [facility] ([place] Comment on above: Performed By: #### A JEWEL, GFR, CBC, ADIFF, BMP #### [address] [address] Eosinophil, Absolute 0.3 10 3/mcL Normal 0.0-0.4 [facility] ([place]) Comment on above: Performed By: #### A JEWEL, GFR, CBC, ADIFF, BMP #### [address] [address] Eosinophils/100 WBC (Bld) 3.1 % Normal 0.0-7.0 [facility] ([place]) Comment on above: Performed By: #### A JEWEL, GFR, CBC, ADIFF, BMP #### [address] [address] Lymphocyte, Absolute 3.0 10 3/mcL Normal 0.8-3.9 [facility] ([place]) Comment on above: Performed By: #### A JEWEL, GFR, CBC, ADIFF, BMP #### [address] [address] Lymphocytes/100 WBC (Bld) 30.0 % Normal 10.0-50.0 [facility] ([place] Comment on above: Performed By: #### A JEWEL, GFR, CBC, ADIFF, BMP #### [address] [address] Monocyte, Absolute 1.1 10 3/mcL High 0.2-1.0 [facility] ([place]) Comment on above: Performed By: #### A JEWEL, GFR, CBC, ADIFF, BMP #### [address] [address] Monocytes/100 WBC (Bld) 10.4 % Normal 1.7-13.0 [facility] ([place]) Comment on above: Performed By: #### A JEWEL, GFR, CBC, ADIFF, BMP #### [address] [address] Neutrophils/100 WBC (Bld) 54.5 % Normal 37.0-80.0 [facility] ([place] Comment on above: Performed By: #### A JEWEL, GFR, CBC, ADIFF, BMP #### [address] [address] .GFRon 05-29-2022 GFR 106 ml/min/1.73sqm Normal [facility] ([place] Comment on above: Result Comment: GFR Population [...] A JEWEL, GFR, CBC, ADIFF, BMP #### [address] [address] GFR Non- 87 ml/min/1.73sqm Normal [facility] ([place]) Comment on above: Result Comment: GFR Population [...] A JEWEL, GFR, CBC, ADIFF, BMP #### [address] [address] .NEUABSon 05-29-2022 Neutrophil, Absolute 5.5 10 3/mcL Normal 2.9-6.2 [facility] ([place]) Comment on above: Performed By: #### A JEWEL, GFR, CBC, ADIFF, BMP #### [address] [address] APTTon 05-29-2022 aPTT Coag (Bld) [Time] 32.1 s Normal 24.1-34.9 [facility] ([place]) Comment on above: Result Comment: For Heparin anticoagulation therapy, the recommended therapeutic range is: 46.2-75.9 seconds (1.5 - 2.5 the normal plasma mean). Patients on heparin therapy may have an extreme result. Performed By: #### A JEWEL, GFR, CBC, ADIFF, BMP #### [address] [address] Heparin dose (APTT) Unknown Normal [facility] ([place]) Comment on above: Performed By: #### A JEWEL, GFR, CBC, ADIFF, BMP #### [address] [address] BMPon 05-29-2022 BUN/Creatinine Ratio 22 ratio Normal 7-27 [facility] ([place]) Comment on above: Performed By: #### B MP, CBC, ANEU, ADIFF, GFR, PRO, APTT #### [address] [address] Calcium [Mass/Vol] 9.8 mg/dL Normal 8.4-10.2 [facility] ([place]) Comment on above: Performed By: #### B MP, CBC, ANEU, ADIFF, GFR, PRO, APTT #### [address] [address] Chloride [Moles/Vol] 103 mmol/L Normal 98-107 [facility] ([place] Comment on above: Performed By: #### B MP, CBC, ANEU, ADIFF, GFR, PRO, APTT #### [address] [address] CO2 [Moles/Vol] 28 mmol/L Normal 23-31 [facility] ([place]) Comment on above: Performed By: #### B MP, CBC, ANEU, ADIFF, GFR, PRO, APTT #### [address] [address] Creatinine [Mass/Vol] 0.89 mg/dL Normal 0.70-1.30 [facility] [place] Comment [place]: Performed By: #### B MP, CBC, ANEU, ADIFF, GFR, PRO, APTT #### [address] [address] Electrolyte Balance 8.0 mEq/L Normal 4.0-15.0 [facility] ([place] Comment on above: Performed By: #### B MP, CBC, ANEU, ADIFF, GFR, PRO, APTT #### [address] [address] Glucose [Mass/Vol] 95 mg/dL Normal 80-115 [facility] ([place] Comment on above: Performed By: #### B MP, CBC, ANEU, ADIFF, GFR, PRO, APTT #### [address] [address] Potassium [Moles/Vol] 3.9 mmol/L Normal 3.5-5.1 [facility] [place]: Performed By: #### B MP, CBC, ANEU, ADIFF, GFR, PRO, APTT #### [address] [address] Sodium [Moles/Vol] 139 mmol/L Normal 136-145 [facility] [place] Comment on above: Performed By: #### B MP, CBC, ANEU, ADIFF, GFR, PRO, APTT #### [address] [address] Urea nitrogen [Mass/Vol] 20 mg/dL High 7-18 [facility] ([place] Comment on above: Performed By: #### B MP, CBC, ANEU, ADIFF, GFR, PRO, APTT #### [place] [address] CBCon 05-29-2022 Erythrocyte distribution width (RBC) [Ratio] 15.2 % High 11.5-14.5 [facility] ([place] Comment on above: Performed By: #### A JEWEL, GFR, CBC, ADIFF, BMP #### [place] [address] Hematocrit (Bld) [Volume fraction] 43.3 % Normal 42.0-52.0 [facility] ([place] Comment on above: Performed By: #### A JEWEL, GFR, CBC, ADIFF, BMP #### [place] [address] Hgb 15.1 G/dL Normal 14.0-18.0 [facility] ([place] Comment on above: Performed By: #### A JEWEL, GFR, CBC, ADIFF, BMP #### [place] [address] MCH (RBC) [Entitic mass] 30.2 pg Normal 27.0-31.2 [facility] ([place] Comment on above: Performed By: #### A JEWEL, GFR, CBC, ADIFF, BMP #### [place] [address] MCHC 34.8 G/dL Normal 31.8-35.4 [facility] ([place] Comment on above: Performed By: #### A JEWEL, GFR, CBC, ADIFF, BMP #### [place] [address] MCV (RBC) [Entitic vol] 87.0 fL Normal 80.0-94.0 [facility] ([place] Comment on above: Performed By: #### A JEWEL, GFR, CBC, ADIFF, BMP #### [place] [address] Platelet 311 10 3/mcL Normal 130-400 [facility] ([place] Comment on above: Performed By: #### A JEWEL, GFR, CBC, ADIFF, BMP #### [address] [address] Platelet mean volume (Bld) [Entitic vol] 7.2 fL Low 7.4-10.4 [facility] ([place] Comment on above: Performed By: #### A JEWEL, GFR, CBC, ADIFF, BMP #### [address] [address] RBC 4.98 10 6/mcL Normal 4.04-6.13 [facility] ([place] Comment on above: Performed By: #### A JEWEL, GFR, CBC, ADIFF, BMP #### [address] [address] WBC 10.1 10 3/mcL Normal 4.6-10.8 [facility] ([place] Comment on above: Performed By: #### A JEWEL, GFR, CBC, ADIFF, BMP #### [address] [address] PROon 05-29-2022 INR Coag (PPP) [Relative time] 1.1 {INR} Normal 0.9-1.2 [facility] ([place]) Comment on above: Result Comment: Constantin dard [...] A JEWEL, GFR, CBC, ADIFF, BMP #### [address] [address] PT Coag (PPP) [Time] 12.3 s Normal 9.7-13.9 [facility] ([place] Comment on above: Performed By: #### A JEWEL, GFR, CBC, ADIFF, BMP #### [address] [address] Office Visiton 05-25-2022 Follow-up visit Diagnoses/Problems Arthritis [...] daily [facility] Discussion[facility] Provider Impressions 1 [...] these surgeons which will be done at [facility]. Dr Gricelda Oliver for his knees and Dr Eliseo Braxton for his spine. Both are at : [phone] [facility] [address] [facility] [address] fax [phone] Review of Systems Patient has severe chronic [...] May 2020 (more content not included)... Normal [facility] Office Visit (Allergy/Immuno logy)on 05-25-2022 Follow-up visit [...] may re-assess you and develop a more fpc plan.1 1 Amended By: Martinez Oh; May 25 2022 1:09 PM ESTChief Complaint [...] in the past. 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 Normal [employer] PHQ-2 VITALSon 05-25-2022 Adult depression screening assessment No [facility] Work Phone: CBCon 05-18-2022 Erythrocyte distribution width (RBC) [Ratio] 15.1 % High 11.5 - 14.5 [facility] Comment on above: Performed By: #### C BC #### [facility] [address] [place] [address] Hematocrit (Bld) [Volume fraction] 46.3 % Normal 41.0 - 52.0 [facility] Comment on above: Performed By: #### C BC #### [facility] [address] [place] [address] Hemoglobin (Bld) [Mass/Vol] 15.5 g/dL Normal 13.5 - 17.5 [facility] Comment on above: Performed By: #### C BC #### [facility] [address] [place] [address] MCHC (RBC) [Mass/Vol] 33.5 g/dL Normal 32.0 - 36.0 [facility] Comment on above: Performed By: #### C BC #### [facility] [address] [place] [address] MCV (RBC) [Entitic vol] 89 fL Normal 80 - 100 [facility] Comment on above: Performed By: #### C BC #### [facility] [address] [place] [address] NUCLEATED RBC 0.0 /100 WBC Normal 0.0-0.0 [facility] [place] Comment on above: Performed By: #### C BC #### [facility] [address] [place] [address] Platelets (Bld) [#/Vol] 308 10*3/uL Normal 150 - 450 [facility] Comment on above: Performed By: #### C BC #### [facility] [address] [place] [address] RBC 5.19 x10E12/L Normal 4.50 - 5.90 [facility] Comment on above: Performed By: #### C BC #### [facility] [address] [place] [address] WBC (Bld) [#/Vol] 10.3 10*3/uL Normal 4.4 - 11.3 [facility] Comment on above: Performed By: #### C BC #### [facility] [address] [place] [address] COMPREHENSIVE PANELon 2022 Albumin [Mass/Vol] 4.7 g/dL Normal 3.4 - 5.0 [facility] Comment on above: Performed By: #### C MP #### [facility] [address] [place] [address] ALP [Catalytic activity/Vol] 52 U/L Normal 33 - 136 [facility] Comment on above: Performed By: #### C MP #### [facility] [address] [place] [address] ALT [Catalytic activity/Vol] 21 U/L Normal 10 - 52 [facility] Comment on above: Result Comment: Perla ents treated with Sulfasalazine may generate falsely decreased results for ALT. Performed By: #### C MP #### [facility] [address] [place] [address] Anion gap [Moles/Vol] 15 mmol/L Normal 10 - 20 [facility] Comment on above: Performed By: #### C MP #### [facility] [address] [place] [address] AST [Catalytic activity/Vol] 14 U/L Normal 9 - 39 [facility] Comment on above: Performed By: #### C MP #### [facility] [address] [place] [address] Bilirubin [Mass/Vol] 0.4 mg/dL Normal 0.0 - 1.2 [facility] Comment on above: Performed By: #### C MP #### [facility] [address] [place] [address] Calcium [Mass/Vol] 9.7 mg/dL Normal 8.6 - 10.6 [facility] Comment on above: Performed By: #### C MP #### [facility] [address] [place] [address] Chloride [Moles/Vol] 103 mmol/L Normal 98 - 107 [facility] Comment on above: Performed By: #### C MP #### [facility] [address] [place] [address] Creatinine [Mass/Vol] 0.93 mg/dL Normal 0.50 - 1.30 [facility] Comment on above: Performed By: #### C MP #### [facility] [address] [place] [address] eGFR MALE >90 Normal >90 [facility] Comment on above: Result Comment: CALC ULATIONS OF ESTIMATED GFR ARE PERFORMED USING THE 2020 CKD-EPI STUDY REFIT EQUATION WITHOUT THE RACE VARIABLE FOR THE IDMS-TRACEABLE CREATININE METHODS. https://jasn.asnjournals.org/content//ASN.48762 [address] Performed By: #### C MP #### [facility] [address] [place] [address] Glucose [Mass/Vol] 106 mg/dL High 74 - 99 [facility] Comment on above: Performed By: #### C MP #### [facility] [address] [place] [address] HCO3 (Bld) [Moles/Vol] 28 mmol/L Normal 21 - 32 [facility] Comment on above: Performed By: #### C MP #### [facility] [address] [place] [address] Potassium [Moles/Vol] 4.0 mmol/L Normal 3.5 - 5.3 [facility] Comment on above: Performed By: #### C MP #### [facility] [address] [place] [address] Protein [Mass/Vol] 7.3 g/dL Normal 6.4 - 8.2 [facility] Comment on above: Performed By: #### C MP #### [facility] [address] [place] [address] Sodium [Moles/Vol] 142 mmol/L Normal 136 - 145 [facility] Comment on above: Performed By: #### C MP #### [facility] [address] [place] [address] Urea nitrogen [Mass/Vol] 24 mg/dL High 6 - 23 [facility] Comment on above: Performed By: #### C MP #### [facility] [address] [place] [address] LIPID PANEL (CORONARY RISK 2 )on 05-18-2022 Cholesterol [Mass/Vol] 191 mg/dL Normal 0 - 199 [facility] Comment on above: Result Comment: . AGE [...] dosing. Performed By: #### L IPID #### [facility] [address] [place] [address] Cholesterol in HDL [Mass/Vol] 43.4 mg/dL Normal [facility] Comment on above: Result Comment: . AGE VERY LOW LOW NORMAL HIGH 0-19 Y < 35 < 40 40-45 ---- 20-24 Y ---- < 40 >45 ---- >24 Y ---- < 40 40-60 >60 . Performed By: #### L IPID #### [facility] [address] [place] [address] Cholesterol in LDL [Mass/Vol] 131 mg/dL High 0 - 99 [facility] Comment on above: Result Comment: . NEAR BORD AGE DESIRABLE OPTIMAL HIGH HIGH VERY HIGH 0-19 Y 0 - 109 --- 110-129 >/= 130 ---- 20-24 Y 0 - 119 --- 120-159 >/= 160 ---- >24 Y 0 - 99 100-129 130-159 160-189 >/=190 . Performed By: #### L IPID #### [facility] [address] [place] [address] Cholesterol in VLDL [Mass/Vol] 16 mg/dL Normal 0 - 40 [facility] Comment on above: Performed By: #### L IPID #### [facility] [address] [place] [address] Cholesterol.total/Chol esterol in HDL [Mass ratio] 4.4 {ratio} Normal [facility] Comment on above: Result Comment: REF VALUES DESIRABLE < 3.4 HIGH RISK > 5.0 Performed By: #### L IPID #### [facility] [address] [place] [address] Triglyceride [Mass/Vol] 82 mg/dL Normal 0 - 149 [facility] Comment on above: Result Comment: . AGE [...] Performed By: #### L IPID #### [facility] [address] [place] [address] Laboratory - Chemistry and C hemistry - challengeon 05-18-2022 Albumin BCP dye [Mass/Vol] 4.7 g/dL 3.4 - 5.0 [facility] Work Phone: ALP [Catalytic activity/Vol] 52 U/L 33 - 136 [facility] Work Phone: ALT With P-5'-P [Catalytic activity/Vol] 21 U/L 10 - 52 [facility] Work Phone: Comment on above: Patients treated wit h Sulfasalazine may generate falsely decreased results for ALT. Anion gap [Moles/Vol] 15 mmol/L 10 - 20 - [facility] Work Phone: AST With P-5'-P [Catalytic activity/Vol] 14 U/L 9 - 39 [facility] Work Phone: Bilirubin [Mass/Vol] 0.4 mg/dL 0.0 - 1.2 [facility] Work Phone: Calcium [Mass/Vol] 9.7 mg/dL 8.6 - 10.6 [facility] Work Phone: Chloride [Moles/Vol] 103 mmol/L 98 - 107 [facility] Work Phone: CO2 [Moles/Vol] 28 mmol/L 21 - 32 -[employer] [facility] Work Phone: Creatinine [Mass/Vol] 0.93 mg/dL See Below [facility] Work Phone: Comment on above: Reference Range: 0.5 0 - 1.30 Glucose [Mass/Vol] 106 mg/dL above high threshold 74 - 99 [facility] Work Phone: Potassium [Moles/Vol] 4.0 mmol/L 3.5 - 5.3 [facility] Work Phone: Protein [Mass/Vol] 7.3 g/dL 6.4 - 8.2 [facility] Work Phone: Sodium [Moles/Vol] 142 mmol/L 136 - 145 [facility] Work Phone: TSH Qn 1.04 m[IU]/L See Below [facility] Work Phone: Comment on above: Reference Range: 0.4 4 - 3.98 TSH testing is performed using different testing methodology at [facility] than at other [facility]. Direct result comparisons should only be made within the same method. Urea nitrogen [Mass/Vol] 24 mg/dL above high threshold 6 - 23 [facility] Work Phone: Laboratory - Hematology and Cell countson 05-18-2022 Erythrocyte distribution width (RBC) [Ratio] 15.1 % above high threshold See Below [facility] Work Phone: Comment on above: Reference Range: 11. 5 - 14.5 Hematocrit (Bld) [Volume fraction] 46.3 % See Below [facility] Work Phone: Comment on above: Reference Range: 41. 0 - 52.0 Hemoglobin (Bld) [Mass/Vol] 15.5 g/dL See Below [facility] Work Phone: Comment on above: Reference Range: 13. 5 - 17.5 MCHC (RBC) [Mass/Vol] 33.5 g/dL See Below [facility] Work Phone: Comment on above: Reference Range: 32. 0 - 36.0 MCV (RBC) [Entitic vol] 89 fL 80 - 100 [facility] Work Phone: Platelets (Bld) [#/Vol] 308 10*3/uL 150 - 450 [facility] Work Phone: RBC (Bld) [#/Vol] 5.19 {x10E12/L} See Below [facility] Work Phone: Comment on above: Reference Range: 4.5 0 - 5.90 WBC (Bld) [#/Vol] 10.3 10*3/uL 4.4 - 11.3 [facility] Work Phone: Lipid Panelon 05-18-2022 Cholesterol [Mass/Vol] 191 mg/dL 0 - 199 [facility] Work Phone: Comment on [...] dosing. Cholesterol in HDL [Mass/Vol] 43.4 mg/dL [facility] [employer] Work Phone: Comment on above: . AGE VERY LOW LOW N ORMAL HIGH 0-19 Y < 35 < 40 40-45 ---- 20-24 Y ---- < 40 >45 ---- >24 Y ---- < 40 40-60 >60. Cholesterol in LDL [Mass/Vol] 131 mg/dL above high threshold 0 - 99 [facility] Work Phone: Comment on above: . NEAR BORD AGE IGNACIO RABLE OPTIMAL HIGH HIGH VERY HIGH 0-19 Y 0 - 109 --- 110-129 >/= 130 ---- 20-24 Y 0 - 119 --- 120-159 >/= 160 ---- >24 Y 0 - 99 100-129 130-159 160-189 >/=190. Cholesterol.total/Chol esterol in HDL [Mass ratio] 4.4 {ratio} [facility] Work Phone: Comment on above: REF VALUESDESIRABLE < 3.4HIGH RISK > 5.0 Triglyceride [Mass/Vol] 82 mg/dL 0 - 149 [facility] [employer] Work Phone: Comment on above: . AGE [...] Lipid Panel 16 mg/dL 0 - 40 [facility] Work Phone: No Panel Informationon 05-18 >90 >90 [facility] Work Phone: Comment on above: CALCULATIONS OF TMA MATED GFR ARE PERFORMED USING THE 2020 CKD-EPI STUDY REFIT EQUATION WITHOUT THE RACE VARIABLE FOR THE IDMS-TRACEABLE CREATININE METHODS.https://jasn.asnjournals.org/content/early//A SN.0407042843 0.0 {/100_WBC} 0.0-0.0 [facility] Work Phone: TSH WITH REFLEX TO FREE T4 I F ABNORMALon 05-18-2022 TSH Qn 1.04 m[IU]/L Normal 0.44 - 3.98 [facility] Comment on above: Result Comment: TSH testing is performed using different testing methodology at [facility] than at other [facility]. Direct result comparisons should only be made within the same method. Performed By: #### T HYDS #### [facility] [address] [place] [address] VITAMIN D, 25-HYDROXYon VITAMIN D, 25-HYDROXY 61 ng/mL Normal [facility] Comment on above: Result Comment: . DEFICIENCY: < 20 NG/ML INSUFFICIENCY: 20-29 NG/ML SUFFICIENCY: 30-100 NG/ML THIS ASSAY ACCURATELY QUANTIFIES THE SUM OF VITAMIN D3, 25-HYDROXY AND VIT D2,25-HYDROXY. Performed By: #### V TDOH #### [facility] [address] [place] [address] Vitamin D 25-Hydroxyon 05-18 25-hydroxyvitamin D3 [Mass/Vol] 61 ng/mL [facility] Work Phone: Comment on above: [...] seen. No stenosis. Paraspinal musculature: Normal. 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, most prominently T12-L1 [...] 05/09/2022 12:52:17 PM Ordering Provider: ELISEO Yepez [facility] ([place]) .Auto Diffon 04-27-2022 Basophil, Absolute 0.1 10 3/mcL Normal 0.0-0.2 [facility] ([place] Comment on above: Performed By: #### A JEWEL, GFR, CBC, ADIFF, BMP #### [address] [address] Basophils/100 WBC (Bld) 0.9 % Normal 0.0-2.5 [facility] ([place] Comment on above: Performed By: #### A JEWEL, GFR, CBC, ADIFF, BMP #### [address] [address] Eosinophil, Absolute 0.3 10 3/mcL Normal 0.0-0.4 [facility] ([place] Comment on above: Performed By: #### A JEWEL, GFR, CBC, ADIFF, BMP #### [address] [address] Eosinophils/100 WBC (Bld) 2.8 % Normal 0.0-7.0 [facility] ([place] Comment on above: Performed By: #### A JEWEL, GFR, CBC, ADIFF, BMP #### [address] [address] Lymphocyte, Absolute 2.7 10 3/mcL Normal 0.8-3.9 [facility] ([place] Comment on above: Performed By: #### A JEWEL, GFR, CBC, ADIFF, BMP #### [address] [address] Lymphocytes/100 WBC (Bld) 21.7 % Normal 10.0-50.0 [facility] ([place] Comment on above: Performed By: #### A JEWEL, GFR, CBC, ADIFF, BMP #### [address] [address] Monocyte, Absolute 1.1 10 3/mcL High 0.2-1.0 [facility] ([place] Comment on above: Performed By: #### A JEWEL, GFR, CBC, ADIFF, BMP #### [address] [address] Monocytes/100 WBC (Bld) 8.6 % Normal 1.7-13.0 [facility] ([place] Comment on above: Performed By: #### A JEWEL, GFR, CBC, ADIFF, BMP #### [address] [address] Neutrophils/100 WBC (Bld) 66.0 % Normal 37.0-80.0 [facility] ([place] Comment on above: Performed By: #### A JEWEL, GFR, CBC, ADIFF, BMP #### [address] [address] .GFRon 04-27-2022 GFR 107 ml/min/1.73sqm Normal [facility] ([place] Comment on above: Result Comment: GFR Population [...] A JEWEL, GFR, CBC, ADIFF, BMP #### [address] [address] GFR Non- 88 ml/min/1.73sqm Normal [facility] ([place] Comment on above: Result Comment: GFR Population [...] A JEWEL, GFR, CBC, ADIFF, BMP #### [address] [address] .NEUABSon 04-27-2022 Neutrophil, Absolute 8.1 10 3/mcL High 2.9-6.2 [facility] ([place] Comment on above: Performed By: #### A JEWEL, GFR, CBC, ADIFF, BMP #### [address] [address] ALBon 04-27-2022 Albumin Level 3.9 G/dL Normal 3.4-4.8 [facility] ([place] Comment on above: Performed By: #### A JEWEL, GFR, CBC, ADIFF, BMP #### [address] [address] [facility] BUN/Creatinine Ratio 24 ratio Normal 7-27 [facility] ([place] Comment on above: Performed By: #### A JEWEL, GFR, CBC, ADIFF, BMP #### [address] [address] Calcium [Mass/Vol] 9.2 mg/dL Normal 8.4-10.2 [facility] ([place] Comment on above: Performed By: #### A JEWEL, GFR, CBC, ADIFF, BMP #### [address] [address] Chloride [Moles/Vol] 106 mmol/L Normal 98-107 [facility] ([place] Comment on above: Performed By: #### A JEWEL, GFR, CBC, ADIFF, BMP #### [address] [address] CO2 [Moles/Vol] 29 mmol/L Normal 23-31 [facility] ([place] Comment on above: Performed By: #### A JEWEL, GFR, CBC, ADIFF, BMP #### [address] [address] Creatinine [Mass/Vol] 0.88 mg/dL Normal 0.70-1.30 [facility] [place] Comment on above: Performed By: #### A JEWEL, GFR, CBC, ADIFF, BMP #### [address] [address] Electrolyte Balance 8.0 mEq/L Normal 4.0-15.0 [facility] ([place]) Comment on above: Performed By: #### A JEWEL, GFR, CBC, ADIFF, BMP #### [address] [address] Glucose [Mass/Vol] 115 mg/dL Normal 80-115 [facility] ([place] Comment on above: Performed By: #### A JEWEL, GFR, CBC, ADIFF, BMP #### [address] [address] Potassium [Moles/Vol] 4.4 mmol/L Normal 3.5-5.1 [facility] [place] Comment on above: Performed By: #### A JEWEL, GFR, CBC, ADIFF, BMP #### [address] [address] Sodium [Moles/Vol] 143 mmol/L Normal 136-145 [facility] ([place] Comment on above: Performed By: #### A JEWEL, GFR, CBC, ADIFF, BMP #### [place] [id number] Urea nitrogen [Mass/Vol] 21 mg/dL High 7-18 [facility] ([place] Comment on above: Performed By: #### A JEWEL, GFR, CBC, ADIFF, BMP #### [address] [address] CBCon 04-27-2022 Erythrocyte distribution width (RBC) [Ratio] 15.8 % High 11.5-14.5 [facility] ([place] Comment on above: Performed By: #### A JEWEL, GFR, CBC, ADIFF, BMP #### [address] [address] Hematocrit (Bld) [Volume fraction] 43.2 % Normal 42.0-52.0 [facility] ([place] Comment on above: Performed By: #### A JEWEL, GFR, CBC, ADIFF, BMP #### [address] [address] Hgb 14.9 G/dL Normal 14.0-18.0 [facility] ([place] Comment on above: Performed By: #### A JEWEL, GFR, CBC, ADIFF, BMP #### [address] [address] MCH (RBC) [Entitic mass] 30.4 pg Normal 27.0-31.2 [facility] ([place] Comment on above: Performed By: #### A JEWEL, GFR, CBC, ADIFF, BMP #### [address] [address] MCHC 34.4 G/dL Normal 31.8-35.4 [facility] ([place] Comment on above: Performed By: #### A JEWEL, GFR, CBC, ADIFF, BMP #### [address] [address] MCV (RBC) [Entitic vol] 88.3 fL Normal 80.0-94.0 [facility] ([place] Comment on above: Performed By: #### A JEWEL, GFR, CBC, ADIFF, BMP #### [address] [address] Platelet 281 10 3/mcL Normal 130-400 [facility] ([place] Comment on above: Performed By: #### A JEWEL, GFR, CBC, ADIFF, BMP #### [address] [address] Platelet mean volume (Bld) [Entitic vol] 7.8 fL Normal 7.4-10.4 [facility] ([place] Comment on above: Performed By: #### A JEWEL, GFR, CBC, ADIFF, BMP #### [address] [address] RBC 4.89 10 6/mcL Normal 4.04-6.13 [facility] ([place] Comment on above: Performed By: #### A JEWEL, GFR, CBC, ADIFF, BMP #### [address] [address] WBC 12.3 10 3/mcL High 4.6-10.8 [facility] ([place] Comment on above: Performed By: #### A JEWEL, GFR, CBC, ADIFF, BMP #### [address] [address] No Panel Informationon 03-30 Please click on [...] History of (more content not included)... Normal [employer] PHQ-2 [facility] 03-30-2022 Adult depression screening assessment No [facility] [...] with right-sided sciatica. COMPARISON: None. ACCESSION NUMBER(S): [id number] ORDERING CLINICIAN: OPAL MEDINA FINDINGS: Lumbar spine, multiple views There is moderate multilevel disc space narrowing osteophytosis throughout the lumbar spine worse at L1-L2. Moderate facet disease lower lumbar spine. There is no fracture. There is no spondylolisthesis IMPRESSION: Moderate facet disease lower lumbar spine. 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 Normal [facility] BILATERAL KNEE; COMPLT, 4 OR MORE VIEWSon 10-13-2021 BILATERAL KNEE; COMPLT, 4 OR MORE VIEWS Patient Name: ILDEFONSO ROCHA STUDY: BILATERAL KNEE; COMPLT, 4 OR MORE VIEWS; 10/13/2021 10:20 am INDICATION: pain M17.0: Arthritis of both knees. COMPARISON: 09/29/2019 ACCESSION NUMBER(S): [id number] ORDERING CLINICIAN: GRICELDA GUARDADO FINDINGS: Bilateral knees, four views There is severe joint space narrowing with sclerosis and osteophytosis the medial compartments bilaterally. Bilateral genu varum. Mild degenerative change the lateral and patellofemoral compartments as well. 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 Occasional alcohol use [...] times daily PRN Vitamin D 50 MCG (1999 UT) Oral CapsuleTAKE 1 CAPSULE Daily Signatures Electronically signed by : Gricelda Guardado MD; Oct 13 2021 10:35AM EST (Author) [facility] Radiologyon 10-13-2021 XR Knee 4 Views Please click on the link to view the study images Normal MG-Orthopaed [facility] Work Phone: XR Knee 4 Views Normal MG-Orthop aed [facility] 130 DO Work Phone: XR Knee 1 or 2 Views Please click on the link to view the study images Normal [facility]Orthopaed [facility] Work Phone: Established Visit (Orthopaed ic Surgery)on 07-14-2021 Established Visit (Orthopaedic Surgery) Diagnoses/Problems Assessed Arthritis of both knees (956.96) (M17.0) Chief Complaint FUV Bilateral knee injection [...] years Daily caffeinated coffee consumption 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 Normal [facility] Visiton 07-14-2021 Follow-up visit Diagnoses/Problems Cellulitis [...] Keflex and Bactrim(Generic) F/u with Dr Scott [facility] [phone] Must be seen next week. f/u Dr [...] for hospital follow-up. Patient was admitted to [facility] on June 24 and discharged June [...] day sm (more content not included)... Normal [facility] LABORATORYOrdered By: Deandre Aragon on 06-27-2021 Creatinine [...] Culture Wound Deep Panel Culture results pending. [facility] Work Phone: GS No organisms seen. [facility] Work Phone: LABORATORYOrdered By: Ela Garcia [...] Routine cultures are held for 5 days. [facility] Work Phone: Microscopic examination of blood, culture Culture has been received in lab and is no growth to date. Routine cultures are held for 5 days. [facility] Work Phone: BASIC METABOLIC PANELon 05-2 Anion gap [Moles/Vol] 10 mmol/L Normal 10 - 20 [facility] Comment on above: Performed By: #### B MP #### [address] [address] Calcium [Mass/Vol] 8.9 mg/dL Normal 8.6 - 10.3 [facility] Comment on above: Performed By: #### B MP #### [facility] [address] [place] [address] Chloride [Moles/Vol] 104 mmol/L Normal 98 - 107 [facility] Comment on above: Performed By: #### B MP #### [address] [address] Creatinine [Mass/Vol] 0.91 mg/dL Normal 0.50 - 1.30 [facility] Comment on above: Performed By: #### B MP #### [address] [address] GFR- AM. >60 Normal >60 [facility] Comment on above: Result Comment: CALC ULATIONS OF ESTIMATED GFR ARE PERFORMED USING THE MDRD STUDY EQUATION FOR THE IDMS-TRACEABLE CREATININE METHODS. CLIN CHEM 2007;53:766-72 Performed By: #### B MP #### [address] [address] GFR-NON AM. >60 Normal >60 [facility] Comment on above: Performed By: #### B MP #### [address] [address] Glucose [Mass/Vol] 82 mg/dL Normal 74 - 99 [facility] Comment on above: Performed By: #### B MP #### [address] [address] HCO3 (Bld) [Moles/Vol] 27 mmol/L Normal 21 - 32 [facility] Comment on above: Performed By: #### B MP #### [address] [address] Potassium [Moles/Vol] 3.5 mmol/L Normal 3.5 - 5.3 [facility] Comment on above: Performed By: #### B MP #### [address] [address] Sodium [Moles/Vol] 137 mmol/L Normal 136 - 145 [facility] Comment on above: Performed By: #### B MP #### [address] [address] Urea nitrogen [Mass/Vol] 17 mg/dL Normal 6 - 23 [facility] Comment on above: Performed By: #### B MP #### [address] [address] History and Physical - Surgi cirilo Update [...] the procedure: yes Signatures/Attestation/C ertification: Note Completion: AJCKLYN StatementI am solely responsible for all documentation captured within this clinical document, including critical care time, if applicable. The attending physician signature below is only for admission certification purposes. Attending Provider Inpatient Certification StatementObservation patient/other outpatient visits Electronic Signatures: Monica Earl) (Signed 06-Oct-2019 15:51) Authored: History & Physical Reviewed, Signatures/Attestation/C ertification Last Updated: 06-Oct-2019 15:51 by Monica Earl) [facility] MISCELLANEOUS CULT./SM.BACT. on 10-06-2019 MISCELLANEOUS CULT./SM.BACT. PATIENT: ILDEFONSO ROCHA LOCATION: [facility] BILL#: [id number] : 64 AGE: SEX: M ORDERED BY: MONICA EARL SOURCE: [facility] [place] COLLECTED: 10/06/19 15:26 ANTIBIOTICS AT [place].: RECEIVED [...] DOSE DEPENDENT NS=NONSUSCEPTIBLE X=REPORTED IN ERROR Normal [facility] Comment on above: Performed By: #### [facility] #### [facility] [address] [place] [address] Operative Reports - [place] 10-06-2019 Operative Reports - [place] PROCEDURE: Incision and drainage of right hemiscrotal [...] Monica Earl MD EST EST DICTATION NUMBER: [id number] INTERNAL JOB NUMBER: [id number] Electronic Signatures: Monica Earl) (Signed on 13-Oct-2019 15:03) Authored Unsigned, Draft (SYS GENERATED) (Entered on 06-Oct-2019 16:54) Entered Last Updated: 13-Oct-2019 15:03 by Monica Earl) [facility] Histologyon 10-06-2019 [place] [facility] Name ILDEFONSO ROCHA Pathologist: JEROME LYON [...] and hospital number and sebaceous cyst from scrotum, is a single fragment of skin and underlying tissue measuring 2.7 x 1.2 x 1.2 cm. The skin surface is wrinkled but appears unremarkable. There are multiple hairs present. The specimen is serially sectioned to reveal an intact cyst demonstrating red to singh/brown gelatinous material and pus measuring 0.5 x 0.5 cm and 0.5 cm in length. Vascular Ultrasound Technician sections are submitted in one cassette. [facility]/10/06/2019 [facility] Comment on above: Performed By: #### P #### [facility] [address] [place] [id number] Preop Checkliston 10-06-2019 Preop Checklist Preop Checklist: Preop Checklist: Arrival [id number] Arrival Time12:42 Procedure Typeabcess removal NPO [id number] 00:00 ID Band Onyes Allergy Bandno known [...] Communication: Language / CommunicationEnglish Electronic Signatures: Anayeli Coles) (Signed 06-Oct-2019 12:43) Authored: Preop Checklist Last Updated: 06-Oct-2019 12:43 by Anayeli Coles) [facility] Patient Profile - Preop v2on 10-02-2019 Patient Profile - Preop v2 Profile: Initial Info: How to be AddressedChris(1) Spoken Language PreferredEnglish (1) Source of Informationpatient Stated Reason for Admissionabcess removal Primary Contact Name and Numbersee facesheet Patient Belongingsremains with patient Patient Belongings Remaining with Patientcash/credit card; clothing; cell phone/electronics Medications Brought to Hospitalno Are you currently using the Personal Electronic Health Record or BeckonCallSeamBLiSSno (1) Are you interested in learning more about BeckonCallSeamBLiSS for the management of your healthnot at this time Instructions Givenappropriate clothing, bring responsible adult as the driver supervisor (procedure may be cancelled if no driver supervisor), center location, remove jewerly/piercings, time to arrive, arrival time of 1330 for 1430 no am meds Prep Instructions Reviewedyes Prep Typeper office Instructed to Have No Fluids Aftermidnight General Health: Blood Avoidance/Restrictionsno ne Weight in kg137.5 kilogram(s) Weight in qgi121.1 pound(s) Weight Methodstated Height in cm177.8 centimeter(s) Height in feet5 feet Height in inch(es) Height Methodstated BMI (kg/m2)43.494 square meter [...] Learning Preferencesverbal instruction Cultural Considerationsnone Developmental Considerationsnone Anabaptist Considerationsnone Other learner availableno [place] RiskPatient location auto qualifies him/her for HIGH RISK. Are there any cultural, spiritual, worship practices/values/needs that are important for us to knowno Do you want a visit/item from [facility] Would you like your Delivery Crew Worker/Industrial Sales Manager notifiedno Pain Scalenumerical 0-10 Pain Scale Educationteaching provided Current Pain Level0 = None Acceptable Pain Level0 = None Chronic Painno Information Review: Allergies, Home Meds and Significant Events have been Reviewed and Verified with Patient/Familyyes Allergy, Intolerance, Adverse Event: Allergies: No Known Allergies: Active Electronic Signatures: Anayeli Coles (SANA) (Signed 06-Oct-2019 12:46) Authored: Profile, Additional Information Nile Savage) (Signed 02-Oct-2019 12:54) Authored: Liset, Additional Information Last Updated: 06-Oct-2019 12:46 by Anayeli Coles (SANA) References: 1. Data Referenced From Patient Profile - Preop v2 05-Sep-2018 10:21 Normal [facility] Otheron 09-25-2019 XR Chest 2 views Interpreted by: SARAN BONILLA09/25/19 11:39MRN: [id number] Name: ILDEFONSO ROCHA STUDY:TH CHEST 2 VIEW [...] signed by: SARAN BONILLA 09/25/19 11:39 [facility] Work Phone: CRP, High Sensitivityon 09-10 CRP High sensitivity method [Mass/Vol] 18.3 mg/L Abnormal [facility] Work Phone: Comment on above: hsCRP INTERPRETATION mg/L < 1.0 LOW RELATIVE RISK OF CVD 1.0-3.0 AVERAGE RELATIVE RISK OF CVD > 3.0 HIGH RELATIVE RISK OF CVD Source:CHELSEY T. A. et al. CIRCULATION 2003;107:499-511. Complete Blood Count + [facility] 09-21-2019 Basophils/100 WBC (Bld) 1.3 % 0.0 - 2.0 [facility] Work Phone: Eosinophils (Bld) [#/Vol] 0.38 {x10E9/L} See Below [facility] Work Phone: Comment on above: Reference Range: 0.0 0 - 0.70 Eosinophils/100 WBC (Bld) 2.8 % 0.0 - 6.0 [facility] Work Phone: Erythrocyte distribution width (RBC) [Ratio] 14.6 % above high threshold See Below [facility] Work Phone: Comment on above: Reference Range: 11. 5 - 14.5 Hematocrit (Bld) [Volume fraction] 46.0 % See Below [facility] Work Phone: Comment on above: Reference Range: 41. 0 - 52.0 Hemoglobin (Bld) [Mass/Vol] 15.9 g/dL See Below [facility] Work Phone: Comment on above: Reference Range: 13. 5 - 17.5 Lymphocytes (Bld) [#/Vol] 4.03 {x10E9/L} See Below [facility] Work Phone: Comment on above: Reference Range: 1.2 0 - 4.80 Lymphocytes/100 WBC (Bld) 30.0 % See Below [facility] Work Phone: Comment on above: Reference Range: 13. 0 - 44.0 MCHC (RBC) [Mass/Vol] 34.6 g/dL See Below [facility] Work Phone: Comment on above: Reference Range: 32. 0 - 36.0 MCV (RBC) [Entitic vol] 88 fL 80 - 100 [facility] Work Phone: Monocytes (Bld) [#/Vol] 1.38 {x10E9/L} above high threshold See Below [facility] Work Phone: Comment on above: Reference Range: 0.1 0 - 1.00 Monocytes/100 WBC (Bld) 10.3 % 2.0 - 10.0 [facility] Work Phone: Neutrophils (Bld) [#/Vol] 7.40 {x10E9/L} See Below [facility] Work Phone: Comment on above: Reference Range: 1.2 0 - 7.70 Neutrophils/100 WBC (Bld) 55.1 % See Below [facility] Work Phone: Comment on above: Reference Range: 40. 0 - 80.0 Platelets (Bld) [#/Vol] 281 {x10E9/L} 150 - 450 [facility] Work Phone: RBC (Bld) [#/Vol] 5.25 {x10E12/L} See Below [facility] Work Phone: Comment on above: Reference Range: 4.5 0 - 5.90 WBC (Bld) [#/Vol] 13.4 {x10E9/L} above high threshold 4.4 - 11.3 [facility] Work Phone: WBC (Bld) [#/Vol] 0.0 {/100_WBC} 0.0-0.0 [facility] Work Phone: Complete Blood Count + Differential 0.5 % 0.0 - 0.9 [facility] Work Phone: Comment on above: Immature Granulocyte Count (IG) includes promyelocytes, myelocytes and metamyelocytes but does not include bands. Percent differential counts (%) should be interpreted in the context of the absolute cell counts (cells/L). Complete Blood Count + Differential 0.17 {x10E9/L} above high threshold See Below [facility] Work Phone: Comment on above: Reference Range: 0.0 0 - 0.10 Hematologyon 05-25-2019 Hematocrit (Bld) [Volume fraction] 44.5 % See Below [facility] Work Phone: Comment on above: Reference Range: 41. 0 - 52.0 Hemoglobin (Bld) [Mass/Vol] 15.1 g/dL See Below [facility] Work Phone: Comment on above: Reference Range: 13. 5 - 17.5 MCV (RBC) [Entitic vol] 88 fL 80 - 100 [facility] Work Phone: Platelets (Bld) [#/Vol] 252 {x10E9/L} 150 - 450 [facility] Work Phone: RBC (Bld) [#/Vol] 5.08 {x10E12/L} See Below [facility] Work Phone: Comment on above: Reference Range: 4.5 0 - 5.90 WBC (Bld) [#/Vol] 0.0 {/100_WBC} 0.0-0.0 [facility] Work Phone: WBC (Bld) [#/Vol] 11.5 {x10E9/L} above high threshold 4.4 - 11.3 [facility] Work Phone: Lipid Panelon 05-25-2019 Cholesterol [Mass/Vol] 161 mg/dL 0 - 199 [facility] [employer] Work Phone: Comment on above: . AGE [...] dosing. Cholesterol in HDL [Mass/Vol] 45.1 mg/dL [facility] [employer] Work Phone: Comment on above: . AGE VERY LOW LOW N ORMAL HIGH 0-19 Y < 35 < 40 40-45 ---- 20-24 Y ---- < 40 >45 ---- >24 Y ---- < 40 40-60 >60. Cholesterol in LDL [Mass/Vol] 97 mg/dL 0 - 99 [facility] [employer] Work Phone: Comment on above: . NEAR BORD AGE IGNACIO RABLE OPTIMAL HIGH HIGH VERY HIGH 0-19 Y 0 - 109 --- 110-129 >/= 130 ---- 20-24 Y 0 - 119 --- 120-159 >/= 160 ---- >24 Y 0 - 99 100-129 130-159 160-189 >/=190. Cholesterol.total/Chol esterol in HDL [Mass ratio] 3.6 {ratio} [facility] Work Phone: Comment on above: REF VALUESDESIRABLE < 3.4HIGH RISK > 5.0 Triglyceride [Mass/Vol] 97 mg/dL 0 - 149 [facility] Work Phone: Comment on [...] Lipid Panel 19 mg/dL 0 - 40 [facility] Work Phone: Metabolic Panelon 05-25-2019 ALP [Catalytic activity/Vol] 58 U/L 33 - 120 [facility] Work Phone: Anion gap [Moles/Vol] 15 mmol/L 10 - 20 [facility] Work Phone: Bilirubin [Mass/Vol] 0.4 mg/dL 0.0 - 1.2 -I [facility]ternal [facility] Work Phone: Calcium [Mass/Vol] 9.6 mg/dL 8.6 - 10.6 [facility] Work Phone: Chloride [Moles/Vol] 103 mmol/L 98 - 107 [facility] Work Phone: CO2 [Moles/Vol] 25 mmol/L 21 - 32 -Door Repairer Bus al [facility] Work Phone: Creatinine [Mass/Vol] 1.02 mg/dL See Below [facility] Work Phone: Comment on above: Reference Range: 0.5 0 - 1.30 Glucose [Mass/Vol] 92 mg/dL 74 - 99 [facility] Work Phone: Potassium [Moles/Vol] 4.0 mmol/L 3.5 - 5.3 [facility] Work Phone: Protein [Mass/Vol] 6.9 g/dL 6.4 - 8.2 [facility] Work Phone: Sodium [Moles/Vol] 139 mmol/L 136 - [address] [place] Work Phone: Urea nitrogen [Mass/Vol] 17 mg/dL 6 - 23 [facility] Work Phone: Otheron 05-25-2019 Albumin BCP dye [Mass/Vol] 4.1 g/dL 3.4 - 5.0 [facility] Work Phone: ALT With P-5'-P [Catalytic activity/Vol] 24 U/L 10 - 52 [facility] Work Phone: Comment on above: Patients treated wit h Sulfasalazine may generate falsely decreased results for ALT. AST With P-5'-P [Catalytic activity/Vol] 15 U/L 9 - 39 [facility] Work Phone: Erythrocyte distribution width (RBC) [Ratio] 14.9 % above high threshold See Below [facility] Work Phone: Comment on above: Reference Range: 11. 5 - 14.5 MCHC (RBC) [Mass/Vol] 33.9 g/dL See Below [facility] Work Phone: Comment on above: Reference Range: 32. 0 - 36.0 >60 >60 [facility] Work Phone: Comment on above: CALCULATIONS OF TAM MATED GFR ARE PERFORMED USING THE MDRD STUDY EQUATION FOR THE IDMS-TRACEABLE CREATININE METHODS. CLIN CHEM 2007;53:766-72 Thyroidon 05-25-2019 TSH Qn 1.59 {mIU/L} See Below [facility] Work Phone: Comment on above: Reference Range: 0.4 4 - 3.98 TSH testing is performed using different testing methodology at [facility] than at other [facility]. Direct result comparisons should only be made within the same method.. Patients receiving more than 5 mg/day of biotin may have interference in test results. A sample should be taken no sooner than eight hours after previous dose. Contact [phone] for additional information. Vitamin D 25-Hydroxyon 05-25 Calcidiol [Mass/Vol] 33 ng/mL -I [facility] Work Phone: Comment on above: .DEFICIENCY: < 20 NG /MLINSUFFICIENCY: 20-29 NG/MLOPTIMUM LEVEL: 30-80 NG/MLPOSSIBLE TOXICITY: > 80 NG/MLTHIS ASSAY ACCURATELY QUANTIFIES THE SUM OFVITAMIN D3, 25-HYDROXY AND VIT D2,25-HYDROXY. [facility] 09-08-2018 [facility] Name ILDEFONSO ROCHA Pathologist: ANA GARCIA MD Date of Procedure: 09/08/2018 Date Received: 09/08/2018 Date Reported 09/10/2018 Submitting Physician: CURT SOUSA MD Location: [facility] Copy To/Referring/Attending: CURT SOUSA MD Other External [...] cm. The specimen consists of portions of sinhg soft tissue and fecal material 1.5 x 0.5 x 0.2 cm in aggregate. The specimen is submitted in toto in one cassette. jmj/09/09/2018 Normal [facility] History and Physical - Surge ry > [...] Updated: 08-Sep-2018 12:33 by Curt Sousa) Normal [facility] Preop Checkliston 09-08-2018 Preop Checklist Preop Checklist: Preop Checklist: Arrival [id number] Arrival Time10:52 Procedure TypeColonoscopy NPO [id number] 18:00 ID Band Onyes Allergy Bandno known allergies Consent Signedyes H&P Completepending Anesthesia Assessment Completedpending EKG Performedyes Chest X-Ray Performednot ordered HCG Urine TestN/A Chlorhexadine Bath Givennot applicable Hair Washednot applicable Soap and water bath with hair shampoo the night before surgerynot applicable SCD's Appliednot applicable CHARITO Hose Appliednot ordered Dentureswith pt Prostheticsnot applicable [...] Communication: Language / CommunicationEnglish Electronic Signatures: Vane Oh) (Signed 08-Sep-2018 11:30) Authored: Preop Checklist Last Updated: 08-Sep-2018 11:30 by Vane Oh (SANA) Normal [facility] Patient Profile - Preop v2on 09-05-2018 Protein mass conc Profile: Initial Info: How to be AddressedChris Spoken Language PreferredEnglish Source of Informationpatient Are you currently using the Personal Electronic Health Record or BeckonCallCAREno Are you interested in learning more about [employer] for the management of your healthyes, information provided Stated Reason for AdmissionColonoscopy Primary Contact Name and NumberDgriselda Whaley - [phone], Father, he will be back at 1300 Patient Belongingsremains with patient Medications Brought to Hospitalno General Health: Weight in kg129.2 kilogram(s) Weight in iek445 pound(s) Weight Methodstated Height in cm177.8 centimeter(s) Height in feet5 feet Height in pojcfw86 inch(es) Height Methodstated BMI (kg/m2)40.869 square meter [...] Transitionnone Lives Withparent(s) Living Arrangementshouse Anticipated [facility] Substance: Current or Former Substance Use never: [...] Learning Preferencesskill demonstration Cultural Considerationsnone Developmental Considerationsnone Anabaptist Considerationsnone Other learner availableno [place] RiskPatient location auto qualifies him/her for HIGH RISK. Are there any cultural, spiritual, worship practices/values/needs that are important for us to knowno Pain Scalenumerical 0-10 Pain Scale Educationteaching provided Current Pain Level0 = None Acceptable Pain Level5 = Moderate Expression of Pain (nonverbal)none Lifestyle Changes/Adaptations in Response to Painno change Barriers to Reporting Painnone Chronic Painno Information Review: Allergies, Home Meds and Significant Events have been Reviewed and Verified with Patient/Familyyes Electronic Signatures: Vane Oh (RN) (Signed 08-Sep-2018 11:35) Authored: Profile, Additional Information Barbara Farmer) (Signed 05-Sep-2018 10:45) Authored: Profile Last Updated: 08-Sep-2018 11:35 by Vane Oh (SANA) Normal [facility] Sleep Lab Reporton 9 Sleep Lab Report [facility] SLEEP DISORDER LABORATORY NAME: ILDEFONSO ROCHA [facility] REC #: [id number] DATE OF : 1960 DATE OF SERVICE: 07/05/2018 ROOM: REFERRING PHYSICIAN: OPAL MEDINA MD STUDY TYPE: Split night polysomnogram. HISTORY OF CHIEF COMPLAINT: This is a 58-year-old male with a BMI of 44.48, who has a history of hypertension, asthma and COPD. He complains of restless sleep, snoring and witnessed apneas. His Sanford Scale score prior to the test was [...] Sharona Vick DO SLEEP DISORDER LABORATORY Job: [id number] Electronic Signatures: Fallon Vick (DO) (Signed on 09-Jul-2018 13:14) Authored Impregnator Helper, [facility] (Non-Affiliated) (Entered on 09-Jul-2018 12:55) Entered Last Updated: 09-Jul-2018 13:14 by Fallon Vick (DO) [facility] Vital Signs Date Time Vital Sign Value Performing Clinician Facility 12-09-2024 13:01-0400 Body temperature 98.4 [degF] Dr. Pamela Hernandez MD Work Phone: [facility] 12-09-2024 13:01-0400 Diastolic blood pressure 76 mm[Hg] Dr. Pamela Hernandez MD Work Phone: [facility] 12-09-2024 13:01-0400 Heart rate 84 /min Dr. Pamela Hernandez MD Work Phone: [facility] 12-09-2024 13:01-0400 Respiratory rate 17 /min Dr. Pamela Hernandez MD Work Phone: [facility] 12-09-2024 13:01-0400 SaO2% (BldA) [Mass fraction] 100 % Dr. Pamela Hernandez MD Work Phone: [facility] 12-09-2024 13:01-0400 Systolic blood pressure 132 mm[Hg] Dr. Pamela Hernandez MD Work Phone: [facility] 12-09-2024 10:18-0400 Body height 177.[address] Pamela Hernandez MD Work Phone: [facility] 12-09-2024 10:18-0400 Body mass index (BMI) [Ratio] 40.9 kg/m2 Dr. Pamela Hernandez MD Work Phone: [facility] 12-09-2024 10:18-0400 Body weight 129.[address] Pamela Hernandez MD Work Phone: [facility] 11-30-2024 12:48-0400 Body temperature 97.9 [degF] Dr. Pamela Hernandez MD Work Phone: [facility] 11-30-2024 12:48-0400 Body weight 131.[address] Pamela Hernandez MD Work Phone: [facility] 11-30-2024 12:48-0400 Diastolic blood pressure 98 mm[Hg] Dr. Pamela Hernandez MD Work Phone: [facility] 11-30-2024 12:48-0400 Heart rate 92 /min Dr. Pamela Hernandez MD Work Phone: [facility] 11-30-2024 12:48-0400 Respiratory rate 18 /min Dr. Pamela Hernandez MD Work Phone: [facility] 11-30-2024 12:48-0400 SaO2% (BldA) [Mass fraction] 96 % Dr. Pamela Hernandez MD Work Phone: [facility] 11-30-2024 12:48-0400 Systolic blood pressure 142 mm[Hg] Dr. Pamela Hernandez MD Work Phone: [facility] 02-28-2024 09:46-0400 Body height 173.4 cm Opal Medina MD Work Phone: [facility] 02-28-2024 09:46-0400 Body mass index (BMI) [Ratio] 41.81 kg/m2 Opal Medina MD Work Phone: [facility] 02-28-2024 09:46-0400 Body weight 125.65 kg Opal Medina MD Work Phone: [facility] 02-28-2024 09:46-0400 Diastolic blood pressure 78 mm[Hg] Opal Medina MD Work Phone: [facility] 02-28-2024 09:46-0400 Heart rate 82 /min Opal Medina MD Work Phone: [facility] 02-28-2024 09:46-0400 SaO2% (BldA) [Mass fraction] 96 % Opal Medina MD Work Phone: [facility] 02-28-2024 09:46-0400 Systolic blood pressure 120 mm[Hg] Opal Medina MD Work Phone: [facility] 11-01-2023 09:50-0400 Body height 173.4 cm Opal Medina MD Work Phone: [facility] 11-01-2023 09:50-0400 Body mass index (BMI) [Ratio] 42.62 kg/m2 Opal Medina MD Work Phone: [facility] 11-01-2023 09:50-0400 Body weight 128.1 kg Opal Medina MD Work Phone: [facility] 11-01-2023 09:50-0400 Diastolic blood pressure 74 mm[Hg] Opal Medina MD Work Phone: [facility] 11-01-2023 09:50-0400 Heart rate 79 /min Opal Medina MD Work Phone: [facility] 11-01-2023 09:50-0400 SaO2% (BldA) [Mass fraction] 94 % Opal Medina MD Work Phone: [facility] 11-01-2023 09:50-0400 Systolic blood pressure 122 mm[Hg] Opal Medina MD Work Phone: [facility] 07-31-2023 15:20-0400 Body height 173.4 cm Opal Medina MD Work Phone: [facility] 07-31-2023 15:20-0400 Body mass index (BMI) [Ratio] 42.5 kg/m2 Opal Medina MD Work Phone: [facility] 07-31-2023 15:20-0400 Body weight 127.73 kg Opal Medina MD Work Phone: [facility] 07-31-2023 15:20-0400 Diastolic blood pressure 85 mm[Hg] Opal Medina MD Work Phone: [facility] 07-31-2023 15:20-0400 Heart rate 81 /min Opal Medina MD Work Phone: [facility] 07-31-2023 15:20-0400 SaO2% (BldA) [Mass fraction] 95 % Opal Medina MD Work Phone: [facility] 07-31-2023 15:20-0400 Systolic blood pressure 125 mm[Hg] Opal Medina MD Work Phone: [facility] 07-05-2023 10:33-0500 Body height 173.4 cm Opal Medina MD Work Phone: [facility] 07-05-2023 10:33-0500 Body mass index (BMI) [Ratio] 41.87 kg/m2 Opal Medina MD Work Phone: [facility] 07-05-2023 10:33-0500 Body weight 125.83 kg Opal Medina MD Work Phone: [facility] 07-05-2023 10:33-0500 Diastolic blood pressure 72 mm[Hg] Opal Medina MD Work Phone: [facility] 07-05-2023 10:33-0500 Heart rate 80 /min Opal Medina MD Work Phone: [facility] 07-05-2023 10:33-0500 SaO2% (BldA) [Mass fraction] 95 % Opal Medina MD Work Phone: [facility] 07-05-2023 10:33-0500 Systolic blood pressure 116 mm[Hg] Opal Medina MD Work Phone: [facility] 01-26-2023 20:07-0400 Blood Pressure Cuff Size DR SADIA COLEMAN MD [facility] 01-26-2023 20:07-[address] SADIA COLEMAN MD [facility] 01-26-2023 20:07-[address] SADIA COLEMAN MD [facility] 01-26-2023 20:07-0400 Body temperature 97.7 [degF] DR SADIA COLEMAN MD [facility] 01-26-2023 20:07-0400 Diastolic Blood Pressure Non-Invasive [address] SADIA COLEMAN MD [facility] 01-26-2023 20:07-0400 Heart rate 77 /min DR SADIA COLEMAN MD [facility] 01-26-2023 20:07-0400 Respiratory rate 18 /min DR SADIA COLEMAN MD [facility] 01-26-2023 20:07-0400 Systolic Blood Pressure Non-Invasive [address] SADIA COLEMAN MD [facility] 01-16-2023 12:01-0400 Body temperature 97.88 [degF] DR GRICELDA OLIVER MD [facility] 01-16-2023 12:01-0400 Diastolic Blood Pressure Non-Invasive [address] GRICELDA OLIVER MD [facility] 01-16-2023 12:01-0400 Heart rate 76 /min DR GRICELDA OLIVER MD [facility] 01-16-2023 12:01-0400 Reason For Taking VItal Signs DR GRICELDA OLIVER MD [facility] 01-16-2023 12:01-0400 Respiratory rate 16 /min DR GRICELDA OLIVER MD [facility] 01-16-2023 12:01-0400 Systolic Blood Pressure Non-Invasive [address] GRICELDA OLIVER MD [facility] 01-16-2023 11:33-0400 Body temperature 97.7 [degF] DR GRICELDA OLIVER MD [facility] 01-16-2023 11:33-0400 Diastolic Blood Pressure Non-Invasive [address] GRICELDA OLIVER MD [facility] 01-16-2023 11:33-0400 Heart rate 75 /min DR GRICELDA OLIVER MD [facility] 01-16-2023 11:33-0400 Reason For Taking VItal Signs DR GRICELDA OLIVER MD [facility] 01-16-2023 11:33-0400 Systolic Blood Pressure Non-Invasive [address] GRICELDA OLIVER MD [facility] 01-16-2023 08:05-0400 Body temperature 97.52 [degF] DR GRICELDA OLIVER MD [facility] 01-16-2023 08:05-0400 Diastolic Blood Pressure Non-Invasive [address] GRICELDA OLIVER MD [facility] 01-16-2023 08:05-0400 Heart rate 63 /min DR GRICELDA OLIVER MD [facility] 01-16-2023 08:05-0400 Reason For Taking VItal Signs DR GRICELDA OLIVER MD [facility] 01-16-2023 08:05-0400 Respiratory rate 16 /min DR GRICELDA OLIVER MD [facility] 01-16-2023 08:05-0400 Systolic Blood Pressure Non-Invasive [address] GRICELDA OLIVER MD [facility] 01-16-2023 04:20-0400 Heart rate 84 /min DR GRICELDA OLIVER MD [facility] 01-16-2023 04:20-0400 Respiratory rate 16 /min DR GRICELDA OLIVER MD [facility] 01-15-2023 14:34-0400 Heart rate 76 /min DR GRICELDA OLIVER MD [facility] 01-15-2023 11:15-0400 Heart rate 74 /min DR GRICELDA OLIVER MD [facility] 01-15-2023 10:08-0400 Body height 172.[address] GRICELDA OLIVER MD [facility] 01-15-2023 10:08-0400 Body weight [address] GRICELDA OLIVER MD [facility] 01-15-2023 10:08-0400 Body weight 39.9 kg/m2 DR GRICELDA OLIVER MD [facility] 01-15-2023 08:55-0400 Body temperature 97.52 [degF] DR GRICELDA OLIVER MD [facility] 01-15-2023 08:45-0400 Respiratory Rate - Anes 6 br/min DR GRICELDA OLIVER MD [facility] 01-15-2023 08:40-0400 Respiratory Rate - Anes 15 br/min DR GRICELDA OLIVER MD [facility] 01-15-2023 08:35-0400 Respiratory Rate - Anes 14 br/min DR GRICELDA OLIVER MD [facility] 01-15-2023 08:30-0400 Body temperature 96.8 [degF] DR GRICELDA OLIVER MD [facility] 01-15-2023 08:15-0400 Body temperature 96.8 [degF] DR GRICELDA OLIVER MD [facility] 01-15-2023 05:40-0400 Body height 172.[address] GRICELDA OLIVER MD [facility] 01-15-2023 05:40-0400 Body temperature 98.06 [degF] DR GRICELDA OLIVER MD [facility] 01-15-2023 05:40-0400 Body weight [address] GRICELDA OLIVER MD [facility] 12-24-2022 10:36-0400 Body height 174 cm Opal Medina MD Work Phone: [facility] 12-24-2022 10:36-0400 Body mass index (BMI) [Ratio] 40.28 kg/m2 Opal Medina MD Work Phone: [facility] 12-24-2022 10:36-0400 Body weight 121.93 kg Opal Medina MD Work Phone: [facility] 12-24-2022 10:36-0400 Diastolic blood pressure 61 mm[Hg] Opal Medina MD Work Phone: [facility] 12-24-2022 10:36-0400 Heart rate 82 /min Opal Medina MD Work Phone: [facility] 12-24-2022 10:36-0400 SaO2% (BldA) [Mass fraction] 97 % Opal Medina MD Work Phone: [facility] 12-24-2022 10:36-0400 Systolic blood pressure 101 mm[Hg] Opal Medina MD Work Phone: [facility] 12-17-2022 08:40-[address] GRICELDA OLIVER MD [facility] 12-17-2022 08:40-[address] GRICELDA OLIVER MD [facility] 12-17-2022 08:40-0400 Body height 172.[address] GRICELDA OLIVER MD [facility] 12-17-2022 08:40-0400 Body weight [address] GRICELDA OLIVER MD [facility] 12-17-2022 08:40-0400 Body weight 39.9 kg/m2 DR GRICELDA OLIVER MD [facility] 12-17-2022 08:40-0400 Diastolic Blood Pressure Non-Invasive [address] GRICELDA OLIVER MD [facility] 12-17-2022 08:40-0400 Heart rate 90 /min DR GRICELDA OLIVER MD [facility] 12-17-2022 08:40-0400 Respiratory rate 18 /min DR GRICELDA OLIVER MD [facility] 12-17-2022 08:40-0400 Systolic Blood Pressure Non-Invasive [address] GRICELDA OLIVER MD [facility] 10-30-2022 11:31-0400 Body height 174 cm Opal Medina MD Work Phone: [facility] 10-30-2022 11:31-0400 Body mass index (BMI) [Ratio] 40.88 kg/m2 Opal Medina MD Work Phone: [facility] 10-30-2022 11:31-0400 Body weight 123.74 kg Opal Medina MD Work Phone: [facility] 10-30-2022 11:31-0400 Diastolic blood pressure 66 mm[Hg] Opal Medina MD Work Phone: [facility] 10-30-2022 11:31-0400 Heart rate 83 /min Opal Medina MD Work Phone: [facility] 10-30-2022 11:31-0400 SaO2% (BldA) [Mass fraction] 95 % Opal Medina MD Work Phone: [facility] 10-30-2022 11:31-0400 Systolic blood pressure 117 mm[Hg] Opal Medina MD Work Phone: [facility] 07-31-2022 13:21-0400 Diastolic blood pressure 66 mm[Hg] Opal Medina MD Work Phone: [facility] 07-31-2022 13:21-0400 Systolic blood pressure 132 mm[Hg] Opal Medina MD Work Phone: [facility] 07-31-2022 10:39-0400 Body height 177.8 cm Opal Medina MD Work Phone: [facility] 07-31-2022 10:39-0400 Body mass index (BMI) [Ratio] 40.69 kg/m2 Opal Medina MD Work Phone: [facility] 07-31-2022 10:39-0400 Body weight 128.64 kg Opal Medina MD Work Phone: [facility] 07-31-2022 10:39-0400 Heart rate 84 /min Opal Medina MD Work Phone: [facility] 07-31-2022 10:39-0400 SaO2% (BldA) [Mass fraction] 97 % Opal Medina MD Work Phone: [facility] 07-11-2022 12:02-0500 Body temperature 97.34 [degF] DR GRICELDA OLIVER MD [facility] 07-11-2022 12:02-0500 Diastolic Blood Pressure Non-Invasive [address] GRICELDA OLIVER MD [facility] 07-11-2022 12:02-0500 Heart rate 78 /min DR GRICELDA OLIVER MD [facility] 07-11-2022 12:02-0500 Reason For Taking VItal Signs DR GRICELDA OLIVER MD [facility] 07-11-2022 12:02-0500 Respiratory rate 14 /min DR GRICELDA OLIVER MD [facility] 07-11-2022 12:02-0500 Systolic Blood Pressure Non-Invasive [address] GRICELDA OLIVER MD [facility] 07-11-2022 07:48-05[address] Blood Pressure Cuff Size DR GRICELDA OLIVER MD [facility] 07-11-2022 07:48-[address] GRICELDA OLIVER MD [facility] 07-11-2022 07:48-[address] GRICELDA OLIVER MD [facility] 07-11-2022 07:48-0500 Body temperature 97.88 [degF] DR GRICELDA OLIVER MD [facility] 07-11-2022 07:48-0500 Diastolic Blood Pressure Non-Invasive [address] GRICELDA OLIVER MD [facility] 07-11-2022 07:48-0500 Heart rate 81 /min DR GRICELDA OLIVER MD [facility] 07-11-2022 07:48-0500 Reason For Taking VItal Signs DR GRICELDA OLIVER MD [facility] 07-11-2022 07:48-0500 Respiratory rate 14 /min DR GRICELDA OLIVER MD [facility] 07-11-2022 07:48-0500 Systolic Blood Pressure Non-Invasive [address] GRICELDA OLIVER MD [facility] 07-11-2022 07:24-0500 Heart rate 71 /min DR GRICELDA OLIVER MD [facility] 07-11-2022 07:24-0500 Respiratory rate 18 /min DR GRICELDA OLIVER MD [facility] 07-11-2022 06:17-0500 Body temperature 97.34 [degF] DR GRICELDA OLIVER MD [facility] 07-11-2022 06:17-0500 Diastolic Blood Pressure Non-Invasive [address] GRICELDA OLIVER MD [facility] 07-11-2022 06:17-0500 Reason For Taking VItal Signs DR GRICELDA OLIVER MD [facility] 07-11-2022 06:17-0500 Systolic Blood Pressure Non-Invasive [address] GRICELDA OLIVER MD [facility] 07-10-2022 10:19-0500 Mean blood pressure 87 mm[Hg] DR GRICELDA OLIVER MD [facility] 07-10-2022 09:49-0500 Body height 172.[address] GRICELDA OLIVER MD [facility] 07-10-2022 09:49-0500 Body weight 126.[address] GRICELDA OLIVER MD [facility] 07-10-2022 09:49-0500 Body weight 42.48 kg/m2 DR GRICELDA OLIVER MD [facility] 07-10-2022 08:41-0500 Body temperature 97.52 [degF] DR GRICELDA OLIVER MD [facility] 07-10-2022 08:35-0500 Respiratory Rate - Anes 15 br/min DR GRICELDA OLIVER MD [facility] 07-10-2022 08:30-0500 Respiratory Rate - Anes 16 br/min DR GRICELDA OLIVER MD [facility] 07-10-2022 08:25-0500 Respiratory Rate - Anes 15 br/min DR GRICELDA OLIVER MD [facility] 07-10-2022 05:46-0500 Body height 172.[address] GRICELDA OLIVER MD [facility] 07-10-2022 05:46-0500 Body temperature 97.52 [degF] DR GRICELDA OLIVER MD [facility] 07-10-2022 05:46-0500 Body weight 126.[address] GRICELDA OLIVER MD [facility] 07-10-2022 05:46-0500 Heart rate 74 /min DR GRICELDA OLIVER MD [facility] 07-05-2022 14:58-0500 Diastolic blood pressure 78 mm[Hg] Opal Medina Work Phone: [facility] Work Phone: 07-05-2022 14:58-0500 Systolic blood pressure 130 mm[Hg] Opal Medina Work Phone: [facility] Work Phone: 07-05-2022 14:45-0500 Body height 177.8 cm Opal Medina Work Phone: [facility] Work Phone: 07-05-2022 14:45-0500 Body mass index (BMI) [Ratio] 40.24 kg/m2 Opal Wongon Work Phone: [facility] Work Phone: 07-05-2022 14:45-0500 Body surface area Derived from formula 2.41 m2 Opal Medina Work Phone: [facility] Work Phone: 07-05-2022 14:45-0500 Body weight 127.21 kg Opal Medina Work Phone: [facility] Work Phone: 07-05-2022 14:45-0500 Diastolic blood pressure 87 mm[Hg] Opal Wongon Work Phone: [facility] Work Phone: 07-05-2022 14:45-0500 Heart rate 91 /min Opal Medina Work Phone: [facility] Work Phone: 07-05-2022 14:45-0500 SaO2% (BldA) [Mass fraction] 96 % Opal Medina Work Phone: [facility] Work Phone: 07-05-2022 14:45-0500 Systolic blood pressure 134 mm[Hg] Opal Medina Work Phone: [facility] Work Phone: 07-02-2022 10:02-0500 Body height 172.[address] GRICELDA OLIVER MD [facility] 07-02-2022 10:02-0500 Body weight 126.[address] GRICELDA OLIVER MD [facility] 05-25-2022 09:51-0500 Body height 177.8 cm Opal Medina Work Phone: [facility] Work Phone: 05-25-2022 09:51-0500 Body mass index (BMI) [Ratio] 39.67 kg/m2 Opal Medina Work Phone: [facility] Work Phone: 05-25-2022 09:51-0500 Body surface area Derived from formula 2.4 m2 Opal Medina Work Phone: [facility] Work Phone: 05-25-2022 09:51-0500 Body weight 125.42 kg Opal Medina Work Phone: [facility] Work Phone: 05-25-2022 09:51-0500 Diastolic blood pressure 77 mm[Hg] Opal Medina Work Phone: [facility] Work Phone: 05-25-2022 09:51-0500 Heart rate 76 /min Opal Medina Work Phone: [facility] Work Phone: 05-25-2022 09:51-0500 SaO2% (BldA) [Mass fraction] 98 % Opal Medina Work Phone: [facility] Work Phone: 05-25-2022 09:51-0500 Systolic blood pressure 123 mm[Hg] Opal Medina Work Phone: [facility] Work Phone: 03-30-2022 09:56-0500 Diastolic blood pressure 76 mm[Hg] Opal Medina Work Phone: [facility] Work Phone: 03-30-2022 09:56-0500 Systolic blood pressure 118 mm[Hg] Opal Medina Work Phone: [facility] Work Phone: 03-30-2022 09:45-0500 Body mass index (BMI) [Ratio] 40.11 kg/m2 Opal Medina Work Phone: [facility] Work Phone: 03-30-2022 09:45-0500 Body surface area Derived from formula 2.41 m2 Opal Medina Work Phone: [facility] Work Phone: 03-30-2022 09:45-0500 Body weight 126.81 kg Opal Medina Work Phone: [facility] Work Phone: 03-30-2022 09:45-0500 Diastolic blood pressure 88 mm[Hg] Opal Medina Work Phone: [facility] Work Phone: 03-30-2022 09:45-0500 Heart rate 83 /min Opal Medina Work Phone: [facility] Work Phone: 03-30-2022 09:45-0500 SaO2% (BldA) [Mass fraction] 99 % Opal Medina Work Phone: [facility] [employer] Work Phone: 03-30-2022 09:45-0500 Systolic blood pressure 134 mm[Hg] Opal Medina Work Phone: [facility] [employer] Work Phone: 12-07-2021 15:45-0400 Body mass index (BMI) [Ratio] 41.22 kg/m2 Opal Medina Work Phone: [facility] [employer] Work Phone: 12-07-2021 15:45-0400 Body surface area Derived from formula 2.43 m2 Opal Medina Work Phone: [facility] [employer] Work Phone: 12-07-2021 15:45-0400 Body weight 130.3 kg Opal Medina Work Phone: [facility] Work Phone: 12-07-2021 15:45-0400 Diastolic blood pressure 80 mm[Hg] Opal Medina Work Phone: [facility] [employer] Work Phone: 12-07-2021 15:45-0400 Heart rate 71 /min Opal Medina Work Phone: [facility] Work Phone: 12-07-2021 15:45-0400 SaO2% (BldA) [Mass fraction] 99 % Opal Medina Work Phone: [facility] Work Phone: 12-07-2021 15:45-0400 Systolic blood pressure 125 mm[Hg] Opal Medina Work Phone: [facility] Work Phone: 07-14-2021 10:04-0500 Body mass index (BMI) [Ratio] 42.54 kg/m2 Opal Medina Work Phone: RP-Ycsshidhgrdi-Pi sman [address] Work Phone: 07-14-2021 10:04-0500 Body surface area Derived from formula 2.47 m2 Opal Medina Work Phone: IV-Qyqhuhbbuwxo-Ar sm[address] Work Phone: 07-14-2021 10:04-0500 Body weight 134.49 kg Opal Medina Work Phone: NN-Qemrycjmqbge-Jl sm[address] Work Phone: 07-14-2021 10:04-0500 Diastolic blood pressure 73 mm[Hg] Opal Medina Work Phone: MI-Hxygvvfissqr-Ie sman [address] Work Phone: 07-14-2021 10:04-0500 Heart rate 82 /min Opal Medina Work Phone: XE-Llgnigwbtaks-Bq sman [address] Work Phone: 07-14-2021 10:04-0500 SaO2% (BldA) [Mass fraction] 99 % Opal Medina Work Phone: IV-Xiisaobwlbux-Gx sman [address] Work Phone: 07-14-2021 10:04-0500 Systolic blood pressure 118 mm[Hg] Opal Medina Work Phone: TK-Hckwujuvdebd-Sl sm[address] Work Phone: 06-30-2021 10:50-0500 Body mass index (BMI) [Ratio] 42.76 kg/m2 Opal Medina Work Phone: TW-Dmojtrdokq-Fmpg n [id number] Work Phone: 06-30-2021 10:50-0500 Body surface area Derived from formula 2.47 m2 Opal Medina Work Phone: [place] [id number] Work Phone: 06-30-2021 10:50-0500 Body weight 135.17 kg Opal Medina Work Phone: ZL-Rcdnrmiotc-Dlcg n [id number] Work Phone: 06-30-2021 10:50-0500 Diastolic blood pressure 78 mm[Hg] Opal Medina Work Phone: TR-Pxqajognuu-Ujxl n [id number] Work Phone: 06-30-2021 10:50-0500 Heart rate 91 /min Opal Medina Work Phone: XA-Urrsuaguqq-Ctpb n [id number] Work Phone: 06-30-2021 10:50-0500 Systolic blood pressure 168 mm[Hg] Opal Medina Work Phone: IH-Xzysryumdk-[place] n [id number] Work Phone: 06-27-2021 07:46-0500 Body temperature 97.34 [degF] AVELINA CHAPA [employer] [facility] 06-27-2021 07:46-0500 Diastolic blood pressure 78 mm[Hg] AVELINA CHAPA APRN-AD[employer]ICE [employer] RN [facility] 06-27-2021 07:46-0500 Heart rate 65 /min AVELINA CHAPA [employer] [facility] 06-27-2021 07:46-0500 Reason For Taking VItal Signs AVELINA CHAPA [employer] [facility] 06-27-2021 07:46-0500 Respiratory rate 20 /min AVELINA CHAPA [employer] RN [facility] 06-27-2021 07:46-0500 Systolic blood pressure 144 mm[Hg] AVELINA CHAPA [employer] RN [facility] 06-27-2021 03:23-0500 Body temperature 98.24 [degF] AVELINA CHAPA [employer] RN [facility] 06-27-2021 03:23-0500 Diastolic blood pressure 83 mm[Hg] AVELINA CHAPA [employer] RN [facility] 06-27-2021 03:23-0500 Heart rate 65 /min AVELINA CHAPA [employer] RN [facility] 06-27-2021 03:23-0500 Mean blood pressure 101 mm[Hg] AVELINA CHAPA [employer] RN [facility] 06-27-2021 03:23-0500 Reason For Taking VItal Signs AVELINA CHAPA [employer] [facility] 06-27-2021 03:23-0500 Respiratory rate 20 /min AVELINA CHAPA [employer] [facility] 06-27-2021 03:23-0500 Systolic blood pressure 136 mm[Hg] AVELINA CHAPA [employer] RN [facility] 06-26-2021 20:02-0500 Body temperature 97.88 [degF] AVELINA CHAPA [employer] [facility] 06-26-2021 20:02-0500 Diastolic blood pressure 94 mm[Hg] AVELINA CHAPA [employer] [facility] 06-26-2021 20:02-0500 Heart rate 76 /min AVELINA CHAPA [employer] [facility] 06-26-2021 20:02-0500 Mean blood pressure 111 mm[Hg] AVELINA CHAPA [employer] [facility] 06-26-2021 20:02-0500 Reason For Taking VItal Signs AVELINA CHAPA APRN[employer] RN [facility] 06-26-2021 20:02-0500 Respiratory rate 18 /min AVELINA CHAPA [employer] [facility] 06-26-2021 20:02-0500 Systolic blood pressure 145 mm[Hg] AVELINA CHAPA [employer] RN [facility] 06-26-2021 04:27-0500 Heart rate 71 /min AVELINA FOITH [employer] [facility] 06-25-2021 19:51-0500 Heart rate 70 /min AVELINA FOITH [employer] [facility] 06-24-2021 19:36-0500 Body height 177 cm AVELINA FOITH [employer] [facility] 06-24-2021 19:36-0500 Body weight 130 kg AVELINA FOITH [employer] RN [facility] 06-24-2021 19:36-0500 Body weight 41.5 kg/m2 AVELINA FOITH [employer] RN [facility] 06-24-2021 19:31-0500 Heart rate 82 /min AVELINA FOITH [employer] RN [facility] 02-17-2021 10:52-0400 Body height 177.8 cm Opal [...] rate 18 /min Opal Medina Work Phone: [facility] Work Phone: 02-17-2021 10:52-0400 Systolic blood pressure 119 mm[Hg] Opal Medina Work Phone: [facility] Work Phone: 09-21-2019 16:55-0400 BMI (Body Mass Index) 43.59 kg/m2 Opal Wongon [facility] Work Phone: 09-21-2019 16:55-0400 Body weight 137.8 kg Opal Wongon [facility] Work Phone: 09-21-2019 16:55-0400 BP Diastolic 90 mm[Hg] Opal Stevens -[facility] Work Phone: 09-21-2019 16:55-0400 BP Systolic 130 mm[Hg] Opal Stevens -[facility] Work Phone: 09-21-2019 16:55-0400 BSA (Body Surface Area) 2.49 m2 Opal Stevens [facility] Work Phone: 09-21-2019 16:55-0400 Pulse (Heart Rate) 84 /min Opal Adam [facility] Work Phone: 05-22-2019 11:08-0500 BMI (Body Mass Index) 42.36 kg/m2 [facility] Med[facility] Work Phone: 05-22-2019 11:08-0500 Body weight 133.93 kg Opal Medina [facility] Work Phone: 05-22-2019 11:08-0500 BP Diastolic 80 mm[Hg] [facility] Med[facility] Work Phone: 05-22-2019 11:08-0500 BP Systolic 130 mm[Hg] [facility] Med[facility] Work Phone: 05-22-2019 11:08-0500 BSA (Body Surface Area) 2.46 m2 Opal Medina [facility] Work Phone: 05-22-2019 11:08-0500 Pulse (Heart Rate) 88 /min Opal Medina [facility] Work Phone: 05-08-2019 15:25-0500 BMI (Body Mass Index) 43.05 kg/m2 Opal Medina [facility] Work Phone: 05-08-2019 15:25-0500 Body Temperature 98.4 [...] Type Care Provider Facility Start: 12-18-2024 ambulatory [facility] Facility :[facility] Start: 12-09-2024 End: 12-09-2024 Emergency department patient visit Dr. Pamela Hernandez MD Work Phone: -Emergency Department Work Phone: Start: 12-02-2024 End: 12-02-[address] Pamela Hernandez MD -[facility] Start: 12-02-2024 End: 12-02-2024 ambulatory Pamela Ricklay Facility:[facility] Start: 11-30-2024 End: 11-30-[address] Pamela Hernandez MD [facility] Work Phone: Start: 11-30-2024 End: 11-30-2024 ambulatory Pamela Hernandez [facility] Start: 02-28-2024 End: 02-28-2024 [...] encounter procedure Opal Medina MD Work Phone: [facility] Work Phone: Start: 02-28-2024 End: 02-28-2024 ambulatory [facility] Start: 02-28-2024 End: 02-28-2024 Encounter for general adult medical examination without abnormal findings [facility] Start: 11-01-2023 End: 11-01-2023 Office outpatient [...] nicotine-induced disorder Start: 10-29-2023 End: 10-29-2023 ambulatory [facility] Start: 09-23-2023 End: 09-23-2023 Subsequent hospital visit by physician Tariq Zheng [facility] Comment on above: Vasovagal syncope; Syncope and collapse Start: 09-23-2023 End: 09-23-2023 ambulatory [facility] Start: 09-04-2023 End: 09-04-2023 Subsequent hospital visit by physician Nancy [address] [facility] Comment on above: Vasovagal syncope Start: 09-04-2023 End: 09-04-2023 ambulatory [facility] Start: 08-26-2023 End: 08-26-2023 ambulatory [facility] Start: 08-14-2023 End: 08-14-2023 Subsequent hospital visit by physician Med Echo/Stress [facility] Comment on above: Vasovagal syncope Start: 08-14-2023 End: 08-14-2023 ambulatory OPAL MEDINA [facility] Start: 07-31-2023 End: 07-31-2023 Office outpatient visit [...] Chronic obstructive pulmonary disease, unspecified COPD type ([facility]/HCC); Hypercholesterolemia; Chronic midline low back pain without sciatica; RLS (restless legs syndrome); Primary hypertension; Acute deep vein thrombosis (DVT) of proximal vein of left lower extremity ([facility]/HCC); Current moderate episode of major depressive disorder without prior episode ([facility]/HCC) Start: 07-01-2023 End: 07-01-2023 ambulatory OAPL Wilson [facility] Start: 07-01-2023 End: 07-01-2023 Encounter for general adult medical examination without abnormal findings [facility] Start: 01-26-2023 End: 01-26-2023 Emergency department patient visit DR SADIA COLEMAN MD Facility:B Start: 01-26-2023 End: 01-26-2023 Emergency department patient visit DR SADIA COLEMAN MD [facility] Start: 01-15-2023 End: 01-16-2023 ambulatory BECK PECK [employer] RN Facility:B Start: 01-15-2023 End: 01-16-[address] GRICELDA OLIVER MD [facility] Start: 01-07-2023 End: 01-08-[address] OPAL MEDINA MD Facility:B Start: 01-07-2023 End: 01-07-[address] GRICELDA OLIVER MD [facility] Start: 12-24-2022 End: 12-24-2022 Office outpatient visit [...] examination done Opal Medina MD Work Phone: [facility] Work Phone: Start: 12-17-2022 End: 12-18-[address] OPAL MEDINA MD Facility:B Start: 12-17-2022 End: 12-17-[address] GRICELDA OLIVER MD [facility] Start: 12-09-[address] OPAL MEDINA MD [...] Start: 07-10-2022 End: 07-11-2022 ambulatory RAINE GARCIA [employer] RN Facility:B Start: 07-10-2022 End: 07-11-[address] GRICELDA OLIVER MD [facility] Start: 07-05-2022 Office outpatient vi sit 25 minutes Opal Medina Work Phone: [facility] Work Phone: Start: 07-05-[address] Opal Medina Facility:[id number] Start: 07-02-2022 End: 07-03-[address] OPAL MEDINA MD Facility:B Start: 07-02-2022 End: 07-03-[address] OPAL MEDINA MD Facility:B Start: 07-02-2022 End: 07-02-[address] GRICELDA OLIVER MD [facility] Start: 06-13-2022 Patient encounter procedure Opal Medina Work Phone: [facility] Work [facility]: Start: 05-29-2022 End: 05-30-[address] OPAL MEDINA MD Facility:B Start: 05-25-[address] Opal Medina Facility:[id number] Start: 05-25-2022 Office outpatient vi sit 25 minutes Opal Medina Work Phone: [facility] Work [facility]: Start: 05-25-[address] Opal Medina Facility:[id number] Start: 05-20-2022 Chart Update Opal Medina Work Phone: [facility] Work Phone: Start: 05-07-2022 End: 05-08-[address] OPAL MEDINA MD Facility:B Start: 05-07-2022 End: 05-07-2022 Patient encounter procedure ELISEO BRAXTON DO [facility] Start: 05-01-2022 AUDIT Opal Medina Work Phone: [...] Phone: [facility] Work Phone: Start: 03-30-[address] Opal Medina Facility:[id number] Start: 03-28-2022 AUDIT Opal Medina Work Phone: [facility] Work Phone: Start: 01-18-[address] Gricelda Guardado Facility:[id number] Start: 01-18-2022 Office outpatient vi sit 25 minutes Opal Medina Work Phone: [facility]Qamdvpjbfzvs-Ajkff n 210 Work Phone: Start: 12-07-2021 Office outpatient vi sit 25 minutes Opal Medina Work Phone: [facility] Work Phone: Start: 12-07-[address] Opal Wongon Facility:[id number] Start: 11-08-2021 Chart Update Opal Medina Work Phone: [facility]-Bhs[facility]ijm[facility]yck-[place] [address] DO Work Phone: Start: 10-13-2021 Patient encounter procedure Opal Medina Work Phone: YP-Afhicsjvvbli-Noapm a Work Phone: Start: 10-13-[address] Gricelda Guardado Facility:[id number] Start: 10-11-[address] Opal Medina Facility:[id number] Start: 07-14-2021 Patient encounter procedure Opal Medina Work Phone: PJ-Szhbucneipwu-Kpuso n 210 Work Phone: Start: 07-14-[address] Opal Medina Facility:[id number] Start: 06-30-2021 Office outpatient vi sit 25 minutes Opal Medina Work Phone: DZ-Ryzhfgudji-Lgnab [id number] Work Phone: Start: 06-24-2021 End: 06-27-2021 [facility] Start: 04-14-2021 Patient encounter procedure Opal Medina Work Phone: YD-Ypbuntuvvgcz-Vkiyf a Work Phone: Start: 02-17-2021 Office outpatient vi sit 25 minutes Opal Medina Work Phone: [facility] Work Phone: Start: 01-13-2021 Patient encounter procedure Opal Medina Work Phone: WD-Svtzcrniuayy-Ngnbx a Work Phone: Start: 09-21-2019 Patient encounter procedure Opal Medina [facility] Work Phone: Start: 07-06-2019 Patient encounter procedure Opal Medina [facility] Work Phone: Start: 05-22-2019 Patient encounter procedure Opal Medina [facility] Work Phone: Start: 05-08-2019 Patient encounter procedure Opal Medina [facility] Work Phone: Start: 02-02-2019 Patient encounter procedure Opal Medina [facility] Work Phone: Start: 10-27-2018 Patient encounter procedure Opal Medina [facility] Work Phone: Start: 10-09-2018 Patient encounter procedure Opal Medina [facility] Work Phone: Start: 09-08-2018 End: 09-08-2018 Patient encounter procedure CURT SUOSA Facility:[facility] Start: 07-21-2018 Patient encounter procedure Opal Medina [facility] Work Phone: Start: 07-05-2018 End: 07-05-2018 Patient encounter procedure OPAL Wilson ADAM [facility] Start: 06-09-2018 Patient encounter procedure Opal Medina [facility] Work Phone: Start: 04-19-2018 Patient encounter procedure Opal Medina [facility] Work Phone: Start: 01-31-2018 Patient encounter procedure Opal Medina [facility] Work Phone: Start: 09-20-2017 Patient encounter procedure Opal Medina [facility] Work Phone: Start: 09-16-2017 Patient encounter procedure Opal Medina [facility] Work Phone: Start: 09-12-2017 Patient encounter procedure Opal Medina [facility] Work Phone: Start: 05-17-2017 Patient encounter procedure Opal Medina [facility] Work Phone: Patient encounter status Opal Medina Work Phone: [facility] Work Phone: Procedures Date Procedure Procedure Detail Performing Clinician Start: 12-09-2024 Ultrasound of scrotu m with Doppler and color flow imaging Dr. Pamela Hernandez MD Work Phone: Start: 12-02-2024 Vitamin D, 25-hydrox y measurement Dr. Pamela Hernandez MD Work Phone: Comment on above: Vitamin D StatusDefi ciency: <20 ng/mL (50nmol/L)Insufficiency: 20-30 ng/mL (50-75 nmol/L)Sufficiency: 30-100 ng/mL (75-250 nmol/L)Toxicity: >100 ng/mL (>250 nmol/L) Start: 10-29-2023 Lipid 1996 panel - S [...] 08-14-2023 TRANSTHORACIC ECHO ( TTE) LIMITED OPAL MEDINA Start: 08-14-2023 Echo transthorc r-t 2d w/wo m-mode rec f-up/lmtd Opal Medina MD Work Phone: Start: 07-01-2023 CBC panel - Blood by Automated count OPAL MEDINA Start: 07-01-2023 Comprehensive metabo lic 2000 panel - Serum or Plasma OPAL MEDINA Start: 07-01-2023 Lipid panel OPAL WONG ON Start: 07-01-2023 TSH WITH REFLEX TO F [...] Follow-up visit Start: 07-17-2021 Abscess (disorder) BOWEN BRAXTON DO Comment on above: I&D SCROTAL ABSCESS (OFFICE) Start: 02-08-2020 Colonoscopy Opal cool MD Work Phone: Start: 09-24-2019 Culture bacterial [...] Curt Sousa Excision of melanoma AVELINA CHAPA [employer] RN Hernia repair Opal Medina Comment on above: bilat repaired after ; History of hernia repair SETH CHAPA [employer]AD[employer] RN Comment on above: occured as Plan of Treatment Date Care Activity Detail Author Start: 08-08-2030 DTaP/Tdap/Td Vaccine s (2 - Td or Tdap) DTaP/Tdap/Td Vaccines (2 - Td or Tdap) [facility] Start: 02-07-2030 Screening for malignant neoplasm of colon [facility] Start: 10-28-2028 Lipid panel Lipid Panel [facility] Start: 07-01-2028 Lipid panel Lipid Panel [facility] Start: 05-18-2027 Lipid panel Lipid Panel [facility] Start: 12-09-2024 [facility] Start: 07-03-2024 End: 07-03-2024 Patient encounter procedure 07/03/2024 10:00 AM EST [facility] [address] [phone] Opal Medina MD [address] [facility], [facility] [address] [place] [address] [facility] Start: 05-18-2024 End: 08-28-2024 25-hydroxyvitamin D3 [Mass/volume] in Serum or Plasma Vitamin D 25-Hydroxy,Total (for eval of Vitamin D levels) Lab Routine Annual physical exam Expected: 05/18/2024, Expires: 08/28/2024 [facility] Work Phone: Comment on above: Expected: 05/18/2024 , Expires: 08/28/2024 Start: 05-18-2024 End: 02-27-2025 CBC panel - Blood by Automated count CBC Lab Routine Annual physical exam Expected: 05/18/2024, Expires: 02/27/2025 [facility] Service Area Work Phone: Comment on above: Expected: 05/18/2024 , Expires: 02/27/2025 Start: 05-18-2024 End: 08-28-2024 Comprehensive metabolic 2000 panel - Serum or Plasma Comprehensive metabolic panel Lab Routine Annual physical exam Expected: 05/18/2024, Expires: 08/28/2024 [facility] Work Phone: Comment on above: Expected: 05/18/2024 , Expires: 08/28/2024 Start: 05-18-2024 End: 08-28-2024 Lipid 1996 panel - Serum or Plasma Lipid panel Lab Routine Annual physical exam Expected: 05/18/2024, Expires: 08/28/2024 [facility] Work Phone: Comment on above: Expected: 05/18/2024 , Expires: 08/28/2024 Start: 05-18-2024 End: 08-28-2024 Tsh With Reflex To Free T4 If Abnormal Tsh With Reflex To Free T4 If Abnormal Lab Routine Annual physical exam Expected: 05/18/2024, Expires: 08/28/2024 [facility] Work Phone: Comment on above: Expected: 05/18/2024 , Expires: 08/28/2024 Start: 02-28-2024 End: 02-28-2024 Patient encounter procedure 02/28/2024 10:00 AM EDT Office Visit [facility] [address] [place] [phone] Opal Medina MD [address] [facility], [facility] [address] [place] [address] [facility] Start: 01-12-2024 COVID-19 Vaccine ( season) COVID-19 Vaccine ( season) [facility] Start: 11-01-2023 End: 11-01-2023 Patient encounter procedure 11/01/2023 10:00 AM EDT Office Visit [facility] [place] [phone] Opal Medina MD [address] [facility], [facility] [address] [place], [place] [phone] [facility] Start: 10-03-2023 End: 07-05-2024 Hepatic function 2000 panel - Serum or Plasma Hepatic function panel Lab Routine Hypercholesterolemia Expected: 10/03/2023 (Approximate), Expires: 07/05/2024 [facility] Work Phone: Comment on above: Expected: 10/03/2023 (Approximate), Expires: 07/05/2024 Start: 10-03-2023 End: 07-05-2024 Lipid 1996 panel - Serum or Plasma Lipid panel Lab Routine Hypercholesterolemia Expected: 10/03/2023 (Approximate), Expires: 07/05/2024 [facility] Service Area Work Phone: Comment on above: Expected: 10/03/2023 (Approximate), Expires: 07/05/2024 Start: 09-23-2023 End: 09-23-2023 Patient encounter procedure 09/23/2023 11:00 AM EDT Appointment [facility] [address] [place] [address] [facility] Start: 08-14-2023 End: 08-14-2023 Patient encounter procedure 08/14/2023 2:00 PM EDT Appointment [facility] [address] [place] [address] [facility] Start: 07-31-2023 End: 07-30-2025 US Heart Transthoracic Transthoracic Echo Limited Echocardiography Routine Vasovagal syncope Expected: 07/31/2023 (Approximate), Expires: 07/30/2025 [facility] Service Area Work Phone: Comment on above: Expected: 07/31/2023 (Approximate), Expires: 07/30/2025 Start: 03-24-2023 Pneumococcal Vaccine : Pediatrics (0 to 5 Years) and At-Risk Patients (6 to 64 Years) (2 - PCV) Pneumococcal Vaccine: Pediatrics (0 to 5 Years) and At-Risk Patients (6 to 64 Years) (2 - PCV) [facility] Start: 02-26-2023 End: 02-26-2023 Patient encounter procedure 02/26/2023 11:30 AM EDT Office Visit [facility] [address] [place] [address] Opal Medina MD [address] [facility], [facility] [address] [place], [place] [phone] [facility] Start: 01-11-2023 COVID-19 Vaccine ( season) COVID-19 Vaccine () [facility] Start: 01-11-2023 COVID-19 Vaccine () COVID-19 Vaccine () [facility] Start: 01-11-2023 Influenza vaccination Influenza Vacc ine (#1) [facility] Start: 11-26-2022 End: 11-26-2022 Patient encounter procedure 11/26/2022 11:30 AM EDT Office Visit [facility] [address] [place] [phone] Opal Medina MD [address] [facility], [facility] [address] [place], [place] [phone] [facility] Start: 10-30-2022 End: 10-30-2022 Patient encounter procedure 10/30/2022 11:30 AM EDT Office Visit [facility] [address] [place] [phone] Opal Medina MD [address] [facility], [facility] [address] [place], [place] [phone] [facility] Start: 08-15-2022 EPV, Provider: Opal Medina, Status: Pen, Time: 10:00 AM EPV, Provider: Opal Medina, Status: Pen, Time: 10:00 AM [facility] Work Phone: Start: 05-25-2022 EPV, Provider: Opal Medina, Status: Pen, Time: 10:00 AM EPV, Provider: Opal Medina, Status: Pen, Time: 10:00 AM [facility]: Start: 05-19-2022 COVID-19 Vaccine (5 - Booster for Moderna series) COVID-19 Vaccine (5 - Booster for Moderna series) [facility] Start: 04-27-2022 INJECTION, Provider: Gricelda Guardado, Status: Pen, Time: 11:30 AM INJECTION, Provider: Gricelda Guardado, Status: Pen, Time: 11:30 AM PO-Ellggbollqre-H [address] Work Phone: Start: 2022 RSV High Risk: (Elderly (60+) or Population) (1 - Risk 60-74 years 1-dose series) RSV High Risk: (Elderly (60+) or Population) (1 - Risk 60-74 years 1-dose series) [facility] Start: 2022 RSV patient s and/or patients aged 60+ years (1 - 1-dose 60+ series) RSV patients and/or patients aged 60+ years (1 - 1-dose 60+ series) [facility] Start: 03-30-2022 FUV, Provider: Opal Medina, Status: Pen, Time: 10:00 AM FUV, Provider: Opal Medina, Status: Pen, Time: 10:00 AM [facility]: Start: 01-18-2022 INJECTION, Provider: Gricelda Guardado, Status: Pen, Time: 4:30 PM INJECTION, Provider: Gricelda Guardado, Status: Pen, Time: 4:30 PM OS-Mznpqdwwoljz-T [place] [address] DO Work Phone: Start: 01-18-2022 INJECTION, Provider: Yuli Sparrow, Status: Pen, Time: 4:15 PM INJECTION, Provider: Yuli Sparrow, Status: Pen, Time: 4:15 PM [facility]: Start: 01-12-2022 INJECTION, Provider: Gricelda Guardado, Status: Pen, Time: 10:00 AM INJECTION, Provider: Gricelda Guardado, Status: Pen, Time: 10:00 AM KC-Jgsvwmipohdf-C radha Work Phone: Start: 10-13-2021 INJECTION, Provider: Gricelda Guardado, Status: Pen, Time: 9:50 AM INJECTION, Provider: Gricelda Guardado, Status: Pen, Time: 9:50 AM UD-Bxadmmjghzfu-I isman [address] Work Phone: Start: 10-11-2021 EPV, Provider: Opal Medina, Status: Pen, Time: 10:00 AM EPV, Provider: Opal Medina, Status: Pen, Time: 10:00 AM OT-Asxvruexmnkb-O isman [address] Work Phone: Start: 07-14-2021 EPV, Provider: Opal Medina, Status: Pen, Time: 10:15 AM EPV, Provider: Opal Medina, Status: Pen, Time: 10:15 [place] [id number] Work Phone: Start: 07-14-2021 INJECTION, Provider: Gricelda Guardado, Status: Pen, Time: 9:40 AM INJECTION, Provider: Gricelda Guardado, Status: Pen, Time: 9:40 AM ID-Qjyajjgbbsmh-V radha Work Phone: Start: 06-30-2021 Screening for malignant neoplasm of colon FIT-DNA (Cologuard) [facility] Start: 06-16-2021 FUV, Provider: Opal Medina, Status: Pen, Time: 10:30 AM FUV, Provider: Opal Medina, Status: Pen, Time: 10:30 AM [facility] Work Phone: Start: 04-14-2021 FUV, Provider: Gricedla Guardado, Status: Pen, Time: 9:50 AM FUV, Provider: Gricelda Guardado, Status: Pen, Time: 9:50 AM EA-Jivyjisshyux-P radha Work Phone: Start: 02-17-2021 FUV, Provider: Opal Medina, Status: Pen, Time: 10:30 AM FUV, Provider: Opal Medina, Status: Pen, Time: 10:30 AM VL-Ktnoaizzjcxc-A radha Work Phone: Start: 09-24-2019 Xray Chest 2 V iew PA + Lateral [facility] Work Phone: Start: 2012 Screening for malignant neoplasm of lung Lung Cancer Screening [facility] Start: 07-16-1999 Hepatitis B Vaccines (3 of 3 - 19+ 3-dose series) Hepatitis B Vaccines (3 of 3 - 19+ 3-dose series) [facility] Start: 07-13-1999 Hepatitis A Vaccines (2 of 2 - Risk 2-dose series) Hepatitis A Vaccines (2 of 2 - Risk 2-dose series) [facility] Start: 07-13-1999 Hepatitis B Vaccines (3 of 3 - 19+ 3-dose series) Hepatitis B Vaccines (3 of 3 - 19+ 3-dose series) [facility] Start: 1980 Diabetes mellitus screening Diabetes Screening [facility] Start: 1980 Hepatitis C screening Hepatitis C Sc [facility] Start: 1963 MMR Vaccines (1 of 1 - Standard series) MMR Vaccines (1 of 1 - Standard series) [facility] Start: 1962 Examination of skin Derm Melanoma Sk in Check [facility] Start: 1962 HIV screening HIV Screening [facility] Start: 1962 Screening for malignant neoplasm of colon [facility] Start: 1962 Yearly Adult Physical Yearly Adult P hysical [facility] Abdominal aortic aneurysm screening [facility] CT Chest [facility] Patient Education ED Hydrocele, Type Not Specified [facility] Work Phone: Tobacco use cessatio n education [facility] US.doppler Lower extremity vein [facility] Work Phone: NEGATED: Highlighted row has been ruled out! Planned Goals not documented [facility] Work Phone: Immunizations Immunization Date Immunization Notes Care Provider Afsaneh thomas 02-28-2024 influenza, seasonal, injectable, preservative free Opal Medina MD Work Phone: [facility] Work Phone: 03-01-2023 influenza, injectabl e, quadrivalent, preservative free Opal Medina MD Work Phone: [facility] 03-24-2022 influenza virus vacc ine, unspecified formulation DR GRICELDA OLIVER MD [facility] 03-24-2022 influenza, injectabl e, quadrivalent, preservative free Opal Medina Work Phone: [facility] 03-24-2022 influenza, seasonal, injectable Opal Medina Work Phone: [facility] Work Phone: Comment on above: Series: 03-24-2022 Moderna COVID-19 Biv al Booster 50 MCG/0.5ML Intramuscular Suspension Opal Medina Work Phone: [facility] Comment on above: Series: 03-24-2022 Pfizer COVID-19 vacc ine, bivalent, age 5y-11y (10 mcg/0.2 mL) Opal Medina MD Work Phone: [facility] Work Phone: 03-24-2022 pneumococcal 20-josé miguel nt conjugate vaccine DR GRICELDA OLIVER MD [facility] 03-24-2022 pneumococcal polysaccharide vaccine, 23 valent Opal [place] Work Phone: [facility] Work Phone: Comment on above: Series: 03-24-2022 Prevnar 20 0.5 ML Intramuscular Suspension Prefilled Syringe Opal Medina Work Phone: [facility] Work Phone: 03-24-2022 SARS-CoV-2 (CV19)mRNA-[address] GRICELDA OLIVER MD [facility] 03-24-2022 SARSCoV2 (CV19)mRNA-1273(6y+ bival miguel DR GRICELDA OLIVER MD [facility] 09-24-2021 Moderna COVID-19 Vac cine 100 MCG/0.5ML Intramuscular Suspension Opal Medina Work Phone: [facility] 09-24-2021 zoster vaccine recombinant Opal Medina Work Phone: [facility] 05-03-2021 Moderna COVID-19 Vac cine 100 MCG/0.5ML Intramuscular Suspension Opal Medina Work Phone: [facility] 05-03-2021 zoster vaccine recombinant Opal Medina Work Phone: [facility] 02-17-2021 influenza virus vacc ine, unspecified formulation DR GRICELDA OLIVER MD [facility] 02-17-2021 influenza, injectabl e, quadrivalent, contains preservative; Translations: [Flulaval Quadrivalent Intramuscular Suspension] Opal Medina Work Phone: [facility] Work Phone: Comment on above: Series: 02-17-2021 influenza, injectabl e, quadrivalent, preservative free Dr. Pamela Hernandez MD Work Phone: [facility] 02-17-2021 influenza, seasonal, injectable Opal Medina MD Work Phone: [facility] Work Phone: 09-15-2020 Moderna COVID-19 Vac cine 100 MCG/0.5ML Intramuscular Suspension Opal Medina Work Phone: [facility] Comment on above: Result Comment: 2022: [id number] 08-10-2020 Moderna COVID-19 Vac cine 100 MCG/0.5ML Intramuscular Suspension Opal Medina Work Phone: [facility] Comment on above: Result Comment: 2022: [id number] 08-08-2020 tetanus toxoid, redu elsa diphtheria toxoid, and acellular pertussis vaccine, adsorbed; Translations: [Boostrix (Tdap)] [facility] 01-25-2020 influenza virus vacc ine, unspecified formulation DR GRICELDA OLIVER MD [facility] 01-25-2020 influenza, injectabl e, quadrivalent, preservative free; Translations: [Flulaval Quadrivalent 0.5 ML Intramuscular Suspension Prefilled Syringe] Opal Medina Work Phone: [facility] Comment on above: Series: 01-25-2020 influenza, seasonal, injectable Opal Medina MD Work Phone: [facility] Work Phone: 01-10-2019 influenza virus vacc ine, unspecified formulation DR GRICELDA OLIVER MD [facility] 01-10-2019 influenza, injectabl e, quadrivalent, preservative free Opal M Adam Work Phone: [facility] 01-31-2018 influenza, injectabl e, quadrivalent, preservative free; Translations: [Flulaval Quadrivalent 0.5 ML Intramuscular Suspension Prefilled Syringe] Opal Medina [facility] Comment on above: Series: 01-31-2018 influenza virus vacc ine, unspecified formulation DR GRICELDA OLIVER MD [facility] 01-31-2018 influenza, seasonal, injectable Opal Medina MD Work Phone: [facility] Work Phone: 03-10-2017 influenza virus vacc ine, unspecified formulation DR GRICELDA OLIVER MD [facility] 03-10-2017 influenza, injectabl e, quadrivalent, preservative free Opal Katie Adam Work Phone: [facility] 02-14-1999 hepatitis B vaccine, adult dosage Opal M Adam Work Phone: [facility] 02-14-1999 influenza virus vacc ine, whole virus Opal Medina Work Phone: [facility] 02-14-1999 influenza, injectabl e, quadrivalent, preservative free Dr. Pamela Hernandez MD Work Phone: [facility] 01-12-1999 hepatitis A vaccine, pediatric/adolescent dosage, [address] Pamela Hernandez MD Work Phone: [facility] 01-12-1999 hepatitis A vaccine, unspecified formulation Opal M Adam Work Phone: [facility] 01-12-1999 hepatitis B vaccine, adult dosage Opal M Adam Work Phone: [facility] 01-12-1999 hepatitis A and hepatitis B vaccine [address] Work Phone: Payers Date Payer Category Payer Unknown [id number] 2024 Self-pay 2023 [facility] (Private) [facility] [id number] 2023 Unknown 2023 Unknown [id number] 2018 Private Health Insurance [employer] [facility] [id number] 2018-Present [address] [place] [address] [id number]. [id number] 2018 Private Health Insurance [id number] 1960 Unknown [id number] 2.16.840.1.736281.3.579.2. 662 1962 Unknown [id number] 2.16840.1.588257.3.579.2. 355 1962 Unknown [id number] 2.16.840.1.868605.3.579.2. 1068 1962 Unknown [id number] 2.16840.1.613225.3.579.2. 356 1962 Unknown [id number] 2.16.840.1.027897.3.579.2. 356 1962 Unknown [id number] 2.16.840.1.595606.3.579.2. 356 1962 Unknown [id number] 2.16.840.1.456949.3.579.2. 356 1962 Unknown [id number] 2.16.840.1.592094.3.579.2. 356 1962 Unknown [id number] 2.16840.1.262650.3.579.2. 356 1962 Unknown [id number] 2.16.840.1.645047.3.579.2. 356 1962 Unknown [id number] 2.16.840.1.892893.3.579.2. 356 1962 Unknown [id number] 2.16.840.1.201678.3.579.2. 356 1962 Unknown [id number] 2.16.840.1.807259.3.579.2. 356 1962 Unknown [id number] 2.16.840.1.929111.3.579.2. 356 1962 Unknown [id number] 2.16.840.1.984384.3.579.2. 356 1962 Unknown [id number] 2.16.840.1.548056.3.579.2. 627 1962 Unknown [id number] 2.16.840.1.400239.3.579.2. 627 1962 Unknown [id number] 2.16.840.1.033932.3.579.2. 627 1962 Unknown [id number] 2.16.840.1.576721.3.579.2. 627 1962 Unknown [id number] 2.16.840.1.382291.3.579.2. 627 1962 Unknown [id number] 2.16.840.1.275401.3.579.2. 627 1962 Unknown [id number] 2.16.840.1.473383.3.579.2. 627 1962 Unknown [id number] 2.16.840.1.479398.3.579.2. 627 1962 Unknown [id number] 2.16.840.1.118145.3.579.2. 627 1962 Unknown [id number] 2.16.840.1.857448.3.579.2. 627 1962 Unknown [id number] 2.16.840.1.252319.3.579.2. 627 1962 Unknown [id number] 2.16.840.1.626982.3.579.2. 627 1962 Unknown [id number] 2.16.840.1.155686.3.579.2. 627 1962 Unknown [id number] 2.16.840.1.175733.3.579.2. 627 1962 Unknown [id number] 2.16.840.1.775840.3.579.2. 1245 1962 Unknown [id number] 2.16.840.1.271265.3.579.2. 124 1962 Unknown [id number] 2.16.840.1.110384.3.579.2. 124 1962 Unknown [id number] 2.16.840.1.667585.3.579.2. 1244 1962 Unknown [id number] 2.16.840.1.656470.3.579.2. 1245 1962 Unknown [id number] 2.16.840.1.587065.3.579.2. 124 1962 Unknown [id number] 2.16.840.1.600899.3.579.2. 1244 Private Health Insurance [id number] Unknown [id number] Unknown [id number] 2.16.840.1.260405.3.579.2. 462 Unknown [id number] 2.16840.1.595562.3.579.2. 462 Unknown [id number] 2.16.840.1.841898.3.579.2. 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 Type: Cigarettes. [facility] Ex-smoker (finding) [facility] Sex Assigned At [facility] Start: 07-10-2022 End: 01-15-2023 Tobacco smoking status Light tobacco smoker (finding) [facility] Start: 07-31-2022 End: 12-09-2024 Tobacco smoking status NHIS Smokes tobacco daily [facility] Start: 05-13-1979 History of tobacco use Cigarette Smoker [facility] Work Phone: Start: 07-31-2022 End: 08-26-2023 Tobacco use and exposure Smokeless tobacco non-user [facility] Work Phone: Start: 07-31-2022 End: 10-30-2022 Alcohol intake Lifetime non-drinker (finding) [facility] Work Phone: Start: 07-31-2022 End: 10-30-2022 Tobacco use panel [facility] Work Phone: Start: 1960 Sex Assigned At Not on file [facility] Work Phone: Start: 07-21-2022 End: 11-01-2023 Exposure to SARS-CoV-2 (event) Not sure [facility] Start: 08-26-2023 Tobacco Comment Smokes around 1/2 pack per week [facility] Work Phone: Start: 02-28-2024 Tobacco Comment Smokes around 1/2 pack per week. Currently smoking 3 cig per week 02/28/24. [facility] Work Phone: Start: 02-18-2024 End: 02-28-2024 Exposure to SARS-CoV-2 (event) Unable to assess [facility] Start: 1960 Sex Assigned At Male [facility] NEGATED: Highlighted row - - [facility] Work Phone: NEGATED: Highlighted rowStart: NINF History of tobacco use Passive smoker [facility] Work Phone: Functional Status Date Assessment Result Facility 01-26-2023 Functional Status ID band on, Call device within reach, Bed in low position, Wheels locked, Upper/Half-Length side-rails up, Phone within reach, Safety level maintained [facility] 01-16-2023 Functional Status Mod I Suzy [facility] 01-16-2023 Functional Status Door open, Room check performed [facility] 01-16-2023 Functional Status 3 Suzy [facility] 01-16-2023 Functional Status Suzy [facility] 01-16-2023 Functional Status Suzy [facility] 01-15-2023 Functional Status Suzy [facility] 01-15-2023 Functional Status Single level home [facility] 01-15-2023 Functional Status Suzy [facility] 01-15-2023 Functional Status Abduction pill ow, ice on [facility] 01-15-2023 Functional Status Suzy [facility] 01-15-2023 Functional Status Maintained, More than 8 hours [facility] 07-11-2022 Functional Status Door open, Room check performed [facility] 07-11-2022 Functional Status Suzy [facility] 07-11-2022 Functional Status Suzy [facility] 07-11-2022 Functional Status 3 [facility] 07-11-2022 Functional Status [facility] 07-10-2022 Functional Status Demonstrates C orrect Call Light Use Yes [facility] 07-10-2022 Functional Status Ambulating in room, Up to bathroom [facility] 07-10-2022 Functional Status Multilevel home [facility] 07-10-2022 Functional Status ice on, tension pillow in place [facility] 07-10-2022 Functional Status [facility] 07-10-2022 Functional Status Maintained [facility] 07-02-2022 Functional Status Sensory Deficits None A [facility] NEGATED: Highlighted row Functional performance Functional status health issues are not documented [facility] Work Phone: Mental Status Date Assessment Result Facility 01-26-2023 Mental Status Oriented x 4 [facility] 01-16-2023 Mental Status Oriented x 4 [facility] 01-15-2023 [facility] Status [facility] 01-15-2023 Mental Status [facility] 07-11-2022 Mental Status Oriented x 4 [facility] 07-11-2022 Mental Status [facility] NEGATED: Highlighted row Cognitive function [Interpretation] Cognitive status health issues are not documented Disease [facility] Work Phone: Clinical Notes 10-13-2020 to 12-09-2024 Note Date & Type Note Facility 12-09-2024 Discharge summary [facility] 12-09-2024 Radiology Diagnostic study note [facility] Imaging Services [address], [place] [address] Testicular with Arterial Flow MR#: [id number] Acct: [id number] Name: ILDEFONSO ROCHA Rep #: [id number] : 1960 M 64 From: Francisco Melo MD PCP: Dr. Pamela Hernandez MD Status: REG ER Study:Testicular with Arterial Flow Date of E xam: 12/09/24 Exam# [id number] Ordering Dr: Augusto Davis MD PROCEDURE: TESTICULAR WITH ARTERIAL FLOW 12/09/2024 REASON FOR EXAM: SCROTAL SWELLING, RIGHT TECHNIQUE: TESTICULAR WITH ARTERIAL FLOW COMPARISON: None FINDINGS: RIGHT testicle: 5.2 cm x 4.6 cm x 3.1 cm Right epididymis: 0.9 cm x 1.2 cm x 0.9 cm there is evidence of a epididymal cyst measuring 4 mm x 3 mm x 3 mm. LEFT testicle: 4.9 cm x 3.7 cm x 3 cm Left epididymis: 0.5 cm x 1 cm x 0.7 cm there is increased vascularity of the left epididymis suggestive of possible epididymitis. Other findings: In the right scrotal sac adjacent to the testicle, there is hyperemic tissue with scrotal thickening. There is evidence of a complex collection of fluid within the scrotal sac. This may represent an infected hydrocele assessed. US/Testicular with Arterial Flow IMPRESSION: No evidence of torsion. Inflammatory fluid seen in the right scrotal sac as described. Reading Location: [facility] CC: Dr. Augusto Davis MD; Dr. 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 11-30-2024 Evaluation note Diagnosis Onset Date Resolution Moderate major depression noneactive November 30, 2024 11:00am RALPH (obstructive sleep apnea) noneactive November 30, 2024 11:00am Smokes cigarettes noneactive November 302024 11:00am Screening for cardiovascular condition noneactive November 302024 11:00am Establishing care with new doctor, encounter for noneactive November 30, 2024 11:00am Moderate anxiety noneactive November 11:00am RLS (restless legs syndrome) noneactive November 30, 2024 11:00am History of malignant melanoma noneactive November 30, 2024 11:00am Essential hypertension noneactive 2024 11:00am Asthma-COPD overlap syndrome noneactive November 30, 2024 11:00am Chronic bilateral low back pain without sciatica noneactive November 30, 2024 11:00am Chronic deep vein thrombosis (DVT) noneactive November 30, 2024 11:00am Encounter for abdominal aortic aneurysm (AAA) screening noneactive November 30, 2024 11:00am Encounter for screening for malignant neoplasm of lung noneactive November 30, 2024 11:00am Vitamin d deficiency noneactive November 30, 2024 11:00am [facility] Work Phone: 1(308) 392-100410-18-2024 Evaluation + Plan note* Assessment & Plan Note - Nika Almanza - 02/28/2024 10:54 AM EDTAssociated Problem(s): Chronic obstructive pulmonary disease (Multi) Patient's COPD is managed currently on albuterol PRN. [facility] Work Phone: 1(752) 117-417810-18-2024 Miscellaneous Notes* Assessment & Plan Note - Nika Almanza - 02/28/2024 10:54 AM EDTAssociated Problem(s): Chronic obstructive pulmonary disease (Multi) Patient's COPD is managed currently on albuterol PRN. * Assessment & Plan Note - Nika Almanza - 02/28/2024 10:52 AM EDTAssociated Problem(s): Low back pain Patient complains of chronic low back pain that radiates down the right leg. He states it feels like muscle cramps. Patient was advised to stop taking the cyclobenzaprine because he is currently being managed by Ortho who has been prescribing tizanidine and performing corticosteroid injections withminimal relief. Patient was instructed to contact Ortho for medication refills and pain management. * Assessment & Plan Note - Nika Almanza - 02/28/2024 10:50 AM EDTAssociated Problem(s): Vitamin D deficiency Patient's vitamin D deficiency is managed on cholecalciferol. * Assessment & Plan Note - Nika Almanza - 02/28/2024 10:50 AM EDTAssociated Problem(s): Vasovagal syncope Patient reports episodes of dizziness at baseline during excessive bouts of coughing secondary to his COPD. He has synopsized in the past (years ago), but not recently (in the last few weeks). * Assessment & Plan Note - Nika Almanza - 02/28/2024 10:48 AM EDTAssociated Problem(s): Hyperlipidemia Patient's hyperlipidemia is managed on atorvastatin. Patient's last fasting blood work was collected in 11/03; all values WNL. Patient was instructed to get annual fasting blood work in 07/07 before next 4 month follow up appointment. documented in this [facility] Work Phone: 1(473) 898-108310-18-2024 Evaluation + Plan note* Assessment & Plan Note - Nika Almanza - 02/28/2024 10:52 AM EDTAssociated Problem(s): Low back pain Patient complains of chronic low back pain that radiates down the right leg. He states it feels like muscle cramps. Patient was advised to stop taking the cyclobenzaprine because he is currently being managed by Ortho who has been prescribing tizanidine and performing corticosteroid injections withminimal relief. Patient was instructed to contact Ortho for medication refills and pain management. [facility] Work Phone: 1(892) 990-775110-18-2024 Evaluation + Plan note* Assessment & Plan Note - Nika Almanza - 02/28/2024 10:50 AM EDTAssociated Problem(s): Vitamin D deficiency Patient's vitamin D deficiency is managed on cholecalciferol. [facility] Work Phone: [phone]) 309-777710-18-2024 Evaluation + Plan note* Assessment & Plan Note - Nika Almanza - 02/28/2024 10:50 AM EDTAssociated Problem(s): Vasovagal syncope Patient reports episodes of dizziness at baseline during excessive bouts of coughing secondary to his COPD. He has synopsized in the past (years ago), but not recently (in the last few weeks). [facility] Work Phone: [phone]) 970-282510-18-2024 Evaluation + Plan note* Assessment & Plan Note - Nika Almanza - 02/28/2024 10:48 AM EDTAssociated Problem(s): Hyperlipidemia Patient's hyperlipidemia is managed on atorvastatin. Patient's last fasting blood work was collected in 11/03; all values WNL. Patient was instructed to get annual fasting blood work in 07/07 before next 4 month follow up appointment. [facility] Work Phone: 1(348) 254-300610-18-2024 History of Present illness Narrative* Opal Medina MD - 02/28/2024 10:00 AM EDT Subjective Patient ID: Ildefonso Rocha is a [...] Audit Reviewed by Nika Almanza (Student Physician Store Receiver) on 02/28/24 at 1003 Medication Order Taking? Sig Documenting Provider Last Dose Status acetaminophen (Tylenol) 500 mg tablet [id number] 1 tablet (500 mg). Historical Provider, Active albuterol 90 mcg/actuation inhaler [id number] Inhale 2 puffs every 4 hours if needed for wheezing. Opal Medina MD Active apixaban (Eliquis) 5 mg tablet [id number] Take 1 tablet (5 mg) by mouth 2 times a day. Opal Medina MD Active atorvastatin (Lipitor) 20 mg tablet [id number] Take 1 tablet (20 mg) by mouth once daily. Opal Medina MD Active cholecalciferol (Vitamin D-3) 50 mcg (2,000 unit) capsule [id number] Take 1 capsule (50 mcg) by mouthonce daily. Historical Provider, Active cyclobenzaprine (Flexeril) 5 mg tablet [id number] Take 1 tablet (5 mg) by mouth as needed at bedtimefor muscle spasms (for Restless leg). Opal Medina MD Active Discontinued 02/28/24 1001 hydroCHLOROthiazide (HYDRODiuril) 50 mg tablet [id number] Take 1 tablet (50 mg) by mouth once daily.Opal Medina MD Active multivitamin capsule [id number] once daily. Historical Provider, Active axkatbfv-oiptxmgar-GU (Cortisporin) otic solution [id number] Administer 2 drops into the left ear 4 times a day. Opal Medina MD Active sertraline (Zoloft) 100 mg tablet [id number] Take 1 daily Opal Medina MD Active No Known Allergies BP 120/78 Pulse 82 Ht 1.734 m (5' 8.25) Wt 126 kg (277 lb) SpO2 96% BMI 41.81 kg/m Physical Exam Constitutional: Appearance: Normal appearance. He is obese. He is not ill-appearing, toxic- appearing or diaphoretic. Comments: Patient states he is [...] been prescribing tizanidine and performing corticosteroid injections withminimal relief. Patient was instructed to contact Ortho [...] you. Opal Medina MD [facility] Work Phone: 1(388) 201-819410-18-2024 Instructions* Patient Instructions* Opal Medina MD - 02/28/2024 10:00 AM EDT Follow up Dr Medina in 4 months for HTN etc 30 min Please get fasting labs before next appointment All Back meds should come from ortho. [facility] Work Phone: 1([phone]) 178-355106-21-2024 Evaluation + Plan note* Assessment & Plan Note - Opal Medina MD - 11/01/2023 11:05 AM EDTAssociated Problem(s): Nicotine dependence Patient is down to only about 3 cigarettes a day. We had a long discussion today and strongly encouraged him to find a way to quit smoking. I did offer him assistance with medications and we talked about things like Nicorette gum versus the NicoDerm patch. He was given the phone number for the helpline in [place] which is 1 800 quit now. Patient knows he needs to quit smoking but just has not been able to take the final step. He was reminded if he needs any help to give us a call or come in and see me. Patient was counseled about smoking cessation for approximately 7 minutes. [facility] Work Phone: 1([phone]) 719-673806-21-2024 Miscellaneous Notes* Assessment & Plan Note - Opal Medina MD - 11/01/2023 11:05 AM EDTAssociated Problem(s): Nicotine dependence Patient is down to only about 3 cigarettes a day. We had a long discussion today and strongly encouraged him to find a way to quit smoking. I did offer him assistance with medications and we talked about things like Nicorette gum versus the NicoDerm patch. He was given the phone number for the helpline in [place] which is 1 800 quit now. Patient knows he needs to quit smoking but just has not been able to take the final step. He was reminded if he needs any help to give us a call or come in and see me. Patient was counseled about smoking cessation for approximately 7 minutes. * Assessment & Plan Note - Opal Medina MD - 11/01/2023 11:03 AM EDT Associated Problem(s): Acute right-sided low back pain with right-sided sciatica Patient is currently getting injections through Dr. Meléndez in the [place] [facility] [place] for this and it is finally starting to work. * Assessment & Plan Note - Opal Medina MD - 11/01/2023 11:03 AM EDT Associated Problem(s): Current moderate episode of major depressive disorder without prior episode (Multi) Patient is taking sertraline 100 mg for his his depression. He notes it is working well he is not irritable with his and does not feel his typical agitation as long as he stays on the medication. * Assessment & Plan Note - Opal Medina MD - 11/01/2023 11:02 AM EDT Associated Problem(s): Acute deep vein thrombosis (DVT) of left lower extremity (Multi) Patient has a chronic DVT now and remains on Eliquis. He has no bruises or other problems currentlyand is tolerating the medication * Assessment & Plan Note - Opal Medina MD - 11/01/2023 11:02 AM EDT Associated Problem(s): Vasovagal syncope Patient had had [...] syncope he is to notify us immediately * Assessment & Plan Note - Opal Medina MD - 11/01/2023 11:01 AM EDT Associated Problem(s): Hypertension Blood pressure stable and well-controlled no changes were needed today. He was given a refill on his hydrochlorothiazide documented in this [facility] Work Phone: 1(129) 774-321906-21-2024 Evaluation + Plan note* Assessment & Plan Note - Opal Medina MD - 11/01/2023 11:03 AM EDTAssociated Problem(s): Acute right-sided low back pain with right-sided sciatica Patient is currently getting injections through Dr. Meléndez in the [place] [facility] for this and it is finally starting to work. [facility] Work Phone: 1([phone]) [phone] Evaluation + Plan note* Assessment & Plan Note - Opal Medina MD - 11/01/2023 11:03 AM EDTAssociated Problem(s): Current moderate episode of major depressive disorder without prior episode ( Multi) Patient is taking sertraline 100 mg for his his depression. He notes it is working well he is not irritable with his and does not feel his typical agitation as long as he stays on the medication. [facility] Work Phone: [phone]) 514-343606-21-2024 Evaluation + Plan note* Assessment & Plan Note - Opal Medina MD - 11/01/2023 11:02 AM EDTAssociated Problem(s): Acute deep vein thrombosis (DVT) of left lower extremity (Multi) Patient has a chronic DVT now and remains on Eliquis. He has no bruises or other problems currentlyand is tolerating the medication [facility] Work Phone: [phone]) 583-120206-21-2024 Evaluation + Plan note* Assessment & Plan Note - Opal Medina MD - 11/01/2023 11:02 AM EDTAssociated Problem(s): Vasovagal syncope Patient had had 2 [...] syncope he is to notify us immediately [facility] Work Phone: [phone] 194-640606-21-2024 Evaluation + Plan note* Assessment & Plan Note - Opal Medina MD - 11/01/2023 11:01 AM EDTAssociated Problem(s): Hypertension Blood pressure stable and well-controlled no changes were needed today. He was given a refill on his hydrochlorothiazide [facility] Work Phone: 1(271) 268-554306-21-2024 History of Present illness Narrative* Opal Medina MD - 11/01/2023 10:00 AM EDT Subjective Patient ID: Ildefonso Rocha is a 63 y.o. male who presents for 4 month follow up for HTN nad depression management. Patient is here for routine follow-up on medical problems including hypertension, depression, arthritis and high cholesterol. Cholesterol and liver enzymes and labs was reviewed with the patient today. Patient continues to see Dr. Meléndez at in [facility] for back injections which are finally helping. [...] Dose Status acetaminophen (Tylenol) 500 mg tablet [id number] 1 tablet (500 mg). Historical Provider, Active albuterol 90 mcg/actuation inhaler [id number] Inhale 2 puffs every 4 hours if needed for wheezing. Opal Medina MD Active apixaban (Eliquis) 5 mg tablet [id number] Take 1 tablet (5 mg) by mouth 2 times a day. Opal Medina MD Active atorvastatin (Lipitor) 20 mg tablet [id number] Take 1 tablet (20 mg) by mouth once daily. Opal Medina MD Active cholecalciferol (Vitamin D-3) 50 mcg (2,000 unit) capsule [id number] No Take 1 capsule (50 mcg) by mouth once daily. Historical Provider, Not Taking Active cyclobenzaprine (Flexeril) 5 mg tablet [id number] Take 1 tablet (5 mg) by mouth as needed at bedtimefor muscle spasms (for Restless leg). Opal Medina MD Active glucose 4 gram chewable tablet [id number] Chew if needed for low blood sugar - see comments. Historical Provider, Active hydroCHLOROthiazide (HYDRODiuril) 50 mg tablet [id number] Take 1 tablet (50 mg) by mouth once daily. Opal Medina MD Active multivitamin capsule [id number] No once daily. Historical Provider, Taking Active lhxupwua-szsoeebwi-QT (Cortisporin) otic solution [id number] Administer 2 drops into the left ear 4 times a day. Opal Medina MD Active sertraline (Zoloft) 100 mg tablet [id number] Take 1 daily Opal Medina MD Active [...] Sitting) Pulse 79 Ht 1.734 m (5' 8.25) Wt 128 kg (282 lb 6.4 oz) SpO2 94% BMI 42.62 kg/m Assessment/Plan Problem List Items Addressed This Visit Acute right-sided low back pain with right-sided sciatica Patient is currently getting injections through Dr. Meléndez in the [facility] for this and it is finally starting [...] the phone number for the helpline in [place] which is [phone] quit now. Patient [...] He has no bruises or other problems currentlyand is tolerating the medication Relevant Medications apixaban [...] you. Opal Medina MD [facility]: 1(166) 485-612306-21-2024 Instructions* Patient Instructions* Opal Medina MD - 11/01/2023 10:00 AM EDT Please call [phone] now to help stop smoking Follow up Dr Medina in 4 months for HTN, etc 30 min appointment [facility] Work Phone: [phone] Evaluation + Plan note* Assessment & Plan Note - Opal Medina MD - 07/31/2023 3:57 PM EDTAssociated Problem(s): Vasovagal syncope The most likely explanation [...] unless the patient has a third episode. [facility] Work Phone: [phone] 500-309003-20-2024 Miscellaneous Notes* Assessment & Plan Note - Opal Medina MD - 07/31/2023 3:57 PM EDTAssociated Problem(s): Vasovagal syncope The most likely explanation [...] has a third episode. documented in this [facility] Work Phone: 1([phone]) 911-595603-20-2024 History of Present illness Narrative* Opal Medina MD - 07/31/2023 3:30 PM EDT Subjective Patient ID: Ildefonso Rocha is a 63 y.o. male who presents for dizziness and general health management. Patient is here today because of a syncopal episode which occurred this past Saturday. He [place] [employer] when he suddenly became lightheaded elevated and [...] the day. He had taken his other medic ations earlier that morning prior to the episode. [...] want an extensive or thorough workup because ofthe cost Review of Systems Constitutional: Negative for [...] Dose Status acetaminophen (Tylenol) 500 mg tablet [id number] 1 tablet (500 mg). Historical ProviderMD Active albuterol 90 mcg/actuation inhaler [id number] Inhale 2 puffs every 4 hours if needed for wheezing. Opal Medina MD Active apixaban (Eliquis) 5 mg tablet [id number] Take 1 tablet (5 mg) by mouth 2 times a day. Opal Medina MD Active atorvastatin (Lipitor) 20 mg tablet [id number] Take 1 tablet (20 mg) by mouth once daily. Opal Medina MD Active cholecalciferol (Vitamin D-3) 50 mcg (2,000 unit) capsule [id number] No Take 1 capsule (50 mcg) by mouth once daily. Historical ProviderMD Not Taking Active cyclobenzaprine (Flexeril) 5 mg tablet [id number] Take 1 tablet (5 mg) by mouth as needed at bedtimefor muscle spasms (for Restless leg). Opal Medina MD Active glucose 4 gram chewable tablet [id number] Chew if needed for low blood sugar - see comments. Historical ProviderMD Active hydroCHLOROthiazide (HYDRODiuril) 50 mg tablet [id number] Take 1 tablet (50 mg) by mouth once daily. Opal Medina MD Active multivitamin capsule [id number] No once daily. Historical Provider, Taking Active iuxdlama-wwgczyxbv-FR (Cortisporin) otic solution [id number] Administer 2 drops into the left ear 4 times a day. Opal Medina MD Active sertraline (Zoloft) 100 mg tablet [id number] Take 1 daily Opal Medina MD Active [...] Sitting) Pulse 81 Ht 1.734 m (5' 8.25) Wt 128 kg (281 lb 9.6 oz) [...] you. Opal Medina MD documented in this [facility] Work Phone: [phone]) 768-459403-20-2024 Instructions* Patient Instructions* Opal Medina MD - 07/31/2023 3:30 PM EDT Set up echo with cardiology Please take medications in the morning with food documented in this [facility] Work Phone: [phone]) 470-528102-23-2024 Evaluation + Plan note* Assessment & Plan Note - Opal Medina MD - 07/05/2023 12:09 PM ESTAssociated Problem(s): Current moderate episode of major depressive disorder without prior episode ( CMS/HCC) Patient stated his mood is stable on the sertraline. [facility] Work Phone: [phone] Miscellaneous Notes* Assessment & Plan Note - Opal Medina MD - 07/05/2023 12:09 PM ESTAssociated Problem(s): Current moderate episode of major depressive disorder without prior episode (CMS/HCC) Patient stated his mood is stable on the sertraline. * Assessment & Plan Note - Opal Medina MD - 07/05/2023 12:08 PM EST Associated Problem(s): Acute deep vein thrombosis (DVT) of left lower extremity (CMS/HCC) Patient remains on Eliquis however it has been more than a year so at this time if he needs to holdit for spinal injection we can do so. I would like to reach or have his pain management physician have direct contact with that so I will to his office The information I have from the patient is that he is supposed to have a spinal injection on July 16 by [facility] and Dr. Harini Meléndez. Phone number is [phone] * Assessment & Plan Note - Opal Medina MD - 07/05/2023 12:08 PM EST Associated Problem(s): Hypertension Blood pressure stable and well-controlled. documented in this [facility] Work Phone: [phone] 486-840002-23-2024 Evaluation + Plan note* Assessment & Plan Note - Opal Medina MD - 07/05/2023 12:08 PM ESTAssociated Problem(s): Acute deep vein thrombosis (DVT) of left lower extremity (CMS/HCC) Patient remains on Eliquis however it has been more than a year so at this time if he needs to holdit for spinal injection we can do so. I would like to reach or have his pain management physician have direct contact with that so I will to his office The information I have from the patient is that he is supposed to have a spinal injection on July 16 by [place] [facility] and Dr. Harini Meléndze. Phone number is [phone] [facility] Work Phone: [phone]) [phone] Evaluation + Plan note* Assessment & Plan Note - Opal Medina MD - 07/05/2023 12:08 PM ESTAssociated Problem(s): Hypertension Blood pressure stable and well-controlled. [facility] Work Phone: [phone] History of Present illness Narrative* Opal Medina MD - 07/05/2023 11:30 AM EST Subjective Patient ID: Ildefonso Rocha is a 63 y.o. male who presents for 4 month follow for general health management. BN Is scheduled here for regular follow-up for his restless leg, hypertension and DVT. Patient remains on Eliquis but is scheduled to have a spinal injection in [place] on July 16. He mentions to me that he wants to know what to do about the Eliquis and that the pain management physicians told him to discuss it with me. I have not received anything from pain management such as a preop clearance or request for discontinuation of his anticoagulation. I will reach out to the office ofDr. Harini Mel[facility]dez at [facility]. Review of Systems Constitutional: Negative for [...] Dose Status acetaminophen (Tylenol) 500 mg tablet [id number] 1 tablet (500 mg). Historical ProviderMD Active albuterol 90 mcg/actuation inhaler [id number] Inhale 2 puffs every 4 hours if needed for wheezing. Opal Medina MD Active apixaban (Eliquis) 5 mg tablet [id number] Take 1 tablet (5 mg) by mouth 2 times a day. Opal Medina MD Active cholecalciferol (Vitamin D-3) 50 mcg (2,000 unit) capsule [id number] No Take 1 capsule (50 mcg) by mouth once daily. Historical ProviderMD Not Taking Active glucose 4 gram chewable tablet [id number] Chew if needed for low blood sugar - see comments. Historical ProviderMD Active hydroCHLOROthiazide (HYDRODiuril) 50 mg tablet [id number] Take 1 tablet (50 mg) by mouth once daily. Opal Medina MD Active Discontinued 07/05/23 1109 Discontinued 07/05/23 1109 multivitamin capsule [id number] No once daily. Historical ProviderMD Taking Active gksurdxo-dahnoeezz-YB (Cortisporin) otic solution [id number] Administer 2 drops into the left ear 4 times a day. Opal Medina MD Active sertraline (Zoloft) 100 mg tablet [id number] Take 1 daily Opal Medina MD Active [...] Sitting) Pulse 80 Ht 1.734 m (5' 8.25) Wt 126 kg (277 lb 6.4 oz) [...] at this time if he needs to holdit for spinal injection we can do so. I would like to reach or have his pain management physician have direct contact with that so I will to his office The information I have from the patient is that he is supposed to have a spinal injection on July 16 by [facility] and Dr. Harini Meléndez. Phone number is [phone] Other Visit Diagnoses Acute swimmer's ear of left side - Primary Relevant Medications kojikxdp-ltkhayjqh-ZY (Cortisporin) otic solution Hypercholesterolemia Relevant Medications atorvastatin (Lipitor) 20 mg tablet Other Relevant Orders Lipid panel Hepatic function panel RLS (restless legs syndrome) Relevant Medications cyclobenzaprine (Flexeril) 5 mg tablet It has been a pleasure seeing you. Opal Medina MD [facility] Phone: [phone] Instructions* Patient Instructions* Opal Medina MD - 07/05/2023 11:30 AM EST Get fasting s before next appointment Follow up Dr Medina in 4 months for chol etc 30 min appointment [facility] Work Phone: [phone]) 528-753609-16-2023 Hospital Discharge instructions Patient Education 01/26/2023 20:06:45 AA Marta DI(CUSTOM) Leg redness The redness in your leg [...] Document Reviewed: 04/30/2014 ExitCare Patient Information 2015 [employer]. This information is not intended to replace advicegiven to you by your health care provider. Make sure you discuss any questions you have with your health care provider. Follow Up Care 01/26/2023 19:47:06 With:GRICELDA OLIVER MD Address: [address] [place] [address] [facility] [place] [address]- [phone] When:2-4 days [facility] 09-16-2023 Note Discharge Instructions Thank you for allowing [facility] to assist you with your healthcare needs. The following is importantdischarge information regarding your hospital visit. What to Do Next Instructions from Your Care Team No qualifying data available. Post Acute Orders No qualifying data available. You Need to Schedule the Following Appointments Follow Up with GRICELDA OLIVER MD When Within 2-4 days Where: [address] [facility] [place] [place] [address]- [phone] Allergies NKA Medications Please ask your primary doctor or pharmacist before taking any other medication not listed, including over the counter drugs, herbal medications, vitamins and or supplements as they may interact withyour home medications. What How Much When Instructions [...] Document Reviewed: 04/30/2014 ExitCare Patient Information 2015 [employer] [facility]. This information is not intended to replace advicegiven to you by your health care provider. Make sure you discuss any questions you have with your health care provider. Additional Information VACCINATE! IT SAVES LIVES! Members of the community who have not yet received the COVID-19 vaccine and would like to receive it can visit one of [facility] vaccine clinics. There are many vaccine clinic locations within the [facility]. For locations and available times, please visit [email or web address] It is important to note that some COVID mobile vaccine clinics are held outdoors and may be canceled in rainy or stormy conditions. To learn more about pediatric vaccinations (ages 5-11), we invite you to visit the [facility] webpage. [email or web address] learn more about the COVID-19 vaccine, we invite you to visit the CDC website for a list of frequently asked questions. https://www.cdc.gov/coronavirus/2019-ncov/vaccines/faq.html [employer] Patient Portal Access Instructions: Stay connected with your healthcare team and access your personal medical information anytime with the [employer] Patient Portal. If you would like a full copy of your medical records please contact the [facility] Medical Records Department Saturday through Saturday between 8a.m. and 4:30p.m. Please follow the directions below to access the portal: 1.Access the email account you provided upon registration to the hospital.2.Look for an invitation email from [facility].3.Open the email and access the invitation link: Accept Invitation to [employer]4.Fill in the required benson to create your account. Sign into www.[employer] with your username and password that you [...] you will allow to register on the [facility] Patient Portal for access to your information. You can also access the [facility] Patient Portal on the [email or web address] jacklyn. Simply click on Health Records under [employer] and then click on the [employer] logo. HOW TO SAFELY DISPOSE OF PRESCRIPTION MEDICATIONS Please use one of the following methods to safely dispose of your unused medications. 1.Use a drug disposal kit: the drug disposal pouch allows you to safely discard your old and unuseddrugs. Ask your nurse to give you one when you are discharged.2.Visit a local take-back location: Many local pharmacies and police departments have programs that collect old and unwanted prescriptiondrugs. Call your local pharmacy or go to [email or web address] to find one close to you.3.Make use of household items: Use cat litter or old coffee grounds to dispose medications if other options arenot available. Mix your drugs with these household products, seal them in an airtight container andthrow it into the garbage. Call [facility]: [phone] to be sure your drugs can be [...] drowsiness, such as benzodiazepines, also known as benzos,including diazepam and alprazolam, muscle relaxants or sleep aids. Never sell or share prescriptionopioids. This is illegal. Store opioids in a [...] aware that I should contact my doctor. 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 Signature: Date/Time: Relationship to Patient: Witness Name/Signature: Date/Time: [facility] Note Date of Service 01/16/2023 Chief Complaint [...] by BECK PECK on 01/16/2023 02:24 PM [facility] Hospital Discharge instructions Patient Education 01/16/2023 11:29:25 5 - [facility] Post-op Instruction 12/2016 (Custom)(CUSTOM) [facility] Post-operative Instructions PLEASE FOLLOW [facility] POST-OP INSTRUCTIONS GIVEN WATCH FOR SIGNS OF INFECTION: call the office ([phone]) if experencing any of the following: (Usually [...] on your follow up instructions. Form: 338A (32194) R: 09/16 Follow Up Care 07/04/2022 10:35:51 With:[facility] Address: [address], [place] [id number]- [phone] When:01/21/2023 09:00:00 Comments:This is your Physical Therapy appt. With:FELIPE LAU PA-C, Orthopedic Address: [facility] [place] [address]- When:01/28/2023 13:45:00 Comments:This is your Ortho Follow up appt. [facility] 09[facility]-2023 Note Discharge Instructions Thank you for allowing [facility] to assist you with your healthcare needs. The following is importantdischarge information regarding your hospital visit. Your Care Team Gricelda Oliver MD [facility] Your Diagnosis COPD without exacerbation History of DVT in adulthood HTN (hypertension) Knee arthropathy Osteoarthritis Other acute postprocedural pain What to do next Follow Up Appointments Follow Up with FELIPE LAU PA-C, Orthopedic When 01/28/2023 01:45 PM EDT Why: This is your Ortho Follow up appt. Where: [facility] [place] [address]- Follow Up with [facility] Therapy When 01/21/2023 09:00 AM EDT Why: This is your Physical Therapy appt. Where: [address] [place] [id number]- [phone] The Following Activity and Diet Have Been [...] and or supplements as they may interact withyour home medications. What How Much When Why [...] a day Duration: 5 Days Pickup at [facility] #[id number] 01/16 @ 8am New doxycycline (doxycycline hyclate 100 mg oral capsule) 1 cap by mouth Every 12 hours Duration: 14 Days Pickup at [facility] #[id number] 01/16 @ 8am New famotidine (Pepcid 20 mg oral tablet) 1 tab(s) by mouth Once a day Pickup at [facility] #[id number] 01/16 @ 8am New ondansetron (ondansetron 4 mg oral tablet) 1 tab(s) by mouth Every 8 hours as needed for Nausea/Vomiting Pickup at [facility] #[id number] New oxyCODONE (oxyCODONE 5 mg oral tablet ( IMMEDIATE release )) 1-2 tab(s) by mouth Every 4 hours as needed for as needed for pain Knee arthropathy Other acute postprocedural pain Duration: 7 Days Pickup at [facility] #[id number] 01/16 @ 12pm Unchanged albuterol (Albuterol (Eqv-ProAir [...] 1 tab(s) by mouth Once a day 9 @ 8am Unchanged multivitamin (Multivitamin) 1 tab(s) by mouth Every day 9 @ 11am Unchanged sertraline (sertraline 100 mg oral tablet) 1 tab(s) by mouth Every day 9 @ 8am Pharmacy Information [facility] #[id number]: [address], [place] [phone] Please take this list to your next [...] Plus, Senna S, Senna-Time S, Senokot S, SenoSol- SS, Stool Softener + Stimulant Laxative, Stool Softener [...] bedtime. Docusate and senna should cause you tohave a bowel movement within 6 to 12 [...] laxative or other stool softener that may containingredients similar to docusate or senna. What are [...] may report side effects to FDA at 2-176-IAS-0664. What other drugs will affect docusate and senna? Other drugs may affect docusate and senna, including prescription and fmxj-pcb-tlhmyfz medicines, vitamins, and herbal products. Tell your doctor about all your current medicines and any medicine youstart or stop using. Where can I get more information? Your pharmacist can provide more information about docusate and senna. Remember, keep this and all other medicines out of the reach of children, never share your medicines with others, and use this medication only for the indication prescribed. Every effort has been made to ensure that the information provided by [employer]. ('[employer]') is accurate, up-to-date, and complete, but no guarantee is made to that effect. Drug information contained herein may be time sensitive. [employer] information has been compiled for use by healthcare practitioners and consumers in the [place] and therefore [employer] does not warrant that uses outside of the [place] are appropriate, unless specifically indicated otherwise. [employer] drug information does not endorse drugs, diagnose patients or recommend therapy. [employer]ments drug information isan informational resource designed to assist licensed healthcare practitioners in caring for their p atients and/or to serve consumers viewing this service as a supplement to, and not a substitute for, the expertise, skill, knowledge and judgment of healthcare practitioners. The absence of a warningfor a given drug or drug combination in no way should be construed to indicate that the drug or drug combination is safe, effective or appropriate for any given patient. [employer] does not assume any responsibility for any aspect of healthcare administered with the aid of information [employer] provides. The information contained herein is not intended to cover all possible uses, directions, precautions, warnings, drug interactions, allergic reactions, or adverse effects. If you have questions about the drugs you are taking, check with your doctor, nurse or pharmacist. Copyright 3490-2018 [employer]. Version: 5.01. Revision Date: 12/17/2022. doxycycline (oral/injection) (DOX nicki carlton) Acticlate, Adoxa, Alodox, Avidoxy, Doryx, Doryx MPC, Lymepak, Mondoxyne NL, Monodox, Morgidox, Morgidox 4g516hm, Morgidox 4m425ma, Okebo, Oracea, Targadox, Vibramycin, Vibramycin Calcium, Vibramycin [...] eye infections, gonorrhea, chlamydia, periodontitis (gum disease), andothers. Doxycycline is also used to treat blemishes, [...] effective. Ask your doctor about using a non-hormonalbirth control (condom, diaphragm with spermicide) to prevent [...] or life-threatening conditions such as anthrax or [place] spotted fever. The benefit of treating a [...] provided, or with a special dose-measuring spoon ormedicine cup. If you do not have a [...] reaction (fever, sore throat, burning in your eyes,skin pain, red or purple skin rash that spreads and causes blistering and peeling). Seek medical treatment if you have a serious drug reaction that can affect many parts of your body.Symptoms may include: skin rash, fever, swollen glands, flu- like symptoms, muscle aches, severe weakness, unusual bruising, [...] may report side effects to FDA at 0-360-URV-0454. What other drugs will affect doxycycline? Sometimes it is not safe to use certain medications at the same time. Some drugs can affect your blood levels of other drugs you take, which may increase side effects or make the medications less effective. Other drugs may affect doxycycline, including prescription and uugk-tus-ldlabyt medicines, vitamins, and herbal products. Tell your [...] to ensure that the information provided by [employer]. ('[employer]') is accurate, up-to-date, and complete, but no guarantee is made to that effect. Drug information contained herein may be time sensitive. [employer] information has been compiled for use by healthcare practitioners and consumers in the [place] and therefore [employer] does not warrant that uses outside of the [place] are appropriate, unless specifically indicated otherwise. [employer] drug information does not endorse drugs, diagnose patients or recommend therapy. [employer] drug information isan informational resource designed to assist licensed healthcare practitioners in caring for their p atients and/or to serve consumers viewing this service as a supplement to, and not a substitute for, the expertise, skill, knowledge and judgment of healthcare practitioners. The absence of a warningfor a given drug or drug combination in no way should be construed to indicate that the drug or drug combination is safe, effective or appropriate for any given patient. [employer] does not assume any responsibility for any aspect of healthcare administered with the aid of information [employer] provides. The information contained herein is not intended to cover all possible uses, directions, precautions, warnings, drug interactions, allergic reactions, or adverse effects. If you have questions about the drugs you are taking, check with your doctor, nurse or pharmacist. Copyright 8355-0049 [employer]. Version: 23.. Revision Date: 12/12/2022. oxycodone (ox [...] The extended-release form of oxycodone is for bdxvgf-tcn-qwumd treatment of pain and should not be [...] people under 18. OxyContin should not be givento a child younger than 11 years old. [...] someone with a history of drug abuse oraddiction. MISUSE CAN CAUSE ADDICTION, OVERDOSE, OR . Keep the medication in a place where others cannot get to it. Selling or giving away opioid medicine is against the law. Stop taking all other lvlujz-sny-vnhcv opioid pain medicines when you start taking extended-releaseoxycodone. Take oxycodone with food. Swallow the capsule or tablet whole to avoid exposure to a potentially fatal overdose. Do not crush, chew, break, open, or dissolve. If you cannot swallow a capsule whole, open it and sprinkle the medicine into a spoonful of puddingor applesauce. Swallow the mixture right away without [...] suddenly. Follow your doctor's instructions about tapering yourdose. Store at room temperature, away from heat, [...] where to locate a drug take-back disposal program.If there is no take-back program, flush the [...] Poison Help line at . An opioid overdosecan be fatal, especially in a child or [...] health department. Make sure any person caring foryou knows where you keep naloxone and how [...] if you have slow breathing with long pauses,blue colored lips, or if you are hard [...] may report side effects to FDA at 4-616-JHB-8535. What other drugs will affect oxycodone? You [...] drugs may affect oxycodone. This includes prescription hjvdswe-iuy-nhngzjo medicines, vitamins, and herbal products. Not all [...] to ensure that the information provided by [employer]. ('[employer]') is accurate, up-to-date, and complete, but no guarantee is made to that effect. Drug information contained herein may be time sensitive. [employer] information has been compiled for use by healthcare practitioners and consumers in the [place] and therefore [employer] does not warrant that uses outside of the [place] are appropriate, unless specifically indicated otherwise. [employer] drug information does not endorse drugs, diagnose patients or recommend therapy. [employer] drug information isan informational resource designed to assist licensed healthcare practitioners in caring for their p atients and/or to serve consumers viewing this service as a supplement to, and not a substitute for, the expertise, skill, knowledge and judgment of healthcare practitioners. The absence of a warningfor a given drug or drug combination in no way should be construed to indicate that the drug or drug combination is safe, effective or appropriate for any given patient. [employer] does not assume any responsibility for any aspect of healthcare administered with the aid of information [employer] provides. The information contained herein is not intended to cover all possible uses, directions, precautions, warnings, drug interactions, allergic reactions, or adverse effects. If you have questions about the drugs you are taking, check with your doctor, nurse or pharmacist. Copyright 1854-8487 [employer]. Version: 16.01. Revision Date: 12/14/2022. famotidine (oral/injection) (fam [place] [...] may report side effects to FDA at 6-536-JTD-5467. What other drugs will affect famotidine? Famotidine oral can make it harder for your body to absorb other medicines you take by mouth. Tell your doctor if you are taking: cefditoren; dasatinib; delavirdine; fosamprenavir; or tizanidine (if you are taking famotidine liquid). This list is not complete. Other drugs may affect famotidine, including prescription and vide-rpa-fsyefnb medicines, vitamins, and herbal products. Not all [...] to ensure that the information provided by [employer]. ('[employer]') is accurate, up-to-date, and complete, but no guarantee is made to that effect. Drug information contained herein may be time sensitive. [employer] information has been compiled for use by healthcare practitioners and consumers in the [place] and therefore [employer] does not warrant that uses outside of the [place] are appropriate, unless specifically indicated otherwise. [employer] drug information does not endorse drugs, diagnose patients or recommend therapy. [employer] drug information isan informational resource designed to assist licensed healthcare practitioners in caring for their p atients and/or to serve consumers viewing this service as a supplement to, and not a substitute for, the expertise, skill, knowledge and judgment of healthcare practitioners. The absence of a warningfor a given drug or drug combination in no way should be construed to indicate that the drug or drug combination is safe, effective or appropriate for any given patient. [employer] does not assume any responsibility for any aspect of healthcare administered with the aid of information [employer] provides. The information contained herein is not intended to cover all possible uses, directions, precautions, warnings, drug interactions, allergic reactions, or adverse effects. If you have questions about the drugs you are taking, check with your doctor, nurse or pharmacist. Copyright 0915-4264 [employer]. Version: 20.. Revision Date: 12/03/2022. Education Materials [facility] Post-operative Instructions PLEASE FOLLOW [facility] POST-OP INSTRUCTIONS GIVEN WATCH FOR SIGNS OF INFECTION: call the office ([phone]) if experencing any of the following: (Usually [...] on your follow up instructions. Form: 338A (56162) R: 09/16 Additional Information VACCINATE! IT SAVES LIVES! Members of the community who have not yet received the COVID-19 vaccine and would like to receive it can visit one of [facility] vaccine clinics. There are many vaccine clinic locations within the [facility]. For locations and available times, please visit [email or web address] It is important to note that some COVID mobile vaccine clinics are held outdoors and may be canceled in rainy or stormy conditions. To learn more about pediatric vaccinations (ages 5-11), we invite you to visit the [facility] webpage. [email or web address]/[email or web address] [email or web address].htmlTo learn more about the COVID-19 vaccine, we invite you to visit the CDC website for a list of frequently asked questions.https://www.cdc.gov/coronavirus/2019-ncov/vaccines/faq.html [employer] Patient Portal Access Instructions: Stay connected with your healthcare team and access your personal medical information anytime with the [employer] Patient Portal. Please follow the directions below to create your [employer] account: 1.Access the email account you provided upon registration to the hospital/physician office.2.Look for an invitation email from [facility].3.Open the email and access the invitation link: AcceptInvitation to [employer].4.Fill in the required benson to create your account. To access your account, visit [employer]/Meet My FriendsOneChart. Click the blue button labeled Access Patient Portal and then log in with the username and password that you created in the steps above. You will be able to view your test results, lab results, a summary of your visits, upcoming appointments and more. There is also a convenient messaging option where you can send secure messages to your p rovider. In addition, you will have the ability to download any documents or summaries to your computer and/or send the information securely to a physician. Remember that your healthcare information is confidential, so carefully consider who you will allowto register on the [employer] Patient Portal for access to your information. You can also access the [employer] Patient Portal on the [employer] [facility]where jacklyn. Simply click on Patient Portal and then log into your account. If you would like to receive a full copy of your medical records, please contact the [facility] Medical Records Department by calling [phone], Saturday through Saturday between 8 a.m. and 4:30 p.m. HOW TO SAFELY DISPOSE OF PRESCRIPTION MEDICATIONS Please use one of the following methods to safely dispose of your unused medications. 1.Use a drug disposal kit: the drug disposal pouch allows you to safely discard your old and unuseddrugs. Ask your nurse to give you one when you are discharged.2.Visit a local take-back location: Many local pharmacies and police departments have programs that collect old and unwanted prescriptiondrugs. Call your local pharmacy or go to http://[email or web address]/[email or web address] to find one close to you.3.Make use of household items: Use cat litter or old coffee grounds to dispose medications if other options arenot available. Mix your drugs with these household products, seal them in an airtight container andthrow it into the garbage. Call [facility]: [phone] to be sure your drugs can be [...] COPY. Signatures Patient Education Materials 5 - [facility] Post-op Instruction 12/2016 (Custom)(CUSTOM) Medication Leaflets docusate and senna, doxycycline (oral/inj (more content not included)... [facility] Note Date of Service 01-16-2023 Chief Complaint [...] pin site dressing was reinforced and changed overnight.Current dressing is dry. Appropriate postoperative swelling Calves [...] physical therapy at onsite physical therapy in [place]. 4. Wound dressing: Discussed with patient plan [...] plan and anticipates discharge home today. [facility] Office: Osteoarthritis Status post total knee replacement Orders: acetaminophen, Start: 01/15/23 10:01:00 EDT, Dose = 650 mg, = 2 tab(s), Oral, q4h, PRN, Temperaturegreater than 38.6 degrees C, 01/15/23 10:01:00 EDT [...] = 1 tab(s), Oral, qDay, 0, 01/15/23 10:01:00EDT Lactated Ringers Infusion 1,000 mL, Start: 01/15/23 8:54:00 EDT, Rate: 100 mL/hr, 01/15/23 8:54:00 EDT magnesium hydroxide, Start: 01/15/23 12:00:00 EDT, Dose = 30 mL, Susp-Oral, Oral, Daily, 01/15/23 10:01:00 EDT morphine, Start: 01/15/23 10:01:00 EDT, Dose = 2 mg, = 1 mL, IV Push, q1h, PRN, Pain, scale 4-6, 0,01/15/23 10:01:00 EDT multivitamin with minerals, Start: 01/15/23 12:00:00 EDT, Dose = 1 tab(s), Tab, Oral, qDayM, 0 ondansetron, Start: 01/16/23 10:01:00 EDT, Dose = 4 mg, = 2 mL, IV Push, q8h, PRN, Nausea, 01/16/2310:01:00 EDT ondansetron, Start: 01/15/23 16:00:00 EDT, Dose [...] GRICELDA OLIVER MD on 01/16/2023 08:05 AM [facility] Note ORIGINAL EXAMINATION: POSTOPERATIVE KNEE TECHNIQUE: 2 [...] Sign Date: 01/15/2023 9:33:34 AM Ordering Provider: [facility]09-05-2023 Anesthesiology Consult note Patient: ILDEFONSO ROCHA Age: 62 years Sex: Male : 1960 Associated Diagnoses: None Author: JERSEY MURPHY BOBBIN HANDLER-VOCATIONAL HORTICULTURE INSTRUCTOR Assessment Postanesthesia assessment Vitals: Vital signs from [...] by JERSEY MURPHY on 01/15/2023 08:55 AM [facility]23 Anesthesiology Consult note Patient: ILDEFONSO ROCHA Age: [...] Abscess of left leg / SNOMED CT 624804995 / Confirmed Cellulitis of leg / SNOMED CT 2937656609 / Confirmed COPD (chronic obstructive pulmonary disease) / SNOMED CT 11279229 / Confirmed Cancer of skin of face / SNOMED CT 9741144911 / Confirmed Obesity / SNOMED CT 8184892067 / Confirmed Osteoarthritis of left knee / SNOMED CT 7840277929 / Confirmed, Active Problems (9) Abscess of left leg Cancer of skin of face Cellulitis of leg COPD (chronic obstructive pulmonary disease) DVT (deep venous thrombosis) HTN (hypertension) Obesity Osteoarthritis of left knee Tobacco use Histories Past Medical History: Active COPD (chronic obstructive pulmonary disease) (45690494) Obesity (4239746195) Cancer of skin of face (2556125335) Family History: Heart disease Grandparent Stroke Grandparent Cancer Mother Procedure history: Arthroplasty of knee (83544936) on 07/10/2022 at 62 Years. Comments: 07/10/2022 8:57 Gena Ramos RN ROBOTIC ASSISTED LEFT KNEE ATHROPLASTY Abscess ([id number]) on 07/17/2021 at 61 Years. Comments: 07/21/2021 13:37 Meeta Miller LPN I&D SCROTAL ABSCESS (OFFICE) Excision of melanoma (778327203). History of hernia repair (5704526665). 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 Safe place to go: Yes Lives [...] Signs(last 24 hrs) Last Charted Heart Rate [id number] bpm (JAN 15 07:35) Resp Rate 14 br/min (JAN 15 05:40) SBP99 mmHg (JAN 15 07:35) DBP66 mmHg (JAN 15 07:35) Measurements from flowsheet : Measurements 01/15/2023 5:40 EDT Height 172.7 cm Height in inches 68 inch(es) Admission Weight 119 kg Weight Lbs 261.8 lb [place] Body Weight 68.38 kg Admission Body Mass [...] H 19(JAN 15) Glucose 102(JAN 15) Ca 9.0(JAN 15) , Lab results 01/15/2023 7:42 EDT povidone [...] Device (SCD) 01/15/2023 7:02 EDT SN - MN - Route of Administration Local SN - MN - Route of Administration Local SN - MN - Route of Administration Local SN - MN - By (Single) SN - MN - By (Single) SN - MN - By (Single) SN - MN - By (Single) SN - MN - By (Single) SN - MN - By (Single) 01/15/2023 6:55 EDT SN - CAt - Case Attendee SN - CAt - Case Attendee SN - CAt - Role Performed Turf Grower 01/15/2023 6:53 EDT SN - Irl - Irrigant Normal Saline SN - Irl - Irrigant Normal Saline SN - Irl - Irrigant Sterile Water SN - IrI - Volume In 500 mL SN - IrI - Volume In 450 mL SN - Irl - Additive BETADINE (POVIDONE IODINE) SOLUT SN - Irl - Additive IRRIGATION CHG 0.05% IRRISEPT [id number] SN - IrI - Volume Out 500 [...] SN - CAt - Role Performed Physician Store Receiver SN - CAt - Role Performed VOCATIONAL HORTICULTURE INSTRUCTOR SN - CAt - Role Performed Supervisor Area 1 SN - CAt - Role Performed Scrub 1 SN - CAt - Role Performed Mastic Sprayer 1 01/15/2023 6:42 EDT SN - Preop [...] Person #1 We May Share JEY ROCHA [phone] Designated Person #1 Relationship Spouse Designated Person [...] Method Explanation, Printed materials Preferred Spoken Language Micronesian Preferred Written Language Micronesian Teaching Evaluation Verbalizes/Nonverbally indicates understanding Total Joint Book Given Yes Safety Brochure Information Reviewed Yes Suzy Capps Video Viewed No Information Given by [...] Weight 119 kg Weight Lbs 261.8 lb [place] Body Weight 68.38 kg Admission Body Mass [...] Symptoms Ulcers/Lesions Skin Temperature Warm Skin Description Scarbro, Dry Skin Integrity Not intact Skin Moisture General Dry IV Present Present Neurological Symptoms Patient denies Extremity Movement Equal Characteristics of Speech Clear Level of Consciousness Alert Strength All Extremities Strong Tone All Extremities Normal Sensation All Extremities Intact Affect/Behavior Appropriate, Calm, Cooperative Orientation Oriented x 4 Allergies No Anesthesia Extension Set Applied Yes Fisher Hoop Net On Yes Consent Form Signed Yes Patient [...] Intake 01/14/2023 20:00 . Assessment and Plan [place] Society of Anesthesiologists (ASA) physical status classification: Class III. Anesthetic Preoperative Plan Anesthetic technique: Spinal. Postoperative pain management: adductor. Informed consent: signed by patient. Digitally Signed by JERSEY MURPHY on 01/15/2023 07:48 AM [facility]23 Note ORIGINAL EXAMINATION: CT OF THE RIGHT [...] Sign Date: 01/07/2023 3:41:18 PM Ordering Provider: [facility]08-14-2023 Evaluation + Plan note* Assessment & Plan Note - Opal Medina MD - 12/24/2022 11:26 AM EDTAssociated Problem(s): Current moderate episode of major depressive disorder without prior episode (CMS/HCC) Patient is also here today because of an predosing in his Zoloft. We increased it to 100 mg becausehis depression was getting worse. Since the increase he has felt much better and back to his old self. He is no longer down in the dumps and is no longer short tempered with his new or family. [facility] Work Phone: 1(161) 136-408308-14-2023 Evaluation + Plan note* Assessment & Plan Note - Opal Medina MD - 12/24/2022 11:26 AM EDTAssociated Problem(s): Preop examination BC and CHEM profile were both reviewed and look acceptable. Patient should do well through the surgery and he is cleared was given instructions to stop his Coumadin on January 12. [facility] Work Phone: 1([phone]) 962-792208-14-2023 Miscellaneous Notes* Assessment & Plan Note - Opal Medina MD - 12/24/2022 11:26 AM EDTAssociated Problem(s): Current moderate episode of major depressive disorder without prior episode (CMS/HCC) Patient is also here today because of an predosing in his Zoloft. We increased it to 100 mg becausehis depression was getting worse. Since the increase he has felt much better and back to his old self. He is no longer down in the dumps and is no longer short tempered with his new or family. * Assessment & Plan Note - Opal Medina MD - 12/24/2022 11:26 AM EDT Associated Problem(s): Preop examination BC and CHEM profile were both reviewed and look acceptable. Patient should do well through the surgery and he is cleared was given instructions to stop his Coumadin on January 12. * Assessment & Plan Note - Opal Medina MD - 12/24/2022 11:25 AM EDT Associated Problem(s): Acute deep vein thrombosis (DVT) [...] as soon as possible after the surgery. * Assessment & Plan Note - Opla Medina MD - 12/24/2022 11:25 AM EDT Associated Problem(s): Hypertension Blood pressure is stable and well-controlled at this time without any issues documented in this [facility] Work Phone: [phone]) 210-492208-14-2023 Evaluation + Plan note* Assessment & Plan Note - Opal Medina MD - 12/24/2022 11:25 AM EDTAssociated Problem(s): Acute deep vein thrombosis (DVT) of femoral vein of left lower extremity (CMS /HCC) Patient had a DVT last year so he is now on Eliquis. He is to hold Eliquis 3 days before surgery which will be January 12 surgery is planned for January 15. Orthopedic surgeon is aware of this and it has been recommended that he restart the Eliquis as soon as possible after the surgery. [facility] Work Phone: [phone] Evaluation + Plan note* Assessment & Plan Note - Opal Medina MD - 12/24/2022 11:25 AM EDTAssociated Problem(s): Hypertension Blood pressure is stable and well-controlled at this time without any issues [facility] Work Phone: [phone] 209-299308-14-2023 History of Present illness Narrative* Opal Medina MD - 12/24/2022 11:00 AM EDT Subjective Patient ID: Ildefonso Rocha is a [...] before which will be January 12. Patient statesunderstanding and will take his last dose the [...] replaced. He is now going to have theright knee replaced on January 15. He patient has chronic low back pain as well where he has degenerative changes. Skin: Negative for rash. Neurological: Negative for dizziness, syncope, weakness, light-headedness and headaches. Objective Medication Documentation Review Audit Reviewed by Opal Medina MD (Physician) on 12/24/22 at 1104 Medication Order Taking? Sig Documenting Provider Last Dose Status acetaminophen (Tylenol) 500 mg tablet [id number] 1 tablet (500 mg). Historical ProviderMD Active albuterol 90 mcg/actuation inhaler [id number] No Inhale 2 puffs every 4 hours if needed for wheezing.Kristen Silva MD Taking Active apixaban (Eliquis) 5 mg tablet [id number] Take 1 tablet (5 mg) by mouth 2 times a day. Opal Medina MD Active cholecalciferol (Vitamin D-3) 50 mcg (2,000 unit) capsule [id number] No Take 1 capsule (50 mcg) by mouth once daily. Kristen Silva MD Not Taking Active glucose 4 gram chewable tablet [id number] Chew if needed for low blood sugar - see comments. Kristen ProviderMD Active hydroCHLOROthiazide (HYDRODiuril) 50 mg tablet [id number] Take 1 tablet (50 mg) by mouth once daily. Opal Medina MD Active multivitamin capsule [id number] No once daily. Kristen Silva MD Taking Active sertraline (Zoloft) 100 mg tablet [id number] Take 1 daily Opal Medina MD Active [...] Sitting) Pulse 82 Ht 1.74 m (5' 8.5) Wt 122 kg (268 lb 12.8 oz) [...] Zoloft. We increased it to 100 mg becausehis depression was getting worse. Since the increase [...] a pleasure seeing you. [facility] Work Phone: [phone]) 529-108308-14-2023 Instructions* Patient Instructions* Opal Medina MD - 12/24/2022 11:00 AM EDT Rec quit smoking. Stop eliquis on 01/12/23 for surgery on 01/15/[address] Medina in 6 to 8 weeks after surgery [facility] Work Phone: [phone] 329-928408-07-2023 Evaluation + Plan note Future Appointments Future Scheduled Tests Radiology* CT Knee w/o Contrast Right 12/17/22 [facility] 08-07-2023 Evaluation + Plan note Future Scheduled Tests Radiology* CT Knee w/o Contrast Right 12/17/22 [facility] 06-20-2023 Evaluation + Plan note* Assessment & Plan Note - Opal Medina MD - 10/30/2022 12:42 PM EDTAssociated Problem(s): Acute deep vein thrombosis (DVT) of femoral vein of left lower extremity (CMS /HCC) Of DVT after his first knee surgery to stay on that Eliquis until 3 days before his knee surgery. They will restart the medication as soon as the surgery is done to prevent any recurrent DVTs. [facility] Work Phone: [phone]) [phone] Miscellaneous Notes* Assessment & Plan Note - Opal Medina MD - 10/30/2022 12:42 PM EDTAssociated Problem(s): Acute deep vein thrombosis (DVT) of femoral vein of left lower extremity (CMS/HCC) Of DVT after his first knee surgery to stay on that Eliquis until 3 days before his knee surgery. They will restart the medication as soon as the surgery is done to prevent any recurrent DVTs. * Assessment & Plan Note - Opal Medina MD - 10/30/2022 12:41 PM EDT Associated Problem(s): Current moderate episode of major depressive disorder without prior episode (CMS/HCC) Patient clearly has agitation presentation of depression but is frustrated and depressed. Encouraged him to continue walking with the dog and stay physically active we will start sertraline. He is totake half a tablet which equals 25 mg daily for the first week then increase to the full 50 mg tablet. We will reassess him in 1 month to make sure he is doing well on the medication. The purpose of the medication as well as potential side effects including but not limited to serotonin syndrome, GIupset and headaches were all reviewed with the patient. documented in this [facility] Work Phone: [phone]) [phone] Evaluation + Plan note* Assessment & Plan Note - Opal Medina MD - 10/30/2022 12:41 PM EDTAssociated Problem(s): Current moderate episode of major depressive disorder without prior episode ( CMS/HCC) Patient clearly has agitation presentation of depression but is frustrated and depressed. Encouraged him to continue walking with the dog and stay physically active we will start sertraline. He is totake half a tablet which equals 25 mg daily for the first week then increase to the full 50 mg tablet. We will reassess him in 1 month to make sure he is doing well on the medication. The purpose of the medication as well as potential side effects including but not limited to serotonin syndrome, GIupset and headaches were all reviewed with the patient. [facility] Work Phone: [phone] 177-925706-20-2023 History of Present illness Narrative* Opal Medina MD - 10/30/2022 11:30 AM EDT Subjective Patient ID: Ildefonso Rocha is a 62 y.o. male who presents for follow-up for pre-op for rightknee. BN Patient is here today with his to talk about his upcoming surgery and his depression/anxiety. Patient will be having a right total knee replacement on January 15 and wants to know that I wouldbe required to do preop clearance. Since it is too soon to do it today I told him there would be noproblem with this and they are ordering most [...] lack of movement. 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 He admits he loses his temper quickly and gets frustrated easily and it appears to be getting worseand the is in agreement. Review of Systems [...] Dose Status acetaminophen (Tylenol) 500 mg tablet [id number] Yes 1 tablet (500 mg). Historical Provider, Active albuterol 90 mcg/actuation inhaler [id number] Inhale 2 puffs every 4 hours if needed for wheezing. Historical Provider, Active apixaban (Eliquis) 5 mg tablet [id number] Take 1 tablet (5 mg) by mouth in the morning and 1 tablet (5 mg) before bedtime. Opal Medina MD Active Discontinued 10/30/22 114 cholecalciferol (Vitamin D-3) 50 mcg (2,000 unit) capsule [id number] Take 1 capsule (50 mcg) by mouthonce daily. Historical Provider, Active hydroCHLOROthiazide (HYDRODiuril) 50 mg tablet [id number] once daily. Historical Provider, Active Discontinued 10/30/22 114 multivitamin capsule [id number] once daily. Historical Provider, Active Discontinued 10/30/22 114 Discontinued 10/30/22 1148 Discontinued 10/30/22 1148 Physical [...] Sitting) Pulse 83 Ht 1.74 m (5' 8.5) Wt 124 kg (272 lb 12.8 oz) [...] active we will start sertraline. He is totake half a tablet which equals 25 mg daily for the first week then increase to the full 50 mg tablet. We will reassess him in 1 month to make sure he is doing well on the medication. The purpose of the medication as well as potential side effects including but not limited to serotonin syndrome, GIupset and headaches were all reviewed with the patient. Other Visit Diagnoses Depression screen - Primary Relevant Medications sertraline (Zoloft) 50 mg tablet It has been a pleasure seeing you. [facility]: [phone] Instructions* Patient Instructions* Opal Medina MD - 10/30/2022 11:30 AM EDT Follow up Dr Medina in 1 month for depression 30 min appointment [facility] Work Phone: [phone]) 742-940403-21-2023 Evaluation + Plan note* Assessment & Plan Note - Opal Medina MD - 07/31/2022 1:23 PM EDTAssociated Problem(s): Acute deep vein thrombosis (DVT) of femoral vein of left lower extremity (CMS/HCC) Provoked acute left-sided DVT from knee surgery. Patient will be switched from Xarelto to Eliquis 5mg twice daily for the next 6 months. After 6 months he can stop the medication and have his right total knee replaced. I recommended he not work until his right knee has been replaced. Patient may return to physical therapy at this time. [facility] Work Phone: [phone] Miscellaneous Notes* Assessment & Plan Note - Opal Medina MD - 07/31/2022 1:23 PM EDTAssociated Problem(s): Acute deep vein thrombosis (DVT) of femoral vein of left lower extremity (CMS/HCC) Provoked acute left-sided DVT from knee surgery. Patient will be switched from Xarelto to Eliquis 5mg twice daily for the next 6 months. After 6 months he can stop the medication and have his right total knee replaced. I recommended he not work until his right knee has been replaced. Patient may return to physical therapy at this time. * Assessment & Plan Note - Opal Medina MD - 07/31/2022 1:22 PM EDTAssociated Problem(s): Arthritis of both knees She had has already had left total knee replacement and needs the right one done but he will have to wait 6 months to get off the blood thinners as this is an elective surgery. In the meantime he should stay off work until his right knee has been totally replaced. * Assessment & Plan Note - Opal Medina MD - 07/31/2022 1:21 PM EDTAssociated Problem(s): Hypertension Mild elevation in blood pressure today at 132/66 but for now we will monitor. documented in this [facility] Work Phone: [phone] Evaluation + Plan note* Assessment & Plan Note - Opal Medina MD - 07/31/2022 1:22 PM EDTAssociated Problem(s): Arthritis of both knees She had has already had left total knee replacement and needs the right one done but he will have to wait 6 months to get off the blood thinners as this is an elective surgery. In the meantime he should stay off work until his right knee has been totally replaced. [facility] Work Phone: [phone] Evaluation + Plan note* Assessment & Plan Note - Opal Medina MD - 07/31/2022 1:21 PM EDTAssociated Problem(s): Hypertension Mild elevation in blood pressure today at 132/66 but for now we will monitor. [facility] Work Phone: [phone] History of Present illness Narrative* Opal Medina MD - 07/31/2022 10:45 AM EDT Subjective Patient ID: Ildefonso Rocha is a 62 y.o. male who presents for DVT post op and right knee pain. BN Patient is here today for evaluation of a DVT. On July 10 patient had a left total knee replacement. While in the follow-up patient's left legstarted swelling ultrasound was performed and showed a [...] 132/66 Pulse 84 Ht 1.778 m (5' 10) Wt 129 kg (283 lb 9.6 oz) SpO2 97% BMI 40.69 kg/m Assessment/Plan Problem List Items Addressed This Visit Circulatory Hypertension Mild elevation in blood pressure today at 132/66 but for now we will monitor. Acute deep vein thrombosis (DVT) of femoral vein of left lower extremity (CMS/HCC) Provoked acute left-sided DVT from knee surgery. Patient will be switched from Xarelto to Eliquis 5mg twice daily for the next 6 months. [...] a pleasure seeing you. documented in this [facility] Work Phone: [phone] Instructions* Patient Instructions* Opal Medina MD - 07/31/2022 10:45 AM EDT Stop Xarelto and start Eliquis 5mg twice a day Follow up Dr Medina in 3 months You are cleared for physical therapy with no limits from Dr Medina documented in this [facility] Work Phone: [phone] Note Discharge Instructions Thank you for allowing [facility] to assist you with your healthcare needs. The following is importantdischarge information regarding your hospital visit. Your Care Team Dr. Oliver Your Diagnosis Osteoarthritis of left knee COPD (chronic obstructive pulmonary disease) HTN (hypertension) Obesity Tobacco use Status post total left knee replacement What to do next Scheduled Follow-Up Appointments Appointment Type When Where Contact InformationSurgical Pre-Test 08/24/2022 08:00 AM EDT [facility] PAT CT Knee w/o Contrast Right 08/24/2022 09:30 AM EDT [facility] 09/04/2022 07:30 AM EDT [facility] Main OR Follow Up Appointments Follow Up with FELIPE LAU When 07/23/2022 02:45 PM EDT Where: [facility] [address] [place] [address] Business (1) Follow Up with OLVIN Mendez [facility] on site When 07/16/2022 11:00 AM EST [...] and or supplements as they may interact withyour home medications. What How Much When Why Instructions Last Dose New acetaminophen (acetaminophen 500 mg oral tablet) 2 tab(s) by mouth Three (3) times a day as needed for as needed for pain not to exceed 3000 mg/ day Pickup at [facility] #[id number] 07/11/22 at 0813am New docusate-senna (Senokot S 50 mg-8.6 mg oral tablet) 2 tab(s) by mouth Two (2) times a day Duration: 3 Days Take until first bowel movement, then as needed Pickup at [facility] #[id number] 07/11/22 at 0813am New doxycycline (doxycycline hyclate 100 mg oral capsule) 1 cap by mouth Every 12 hours Duration: 14 Days Pickup at [place] [id number] 07/11/22 at 0813am New famotidine (Pepcid 20 mg oral tablet) 1 tab(s) by mouth Once a day Pickup at [place] [address] 07/11/22 t 0813am New meloxicam (Mobic 7.5 mg oral tablet) 1 tab(s) by mouth Twice daily with meals Do not take any other nonsteroidal anti-inflammatories while on meloxicam/ Mobic Pickup at [facility] #[id number] start tomorrow New oxyCODONE (oxyCODONE 5 mg oral tablet ( IMMEDIATE release )) See instructions Status post total left knee replacement 1-2 tab(s) Oral q4h [id number] 07/11/22 at 1117am Changed aspirin (aspirin 81 mg oral delayed release tablet) 1 tab(s) by mouth Two (2) times a day Duration: 30 Days Take 81 mg aspirin twice daily with food for 4 weeks postoperatively for DVT prophylaxis. Pickup at [facility] #[id number] 07/11/22 at 0813am Unchanged albuterol (Albuterol (Eqv-ProAir HFA) [...] 07/11/22 at 1117am Pharmacy Information [facility] #[id number]: [address], [place] [id number] [phone] Please take this list to your next [...] FOR SIGNS OF INFECTION: call the office ([phone]) if experencing any of the following: (Usually [...] on your follow up instructions. Form: 338A (50174) R: 09/16 Additional Information VACCINATE! IT SAVES LIVES! Members of the community who have not yet received the COVID-19 vaccine and would like to receive it can visit one of [facility] vaccine clinics. There are many vaccine clinic locations within the [facility]. For locations and available times, please visit [email or web address].[place].[email or web address] It is important to note that some COVID mobile vaccine clinics are held outdoors and may be canceled in rainy or stormy conditions. To learn more about pediatric vaccinations (ages 5-11), we invite you to visit the [facility] webpage. [email or web address]/[email or web address]-Hfwzysclss-[email or web address] stions.htmlTo learn more about the COVID-19 vaccine, we invite you to visit the CDC website for a list of frequently asked questions. https://www.cdc.gov/coronavirus/2019-ncov/vaccines/faq.html [facility] Patient Portal Access Instructions: Stay connected with your healthcare team and access your personal medical information anytime with the [facility] Patient Portal.If you would like a full copy of your medical records, please contact the [facility] Medical Records Department, Saturday through Saturday between 8a.m. and 4:30p.m. Please follow the directions below to access the portal: 1.Access the email account you provided upon registration to the hospital.2.Look for an invitation email from [facility].3.Open the email and access the invitation link: Accept Invitation to [facility]4.Fill in the required benson to create your account. Sign into [email or web address] with your username and password that you [...] you will allow to register on the [facility] Patient Portal for access to your information. You can also access the [facility] Patient Portal on the [email or web address] jacklyn. Simply click on Health Records under [employer] and then click on the [facility] logo. HOW TO SAFELY DISPOSE OF PRESCRIPTION MEDICATIONS Please use one of the following methods to safely dispose of your unused medications. 1.Use a drug disposal kit: the drug disposal pouch allows you to safely discard your old and unuseddrugs. Ask your nurse to give you one when you are discharged.2.Visit a local take-back location: Many local pharmacies and police departments have programs that collect old and unwanted prescriptiondrugs. Call your local pharmacy or go to http://[employer]/9Y6Gx1v to find one close to you.3.Make use of household items: Use cat litter or old coffee grounds to dispose medications if other options arenot available. Mix your drugs with these household products, seal them in an airtight container andthrow it into the garbage. Call [facility]: [phone] to be sure your drugs can be [...] a CHART COPY. Signatures Patient Education Materials [address] [place] [address] Post-op Instruction 12/2016 (81593) Medication Leaflets My discharge plan and instructions have been reviewed and explained to me and I,ILDEFONSO ROCHA understand my current condition and have read and understand these discharge instructions. I have received a written copy of the plan/instructions. If I have questions, I am aware that I should contact my doctor. 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 Patient states that he is doing well this morning. He is having more pain in his left knee but, when he is medicated, hispain decreases. It never goes away completely but [...] Result Date: July 10, 2022 Verified By: SHYAM BARRETT MD CLINICAL STATEMENT: IMPRESSION: Satisfactory postoperative appearance of [...] Reviewed vital signs and labs results and feelthat, from hospitalist perspective, patient is optimized medically [...] by RAINE GARCIA on 07/11/2022 12:41 PM [facility]03-[facility]2023 Hospital Discharge instructions Patient Education 07/11/2022 06:33:10 5 - [facility] Post-op Instruction 12/2016 (44902) [facility] Post-operative Instructions PLEASE FOLLOW [facility] POST-OP INSTRUCTIONS GIVEN WATCH FOR SIGNS OF INFECTION: call the office ([phone]) if experencing any of the following: (Usually [...] on your follow up instructions. Form: 338A (18546) R: 09/16 Follow Up Care 06/19/2022 12:37:03 With:CESIA Mendez [facility] on site Address: When:07/16/2022 11:00:00 Comments:Physical Therapy Initial Eval on July 16, 2022 at 11am. With:FELIPE LAU Address: [facility] [address] [place] [address] [place] [address]- Business (1) When:07/23/2022 14:45:00 [facility] [place] 03-01-2023 Note Date of Service July 11, 2022 [...] Exam Vital signs stable, afebrile SCDs and CHARITO hose are in place bilaterally Patient is [...] would like his medications E scribed to Kera in [facility]. He will follow-up per postop instructions. He will contact her office with any concerns or questions upon discharge. I have reviewed the [place] Automated Rx Reporting System (OARRS) report for this patient for refill pattern and other prescriber involvement as part of the appropriate surveillance for the provision ofacute and chronic controlled medications. The report was requested and reviewed on the date of thisentry, and was considered in the prescribing process This dictation was created using voice recognition software. Phonetic and/or grammatical errors mayexist. 2. COPD (chronic obstructive pulmonary disease) 3. HTN (hypertension) 4. Obesity 5. Tobacco use Digitally Signed by FELIPE LAU PA-C on 07/11/2022 06:31 AM [facility]02-28[facility]2023 Note Date of Service 07/10/2022 Reason for Consultation Medical management Referring Physician Dr. Gricelda Oliver History of Present Illness Patient is a 62-year-old male, who follows with Dr. Opal eMdina with a past medical history significant for COPD, hypertension, obesity and tobacco use, presents to [facility] for an elective left total knee arthroplasty [...] cough, shortness of breath, chest pain, abdominal pain,nausea or dysuria. 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 Patient aware that hospitalist service was [...] SARS-CoV-2 (COVID-19) mRNA-1273 vaccine: 0.5 unknown unit (09/15/20) SARS-CoV-2 (COVID-19) mRNA-1273 vaccine: 0.5 unknown unit (08/10/20) tetanus/diphth/pertuss (Tdap) adult/adol: 0.5 mL (08/08/20) zoster vaccine, inactivated: 1 unknown unit (09/24/21) zoster vaccine, inactivated: 1 unknown unit (05/03/21) Digitally Signed by RAINE GARCIA on 07/10/2022 11:32 AM [facility]28[facility]23 Note ORIGINAL EXAMINATION: TWO XRAY VIEWS OF [...] left total knee arthroplasty. Interpreted by: Shyam Barrett MD Preliminary Report By: Shyam Barrett MD Electronically signed By Shyam Barrett MD Dictated Date: 07/10/2022 9:16:30 AM Prelim Date: 07/10/2022 9:17:56 AM Sign Date: 07/10/2022 9:17:56 AM Ordering Provider: [facility]02-28-2023 Note ORIGINAL EXAMINATION: TWO XRAY VIEWS OF [...] left total knee arthroplasty. Interpreted by: Shyam Barrett MD Preliminary Report By: Shyam Barrett MD Electronically signed By Shyam Barrett MD Dictated Date: 07/10/2022 9:16:30 AM Prelim Date: 07/10/2022 9:17:56 AM Sign Date: 07/10/2022 9:17:56 AM Ordering Provider: [facility]02-28-2023 Anesthesiology Consult note Patient: ILDEFONSO ROCHA Age: 62 years Sex: Male : 1960 Associated Diagnoses: None Author: NICOLASA BEE APRN-VOCATIONAL HORTICULTURE INSTRUCTOR Preoperative Information Anesthesia history Patient's history: negative. [...] 2.5 mg 25 mg 5 mL, Other, PREOPpharm ropivacaine 25 mg + ketorolac 15 mg + epinephrine 0.3 mg + morphine 2.5 mg 25 mg 5 mL, Other, PREOPpharm tranexamic acid PMX 1 gram(s) 100 mL, IV Piggyback, AsDirected tranexamic acid PMX 1 gram(s) 100 mL, IV Piggyback, AsDirected Continuous: (1) Lactated Ringers 1,000 mL 1,000 mL, Intravenous, 20 mL/hr PRN: (0) Problem list: Medical Abscess of left leg / SNOMED CT 461771118 / Confirmed Cellulitis of leg / SNOMED CT 1653360032 / Confirmed COPD (chronic obstructive pulmonary disease) / SNOMED CT 79402462 / Confirmed Cancer of skin of face / SNOMED CT 7095150209 / Confirmed Obesity / SNOMED CT 8505433963 / Confirmed, Active Problems (7) Abscess of left leg Cancer of skin of face Cellulitis of leg COPD (chronic obstructive pulmonary disease) HTN (hypertension) Obesity Tobacco use Histories Past Medical History: Active COPD (chronic obstructive pulmonary disease) (93750975) Obesity (3323520292) Cancer of skin of face (8759950221) Family History: Heart disease Grandparent Stroke Grandparent Cancer Mother Procedure history: Abscess (337829049) on 07/17/2021 at 61 Years. Comments: 07/21/2021 13:37 Meeta Miller LPN I&D SCROTAL ABSCESS (OFFICE) Excision of melanoma (623847239). History of hernia repair (2306799847). Comments: 06/24/2021 19:39 SANA Mahoney occured as Social History Social & Psychosocial [...] Resp Rate 15 br/min (JUL 10 05:46) RWW155 mmHg (JUL 10 05:46) DBP76 mmHg (JUL 10 05:46) Measurements from flowsheet : Measurements 07/10/2022 5:46 EST Height 172.7 cm Height in inches 68 inch(es) Admission Weight 126.7 kg Weight Lbs 278.7 lb [place] Body Weight 68.38 kg Admission Body Mass [...] Weight 126.7 kg Weight Lbs 278.7 lb [place] Body Weight 68.38 kg Admission Body Mass [...] ethnicity Skin Integrity Intact Mucous Membrane Color Scarbro IV Present Present Hand Right 07/10/2022 20 [...] no symptoms Safety Brochure Information Reviewed Yes [facility] C[facility] Video Viewed No Teaching Evaluation Verbalizes/Nonverbally indicates understanding Admission Note-Nursing Same Day Patient History (Modified) . Assessment and Plan [place] Society of Anesthesiologists (ASA) physical status classification: Class III. Anesthetic Preoperative Plan Anesthetic technique: Spinal. Regional: Spinal. Postoperative pain management: adductor canal block. Risks discussed: nausea, vomiting, headache, hypotension, allergic reaction, serious complications. Informed consent: signed by patient. Digitally Signed by NICOLASA BEE on 07/10/2022 06:44 AM [facility]12[facility]30[facility] History of Present illness Narrative * Patient is a 61-year-old male presents today with known osteoarthritis of his bilateral knees. He had injections 3 months ago which she is only getting about 1 month of relief. He states the pain today is 6 out of 10 nonradiating. He denies any instability or mechanical symptoms. He is still tryingto lose weight. He understands that he needs to be at a BMI of 40 prior to undergoing surgery. He would like a referral to medical weight loss today. I think this is reasonable. He would like a cortisone injections in both of his knees today which is reasonable. Discussion: * I discussed the conservative treatment options for severe osteoarthritis bilateral knee including but not limited to physical therapy, oral NSAIDS, activity and lifestyle modification, and corticosteroid injections. Pt has elected to try a cortisone injection today. I have explained the risk and la efits of an injection including the possibility of joint infection, bleeding, damage to cartilage, allergic reaction. Patient verbalized understanding and gave verbal consent wishes to proceed with aintraarticular cortisone injection for their knee. * Procedure * With the patient's informed verbal consent, the bilateral knees were prepped in standard sterile fashion with Chlorhexidine. The skin was then anesthetized with ethyl chloride spray and cleaned againwith Chlorhexidine. The knee was then apirated/injected with [...] warmth to the knees. Pt understands that theinjections can be repeated no sooner than 3 months. * Plan: * 1. osteoarthritis bilateral knees * PT can resume activities as tolerated. She can follow-up in 3 months, no x- rays needed. All questions were answered. * This note was created using voice recognition software and was not corrected for typographical or grammatical errors. * . [facility] Work Phone: 1(211) 617-114611-18-2022 History of Present illness Narrative* Patient is here for follow-up 4 months for his hypertension, pulmonary disease and medication management. * Patient asked for refill on tramadol which I gave him to get through the honeymoon because of leg pain and stiffness. * He notes that every morning when he wakes up he can barely get out of bed. He has pain primarily around the right lower back extending into the right buttocks and all the way down the right leg. * The left leg is also painful but the right side is worse. * He feels like he needs to stretch and get his muscles to relax in the morning before he can get up to stand and even walk to the bathroom. He says it is very uncomfortable and then as the day goes byhe slowly limbers up and is able to start walking. [facility] Work Phone: 1(875) [phone] History of Present illness Narrative* Patient is a 61-year-old male presents today with known osteoarthritis of his bilateral knees. He had injections 3 months ago which she is only getting about 1 month of relief. He states the pain today is 6 out of 10 nonradiating. He denies any instability or mechanical symptoms. He is still tryingto lose weight. He understands that he needs to be at a BMI of 40 prior to undergoing surgery. He would like a referral to medical weight loss today. I think this is reasonable. He would like a cortisone injections in both of his knees today which is reasonable. Discussion: * I discussed the conservative treatment options for severe osteoarthritis bilateral knee including but not limited to physical therapy, oral NSAIDS, activity and lifestyle modification, and corticosteroid injections. Pt has elected to try a cortisone injection today. I have explained the risk and la efits of an injection including the possibility of joint infection, bleeding, damage to cartilage, allergic reaction. Patient verbalized understanding and gave verbal consent wishes to proceed with aintraarticular cortisone injection for their knee. * Procedure * With the patient's informed verbal consent, the bilateral knees were prepped in standard sterile fashion with Chlorhexidine. The skin was then anesthetized with ethyl chloride spray and cleaned againwith Chlorhexidine. The knee was then apirated/injected with [...] warmth to the knees. Pt understands that theinjections can be repeated no sooner than 3 months. * Plan: * 1. osteoarthritis bilateral knees * PT can resume activities as tolerated. She can follow-up in 3 months, no x- rays needed. All questions were answered. * This note was created using voice recognition software and was not corrected for typographical or grammatical errors. * . DT-Nhaybviyjqep-Uzogod 210 Work Phone: 1([phone]) 771-671506-08-2022 History of Present illness Narrative* Patient is a 61-year-old male presents today with known osteoarthritis of his bilateral knees. He had injections 3 months ago which she is only getting about 1 month of relief. He states the pain today is 6 out of 10 nonradiating. He denies any instability or mechanical symptoms. He is still tryingto lose weight. He understands that he needs to be at a BMI of 40 prior to undergoing surgery. He would like a referral to medical weight loss today. I think this is reasonable. He would like a cortisone injections in both of his knees today which is reasonable. Discussion: * I discussed the conservative treatment options for severe osteoarthritis bilateral knee including but not limited to physical therapy, oral NSAIDS, activity and lifestyle modification, and corticosteroid injections. Pt has elected to try a cortisone injection today. I have explained the risk and la efits of an injection including the possibility of joint infection, bleeding, damage to cartilage, allergic reaction. Patient verbalized understanding and gave verbal consent wishes to proceed with aintraarticular cortisone injection for their knee. * Procedure * With the patient's informed verbal consent, the bilateral knees were prepped in standard sterile fashion with Chlorhexidine. The skin was then anesthetized with ethyl chloride spray and cleaned againwith Chlorhexidine. The knee was then apirated/injected with [...] warmth to the knees. Pt understands that theinjections can be repeated no sooner than 3 months. * Plan: * 1. osteoarthritis bilateral knees * PT can resume activities as tolerated. She can follow-up in 3 months, no x- rays needed. All questions were answered. * This note was created using voice recognition software and was not corrected for typographical or grammatical errors. * . BU-Qhfvvswgewni-Qcqkhj 210 Work Phone: 1(842) 731-878302-15-2022 Hospital Discharge instructions Patient Education 06/27/2021 12:15:21 Skin Abscess Skin Abscess A skin abscess is an infected area on or under your skin that contains a collection of pus and other material. An abscess may also be called a furuncle, carbuncle, or boil. An abscess can occur in oron almost any part of your body. Some [...] Follow these instructions at home: Medicines Take wcvk-dhv-zhvdyin and prescription medicines only as told by your health care provider. If you were prescribed an antibiotic medicine, take it as told by your health care provider. Do notstop taking the antibiotic even if you start [...] dressing or gauze. If soap and water arenot available, use hand surveillance sensor officer. Check your abscess every day for signs [...] 02/06/2006 Document Revised: 08/20/2019 Document Reviewed: 06/12/2018 [employer] Patient Education 2020 [employer]. 06/27/2021 12:15:19 Incision and Drainage Incision and [...] affected area is large, painful, infected, or nothealing well. Tell a health care provider about: Any allergies you have. All medicines you are taking, including vitamins, herbs, eye drops, creams, and adgn-axw-pmszops medicines. Any problems you or family members [...] provider tells you to take them. Taking betp-dve-ubzpaji medicines, vitamins, herbs, and supplements. Tests You [...] care for you for at least 24 hoursafter you leave the hospital or clinic. This [...] tube (drain) may be used to empty morefluid from the sac. Your health care provider [...] 10/23/2001 Document Revised: 03/30/2019 Document Reviewed: 03/30/2019 [employer] Patient Education 2020 [employer] 06/27/2021 12:15:16 Cellulitis Cellulitis Cellulitis is an [...] per day to relieve pain. Only take opgj-ysn-whhzasn or prescription medicines for pain, discomfort, or [...] Document Reviewed: 07/14/2012 ExitCare Patient Information 2015 [employer]. This information is not intended to replace advicegiven to you by your health care provider. Make sure you discuss any questions you have with your health care provider. Follow Up Care 06/24/2021 13:57:22 With:MARTHA SCOTT MD, Surgery, Surgery Address: [address] [facility] [place] [address] [phone] When:07/03/2021 15:00:00 Comments:Follow-up as scheduled With:Martinez Oh Address: [address] [place], [place] [phone] When:06/30/2021 11:00:00 Comments:Bring the CPAP or the chip with you. With:OPAL MEDINA MD Address: [address] [place] [address] [phone] When:07/04/2021 11:00:00 Comments:This is your post-hospital follow-up appointment. This was their first available appointment. [facility] 02-12-2022 Evaluation + Plan noteExtracted from: Title:History and Physical Author:MARLEEN AMES BOBBIN HANDLER-ADVICE LINE RN Date:06/24/21 1. Cellulitis of left thigh 2. [...] induration that is very tender to touch. [facility] does not have surgical coverage over the weekend so I have requested that the ED physician obtain CT of the left thigh to evaluate need for surgical intervention. If the patient does indeed have abscess that will require I&D then he will need transferred to [facility] for surgical consultation, if not he will be admitted at [facility]. Will ask staff to martha area of [...] PM Scheduled Provider:MARTHA SCOTT MD Location:Gen Surg [facility] Appointment Type: OV Follow Up [facility] 12-04-2021 History of Present illness Narrative* Patient [...] for typographical or grammatical errors. * . KU-Vwdngtjukspc-Igqlxh 210 Work Phone: 1([phone]) 372-729706-04-2021 History of Present illness Narrative* Patient here [...] no x-rays needed. All questions were answered. [facility] [address] Work Phone: 1([phone]) 363-801406-03-2021 History of Present illness Narrative* Patient here [...] no x-rays needed. All questions were answered. PJ-Ldszfevcxcxq-Roaoge Work Phone: Discharge summary Author Augusto Davis [facility] Note Date/Time December 09, 2024 12:5 4pm [facility] Medical Records Department [address] [place] [address] Emergency Department Summary 12/09/24 MR#: [id number] Acct: [id number] Name: ILDEFONSO ROCHA Rep # :[id number] : 1960 64 From: Augusto Davis MD PCP: Dr. Pamela Hernandez MD Status:REG ER Location: ED HPI History of Present Illness Chief Complaint: Wound Narrative Narrative: 64-year-old male, nondiabetic, presents with 1 week of right-sided scrotal pain and swelling. Thinks he has an abscess or cyst in that area. States has been swollen for about a week. He signed up with a new primary care provider, Dr. Hernandez, who suggested that he present to the emergency department for evaluation. He and his are concerned because the patient does take Eliquisfor DVT, and while he has noticed intermittent bleeding over the last week, he has not had drainage of pus from the area until today. States he has had scrotal abscesses in the same area previously. Quite frankly, he states he is here for antibiotics to help shrink the cyst. [facility] Medical History Hearing problem DVT (deep venous thrombosis) Wears dentures Wears glasses Cancer History of steroid therapy Arthritis High cholesterol Easy bruising Restless legs Back pain Smoker Sleep apnea Shortness of breath on exertion COPD (chronic obstructive pulmonary disease) Leg cramps History of pain when walking History of edema Hypertension Home Medications ?Medication ?Instructions ?Recorded ?Last Taken ?Type albuterol sulfate 90 mcg/actuation 1 puff inhalation Q 6H PRN COPD 05/31/22 Unknown History aerosol inhaler aspirin 325 mg tablet 325 mg PO DAILY SUPPLMENT Unknown History cholecalciferol (vitamin D3) 100 1,000 unit PO DAILY S UPPLEMENT 05/31/22 Unknown History mcg (4,000 unit) capsule hydrochlorothiazide 50 mg tablet 50 mg PO DAILY BP Unknown History multivitamin with minerals-folic 2 tab PO DAILY SUPPLE MENT 05/31/22 Unknown History acid 200 mcg chewable tablet (Men's Daily Gummies) apixaban 5 mg tablet 5 mg PO BID 11/30/24 Unknown History cyclobenzaprine 5 mg tablet 5 mg PO TID PRN muscle spa sm #30 11/30/24 Unknown Rx tabs duloxetine 30 mg capsule,delayed 30 mg PO QDAY #30 cap s 11/30/24 Unknown Rx release (Cymbalta) sertraline 100 mg tablet (Zoloft) 100 mg PO QDAY 11/30 Unknown History sulfamethoxazole 800 1 tab PO BID #20 tabs Unknown Rx mg-trimethoprim 160 mg tablet (Bactrim DS) Allergy/AdvReac Type Severity Reaction Status Date / Time No Known Allergies Allergy Verified 11/30/24 11:09 Family History Mother Lung cancer Depression Asthma Anxiety Arthritis Hypertension Hyperlipidemia Surgical History History of bilateral knee replacement Hx of colonoscopy Hx of hernia repair Social History adopted: No household members: spouse current occupational status: retired and disabled 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 Developed drainage of pus today. No fevers or chills, no nausea or vomiting, noother symptoms. EXAM Physical Exam Narrative Exam Narrative: Afebrile. Vital signs noted. Nontoxic-appearing. Focused chaperoned examination of the scrotum does reveal mild swelling with chafed area of skin with minimal amount of bleeding noted on the right upper scrotum. There is indurated tissue. There is scant drainage that is purulent. No true fluctuance, no crepitance. No testicular tenderness. Const Vital Signs: 12/09/24 10:18 Temperature 97.2 F L Temperature Source Temporal Pulse Rate 83 Respiratory Rate 19 H Blood Pressure 123/75 H Blood Pressure Mean 91 Pulse Ox 95 Oxygen Delivery Method Room Air MDM MDM MDM Narrative Medical decision making narrative: Differential diagnosis includes but not limited to scrotal abscess versus hematoma. I have low suspicion for Yair's gangrene or necrotizing fasciitis. History and physical does not support this. I discussed risk benefit of incision and drainage as the patient is on Eliquis. Testicular ultrasound will be obtained prior to incision and drainage if indicated. I reviewed the radiology report of the testicular ultrasound and there is no evidence of torsion. There is inflammatory fluid seen in the right scrotal sac with concern for infected hydrocele. At this point in time, given the fact thathe is on Eliquis, and he may have more of an infected hydrocele, while I do not feel that he needs emergent urological consultation, I do feel that incision anddrainage should be deferred. He will follow-up with urology in the next few days. He was given his first dose of Bactrim DS here in the emergency department and prescription written for the next 10 days. Strict return instructions were reviewed with the patient. Patient and agreeable to the plan. Disposition is discharged home in stable condition. Radiography Diagnostic Testing: Clinical Impression(s) from Imaging Studies Testicular Ultrasound 12/09/24 10:41 IMPRESSION: No evidence of torsion. Inflammatory fluid seen in the right scrotal sac as described. Reading Location: [id number] Discharge Plan Triage Chief Complaint: Wound ED Provider: Augusto Davis Dx/Rx/DC Orders Clinical Impression: Infected hydrocele, Anticoagulant long-term use Instructions: ED Hydrocele, Type Not Specified Prescriptions: New sulfamethoxazole-trimethoprim [Bactrim DS] 800-160 mg tablet 1 tab PO BID Qty: 20 0RF No Action sertraline [Zoloft] 100 mg tablet 100 mg PO QDAY apixaban 5 mg tablet 5 mg PO BID duloxetine [Cymbalta] 30 mg capsule,delayed release(DR/EC) 30 mg PO QDAY Qty: 30 1RF cyclobenzaprine 5 mg tablet 5 mg PO TID PRN (Reason: muscle spasm) Qty: 30 0RF aspirin 325 mg Tablet 325 mg PO DAILY Patient Comments: STOP 1 WEEK PRIOR TO OR hydrochlorothiazide 50 mg Tablet 50 mg PO DAILY Men's Daily Gummies 200 mcg Tablet,Chewable 2 tab PO DAILY Vitamin D3 100 mcg (4,000 unit) Capsule 1,000 unit PO DAILY albuterol sulfate 90 mcg/actuation Hfa Aerosol Inhaler 1 puff INHALATION Q6H PRN (Reason: COPD) Primary Care Provider: Pamela Hernandez Referrals: Pamela Hernandez MD [Primary Care Provider] - 2 Days for wound check Garry Celeste MD [Med Staff - Active Staff] - 2 Days for wound check Activity Restrictions/Additional Instructions: Follow-up with urology in the next 2 days for a wound check. Return to the emergency department with fever, increased swelling, new or worsening symptoms. Antibiotics as directed. Print Language: Micronesian Disposition Disposition: Home, Self Care What to do if you have Problems For any increased pain, shortness of breath, bleeding, nausea or vomiting, chestpain, or any unexpected problems, contact your Primary Care Provider. Call [facility] ([phone]) or report to the closest Emergency Room. Call 911 if necessary. 12/09/24 1254 <Electronically signed by Augusto Davis MD> Cosigner Signature (if applicable): CC: Dr. Pamela Hernandez MD ~ Signed [facility] Work Phone: Evaluation + Plan note Future Appointments Appointment Date:06/22/2022 10:30:00 AM Scheduled Provider: Location:RAD Appointment Type:CT Knee w/o Contrast Left Future Scheduled Tests Radiology* CT Knee w/o Contrast Left 06/22/22 [facility] Evaluation + Plan note Future Appointments [facility] Evaluation + Plan note Future Appointments Appointment Date:08/24/2022 09:30:00 AM Scheduled Provider: Location:RAD Appointment Type:CT Knee w/o Contrast Right Future Scheduled Tests Radiology* CT Knee w/o Contrast Right 08/24/22 [facility] Evyraation note* Diagnosis Depression screen- Primary Screening for depression Acute deep vein thrombosis (DVT) of femoral vein of left lower extremity (CMS/HCC) Current moderate episode of major depressive disorder without prior episode (CMS/HCC) Arthritis of both knees documented in this encounter [facility] Work Phone: Evaluation note* Diagnosis Chronic [...] of both knees documented in this encounter [facility] Work Phone: Evaluation note* Diagnosis Acute [...] major depressive disorder without prior episode (CMS/HCC) documented in this encounter [facility] Work Phone: Evaluation note* Diagnosis Vasovagal syncope- Primary Syncope and collapse documented in this encounter [facility] Work Phone: Evaluation note* Diagnosis Vasovagal syncope Syncope and collapse documented in this encounter [facility] Work Phone: Evaluation note* Diagnosis Vasovagal syncope Syncope and collapse documented in this encounter [facility] Work Phone: Evaluation note* Diagnosis Vasovagal syncope Syncope and collapse Syncope and collapse documented in this encounter [facility] Work Phone: Evaluation note* Diagnosis Acute [...] with nicotine-induced disorder documented in this encounter [facility] Work Phone: Evaluation note* Diagnosis Vasovagal [...] with nicotine-induced disorder documented in this encounter [facility] Work Phone: Evaluation note* Diagnosis Acute deep vein thrombosis (DVT) of other specified vein of left lower extremity (CMS/HCC)- Primary Arthritis of both knees Primary hypertension Unspecified essential hypertension Acute deep vein thrombosis (DVT) of femoral vein of left lower extremity (CMS/HCC) documented in this encounter [facility] Work Phone: Evaluation note* Diagnosis Onset Date Resolution Status Admit Date Asthma acute November 30 11:00am GERD (gastroesophageal reflu x disease) acute November 30, 2024 11:00am Rheumatoid arthritis acute November 30, 2024 11:00am Establishing care with new doctor, encounter for noneactive November 30, 2024 11:00am Essential hypertension noneactive Ju ly 2024 11:00am History of skin cancer noneactive Ju ly 2024 11:00am [facility] Work Phone: History of Present illness Narrative* [...] knee cortisone injections for an underlying osteoarthritis. GB-Bfzuouszthkg-Qmjgsd Work Phone: History of Present illness Narrative* patient presents for follow up of sleep. * He has a history of severe sleep apnea with AHI of 56. He was placed on Auto bipap * He reports doing well with bipap and is waiting for new supplies. * Current mask FFM * Current OMG * RALPH chip read:usage / days * usage 7 hours 27 minutes * [...] reports being well rested with BIPAP and lost without it * Compliance reviewed and he is compliant with usage and BiPAP continues to be medically necessary for him. * Current mask FFM * Current TempoIQ Sleep RadioScape * RALPH chip read:usage / days * usage 5 hours 47 minutes * [...] lowamount of centrals but will monitor this. HI-Guubjbtpwf-Vexge [id number] Work Phone: History of Present illness Narrative* [...] not corrected for typographical or grammatical errors.. 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 * Dr Gricelda Oliver for his knees and Dr Eliseo Braxton for his spine. * Both are at : * [address] * [facility] [address] * [phone] * fax [phone] -[facility] Work Phone: History of Present [...] these surgeons which will be done at [facility]. * Dr Gricelda Oliver for his knees and Dr Eliseo Braxton for his spine. * Both are at : * [address] * [facility] [address] * [phone] * fax [phone] [facility] Work Phone: History of Present illness Narrative* Pt is here for preop clearance for a left total knee replacement. * He has had preop clearance with an EKG, CXR and blood work at [facility] but noneof it is available to myself today and I have not reviewed it. -[facility] Work Phone: Hospital course Narrative No data available for this section [facility] Hospital Discharge instructions No data available for this section [facility] Hospital Discharge instructionsAdditional Instructions Follow-up with urology in the next 2 days for a wound check. Return to the emergency department with fever, increased swelling, new or worsening symptoms. Antibiotics as directed.[facility] Work Phone: Progress note No data available for this section [facility] Reason for referral (narrative)No reason for referral information [facility] Work Phone: Summary Purpose Family History Sibling Name Dates Details Family history of [...] Unknown Hypertension Unknown Hyperlipidemia Unknown Advance Directives Advance Directive Response Recorded Date/ Time Do you have a Healthcare Power of Gas Controller? No December 09, 2024 10:45am Procedure Findings Note Post Operative Note: PreOp D iagnosis: scrotal abscess Post-Procedure Diagnosis: Same Procedure: 1. Excision of an infected sebaceous cyst right igor scrotum, drainage of a right igor scrotal hematoma 2. 3. 4. 5. Surgeon: tracy Resident/Fellow/Other Store Receiver: none Anesthesia: gen Estimated Blood Loss (mL): [...] Referral Specialty Diagnoses / Procedures [facility] Referred To Contact Cardiology Diagnoses Vasovagal syncope Syncope and collapse Procedures Vascular US carotid artery duplex bilateral Opal Medina MD [address] [facility], [place] [address] Referral ID Status Reason Start Date Expiration Date Visits Requested Visits Authorized [id number] Authorized Perform Procedure 08/26/2023 08/25/2024 1 1 Specialty Diagnoses / Procedures Referred By [facility] Referred To Contact Radiology Diagnoses Vasovagal syncope Procedures CT head wo IV contrast Opal Medina MD [address] [facility], [place] [address] Referral ID Status Reason Start Date Expiration Date Visits Requested Visits Authorized [id number] Authorized Perform Procedure 08/26/2023 08/25/2024 1 1 Specialty Diagnoses / Procedures [facility] Referred To Contact Cardiology Diagnoses Vasovagal syncope Procedures Transthoracic Echo Limited MN ECHO TRANSTHORC R-T 2D W/WO M-MODE REC F-UP/LMTD MN DOP ECHOCARD COLOR FLOW VELOCITY MAPPING MN DOP ECHOCARD PULSE WAVE W/SPECTRAL F-UP/LMTD STD Opal Medina MD [address] [facility], [address] [place] [address] Referral ID Status Reason Start Date Expiration Date Visits Requested Visits Authorized [id number] Pending Review Perform Procedure 07/31/2023 07/30/2024 1 1 Chief Complaint and Reason for Visit Chief Complaint Admit Date EST NEW PT - [facility] SENT November 30, 2024 1 1:00am WOUND December 09, 2024 10:1 8am Reason for Visit Admit Date Moderate major depression November 30 11:00am RALPH (obstructive sleep apnea) November 30, 2024 11:00am Smokes cigarettes November 30, 2024 11:0 0am Screening for cardiovascular condition J suzette 2024 11:00am Establishing care with new doctorenrique for November 30, 2024 11:00am Moderate anxiety November 30, 2024 11:0 0am RLS (restless legs syndrome) November 30, 2024 11:00am History of malignant melanoma November 30, 2024 11:00am Essential hypertension November 30, 2024 1 1:00am Asthma-COPD overlap syndrome November 30, 2024 11:00am Chronic bilateral low back pain without sciatica November 30, 2024 11:00am Chronic deep vein thrombosis (DVT) November 30, 2024 11:00am Encounter for abdominal aortic aneurysm (AAA) screening November 30, 2024 11:00am Encounter for screening for malignant ne oplasm of lung November 30, 2024 11:00am Vitamin d deficiency November 30, 2024 11: 00am Chief Complaint Admit Date EST NEW PT - [facility] SENT November 30, 2024 1 1:00am Reason for Visit Admit Date Moderate major depression November 30 11:00am RALPH (obstructive sleep apnea) November 30, 2024 11:00am Smokes cigarettes November 30, 2024 11:0 0am Screening for cardiovascular condition J suzette 2024 11:00am Establishing care with new enrique barrientos for November 30, 2024 11:00am Moderate anxiety November 30, 2024 11:0 0am RLS (restless legs syndrome) November 30, 2024 11:00am History of malignant melanoma November 30, 2024 11:00am Essential hypertension November 30, 2024 1 1:00am Asthma-COPD overlap syndrome November 30, 2024 11:00am Chronic bilateral low back pain without sciatica November 30, 2024 11:00am Chronic deep vein thrombosis (DVT) November 30, 2024 11:00am Encounter for abdominal aortic aneurysm (AAA) screening November 30, 2024 11:00am Encounter for screening for malignant ne oplasm of lung November 30, 2024 11:00am Vitamin d deficiency November 30, 2024 11: 00am Reason for Visit Admit Date Asthma November 30, 2024 11:0 0am GERD (gastroesophageal reflux disease) J suzette 2024 11:00am Rheumatoid arthritis November 30, 2024 11: 00am Establishing care with new doctor, enrique foss for November 30, 2024 11:00am Essential hypertension November 30, 2024 1 1:00am History of skin cancer November 30, 2024 1 1:00am Chief Complaint Admit Date EST NEW PT - [facility] SENT November 30, 2024 1 1:00am WOUND December 09, 2024 10:1 8am Additional Source Comments (unrecognized sect ion and content) No Status Records FoundNo Status Records FoundNo Status Records FoundNo Status Records FoundNo Status Records FoundNo Status Records FoundNo Status Records FoundNo Status Records FoundNo Status Records FoundNo Status Records Found INFORMATION SOURCE (unrecogn ized section and content) DATE CREATED AUTHOR 07/17/2018 [facility] DATE CREATED AUTHOR AUTHOR'S ORGANIZ ATION 07/25/[address] [facility] DATE CREATED AUTHOR AUTHOR'S ORGANIZ ATION 09/29/2018 [facility] DATE CREATED AUTHOR AUTHOR'S ORGANIZ ATION 10/19/2019 [facility] DATE CREATED AUTHOR AUTHOR'S ORGANIZ ATION 07/06/2022 [facility] DATE CREATED AUTHOR AUTHOR'S ORGANIZ ATION 07/06/2022 [facility] DATE CREATED AUTHOR AUTHOR'S ORGANIZ ATION 02/20/2023 [facility] ([place] DATE CREATED AUTHOR AUTHOR'S ORGANIZ ATION 11/03/2023 [facility] DATE CREATED AUTHOR AUTHOR'S ORGANIZ ATION 11/28/2024 [facility] DATE CREATED AUTHOR AUTHOR'S ORGANIZ ATION 12/08/2024 [facility] Care Team (unrecognized sect ion and content) Care Team Personnel Name: OPAL MEDINA MD Member Role: Primary Care Physician Address: Address: [address] [place] [address] , [address] Care Team Related Persons Name: JOSEFINA SARAH Name: REBEKAH ROY Care Team Personnel Name: OPAL MEDINA MD Member Role: Primary Care Physician Address: Address: [address] [place] [address] , [address] Care Team Related Persons Name: SARAH ROCHA Name: REBEKAH ROY Care Team Personnel Name: OPAL MEDINA MD Member Role: Primary Care Physician Address: Address: [address] [place] [address] , [address] Care Team Related Persons Name: SARAH ROCHA Name: REBEKAH ROY Care Teams (unrecognized sec tion and content) Senior Boiler Operator Relationship Specialty Start Date End Date Opal Medina MD [address] [facility], [address] [address] PCP - General 02/22/18 Senior Boiler Operator Relationship Specialty Start Date End Date Opal Medina MD [address] [facility], [address] [address] PCP - General 02/22/18 Senior Boiler Operator Relationship Specialty Start Date End Date Opal Medina MD [address] [facility], [address] [address] PCP - General 02/22/18 Senior Boiler Operator Relationship Specialty Start Date End Date Opal Medina MD [address] [facility], [address] [address] PCP - General 02/22/18 Senior Boiler Operator Relationship Specialty Start Date End Date Opal Medina MD [address] [facility], [facility] [address] [place] [address] PCP - General 02/22/18 Senior Boiler Operator Relationship Specialty Start Date End Date Opal Medina MD [address] [facility], [address] [address] PCP - General 02/22/18 Opal Medina MD [address] [facility], [address] [address] PCP - MMO ACO PCP 08/12/23 Senior Boiler Operator Relationship Specialty Start Date End Date Opal Medina MD [address] [facility], [address] [address] PCP - General 02/22/18 Opal Medina MD [address] [facility], [address] [address] PCP - MMO ACO PCP 08/12/23 Senior Boiler Operator Relationship Specialty Start Date End Date Opal Medina MD [address] [facility], [address] [address] PCP - General 02/22/18 Opal Medina MD [address] [facility], [address] [address] PCP - MMO ACO PCP 08/12/23 Senior Boiler Operator Relationship Specialty Start Date End Date Opal Medina MD [address] [facility], [address] [address] PCP - General 02/22/18 Team Status: Inactive Member Role/Relationship Status Dates Dr. Pamela Hernandez MD Attending Provider Active Start: November 30, 2024 End: November 30, 2024 Team Status: Active Member Role/Relationship Status Dates Dr. Pamela Hernandez MD Primary Care Provider Active Team Status: Inactive Member Role/Relationship Status Dates Dr. Pamela Hernandez MD Attending Provider Active Start: November 30, 2024 End: November 30, 2024 Team Status: Inactive Member Role/Relationship Status Dates Dr. Pamela Hernandez MD Primary Care Provider Active Start: December 02, 2024 End: December 02, 2024 Dr. Pamela Hernandez MD Attending Provider Active Start: December 02, 2024 End: December 02, 2024 Dr. Pamela Hernandez MD Referring Provider Active Start: December 02, 2024 End: December 02, 2024 Team Status: Inactive Member Role/Relationship Status Dates Dr. Pamela Hernandez MD Primary Care Provider Active Start: December 09, 2024 End: December 09, 2024 Augusto Davis MD Emergency Provider Active Star t: December 09, 2024 End: December 09, 2024 Reason for Visit (unrecogniz ed section and content) Specialty Diagnoses / Procedures Referred By Contac t Referred To Contact Cardiology Diagnoses Vasovagal syncope Procedures Transthoracic Echo Limited MN ECHO TRANSTHORC R-T 2D W/WO M-MODE REC F-UP/LMTD MN DOP ECHOCARD COLOR FLOW VELOCITY MAPPING MN DOP ECHOCARD PULSE WAVE W/SPECTRAL F-UP/LMTD STD Opal Medina MD [address] [facility], [facility] [address] [place] [address] Referral ID Status Reason Start Date Expiration Date Visits Requested Visits Authorized [id number] Authorized Perform Procedure 07/31/2023 07/30/2024 1 1 Specialty Diagnoses / Procedures Referred By Contac t Referred To Contact Radiology Diagnoses Vasovagal syncope Procedures CT head wo IV contrast Opal Medina MD [address] [facility], [facility] [address] [place] [address] Referral ID Status Reason Start Date Expiration Date Visits Requested Visits Authorized [id number] Authorized Perform Procedure 08/26/2023 08/25/2024 1 1 Specialty Diagnoses / Procedures Referred By Contac t Referred To Contact Cardiology Diagnoses Vasovagal syncope Syncope and collapse Procedures Vascular US carotid artery duplex bilateral Opal Medina MD [address] [facility], [facility] [address] [place] [address] Referral ID Status Reason Start Date Expiration Date Visits Requested Visits Authorized [id number] Authorized Perform Procedure 08/26/2023 08/25/2024 1 1 [...] BE BASED ON THE PRIMARY CLINICAL RECORDS. [facility] [employer] provides no warranty or guarantee of the accuracy or completeness of information in this document.
== END 2024-12-09 13:01 | disposition home or self-care (01) ==
PROVIDERS: Emergency Provider Emergency Medicine; PCP Internal Medicine; Visit Provider Emergency Medicine
DX: N43.1 Infected hydrocele (principal); J44.9 Chronic obstructive pulmonary disease, unspecified; Z86.718 Personal history of other venous thrombosis and embolism; N50.82 Scrotal pain; F17.210 Nicotine dependence, cigarettes, uncomplicated; Z79.01 Long term (current) use of anticoagulants; E78.00 Pure hypercholesterolemia, unspecified; I10 Essential (primary) hypertension; Z79.82 Long term (current) use of aspirin; Z79.899 Other long term (current) drug therapy; Z96.653 Presence of artificial knee joint, bilateral
CPT/HCPCS: 76870; 93976; 99282

== ENCOUNTER → 2024-12-18 | Outpatient (CLI) | payer MEDICARE, SELFPAY ==
--- NOTE | 2024-12-18 07:31 | AAAS_ITS ---
Reason For Study Reason For Study: Screening Aorta Measurements Aorta Doppler Measurements Proximal aorta measures1.88cm x 1.88cm. in cross-sectional Peak systolic flow velocities within the proximal aorta axis. measure 85 cm/sec. Proximal aorta measures1.76cm. in longitudinal axis. Peak systolic flow velocities within the mid aorta measure Mid aorta measures1.93cm x 1.97cm. in cross-sectional axis. 76 cm/sec. Mid aorta measures1.82cm. in longitudinal axis. Peak systolic flow velocities within the distal aorta Distal aorta measures1.78cm x 1.90cm. in cross-sectional measure 80 cm/sec. axis. Distal aorta measures1.68cm. in longitudinal axis. Left Iliac Artery Left iliac artery measures 1.11cm x 1.01 cm. in the cross-sectional axis. Left iliac artery measures 0.98 cm. in the longitudinal axis. Peak systolic velocity in the left iliac artery measures 114 cm/sec. Right Iliac Artery Right iliac artery measures 1.06cm x 1.17 cm. in the cross-sectional axis. Right iliac artery measures 1.03 cm. in the longitudinal axis. Peak systolic velocity in the right iliac artery measures 92 cm/sec. VL/AAA Screening Interpretation Summary Aorta patent, normal caliber Bilateral iliac arteries patent, normal caliber Ordering Physician: Pamela Hernandez Referring Physician: Pamela Hernandez Performed By: Francesca Koch, RDJAYNE, RVT
--- NOTE | 2024-12-18 07:31 | VDLE_ITS ---
Reason For Study Reason For Study: Swelling LLE RIGHT LEFT CFV is compressible, spontaneous, phasic, competent GSV is normal. and demonstrates normal augmentation. CFV is compressible, spontaneous, phasic, competent, Procedure and demonstrates normal augmentation. This is a venous duplex using B-mode, color flow and FV is compressible, spontaneous, phasic, competent spectral Doppler. and demonstrates normal augmentation. Exam performed in department. POP V is compressible, spontaneous, phasic, competent A preliminary report was called and/or faxed to and demonstrates normal augmentation. Mary. T/P Trunk is compressible. PTV is compressible. LT PerV is compressible. Lt GastrocV is partially compressible with bright intraluminal echoes consistent with chronic DVT. VL/Venous Duplex US, Unilateral Interpretation Summary Chronic deep vein thrombosis is noted in the left gastrocnemius vein. Ordering Physician: Pamela Hernandez Referring Physician: Pamela Hernandez Performed By: Francesca Koch, IGOR, RVT
--- NOTE | 2024-12-18 07:31 | CT_ITS ---
PROCEDURE: LOW DOSE CT LUNG SCREENING 12/18/2024 REASON FOR EXAM: SCREENING Current smoker. Patient has smoked 1 pack per day for 46 years. TECHNIQUE: LOW DOSE CT LUNG SCREENING Coronal and Sagittal reconstruction series were provided. One or more dose reduction techniques were used (e.g., Automated exposure control, adjustment of the mA and/or kV according to patient size, use of iterative reconstruction technique). REFERENCE LINK: [facility] Lung-RADS RADIATION DOSE SUMMARY: CTDlvol: 4.02 mGy DLP: 138.93 mGycm COMPARISON: None FINDINGS: PULMONARY NODULES: (Only nodules >3mm are reported) Nodules described below are on series 1 unless otherwise specified. Pulmonary Nodules: No suspicious pulmonary nodule seen. Hardware:None Lymph Nodes:No significant lymph node seen. Heart and Vasculature:The heart is nonenlarged Coronary Artery Calcifications: Present Lungs and Airways: Mild linear scarring at the lung bases. Small bulla at the left lower lobe. Pleura:No pleural effusion Upper Abdomen:Unremarkable Bones:Degenerative changes of the thoracic spine. CT/Low Dose CT Lung Screening IMPRESSION: No suspicious pulmonary nodule is seen. Coronary artery calcification (CAC) is is present Lung-RADS Category: 2 BENIGN (BASED ON IMAGING FEATURES OR INDOLENT BEHAVIOR). RECOMMEND 12-MONTH SCREENING LDCT. Other Significant Findings: Reading Location: [facility]
--- OUTSIDE RECORDS SUMMARY | 2024-12-18 07:43 | XMS RPT_ITS | CCD ---
Author Organization [facility] CliniSyoh Care Team Providers Care Warp Placer Name Role Phone OPAL MEDINA Attending Unavailable ADAM, OPAL M Primary Care Unavailable CURT SOUSA Admitting Unavailable CURT SOUSA Attending Unavailable Curt Sousa Attending Unavailable Curt Sousa Referring Unavailable UNKNOWN, PCP [place] Primary Care Unavailable Curt Sousa Admitting Unavailable [place], Opal Unavailable Unavailable Shirley Brunson Unavailable Unavailable [place], Opal M Unavailable Unavailable Unknown, Referring Provider Unavailable Unav ailable Martinez Oh Unavailable Unavailabl e Curt Sousa Unavailable Unavailable Sidor, Monica A Unavailable Unavailable [place], Opal Unavailable Unavailable Adam, Opal M Unavailable Unavailable Unavailable DR OPAL MEDINA MD Primary Care Physician Snehal vailable Unavailable Unavailable DR OPAL MEDINA MD Primary Care Physician Snehal vailable Geo, Dr. Gricelda Vivar Attending Unav ailable Geo, Dr. Gricelda Vivar Referring Unav ailable [place], Dr. Opal Yanez Primary Care Unava ilable [place], Dr. Opal Yanez Attending Unava ilable [place], Dr. Opal Yanez Primary Care Unava ilable Adam, Dr. Opal Yanez Referring Unava ilable Adam, Dr. Opal Yanez Primary Care Unava ilable [place], Dr. Opal Yanez Attending Unava ilable [place], Dr. Opal Yanez Referring Unava ilable [place], Dr. Opal Yanez Primary Care Unava ilable [place], Dr. Opal Yanez Attending Unava ilable [place], Dr. Opal Yanez Referring Unava ilable [place], Dr. Opal Yanez Attending Unava ilable [place], Dr. Opal Yanez Referring Unava ilable [place], Dr. Opal Yanez Primary Care Unava ilable [place], Dr. Opal Yanez Attending Unava ilable [place], Dr. Opal Yanez Referring Unava ilable Adam, Dr. Opal Yanez Primary Care Unava ilable Adam, Dr. Opal Yanez Attending Unava ilable [place], Dr. Opal Yanez Referring Unava ilable [place], Dr. Opal Yanez Primary Care Unava ilable Guardado, Dr. Gricelda Vivar Attending Unav ailable Adam, Dr. Opal Yanez Primary Care Unava ilable Adam, Dr. Opal Yanez Attending Unava ilable Adam, Dr. Opal Yanez Referring Unava ilable [place], Dr. Opal Yanez Primary Care Unava ilable [place], Dr. Opal Yanez Primary Care Unava ilable MD MARTINEZ [place] Attending Unavail able MD MARTINEZ [place] Referring Unavail able Geo, Dr. Gricelda Vivar Referring Unav ailable Sparrow, Anabelle Yuli Smithn Attending Unavailab le [place], Dr. Opal Yanez Primary Care Unava ilable Adam, Dr. Opal Yanez Primary Care Unava ilable Guardado, Dr. Gricelda Vivar Attending Unav ailable Guardado, Dr. Gricelda Vivar Referring Unav ailable [place] Opal COURTNEY Primary Care Provider ADAM COURTNEY, [...] MD, DR GRICELDA Piña Attending Unavailab aurelio GARCIA APRN-MATERIAL EXPEDITER, RAINE M Consulting Unavaila kenn MEDINA MD, DR OPAL Wilson Primary Care Unavailgia OLIVER MD, DR GRICELDA Piña Admitting Unavailab Simone COURTNEY, DR GRICELDA Piña Referring Unavailab aurelio OLIVER MD, DR GRICELDA Piña Attending Unavailab aurelio PECK APRN-MATERIAL EXPEDITER, BECK L Consulting Katerine MEDINA MD, DR [...] MD, DR GRICELDA Piña Attending Unavailab aurelio Medina MD, Opal Wilson Unavailable ADAM, OPAL M Primary Care Unavailable ADAM, OPAL M Referring Unavailable ADAM, OPAL M Primary Care Unavailable ADAM, OPAL M Primary Care Unavailable ADAM, OPAL M Referring Unavailable ADAM, OPAL M Primary Care Unavailable ADAM, OPAL M Referring Unavailable ADAM, OPAL M Primary Care Unavailable ADAM, OPLA M Primary Care Unavailable ADAM, OPAL M Attending Unavailable ADAM, OPAL M Primary Care Unavailable Mary COURTNEY, Dr. Santiago Attending Provider Mary COURTNEY, Dr. Santiago Primary Care Provider Mary COURTNEY, Dr. Santiago Referring Provider Augusto Davis MD Emergency Provider [phone] Pamela Hernandez Attending Unavailable Pamela Hernandez Referring Unavailable Pamela Hernandez Primary Care Unavailable Pamela Hernandez Primary Care Unavailable Augusto Davis Attending Unavailable Pamela Hernandez Primary Care Unavailable [...] tablet by mouth every six hours HYDROcodone-acetaminophen (Melvin) 5-325 mg tablet Take 1 tablet by mouth every 6 hours. 0 02/25/2023 07/05/2023 Discontinued (Med List Cleanup) [id number] 200 actuat albuterol 0.09 mg/actuat metered dose [...] QID, # 40 cap(s), 0 Refill(s), Pharmacy: [facility] [id number], 177, cm, 06/24/21 19:36:00 [...] Start: 05-17-2017 take 1 capsule by mo uth once daily cholecalciferol (Vitamin D-3) 50 mcg [...] Active Start: 06-09-2018 take 1 tablet by zoraida th at bedtime Cyclobenzaprine HCl - 10 MG [...] Ordered docusate sodium 50 mg / sennosides, fpc 8.6 mg oral tablet (2 sources) Start: 01-16-2023 End: 01-21-2023 take 1 tablet by mouth twice daily Senokot S 50 mg-8.6 mg oral tablet Dose = 2 tab(s), Oral, BID, X 5 day(s), # 20 tab(s), 0 Refill(s), [facility]acy: [facility] #[id number], 172.7, cm, 01/15/23 10:08:00 EDT, Height, kg, 01/15/23 10:08:00 EDT, Dosing Weight Start Date: 01/16/23 Stop Date: 01/21/23 Status: Ordered Start: 07-11-2022 End: 07-14-2022 take 1 tablet by mouth twice daily Senokot S 50 mg-8.6 mg oral tablet Dose = 2 tab(s), Oral, BID, Take until first bowel movement, then as needed, X 3 day(s), # 12 tab(s), 0 Refill(s), [facility]: [facility] #[id number], 172.7, cm, 07/10/22 9:49:00 EST, Height Start Date: 07/11/22 Stop Date: 07/14/22 Status: Ordered doxycycline hyclate 100 mg oral capsule (3 sources) Tetracycline-class Drug Start: 01-16-2023 End: 01-30-2023 doxycycline hyclate 100 mg oral capsule Dose : 100 mg = 1 cap(s), Oral, q12h, X 14 day(s), # 28 cap(s), 0 Refill(s), 01/30/23 8:07:00 AM EDT, [facility]acy: [facility] #[id number], 172.7, cm, 01/15/23 10:08:00 EDT, Height, 119, kg, 01/15/23 10:08:00 EDT, Dosing Weight Start Date: 01/16/23 Stop Date: 01/30/23 Status: Ordered Start: 07-11-2022 End: 07-25-2022 doxycycline hyclate 100 mg o ral capsule Dose : 100 mg = 1 cap(s), Oral, q12h, X 14 day(s), # 28 cap(s), 0 Refill(s), 07/25/22 6:34:00 EDT, Pharmacy: [facility] #[id number], 172.7, cm, 07/10/22 9:49:00 EST, Height, 126.7 Start Date: 07/11/22 Stop Date: 07/25/22 Status: Ordered DULoxetine 30 mg delayed release oral capsule (2 sources) Serotonin and Norepinephrine Reuptake Inhibitor Start: 11-30-2024 take 1 capsule by mouth once daily Duloxetine (Cymbalta) 30 mg capsule,delayed release(DR/EC) Active 30 mg PO daily 11 06November 30, 2024 12:00am famotidine 20 mg oral tablet (4 sources) Histamine-2 Receptor Antagonist Start: 01-16-2023 Pepcid 20 mg oral tablet Dose : 20 mg = 1 tab(s), Oral, qDay, # 30 tab(s), 0 Refill(s), Pharmacy: [facility] #[id number], 172.7, cm, 01/15/23 10:08:00 EDT, Height, kg, [...] / neomycin 3.5 mg/ml / polymyxin b [id number] unt/ml otic solution (8 sources) Aminoglycoside Antibacterial, Polymyxin-class Antibacterial, Corticosteroid Start: 07-05-2023 [id number]-PM (Cortisporin) otic solution Indications: Acute swimmer's ear [...] 0 Refill(s), 01/23/23 8:08:00 AM EDT, Pharmacy: [facility] #[id number], 172.7, cm, 01/15/23 10:08:00 EDT, Height, kg, [...] 0 Refill(s), 01/23/23 8:08:00 AM EDT, Pharmacy: [facility] #[id number], Knee arthropathy Other acute postprocedural pain, 172.7, [...] tab(s), 0 Refill(s), 07/18/22 6:35:00 EST, Pharmacy: [facility] #[id number], Status post total left knee replacement, 172.7, [...] 1 {tbl} PO TWICE A DAY 20 December 09, 2024 12:00am Start: 01-26-2023 End: [...] day(s), # 20 tab(s), 0 Refill(s), Pharmacy: [facility] [id number], 177, cm, 06/24/21 19:36:00 EST, Height, [...] 02/17/2024 Active Vitamin D3 (3 sources) Start: 02-13-2022 Vitamin D3 Dos e : 1,000 unit(s) [...] c heek approx 2006; Melanomas of skin (5 sources) H/O Malignant melanoma; Translations: [Personal history of malignant melanoma of skin] Onset: 5 11-30-2024 Episodic Mood disorders (16 [...] Resolved: 3 Chronic Other aftercare (1 source) USP (current) use of aspirin; Translations: [USP (current) use of aspirin] Onset: 9 Episodic Other aftercare (1 source) Long-term current use of anticoagulant; Translations: [USP (current) use of anticoagulants] 12-09-2024 Episodic Other [...] Test Name Value Interpretation Reference Range Facility Emergency Department Summary on 12-09-2024 Emergency Department Summary [facility] Medical Records Department [address] [place] [address] Emergency Department Summary 12/09/24 MR#: [id number] Acct: [id number] Name: ILDEFONSO ROCHA Rep #: [id number] : 1960 64 From: Augusto Davis MD [...] are concerned because the patient does take Eliquis for DVT, and while he has noticed intermittent bleeding over the last week, he has not had drainage of pus from the area until today. States he has had scrotal abscesses in the same area previously. Quite frankly, he states he is here for antibiotics to help shrink the cyst. [facility] Medical History Hearing problem DVT (deep venous thrombosis) Wears dentures Wears glasses Cancer History of steroid therapy Arthritis High cholesterol Easy bruising Restless legs Back pain Smoker Sleep apnea Shortness of breath on exertion COPD (chronic obstructive pulmonary disease) Leg cramps History of pain when walking History of edema Hypertension Home Medications ???Medication ???Instructions ???Recorded ???Last Taken ???Type albuterol sulfate 90 mcg/actuation 1 puff inhalation Q6H PRN COPD 0 05/31/22 Unknown History aerosol inhaler aspirin 325 mg tablet 325 mg PO DAILY SUPPLMENT 05/31/22 Unknown History cholecalciferol (vitamin D3) 100 1,000 unit PO DAILY SUPPLEMENT Unknown History mcg (4,000 unit) capsule hydrochlorothiazide 50 mg tablet 50 mg PO DAILY BP 05/31/22 Unknown History multivitamin with minerals-folic 2 tab PO DAILY SUPPLEMENT 05/31/22 Unknown History acid 200 mcg chewable tablet (Men's Daily Gummies) apixaban 5 mg tablet 5 mg PO BID 11/30/24 Unknown Histo ry cyclobenzaprine 5 mg tablet 5 mg PO TID PRN muscle spasm #30 0 11/30/24 Unknown Rx tabs duloxetine 30 mg capsule,delayed 30 mg PO QDAY #30 caps 11/30/24 Un known Rx release (Cymbalta) sertraline 100 mg tablet (Zoloft) 100 mg PO QDAY 11/30/24 Unknown H istory sulfamethoxazole 800 1 tab PO BID #20 tabs 12/09/24 Unk nown Rx mg-trimethoprim 160 mg tablet (Bactrim DS) Allergy/AdvReac Type Severity Reaction Status Date / Time No Known Allergies Allergy Verified 11/30/24 11:09 Family History Mother Lung cancer Depression Asthma Anxiety Arthritis Hypertension Hyperlipidemia Surgical History History of bilateral knee replacement Hx of colonoscopy Hx of hernia repair Social History adopted: No household members: spouse current occupational status: retired and disabled 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 EXAM Physical Exam Narrative Exam Narrative: [...] obtained prior to incision and drainage if indica (more content not included)... Normal [facility] Testicular with Arterial Fabien won 12-09-2024 Testicular with Arterial Flow [facility] Imaging Services [address] [place], [place] [id number] Testicular with Arterial Flow MR#: [id number] Acct: [id number] Name: ILDEFONSO ROCHA Rep #: [id number] : 1960 M 64 From: Cooper schroeder MD PCP: Dr. Pamela Hernandez MD Status: REG ER Study: Testicular with Arterial Flow Date of Exam: Exam# [id number] Ordering Dr: Augusto Davis MD PROCEDURE: TESTICULAR [...] right scrotal sac as described. Reading Location: [facility] CC: Dr. Augusto Davis MD; Dr. Pamela Hernandez MD Clip Coater: Signed Normal [facility] Absolute lymphocyte countOrd ered By: Pamela Hernandez on 12-02-2024 Lymphocytes Auto (Unsp spec) [#/Vol] 2.83 10*3/uL 0.83-4.51 [facility] Absolute neutrophil countOrd ered By: Pamela Hernandez on 12-02-2024 Neutrophils (Bld) [#/Vol] 4.3 10*3/uL 2.0-7.7 [facility] Anion gap in Serum or Plasma Ordered By: Pamela Hernandez on 12-02-2024 Anion gap [Moles/Vol] 10 mmol/L 5-15 [facility] Automated lymphocyte count a s percentage of total leukocytesOrdered By: Pamela Hernandez on 12-02-2024 Lymphocytes/100 WBC Auto (Unsp spec) 33.4 % 19-41 [facility] BUN/creatinine ratioOrdered By: Pamela Hernandez on 12-02-2024 Urea nitrogen/Creatinine [Mass ratio] 14.1 mg/mg 10-20 [facility] Basophil percentageOrdered B y: Pamela Mary on 12-02-2024 Basophils/100 WBC (Bld) 1.3 % High 0-1 [facility] Bilirubin, totalOrdered By: Pamela [place] on 12-02-2024 Bilirubin [Mass/Vol] 0.40 mg/dL 0.00-1.30 [facility] CBC W/Diff, Automatedon 11-11 Absolute Lymph 2.83 X10 3/uL Normal 0.83-4.51 [facility] Comment on above: Performed By: #### L 500.4050, L506.1001, L100.0100, L500.4100 #### [facility] [address] [place], [address] Absolute Neut 4.3 X10 3/uL Normal 2.0-7.7 [facility] Comment on above: Performed By: #### L 500.4050, L506.1001, L100.0100, L500.4100 #### [facility] [address] [place], [address] Basophils/100 WBC (Bld) 1.3 % High 0-1 [facility] Comment on above: Performed By: #### L 500.4050, L506.1001, L100.0100, L500.4100 #### [facility] [address] [place], [address] Eosinophils/100 WBC (Bld) 3.4 % Normal 0-5 [facility] Comment on above: Performed By: #### L 500.4050, L506.1001, L100.0100, L500.4100 #### [facility] [address] [place], [address] Erythrocyte distribution width (RBC) [Ratio] 15.3 % High 11.6-14.6 [facility] Comment on above: Performed By: #### L 500.4050, L506.1001, L100.0100, L500.4100 #### [facility] [address] [place], [address] Hematocrit (Bld) [Volume fraction] 43.3 % Normal 40-54 [facility] Comment on above: Performed By: #### L 500.4050, L506.1001, L100.0100, L500.4100 #### [facility] [address] [place], [address] Hemoglobin (Bld) [Mass/Vol] 14.4 g/dL Normal 13.0-16.5 [facility] Comment on above: Performed By: #### L 500.4050, L506.1001, L100.0100, L500.4100 #### [facility] [address] [place], [address] IG% 0.400 Normal 0.0-0.9 [facility] Comment on above: Result Comment: IG% - Immature Granulocytes (promyelocytes, myelocytes and metamyelocytes) > 1% indicates that a LEFT SHIFT is Present. Performed By: #### L 500.4050, L506.1001, L100.0100, L500.4100 #### [facility] [address] [place], [address] Lymphocytes/100 WBC (Bld) 33.4 % Normal 19-41 [facility] Comment on above: Performed By: #### L 500.4050, L506.1001, L100.0100, L500.4100 #### [facility] [address] [place], [address] MCH (RBC) [Entitic mass] 29.6 pg Normal 27.0-32.0 [facility] Comment on above: Performed By: #### L 500.4050, L506.1001, L100.0100, L500.4100 #### [facility] [address] [place], [address] MCHC (RBC) [Mass/Vol] 33.3 g/dL Normal 32-36 [facility] Comment on above: Performed By: #### L 500.4050, L506.1001, L100.0100, L500.4100 #### [facility] [address] [place], [address] MCV (RBC) [Entitic vol] 88.9 fL Normal 80-94 [facility] Comment on above: Performed By: #### L 500.4050, L506.1001, L100.0100, L500.4100 #### [facility] [address] [place], [address] Monocytes/100 WBC (Bld) 10.7 % High 0-10 [facility] Comment on above: Performed By: #### L 500.4050, L506.1001, L100.0100, L500.4100 #### [facility] [address] [place], [address] Neutrophils/100 WBC (Bld) 50.8 % Normal 47-70 [facility] Comment on above: Performed By: #### L 500.4050, L506.1001, L100.0100, L500.4100 #### [facility] [address] [place], [address] Nucleated RBC (Bld) [#/Vol] 0 10*3/uL Normal 0-5 [facility] Comment on above: Performed By: #### L 500.4050, L506.1001, L100.0100, L500.4100 #### [facility] [address] [place], [address] Platelet mean volume (Bld) [Entitic vol] 10.0 fL Normal 6.2-12.0 [facility] Comment on above: Performed By: #### L 500.4050, L506.1001, L100.0100, L500.4100 #### [facility] [address] [place], [address] Platelets (Bld) [#/Vol] 268 10*3/uL Normal 150-450 [facility] Comment on above: Performed By: #### L 500.4050, L506.1001, L100.0100, L500.4100 #### [facility] [address] [place], [address] RBC (Bld) [#/Vol] 4.87 10*6/uL Normal 4.6-6.2 [facility] Comment on above: Performed By: #### L 500.4050, L506.1001, L100.0100, L500.4100 #### [facility] [address] [place], [address] RDW SD 50.4 fl High 35.1-43.9 [facility] Comment on above: Performed By: #### L 500.4050, L506.1001, L100.0100, L500.4100 #### [facility] [address] [place], [address] WBC (Bld) [#/Vol] 8.5 10*3/uL Normal 4.4-11.0 [facility] Comment on above: Performed By: #### L 500.4050, L506.1001, L100.0100, L500.4100 #### [facility] [address] [place], [address] Calculated very low density lipoprotein (VLDL) cholesterol measurementOrdered By: Pamela Hernandez on 12-02-2024 Calculated very low density lipoprotein (VLDL) cholesterol measurement 21 mg/dL 5-40 [facility] Carbon dioxide, total [Moles /volume] in Central venous bloodOrdered By: Pamela Hernandez on 12-02-2024 CO2 [Moles/Vol] 25.3 mmol/L 21.0-32.0 [facility] Chloride assayOrdered By: Hitesh Hernandez on 12-02-2024 Chloride [Moles/Vol] 105 mmol/L 98-108 [facility] Comprehensive Metabolic Prof ilon 12-02-2024 Albumin [Mass/Vol] 4.1 g/dL Normal 3.4-4.8 [facility] Comment on above: Performed By: #### L 500.4050, L506.1001, L100.0100, L500.4100 #### [facility] [address] [place], [address] Albumin/Globulin [Mass ratio] 1.3 {ratio} Normal 0.9-2.4 [facility] Comment on above: Performed By: #### L 500.4050, L506.1001, L100.0100, L500.4100 #### [facility] [address] [place], [address] ALK PHOS 61 U/L Normal 40-129 [facility] Comment on above: Performed By: #### L 500.4050, L506.1001, L100.0100, L500.4100 #### [facility] [address] [place], [address] ALT [Catalytic activity/Vol] 21 U/L Normal <=46 [facility] Comment on above: Performed By: #### L 500.4050, L506.1001, L100.0100, L500.4100 #### [facility] [address] [place], [address] AST [Catalytic activity/Vol] 20 U/L Normal <=37 [facility] Comment on above: Performed By: #### L 500.4050, L506.1001, L100.0100, L500.4100 #### [facility] [address] [place], [address] Bilirubin [Mass/Vol] 0.40 mg/dL Normal 0.00-1.30 [facility] Comment on above: Performed By: #### L 500.4050, L506.1001, L100.0100, L500.4100 #### [facility] [address] [place], [address] BUN/CRE 14.1 RATIO Normal 10-20 [facility] Comment on above: Performed By: #### L 500.4050, L506.1001, L100.0100, L500.4100 #### [facility] [address] [place], [address] Calcium [Mass/Vol] 9.9 mg/dL Normal 7.6-11.0 [facility] Comment on above: Performed By: #### L 500.4050, L506.1001, L100.0100, L500.4100 #### [facility] [address] [place], [address] Chloride [Moles/Vol] 105 mmol/L Normal 98-108 [facility] Comment on above: Performed By: #### L 500.4050, L506.1001, L100.0100, L500.4100 #### [facility] [address] [place], [address] CO2 [Moles/Vol] 25.3 mmol/L Normal 21.0-32.0 [facility] Comment on above: Performed By: #### L 500.4050, L506.1001, L100.0100, L500.4100 #### [facility] [address] [place], [address] Creatinine [Mass/Vol] 0.86 mg/dL Normal 0.70-1.20 [facility] Comment on above: Performed By: #### L 500.4050, L506.1001, L100.0100, L500.4100 #### [facility] [address] [place], [address] GAP 10 Normal 5-15 [facility] Comment on above: Performed By: #### L 500.4050, L506.1001, L100.0100, L500.4100 #### [facility] [address] [place], [address] GFR/1.73 sq M.predicted among non-blacks MDRD (S/P/Bld) [Vol rate/Area] 98 mL/min/{1.73_m2} Normal >60 [facility] Comment on above: Result Comment: mL/m in/1.73m2 CKD-EPI Creatinine Equation (2020) Performed By: #### L 500.4050, L506.1001, L100.0100, L500.4100 #### [facility] [address] [place], [address] Globulin (S) [Mass/Vol] 3.2 g/dL Normal 2.2-4.2 [facility] Comment on above: Performed By: #### L 500.4050, L506.1001, L100.0100, L500.4100 #### [facility] [address] [place], [address] Glucose [Mass/Vol] 104 mg/dL High 70-99 [facility] Comment on above: Performed By: #### L 500.4050, L506.1001, L100.0100, L500.4100 #### [facility] [address] [place], [address] Potassium [Moles/Vol] 4.8 mmol/L Normal 3.3-5.1 [facility] Comment on above: Performed By: #### L 500.4050, L506.1001, L100.0100, L500.4100 #### [facility] [address] [place], [address] Sodium [Moles/Vol] 141 mmol/L Normal 133-145 [facility] Comment on above: Performed By: #### L 500.4050, L506.1001, L100.0100, L500.4100 #### [facility] [address] [place], [address] T PROT 7.3 g/dL Normal 5.9-8.4 [facility] Comment on above: Performed By: #### L 500.4050, L506.1001, L100.0100, L500.4100 #### [facility] [address] [place], [address] Urea nitrogen [Mass/Vol] 12 mg/dL Normal 4-19 [facility] Comment on above: Performed By: #### L 500.4050, L506.1001, L100.0100, L500.4100 #### [facility] [address] [place], [address] Eosinophil percentageOrdered By: Pamela Hernandez on 12-02-2024 Eosinophils/100 WBC (Bld) 3.4 % 0-5 [facility] Erythrocyte distribution wid th ratioOrdered By: Pamela Hernandez on 12-02-2024 Erythrocyte distribution width (RBC) [Ratio] 15.3 % High 11.6-14.6 [facility] Erythrocyte distribution wid th standard deviationOrdered By: Pamela Hernandez on 12-02-2024 Erythrocyte distribution width (RBC) [Ratio] 50.4 fl High 35.1-43.9 [facility] Glomerular filtration rate ( GFR) estimation/1.73 sq m using serum, plasma, or whole bOrdered By: Pamela Hernandez on 12-02-2024 GFR/1.73 sq M.predicted among non-blacks MDRD (S/P/Bld) [Vol rate/Area] 98 mL/min/{1.73_m2} >60 [facility] Comment on above: mL/min/1.73m2 CKD-EP I Creatinine Equation (2020) Hematocrit Auto (Bld) [Volum e fraction]Ordered By: Pamela Hernandez on 12-02-2024 Hematocrit (Bld) [Volume fraction] 43.3 % 40-54 [facility] Hemoglobin measurementOrdere d By: Pamela Hernandez on 12-02-2024 Hemoglobin (Bld) [Mass/Vol] 14.4 g/dL 13.0-16.5 [facility] Immature granulocytes/100 WB C Auto (Bld)Ordered By: Pamela Hernandez on 12-02-2024 Immature granulocytes/100 WBC (Bld) 0.400 % 0.0-0.9 [facility] Comment on above: IG% - Immature Granu locytes (promyelocytes, myelocytes and metamyelocytes) > 1% indicates that a LEFT SHIFT is Present. LDL calc ser/plasOrdered By: Pamela Hernandez on 12-02-2024 Cholesterol in LDL [Mass/Vol] 71 mg/dL [facility] Comment on above: Ptibnrlxkq=210-265 m g/dL & Higher Fomb=211 mg/dL or greater Laboratory - Chemistry and C hemistry - challengeOrdered By: Pamela Hernandez on 12-02-2024 AST [Catalytic activity/Vol] 20 U/L <38 [facility] Lipid Profileon 12-02-2024 CHOL:HDL 2.92 Normal [facility] Comment on above: Performed By: #### L 500.4050, L506.1001, L100.0100, L500.4100 #### [facility] [address] [place], [place], [address] Cholesterol [Mass/Vol] 140 mg/dL Normal <=200 [facility] Comment on above: Result Comment: Chol esterol level, Desirable <200 mg/dL Borderline high cholesterol 200-239 mg/dL High cholesterol >=240 mg/dL Recommendations of the NCEP Adult Treatment Panel for the following risk-cutoff thresholds for the [place] population. Performed By: #### L 500.4050, L506.1001, L100.0100, L500.4100 #### [facility] [address] [place], [place], [address] Cholesterol in HDL [Mass/Vol] 48 mg/dL Normal [facility] Comment on above: Result Comment: Jenn onal Cholesterol Education Program (NCEP) guidelines: <40 mg/dL: Low HDL-cholesterol (major risk factor for CHD) >= 60 mg/dL: High HDL-cholesterol (negative risk factor for CHD) HDL-cholesterol is affected by a number of factors, e.g. smoking, exercise, hormones, sex and age. Performed By: #### L 500.4050, L506.1001, L100.0100, L500.4100 #### [facility] [address] [place], [address] Cholesterol in LDL [Mass/Vol] 71 mg/dL Normal [facility] Comment on above: Result Comment: Bord cdaspq=668-782 mg/dL Higher Pzpu=938 mg/dL or greater Performed By: #### L 500.4050, L506.1001, L100.0100, L500.4100 #### [facility] [address] [place], [address] Cholesterol in VLDL [Mass/Vol] 21 mg/dL Normal 5-40 [facility] Comment on above: Performed By: #### L 500.4050, L506.1001, L100.0100, L500.4100 #### [facility] [address] [place], [address] Triglyceride [Mass/Vol] 107 mg/dL Normal [facility] Comment on above: Result Comment: The drugs N-Acetylcysteine and Metamizole may falsely depress this assay. Normal range: <150 mg/dL Borderline High: 150-199 mg/dL High: 200-499 mg/dL Very High: >500 mg/dL Performed By: #### L 500.4050, L506.1001, L100.0100, L500.4100 #### [facility] [address] [place], [address] MCV (mean corpuscular volume ) determinationOrdered By: Pamela Hernandez on 12-02-2024 MCV (RBC) [Entitic vol] 88.9 fL 80-94 [facility] Mean corpuscular hemoglobin (MCH) determinationOrdered By: Pamela Hernandez on 12-02-2024 MCH (RBC) [Entitic mass] 29.6 pg 27.0-32.0 [facility] Mean corpuscular hemoglobin concentration (MCHC) determinationOrdered By: Pamela Hernandez on 12-02-2024 MCHC (RBC) [Mass/Vol] 33.3 g/dL 32-36 [facility] Mean platelet volume determi nationOrdered By: Pamela Hernandez on 12-02-2024 Platelet mean volume (Bld) [Entitic vol] 10.0 fL 6.2-12.0 [facility] Monocyte percentageOrdered B y: Pamela Hernandez on 12-02-2024 Monocytes/100 WBC (Bld) 10.7 % High 0-10 [facility] Neutrophil percentageOrdered By: Pamela Hernandez on 12-02-2024 Neutrophils/100 WBC (Bld) 50.8 % 47-70 [facility] Nucleated red blood cell per centageOrdered By: Pamela Hernandez on 12-02-2024 Nucleated RBC/100 WBC (Bld) [Ratio] 0 % 0-5 [facility] Platelet countOrdered By: Hitesh Hernandez on 12-02-2024 Platelets (Bld) [#/Vol] 268 10*3/uL 150-450 [facility] Potassium measurement (mass/ volume)Ordered By: Pamela Hernandez on 12-02-2024 Potassium (Unsp spec) [Mass/Vol] 4.8 mmol/L 3.3-5.1 [facility] RBC Auto (Bld) [#/Vol]Ordere d By: Pamela Hernandez on 12-02-2024 RBC (Bld) [#/Vol] 4.87 10*6/uL 4.6-6.2 [facility] Screening total cholesterol/ high density lipoprotein (HDL) cholesterol ratioOrdered By: Pamela Hernandez on 12-02-2024 Cholesterol.total/Chol esterol in HDL [Mass ratio] 2.92 {ratio} [facility] Serum creatinine measurement (mass/volume)Ordered By: Pamela Hernandez on 12-02-2024 Creatinine [Mass/Vol] 0.86 mg/dL 0.70-1.20 [facility] Serum globulin measurementOr dered By: Pamela Hernandez on 12-02-2024 Globulin (S) [Mass/Vol] 3.2 g/dL 2.2-4.2 [facility] Serum glucose measurement (m ass/volume)Ordered By: Pamela Hernandez on 12-02-2024 Glucose [Mass/Vol] 104 mg/dL High 70-99 [facility] Serum or plasma alanine ayala otransferase (ALT) measurementOrdered By: Pamela Hernandez on 12-02-2024 ALT [Catalytic activity/Vol] 21 U/L <47 [facility] Serum or plasma albumin jessica urement (mass/volume)Ordered By: Pamela Hernandez on 12-02-2024 Albumin [Mass/Vol] 4.1 g/dL 3.4-4.8 [facility] Serum or plasma albumin/glob ulin mass ratioOrdered By: Pamela Hernandez on 12-02-2024 Albumin/Globulin [Mass ratio] 1.3 {ratio} 0.9-2.4 [facility] Serum or plasma alkaline jasmina sphatase measurementOrdered By: Pamela Hernandez on 12-02-2024 ALP [Catalytic activity/Vol] 61 U/L 40-129 [facility] Serum or plasma calcium jessica urement (mass/volume)Ordered By: Pamela Hernandez on 12-02-2024 Calcium [Mass/Vol] 9.9 mg/dL 7.6-11.0 [facility] Serum or plasma cholesterol in HDL measurement (mass/volume)Ordered By: Pamela Hernandez on 12-02-2024 Cholesterol in HDL [Mass/Vol] 48 mg/dL >40 [facility] Comment on above: National Cholesterol Education Program (NCEP) guidelines:<40 mg/dL: Low HDL-cholesterol (major risk factor for CHD)>= 60 mg/dL: High HDL-cholesterol (negative risk factor for CHD)HDL-cholesterol is affected by a number of factors, e.g. smoking, exercise, hormones, sex and age. Serum or plasma cholesterol measurement (mass/volume)Ordered By: Pamela Hernandez on 12-02-2024 Cholesterol [Mass/Vol] 140 mg/dL <201 [facility] Comment on above: Cholesterol level, D esirable <200 mg/dLBorderline high cholesterol 200-239 mg/dLHigh cholesterol >=240 mg/dLRecommendations of the NCEP Adult Treatment Panel for the following risk-cutoff thresholds for the [place] population. Serum or plasma urea nitroge n measurement (mass/volume)Ordered By: Pamela Hernandez on 12-02-2024 Urea nitrogen [Mass/Vol] 12 mg/dL 4-19 [facility] Sodium levelOrdered By: Awilda Hernandez on 12-02-2024 Sodium [Moles/Vol] 141 mmol/L 133-145 [facility] Total proteinOrdered By: Lencho Hernandez on 12-02-2024 Protein [Mass/Vol] 7.3 g/dL 5.9-8.4 [facility] Triglycerides measurementOrd ered By: Pamela Hernandez on 12-02-2024 Triglyceride [Mass/Vol] 107 mg/dL <199 [facility] Comment on above: The drugs N-Acetylcy steine and Metamizole may falsely depress this assay. Normal range: <150 mg/dLBorderline High: 150-199 mg/dLHigh: 200-499 mg/dLVery High: >500 mg/dL Vitamin D,25 Hydroxyon 12-02 Vitamin D 25-OH 30.5 ng/mL Normal 30-100 [facility] Comment on above: Result Comment: Leatha min D Status Deficiency: <20 ng/mL (50nmol/L) Insufficiency: 20-30 ng/mL (50-75 nmol/L) Sufficiency: 30-100 ng/mL (75-250 nmol/L) Toxicity: >100 ng/mL (>250 nmol/L) Performed By: #### L 500.4050, L506.1001, L100.0100, L500.4100 #### [facility] [address] [place], [address] White blood cell (WBC) count Ordered By: Pamela Hernandez on 12-02-2024 WBC (Bld) [#/Vol] 8.5 10*3/uL 4.4-11.0 [facility] Internal Medicine Office Vis iton 11-26-2024 Internal Medicine Office Visit [facility] [address] [place] [address] OFFICE VISIT Date of Service: 11/30/24 MR#: [id number] Acct: [id number] Name: ILDEFONSO ROCHA Rep #: [id number] : 1960 Provider: Dr. 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 VIRAL-7 BMS VIRAL-7 Feeling nervous, anxious, or [...] might happ (more content not included)... Normal [facility] Hepatic function 2000 panelo n 10-29-2023 Albumin BCP dye [Mass/Vol] 4.4 g/dL Normal 3.4-5.0 [facility] Comment on above: Performed By: #### T HYDS #### CE Ascencio (23520) [facility] ([facility]) [address] [place] [address] ALP [Catalytic activity/Vol] 59 U/L Normal 33-136 [facility] Comment on above: Performed By: #### T HYDS #### CE Ascencio (97252) [facility] ([facility]) [address] [place] [address]107 ALT With P-5'-P [Catalytic activity/Vol] 21 U/L Normal 10-52 [facility] Comment on above: Result Comment: Perla ents treated with Sulfasalazine may generate falsely decreased results for ALT. Performed By: #### T HYDS #### CE Ascencio (94050) [facility] ([facility]) [address] [place] [address] AST With P-5'-P [Catalytic activity/Vol] 15 U/L Normal 9-39 [facility] Comment on above: Performed By: #### T HYDS #### CE Ascencio (83445) [facility] ([facility]) [address] [place] [address] Bilirubin [Mass/Vol] 0.5 mg/dL Normal 0.0-1.2 [facility] Comment on above: Performed By: #### T HYDS #### CE SHRESTHAMOMADELEINE L (89610) [facility] ([facility]) [address] [place] [address] Bilirubin.direct [Mass/Vol] 0.1 mg/dL Normal 0.0-0.3 [facility] Comment on above: Performed By: #### T HYDS #### CE Ascencio (94948) [facility] ([facility]) [address] [place] [address] Protein [Mass/Vol] 7.3 g/dL Normal 6.4-8.2 [facility] Comment on above: Performed By: #### T HYDS #### CE Ascencio (67553) [facility] ([facility]) [address] [place] [address] Lipid 1996 panelon 4 Cholesterol [Mass/Vol] 157 mg/dL Normal 0-199 [facility] Comment on above: Result Comment: Age Desirable [...] By: #### T HYDS #### CE Ascencio (13348) [facility] ([facility]) [address] [place] [address] Cholesterol in HDL [Mass/Vol] 46.7 mg/dL Normal [facility] Comment on above: Result Comment: Age Very Low Low Normal High 0-19 Y < 35 < 40 40-45 ---- 20-24 Y ---- < 40 >45 ---- >24 Y ---- < 40 40-60 >60 Performed By: #### T HYDS #### CE Ascencio (96580) [facility] ([facility]) [id number] [place] [address] Cholesterol in LDL [Mass/Vol] 84 mg/dL Normal <=99 [facility] Comment on above: Result Comment: Near Borderline AGE Desirable Optimal High High Very High 0-19 Y 0 - 109 --- 110-129 >/= 130 ---- 20-24 Y 0 - 119 --- 120-159 >/= 160 ---- >24 Y 0 - 99 100-129 130-159 160-189 >/=190 Performed By: #### T HYDS #### CE Ascencio (36785) [facility] ([facility]) [address] [place] [address] Cholesterol in VLDL [Mass/Vol] 26 mg/dL Normal 0-40 [facility] Comment on above: Performed By: #### T HYDS #### CE Ascencio (95036) [facility] ([facility]) [address] [place] [address] CHOLESTEROL/HDL RATIO 3.4 Normal [facility] Comment on above: Result Comment: Ref Values Desirable < 3.4 High Risk > 5.0 Performed By: #### T HYDS #### CE Ascencio (16916) [facility] ([facility]) [address] [place] [address] NON HDL CHOLESTEROL 110 mg/dL Normal 0-149 [facility] Comment on above: Result Comment: Age Desirable Borderline High High Very High 0-19 Y 0 - 119 120 - 144 >/= 145 >/= 160 20-24 Y 0 - 149 150 - 189 >/= 190 ---- >24 Y 30 mg/dL above LDL Cholesterol goal Performed By: #### T CIRA #### CE Ascencio (45935) [facility] ([facility]) [address] [place], [place] [address] Triglyceride [Mass/Vol] 130 mg/dL Normal 0-149 [facility] Comment on above: Result Comment: Age Desirable [...] By: #### T CIRA #### CE Ascencio (73887) [facility] ([facility]) [address] [place] [address] [place].doppler Carotid arteries - bilateralon 09-23-[address], [address] [address] and Vascular Lab Report [facility] US CAROTID ARTERY DUPLEX BILATERAL Patient Name: ILDEFONSO Shelton Physician: [id number] Warren Caldwell MD Study Date: 09/23/2023 Ordering Physician: [id number] OPAL MEDINA MRN/PID: [id number] Technologist: Alessia Hart RVT Technologist 2: Date of /Age: 11 1960 / 63 years Gender: M Admission Status: Outpatient Location Performed: [facility] Diagnosis/ICD: Syncope and collapse-R55 Indication: Syncope CPT Codes: 33493 Cerebrovascular Carotid Duplex scan complete CONCLUSIONS: Right [...] cm/s Right Left ICA/CCA Ratio 1.6 0.9 [id number] Warren Caldwell MD Final [facility] Warren Caldwell MD - 09/23/[address], [address], [place] [address] and Vascular Lab Report [facility] US CAROTID ARTERY DUPLEX BILATERAL Patient Name: ILDEFONSO ROCHA Reading Physician: [id number] Caldwell MD Study Date: 09/23/2023 Ordering Physician: [id number] OPAL MEDINA MRN/PID: [id number] Technologist: Alessia Hart RVT Technologist 2: Date of /Age: 11 1960 / 63 years Gender: M Admission Status: Outpatient Location Performed: [facility] Diagnosis/ICD: Syncope and collapse-R55 Indication: Syncope CPT Codes: 07197 Cerebrovascular Carotid Duplex scan complete CONCLUSIONS: Right [...] cm/s Right Left ICA/CCA Ratio 1.6 0.9 [id number] Warren Caldwell MD Final [facility] Work Phone: Radiology Study observation (narrative) [facility] Work Phone: [place].doppler Carotid arteries - bilateralOrdered By: Warren Caldwell on 09-23-2023 [facility] Work Phone: VAS US CAROTID ARTERY DUPLE X BILATERALon 09-23-2023 VASC US CAROTID ARTERY DUPLEX BILATERAL [facility] [address] [facility] [address], [address], [place] [address] and Vascular Lab Report VASC US CAROTID ARTERY DUPLEX BILATERAL Patient Name: WALKERKARAN FATIMANEREIDA Reading Physician: [id number] Caldwell MD Study Date: 09/23/2023 Ordering Physician: [id number] MEDINA MRN/PID: [id number] Technologist: Alessia Hart RVT Technologist 2: Date of /Age: 11 1960 / 63 years Gender: M Admission Status: Outpatient Location Performed: [facility] Diagnosis/ICD: Syncope and collapse-R55 Indication: Syncope CPT Codes: 49160 Cerebrovascular Carotid Duplex scan complete CONCLUSIONS: Right [...] cm/s Right Left ICA/CCA Ratio 1.6 0.9 [id number] Warren Caldwell MD Final [facility] CT HEAD WO IV CONTRASTon CT HEAD WO IV CONTRAST Interpreted By: Anneliese Mckeon, STUDY: CT HEAD WO IV CONTRAST; 09/04/2023 11:15 am INDICATION: Signs/Symptoms:headache and sycope. COMPARISON: None. ACCESSION NUMBER(S): [id number] ORDERING CLINICIAN: OPAL MEDINA TECHNIQUE: Noncontrast axial [...] Anneliese Garza 09/04/2023 11:25 AM Dictation workstation: [id number] [facility] CT Head WO contraston 2023 1. [...] Anneliese Garza 09/04/2023 11:25 AM Dictation workstation: [id number] MMODAL Interpreted By: Anneliese Barrera, STUDY: CT HEAD WO IV CONTRAST; 09/04/2023 11:15 am INDICATION: Signs/Symptoms:headache and sycope. COMPARISON: None. ACCESSION NUMBER(S): [id number] ORDERING CLINICIAN: OPAL MEDINA TECHNIQUE: Noncontrast axial [...] nasopharyngeal soft tissues. [facility] Anneliese Garza, - 09/04/2023 Interpreted By: Anneliese Garza, STUDY: CT HEAD WO IV CONTRAST; 09/04/2023 11:15 am INDICATION: Signs/Symptoms:headache and sycope. COMPARISON: None. ACCESSION NUMBER(S): [id number] ORDERING CLINICIAN: OPAL MEDINA TECHNIQUE: Noncontrast axial [...] Anneliese Garza 09/04/2023 11:25 AM Dictation workstation: [id number] [facility] Work Phone: Radiology Study observation (narrative) [facility] Work Phone: CT Head WO contrastOrdered B y: Anneliese Garza on 09-04-2023 [facility] Work Phone: Comprehensive metabolic 2000 panelon 08-26-2023 Albumin BCP dye [Mass/Vol] 4.4 g/dL Normal 3.4-5.0 [facility] Comment on above: Performed By: #### 2 4323-8 #### CE Ascencio (26260) [facility] ([facility]) [address] [place] [address] ALP [Catalytic activity/Vol] 66 U/L Normal 33-136 [facility] Comment on above: Performed By: #### 2 4323-8 #### CE Ascencio (94297) [facility] ([facility]) [address] [place] [address] ALT With P-5'-P [Catalytic activity/Vol] 20 U/L Normal 10-52 [facility] Comment on above: Result Comment: Perla ents treated with Sulfasalazine may generate falsely decreased results for ALT. Performed By: #### 2 4323-8 #### CE Ascencio (01218) [facility] ([facility]) [address] [place] [address] Anion gap [Moles/Vol] 11 mmol/L Normal 10-20 [facility] Comment on above: Performed By: #### 2 4323-8 #### CE Ascencio (38087) [facility] ([facility]) [address] [place] [address] AST With P-5'-P [Catalytic activity/Vol] 14 U/L Normal 9-39 [facility] Comment on above: Performed By: #### 2 4323-8 #### CE Ascencio (81322) [facility] ([facility]) [address] [place] [address] Bilirubin [Mass/Vol] 0.4 mg/dL Normal 0.0-1.2 [facility] Comment on above: Performed By: #### 2 4323-8 #### CE Ascencio (03344) [facility] ([facility]) [address] [place] [address] Calcium [Mass/Vol] 9.7 mg/dL Normal 8.6-10.6 [facility] Comment on above: Performed By: #### 2 4323-8 #### CE Ascencio (19159) [facility] ([facility]) [address] [place] [address] Chloride [Moles/Vol] 102 mmol/L Normal 98-107 [facility] Comment on above: Performed By: #### 2 4323-8 #### CE Ascencio (67370) [facility] ([facility]) [address] [place] [address]63 CO2 [Moles/Vol] 29 mmol/L Normal 21-32 [facility] Comment on above: Performed By: #### 2 4323-8 #### CE Ascencio (79626) [facility] ([facility]) [address] [place] [address] [place] [address] Creatinine [Mass/Vol] 0.87 mg/dL Normal 0.50-1.30 [facility] Comment on above: Performed By: #### 2 4323-8 #### CE Ascencio (07626) [facility] ([facility]) [address] [place] [address] GFR/1.73 sq M.predicted MDRD (S/P/Bld) [Vol rate/Area] mL/min/{1.73_m2} Normal >60 [facility] Comment on above: Result Comment: Calc ulations of estimated GFR are performed using the 2020 CKD-EPI Study Refit equation without the race variable for the IDMS-Traceable creatinine methods. https://jasn.asnjournals.org/content/early//ASN.19501 73241 Performed By: #### 2 4323-8 #### CE Ascencio (70959) [facility] ([facility]) [address] [place] [address] Glucose [Mass/Vol] 90 mg/dL Normal 74-99 [facility] Comment on above: Performed By: #### 2 4323-8 #### CE Ascencio (28480) [facility] ([facility]) [address] [place] [address] Potassium [Moles/Vol] 4.0 mmol/L Normal 3.5-5.3 [facility] Comment on above: Performed By: #### 2 4323-8 #### CE Ascencio (23721) [facility] ([facility]) [address] [place] [address] Protein [Mass/Vol] 7.4 g/dL Normal 6.4-8.2 [facility] Comment on above: Performed By: #### 2 4323-8 #### CE Ascencio (44387) [facility] ([facility]) [address] [place] [address] Sodium [Moles/Vol] 138 mmol/L Normal 136-145 [facility] Comment on above: Performed By: #### 2 4323-8 #### CE OSWALDER L (14062) [facility] ([facility]) [address] [place] [address] Urea nitrogen [Mass/Vol] 18 mg/dL Normal 6-23 [facility] Comment on above: Performed By: #### 2 4323-8 #### CE SCHMOTZER L (66169) [facility] ([facility]) [address] [place] [address] Magnesiumon 08-26-2023 Magnesium [Mass/Vol] 2.06 mg/dL Normal 1.60-2.40 [facility] Comment on above: Performed By: #### 1 9123-9 #### CE OSWALDER L (57648) [facility] ([facility]) [address] [place] [address] TRANSTHORACIC ECHO (TTE) SHRESTHA ITEDon 08-14-2023 TRANSTHORACIC ECHO (TTE) [facility], [address] [place] [address], [address] [address] and TRANSTHORACIC ECHOCARDIOGRAM REPORT Patient Name: ILDEFONSO Shelton Physician: [id number] Savita ROCHA Study Date: 08/14/2023 Ordering Provider: [id number] OPAL MEDINA MRN/PID: [id number] Fellow: Nurse: Ela Hernandez RN Date of /Age: 11 1960 Maintenance Journeyman: Raine Kelly RDCS years Gender: M Additional Staff: Height: 172.72 cm Admit Date: Weight: 127.46 kg Admission Status: Outpatient BSA / BMI: 2.36 m2 / 42.73 kg/m2 Department Location: [facility] Blood Pressure: 125 /85 mmHg Study Type: TRANSTHORACIC ECHO (TTE) LIMITED Diagnosis/ICD: Syncope-R55 Indication: Syncope CPT Code: Echo Limited-28005; Doppler Limited-68525; Color Doppler-45077 Patient History: BMI: Obese >30 Pertinent History: [...] TAPSE: 20.2 mm RV s' 0.14 m/s 62937 Savita Vann MD Electronically signed on 08/14/2023 at 10:31:59 PM Final [facility] Heart TransthoracicOrdere d By: Savita Vann on 08-14-2023 Aortic Valve Area by Continuity of Peak Velocity 3.03 cm2 [facility] Work Phone: [phone] AV pk grad 8.4 mmHg [facility] Work Phone: [phone] AV pk jabari 1.45 m/s [facility] Work Phone: [phone] LV A4C EF 65.7 [facility] Work Phone: [phone] LV Biplane EF 64 % [facility] Work Phone: [phone] LVOT diam 2.10 cm [facility] Work Phone: [phone] MV avg E/e' ratio 4.08 [facility] Work Phone: [phone] RV free wall pk S' 14.00 cm/s [facility] Work Phone: [phone] Tricuspid annular plane systolic excursion 2.0 cm [facility] Work Phone: [phone] [facility] Work Phone: [phone] Heart Transthoracicon [facility], [address] [place] [address], [address] [address] and TRANSTHORACIC ECHOCARDIOGRAM REPORT Patient Name: ILDEFONSO Shelton Physician: [id number] Savita ROCHA Study Date: 08/14/2023 Ordering Provider: [id number] OPAL MEDINA MRN/PID: [id number] Fellow: Nurse: Ela Hernandez RN Date of /Age: 11 1960 Maintenance Journeyman: Rainefrank Kelly RDCS years Gender: M Additional Staff: Height: 172.72 cm Admit Date: Weight: 127.46 kg Admission Status: Outpatient BSA / BMI: 2.36 m2 / 42.73 kg/m2 Department Location: [facility] Blood Pressure: 125 /85 mmHg Study Type: TRANSTHORACIC ECHO (TTE) LIMITED Diagnosis/ICD: Syncope-R55 Indication: Syncope CPT Code: Echo Limited-22982; Doppler Limited-17757; Color Doppler-79215 Patient History: BMI: Obese >30 Pertinent History: [...] TAPSE: 20.2 mm RV s' 0.14 m/s [id number] Savita Vann MD Electronically signed on 08/14/2023 at 10:31:59 PM Final Savita Amanda MD - 08/14/2023 [facility], [address] [place] [address], [address] [address] and TRANSTHORACIC ECHOCARDIOGRAM REPORT Patient Name: ILDEFONSO Shelton Physician: [id number] [facility] Study Date: 08/14/2023 Ordering Provider: [id number] OPAL MEDINA MRN/PID: [id number] Fellow: Nurse: Ela Hernandez RN Date of /Age: 11 1960 Maintenance Journeyman: Raine Kelly RDCS years Gender: M Additional Staff: Height: 172.72 cm Admit Date: Weight: 127.46 kg Admission Status: Outpatient BSA / BMI: 2.36 m2 / 42.73 kg/m2 Department Location: [facility] Blood Pressure: 125 /85 mmHg Study Type: TRANSTHORACIC ECHO (TTE) LIMITED Diagnosis/ICD: Syncope-R55 Indication: Syncope CPT Code: Echo Limited-96116; Doppler Limited-82947; Color Doppler-61051 Patient History: BMI: Obese >30 Pertinent History: [...] TAPSE: 20.2 mm RV s' 0.14 m/s 88840 Savita Vann MD Electronically signed on 08/14/2023 at 10:31:59 PM Final [facility] Work Phone: CBC panel Auto (Bld)on 07-01 Erythrocyte distribution width (RBC) [Ratio] 15.8 % High 11.5-14.5 [facility] Comment on above: Performed By: #### 5 8410-2 #### CE Ascencio (34942) [facility] ([facility]) [address] [place] [address]99 Hematocrit (Bld) [Volume fraction] 45.3 % Normal 41.0-52.0 [facility] Comment on above: Performed By: #### 5 8410-2 #### CE Ascencio (11217) [facility] ([facility]) [address] [place] [address] 90125 Hemoglobin (Bld) [Mass/Vol] 15.2 g/dL Normal 13.5-17.5 [facility] Comment on above: Performed By: #### 5 8410-2 #### CE Ascencio (34313) [facility] ([facility]) [address] [place] [address] 15991 MCH (RBC) [Entitic mass] 29.4 pg Normal 26.0-34.0 [facility] Comment on above: Performed By: #### 5 8410-2 #### CE Ascencio (73302) [facility] ([facility]) [address] [place] [address] 64636 MCHC (RBC) [Mass/Vol] 33.6 g/dL Normal 32.0-36.0 [facility] Comment on above: Performed By: #### 5 8410-2 #### CE Ascencio (89180) [facility] ([facility]) [address] [place] [address] 70709 MCV (RBC) [Entitic vol] 88 fL Normal 80-100 [facility] Comment on above: Performed By: #### 5 8410-2 #### CE Ascencio (77217) [facility] ([facility]) [address] [place] [address] 64782 Nucleated RBC/100 WBC (Bld) [Ratio] 0.0 /100 WBCs Normal 0.0-0.0 [facility] Comment on above: Performed By: #### 5 8410-2 #### CE Ascencio (32109) [facility] ([facility]) [address] [place] [address] 65808 Platelets (Bld) [#/Vol] 302 x10*3/uL Normal 150-450 [facility] Comment on above: Performed By: #### 5 8410-2 #### CE Ascencio (91992) [facility] ([facility]) [address] [place] [address] 68198 RBC (Bld) [#/Vol] 5.17 x10*6/uL Normal 4.50-5.90 [facility] Comment on above: Performed By: #### 5 8410-2 #### CE Ascencio (12757) [facility] ([facility]) [address] [place] [address] 11355 WBC (Bld) [#/Vol] 9.6 x10*3/uL Normal 4.4-11.3 [facility] Comment on above: Performed By: #### 5 8410-2 #### CE Ascencio (67429) [facility] ([facility]) [address] [place] [address] 13248 Calcidiolon 07-01-2023 25-hydroxyvitamin D3 [Mass/Vol] 38 ng/mL Normal 30-100 [facility] Comment on above: Order Comment: Defic iency: < 20 ng/ml Insufficiency: 20-29 ng/ml Sufficiency: 30-100 ng/ml This assay accurately quantifies the sum of Vitamin D3, 25-Hydroxy and Vitamin D2,25-Hydroxy. Performed By: #### 1 989-3 #### CE Ascencio (07719) [facility] ([facility]) [address] [place] [address] 27234 Comprehensive metabolic 2000 panelon 07-01-2023 Albumin BCP dye [Mass/Vol] 4.5 g/dL Normal 3.4-5.0 [facility] Comment on above: Performed By: #### 2 4323-8 #### CE Ascencio (44063) [facility] ([facility]) [address] [place] [address] 33170 ALP [Catalytic activity/Vol] 59 U/L Normal 33-136 [facility] Comment on above: Performed By: #### 2 4323-8 #### CE Ascencio (08961) [facility] ([facility]) [address] [place] [address] 32675 ALT With P-5'-P [Catalytic activity/Vol] 19 U/L Normal 10-52 [facility] Comment on above: Result Comment: Perla ents treated with Sulfasalazine may generate falsely decreased results for ALT. Performed By: #### 2 4323-8 #### CE Ascencio (50698) [facility] ([facility]) [address] [place] [address] Anion gap [Moles/Vol] 15 mmol/L Normal 10-20 [facility] Comment on above: Performed By: #### 2 4323-8 #### CE Ascencio (74531) [facility] ([facility]) [address] [place] [address] AST With P-5'-P [Catalytic activity/Vol] 12 U/L Normal 9-39 [facility] Comment on above: Performed By: #### 2 4323-8 #### CE Ascencio (40522) [facility] ([facility]) [address] [place] [address] 63837 Bilirubin [Mass/Vol] 0.4 mg/dL Normal 0.0-1.2 [facility] Comment on above: Performed By: #### 2 4323-8 #### CE Ascencio (49372) [facility] ([facility]) [address] [place] [address] 41733 Calcium [Mass/Vol] 10.2 mg/dL Normal 8.6-10.6 [facility] Comment on above: Performed By: #### 2 4323-8 #### CE Ascencio (66196) [facility] ([facility]) [address] [place] [address] 89205 Chloride [Moles/Vol] 101 mmol/L Normal 98-107 [facility] Comment on above: Performed By: #### 2 4323-8 #### CE Ascencio (16700) [facility] ([facility]) [address] [place] [address] CO2 [Moles/Vol] 28 mmol/L Normal 21-32 [facility] Comment on above: Performed By: #### 2 4323-8 #### CE Ascencio (60532) [facility] ([facility]) [address] [place] [address] Creatinine [Mass/Vol] 0.78 mg/dL Normal 0.50-1.30 [facility] Comment on above: Performed By: #### 2 4323-8 #### CE Ascencio (62140) [facility] ([facility]) [address] [place] [address]7539 GFR/1.73 sq M.predicted MDRD (S/P/Bld) [Vol rate/Area] mL/min/{1.73_m2} Normal >60 [facility] Comment on above: Result Comment: Calc ulations of estimated GFR are performed using the 2020 CKD-EPI Study Refit equation without the race variable for the IDMS-Traceable creatinine methods. https://jasn.asnjournals.org/content/early//ASN.39657 08417 Performed By: #### 2 4323-8 #### CE Ascencio (80677) [facility] ([facility]) [address] [place] [address] 56735 Glucose [Mass/Vol] 116 mg/dL High 74-99 [facility] Comment on above: Performed By: #### 2 4323-8 #### CE Ascencio (65969) [facility] ([facility]) [address] [place] [address] 78044 Potassium [Moles/Vol] 4.2 mmol/L Normal 3.5-5.3 [facility] Comment on above: Performed By: #### 2 4323-8 #### CE Ascencio (36536) [facility] ([facility]) [address] [place] [address] 23525 Protein [Mass/Vol] 7.4 g/dL Normal 6.4-8.2 [facility] Comment on above: Performed By: #### 2 4323-8 #### CE Ascencio (35276) [facility] ([facility]) [address] [place] [address] 32724 Sodium [Moles/Vol] 140 mmol/L Normal 136-145 [facility] Comment on above: Performed By: #### 2 4323-8 #### CE Ascencio (14521) [facility] ([facility]) [address] [place] [address] Urea nitrogen [Mass/Vol] 15 mg/dL Normal 6-23 [facility] Comment on above: Performed By: #### 2 4323-8 #### CE Ascencio (36235) [facility] ([facility]) [address] [place] [address] 84549 Lipid 1996 panelon 4 Cholesterol [Mass/Vol] 237 mg/dL High 0-199 [facility] Comment on above: Result [...] By: #### 2 4331-1 #### CE Ascencio (08929) [facility] ([facility]) [address] [place] [address] 48796 Cholesterol in HDL [Mass/Vol] 53.5 mg/dL Normal [facility] Comment on above: Result Comment: Age Very Low Low Normal High 0-19 Y < 35 < 40 40-45 ---- 20-24 Y ---- < 40 >45 ---- >24 Y ---- < 40 40-60 >60 Performed By: #### 2 4331-1 #### CE Ascencio (12340) [facility] ([facility]) [address] [place] [address] Cholesterol in LDL [Mass/Vol] 154 mg/dL High <=99 [facility] Comment on above: Result Comment: Near Borderline AGE Desirable Optimal High High Very High 0-19 Y 0 - 109 --- 110-129 >/= 130 ---- 20-24 Y 0 - 119 --- 120-159 >/= 160 ---- >24 Y 0 - 99 100-129 130-159 160-189 >/=190 Performed By: #### 2 4331-1 #### CE Ascencio (85928) [facility] ([facility]) [address] [place] [address] Cholesterol in VLDL [Mass/Vol] 29 mg/dL Normal 0-40 [facility] Comment on above: Performed By: #### 2 4331-1 #### CE Ascencio (53029) [facility] ([facility]) [address] [place] [address] CHOLESTEROL/HDL RATIO 4.4 Normal [facility] Comment on above: Result Comment: Ref Values Desirable < 3.4 High Risk > 5.0 Performed By: #### 2 4331-1 #### CE Ascencio (99763) [facility] ([facility]) [address] [place] [address] NON HDL CHOLESTEROL 184 mg/dL High 0-149 [facility] Comment on above: Result Comment: Age Desirable Borderline High High Very High 0-19 Y 0 - 119 120 - 144 >/= 145 >/= 160 20-24 Y 0 - 149 150 - 189 >/= 190 ---- >24 Y 30 mg/dL above LDL Cholesterol goal Performed By: #### 2 4331-1 #### CE Ascencio (27262) [facility] ([facility]) [address] [place] [address] Triglyceride [Mass/Vol] 147 mg/dL Normal 0-149 [facility] Comment on above: Result Comment: Age Desirable [...] By: #### 2 4331-1 #### CE Ascencio (58406) [facility] ([facility]) [address] [place] [address] TSH WITH REFLEX TO FREE T4 I F ABNORMALon 07-01-2023 TSH Qn 1.00 m[IU]/L Normal 0.44-3.98 [facility] Comment on above: Order Comment: TSH t esting is performed using different testing methodology at [facility] than at other [facility]. Direct result comparisons should only be made within the same method. Performed By: #### T HYDS #### CE Ascencio (84313) [facility] ([facility]) [address] [place] [address] .Auto Diffon 01-16-2023 Basophil, Absolute 0.0 10 3/mcL Normal 0.0-0.2 [facility] ([place]) Comment on above: Performed By: #### A JEWEL, GFR, CBC, ADIFF, BMP #### [address] [address] Basophils/100 WBC (Bld) 0.3 % Normal 0.0-2.5 [facility] ([place]) Comment on above: Performed By: #### A JEWEL, GFR, CBC, ADIFF, BMP #### [address] [address] Eosinophil, Absolute 0.0 10 3/mcL Normal 0.0-0.4 [facility] ([place]) Comment on above: Performed By: #### A JEWEL, GFR, CBC, ADIFF, BMP #### [address] [address] Eosinophils/100 WBC (Bld) 0.2 % Normal 0.0-7.0 [facility] ([place]) Comment on above: Performed By: #### A JEWEL, GFR, CBC, ADIFF, BMP #### [address] [address] Lymphocyte, Absolute 3.0 10 3/mcL Normal 0.8-3.9 [facility] ([place]) Comment on above: Performed By: #### A JEWEL, GFR, CBC, ADIFF, BMP #### [address] [address] Lymphocytes/100 WBC (Bld) 18.9 % Normal 10.0-50.0 [facility] ([place]) Comment on above: Performed By: #### A JEWEL, GFR, CBC, ADIFF, BMP #### [address] [address] Monocyte, Absolute 1.8 10 3/mcL High 0.2-1.0 [facility] ([place]) Comment on above: Performed By: #### A JEWEL, GFR, CBC, ADIFF, BMP #### [address] [address] Monocytes/100 WBC (Bld) 11.4 % Normal 1.7-13.0 [facility] ([place]) Comment on above: Performed By: #### A JEWEL, GFR, CBC, ADIFF, BMP #### [address] [address] Neutrophils/100 WBC (Bld) 69.2 % Normal 37.0-80.0 [facility] ([place]) Comment on above: Performed By: #### A JEWEL, GFR, CBC, ADIFF, BMP #### [address] [address] .GFRon 01-16-2023 GFR 110 ml/min/1.73sqm Normal [facility] ([place]) Comment on above: Result Comment: GFR Population [...] A JEWEL, GFR, CBC, ADIFF, BMP #### [address] [address] GFR Non- 91 ml/min/1.73sqm Normal [facility] ([place]) Comment on above: Result Comment: GFR Population [...] A JEWEL, GFR, CBC, ADIFF, BMP #### [address] [address] .NEUABSon 01-16-2023 Neutrophil, Absolute 11.0 10 3/mcL High 2.9-6.2 [facility] ([place]) Comment on above: Performed By: #### A JEWEL, GFR, CBC, ADIFF, BMP #### [address] [address] BMPon 01-16-2023 BUN/Creatinine Ratio 23 ratio Normal 7-27 [facility] ([place]) Comment on above: Performed By: #### A JEWEL, GFR, CBC, ADIFF, BMP #### [address] [address] Calcium [Mass/Vol] 8.9 mg/dL Normal 8.4-10.2 [facility] ([place]) Comment on above: Performed By: #### A JEWEL, GFR, CBC, ADIFF, BMP #### [address] [address] Chloride [Moles/Vol] 107 mmol/L Normal 98-107 [facility] ([place]) Comment on above: Performed By: #### A JEWEL, GFR, CBC, ADIFF, BMP #### [address] [address] CO2 [Moles/Vol] 27 mmol/L Normal 23-31 [facility] ([place]) Comment on above: Performed By: #### A JEWEL, GFR, CBC, ADIFF, BMP #### [address] [address] Creatinine [Mass/Vol] 0.86 mg/dL Normal 0.70-1.30 [facility] ([place]) Comment on above: Performed By: #### A JEWEL, GFR, CBC, ADIFF, BMP #### [place] [id number] Electrolyte Balance 9.0 mEq/L Normal 4.0-15.0 [facility] ([place]) Comment on above: Performed By: #### A JEWEL, GFR, CBC, ADIFF, BMP #### [place] [address] Glucose [Mass/Vol] 104 mg/dL Normal 80-115 [facility] ([place]) Comment on above: Performed By: #### A JEWEL, GFR, CBC, ADIFF, BMP #### [address] [address] Potassium [Moles/Vol] 4.5 mmol/L Normal 3.5-5.1 [facility] ([place]) Comment on above: Performed By: #### A JEWEL, GFR, CBC, ADIFF, BMP #### [place] [address] Sodium [Moles/Vol] 143 mmol/L Normal 136-145 [facility] ([place]) Comment on above: Performed By: #### A JEWEL, GFR, CBC, ADIFF, BMP #### [place] [id number] Urea nitrogen [Mass/Vol] 20 mg/dL High 7-18 [facility] ([place]) Comment on above: Performed By: #### A JEWEL, GFR, CBC, ADIFF, BMP #### [address] [address] CBCon 01-16-2023 Erythrocyte distribution width (RBC) [Ratio] 15.0 % High 11.5-14.5 [facility] ([place]) Comment on above: Performed By: #### A JEWEL, GFR, CBC, ADIFF, BMP #### [address] [address] Hematocrit (Bld) [Volume fraction] 34.9 % Low 42.0-52.0 [facility] ([place]) Comment on above: Performed By: #### A JEWEL, GFR, CBC, ADIFF, BMP #### [place] [id number] Hgb 11.9 G/dL Low 14.0-18.0 [facility] ([place]) Comment on above: Performed By: #### A JEWEL, GFR, CBC, ADIFF, BMP #### [address] [address] MCH (RBC) [Entitic mass] 30.0 pg Normal 27.0-31.2 [facility] ([place]) Comment on above: Performed By: #### A JEWEL, GFR, CBC, ADIFF, BMP #### [place] [id number] MCHC 34.1 G/dL Normal 31.8-35.4 [facility] ([place]) Comment on above: Performed By: #### A JEWEL, GFR, CBC, ADIFF, BMP #### [address] [address] MCV (RBC) [Entitic vol] 88.0 fL Normal 80.0-94.0 [facility] ([place]) Comment on above: Performed By: #### A JEWEL, GFR, CBC, ADIFF, BMP #### [place] [id number] Platelet 264 10 3/mcL Normal 130-400 [facility] ([place]) Comment on above: Performed By: #### A JEWEL, GFR, CBC, ADIFF, BMP #### Suzy [address] [address] Platelet mean volume (Bld) [Entitic vol] 7.7 fL Normal 7.4-10.4 [facility] ([place]) Comment on above: Performed By: #### A JEWEL, GFR, CBC, ADIFF, BMP #### Suzy [address] [address] RBC 3.96 10 6/mcL Low 4.04-6.13 [facility] ([place]) Comment on above: Performed By: #### A JEWEL, GFR, CBC, ADIFF, BMP #### Suzy [place] [address] [place], [place] [address] WBC 15.9 10 3/mcL High 4.6-10.8 [facility] ([place]) Comment on above: Performed By: #### A JEWEL, GFR, CBC, ADIFF, BMP #### [address] [address] LABORATORYOrdered By: SYSTEM SYSTEM on 01-16-2023 Basophil, [...] SS .GFRon 01-15-2023 GFR 93 ml/min/1.73sqm Normal [facility] ([place]) Comment on above: Result Comment: GFR Population [...] mL/min/1.73 square meters Performed By: #### A AFTABG, ABOG #### Su[address] [place], [place] [address] #### BMP, GFR #### [address] [address] GFR Non- 77 ml/min/1.73sqm Normal [facility] ([place]) Comment on above: Result Comment: GFR Population [...] By: #### A NSG, ABOG #### Suzy [address] [place], [place] [address] #### BMP, GFR #### [address] [address] BMPon 01-15-2023 BUN/Creatinine Ratio 19 ratio Normal 12-06 [facility] ([place]) Comment on above: Performed By: #### A NSG, ABOG #### Su[address] [place], [place] [address] #### BMP, GFR #### [address] [address] Calcium [Mass/Vol] 9.0 mg/dL Normal 8.4-10.2 [facility] ([place]) Comment on above: Performed By: #### A NSG, ABOG #### Su[address] [place], [place] [address] #### BMP, GFR #### [address] [address] Chloride [Moles/Vol] 106 mmol/L Normal 98-107 [facility] ([place]) Comment on above: Performed By: #### A NSG, ABOG #### [place] [address] [place], [place] [address] #### BMP, GFR #### [address] [address] CO2 [Moles/Vol] 25 mmol/L Normal 23-31 [facility] ([place]) Comment on above: Performed By: #### A NSG, ABOG #### Su[address] [place], [place] [address] #### BMP, GFR #### [address] [address] Creatinine [Mass/Vol] 0.99 mg/dL Normal 0.70-1.30 [facility] ([place]) Comment on above: Performed By: #### A NSG, ABOG #### Su[address] [place], [place] [address] #### BMP, GFR #### [address] [address] Electrolyte Balance 12.0 mEq/L Normal 4.0-15.0 [facility] ([place]) Comment on above: Performed By: #### A NSG, ABOG #### Su[address] [place], [place] [address] #### BMP, GFR #### [address] [address] Glucose [Mass/Vol] 102 mg/dL Normal 80-115 [facility] ([place]) Comment on above: Performed By: #### A NSG, ABOG #### [facility] [address] [place], [place] [address] #### BMP, GFR #### [address] [address] Potassium [Moles/Vol] 4.1 mmol/L Normal 3.5-5.1 [facility] ([place]) Comment on above: Performed By: #### A NSG, ABOG #### [facility] [address] [place], [place] [address] #### BMP, GFR #### [address] [address] Sodium [Moles/Vol] 143 mmol/L Normal 136-145 [facility] ([place]) Comment on above: Performed By: #### A NSG, ABOG #### [facility] [address] [place], [place] [address] #### BMP, GFR #### [address] [address] Urea nitrogen [Mass/Vol] 19 mg/dL High 7-18 [facility] ([place]) Comment on above: Performed By: #### A NSG, ABOG #### [facility] [address] [place], [place] [address] #### BMP, GFR #### [address] [address] Gel ABOon 01-15-2023 ABO/Rh Interp Positive Invalid Interpretation Code [facility] ([place]) Comment on above: Performed By: #### A NSG, ABOG #### [facility] [address] [place], [place] [address] #### BMP, GFR #### [address] [address] Gel ABSon 01-15-2023 Antibody Screen Gel Negative Normal [facility] ([place]) Comment on above: Performed By: #### A NSG, ABOG #### Su[address] [place], [place] [address] #### BMP, GFR #### [place] [address] [place] [address] LABORATORYOrdered By: Dinora Reed on 01-15-2023 ABO/Rh [...] 01/15/2023 9:33:34 AM Ordering Provider: GRICELDA OLIVER [facility] ([place]) CT KNEE W/O CONTRAST RIGHTon 01-07-2023 CT [...] 01/07/2023 3:41:18 PM Ordering Provider: GRICELDA Yepez [facility] ([place]) .Auto Diffon 12-17-2022 Basophil, Absolute 0.1 10 3/mcL Normal 0.0-0.2 [facility] ([place]) Comment on above: Performed By: #### A JEWEL, GFR, CBC, ADIFF, BMP #### Suzy [address] [place], [place] [address] Basophils/100 WBC (Bld) 1.4 % Normal 0.0-2.5 [facility] ([place]) Comment on above: Performed By: #### A JEWEL, GFR, CBC, ADIFF, BMP #### [address] [address] Eosinophil, Absolute 0.3 10 3/mcL Normal 0.0-0.4 [facility] ([place]) Comment on above: Performed By: #### A JEWEL, GFR, CBC, ADIFF, BMP #### [address] [address] Eosinophils/100 WBC (Bld) 2.7 % Normal 0.0-7.0 [facility] ([place]) Comment on above: Performed By: #### A JEWEL, GFR, CBC, ADIFF, BMP #### [address] [address] Lymphocyte, Absolute 3.2 10 3/mcL Normal 0.8-3.9 [facility] ([place]) Comment on above: Performed By: #### A JEWEL, GFR, CBC, ADIFF, BMP #### [address] [address] Lymphocytes/100 WBC (Bld) 32.9 % Normal 10.0-50.0 [facility] ([place]) Comment on above: Performed By: #### A JEWEL, GFR, CBC, ADIFF, BMP #### [address] [address] Monocyte, Absolute 1.1 10 3/mcL High 0.2-1.0 [facility] ([place]) Comment on above: Performed By: #### A JEWEL, GFR, CBC, ADIFF, BMP #### [address] [address] Monocytes/100 WBC (Bld) 11.3 % Normal 1.7-13.0 [facility] ([place]) Comment on above: Performed By: #### A JEWEL, GFR, CBC, ADIFF, BMP #### [address] [address] Neutrophils/100 WBC (Bld) 51.7 % Normal 37.0-80.0 [facility] ([place]) Comment on above: Performed By: #### A JEWEL, GFR, CBC, ADIFF, BMP #### [address] [address] .GFRon 12-17-2022 GFR Non- 77 ml/min/1.73sqm Normal [facility] ([place]) Comment on above: Result Comment: GFR Population [...] A JEWEL, GFR, CBC, ADIFF, BMP #### [address] [address] GFR 93 ml/min/1.73sqm Normal [facility] ([place]) Comment on above: Result Comment: GFR Population [...] A JEWEL, GFR, CBC, ADIFF, BMP #### [address] [address] .NEUABSon 12-17-2022 Neutrophil, Absolute 5.1 10 3/mcL Normal 2.9-6.2 [facility] ([place]) Comment on above: Performed By: #### A JEWEL, GFR, CBC, ADIFF, BMP #### [address] [address] ALBon 12-17-2022 Albumin Level 4.0 G/dL Normal 3.4-4.8 [facility] ([place]) Comment on above: Performed By: #### A JEWEL, GFR, CBC, ADIFF, BMP #### [address] [address] BMPon 12-17-2022 BUN/Creatinine Ratio 17 ratio Normal 7-27 [facility] ([place]) Comment on above: Performed By: #### A JEWEL, GFR, CBC, ADIFF, BMP #### [address] [address] Calcium [Mass/Vol] 9.3 mg/dL Normal 8.4-10.2 [facility] ([place]) Comment on above: Performed By: #### A JEWEL, GFR, CBC, ADIFF, BMP #### [address] [address] Chloride [Moles/Vol] 103 mmol/L Normal 98-107 [facility] ([place]) Comment on above: Performed By: #### A JEWEL, GFR, CBC, ADIFF, BMP #### [address] [address] CO2 [Moles/Vol] 29 mmol/L Normal 23-31 [facility] ([place]) Comment on above: Performed By: #### A JEWEL, GFR, CBC, ADIFF, BMP #### [address] [address] Creatinine [Mass/Vol] 0.99 mg/dL Normal 0.70-1.30 [facility] ([place]) Comment on above: Performed By: #### A JEWEL, GFR, CBC, ADIFF, BMP #### [address] [address] Electrolyte Balance 11.0 mEq/L Normal 4.0-15.0 [facility] ([place]) Comment on above: Performed By: #### A JEWEL, GFR, CBC, ADIFF, BMP #### [address] [address] Glucose [Mass/Vol] 106 mg/dL Normal 80-115 [facility] ([place]) Comment on above: Performed By: #### A JEWEL, GFR, CBC, ADIFF, BMP #### [address] [address] Potassium [Moles/Vol] 3.2 mmol/L Low 3.5-5.1 [facility] ([place]) Comment on above: Performed By: #### A JEWEL, GFR, CBC, ADIFF, BMP #### [address] [address] Sodium [Moles/Vol] 143 mmol/L Normal 136-145 [facility] ([place]) Comment on above: Performed By: #### A JEWEL, GFR, CBC, ADIFF, BMP #### [address] [address] Urea nitrogen [Mass/Vol] 17 mg/dL Normal 7-18 [facility] ([place]) Comment on above: Performed By: #### A JEWEL, GFR, CBC, ADIFF, BMP #### [address] [address] CBCon 12-17-2022 Erythrocyte distribution width (RBC) [Ratio] 16.0 % High 11.5-14.5 [facility] ([place]) Comment on above: Order Comment: Pre-A dmission Testing Performed By: #### A JEWEL, GFR, CBC, ADIFF, BMP #### [address] [address] Hematocrit (Bld) [Volume fraction] 44.3 % Normal 42.0-52.0 [facility] ([place]) Comment on above: Order Comment: Pre-A dmission Testing Performed By: #### A JEWEL, GFR, CBC, ADIFF, BMP #### [address] [address] Hgb 15.7 G/dL Normal 14.0-18.0 [facility] ([place]) Comment on above: Order Comment: Pre-A dmission Testing Performed By: #### A JEWEL, GFR, CBC, ADIFF, BMP #### [address] [address] MCH (RBC) [Entitic mass] 30.3 pg Normal 27.0-31.2 [facility] ([place]) Comment on above: Order Comment: Pre-A dmission Testing Performed By: #### A JEWEL, GFR, CBC, ADIFF, BMP #### [address] [address] MCHC 35.6 G/dL High 31.8-35.4 [facility] ([place]) Comment on above: Order Comment: Pre-A dmission Testing Performed By: #### A JEWEL, GFR, CBC, ADIFF, BMP #### [address] [address] MCV (RBC) [Entitic vol] 85.3 fL Normal 80.0-94.0 [facility] ([place]) Comment on above: Order Comment: Pre-A dmission Testing Performed By: #### A JEWEL, GFR, CBC, ADIFF, BMP #### [address] [address] Platelet 299 10 3/mcL Normal 130-400 [facility] ([place]) Comment on above: Order Comment: Pre-A dmission Testing Performed By: #### A JEWEL, GFR, CBC, ADIFF, BMP #### [address] [address] Platelet mean volume (Bld) [Entitic vol] 7.6 fL Normal 7.4-10.4 [facility] ([place]) Comment on above: Order Comment: Pre-A dmission Testing Performed By: #### A JEWEL, GFR, CBC, ADIFF, BMP #### [address] [address] RBC 5.19 10 6/mcL Normal 4.04-6.13 [facility] ([place]) Comment on above: Order Comment: Pre-A dmission Testing Performed By: #### A JEWEL, GFR, CBC, ADIFF, BMP #### [address] [place], [place] [address] WBC 9.8 10 3/mcL Normal 4.6-10.8 [facility] ([place]) Comment on above: Order Comment: Pre-A dmission Testing Performed By: #### A JEWEL, GFR, CBC, ADIFF, BMP #### [address] [place], [place] [address] LABORATORYOrdered By: SYSTEM SYSTEM on 12-17-2022 Albumin [...] Comment on above: Result Comment: [place] [id number] MRSA PCR Int MRSA DNA not detecte [...] may not be reproducible. Invalid Interpretation Code AH Auto Viro/Sero SS MRSAPCRon 12-17-2022 MRSA (PCR) Not detected Normal Not Detected [facility] ([place]) Comment on above: Result Comment: Note s [id number] Performed By: #### A JEWEL, GFR, CBC, ADIFF, BMP #### [address] [address] MRSA PCR Int Normal [facility] ([place]) Comment on above: Result Comment: MRSA DNA [...] A JEWEL, GFR, CBC, ADIFF, BMP #### [address] [address] .Auto Diffon 07-11-2022 Basophil, Absolute 0.0 10 3/mcL Normal 0.0-0.2 [facility] ([place]) Comment on above: Performed By: #### A JEWEL, GFR, CBC, ADIFF, BMP #### [address] [address] Basophils/100 WBC (Bld) 0.2 % Normal 0.0-2.5 [facility] ([place]) Comment on above: Performed By: #### A JEWEL, GFR, CBC, ADIFF, BMP #### [address] [address] Eosinophil, Absolute 0.0 10 3/mcL Normal 0.0-0.4 [facility] ([place]) Comment on above: Performed By: #### A JEWEL, GFR, CBC, ADIFF, BMP #### [address] [address] Eosinophils/100 WBC (Bld) 0.2 % Normal 0.0-7.0 [facility] ([place]) Comment on above: Performed By: #### A JEWEL, GFR, CBC, ADIFF, BMP #### [address] [address] Lymphocyte, Absolute 2.2 10 3/mcL Normal 0.8-3.9 [facility] ([place]) Comment on above: Performed By: #### A JEWEL, GFR, CBC, ADIFF, BMP #### [address] [address] Lymphocytes/100 WBC (Bld) 14.3 % Normal 10.0-50.0 [facility] ([place]) Comment on above: Performed By: #### A JEWEL, GFR, CBC, ADIFF, BMP #### [address] [address] Monocyte, Absolute 1.7 10 3/mcL High 0.2-1.0 [facility] ([place]) Comment on above: Performed By: #### A JEWEL, GFR, CBC, ADIFF, BMP #### [address] [address] Monocytes/100 WBC (Bld) 10.8 % Normal 1.7-13.0 [facility] ([place]) Comment on above: Performed By: #### A JEWEL, GFR, CBC, ADIFF, BMP #### [address] [address] Neutrophils/100 WBC (Bld) 74.5 % Normal 37.0-80.0 [facility] ([place]) Comment on above: Performed By: #### A JEWEL, GFR, CBC, ADIFF, BMP #### [address] [address] .GFRon 07-11-2022 GFR 111 ml/min/1.73sqm Normal [facility] ([place]) Comment on above: Result Comment: GFR Population [...] A JEWEL, GFR, CBC, ADIFF, BMP #### [address] [address] GFR Non- 92 ml/min/1.73sqm Normal [facility] ([place]) Comment on above: Result Comment: GFR Population [...] A JEWEL, GFR, CBC, ADIFF, BMP #### [address] [address] .NEUABSon 07-11-2022 Neutrophil, Absolute 11.8 10 3/mcL High 2.9-6.2 [facility] ([place]) Comment on above: Performed By: #### A JEWEL, GFR, CBC, ADIFF, BMP #### [address] [address] BMPon 07-11-2022 BUN/Creatinine Ratio 21 ratio Normal 7-27 [facility] ([place]) Comment on above: Performed By: #### A JEWEL, GFR, CBC, ADIFF, BMP #### [address] [address] Calcium [Mass/Vol] 8.7 mg/dL Normal 8.4-10.2 [facility] ([place]) Comment on above: Performed By: #### A JEWEL, GFR, CBC, ADIFF, BMP #### [address] [address] Chloride [Moles/Vol] 103 mmol/L Normal 98-107 [facility] ([place]) Comment on above: Performed By: #### A JEWEL, GFR, CBC, ADIFF, BMP #### [address] [address] CO2 [Moles/Vol] 27 mmol/L Normal 23-31 [facility] ([place]) Comment on above: Performed By: #### A JEWEL, GFR, CBC, ADIFF, BMP #### [address] [address] Creatinine [Mass/Vol] 0.85 mg/dL Normal 0.70-1.30 [facility] ([place]) Comment on above: Performed By: #### A JEWEL, GFR, CBC, ADIFF, BMP #### [address] [address] Electrolyte Balance 7.0 mEq/L Normal 4.0-15.0 [facility] ([place]) Comment on above: Performed By: #### A JEWEL, GFR, CBC, ADIFF, BMP #### [address] [address] Glucose [Mass/Vol] 127 mg/dL High 80-115 [facility] ([place]) Comment on above: Performed By: #### A JEWEL, GFR, CBC, ADIFF, BMP #### [address] [address] Potassium [Moles/Vol] 3.7 mmol/L Normal 3.5-5.1 [facility] ([place]) Comment on above: Performed By: #### A JEWEL, GFR, CBC, ADIFF, BMP #### [address] [address] Sodium [Moles/Vol] 137 mmol/L Normal 136-145 [facility] ([place]) Comment on above: Performed By: #### A JEWEL, GFR, CBC, ADIFF, BMP #### [address] [address] Urea nitrogen [Mass/Vol] 18 mg/dL Normal 7-18 [facility] ([place]) Comment on above: Performed By: #### A JEWEL, GFR, CBC, ADIFF, BMP #### [address] [address] CBCon 07-11-2022 Erythrocyte distribution width (RBC) [Ratio] 15.2 % High 11.5-14.5 [facility] ([place]) Comment on above: Performed By: #### A JEWEL, GFR, CBC, ADIFF, BMP #### [place] [address] Hematocrit (Bld) [Volume fraction] 34.6 % Low 42.0-52.0 [facility] ([place]) Comment on above: Performed By: #### A JEWEL, GFR, CBC, ADIFF, BMP #### [place] [address] Hgb 11.7 G/dL Low 14.0-18.0 [facility] ([place]) Comment on above: Performed By: #### A JEEWL, GFR, CBC, ADIFF, BMP #### [place] [address] MCH (RBC) [Entitic mass] 30.0 pg Normal 27.0-31.2 [facility] ([place]) Comment on above: Performed By: #### A JEWEL, GFR, CBC, ADIFF, BMP #### [place] [address] MCHC 33.8 G/dL Normal 31.8-35.4 [facility] ([place]) Comment on above: Performed By: #### A JEWEL, GFR, CBC, ADIFF, BMP #### [place] [id number] MCV (RBC) [Entitic vol] 88.9 fL Normal 80.0-94.0 [facility] ([place]) Comment on above: Performed By: #### A JEWEL, GFR, CBC, ADIFF, BMP #### [address] [address] Platelet 272 10 3/mcL Normal 130-400 [facility] ([place]) Comment on above: Performed By: #### A JEWEL, GFR, CBC, ADIFF, BMP #### [address] [place], [place] [address] Platelet mean volume (Bld) [Entitic vol] 7.6 fL Normal 7.4-10.4 [facility] ([place]) Comment on above: Performed By: #### A JEWEL, GFR, CBC, ADIFF, BMP #### [address] [address] RBC 3.89 10 6/mcL Low 4.04-6.13 [facility] ([place]) Comment on above: Performed By: #### A JEWEL, GFR, CBC, ADIFF, BMP #### [address] [address] WBC 15.8 10 3/mcL High 4.6-10.8 [facility] ([place]) Comment on above: Performed By: #### A JEWEL, GFR, CBC, ADIFF, BMP #### [address] [address] LABORATORYOrdered By: Dinora Reed on 07-11-2022 Basophil, [...] 07-10-2022 ABO/Rh Interp Positive Invalid Interpretation Code [facility] ([place]) Comment on above: Performed By: #### A JEWEL, GFR, CBC, ADIFF, BMP #### [address] [address] Gel ABSon 07-10-2022 Antibody Screen Gel Negative Normal [facility] ([place]) Comment on above: Performed By: #### A JEWEL, GFR, CBC, ADIFF, BMP #### [address] [address] LABORATORYOrdered By: Jeannette Sampson on 07-10-2022 ABO/Rh [...] 07/10/2022 9:17:56 AM Ordering Provider: GRICELDA OLIVER [facility] ([place]) Office Visiton 07-05-2022 Follow-up visit Diagnoses/Problems Preoperative [...] an EKG, CXR and blood work at [facility] but noneof it is available to myself [...] years Daily caffeinated coffee consumption 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 Over the last 2 weeks have you felt down, depressed or hopeless? (If yes, answer PHQ-9 below)No PHQ-2 #2. Over the last 2 weeks have you felt little interest or pleasure in doing things? (If yes, answer PHQ-9 below)Yes O2 [id number], (more content not included)... [facility] VITALSon 07-05-2022 Adult depression screening assessment No [facility] Work Phone: Adult depression screening assessment Yes [facility] Work Phone: .Auto Diffon 07-02-2022 Basophil, Absolute 0.1 10 3/mcL Normal 0.0-0.2 [facility] ([place]) Comment on above: Performed By: #### A JEWEL, GFR, CBC, ADIFF, BMP #### [address] [address] Basophils/100 WBC (Bld) 1.1 % Normal 0.0-2.5 [facility] ([place]) Comment on above: Performed By: #### A JEWEL, GFR, CBC, ADIFF, BMP #### [address] [address] Eosinophil, Absolute 0.2 10 3/mcL Normal 0.0-0.4 [facility] ([place]) Comment on above: Performed By: #### A JEWEL, GFR, CBC, ADIFF, BMP #### [address] [address] Eosinophils/100 WBC (Bld) 1.5 % Normal 0.0-7.0 [facility] ([place]) Comment on above: Performed By: #### A JEWEL, GFR, CBC, ADIFF, BMP #### [address] [address] Lymphocyte, Absolute 2.8 10 3/mcL Normal 0.8-3.9 [facility] ([place]) Comment on above: Performed By: #### A JEWEL, GFR, CBC, ADIFF, BMP #### [address] [address] Lymphocytes/100 WBC (Bld) 26.7 % Normal 10.0-50.0 [facility] ([place]) Comment on above: Performed By: #### A JEWEL, GFR, CBC, ADIFF, BMP #### [address] [address] Monocyte, Absolute 1.0 10 3/mcL Normal 0.2-1.0 [facility] ([place]) Comment on above: Performed By: #### A JEWEL, GFR, CBC, ADIFF, BMP #### [address] [place] [address] Monocytes/100 WBC (Bld) 9.6 % Normal 1.7-13.0 [facility] ([place]) Comment on above: Performed By: #### A JEWEL, GFR, CBC, ADIFF, BMP #### [address] [address] Neutrophils/100 WBC (Bld) 61.1 % Normal 37.0-80.0 [facility] ([place]) Comment on above: Performed By: #### A JEWEL, GFR, CBC, ADIFF, BMP #### [address] [address] .GFRon 07-02-2022 GFR 127 ml/min/1.73sqm Normal [facility] ([place]) Comment on above: Result Comment: GFR [...] A JEWEL, GFR, CBC, ADIFF, BMP #### [address] [address] GFR Non- 105 ml/min/1.73sqm Normal [facility] ([place]) Comment on above: Result Comment: GFR [...] A JEWEL, GFR, CBC, ADIFF, BMP #### [address] [address] .NEUABSon 07-02-2022 Neutrophil, Absolute 6.4 10 3/mcL High 2.9-6.2 [facility] ([place]) Comment on above: Performed By: #### A JEWEL, GFR, CBC, ADIFF, BMP #### [address] [address] A1Con 07-02-2022 HbA1c (Bld) [Mass fraction] 5.8 % Normal 4.3-6.4 [facility] ([place]) Comment on above: Performed By: #### A JEWEL, GFR, CBC, ADIFF, BMP #### [address] [address] ALBon 07-02-2022 Albumin Level 3.9 G/dL Normal 3.4-4.8 [facility] ([place]) Comment on above: Performed By: #### A JEWEL, GFR, CBC, ADIFF, BMP #### [address] [address] BMPon 07-02-2022 BUN/Creatinine Ratio 25 ratio Normal 7-27 [facility] ([place]) Comment on above: Performed By: #### A JEWEL, GFR, CBC, ADIFF, BMP #### [address] [address] Calcium [Mass/Vol] 9.4 mg/dL Normal 8.4-10.2 [facility] ([place]) Comment on above: Performed By: #### A JEWEL, GFR, CBC, ADIFF, BMP #### [address] [address] Chloride [Moles/Vol] 103 mmol/L Normal 98-107 [facility] ([place]) Comment on above: Performed By: #### A JEWEL, GFR, CBC, ADIFF, BMP #### [address] [address] CO2 [Moles/Vol] 27 mmol/L Normal 23-31 [facility] ([place]) Comment on above: Performed By: #### A JEWEL, GFR, CBC, ADIFF, BMP #### [address] [address] Creatinine [Mass/Vol] 0.76 mg/dL Normal 0.70-1.30 [facility] ([place]) Comment on above: Performed By: #### A JEWEL, GFR, CBC, ADIFF, BMP #### [address] [address] Electrolyte Balance 11.0 mEq/L Normal 4.0-15.0 [facility] ([place]) Comment on above: Performed By: #### A JEWEL, GFR, CBC, ADIFF, BMP #### [address] [address] Glucose [Mass/Vol] 97 mg/dL Normal 80-115 [facility] ([place]) Comment on above: Performed By: #### A JEWEL, GFR, CBC, ADIFF, BMP #### [address] [address] Potassium [Moles/Vol] 3.8 mmol/L Normal 3.5-5.1 [facility] ([place]) Comment on above: Performed By: #### A JEWEL, GFR, CBC, ADIFF, BMP #### [address] [address] Sodium [Moles/Vol] 141 mmol/L Normal 136-145 [facility] ([place]) Comment on above: Performed By: #### A JEWEL, GFR, CBC, ADIFF, BMP #### [address] [address] Urea nitrogen [Mass/Vol] 19 mg/dL High 7-18 [facility] ([place]) Comment on above: Performed By: #### A JEWEL, GFR, CBC, ADIFF, BMP #### [address] [place] [address] CBCon 07-02-2022 Erythrocyte distribution width (RBC) [Ratio] 15.2 % High 11.5-14.5 [facility] ([place]) Comment on above: Order Comment: Pre-A dmission Testing Performed By: #### A JEWEL, GFR, CBC, ADIFF, BMP #### [place] [address] Hematocrit (Bld) [Volume fraction] 41.7 % Low 42.0-52.0 [facility] ([place]) Comment on above: Order Comment: Pre-A dmission Testing Performed By: #### A JEWEL, GFR, CBC, ADIFF, BMP #### [place] [address] Hgb 14.6 G/dL Normal 14.0-18.0 [facility] ([place]) Comment on above: Order Comment: Pre-A dmission Testing Performed By: #### A JEWEL, GFR, CBC, ADIFF, BMP #### [place] [address] MCH (RBC) [Entitic mass] 30.8 pg Normal 27.0-31.2 [facility] ([place]) Comment on above: Order Comment: Pre-A dmission Testing Performed By: #### A JEWEL, GFR, CBC, ADIFF, BMP #### [address] [address] MCHC 35.1 G/dL Normal 31.8-35.4 [facility] ([place]) Comment on above: Order Comment: Pre-A dmission Testing Performed By: #### A JEWEL, GFR, CBC, ADIFF, BMP #### [address] [address] MCV (RBC) [Entitic vol] 87.7 fL Normal 80.0-94.0 [facility] ([place]) Comment on above: Order Comment: Pre-A dmission Testing Performed By: #### A JEWEL, GFR, CBC, ADIFF, BMP #### [place] [address] Platelet 285 10 3/mcL Normal 130-400 [facility] ([place]) Comment on above: Order Comment: Pre-A dmission Testing Performed By: #### A JEWEL, GFR, CBC, ADIFF, BMP #### [address] [address] Platelet mean volume (Bld) [Entitic vol] 7.6 fL Normal 7.4-10.4 [facility] ([place]) Comment on above: Order Comment: Pre-A dmission Testing Performed By: #### A JEWEL, GFR, CBC, ADIFF, BMP #### [address] [address] RBC 4.75 10 6/mcL Normal 4.04-6.13 [facility] ([place]) Comment on above: Order Comment: Pre-A dmission Testing Performed By: #### A JEWEL, GFR, CBC, ADIFF, BMP #### [address] [address] WBC 10.4 10 3/mcL Normal 4.6-10.8 [facility] ([place]) Comment on above: Order Comment: Pre-A dmission Testing Performed By: #### A JEWEL, GFR, CBC, ADIFF, BMP #### [address] [address] [address] KNEE W/O CONTRAST LEFTon 07-02-2022 CT [...] degenerative changes are seen in the knee. [id number] arthropathy is identified in the medial tibiofemoral [...] 1:33:58 PM Ordering Provider: GRICELDA OLIVER Normal [facility] ([place]) Gel ABOon 07-02-2022 ABO/Rh Interp Positive Invalid Interpretation Code [facility]) Comment on above: Performed By: #### A JEWEL, GFR, CBC, ADIFF, BMP #### [place] [address] Gel ABSon 07-02-2022 Antibody Screen Gel Negative Normal [facility]) Comment on above: Performed By: #### A JEWEL, GFR, CBC, ADIFF, BMP #### [place] [address] LABORATORYOrdered By: Jenny Carrington on 07-02-2022 ABO/Rh [...] Date: 05/31/2022 7:23:13 AM Ordering Provider: ELISEO BRAXTON [facility] ([place]) .Auto Diffon 05-29-2022 Basophil, Absolute 0.2 10 3/mcL Normal 0.0-0.2 [facility] ([place]) Comment on above: Performed By: #### A JEWEL, GFR, CBC, ADIFF, BMP #### [address] [address] Basophils/100 WBC (Bld) 2.0 % Normal 0.0-2.5 [facility] ([place]) Comment on above: Performed By: #### A JEWEL, GFR, CBC, ADIFF, BMP #### [address] [address] Eosinophil, Absolute 0.3 10 3/mcL Normal 0.0-0.4 [facility] ([place]) Comment on above: Performed By: #### A JEWEL, GFR, CBC, ADIFF, BMP #### [address] [address] Eosinophils/100 WBC (Bld) 3.1 % Normal 0.0-7.0 [facility] ([place]) Comment on above: Performed By: #### A JEWEL, GFR, CBC, ADIFF, BMP #### [address] [address] Lymphocyte, Absolute 3.0 10 3/mcL Normal 0.8-3.9 [facility] ([place]) Comment on above: Performed By: #### A JEWEL, GFR, CBC, ADIFF, BMP #### [address] [address] Lymphocytes/100 WBC (Bld) 30.0 % Normal 10.0-50.0 [facility] ([place]) Comment on above: Performed By: #### A JEWEL, GFR, CBC, ADIFF, BMP #### [address] [address] Monocyte, Absolute 1.1 10 3/mcL High 0.2-1.0 [facility] ([place]) Comment on above: Performed By: #### A JEWEL, GFR, CBC, ADIFF, BMP #### [address] [address] Monocytes/100 WBC (Bld) 10.4 % Normal 1.7-13.0 [facility] ([place]) Comment on above: Performed By: #### A JEWEL, GFR, CBC, ADIFF, BMP #### [address] [address] Neutrophils/100 WBC (Bld) 54.5 % Normal 37.0-80.0 [facility] ([place]) Comment on above: Performed By: #### A JEWEL, GFR, CBC, ADIFF, BMP #### [address] [address] .GFRon 05-29-2022 GFR 106 ml/min/1.73sqm Normal [facility] ([place]) Comment on above: Result Comment: GFR Population [...] A JEWEL, GFR, CBC, ADIFF, BMP #### [address] [address] GFR Non- 87 ml/min/1.73sqm Normal [facility] ([place]) Comment on above: Result Comment: GFR Population [...] A JEWEL, GFR, CBC, ADIFF, BMP #### [address] [address] .NEUABSon 05-29-2022 Neutrophil, Absolute 5.5 10 3/mcL Normal 2.9-6.2 [facility] ([place]) Comment on above: Performed By: #### A JEWEL, GFR, CBC, ADIFF, BMP #### [address] [address] APTTon 05-29-2022 aPTT Coag (Bld) [Time] 32.1 s Normal 24.1-34.9 [facility] ([place]) Comment on above: Result Comment: For Heparin anticoagulation therapy, the recommended therapeutic range is: 46.2-75.9 seconds (1.5 - 2.5 the normal plasma mean). Patients on heparin therapy may have an extreme result. Performed By: #### A JEWEL, GFR, CBC, ADIFF, BMP #### [address] [address] Heparin dose (APTT) Unknown Normal [facility]) Comment on above: Performed By: #### A JEWEL, GFR, CBC, ADIFF, BMP #### [address] [address] BMPon 05-29-2022 BUN/Creatinine Ratio 22 ratio Normal 7-27 [facility] ([place]) Comment on above: Performed By: #### B MP, CBC, ANEU, ADIFF, GFR, PRO, APTT #### [address] [address] Calcium [Mass/Vol] 9.8 mg/dL Normal 8.4-10.2 [facility] ([place]) Comment on above: Performed By: #### B MP, CBC, ANEU, ADIFF, GFR, PRO, APTT #### [address] [address] Chloride [Moles/Vol] 103 mmol/L Normal 98-107 [facility] ([place]) Comment on above: Performed By: #### B MP, CBC, ANEU, ADIFF, GFR, PRO, APTT #### [address] [address] CO2 [Moles/Vol] 28 mmol/L Normal 23-31 [facility] ([place]) Comment on above: Performed By: #### B MP, CBC, ANEU, ADIFF, GFR, PRO, APTT #### [address] [address] Creatinine [Mass/Vol] 0.89 mg/dL Normal 0.70-1.30 [facility] ([place]) Comment on above: Performed By: #### B MP, CBC, ANEU, ADIFF, GFR, PRO, APTT #### [address] [address] Electrolyte Balance 8.0 mEq/L Normal 4.0-15.0 [facility]) Comment on above: Performed By: #### B MP, CBC, ANEU, ADIFF, GFR, PRO, APTT #### [address] [address] Glucose [Mass/Vol] 95 mg/dL Normal 80-115 [facility] ([place]) Comment on above: Performed By: #### B MP, CBC, ANEU, ADIFF, GFR, PRO, APTT #### [address] [address] Potassium [Moles/Vol] 3.9 mmol/L Normal 3.5-5.1 [facility] ([place]) Comment on above: Performed By: #### B MP, CBC, ANEU, ADIFF, GFR, PRO, APTT #### [address] [address] Sodium [Moles/Vol] 139 mmol/L Normal 136-145 [facility] ([place]) Comment on above: Performed By: #### B MP, CBC, ANEU, ADIFF, GFR, PRO, APTT #### [address] [address] Urea nitrogen [Mass/Vol] 20 mg/dL High 7-18 [facility] ([place]) Comment on above: Performed By: #### B MP, CBC, ANEU, ADIFF, GFR, PRO, APTT #### [address] [address] CBCon 05-29-2022 Erythrocyte distribution width (RBC) [Ratio] 15.2 % High 11.5-14.5 [facility] ([place]) Comment on above: Performed By: #### A JEWEL, GFR, CBC, ADIFF, BMP #### [place] [address] Hematocrit (Bld) [Volume fraction] 43.3 % Normal 42.0-52.0 [facility] ([place]) Comment on above: Performed By: #### A JEWEL, GFR, CBC, ADIFF, BMP #### [place] [address] Hgb 15.1 G/dL Normal 14.0-18.0 [facility] ([place]) Comment on above: Performed By: #### A JEWEL, GFR, CBC, ADIFF, BMP #### [address] [address] MCH (RBC) [Entitic mass] 30.2 pg Normal 27.0-31.2 [facility] ([place]) Comment on above: Performed By: #### A JEWEL, GFR, CBC, ADIFF, BMP #### [place] [address] MCHC 34.8 G/dL Normal 31.8-35.4 [facility] ([place]) Comment on above: Performed By: #### A JEWEL, GFR, CBC, ADIFF, BMP #### [place] [id number] MCV (RBC) [Entitic vol] 87.0 fL Normal 80.0-94.0 [facility] ([place]) Comment on above: Performed By: #### A JEWEL, GFR, CBC, ADIFF, BMP #### [place] [id number] Platelet 311 10 3/mcL Normal 130-400 [facility] ([place]) Comment on above: Performed By: #### A JEWEL, GFR, CBC, ADIFF, BMP #### [address] [address] [address] Platelet mean volume (Bld) [Entitic vol] 7.2 fL Low 7.4-10.4 [facility] ([place]) Comment on above: Performed By: #### A JEWEL, GFR, CBC, ADIFF, BMP #### [address] [address] RBC 4.98 10 6/mcL Normal 4.04-6.13 [facility] ([place]) Comment on above: Performed By: #### A JEWEL, GFR, CBC, ADIFF, BMP #### [place] [id number] WBC 10.1 10 3/mcL Normal 4.6-10.8 [facility] ([place]) Comment on above: Performed By: #### A JEWEL, GFR, CBC, ADIFF, BMP #### [address] [address] PROon 05-29-2022 INR Coag (PPP) [Relative time] 1.1 {INR} Normal 0.9-1.2 [facility] ([place]) Comment on above: Result Comment: Constantin dard [...] A JEWEL, GFR, CBC, ADIFF, BMP #### [address] [address] PT Coag (PPP) [Time] 12.3 s Normal 9.7-13.9 [facility] ([place]) Comment on above: Performed By: #### A JEWEL, GFR, CBC, ADIFF, BMP #### [address] [address] Office Visiton 05-25-2022 Follow-up visit Diagnoses/Problems Arthritis [...] these surgeons which will be done at [facility]. Dr Gricelda Oliver for his knees and Dr Eliseo Braxton for his spine. Both are at : [address] [facility] [address] [facility] [address] fax [phone] Review of Systems Patient has severe chronic [...] May 2020 (more content not included)... Normal [employer] Office Visit (Allergy/Immuno logy)on 05-25-2022 Follow-up visit [...] may re-assess you and develop a more intermission coordinator plan.1 1 Amended By: Martinez Oh; May [...] in the past. Current mask FFM Current [employer] RALPH chip read:usage 88/90 days usage 7 [...] sleepiness. 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 Normal [employer] PHQ-2 VITALSon 05-25-2022 Adult depression screening assessment No [facility] Work Phone: CBCon 05-18-2022 Erythrocyte distribution width (RBC) [Ratio] 15.1 % High 11.5 - 14.5 [facility] Comment on above: Performed By: #### C BC #### [facility] [address] [place] [address] Hematocrit (Bld) [Volume fraction] 46.3 % Normal 41.0 - 52.0 [facility] Comment on above: Performed By: #### C BC #### [facility] [address] [place] [address] Hemoglobin (Bld) [Mass/Vol] 15.5 g/dL Normal 13.5 - 17.5 [facility] Comment on above: Performed By: #### C BC #### [facility] [address] [place] [address] MCHC (RBC) [Mass/Vol] 33.5 g/dL Normal 32.0 - 36.0 [facility] Comment on above: Performed By: #### C BC #### [facility] [address] [place] [address] MCV (RBC) [Entitic vol] 89 fL Normal 80 - 100 [facility] Comment on above: Performed By: #### C BC #### [facility] [address] [place] [address] NUCLEATED RBC 0.0 /100 WBC Normal 0.0-0.0 [facility] Comment on above: Performed By: #### C BC #### [facility] [address] [place] [address] Platelets (Bld) [#/Vol] 308 10*3/uL Normal 150 - 450 [facility] Comment on above: Performed By: #### C BC #### [facility] [address] [place] [address] RBC 5.19 x10E12/L Normal 4.50 - 5.90 [facility] Comment on above: Performed By: #### C BC #### [facility] [address] [place] [address] WBC (Bld) [#/Vol] 10.3 10*3/uL Normal 4.4 - 11.3 [facility] Comment on above: Performed By: #### C BC #### [facility] [address] [place] [address] COMPREHENSIVE PANELon 2022 Albumin [Mass/Vol] 4.7 g/dL Normal 3.4 - 5.0 [facility] Comment on above: Performed By: #### C MP #### [facility] [address] [place] [address] ALP [Catalytic activity/Vol] 52 U/L Normal 33 - 136 [facility] Comment on above: Performed By: #### C MP #### [facility] [address] [place] [address] ALT [Catalytic activity/Vol] 21 U/L Normal 10 - 52 [facility] Comment on above: Result Comment: Perla ents treated with Sulfasalazine may generate falsely decreased results for ALT. Performed By: #### C MP #### [facility] [address] [place] [address] Anion gap [Moles/Vol] 15 mmol/L Normal 10 - 20 [facility] Comment on above: Performed By: #### C MP #### [facility] [address] [place] [address] AST [Catalytic activity/Vol] 14 U/L Normal 9 - 39 [facility] Comment on above: Performed By: #### C MP #### [facility] [address] [place] [address] Bilirubin [Mass/Vol] 0.4 mg/dL Normal 0.0 - 1.2 [facility] Comment on above: Performed By: #### C MP #### [facility] [address] [place] [address] Calcium [Mass/Vol] 9.7 mg/dL Normal 8.6 - 10.6 [facility] Comment on above: Performed By: #### C MP #### [facility] [address] [place] [address] Chloride [Moles/Vol] 103 mmol/L Normal 98 - 107 [facility] Comment on above: Performed By: #### C MP #### [facility] [address] [place] [address] Creatinine [Mass/Vol] 0.93 mg/dL Normal 0.50 - 1.30 [facility] Comment on above: Performed By: #### C MP #### [facility] [address] [place] [address] eGFR MALE >90 Normal >90 [facility] Comment on above: Result Comment: CALC ULATIONS OF ESTIMATED GFR ARE PERFORMED USING THE 2020 CKD-EPI STUDY REFIT EQUATION WITHOUT THE RACE VARIABLE FOR THE IDMS-TRACEABLE CREATININE METHODS. https://jasn.asnjournals.org/content//ASN.51536 [address] Performed By: #### C MP #### [facility] [address] [place] [address] Glucose [Mass/Vol] 106 mg/dL High 74 - 99 [facility] Comment on above: Performed By: #### C MP #### [facility] [address] [place] [address] HCO3 (Bld) [Moles/Vol] 28 mmol/L Normal 21 - 32 [facility] Comment on above: Performed By: #### C MP #### [facility] [address] [place] [address] Potassium [Moles/Vol] 4.0 mmol/L Normal 3.5 - 5.3 [facility] Comment on above: Performed By: #### C MP #### [facility] [address] [place] [address] Protein [Mass/Vol] 7.3 g/dL Normal 6.4 - 8.2 [facility] Comment on above: Performed By: #### C MP #### [facility] [address] [place] [address] Sodium [Moles/Vol] 142 mmol/L Normal 136 - 145 [facility] Comment on above: Performed By: #### C MP #### [facility] [address] [place] [address] Urea nitrogen [Mass/Vol] 24 mg/dL High 6 - 23 [facility] Comment on above: Performed By: #### C MP #### [facility] [address] [place] [address] LIPID PANEL (CORONARY RISK 2 )on 05-18-2022 Cholesterol [Mass/Vol] 191 mg/dL Normal 0 - 199 [facility] Comment on above: Result Comment: [...] dosing. Performed By: #### L IPID #### [facility] [address] [place] [address] Cholesterol in HDL [Mass/Vol] 43.4 mg/dL Normal [facility] Comment on above: Result Comment: . AGE VERY LOW LOW NORMAL HIGH 0-19 Y < 35 < 40 40-45 ---- 20-24 Y ---- < 40 >45 ---- >24 Y ---- < 40 40-60 >60 . Performed By: #### L IPID #### [facility] [address] [place] [address] Cholesterol in LDL [Mass/Vol] 131 mg/dL High 0 - 99 [facility] Comment on above: Result Comment: . NEAR BORD AGE DESIRABLE OPTIMAL HIGH HIGH VERY HIGH 0-19 Y 0 - 109 --- 110-129 >/= 130 ---- 20-24 Y 0 - 119 --- 120-159 >/= 160 ---- >24 Y 0 - 99 100-129 130-159 160-189 >/=190 . Performed By: #### L IPID #### [facility] [address] [place] [address] Cholesterol in VLDL [Mass/Vol] 16 mg/dL Normal 0 - 40 [facility] Comment on above: Performed By: #### L IPID #### [facility] [address] [place] [address] Cholesterol.total/Chol esterol in HDL [Mass ratio] 4.4 {ratio} Normal [facility] Comment on above: Result Comment: REF VALUES DESIRABLE < 3.4 HIGH RISK > 5.0 Performed By: #### L IPID #### [facility] [address] [place] [address] Triglyceride [Mass/Vol] 82 mg/dL Normal 0 - 149 [facility] Comment on above: Result Comment: [...] Performed By: #### L IPID #### [facility] [address] [place] [address] Laboratory - Chemistry and C hemistry - challengeon 05-18-2022 Albumin BCP dye [Mass/Vol] 4.7 g/dL 3.4 - 5.0 [facility] Work Phone: ALP [Catalytic activity/Vol] 52 U/L 33 - 136 [facility] Work Phone: ALT With P-5'-P [Catalytic activity/Vol] 21 U/L 10 - 52 [facility] Work Phone: Comment on above: Patients treated wit h Sulfasalazine may generate falsely decreased results for ALT. Anion gap [Moles/Vol] 15 mmol/L 10 - 20 [facility] Work Phone: AST With P-5'-P [Catalytic activity/Vol] 14 U/L 9 - 39 [facility] Work Phone: Bilirubin [Mass/Vol] 0.4 mg/dL 0.0 - 1.2 [facility] Work Phone: Calcium [Mass/Vol] 9.7 mg/dL 8.6 - 10.6 [facility] Work Phone: Chloride [Moles/Vol] 103 mmol/L 98 - 107 [facility] Work Phone: CO2 [Moles/Vol] 28 mmol/L 21 - 32 [facility] Work Phone: Creatinine [Mass/Vol] 0.93 mg/dL See Below [facility] Work Phone: Comment on above: Reference Range: 0.5 0 - 1.30 Glucose [Mass/Vol] 106 mg/dL above high threshold 74 - 99 [facility] Work Phone: Potassium [Moles/Vol] 4.0 mmol/L 3.5 - 5.3 [facility] Work Phone: Protein [Mass/Vol] 7.3 g/dL 6.4 - 8.2 [facility] Work Phone: Sodium [Moles/Vol] 142 mmol/L 136 - 145 [facility] Work Phone: TSH Qn 1.04 m[IU]/L See Below [facility] Work Phone: Comment on above: Reference Range: 0.4 4 - 3.98 TSH testing is performed using different testing methodology at [facility] than at other [facility]. Direct result comparisons should only be made within the same method. Urea nitrogen [Mass/Vol] 24 mg/dL above high threshold 6 - 23 [facility] Work Phone: Laboratory - Hematology and Cell countson 05-18-2022 Erythrocyte distribution width (RBC) [Ratio] 15.1 % above high threshold See Below [facility] Work Phone: Comment on above: Reference Range: 11. 5 - 14.5 Hematocrit (Bld) [Volume fraction] 46.3 % See Below [facility] Work Phone: Comment on above: Reference Range: 41. 0 - 52.0 Hemoglobin (Bld) [Mass/Vol] 15.5 g/dL See Below [facility] Work Phone: Comment on above: Reference Range: 13. 5 - 17.5 MCHC (RBC) [Mass/Vol] 33.5 g/dL See Below [facility] Work Phone: Comment on above: Reference Range: 32. 0 - 36.0 MCV (RBC) [Entitic vol] 89 fL 80 - 100 [facility] Work Phone: Platelets (Bld) [#/Vol] 308 10*3/uL 150 - 450 [facility] Work Phone: RBC (Bld) [#/Vol] 5.19 {x10E12/L} See Below [facility] Work Phone: Comment on above: Reference Range: 4.5 0 - 5.90 WBC (Bld) [#/Vol] 10.3 10*3/uL 4.4 - 11.3 [facility] Work Phone: Lipid Panelon 05-18-2022 Cholesterol [Mass/Vol] 191 mg/dL 0 - 199 [facility] Work Phone: Comment on [...] dosing. Cholesterol in HDL [Mass/Vol] 43.4 mg/dL [facility] [employer] Work Phone: Comment on above: . AGE VERY LOW LOW N ORMAL HIGH 0-19 Y < 35 < 40 40-45 ---- 20-24 Y ---- < 40 >45 ---- >24 Y ---- < 40 40-60 >60. Cholesterol in LDL [Mass/Vol] 131 mg/dL above high threshold 0 - 99 [facility] Work Phone: Comment on above: . NEAR BORD AGE IGNACIO RABLE OPTIMAL HIGH HIGH VERY HIGH 0-19 Y 0 - 109 --- 110-129 >/= 130 ---- 20-24 Y 0 - 119 --- 120-159 >/= 160 ---- >24 Y 0 - 99 100-129 130-159 160-189 >/=190. Cholesterol.total/Chol esterol in HDL [Mass ratio] 4.4 {ratio} [facility] [employer] Work Phone: Comment on above: REF VALUESDESIRABLE < 3.4HIGH RISK > 5.0 Triglyceride [Mass/Vol] 82 mg/dL 0 - 149 [facility] Work Phone: Comment on [...] Phone: No Panel Informationon 05-18 >90 >90 [facility] Work Phone: Comment on above: CALCULATIONS OF TAM MATED GFR ARE PERFORMED USING THE 2020 CKD-EPI STUDY REFIT EQUATION WITHOUT THE RACE VARIABLE FOR THE IDMS-TRACEABLE CREATININE METHODS.https://jasn.asnjournals.org/content//A SN.6177832283 0.0 {/100_WBC} 0.0-0.0 [facility] Work Phone: TSH WITH REFLEX TO FREE T4 I F ABNORMALon 05-18-2022 TSH Qn 1.04 m[IU]/L Normal 0.44 - 3.98 [facility] Comment on above: Result Comment: TSH testing is performed using different testing methodology at [facility] than at other [facility]. Direct result comparisons should only be made within the same method. Performed By: #### T HYDS #### [facility] [address] [place] [address] VITAMIN D, 25-HYDROXYon VITAMIN D, 25-HYDROXY 61 ng/mL Normal [facility] Comment on above: Result Comment: . DEFICIENCY: < 20 NG/ML INSUFFICIENCY: 20-29 NG/ML SUFFICIENCY: 30-100 NG/ML THIS ASSAY ACCURATELY QUANTIFIES THE SUM OF VITAMIN D3, 25-HYDROXY AND VIT D2,25-HYDROXY. Performed By: #### V TDOH #### [facility] [address] [place] [address] Vitamin D 25-Hydroxyon 05-18 25-hydroxyvitamin D3 [Mass/Vol] [...] seen. No stenosis. Paraspinal musculature: Normal. 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, most prominently T12-L1 [...] Date: 05/09/2022 12:52:17 PM Ordering Provider: ELISEO Ypeez [facility]) .Auto Diffon 04-27-2022 Basophil, Absolute 0.1 10 3/mcL Normal 0.0-0.2 [facility] ([place]) Comment on above: Performed By: #### A JEWEL, GFR, CBC, ADIFF, BMP #### [address] [address] Basophils/100 WBC (Bld) 0.9 % Normal 0.0-2.5 [facility] ([place]) Comment on above: Performed By: #### A JEWEL, GFR, CBC, ADIFF, BMP #### [address] [address] Eosinophil, Absolute 0.3 10 3/mcL Normal 0.0-0.4 [facility] ([place]) Comment on above: Performed By: #### A JEWEL, GFR, CBC, ADIFF, BMP #### [address] [address] Eosinophils/100 WBC (Bld) 2.8 % Normal 0.0-7.0 [facility] ([place]) Comment on above: Performed By: #### A JEWEL, GFR, CBC, ADIFF, BMP #### [address] [address] Lymphocyte, Absolute 2.7 10 3/mcL Normal 0.8-3.9 [facility] ([place]) Comment on above: Performed By: #### A JEWEL, GFR, CBC, ADIFF, BMP #### [address] [address] Lymphocytes/100 WBC (Bld) 21.7 % Normal 10.0-50.0 [facility] ([place]) Comment on above: Performed By: #### A JEWEL, GFR, CBC, ADIFF, BMP #### [address] [address] Monocyte, Absolute 1.1 10 3/mcL High 0.2-1.0 [facility] ([place]) Comment on above: Performed By: #### A JEWEL, GFR, CBC, ADIFF, BMP #### [address] [address] Monocytes/100 WBC (Bld) 8.6 % Normal 1.7-13.0 [facility] ([place]) Comment on above: Performed By: #### A JEWEL, GFR, CBC, ADIFF, BMP #### [address] [address] Neutrophils/100 WBC (Bld) 66.0 % Normal 37.0-80.0 [facility] ([place]) Comment on above: Performed By: #### A JEWEL, GFR, CBC, ADIFF, BMP #### [address] [address] .GFRon 04-27-2022 GFR 107 ml/min/1.73sqm Normal [facility] ([place]) Comment on above: Result Comment: GFR Population [...] A JEWEL, GFR, CBC, ADIFF, BMP #### [address] [address] GFR Non- 88 ml/min/1.73sqm Normal [facility] ([place]) Comment on above: Result Comment: GFR Population [...] A JEWEL, GFR, CBC, ADIFF, BMP #### [address] [address] .NEUABSon 04-27-2022 Neutrophil, Absolute 8.1 10 3/mcL High 2.9-6.2 [facility] ([place]) Comment on above: Performed By: #### A JEWEL, GFR, CBC, ADIFF, BMP #### [address] [address] ALBon 04-27-2022 Albumin Level 3.9 G/dL Normal 3.4-4.8 [facility] ([place]) Comment on above: Performed By: #### A JEWEL, GFR, CBC, ADIFF, BMP #### [address] [address] BMPon 04-27-2022 BUN/Creatinine Ratio 24 ratio Normal 7-27 [facility] ([place]) Comment on above: Performed By: #### A JEWEL, GFR, CBC, ADIFF, BMP #### [address] [address] Calcium [Mass/Vol] 9.2 mg/dL Normal 8.4-10.2 [facility] ([place]) Comment on above: Performed By: #### A JEWEL, GFR, CBC, ADIFF, BMP #### [address] [address] Chloride [Moles/Vol] 106 mmol/L Normal 98-107 [facility] ([place]) Comment on above: Performed By: #### A JEWEL, GFR, CBC, ADIFF, BMP #### [address] [address] CO2 [Moles/Vol] 29 mmol/L Normal 23-31 [facility] ([place]) Comment on above: Performed By: #### A JEWEL, GFR, CBC, ADIFF, BMP #### [address] [address] Creatinine [Mass/Vol] 0.88 mg/dL Normal 0.70-1.30 [facility] ([place]) Comment on above: Performed By: #### A JEWEL, GFR, CBC, ADIFF, BMP #### [address] [address] Electrolyte Balance 8.0 mEq/L Normal 4.0-15.0 [facility] ([place]) Comment on above: Performed By: #### A JEWEL, GFR, CBC, ADIFF, BMP #### [address] [address] Glucose [Mass/Vol] 115 mg/dL Normal 80-115 [facility] ([place]) Comment on above: Performed By: #### A JEWEL, GFR, CBC, ADIFF, BMP #### [address] [address] Potassium [Moles/Vol] 4.4 mmol/L Normal 3.5-5.1 [facility] ([place]) Comment on above: Performed By: #### A JEWEL, GFR, CBC, ADIFF, BMP #### [address] [address] Sodium [Moles/Vol] 143 mmol/L Normal 136-145 [facility] ([place]) Comment on above: Performed By: #### A JEWEL, GFR, CBC, ADIFF, BMP #### [address] [address] Urea nitrogen [Mass/Vol] 21 mg/dL High 7-18 [facility] ([place]) Comment on above: Performed By: #### A JEWEL, GFR, CBC, ADIFF, BMP #### [address] [address] CBCon 04-27-2022 Erythrocyte distribution width (RBC) [Ratio] 15.8 % High 11.5-14.5 [facility] ([place]) Comment on above: Performed By: #### A JEWEL, GFR, CBC, ADIFF, BMP #### [place] [id number] Hematocrit (Bld) [Volume fraction] 43.2 % Normal 42.0-52.0 [facility] ([place]) Comment on above: Performed By: #### A JEWEL, GFR, CBC, ADIFF, BMP #### [place] [address] Hgb 14.9 G/dL Normal 14.0-18.0 [facility] ([place]) Comment on above: Performed By: #### A JEWEL, GFR, CBC, ADIFF, BMP #### [address] [address] MCH (RBC) [Entitic mass] 30.4 pg Normal 27.0-31.2 [facility] ([place]) Comment on above: Performed By: #### A JEWEL, GFR, CBC, ADIFF, BMP #### [place] [id number] MCHC 34.4 G/dL Normal 31.8-35.4 [facility] ([place]) Comment on above: Performed By: #### A JEWEL, GFR, CBC, ADIFF, BMP #### [address] [address] MCV (RBC) [Entitic vol] 88.3 fL Normal 80.0-94.0 [facility] ([place]) Comment on above: Performed By: #### A JEWEL, GFR, CBC, ADIFF, BMP #### [place] [address] [place], [place] [address] Platelet 281 10 3/mcL Normal 130-400 [facility] ([place]) Comment on above: Performed By: #### A JEWEL, GFR, CBC, ADIFF, BMP #### [place] [address] [place], [place] [address] Platelet mean volume (Bld) [Entitic vol] 7.8 fL Normal 7.4-10.4 [facility] ([place]) Comment on above: Performed By: #### A JEWEL, GFR, CBC, ADIFF, BMP #### [address] [address] RBC 4.89 10 6/mcL Normal 4.04-6.13 [facility] ([place]) Comment on above: Performed By: #### A JEWEL, GFR, CBC, ADIFF, BMP #### [address] [address] WBC 12.3 10 3/mcL High 4.6-10.8 [facility] ([place]) Comment on above: Performed By: #### A JEWEL, GFR, CBC, ADIFF, BMP #### [address] [address] No Panel Informationon 03-30 Please click on [...] History of (more content not included)... Normal [employer] PHQ-2 VITALSon 03-30-2022 Adult depression screening assessment No [facility] Work Phone: Adult depression screening assessment Yes [facility] Work Phone: SPINE, LUMBOSACRAL; MIN 4 EWSon 03-30-2022 SPINE, LUMBOSACRAL; MIN 4 VIEWS Patient Name: LIDEFONSO ROCHA STUDY: SPINE, LUMBOSACRAL MIN 4 VIEWS; 03/30/2022 10:47 am INDICATION: low back pain M54.50: Low back pain M54.41: Acute right-sided low back pain with right-sided sciatica. COMPARISON: None. ACCESSION NUMBER(S): [id number] ORDERING CLINICIAN: OPAL MEDINA FINDINGS: Lumbar spine, multiple views There is moderate multilevel disc space narrowing osteophytosis throughout the lumbar spine worse at L1-L2. Moderate facet disease lower lumbar spine. There is no fracture. There is no spondylolisthesis IMPRESSION: Moderate facet disease lower lumbar spine. 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 COMPARISON: 09/29/2019 ACCESSION NUMBER(S): [id number] ORDERING CLINICIAN: GRICELDA GUARDADO FINDINGS: Bilateral knees, four views There is severe joint space narrowing with sclerosis and osteophytosis the medial compartments bilaterally. Bilateral genu varum. Mild degenerative change the lateral and patellofemoral compartments as well. 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 [employer] Occasional alcohol [...] Oct 13 2021 10:35AM EST (Author) [facility] 10-13-2021 XR Knee 4 Views Please click on the link to view the study images Normal [facility] Work Phone: XR Knee 4 Views Normal [facility] 130 DO Work Phone: XR Knee [...] years Daily caffeinated coffee consumption 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 Normal [employer] Office Visiton 07-14-2021 Follow-up visit Diagnoses/Problems Cellulitis [...] Keflex and Bactrim(Generic) F/u with Dr Scott [facility] [phone] Must be seen next week. f/u Dr [...] for hospital follow-up. Patient was admitted to [facility] on June 24 and discharged June [...] day sm (more content not included)... Normal [employer] LABORATORYOrdered By: Deandre Aragon on 06-27-2021 Creatinine [Mass/Vol] 0.77 mg/dL Invalid Interpretation Code 0.70 - 1.30 mg/dL AO ADM SS LDose Vancomycin:(trough) See eMAR (2/15/22 9:01 AM) Invalid Interpretation Code AO Chemistry [...] Culture Wound Deep Panel Culture results pending. [facility] Work Phone: GS No organisms seen. [facility] Work Phone: LABORATORYOrdered By: Ela Garcia on [...] Routine cultures are held for [address] [facility] Work Phone: Microscopic examination of blood, culture Culture has been received in lab and is no growth to date. Routine cultures are held for [address] [facility] Work Phone: BASIC METABOLIC PANELon 05-2 Anion gap [Moles/Vol] 10 mmol/L Normal 10 - 20 [facility] Comment on above: Performed By: #### B MP #### [address] [address] Calcium [Mass/Vol] 8.9 mg/dL Normal 8.6 - 10.3 [facility] Comment on above: Performed By: #### B MP #### [facility] [address] [place] [address] Chloride [Moles/Vol] 104 mmol/L Normal 98 - 107 [facility] Comment on above: Performed By: #### B MP #### [address] [address] Creatinine [Mass/Vol] 0.91 mg/dL Normal 0.50 - 1.30 [facility] Comment on above: Performed By: #### B MP #### [address] [place] [address] GFR- AM. >60 Normal >60 [facility] Comment on above: Result Comment: CALC ULATIONS OF ESTIMATED GFR ARE PERFORMED USING THE MDRD STUDY EQUATION FOR THE IDMS-TRACEABLE CREATININE METHODS. CLIN CHEM 2007;53:766-72 Performed By: #### B MP #### [address] [place] [address] GFR-NON AM. >60 Normal >60 [facility] Comment on above: Performed By: #### B MP #### [address] [place] [address] Glucose [Mass/Vol] 82 mg/dL Normal 74 - 99 [facility] Comment on above: Performed By: #### B MP #### [address] [place] [address] HCO3 (Bld) [Moles/Vol] 27 mmol/L Normal 21 - 32 [facility] Comment on above: Performed By: #### B MP #### [address] [place] [address] Potassium [Moles/Vol] 3.5 mmol/L Normal 3.5 - 5.3 [facility] Comment on above: Performed By: #### B MP #### [address] [place] [address] Sodium [Moles/Vol] 137 mmol/L Normal 136 - 145 [facility] Comment on above: Performed By: #### B MP #### [address] [place] [address] Urea nitrogen [Mass/Vol] 17 mg/dL Normal 6 - 23 [facility] Comment on above: Performed By: #### B MP #### [address] [place] [address] History and Physical - Surgi cirilo Update [...] Last Updated: 06-Oct-2019 15:51 by Monica Earl) [facility] MISCELLANEOUS CULT./SM.BACT. on 10-06-2019 MISCELLANEOUS CULT./SM.BACT. PATIENT: ILDEFONSO ROCHA LOCATION: [facility] BILL#: [id number] : 64 AGE: SEX: M ORDERED BY: [...] DOSE DEPENDENT NS=NONSUSCEPTIBLE X=REPORTED IN ERROR Normal [facility] Comment on above: Performed By: #### M [facility] #### [facility] [address] [place] [address] Operative Reports - Climaxtravon 10-06-2019 Operative Reports - [place] PROCEDURE: Incision and drainage of right hemiscrotal [...] Monica Earl MD EST EST DICTATION NUMBER: [id number] INTERNAL JOB NUMBER: [id number] Electronic Signatures: Monica Earl) (Signed on 13-Oct-2019 15:03) Authored Unsigned, Draft (SYS GENERATED) (Entered on 06-Oct-2019 16:54) Entered Last Updated: 13-Oct-2019 15:03 by Monica Earl) Normal [facility] Histologyon 10-06-2019 [facility] Name ILDEFONSO ROCHA Pathologist: JEROME LYON [...] 0.5 cm and 0.5 cm in length. Inspector Timers sections are submitted in one cassette. ELEAZAR nolasco/10/06/2019 [facility] Comment on above: Performed By: #### P #### [facility] [address] [facility] [address] Preop Checkliston 10-06-2019 Preop Checklist Preop Checklist: Preop Checklist: Arrival [id number] Arrival Time12:42 Procedure Typeabcess removal NPO [id number] 00:00 ID Band Onyes Allergy Bandno known [...] Language / CommunicationEnglish Electronic Signatures: Anayeli Coles (SANA) (Signed 06-Oct-2019 12:43) Authored: Preop Checklist Last Updated: 06-Oct-2019 12:43 by Anayeli Coles (SANA) Normal [facility] Patient Profile - Preop v2on 10-02-2019 Patient Profile - Preop v2 Profile: Initial Info: How to be AddressedChris(1) Spoken Language PreferredEnglish (1) Source of Informationpatient Stated Reason for Admissionabcess removal Primary Contact Name and Numbersee facesheet Patient Belongingsremains with patient Patient Belongings Remaining with Patientcash/credit card; clothing; cell phone/electronics Medications Brought to Hospitalno Are you currently using the Personal Electronic Health Record or [employer]no (1) Are you interested in learning more about KnowFuCARE for the management of your healthnot at this time Instructions Givenappropriate clothing, 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 (procedure may be cancelled if no cdl flatbed truck driver), center location, remove jewerly/piercings, time to arrive, arrival time of 1330 for 1430 no am meds Prep Instructions Reviewedyes Prep Typeper office Instructed to Have No Fluids Aftermidnight General Health: Blood Avoidance/Restrictionsno ne Weight in kg137.5 kilogram(s) Weight in bbe443.1 pound(s) Weight Methodstated Height in cm177.8 centimeter(s) [...] Learning Preferencesverbal instruction Cultural Considerationsnone Developmental Considerationsnone Jew Considerationsnone Other learner availableno [place] RiskPatient location auto qualifies him/her for HIGH RISK. Are there any cultural, spiritual, sikhism practices/values/needs that are important for us to knowno Do you want a visit/item from [facility] Would you like your Mail Technician/Remodeler notifiedno Pain Scalenumerical 0-10 Pain Scale Educationteaching [...] Last Updated: 06-Oct-2019 12:46 by Anayeli Coles (RN) References: 1. Data Referenced From Patient Profile - Preop v2 05-Sep-2018 10:21 Normal [facility] Otheron 09-25-2019 XR Chest 2 views Interpreted by: SARAN BONILLA09/25/19 11:39MRN: [id number] Name: ILDEFONSO ROCHA STUDY:TH CHEST 2 VIEW [...] signed by: SARAN BONILLA 09/25/19 11:39 Normal [facility] Work Phone: CRP, High Sensitivityon 09-10 CRP High sensitivity method [Mass/Vol] 18.3 mg/L Abnormal [facility] Work Phone: Comment on above: hsCRP INTERPRETATION mg/L < 1.0 LOW RELATIVE RISK OF CVD 1.0-3.0 AVERAGE RELATIVE RISK OF CVD > 3.0 HIGH RELATIVE RISK OF CVD Source:CHELSEY TAnabelle A. et al. CIRCULATION 2003;107:499-511. Complete Blood Count + [facility] Basophils/100 WBC (Bld) 1.3 % 0.0 - 2.0 [facility] Work Phone: Eosinophils (Bld) [#/Vol] 0.38 {x10E9/L} See Below [facility] Work Phone: Comment on above: Reference Range: 0.0 0 - 0.70 Eosinophils/100 WBC (Bld) 2.8 % 0.0 - 6.0 [facility] Work Phone: Erythrocyte distribution width (RBC) [Ratio] 14.6 % above high threshold See Below [facility] Work Phone: Comment on above: Reference Range: 11. 5 - 14.5 Hematocrit (Bld) [Volume fraction] 46.0 % See Below [facility] Work Phone: Comment on above: Reference Range: 41. 0 - 52.0 Hemoglobin (Bld) [Mass/Vol] 15.9 g/dL See Below [facility] Work Phone: Comment on above: Reference Range: 13. 5 - 17.5 Lymphocytes (Bld) [#/Vol] 4.03 {x10E9/L} See Below [facility] Work Phone: Comment on above: Reference Range: 1.2 0 - 4.80 Lymphocytes/100 WBC (Bld) 30.0 % See Below [facility] Work Phone: Comment on above: Reference Range: 13. 0 - 44.0 MCHC (RBC) [Mass/Vol] 34.6 g/dL See Below [facility] Work Phone: Comment on above: Reference Range: 32. 0 - 36.0 MCV (RBC) [Entitic vol] 88 fL 80 - 100 [facility] Work Phone: Monocytes (Bld) [#/Vol] 1.38 {x10E9/L} above high threshold See Below [facility] Work Phone: Comment on above: Reference Range: 0.1 0 - 1.00 Monocytes/100 WBC (Bld) 10.3 % 2.0 - 10.0 [facility] Work Phone: Neutrophils (Bld) [#/Vol] 7.40 {x10E9/L} See Below [facility] Work Phone: Comment on above: Reference Range: 1.2 0 - 7.70 Neutrophils/100 WBC (Bld) 55.1 % See Below [facility] Work Phone: Comment on above: Reference Range: 40. 0 - 80.0 Platelets (Bld) [#/Vol] 281 {x10E9/L} 150 - 450 [facility] Work Phone: RBC (Bld) [#/Vol] 5.25 {x10E12/L} See Below [facility] Work Phone: Comment on above: Reference Range: 4.5 0 - 5.90 WBC (Bld) [#/Vol] 13.4 {x10E9/L} above high threshold 4.4 - 11.3 [facility] Work Phone: WBC (Bld) [#/Vol] 0.0 {/100_WBC} 0.0-0.0 [facility] Work Phone: Complete Blood Count + Differential 0.5 % 0.0 - 0.9 [facility] Work Phone: Comment on above: Immature Granulocyte Count (IG) includes promyelocytes, myelocytes and metamyelocytes but does not include bands. Percent differential counts (%) should be interpreted in the context of the absolute cell counts (cells/L). Complete Blood Count + Differential 0.17 {x10E9/L} above high threshold See Below [facility] Work Phone: Comment on above: Reference Range: 0.0 0 - 0.10 Hematology 05-25-2019 Hematocrit (Bld) [Volume fraction] 44.5 % See Below [facility] Work Phone: Comment on above: Reference Range: 41. 0 - 52.0 Hemoglobin (Bld) [Mass/Vol] 15.1 g/dL See Below [facility] Work Phone: Comment on above: Reference Range: 13. 5 - 17.5 MCV (RBC) [Entitic vol] 88 fL 80 - 100 [facility] Work Phone: Platelets (Bld) [#/Vol] 252 {x10E9/L} 150 - 450 [facility] Work Phone: RBC (Bld) [#/Vol] 5.08 {x10E12/L} See Below [facility] Work Phone: Comment on above: Reference Range: 4.5 0 - 5.90 WBC (Bld) [#/Vol] 0.0 {/100_WBC} 0.0-0.0 [facility] Work Phone: WBC (Bld) [#/Vol] 11.5 {x10E9/L} above high threshold 4.4 - 11.3 [facility] Work Phone: Lipid Panelon 05-25-2019 Cholesterol [Mass/Vol] 161 mg/dL 0 - 199 [facility] Work Phone: Comment on [...] guidelines reference: NCEP ATPIII Guidelines, JOSEF 2001, 258:6706-97. Venipuncture immediately after or during the administration of Metamizole may lead to falsely low results. Testing should be performed immediately prior to Metamizole dosing. Cholesterol in HDL [Mass/Vol] 45.1 mg/dL [facility] Work Phone: Comment on above: . AGE VERY LOW LOW N ORMAL HIGH 0-19 Y < 35 < 40 40-45 ---- 20-24 Y ---- < 40 >45 ---- >24 Y ---- < 40 40-60 >60. Cholesterol in LDL [Mass/Vol] 97 mg/dL 0 - 99 [facility] Work Phone: Comment on above: . NEAR BORD AGE IGNACIO RABLE OPTIMAL HIGH HIGH VERY HIGH 0-19 Y 0 - 109 --- 110-129 >/= 130 ---- 20-24 Y 0 - 119 --- 120-159 >/= 160 ---- >24 Y 0 - 99 100-129 130-159 160-189 >/=190. Cholesterol.total/Chol esterol in HDL [Mass ratio] 3.6 {ratio} [facility] Work Phone: Comment on above: REF VALUESDESIRABLE < 3.4HIGH RISK > 5.0 Triglyceride [Mass/Vol] 97 mg/dL 0 - 149 [facility] Work Phone: Comment on [...] Lipid Panel 19 mg/dL 0 - 40 [facility] Work Phone: Metabolic Panelon 05-25-2019 ALP [Catalytic activity/Vol] 58 U/L 33 - 120 [facility] Work Phone: Anion gap [Moles/Vol] 15 mmol/L 10 - 20 - [facility] Work Phone: Bilirubin [Mass/Vol] 0.4 mg/dL 0.0 - 1.2 -[facility] Work Phone: Calcium [Mass/Vol] 9.6 mg/dL 8.6 - 10.6 -[facility] Work Phone: Chloride [Moles/Vol] 103 mmol/L 98 - 107 [facility] Work Phone: CO2 [Moles/Vol] 25 mmol/L 21 - 32 MP-Middleware Engineer [facility] Work Phone: Creatinine [Mass/Vol] 1.02 mg/dL See Below [facility] Internal [facility] Work Phone: Comment on above: Reference Range: 0.5 0 - 1.30 Glucose [Mass/Vol] 92 mg/dL 74 - 99 [facility] Work Phone: Potassium [Moles/Vol] 4.0 mmol/L 3.5 - 5.3 [facility] Work Phone: Protein [Mass/Vol] 6.9 g/dL 6.4 - 8.2 [facility] Work Phone: Sodium [Moles/Vol] 139 mmol/L 136 - 145 [facility] Work Phone: Urea nitrogen [Mass/Vol] 17 mg/dL 6 - 23 [facility] Work Phone: Otheron 05-25-2019 Albumin BCP dye [Mass/Vol] 4.1 g/dL 3.4 - 5.0 [facility] Work Phone: ALT With P-5'-P [Catalytic activity/Vol] 24 U/L 10 - 52 [facility] Work Phone: Comment on above: Patients treated wit h Sulfasalazine may generate falsely decreased results for ALT. AST With P-5'-P [Catalytic activity/Vol] 15 U/L 9 - 39 [facility] Work Phone: Erythrocyte distribution width (RBC) [Ratio] 14.9 % above high threshold See Below [facility] Work Phone: Comment on above: Reference Range: 11. 5 - 14.5 MCHC (RBC) [Mass/Vol] 33.9 g/dL See Below [facility] Work Phone: Comment on above: Reference Range: 32. 0 - 36.0 >60 >60 [facility] Work Phone: Comment on above: CALCULATIONS OF TAM MATED GFR ARE PERFORMED USING THE MDRD STUDY EQUATION FOR THE IDMS-TRACEABLE CREATININE METHODS. CLIN CHEM 2007;53:766-72 Thyroidon 05-25-2019 TSH Qn 1.59 {mIU/L} See Below [facility] Work Phone: Comment on above: Reference Range: 0.4 4 - 3.98 TSH testing is performed using different testing methodology at [facility] than at other [facility]. Direct result comparisons should only be made within the same method.. Patients receiving more than 5 mg/day of biotin may have interference in test results. A sample should be taken no sooner than eight hours after previous dose. Contact [phone] for additional information. Vitamin D 25-Hydroxyon 05-25 Calcidiol [Mass/Vol] 33 ng/mL -[facility] Work Phone: Comment on above: .DEFICIENCY: < 20 NG /MLINSUFFICIENCY: 20-29 NG/MLOPTIMUM LEVEL: 30-80 NG/MLPOSSIBLE TOXICITY: > 80 NG/MLTHIS ASSAY ACCURATELY QUANTIFIES THE SUM OFVITAMIN D3, 25-HYDROXY AND VIT D2,25-HYDROXY. [facility] Name ILDEFONSO ROCHA Pathologist: ANA GARCIA MD Date of Procedure: 09/08/2018 Date Received: 09/08/2018 Date Reported 09/10/2018 Submitting Physician: CURT SOUSA MD Location: [facility] Copy To/Referring/Attending: CURT SOUSA MD Other External [...] in toto in one cassette. jmj/09/09/2018 Normal [facility] History and Physical - Surge ry > [...] Updated: 08-Sep-2018 12:33 by Curt Sousa) Normal [facility] Preop Checkliston 09-08-2018 Preop Checklist Preop Checklist: Preop Checklist: Arrival [id number] Arrival Time10:52 Procedure TypeColonoscopy NPO [id number] 18:00 ID Band Onyes Allergy Bandno known [...] Checklist Last Updated: 08-Sep-2018 11:30 by Vane Oh) Normal [facility] Patient Profile - Preop v2on 09-05-2018 Protein mass conc Profile: Initial Info: How to be AddressedChris Spoken Language PreferredEnglish Source of Informationpatient Are you currently using the Personal Electronic Health Record or [employer]no Are you interested in learning more about MYCARE for the management of your healthyes, information provided Stated Reason for AdmissionColonoscopy Primary Contact Name and NumberDwayne Judd - [phone], Father, he will be back at 1300 Patient Belongingsremains with patient Medications Brought to Hospitalno General Health: Weight in kg129.2 kilogram(s) Weight in pcv977 pound(s) Weight Methodstated Height in cm177.8 centimeter(s) Height in feet5 feet Height in ybtihd12 inch(es) Height Methodstated BMI (kg/m2)40.869 square meter [...] Transitionnone Lives Withparent(s) Living Arrangementshouse [facility] Substance: Current or Former Substance Use [...] Learning Preferencesskill demonstration Cultural Considerationsnone Developmental Considerationsnone Jew Considerationsnone Other learner availableno [place] RiskPatient location auto qualifies him/her for HIGH RISK. Are there any cultural, spiritual, sikhism practices/values/needs that are important for us to [...] 08-Sep-2018 11:35 by Vane Oh (SANA) Normal [facility] Sleep Lab Reporton 9 Sleep Lab Report [facility] SLEEP DISORDER LABOR[facility] NAME: ILDEFONSO ROCHA [facility] REC #: [id number] DATE OF : 1960 DATE OF SERVICE: 07/05/2018 ROOM: REFERRING PHYSICIAN: OPAL MEDINA MD STUDY TYPE: Split night polysomnogram. HISTORY OF CHIEF COMPLAINT: This is a 58-year-old male with a BMI of 44.48, who has a history of hypertension, asthma and COPD. He complains of restless sleep, snoring and witnessed apneas. His Mallie Scale score prior to the test was [...] Sharona Vick DO SLEEP DISORDER LABORATORY Job: [id number] Electronic Signatures: Fallon Vick () (Signed on 09-Jul-2018 13:14) Authored [employer], [facility] (Non-Affiliated) (Entered on 09-Jul-2018 12:55) Entered Last Updated: 09-Jul-2018 13:14 by Fallon Vick () [facility] Vital Signs Date Time Vital Sign Value Performing Clinician Facility 12-09-2024 13:01-0400 Body temperature 98.4 [degF] Dr. Pamela Hernandez MD Work Phone: [facility] 12-09-2024 13:01-0400 Diastolic blood pressure 76 mm[Hg] Dr. Pamela Hernandez MD Work Phone: [facility] 12-09-2024 13:01-0400 Heart rate 84 /min Dr. Pamela Hernandez MD Work Phone: [facility] 12-09-2024 13:01-0400 Respiratory rate 17 /min Dr. Pamela Hernandez MD Work Phone: [facility] 12-09-2024 13:01-0400 SaO2% (BldA) [Mass fraction] 100 % Dr. Pamela Hernandez MD Work Phone: [facility] 12-09-2024 13:01-0400 Systolic blood pressure 132 mm[Hg] Dr. Pamela Hernandez MD Work Phone: [facility] 12-09-2024 10:18-0400 Body height 177.[address] Pamela Hernandez MD Work Phone: [facility] 12-09-2024 10:18-0400 Body mass index (BMI) [Ratio] 40.9 kg/m2 Dr. Pamela Hernandez MD Work Phone: [facility] 12-09-2024 10:18-0400 Body weight 129.[address] Pamela Hernandez MD Work Phone: [facility] 11-30-2024 12:48-0400 Body temperature 97.9 [degF] Dr. Pamela Hernandez MD Work Phone: [facility] 11-30-2024 12:48-0400 Body weight 131.[address] Pamela Hernandez MD Work Phone: [facility] 11-30-2024 12:48-0400 Diastolic blood pressure 98 mm[Hg] Dr. Pamela Hernandez MD Work Phone: [facility] 11-30-2024 12:48-0400 Heart rate 92 /min Dr. Pamela Hernandez MD Work Phone: [facility] 11-30-2024 12:48-0400 Respiratory rate 18 /min Dr. Pamela Hernandez MD Work Phone: [facility] 11-30-2024 12:48-0400 SaO2% (BldA) [Mass fraction] 96 % Dr. Pamela Hernandez MD Work Phone: [facility] 11-30-2024 12:48-0400 Systolic blood pressure 142 mm[Hg] Dr. Pamela Hernandez MD Work Phone: [facility] 02-28-2024 09:46-0400 Body height 173.4 cm Opal Medina MD Work Phone: [facility] 02-28-2024 09:46-0400 Body mass index (BMI) [Ratio] 41.81 kg/m2 Opal Medina MD Work Phone: [facility] 02-28-2024 09:46-0400 Body weight 125.65 kg Opal Medina MD Work Phone: [facility] 02-28-2024 09:46-0400 Diastolic blood pressure 78 mm[Hg] Opal Medina MD Work Phone: [facility] 02-28-2024 09:46-0400 Heart rate 82 /min Opal Medina MD Work Phone: [facility] 02-28-2024 09:46-0400 SaO2% (BldA) [Mass fraction] 96 % Opal Medina MD Work Phone: [facility] 02-28-2024 09:46-0400 Systolic blood pressure 120 mm[Hg] Opal Medina MD Work Phone: [facility] 11-01-2023 09:50-0400 Body height 173.4 cm Opal Medina MD Work Phone: [facility] 11-01-2023 09:50-0400 Body mass index (BMI) [Ratio] 42.62 kg/m2 Opal Medina MD Work Phone: [facility] 11-01-2023 09:50-0400 Body weight 128.1 kg Opal Medina MD Work Phone: [facility] 11-01-2023 09:50-0400 Diastolic blood pressure 74 mm[Hg] Opal Medina MD Work Phone: [facility] 11-01-2023 09:50-0400 Heart rate 79 /min Opal Medina MD Work Phone: [facility] 11-01-2023 09:50-0400 SaO2% (BldA) [Mass fraction] 94 % Opal Medina MD Work Phone: [facility] 11-01-2023 09:50-0400 Systolic blood pressure 122 mm[Hg] Opal Medina MD Work Phone: [facility] 07-31-2023 15:20-0400 Body height 173.4 cm Opal Medina MD Work Phone: [facility] 07-31-2023 15:20-0400 Body mass index (BMI) [Ratio] 42.5 kg/m2 Opal Medina MD Work Phone: [facility] 07-31-2023 15:20-0400 Body weight 127.73 kg Opal Medina MD Work Phone: [facility] 07-31-2023 15:20-0400 Diastolic blood pressure 85 mm[Hg] Opal Medina MD Work Phone: [facility] 07-31-2023 15:20-0400 Heart rate 81 /min Opal Medina MD Work Phone: [facility] 07-31-2023 15:20-0400 SaO2% (BldA) [Mass fraction] 95 % Opal Medina MD Work Phone: [facility] 07-31-2023 15:20-0400 Systolic blood pressure 125 mm[Hg] Opal Medina MD Work Phone: [facility] 07-05-2023 10:33-0500 Body height 173.4 cm Opal Medina MD Work Phone: [facility] 07-05-2023 10:33-0500 Body mass index (BMI) [Ratio] 41.87 kg/m2 Opal Medina MD Work Phone: [facility] 07-05-2023 10:33-0500 Body weight 125.83 kg Opal Medina MD Work Phone: [facility] 07-05-2023 10:33-0500 Diastolic blood pressure 72 mm[Hg] Opal Medina MD Work Phone: [facility] 07-05-2023 10:33-0500 Heart rate 80 /min Opal Medina MD Work Phone: [facility] 07-05-2023 10:33-0500 SaO2% (BldA) [Mass fraction] 95 % Opal Medina MD Work Phone: [facility] 07-05-2023 10:33-0500 Systolic blood pressure 116 mm[Hg] Opal Medina MD Work Phone: [facility] 01-26-2023 20:07-0400 Blood Pressure Cuff Size DR SADIA COLEMAN MD [facility] 01-26-2023 20:07-[address] SADIA COLEMAN MD [facility] 01-26-2023 20:07-[address] SADIA COLEMAN MD [facility] 01-26-2023 20:07-0400 Body temperature 97.7 [degF] DR SADIA COLEMAN MD [facility] 01-26-2023 20:07-0400 Diastolic Blood Pressure Non-Invasive [address]IA COLEMAN MD [facility] 01-26-2023 20:07-0400 Heart rate 77 /min DR SADIA COLEMAN MD [facility] 01-26-2023 20:07-0400 Respiratory rate 18 /min DR SADIA COLEMAN MD [facility] 01-26-2023 20:07-0400 Systolic Blood Pressure Non-Invasive [address] [facility] 01-16-2023 12:01-0400 Body temperature 97.88 [degF] DR GRICELDA OLIVER MD [facility] 01-16-2023 12:01-0400 Diastolic Blood Pressure Non-Invasive [address] GRICELDA OLIVER MD [facility] 01-16-2023 12:01-0400 Heart rate 76 /min DR GRICELDA OLIVER MD [facility] 01-16-2023 12:01-0400 Reason For Taking VItal Signs DR GRICELDA OLIVER MD [facility] 01-16-2023 12:01-0400 Respiratory rate 16 /min DR GRICELDA OLIVER MD [facility] 01-16-2023 12:01-0400 Systolic Blood Pressure Non-Invasive [address] GRICELDA OLIVER MD [facility] 01-16-2023 11:33-0400 Body temperature 97.7 [degF] DR GRICELDA OLIVER MD [facility] 01-16-2023 11:33-0400 Diastolic Blood Pressure Non-Invasive [address] GRICELDA OLIVER MD [facility] 01-16-2023 11:33-0400 Heart rate 75 /min DR GRICELDA OLIVER MD [facility] 01-16-2023 11:33-0400 Reason For Taking VItal Signs DR GRICELDA OLIVER MD [facility] 01-16-2023 11:33-0400 Systolic Blood Pressure Non-Invasive [address] OL[address] MD [facility] 01-16-2023 08:05-0400 Body temperature 97.52 [degF] DR GRICELDA OLIVER MD [facility] 01-16-2023 08:05-0400 Diastolic Blood Pressure Non-Invasive [address] GRICELDA OLIVER MD [facility] 01-16-2023 08:05-0400 Heart rate 63 /min DR GRICELDA OLIVER MD [facility] 01-16-2023 08:05-0400 Reason For Taking VItal Signs DR GRICELDA OLIVER MD [facility] 01-16-2023 08:05-0400 Respiratory rate 16 /min DR GRICELDA OLIVER MD [facility] 01-16-2023 08:05-0400 Systolic Blood Pressure Non-Invasive [address] GRICELDA OLIVER MD [facility] 01-16-2023 04:20-0400 Heart rate 84 /min DR GRICELDA OLIVER MD [facility] 01-16-2023 04:20-0400 Respiratory rate 16 /min DR GRICELDA OLIVER MD [facility] 01-15-2023 14:34-0400 Heart rate 76 /min DR GRICELDA OLIVER MD [facility] 01-15-2023 11:15-0400 Heart rate 74 /min DR GRICELDA OLIVER MD [facility] 01-15-2023 10:08-0400 Body height 172.[address] GRICELDA OLIVER MD [facility] 01-15-2023 10:08-0400 Body weight [address] GRICELDA OLIVER MD [facility] 01-15-2023 10:08-0400 Body weight 39.9 kg/m2 DR GRICELDA OLIVER MD [facility] 01-15-2023 08:55-0400 Body temperature 97.52 [degF] DR GRICELDA OLIVER MD [facility] 01-15-2023 08:45-0400 Respiratory Rate - Anes 6 br/min DR GRICELDA OLIVER MD [facility] 01-15-2023 08:40-0400 Respiratory Rate - Anes 15 br/min DR GRICELDA OLIVER MD [facility] 01-15-2023 08:35-0400 Respiratory Rate - Anes 14 br/min DR GRICELDA OLIVER MD [facility] 01-15-2023 08:30-0400 Body temperature 96.8 [degF] DR GRICELDA OLIVER MD [facility] 01-15-2023 08:15-0400 Body temperature 96.8 [degF] DR GRICELDA OLIVER MD [facility] 01-15-2023 05:40-0400 Body height 172.[address] GRICELDA OLIVER MD [facility] 01-15-2023 05:40-0400 Body temperature 98.06 [degF] DR GRICELDA OLIVER MD [facility] 01-15-2023 05:40-0400 Body weight [address] GRICELDA OLIVER MD [facility] 12-24-2022 10:36-0400 Body height 174 cm Opal Medina MD Work Phone: [facility] 12-24-2022 10:36-0400 Body mass index (BMI) [Ratio] 40.28 kg/m2 Opal Medina MD Work Phone: [facility] 12-24-2022 10:36-0400 Body weight 121.93 kg Opal Medina MD Work Phone: [facility] 12-24-2022 10:36-0400 Diastolic blood pressure 61 mm[Hg] Opal Medina MD Work Phone: [facility] 12-24-2022 10:36-0400 Heart rate 82 /min Opal Medina MD Work Phone: [facility] 12-24-2022 10:36-0400 SaO2% (BldA) [Mass fraction] 97 % Opal Medina MD Work Phone: [facility] 12-24-2022 10:36-0400 Systolic blood pressure 101 mm[Hg] Opal Medina MD Work Phone: [facility] 12-17-2022 08:40-[address] GRICELDA OLIVER MD [facility] 12-17-2022 08:40-[address] GRICELDA OLIVER MD [facility] 12-17-2022 08:40-0400 Body height 172.[address] GRICELDA OLIVER MD [facility] 12-17-2022 08:40-0400 Body weight [address] GRICELDA OLIVER MD [facility] 12-17-2022 08:40-0400 Body weight 39.9 kg/m2 DR GRICELDA OLIVER MD [facility] 12-17-2022 08:40-0400 Diastolic Blood Pressure Non-Invasive [address]ICELDA OLIVER MD [facility] 12-17-2022 08:40-0400 Heart rate 90 /min DR GRICELDA OLIVER MD [facility] 12-17-2022 08:40-0400 Respiratory rate 18 /min DR GRICELDA OLIVER MD [facility] 12-17-2022 08:40-0400 Systolic Blood Pressure Non-Invasive [address]ICELDA OLIVER MD [facility] 10-30-2022 11:31-0400 Body height 174 cm Opal Medina MD Work Phone: [facility] 10-30-2022 11:31-0400 Body mass index (BMI) [Ratio] 40.88 kg/m2 Opal Medina MD Work Phone: [facility] 10-30-2022 11:31-0400 Body weight 123.74 kg Opal Medina MD Work Phone: [facility] 10-30-2022 11:31-0400 Diastolic blood pressure 66 mm[Hg] Opal Medina MD Work Phone: [facility] 10-30-2022 11:31-0400 Heart rate 83 /min Opal Medina MD Work Phone: [facility] 10-30-2022 11:31-0400 SaO2% (BldA) [Mass fraction] 95 % Opal Medina MD Work Phone: [facility] 10-30-2022 11:31-0400 Systolic blood pressure 117 mm[Hg] Opal Medina MD Work Phone: [facility] 07-31-2022 13:21-0400 Diastolic blood pressure 66 mm[Hg] Opal Medina MD Work Phone: [facility] 07-31-2022 13:21-0400 Systolic blood pressure 132 mm[Hg] Opal Medina MD Work Phone: [facility] 07-31-2022 10:39-0400 Body height 177.8 cm Opal Medina MD Work Phone: [facility] 07-31-2022 10:39-0400 Body mass index (BMI) [Ratio] 40.69 kg/m2 Opal Medina MD Work Phone: [facility] 07-31-2022 10:39-0400 Body weight 128.64 kg Opal Medina MD Work Phone: [facility] 07-31-2022 10:39-0400 Heart rate 84 /min Opal Medina MD Work Phone: [facility] 07-31-2022 10:39-0400 SaO2% (BldA) [Mass fraction] 97 % Opal Medina MD Work Phone: [facility] 07-11-2022 12:02-0500 Body temperature 97.34 [degF] DR GRICELDA OLIVER MD [facility] 07-11-2022 12:02-0500 Diastolic Blood Pressure Non-Invasive [address] GRICELDA OLIVER MD [facility] 07-11-2022 12:02-0500 Heart rate 78 /min DR GRICELDA OLIVER MD [facility] 07-11-2022 12:02-0500 Reason For Taking VItal Signs DR GRICELDA OLIVER MD [facility] 07-11-2022 12:02-0500 Respiratory rate 14 /min DR GRICELDA OLIVER MD [facility] 07-11-2022 12:02-0500 Systolic Blood Pressure Non-Invasive [address]DA OLIVER MD [facility] 07-11-2022 07:48-0500 Blood Pressure Cuff Size DR GRICELDA OLIVER MD [facility] 07-11-2022 07:48-[address] GRICELDA OLIVER MD [facility] 07-11-2022 07:48-[address] GRICELDA OLIVER MD [facility] 07-11-2022 07:48-0500 Body temperature 97.88 [degF] DR GRICELDA OLIVER MD [facility] 07-11-2022 07:48-0500 Diastolic Blood Pressure Non-Invasive [address] GRICELDA OLIVER MD [facility] 07-11-2022 07:48-0500 Heart rate 81 /min DR GRICELDA OLIVER MD [facility] 07-11-2022 07:48-0500 Reason For Taking VItal Signs DR GRICELDA OLIVER MD [facility] 07-11-2022 07:48-0500 Respiratory rate 14 /min DR GRICELDA OLIVER MD [facility] 07-11-2022 07:48-0500 Systolic Blood Pressure Non-Invasive [address]ICELDA OLIVER MD [facility] 07-11-2022 07:24-0500 Heart rate 71 /min DR GRICELDA OLIVER MD [facility] 07-11-2022 07:24-0500 Respiratory rate 18 /min DR GRICELDA OLIVER MD [facility] 07-11-2022 06:17-0500 Body temperature 97.34 [degF] DR GRICELDA OLIVER MD [facility] 07-11-2022 06:17-0500 Diastolic Blood Pressure Non-Invasive [address] GRICELDA OLIVER MD [facility] 07-11-2022 06:17-0500 Reason For Taking VItal Signs DR GRICELDA OLIVER MD [facility] 07-11-2022 06:17-0500 Systolic Blood Pressure Non-Invasive [address] GRICELDA OLIVER MD [facility] 07-10-2022 10:19-0500 Mean blood pressure 87 mm[Hg] DR GRICELDA OLIVER MD [facility] 07-10-2022 09:49-0500 Body height 172.[address] GRICELDA OLIVER MD [facility] 07-10-2022 09:49-0500 Body weight 126.[address] GRICELDA OLIVER MD [facility] 07-10-2022 09:49-0500 Body weight 42.48 kg/m2 DR GRICELDA OLIVER MD [facility] 07-10-2022 08:41-0500 Body temperature 97.52 [degF] DR GRICELDA OLIVER MD [facility] 07-10-2022 08:35-0500 Respiratory Rate - Anes 15 br/min DR GRICELDA OLIVER MD [facility] 07-10-2022 08:30-0500 Respiratory Rate - Anes 16 br/min DR GRICELDA OLIVER MD [facility] 07-10-2022 08:25-0500 Respiratory Rate - Anes 15 br/min DR GRICELDA OLIVER MD [facility] 07-10-2022 05:46-0500 Body height 172.[address] GRICELDA OLIVER MD [facility] 07-10-2022 05:46-0500 Body temperature 97.52 [degF] DR GRICELDA OLIVER MD [facility] 07-10-2022 05:46-0500 Body weight 126.[address] GRICELDA OLIVER MD [facility] 07-10-2022 05:46-0500 Heart rate 74 /min DR GRICELDA OLIVER MD [facility] 07-05-2022 14:58-0500 Diastolic blood pressure 78 mm[Hg] Opal Medina Work Phone: [email or web address] Work Phone: 07-05-2022 14:58-0500 Systolic blood pressure 130 mm[Hg] Opal Medina Work Phone: [facility] Work Phone: 07-05-2022 14:45-0500 Body height 177.8 cm Opal Medina Work Phone: [facility] Work Phone: 07-05-2022 14:45-0500 Body mass index (BMI) [Ratio] 40.24 kg/m2 Opal Medina Work Phone: [facility] Work Phone: 07-05-2022 14:45-0500 Body surface area Derived from formula 2.41 m2 Opal Medina Work Phone: [facility] Work Phone: 07-05-2022 14:45-0500 Body weight 127.21 kg Opal Medina Work Phone: [facility] Work Phone: 07-05-2022 14:45-0500 Diastolic blood pressure 87 mm[Hg] Opal Medina Work Phone: [email or web address] Work Phone: 07-05-2022 14:45-0500 Heart rate 91 /min Opal Medina Work Phone: [facility] Work Phone: 07-05-2022 14:45-0500 SaO2% (BldA) [Mass fraction] 96 % Opal Medina Work Phone: [facility] Work Phone: 07-05-2022 14:45-0500 Systolic blood pressure 134 mm[Hg] Opal Medina Work Phone: [facility] Work Phone: 07-02-2022 10:02-0500 Body height 172.[address] GRICELDA OLIVER MD [facility] 07-02-2022 10:02-0500 Body weight 126.[address] GRICELDA OLIVER MD [facility] 05-25-2022 09:51-0500 Body height 177.8 cm Opal Medina Work Phone: [facility] Work Phone: 05-25-2022 09:51-0500 Body mass index (BMI) [Ratio] 39.67 kg/m2 Opal Medina Work Phone: [facility] Work Phone: 05-25-2022 09:51-0500 Body surface area Derived from formula 2.4 m2 Opal Medina Work Phone: [facility] Work Phone: 05-25-2022 09:51-0500 Body weight 125.42 kg Opal Medina Work Phone: [facility] Work Phone: 05-25-2022 09:51-0500 Diastolic blood pressure 77 mm[Hg] Opal Medina Work Phone: [facility] Work Phone: 05-25-2022 09:51-0500 Heart rate 76 /min Opal Medina Work Phone: [email or web address] Work Phone: 05-25-2022 09:51-0500 SaO2% (BldA) [Mass fraction] 98 % Opal Medina Work Phone: [email or web address] Work Phone: 05-25-2022 09:51-0500 Systolic blood pressure 123 mm[Hg] Opal Medina Work Phone: [facility] Work Phone: 03-30-2022 09:56-0500 Diastolic blood pressure 76 mm[Hg] Opal Medina Work Phone: [facility] Work Phone: 03-30-2022 09:56-0500 Systolic blood pressure 118 mm[Hg] Opal Medina Work Phone: [facility] Work Phone: 03-30-2022 09:45-0500 Body mass index (BMI) [Ratio] 40.11 kg/m2 Opal Medina Work Phone: [facility] Work Phone: 03-30-2022 09:45-0500 Body surface area Derived from formula 2.41 m2 Opal Medina Work Phone: [facility] Work Phone: 03-30-2022 09:45-0500 Body weight 126.81 kg Opal Medina Work Phone: [facility] Work Phone: 03-30-2022 09:45-0500 Diastolic blood pressure 88 mm[Hg] Opal Medina Work Phone: [facility] Work Phone: 03-30-2022 09:45-0500 Heart rate 83 /min Opal Medina Work Phone: [facility] Work Phone: 03-30-2022 09:45-0500 SaO2% (BldA) [Mass fraction] 99 % Opal Medina Work Phone: [facility] Work Phone: 03-30-2022 09:45-0500 Systolic blood pressure 134 mm[Hg] Opal Medina Work Phone: [facility] Work Phone: 12-07-2021 15:45-0400 Body mass index (BMI) [Ratio] 41.22 kg/m2 Opal Medina Work Phone: [facility] Work Phone: 12-07-2021 15:45-0400 Body surface area Derived from formula 2.43 m2 Opal Medina Work Phone: [facility] Work Phone: 12-07-2021 15:45-0400 Body weight 130.3 kg Opal Medina Work Phone: [facility] Work Phone: 12-07-2021 15:45-0400 Diastolic blood pressure 80 mm[Hg] Opal Medina Work Phone: [facility] Work Phone: 12-07-2021 15:45-0400 Heart rate 71 /min Opal Medina Work Phone: [facility] Work Phone: 12-07-2021 15:45-0400 SaO2% (BldA) [Mass fraction] 99 % Opal Medina Work Phone: [facility] Work Phone: 12-07-2021 15:45-0400 Systolic blood pressure 125 mm[Hg] Opal Medina Work Phone: [facility] Work Phone: 07-14-2021 10:04-0500 Body mass index (BMI) [Ratio] 42.54 kg/m2 Opal Medina Work Phone: QP-Xqipuqhnpptn-Wd sm[address] Work Phone: 07-14-2021 10:04-0500 Body surface area Derived from formula 2.47 m2 Opal Medina Work Phone: MB-Wjxnixiipfqj-Ah sm[address] Work Phone: 07-14-2021 10:04-0500 Body weight 134.49 kg Opal Medina Work Phone: EN-Kodkovideple-Nn [address] Work Phone: 07-14-2021 10:04-0500 Diastolic blood pressure 73 mm[Hg] Opal Medina Work Phone: MP-Zxsanqpydofk-Qt [address] Work Phone: 07-14-2021 10:04-0500 Heart rate 82 /min Opal Medina Work Phone: TR-Mizjmaioyprh-Cq sm[address] Work Phone: 07-14-2021 10:04-0500 SaO2% (BldA) [Mass fraction] 99 % Opal Medina Work Phone: BQ-Splotxhntnxk-Bb sm[address] Work Phone: 07-14-2021 10:04-0500 Systolic blood pressure 118 mm[Hg] Opal Medina Work Phone: RK-Todwlamadclt-Fq sm[address] Work Phone: 06-30-2021 10:50-0500 Body mass index (BMI) [Ratio] 42.76 kg/m2 Opal Medina Work Phone: UO-Zxvtnsbwkq-Boxw n [id number] Work Phone: 06-30-2021 10:50-0500 Body surface area Derived from formula 2.47 m2 Opal Medina Work Phone: VB-Cmmqnasjbr-Jzlq n [id number] Work Phone: 06-30-2021 10:50-0500 Body weight 135.17 kg Opal Medina Work Phone: FI-Dptwhnrkjv-Yzow n [id number] Work Phone: 06-30-2021 10:50-0500 Diastolic blood pressure 78 mm[Hg] Opal Medina Work Phone: HD-Hcgthsjqzu-Rjoo n [id number] Work Phone: 06-30-2021 10:50-0500 Heart rate 91 /min Opal Medina Work Phone: SW-Xdbtyqjmry-Jczv n [id number] Work Phone: 06-30-2021 10:50-0500 Systolic blood pressure 168 mm[Hg] Opal Medina Work Phone: EZ-Lsiexgxwvu-Bfzo n [id number] Work Phone: 06-27-2021 07:46-0500 Body temperature 97.34 [degF] AVELINA CHAPA APRN-MATERIAL EXPEDITER [facility] 06-27-2021 07:46-0500 Diastolic blood pressure 78 mm[Hg] AVELINA CHAPA APRN-MATERIAL EXPEDITER [facility] 06-27-2021 07:46-0500 Heart rate 65 /min AVELINA SAMMI [employer]KER-MATERIAL EXPEDITER [facility] 06-27-2021 07:46-0500 Reason For Taking VItal Signs AVELINA SAMMI [employer] MAKER-MATERIAL EXP[employer]ER [facility] 06-27-2021 07:46-0500 Respiratory rate 20 /min AVELINA SAMMI [employer] MAKER-MATERIAL EXP[employer]ER [facility] 06-27-2021 07:46-0500 Systolic blood pressure 144 mm[Hg] AVELINA CHAPA [employer] MAKER-MATERIAL EXPEDITER [facility] 06-27-2021 03:23-0500 Body temperature 98.24 [degF] AVELINA CHAPA [employer] MAKER-MATERIAL EXP[employer]ER [facility] 06-27-2021 03:23-0500 Diastolic blood pressure 83 mm[Hg] AVELINA SAMMI [employer] MAKER-MATERIAL EXP[employer]ER [facility] 06-27-2021 03:23-0500 Heart rate 65 /min AVELINA CHAPA [employer] MAKER-MATERIAL EXP[employer]ER [facility] 06-27-2021 03:23-0500 Mean blood pressure 101 mm[Hg] AVELINA CHAPA [employer] MAKER-MATERIAL EXP[employer]ER [facility] 06-27-2021 03:23-0500 Reason For Taking VItal Signs AVELINA CHAPA [employer] MAKER-MATERIAL EXP[employer]ER [facility] 06-27-2021 03:23-0500 Respiratory rate 20 /min AVELINA CHAPA [employer]KER-MATERIAL EXP[employer]ER [facility] 06-27-2021 03:23-0500 Systolic blood pressure 136 mm[Hg] AVELINA CHAPA [employer] MAKER-MATERIAL EXPEDITER [facility] 06-26-2021 20:02-0500 Body temperature 97.88 [degF] AVELINA CHAPA [employer] MAKER-MATERIAL EXP[employer]ER [facility] 06-26-2021 20:02-0500 Diastolic blood pressure 94 mm[Hg] AVELINA CHAPA [employer] MAKER-MATERIAL EXPEDITER [facility] 06-26-2021 20:02-0500 Heart rate 76 /min AVELINA CHAPA [employer] MAKER-MATERIAL EXP[employer]ER [facility] 06-26-2021 20:02-0500 Mean blood pressure 111 mm[Hg] AVELINA CHAPA [employer] MAKER-MATERIAL EXPEDITER [facility] 06-26-2021 20:02-0500 Reason For Taking VItal Signs AVELINA CHAPA [employer] MAKER-MATERIAL EXP[employer]ER [facility] 06-26-2021 20:02-0500 Respiratory rate 18 /min AVELINA CHAPA [employer] MAKER-MATERIAL EXP[employer]ER [facility] 06-26-2021 20:02-0500 Systolic blood pressure 145 mm[Hg] AVELINA CHAPA [employer] MAKER-MATERIAL EXP[employer]ER [facility] 06-26-2021 04:27-0500 Heart rate 71 /min AVELINA FOITH [employer]KER-MATERIAL EXP[employer]ER [facility] 06-25-2021 19:51-0500 Heart rate 70 /min AVELINA FOITH [employer]-MATERIAL EXP[employer]ER [facility] 06-24-2021 19:36-0500 Body height 177 cm AVELINA FOITH [employer]-MATERIAL EXP[employer]ER [facility] 06-24-2021 19:36-0500 Body weight 130 kg AVELINANIMO BYERSITH [employer]KER-MATERIAL EXPEDITER 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 06-24-2021 19:31-0500 Heart rate 82 /min AVELINANIMO BYERSITH [employer]KER-MATERIAL EXPEDITER [facility] 02-17-2021 10:52-0400 Body height 177.8 cm Opal Medina Work Phone: [facility] Work Phone: 02-17-2021 10:52-0400 Body mass index (BMI) [Ratio] 42.47 kg/m2 Opal Medina Work Phone: [facility] Work Phone: 02-17-2021 10:52-0400 Body surface area Derived from formula 2.47 m2 Opal Medina Work Phone: [facility] Work Phone: 02-17-2021 10:52-0400 Body weight 134.27 kg Opal Medina [facility]: [facility] Work Phone: 02-17-2021 10:52-0400 Diastolic blood pressure 79 mm[Hg] Opal Medina Work Phone: [facility] Work Phone: 02-17-2021 10:52-0400 Heart rate 71 /min Opal Medina Work Phone: [facility] Work Phone: 02-17-2021 10:52-0400 Respiratory rate 18 /min Opal Medina [facility]: [facility] Work Phone: 02-17-2021 10:52-0400 Systolic blood pressure 119 mm[Hg] Opal Medina Work Phone: [facility] Work Phone: 09-21-2019 16:55-0400 BMI (Body Mass Index) 43.59 kg/m2 Opal Medina [facility] Work Phone: 09-21-2019 16:55-0400 Body weight 137.8 kg Opal Medina [facility] Work Phone: 09-21-2019 16:55-0400 BP Diastolic 90 mm[Hg] Opal Adam [facility] Work Phone: 09-21-2019 16:55-0400 BP Systolic 130 mm[Hg] Opal Wongon [facility] Work Phone: 09-21-2019 16:55-0400 BSA (Body Surface Area) 2.49 m2 Opal Wongon [facility] Work Phone: 09-21-2019 16:55-0400 Pulse (Heart Rate) 84 /min Opal Medina [facility] Work Phone: 05-22-2019 11:08-0500 BMI (Body Mass Index) 42.36 kg/m2 Opal Medina [facility] Work Phone: 05-22-2019 11:08-0500 Body weight 133.93 kg Opal Medina [facility] Work Phone: 05-22-2019 11:08-0500 BP Diastolic 80 mm[Hg] Opal Medina [facility] Work Phone: 05-22-2019 11:08-0500 BP Systolic 130 mm[Hg] Opal Medina [facility] Work Phone: 05-22-2019 11:08-0500 BSA (Body Surface Area) 2.46 m2 Opal Medina [facility] Work Phone: 05-22-2019 11:08-0500 Pulse (Heart Rate) 88 /min Opal Medina [facility] Work Phone: 05-08-2019 15:25-0500 BMI [...] Date Encounter Type Care Provider Facility Start: 12-09-2024 End: 12-09-2024 Emergency department patient visit Dr. Pamela Hernandez MD Work Phone: -Emergency Department Work Phone: Start: 12-02-2024 End: 12-02-[address] Pamela Hernandez MD Work Phone: -[facility] Start: 12-02-2024 End: 12-02-[address] Pamela Hernandez MD -[facility] Start: 12-02-2024 End: 12-02-2024 ambulatory Pamela Hernandez Facility:[facility] Start: 11-30-2024 End: 11-30-[address] Pamela Hernandez MD -[facility] Work Phone: Start: 11-30-2024 End: 11-30-2024 ambulatory Pamela Hernandez [facility] Start: 02-28-2024 End: 02-28-2024 [...] encounter procedure Opal Medina MD Work Phone: [facility] Work Phone: Start: 02-28-2024 End: 02-28-2024 ambulatory [facility] Start: 02-28-2024 End: 02-28-2024 Encounter for general adult medical examination without abnormal findings [facility] Start: 11-01-2023 End: 11-01-2023 Office [...] nicotine-induced disorder Start: 10-29-2023 End: 10-29-2023 ambulatory [facility] Start: 09-23-2023 End: 09-23-2023 Subsequent hospital visit by physician Tariq Zehng [facility] Comment on above: Vasovagal syncope; Syncope and collapse Start: 09-23-2023 End: 09-23-2023 ambulatory [facility] Start: 09-04-2023 End: 09-04-2023 Subsequent hospital visit by physician Nancy [address] [facility] Comment on above: Vasovagal syncope Start: 09-04-2023 End: 09-04-2023 ambulatory [facility] Start: 08-26-2023 End: 08-26-2023 ambulatory [facility] Start: 08-14-2023 End: 08-14-2023 Subsequent hospital visit by physician Med Echo/Stress [facility] Comment on above: Vasovagal syncope Start: 08-14-2023 End: 08-14-2023 ambulatory [facility] Start: 07-31-2023 End: 07-31-2023 Office outpatient visit [...] Chronic obstructive pulmonary disease, unspecified COPD type (CMS/HCC); Hypercholesterolemia; Chronic midline low back pain without sciatica; RLS (restless legs syndrome); Primary hypertension; Acute deep vein thrombosis (DVT) of proximal vein of left lower extremity (CMS/HCC); Current moderate episode of major depressive disorder without prior episode (CMS/HCC) Start: 07-01-2023 End: 07-01-2023 ambulatory [facility] Start: 07-01-2023 End: 07-01-2023 Encounter for general adult medical examination without abnormal findings [facility] Start: 01-26-2023 End: 01-26-2023 Emergency department patient visit DR SADIA COLEMAN MD Facility:[facility] Start: 01-26-2023 End: 01-26-2023 Emergency department patient visit DR SADIA COLEMAN MD [facility] Start: 01-15-2023 End: 01-16-2023 ambulatory BECK PECK APRN-MATERIAL EXPEDITER Facility:[facility] Start: 01-15-2023 End: 01-16-[address] GRICELDA OLIVER MD [facility] Start: 01-07-2023 End: 01-08-[address] OPAL MEDINA MD Facility:[facility] Start: 01-07-2023 End: 01-07-[address] GRICELDA OLIVER MD [facility] Start: 12-24-2022 End: 12-24-2022 Office outpatient visit [...] examination done Opal Medina MD Work Phone: [facility] Work Phone: Start: 12-17-2022 End: 12-18-[address] OPAL MEDINA MD Facility:B Start: 12-17-2022 End: 12-17-[address] GRICELDA OLIVER MD [facility] Start: 12-09-[address] OPAL MEDINA MD [...] Start: 07-10-2022 End: 07-11-2022 ambulatory RAINE GARCIA APRN-MATERIAL EXPEDITER Facility:B Start: 07-10-2022 End: 07-11-[address] GRICELDA OLIVER MD [facility] Start: 07-05-2022 Office outpatient vi sit 25 minutes Opal Medina Work Phone: [facility] Work Phone: Start: 07-05-[address] Opal Medina Facility:[id number] Start: 07-02-2022 End: 07-03-[address] OPAL MEDINA MD Facility:B Start: 07-02-2022 End: 07-03-[address] OPAL MEDINA MD Facility:B Start: 07-02-2022 End: 07-02-[address] GRICELDA OLIVER MD [facility] Start: 06-13-2022 Patient encounter procedure Opal Medina Work Phone: [facility] Work Phone: Start: 05-29-2022 End: 05-30-[address] OPAL MEDINA MD Facility:B Start: 05-25-[address] Opal Medina Facility:[id number] Start: 05-25-2022 Office outpatient vi sit 25 minutes Opal Medina Work Phone: [email or web address] Work Phone: Start: 05-25-[address] Opal Medina Facility:[id number] Start: 05-20-2022 Chart Update Opal Medina Work Phone: [facility] Work Phone: Start: 05-07-2022 End: 05-08-[address] OPAL MEDINA MD Facility:B Start: 05-07-2022 End: 05-07-2022 Patient encounter procedure ELISEO BRAXTON DO [facility] Start: 05-01-2022 AUDIT Opal Medina Work Phone: [email or web address] Work Phone: Start: 04-30-[address] OPAL MEDINA MD Fa cility:B Start: 04-27-2022 End: 04-28-[address] OPAL MEDINA MD Facility:B Start: 03-30-2022 FUV, Provider: Opal Medina, Status: Pen, Time: 10:00 AM Opal Medina Work Phone: [facility] Work Phone: Start: 03-30-2022 Office outpatient vi sit 25 minutes Opal Medina Work Phone: [facility] Work Phone: Start: 03-30-[address] Opal Rubalcava [facility] Facility:[id number] Start: 03-28-2022 AUDIT Opal Medina Work Phone: [facility] Work Phone: Start: 01-18-[address] Gricelda Guardado Facility:[id number] Start: 01-18-2022 Office outpatient vi sit 25 minutes Opal Medina Work Phone: HF-Jhzaxxzovgqg-Gvyqr n 210 Work Phone: Start: 12-07-2021 Office outpatient vi sit 25 minutes Opal Medina Work Phone: [facility] Work Phone: Start: 12-07-[address] Opal Rubalcava [facility] Facility:[id number] Start: 11-08-2021 Chart Update Opal Medina Work Phone: PE-Vvwkievldhgd-Tgfhb [place] [address] DO Work Phone: Start: 10-13-2021 Patient encounter procedure Opal Medina Work Phone: QH-Anofqoolrzje-Wlnhw a Work Phone: Start: 10-13-[address] Gricelda Guardado Facility:[id number] Start: 10-11-[address] pOal Rubalcava [facility] Facility:[id number] Start: 07-14-2021 Patient encounter procedure Opal Medina Work Phone: NA-Gwenmvhejmdf-Kktqn n 210 Work Phone: Start: 07-14-[address] Opal Medina Facility:[id number] Start: 06-30-2021 Office outpatient vi sit 25 minutes Opal Medina Work Phone: FT-Haquazayyj-Pxini [id number] Work Phone: Start: 06-24-2021 End: 06-27-2021 Observation [facility] Start: 04-14-2021 Patient encounter procedure Opal Medina Work Phone: SO-Xtbancvcxbvl-Wfikf a Work Phone: Start: 02-17-2021 Office outpatient vi sit 25 minutes Opal Medina Work Phone: [facility] Work Phone: Start: 01-13-2021 Patient encounter procedure Opal Medina Work Phone: XY-Achtcdjiwbij-Qxaow a Work Phone: Start: 09-21-2019 Patient encounter [...] End: 09-08-2018 Patient encounter procedure CURT SOUSA Facility:[facility] Start: 07-21-2018 Patient encounter procedure Opal Medina [facility] Work Phone: Start: 07-05-2018 End: 07-05-2018 Patient encounter procedure OPAL MEDINA [facility] Start: 06-09-2018 Patient encounter procedure Opal Medina [facility] Work Phone: Start: 04-19-2018 Patient encounter procedure Opal Medina [facility] Work Phone: Start: 01-31-2018 Patient encounter procedure Opal Medina [facility] Work Phone: Start: 09-20-2017 Patient encounter procedure Opal Medina [facility] Work Phone: Start: 09-16-2017 Patient encounter procedure Opal Medina [facility] Work Phone: Start: 09-12-2017 Patient encounter [...] bacterial bl ood aerobic w/id isolates [place] [place] Start: 09-24-2019 Culture bacterial quanttative colony count urine [place] [place] Start: 09-24-2019 Urnls dip stick/tabl et rgnt auto w/o microscopy Opal [place] Start: 09-24-2019 Xray Chest 2 View PA + Lateral [place] [place] Start: 09-23-2019 C-reactive protein h igh sensitivity [place] [place] Start: 09-21-2019 Blood count complete auto&auto difrntl wbc Opal Medina Start: 09-08-[address] endoscopic px scr [facility]sc Curt Sousa Start: 04-29-2019 Colsc flx w/rmvl of tumor polyp lesion snare tq Curt Sousa Excision of melanoma AVELINA CHAPA [employer] MAKER-MATERIAL EXPEDITER Hernia repair Opal Medina Comment on above: bilat repaired after ; History of hernia repair SETH VIEYRA SAMMI [employer] MAKER-MATERIAL EXPEDITER Comment on above: occured as Plan of Treatment Date Care Activity Detail Author Start: 08-08-2030 DTaP/Tdap/Td Vaccine s (2 - Td or Tdap) DTaP/Tdap/Td Vaccines (2 - Td or Tdap) [facility] Start: 02-07-2030 Screening for malignant neoplasm of colon [facility] Start: 10-28-2028 Lipid panel Lipid Panel [facility] Start: 07-01-2028 Lipid panel Lipid Panel [facility] Start: 05-18-2027 Lipid panel Lipid Panel [facility] Start: 12-18-2024 ambulatory Ambulatory Facility:[facility] Start: 12-09-2024 [facility] Start: 07-03-2024 End: 07-03-2024 Patient encounter procedure 07/03/2024 10:00 AM EST Office Visit [facility] [address] [phone] Opal Medina MD [address] [facility], [address] [address] [facility] Start: 05-18-2024 End: 08-28-2024 25-hydroxyvitamin D3 [Mass/volume] in Serum or Plasma Vitamin D 25-Hydroxy,Total (for eval of Vitamin D levels) Lab Routine Annual physical exam Expected: 05/18/2024, Expires: 08/28/2024 [facility] Work Phone: Comment on above: Expected: 05/18/2024 , Expires: 08/28/2024 Start: 05-18-2024 End: 02-27-2025 CBC panel - Blood by Automated count CBC Lab Routine Annual physical exam Expected: 05/18/2024, Expires: 02/27/2025 [facility] Service Area Work Phone: Comment on above: Expected: 05/18/2024 , Expires: 02/27/2025 Start: 05-18-2024 End: 08-28-2024 Comprehensive metabolic 2000 panel - Serum or Plasma Comprehensive metabolic panel Lab Routine Annual physical exam Expected: 05/18/2024, Expires: 08/28/2024 [facility] Work Phone: Comment on above: Expected: 05/18/2024 , Expires: 08/28/2024 Start: 05-18-2024 End: 08-28-2024 Lipid 1996 panel - Serum or Plasma Lipid panel Lab Routine Annual physical exam Expected: 05/18/2024, Expires: 08/28/2024 [facility] Work Phone: Comment on above: Expected: 05/18/2024 , Expires: 08/28/2024 Start: 05-18-2024 End: 08-28-2024 Tsh With Reflex To Free T4 If Abnormal Tsh With Reflex To Free T4 If Abnormal Lab Routine Annual physical exam Expected: 05/18/2024, Expires: 08/28/2024 [facility] Work Phone: Comment on above: Expected: 05/18/2024 , Expires: 08/28/2024 Start: 02-28-2024 End: 02-28-2024 Patient encounter procedure 02/28/2024 10:00 AM EDT Office Visit [facility] [address] [phone] Opal Medina MD [address] [facility], [facility] [address] [place] [address] [facility] Start: 01-12-2024 COVID-19 Vaccine ( season) COVID-19 Vaccine ( season) [facility] Start: 11-01-2023 End: 11-01-2023 Patient encounter procedure 11/01/2023 10:00 AM EDT Office Visit [facility] [address] [place] [phone] Opal Medina MD [address] [facility], [place] [address] [place] [address] [facility] Start: 10-03-2023 End: 07-05-2024 Hepatic function 2000 panel - Serum or Plasma Hepatic function panel Lab Routine Hypercholesterolemia Expected: 10/03/2023 (Approximate), Expires: 07/05/2024 [facility] Work Phone: Comment on above: Expected: 10/03/2023 (Approximate), Expires: 07/05/2024 Start: 10-03-2023 End: 07-05-2024 Lipid 1996 panel - Serum or Plasma Lipid panel Lab Routine Hypercholesterolemia Expected: 10/03/2023 (Approximate), Expires: 07/05/2024 [facility] Service Area Work Phone: Comment on above: Expected: 10/03/2023 (Approximate), Expires: 07/05/2024 Start: 09-23-2023 End: 09-23-2023 Patient encounter procedure 09/23/2023 11:00 AM EDT Appointment [facility] [address] [place] [phone] [facility] Start: 08-14-2023 End: 08-14-2023 Patient encounter procedure 08/14/2023 2:00 PM EDT Appointment [facility] [address] [place] [address] [facility] Start: 07-31-2023 End: 07-30-2025 US Heart Transthoracic Transthoracic Echo Limited Echocardiography Routine Vasovagal syncope Expected: 07/31/2023 (Approximate), Expires: 07/30/2025 [facility] Service Area Work Phone: Comment on above: Expected: 07/31/2023 (Approximate), Expires: 07/30/2025 Start: 03-24-2023 Pneumococcal Vaccine : Pediatrics (0 to 5 Years) and At-Risk Patients (6 to 64 Years) (2 - PCV) Pneumococcal Vaccine: Pediatrics (0 to 5 Years) and At-Risk Patients (6 to 64 Years) (2 - PCV) [facility] Start: 02-26-2023 End: 02-26-2023 Patient encounter procedure 02/26/2023 11:30 AM EDT Office Visit [facility] [address] [facility] [address] [place] [phone] Opal Medina MD [address] [facility], [facility] [address] [place], [place] [phone] [facility] Start: 01-11-2023 COVID-19 Vaccine ( season) COVID-19 Vaccine ( season) [facility] Start: 01-11-2023 COVID-19 Vaccine () COVID-19 Vaccine () [facility] Start: 01-11-2023 Influenza vaccination Influenza Vacc ine (#1) [facility] Start: 11-26-2022 End: 11-26-2022 Patient encounter procedure 11/26/2022 11:30 AM EDT Office Visit [facility] [address] [place] [phone] Opal Medina MD [address] [facility], [facility] [address] [place], [place] [phone] [facility] Start: 10-30-2022 End: 10-30-2022 Patient encounter procedure 10/30/2022 11:30 AM EDT Office Visit [facility] [address] [address] [place] [phone] Opal Medina MD [address] [facility], [facility] [address] [place], [place] [phone] [facility] Start: 08-15-2022 EPV, Provider: Opal Medina, Status: Pen, Time: 10:00 AM EPV, Provider: Opal Meidna, Status: Pen, Time: 10:00 AM [facility] Work [facility]: Start: 05-25-2022 EPV, Provider: Opal Medina, Status: Pen, Time: 10:00 AM EPV, Provider: Opal Medina, Status: Pen, Time: 10:00 AM [facility] Work [facility]: Start: 05-19-2022 COVID-19 Vaccine (5 - Booster for Moderna series) COVID-19 Vaccine (5 - Booster for Moderna series) [facility] Start: 04-27-2022 INJECTION, Provider: Gricelda Guardado, Status: Pen, Time: 11:30 AM INJECTION, Provider: Gricelda Guardado, Status: Pen, Time: 11:30 AM UB-Pbilmyxsmetj-S [facility] 210 Work Phone: Start: 2022 RSV High Risk: (Elderly (60+) or Population) (1 - Risk 60-74 years 1-dose series) RSV High Risk: (Elderly (60+) or Population) (1 - Risk 60-74 years 1-dose series) [facility] Start: 2022 RSV patient s and/or patients aged 60+ years (1 - 1-dose 60+ series) RSV patients and/or patients aged 60+ years (1 - 1-dose 60+ series) [facility] Start: 03-30-2022 FUV, Provider: Opal Medina, Status: Pen, Time: 10:00 AM FUV, Provider: Opal Medina, Status: Pen, Time: 10:00 AM [facility] Work Phone: Start: 01-18-2022 INJECTION, Provider: Gricelda Guardado, Status: Pen, Time: 4:30 PM INJECTION, Provider: Gricelda Guardado, Status: Pen, Time: 4:30 PM MM-Mmrxsadyylsh-X [place] [address] DO Work Phone: Start: 01-18-2022 INJECTION, Provider: Yuli Sparrow, Status: Pen, Time: 4:15 PM INJECTION, Provider: Yuli Sparrow, Status: Pen, Time: 4:15 PM [facility] Work Phone: Start: 01-12-2022 INJECTION, Provider: Gricelda Guardado, Status: Pen, Time: 10:00 AM INJECTION, Provider: Gricelda Guardado, Status: Pen, Time: 10:00 AM XA-Rzyvhzyijnft-E radha Work Phone: Start: 10-13-2021 INJECTION, Provider: Gricelda Guardado, Status: Pen, Time: 9:50 AM INJECTION, Provider: Gricelda Guardado, Status: Pen, Time: 9:50 AM RP-Bqrrontlnhsw-L [place] 210 Work Phone: Start: 10-11-2021 EPV, Provider: Opal Medina, Status: Pen, Time: 10:00 AM EPV, Provider: Opal Medina, Status: Pen, Time: 10:00 AM TB-Qkpytirfuvos-E isman 210 Work Phone: Start: 07-14-2021 EPV, Provider: Opal Medina, Status: Pen, Time: 10:15 AM EPV, Provider: Opal Medina, Status: Pen, Time: 10:15 [place] [address] Work Phone: Start: 07-14-2021 INJECTION, Provider: Gricelda Guardado, Status: Pen, Time: 9:40 AM INJECTION, Provider: Gricelda Guardado, Status: Pen, Time: 9:40 AM PM-Wxehiwmfefnv-W radha Work Phone: Start: 06-30-2021 Screening for malignant neoplasm of colon FIT-DNA (Cologuard) [facility] Start: 06-16-2021 FUV, Provider: Opal Medina, Status: Pen, Time: 10:30 AM FUV, Provider: Opal Medina, Status: Pen, Time: 10:30 AM -[facility] Work Phone: Start: 04-14-2021 FUV, Provider: Gricelda Guardado, Status: Pen, Time: 9:50 AM FUV, Provider: Gricelda Guardado, Status: Pen, Time: 9:50 AM WN-Lgyumblgwask-T radha Work Phone: Start: 02-17-2021 FUV, Provider: Opal Medina, Status: Pen, Time: 10:30 AM FUV, Provider: Opal Medina, Status: Pen, Time: 10:30 AM AD-Rfofiroxhhwj-P radha Work Phone: Start: 09-24-2019 Xray Chest 2 V iew PA + Lateral [facility] Work Phone: Start: 2012 Screening for malignant neoplasm of lung Lung Cancer Screening [facility] Start: 07-16-1999 Hepatitis B Vaccines (3 of 3 - 19+ 3-dose series) Hepatitis B Vaccines (3 of 3 - 19+ 3-dose series) [facility] Start: 07-13-1999 Hepatitis A Vaccines (2 of 2 - Risk 2-dose series) Hepatitis A Vaccines (2 of 2 - Risk 2-dose series) [facility] Start: 07-13-1999 Hepatitis B Vaccines (3 of 3 - 19+ 3-dose series) Hepatitis B Vaccines (3 of 3 - 19+ 3-dose series) [facility] Start: 1980 Diabetes mellitus screening Diabetes Screening [facility] Start: 1980 Hepatitis C screening Hepatitis C Sc reening [facility] Start: 1963 MMR Vaccines (1 of 1 - Standard series) MMR Vaccines (1 of 1 - Standard series) [facility] Start: 1962 Examination of skin Derm Melanoma Sk in Check [facility] Start: 1962 HIV screening HIV Screening [facility] Start: 1962 Screening for malignant neoplasm of colon [facility] Start: 1962 Yearly Adult Physical Yearly Adult P hysical [facility] Abdominal aortic aneurysm screening [facility] CT Chest [facility] Patient Education ED Hydrocele, Type Not Specified [facility] Work Phone: Tobacco use cessatio n education [facility] US.doppler Lower extremity vein [facility] Work Phone: NEGATED: Highlighted row has been ruled out! Planned Goals not documented [facility] Work Phone: Immunizations Immunization Date Immunization Notes Care Provider Fa [facility] 02-28-2024 influenza, seasonal, injectable, preservative free Opal Medina MD Work Phone: [facility] Work Phone: 03-01-2023 influenza, injectabl e, quadrivalent, preservative free Opal Medina MD Work Phone: [facility] 03-24-2022 influenza virus vacc ine, unspecified formulation DR GRICELDA OLIVER MD [facility] 03-24-2022 influenza, injectabl e, quadrivalent, preservative free Opal Medina Work Phone: [facility] 03-24-2022 influenza, seasonal, injectable Opal Medina Work Phone: [facility] Work Phone: Comment on above: Series: 03-24-2022 Moderna COVID-19 Biv al Booster 50 MCG/0.5ML Intramuscular Suspension Opal Medina Work Phone: [facility] Comment on above: Series: 03-24-2022 Pfizer COVID-19 vacc ine, bivalent, age 5y-11y (10 mcg/0.2 mL) Opal Medina MD Work Phone: [facility] Work Phone: 03-24-2022 pneumococcal 20-josé miguel nt conjugate vaccine DR GRICELDA OLIVER MD [facility] 11-12-2022 pneumococcal polysaccharide vaccine, 23 valent Opal Medina Work Phone: [facility] Work Phone: Comment on above: Series: 03-24-2022 Prevnar 20 0.5 ML Intramuscular Suspension Prefilled Syringe Opal Medina Work Phone: [facility] Work Phone: 03-24-2022 SARS-CoV-2 (CV19)mRNA-[address] GRICELDA OLIVER MD [facility] 03-24-2022 SARSCoV2 (CV19)mRNA-1273(6y+ bival miguel DR GRICELDA OLIVER MD [facility] 09-24-2021 Moderna COVID-19 Vac cine 100 MCG/0.5ML Intramuscular Suspension Opal Medina Work Phone: [facility] 09-24-2021 zoster vaccine recombinant Opal Medina Work Phone: [facility] 05-03-2021 Moderna COVID-19 Vac cine 100 MCG/0.5ML Intramuscular Suspension Opal Medina Work Phone: [facility] 05-03-2021 zoster vaccine recombinant Opal Medina Work Phone: [facility] 02-17-2021 influenza virus vacc ine, unspecified formulation DR GRICELDA OLIVER MD [facility] 02-17-2021 influenza, injectabl e, quadrivalent, contains preservative; Translations: [Flulaval Quadrivalent Intramuscular Suspension] Opal Medina Work Phone: [facility] Work Phone: Comment on above: Series: 02-17-2021 influenza, injectabl e, quadrivalent, preservative free Dr. Pamela Hernandez MD Work Phone: [facility] 02-17-2021 influenza, seasonal, injectable Opal Medina MD Work Phone: [facility] Work Phone: 09-15-2020 Moderna COVID-19 Vac cine 100 MCG/0.5ML Intramuscular Suspension Opal M [place] Work Phone: [facility] Comment on above: Result Comment: 2022: [id number] 08-10-2020 Moderna COVID-19 Vac cine 100 MCG/0.5ML Intramuscular Suspension Opal Medina Work Phone: [facility] Comment on above: Result Comment: 2022: TPV50 08-08-2020 tetanus toxoid, redu elsa diphtheria toxoid, and acellular pertussis vaccine, adsorbed; Translations: [Boostrix (Tdap)] [facility] 01-25-2020 influenza virus vacc ine, unspecified formulation DR GRICELDA OLIVER MD [facility] 01-25-2020 influenza, injectabl e, quadrivalent, preservative free; Translations: [Flulaval Quadrivalent 0.5 ML Intramuscular Suspension Prefilled Syringe] Opal Medina Work Phone: [facility] Comment on above: Series: 01-25-2020 influenza, seasonal, injectable Opal Medina MD Work Phone: [facility] Work Phone: 01-10-2019 influenza virus vacc ine, unspecified formulation DR GRICELDA OLIVER MD [facility] 01-10-2019 influenza, injectabl e, quadrivalent, preservative free Opal Medina Work Phone: [facility] 01-31-2018 influenza, injectabl e, quadrivalent, preservative free; Translations: [Flulaval Quadrivalent 0.5 ML Intramuscular Suspension Prefilled Syringe] Opal Medina [facility] Comment on above: Series: 01-31-2018 influenza virus vacc ine, unspecified formulation DR GRICELDA OLIVER MD [facility] 01-31-2018 influenza, seasonal, injectable Opal Medina MD Work Phone: [facility] Work Phone: 03-10-2017 influenza virus vacc ine, unspecified formulation DR GRIECLDA OLIVER MD [facility] 03-10-2017 influenza, injectabl e, quadrivalent, preservative free Opal M [place] Work Phone: [facility] 02-14-1999 hepatitis B vaccine, adult dosage Opal M Adam Work Phone: [facility] 02-14-1999 influenza virus vacc ine, whole virus Opal M Adam Work Phone: [facility] 02-14-1999 influenza, injectabl e, quadrivalent, preservative free Dr. Pamela Hernandez MD Work Phone: [facility] 01-12-1999 hepatitis A vaccine, pediatric/adolescent dosage, [address] Pamela Hernandez MD Work Phone: [facility] 01-12-1999 hepatitis A vaccine, unspecified formulation Opal M [place] Work Phone: [facility] 01-12-1999 hepatitis B vaccine, adult dosage Opal M [place] Work Phone: [facility] 01-12-1999 hepatitis A and hepatitis B vaccine [facility] 1 [facility] Work Phone: Payers Date Payer Category Payer Unknown [id number] 2024 Self-pay 2023 Managed Care (Private) [facility] [id number] 2023 Unknown 2023 Unknown [id number] 2018 Private Health Insurance [facility] [id number] 2018-Present [address] [place] [address] [id number] 2018 Private Health Insurance [id number] 1962 Unknown [id number] 2.16.840.1.363975.3.579.2. 662 1962 Unknown [id number] 2.16.840.1.886108.3.579.2. 355 1962 Unknown [id number] 2.16.840.1.023117.3.579.2. 1068 1962 Unknown [id number] 2.16.840.1.220118.3.579.2. 356 1962 Unknown [id number] 2.16.840.1.141155.3.579.2. 356 1962 Unknown [id number] 2.16.840.1.595339.3.579.2. 356 1962 Unknown [id number] 2.16.840.1.743905.3.579.2. 356 1962 Unknown [id number] 2.16.840.1.357597.3.579.2. 356 1962 Unknown [id number] 2.16.840.1.716366.3.579.2. 356 1962 Unknown [id number] 2.16.840.1.388033.3.579.2. 356 1962 Unknown [id number] 2.16.840.1.350505.3.579.2. 356 1962 Unknown [id number] 2.16.840.1.760658.3.579.2. 356 1962 Unknown [id number] 2.16.840.1.635669.3.579.2. 356 1962 Unknown [id number] 2.840.1.997042.3.579.2. 356 1962 Unknown [id number] 2.16.840.1.997736.3.579.2. 356 1962 Unknown [id number] 2.16.840.1.623659.3.579.2. 62 1962 Unknown [id number] 2.16.840.1.352510.3.579.2. 627 1962 Unknown [id number] 2.16840.1.240725.3.579.2. 62 1962 Unknown [id number] 2.16.840.1.916816.3.579.2. 627 1962 Unknown [id number] 2.16.840.1.785238.3.579.2. 627 1962 Unknown [id number] 2.16.840.1.569205.3.579.2. 627 1962 Unknown [id number] 2.16.840.1.467787.3.579.2. 627 1962 Unknown [id number] 2.16.840.1.931647.3.579.2. 627 1962 Unknown [id number] 2.16.840.1.978949.3.579.2. 627 1962 Unknown [id number] 2.16.840.1.684816.3.579.2. 627 1962 Unknown [id number] 2.16.840.1.659832.3.579.2. 627 1962 Unknown [id number] 2.16.840.1.543159.3.579.2. 62 1962 Unknown [id number] 2.16840.1.110877.3.579.2. 62 1962 Unknown [id number] 2.840.1.608429.3.579.2. 62 1962 Unknown [id number]. 124 1960 Unknown [id number] 2.16840.1.392090.3.579.2. 124 1960 Unknown [id number] 2.840.1.688258.3.579.2. 1244 1960 Unknown [id number] 2.840.1.603491.3.579.2. 124 1960 Unknown [id number] 2.16840.1.235708.3.579.2. 124 1960 Unknown [id number] 2.16840.1.413196.3.579.2. 124 1960 Unknown [id number] 2.16840.1.999461.3.579.2. 1244 Private Health Insurance [id number] Unknown [id number] Unknown [id number] 2.16840.1.102972.3.579.2. 462 Unknown [id number] 2.16840.1.084199.3.579.2. 462 Unknown [id number] 2.16.840.1.495262.3.579.2. 462 Unknown [id number] 2.16.840.1.535116.3.579.2. 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 Type: Cigarettes. [facility] Ex-smoker (finding) [facility] Sex Assigned At [facility] Start: 07-10-2022 End: 01-15-2023 Tobacco smoking status Light tobacco smoker (finding) [facility] Start: 07-31-2022 End: 12-09-2024 Tobacco smoking status NHIS Smokes tobacco daily [facility] Start: 05-13-1979 History of tobacco use Cigarette Smoker [facility] Work Phone: Start: 07-31-2022 End: 08-26-2023 Tobacco use and exposure Smokeless tobacco non-user [facility] Work Phone: Start: 07-31-2022 End: 10-30-2022 Alcohol intake Lifetime non-drinker (finding) [facility] Work Phone: Start: 07-31-2022 End: 10-30-2022 Tobacco use panel [facility] Work Phone: Start: 1960 Sex Assigned At Not on file [facility] Work Phone: Start: 07-21-2022 End: 11-01-2023 Exposure to SARS-CoV-2 (event) Not sure [facility] Start: 08-26-2023 Tobacco Comment Smokes around 1/2 pack per week [facility] Work Phone: Start: 02-28-2024 Tobacco Comment Smokes around 1/2 pack per week. Currently smoking 3 cig per week 02/28/24. [facility] Work Phone: Start: 02-18-2024 End: 02-28-2024 Exposure to SARS-CoV-2 (event) Unable to assess [facility] Start: 1960 Sex Assigned At Male [facility] NEGATED: Highlighted row - - [facility] Work Phone: NEGATED: Highlighted rowStart: NINF History of tobacco use Passive smoker [facility] Work Phone: Functional Status Date Assessment Result Facility 01-26-2023 Functional Status ID band on, Call device within reach, Bed in low position, Wheels locked, Upper/Half-Length side-rails up, Phone within reach, Safety level maintained [facility] 01-16-2023 Functional Status Mod I [facility] 01-16-2023 Functional Status Door open, Room check performed [facility] 01-16-2023 Functional Status 3 [facility] 01-16-2023 Functional Status [facility] 01-16-2023 Functional Status [facility] 01-15-2023 Functional Status [facility] 01-15-2023 Functional Status Single level home [facility] 01-15-2023 Functional Status [facility] 01-15-2023 Functional Status Abduction pill ow, ice on [facility] 01-15-2023 Functional Status [facility] 01-15-2023 Functional Status Maintained, More than [address] [facility] 07-11-2022 Functional Status Door open, Room check performed [facility] 07-11-2022 Functional Status Suzy monzon [facility] 07-11-2022 Functional Status [facility] 07-11-2022 Functional Status 3 [facility] 07-11-2022 Functional Status [facility] 07-10-2022 Functional Status Demonstrates C orrect Call Light Use Yes [facility] 07-10-2022 Functional Status Ambulating in room, Up to bathroom [facility] 07-10-2022 Functional Status Multilevel home [facility] 07-10-2022 Functional Status ice on, tension pillow in place [facility] 07-10-2022 [facility] Status Maintained Suzy Waite [facility] 07-02-2022 Functional Status Sensory Deficits None A [facility] NEGATED: Highlighted row Functional performance Functional status health issues are not documented Disease [facility] Work Phone: Mental Status Date Assessment Result Facility 01-26-2023 Mental Status Oriented x 4 [facility] 01-16-2023 Mental Status Oriented x 4 [facility] 01-15-2023 [facility]23 [facility] 07-[facility]22 Mental Status Oriented x 4 [facility] 07-11-2022 Mental Status [facility] NEGATED: Highlighted row Cognitive function [Interpretation] Cognitive status health issues are not documented Disease [facility] Work Phone: Clinical Notes 10-13-2020 to 12-09-2024 Note Date & Type Note Facility 12-09-2024 Discharge summary [facility] 12-09-2024 Radiology Diagnostic study note [facility] Imaging Services [address] [place], [place] [address] Testicular with Arterial Flow MR#: [id number] Acct: [id number] Name: ILDEFONSO ROCHA Rep #: [id number] : 1960 M 64 From: Francisco Melo MD PCP: Dr. Pamela Hernandez MD Status: REG ER Study:Testicular with Arterial Flow Date of E xam: 12/09/24 Exam# [id number] Ordering Dr: Augusto Davis MD PROCEDURE: TESTICULAR [...] right scrotal sac as described. Reading Location: [facility] CC: Dr. Augusto Davis MD; Dr. Pamela Hernandez MD ~ Clip Coater: Signed [facility] 11-30-2024 Evaluation note Diagnosis Onset Date Resolution [...] d deficiency noneactive November 30, 2024 11:00am [facility] Work Phone: 1(125) 507-157110-18-2024 Evaluation + Plan note* Assessment & Plan Note - Nika Almanza - 02/28/2024 10:54 AM EDTAssociated Problem(s): Chronic obstructive pulmonary disease (Multi) Patient's COPD is managed currently on albuterol PRN. [facility] Work Phone: 1(275) 442-288410-18-2024 Miscellaneous Notes* Assessment & Plan Note - [...] month follow up appointment. documented in this [facility] Work Phone: 1(944) 585-424610-18-2024 Evaluation + Plan note* Assessment & Plan [...] Ortho for medication refills and pain management. [facility] Work Phone: [phone] 107-679310-18-2024 Evaluation + Plan note* Assessment & Plan Note - Nika Almanza - 02/28/2024 10:50 AM EDTAssociated Problem(s): Vitamin D deficiency Patient's vitamin D deficiency is managed on cholecalciferol. [facility] Work Phone: 1(268) 223-456910-18-2024 Evaluation + Plan note* Assessment & Plan Note - Nika Almanza - 02/28/2024 10:50 AM EDTAssociated Problem(s): Vasovagal syncope Patient reports episodes of dizziness at baseline during excessive bouts of coughing secondary to his COPD. He has synopsized in the past (years ago), but not recently (in the last few weeks). [facility] Work Phone: [phone] Evaluation + Plan note* Assessment & Plan Note - Nika Almanza - 02/28/2024 10:48 AM EDTAssociated Problem(s): Hyperlipidemia Patient's hyperlipidemia is managed on atorvastatin. Patient's last fasting blood work was collected in 11/03; all values WNL. Patient was instructed to get annual fasting blood work in 07/07 before next 4 month follow up appointment. [facility] Work Phone: [phone] 976-545410-18-2024 History of Present illness Narrative* Opal Medina [...] Audit Reviewed by Nika Almanza (Student Physician Feeder Operator) on 02/28/24 at 1003 Medication Order Taking? Sig Documenting Provider Last Dose Status acetaminophen (Tylenol) 500 mg tablet [id number] 1 tablet (500 mg). Historical Provider, Active albuterol 90 mcg/actuation inhaler [id number] Inhale 2 puffs every 4 hours if needed for wheezing. Opal Medina MD Active apixaban (Eliquis) 5 mg tablet [id number] Take 1 tablet (5 mg) by mouth 2 times a day. Opal Medina MD Active atorvastatin (Lipitor) 20 mg tablet [id number] Take 1 tablet (20 mg) by mouth once daily. Opal Medina MD Active cholecalciferol (Vitamin D-3) 50 mcg (2,000 unit) capsule [id number] Take 1 capsule (50 mcg) by mouthonce daily. Historical Provider, Active cyclobenzaprine (Flexeril) 5 mg tablet [id number] Take 1 tablet (5 mg) by mouth as needed at bedtimefor muscle spasms (for Restless leg). Opal Medina MD Active Discontinued 02/28/24 1001 hydroCHLOROthiazide (HYDRODiuril) 50 mg tablet [id number] Take 1 tablet (50 mg) by mouth once daily.Opal Medina MD Active multivitamin capsule [id number] once daily. Historical Provider, Active tgrabsea-ukbvizbnl-WQ (Cortisporin) otic solution [id number] Administer 2 drops into the left ear 4 times a day. Opal Medina MD Active sertraline (Zoloft) 100 mg tablet [id number] Take 1 daily Opal Medina MD Active [...] you. Opal Medina MD documented [facility] Work Phone: [phone] Instructions* Patient Instructions* Opal Medina MD - 02/28/2024 10:00 AM EDT Follow up Dr Medina in 4 months for HTN etc 30 min Please get fasting labs before next appointment All Back meds should come from ortho. documented in [facility] Work Phone: [phone] Evaluation + Plan note* Assessment & Plan [...] about smoking cessation for approximately 7 minutes. [facility] Work Phone: [phone]) 551-575906-21-2024 Miscellaneous Notes* Assessment & Plan Note - [...] getting injections through Dr. Meléndez in the [facility] for this and it is finally [...] refill on his hydrochlorothiazide documented in this [facility] Work Phone: [phone] Evaluation + Plan note* Assessment & Plan Note - Opal Medina MD - 11/01/2023 11:03 AM EDTAssociated Problem(s): Acute right-sided low back pain with right-sided sciatica Patient is currently getting injections through Dr. Meléndez in the [facility] for this and it is finally starting to work. [facility] Work Phone: [phone] Evaluation + Plan note* Assessment & Plan [...] long as he stays on the medication. [facility] Work Phone: [phone] Evaluation + Plan note* Assessment & Plan Note - Opal Medina MD - 11/01/2023 11:02 AM EDTAssociated Problem(s): Acute deep vein thrombosis (DVT) of left lower extremity (Multi) Patient has a chronic DVT now and remains on Eliquis. He has no bruises or other problems currentlyand is tolerating the medication [facility] Work Phone: [phone] Evaluation + Plan note* Assessment & Plan [...] syncope he is to notify us immediately [facility] Work Phone: [phone] Evaluation + Plan note* Assessment & Plan Note - Opal Medina MD - 11/01/2023 11:01 AM EDTAssociated Problem(s): Hypertension Blood pressure stable and well-controlled no changes were needed today. He was given a refill on his hydrochlorothiazide [facility] Work Phone: [phone] History of Present illness Narrative* Opal Medina [...] continues to see Dr. Meléndez at in [facility] for back injections which are finally [...] Dose Status acetaminophen (Tylenol) 500 mg tablet [id number] 1 tablet (500 mg). Historical ProviderMD Active albuterol 90 mcg/actuation inhaler [id number] Inhale 2 puffs every 4 hours if needed for wheezing. Opal Medina MD Active apixaban (Eliquis) 5 mg tablet [id number] Take 1 tablet (5 mg) by mouth 2 times a day. Opal Medina MD Active atorvastatin (Lipitor) 20 mg tablet [id number] Take 1 tablet (20 mg) by mouth once daily. Opal Medina MD Active cholecalciferol (Vitamin D-3) 50 mcg (2,000 unit) capsule [id number] No Take 1 capsule (50 mcg) by mouth once daily. Historical ProviderMD Not Taking Active cyclobenzaprine (Flexeril) 5 mg tablet [id number] Take 1 tablet (5 mg) by mouth as needed at bedtimefor muscle spasms (for Restless leg). Opal Medina MD Active glucose 4 gram chewable tablet [id number] Chew if needed for low blood sugar - see comments. Historical ProviderMD Active hydroCHLOROthiazide (HYDRODiuril) 50 mg tablet [id number] Take 1 tablet (50 mg) by mouth once daily. Opal Medina MD Active multivitamin capsule [id number] No once daily. Historical ProviderMD Taking Active yxuxwkhb-rrdceuexn-OH (Cortisporin) otic solution [id number] Administer 2 drops into the left ear 4 times a day. Opal Medina MD Active sertraline (Zoloft) 100 mg tablet [id number] Take 1 daily Opal Medina MD Active [...] getting injections through Dr. Meléndez in the [facility] for this and it is finally [...] you. Opal Medina MD documented in [facility] Work Phone: [phone] Instructions* Patient Instructions* Opal Medina MD - 11/01/2023 10:00 AM EDT Please call [phone] to help stop smoking Follow up Dr Medina in 4 months for HTN, etc 30 min appointment documented in this [facility]Pro[facility] Work Phone: [phone] Evaluation + Plan note* Assessment & Plan [...] unless the patient has a third episode. [facility] Work Phone: [phone] 371-467103-20-2024 Miscellaneous Notes* Assessment & Plan Note - [...] has a third episode. [facility] Work Phone: [phone] 106-564403-20-2024 History of Present illness Narrative* Opal Medina MD - 07/31/2023 3:30 PM EDT Subjective Patient ID: Ildefonso Rocha is a 63 y.o. male who presents for dizziness and general health management. Patient is here today because of a syncopal episode which occurred this past Saturday. He was walking to congregational when he suddenly became lightheaded elevated and [...] Dose Status acetaminophen (Tylenol) 500 mg tablet [id number] 1 tablet (500 mg). Historical Provider, Active albuterol 90 mcg/actuation inhaler [id number] Inhale 2 puffs every 4 hours if needed for wheezing. Opal Medina MD Active apixaban (Eliquis) 5 mg tablet [id number] Take 1 tablet (5 mg) by mouth 2 times a day. Opal Medina MD Active atorvastatin (Lipitor) 20 mg tablet [id number] Take 1 tablet (20 mg) by mouth once daily. Opal Medina MD Active cholecalciferol (Vitamin D-3) 50 mcg (2,000 unit) capsule [id number] No Take 1 capsule (50 mcg) by mouth once daily. Historical Provider, Not Taking Active cyclobenzaprine (Flexeril) 5 mg tablet [id number] Take 1 tablet (5 mg) by mouth as needed at bedtimefor muscle spasms (for Restless leg). Opal Medina MD Active glucose 4 gram chewable tablet [id number] Chew if needed for low blood sugar - see comments. Historical Provider, Active hydroCHLOROthiazide (HYDRODiuril) 50 mg tablet [id number] Take 1 tablet (50 mg) by mouth once daily. Opal Medina MD Active multivitamin capsule [id number] No once daily. Historical Provider, Taking Active nrpnxhfe-qeyqrofin-NV (Cortisporin) otic solution [id number] Administer 2 drops into the left ear 4 times a day. Opal Medina MD Active sertraline (Zoloft) 100 mg tablet [id number] Take 1 daily Opal Medina MD Active [...] you. Opal Medina MD documented in this [facility]UnV[facility] Work Phone: [phone] 550-420303-20-2024 Instructions* Patient Instructions* Opal Medina MD - 07/31/2023 3:30 PM EDT Set up echo with cardiology Please take medications in the morning with food documented in this [facility]Pro[facility] Work Phone: [phone] Evaluation + Plan note* Assessment & Plan Note - Opal Medina MD - 07/05/2023 12:09 PM ESTAssociated Problem(s): Current moderate episode of major depressive disorder without prior episode ( CMS/HCC) Patient stated his mood is stable on the sertraline. [facility] Work Phone: [phone] Miscellaneous Notes* Assessment & Plan Note - [...] and Dr. Harini Meléndez. Phone number is [phone] * Assessment & Plan Note - Opal Medina MD - 07/05/2023 12:08 PM EST Associated Problem(s): Hypertension Blood pressure stable and well-controlled. documented in this [facility] Work Phone: [phone] Evaluation + Plan note* Assessment & Plan [...] and Dr. Harini Meléndez. Phone number is [phone] [facility] Work Phone: [phone] Evaluation + Plan note* Assessment & Plan Note - Opal Medina MD - 07/05/2023 12:08 PM ESTAssociated Problem(s): Hypertension Blood pressure stable and well-controlled. [facility] Work Phone: [phone] History of Present illness Narrative* Opal Medina MD - 07/05/2023 11:30 AM EST Subjective Patient ID: Ildefonso Rocha is a 63 y.o. male who presents for 4 month follow for general health management. BN Is scheduled here for regular follow-up for his restless leg, hypertension and DVT. Patient remains on Eliquis but is scheduled to have a spinal injection in [place] on July 16. He mentions to me that he wants to know what to do about the Eliquis and that the pain management physicians told him to discuss it with me. I have not received anything from pain management such as a preop clearance or request for discontinuation of his anticoagulation. I will reach out to the office ofDr. Harini [facility]dez at [facility]. Review of Systems Constitutional: Negative for chills, [...] Dose Status acetaminophen (Tylenol) 500 mg tablet [id number] 1 tablet (500 mg). Historical ProviderMD Active albuterol 90 mcg/actuation inhaler [id number] Inhale 2 puffs every 4 hours if needed for wheezing. Opal Medina MD Active apixaban (Eliquis) 5 mg tablet [id number] Take 1 tablet (5 mg) by mouth 2 times a day. Opal Medina MD Active cholecalciferol (Vitamin D-3) 50 mcg (2,000 unit) capsule [id number] No Take 1 capsule (50 mcg) by mouth once daily. Historical ProviderMD Not Taking Active glucose 4 gram chewable tablet [id number] Chew if needed for low blood sugar - see comments. Historical ProviderMD Active hydroCHLOROthiazide (HYDRODiuril) 50 mg tablet [id number] Take 1 tablet (50 mg) by mouth once daily. Opal Medina MD Active Discontinued 07/05/23 1109 Discontinued 07/05/23 1109 multivitamin capsule [id number] No once daily. Historical Provider, Taking Active uxyfbpgj-toarfoqrh-WU (Cortisporin) otic solution [id number] Administer 2 drops into the left ear 4 times a day. Opal Medina MD Active sertraline (Zoloft) 100 mg tablet [id number] Take 1 daily Opal Medina MD Active [...] and Dr. Harini Meléndez. Phone number is [phone] Other Visit Diagnoses Acute swimmer's ear of left side - Primary Relevant Medications mpapvavb-joojkidlq-UH (Cortisporin) otic solution Hypercholesterolemia Relevant Medications atorvastatin (Lipitor) 20 mg tablet Other Relevant Orders Lipid panel Hepatic function panel RLS (restless legs syndrome) Relevant Medications cyclobenzaprine (Flexeril) 5 mg tablet It has been a pleasure seeing you. Opal Medina MD documented in this [facility]Pro[facility] Work Phone: [phone] Instructions* Patient Instructions* Opal Medina MD - 07/05/2023 11:30 AM EST Get fasting s before next appointment Follow up Dr Medina in 4 months for chol etc 30 min appointment documented in this encounterPro[facility] Work Phone: [phone] Hospital Discharge instructions Patient Education 01/26/2023 20:06:45 [...] Document Reviewed: 04/30/2014 ExitCare Patient Information 2015 [employer], [employer]. This information is not intended to replace advicegiven to you by your health care provider. Make sure you discuss any questions you have with your health care provider. Follow Up Care 01/26/2023 19:47:06 With:GRICELDA OLIVER MD Address: [address] [place] [address] [facility] [place] [address] [phone] When:2-[address] [facility] 09-16-2023 Note Discharge Instructions Thank you [...] OLIVER MD When Within 2-4 days Where: [address] [place] [address] & [place] [address]- [phone] Allergies NKA Medications Please ask your primary [...] Document Reviewed: 04/30/2014 ExitCare Patient Information 2015 [employer]. This information is not intended to replace advicegiven to you by your health care provider. Make sure you discuss any questions you have with your health care provider. Additional Information VACCINATE! IT SAVES LIVES! Members of the community who have not yet received the COVID-19 vaccine and would like to receive it can visit one of [facility] vaccine clinics. There are many vaccine clinic locations within the [facility]. For locations and available times, please visit [email or web address] It is important to note that some COVID mobile vaccine clinics are held outdoors and may be canceled in rainy or stormy conditions. To learn more about pediatric vaccinations (ages 5-11), we invite you to visit the [facility] webpage. [email or web address] learn more about the COVID-19 vaccine, we invite you to visit the CDC website for a list of frequently asked questions. https://www.cdc.gov/coronavirus/2019-ncov/vaccines/faq.html [facility] Access Instructions: Stay connected with your healthcare team and access your personal medical information anytime with the [facility]. If you would like a full copy of your medical records please contact the [facility] Medical Records Department Saturday through Saturday between 8a.m. and 4:30p.m. Please follow the directions below to access the portal: 1.Access the email account you provided upon registration to the hospital.2.Look for an invitation email from [facility].3.Open the email and access the invitation link: Accept Invitation to [facility]4.Fill in the required benson to create your account. Sign into [email or web address] with your username and password that you [...] you will allow to register on the [facility] Portal for access to your information. You can also access the [facility] Patient Portal on the [employer]. Simply click on Health Records under [employer] and then click on the [facility] logo. [...] Call your local pharmacy or go to [email or web address] to find one close to you.3.Make use of household items: Use cat litter or old coffee grounds to dispose medications if other options arenot available. Mix your drugs with these household products, seal them in an airtight container andthrow it into the garbage. Call [facility]: [phone] to be sure your drugs can be [...] aware that I should contact my doctor. Patient/Inspector Timers Signature: Date/Time: Relationship to Patient: Witness Name/Signature: Date/Time: [facility]09-06-2023 Note Date of Service 01/16/2023 Chief [...] by BECK PECK on 01/16/2023 02:[address] [facility]09-06-2023 Hospital Discharge instructions Patient Education 01/16/2023 11:29:25 5 - [place] [facility] Post-op Instruction 12/2016 (Custom)(CUSTOM) [facility] Post-operative Instructions PLEASE FOLLOW [facility] POST-OP INSTRUCTIONS GIVEN WATCH FOR SIGNS OF INFECTION: call the office ([phone]) if experencing any of the following: (Usually [...] on your follow up instructions. Form: 338A (20040) R: 09/16 Follow Up Care 07/04/2022 10:35:51 With:[facility] Address: [address] [place] [phone] When:01/21/2023 09:00:00 Comments:This is your Physical Therapy appt. With:FELIPE LAU PA-C, Orthopedic Address: [facility] [address] [place] [phone] When:01/28/2023 13:45:00 Comments:This is your Ortho Follow up appt. [facility] 09-06-2023 Note Discharge Instructions Thank you for allowing [facility] to assist you with your healthcare needs. The following is importantdischarge information regarding your hospital visit. Your Care Team Gricelda Oliver MD [facility] Your Diagnosis COPD without exacerbation History of DVT in adulthood HTN (hypertension) Knee arthropathy Osteoarthritis Other acute postprocedural pain What to do next Follow Up Appointments Follow Up with FELIPE LAU PA-C, Orthopedic When 01/28/2023 01:45 PM EDT Why: This is your Ortho Follow up appt. Where: [facility] [address] [place] [address]- [facility] with [facility] When 01/21/2023 09:00 AM EDT Why: This is your Physical Therapy appt. Where: [address] [place] [address] [phone] The Following Activity and Diet Have Been [...] Duration: 5 Days Pickup at [facility] #[id number] 01/16 @ 8am New doxycycline (doxycycline hyclate 100 mg oral capsule) 1 cap by mouth Every 12 hours Duration: 14 Days Pickup at [facility] #[id number] 01/16 @ 8am New famotidine (Pepcid 20 mg oral tablet) 1 tab(s) by mouth Once a day Pickup at [facility] #[id number] 01/16 @ 8am New ondansetron (ondansetron 4 mg oral tablet) 1 tab(s) by mouth Every 8 hours as needed for Nausea/Vomiting Pickup at [facility] #[id number] New oxyCODONE (oxyCODONE 5 mg oral tablet ( IMMEDIATE release )) 1-2 tab(s) by mouth Every 4 hours as needed for as needed for pain Knee arthropathy Other acute postprocedural pain Duration: 7 Days Pickup at [facility] #[id number] 01/16 @ 12pm Unchanged albuterol (Albuterol (Eqv-ProAir [...] Every day 01/16 @ 8am Pharmacy Information [facility] #[id number]: [address], [place] [id number] [phone] Please take this list to your next [...] may report side effects to FDA at 2-119-HKL-6597. What other drugs will affect docusate and senna? Other drugs may affect docusate and senna, including prescription and fqzk-iwl-dajksdr medicines, vitamins, and herbal products. Tell your [...] to ensure that the information provided by [employer]. ('Multum') is accurate, up-to-date, and complete, but no guarantee is made to that effect. Drug information contained herein may be time sensitive. [email or web address] information has been compiled for use by healthcare practitioners and consumers in the [place] and therefore alive.cn does not warrant that uses outside of the [place] are appropriate, unless specifically indicated otherwise. [employer] drug information does not endorse drugs, diagnose patients or recommend therapy. [employer] drug information isan informational resource designed to [...] effective or appropriate for any given patient. alive.cn does not assume any responsibility for any aspect of healthcare administered with the aid of information alive.cn provides. The information contained herein is not intended to cover all possible uses, directions, precautions, warnings, drug interactions, allergic reactions, or adverse effects. If you have questions about the drugs you are taking, check with your doctor, nurse or pharmacist. Copyright 1780-6430 [employer]. Version: 5.. Revision Date: 12/17/2022. doxycycline (oral/injection) (DOX i CRAIG klenikhil) Acticlate, Adoxa, Alodox, Avidoxy, Doryx, Doryx MPC, Lymepak, Mondoxyne NL, Monodox, Morgidox, Morgidox 5z444po, Morgidox 7o358xb, Okebo, Oracea, Targadox, Vibramycin, Vibramycin Calcium, Vibramycin [...] bone and tooth development in a nursing infant. Do not breastfeed while you are taking doxycycline. Doxycycline can cause permanent yellowing or graying of the teeth in children younger than 8 years old. Children should use doxycycline only in cases of severe or life-threatening conditions such as anthrax or Delshire spotted fever. The benefit of treating a [...] may report side effects to FDA at 8-771-KMC-7258. What other drugs will affect doxycycline? Sometimes it is not safe to use certain medications at the same time. Some drugs can affect your blood levels of other drugs you take, which may increase side effects or make the medications less effective. Other drugs may affect doxycycline, including prescription and eodp-kdi-xwhcept medicines, vitamins, and herbal products. Tell your [...] to ensure that the information provided by [employer]. ('Multum') is accurate, up-to-date, and complete, but no guarantee is made to that effect. Drug information contained herein may be time sensitive. alive.cn information has been compiled for use by healthcare practitioners and consumers in the [place] and therefore alive.cn does not warrant that uses outside of the [place] are appropriate, unless specifically indicated otherwise. [employer] drug information does not endorse drugs, diagnose patients or recommend therapy. [employer] drug information isan informational resource designed to [...] effective or appropriate for any given patient. alive.cn does not assume any responsibility for any aspect of healthcare administered with the aid of information alive.cn provides. The information contained herein is not intended to cover all possible uses, directions, precautions, warnings, drug interactions, allergic reactions, or adverse effects. If you have questions about the drugs you are taking, check with your doctor, nurse or pharmacist. Copyright 7833-3565 [employer]. Version: 23.. Revision Date: 12/12/2022. oxycodone (ox [...] The extended-release form of oxycodone is for ouovpq-ill-paicm treatment of pain and should not be [...] against the law. Stop taking all other ewopsu-wzm-bjnnx opioid pain medicines when you start taking [...] may report side effects to FDA at 2-019-QWF-9956. What other drugs will affect oxycodone? You [...] drugs may affect oxycodone. This includes prescription tahiyju-mlo-kwcnhcm medicines, vitamins, and herbal products. Not all [...] to ensure that the information provided by [employer]. ('Multum') is accurate, up-to-date, and complete, but no guarantee is made to that effect. Drug information contained herein may be time sensitive. alive.cn information has been compiled for use by healthcare practitioners and consumers in the [place] and therefore alive.cn does not warrant that uses outside of the [place] are appropriate, unless specifically indicated otherwise. [employer] drug information does not endorse drugs, diagnose patients or recommend therapy. [employer] drug information isan informational resource designed to [...] effective or appropriate for any given patient. alive.cn does not assume any responsibility for any aspect of healthcare administered with the aid of information alive.cn provides. The information contained herein is not intended to cover all possible uses, directions, precautions, warnings, drug interactions, allergic reactions, or adverse effects. If you have questions about the drugs you are taking, check with your doctor, nurse or pharmacist. Copyright 8148-6783 [employer]. Version: 16.. Revision Date: 12/14/2022. famotidine (oral/injection) [...] may report side effects to FDA at 3-139-SBA-7561. What other drugs will affect famotidine? Famotidine oral can make it harder for your body to absorb other medicines you take by mouth. Tell your doctor if you are taking: cefditoren; dasatinib; delavirdine; fosamprenavir; or tizanidine (if you are taking famotidine liquid). This list is not complete. Other drugs may affect famotidine, including prescription and dsqd-oyv-gjtlxjj medicines, vitamins, and herbal products. Not all [...] to ensure that the information provided by [employer]. ('Multum') is accurate, up-to-date, and complete, but no guarantee is made to that effect. Drug information contained herein may be time sensitive. alive.cn information has been compiled for use by healthcare practitioners and consumers in the [place] and therefore alive.cn does not warrant that uses outside of the [place] are appropriate, unless specifically indicated otherwise. [employer] drug information does not endorse drugs, diagnose patients or recommend therapy. [employer] drug information isan informational resource designed to [...] effective or appropriate for any given patient. alive.cn does not assume any responsibility for any aspect of healthcare administered with the aid of information alive.cn provides. The information contained herein is not intended to cover all possible uses, directions, precautions, warnings, drug interactions, allergic reactions, or adverse effects. If you have questions about the drugs you are taking, check with your doctor, nurse or pharmacist. Copyright 8551-3428 [employer]. Version: .. Revision Date: 12/03/2022. Education Materials [facility] Post-operative Instructions PLEASE FOLLOW [facility] POST-OP INSTRUCTIONS GIVEN WATCH FOR SIGNS OF INFECTION: call the office ([phone]) if experencing any of the following: (Usually [...] on your follow up instructions. Form: 338A (67805) R: 09/16 Additional Information VACCINATE! IT SAVES LIVES! Members of the community who have not yet received the COVID-19 vaccine and would like to receive it can visit one of [facility] vaccine clinics. There are many vaccine clinic locations within the [facility]. For locations and available times, please visit https://gettheshot.coronavirus.[place].gov/. It is important to note that some COVID mobile vaccine clinics are held outdoors and may be canceled in rainy or stormy conditions. To learn more about pediatric vaccinations (ages 5-11), we invite you to visit the [facility] webpage. https://[email or web address].org/pages/[email or web address]-Fmayx-Fflojfemipf-Gzmzmsmrwp-Cvknf-[email or web address] stions.htmlTo learn more about the COVID-19 vaccine, we invite you to visit the CDC website for a list of frequently asked questions.https://www.cdc.gov/coronavirus/2019-ncov/vaccines/faq.html [employer] Patient Portal Access Instructions: Stay connected with your healthcare team and access your personal medical information anytime with the [employer] Patient Portal. Please follow the directions below to create your [employer] account: 1.Access the email account you provided upon registration to the hospital/physician office.2.Look for an invitation email from [facility].3.Open the email and access the invitation link: AcceptInvitation to [employer].4.Fill in the required benson to create your account. To access your account, visit KPA[employer]art. Click the blue button labeled Access Patient [...] who you will allowto register on the [employer] Patient Portal for access to your information. You can also access the [facility] Patient Portal on the [employer] jacklyn. Simply click on Patient Portal and then log into your account. If you would like to receive a full copy of your medical records, please contact the [facility] Medical Records Department by calling [phone], Saturday through Saturday between 8 a.m. and [...] Call your local pharmacy or go to [email or web address] to find one close to you.3.Make use of household items: Use cat litter or old coffee grounds to dispose medications if other options arenot available. Mix your drugs with these household products, seal them in an airtight container andthrow it into the garbage. Call [facility]: [phone] to be sure your drugs can be [...] COPY. Signatures Patient Education Materials 5 - [facility] Post-op Instruction 12/2016 (Custom)(CUSTOM) Medication Leaflets docusate and senna, doxycycline (oral/inj (more content not included)... [facility] [id number] Note Date of Service 01-16-2023 Chief Complaint [...] physical therapy at onsite physical therapy in [place]. 4. Wound dressing: Discussed with patient plan [...] plan and anticipates discharge home today. [facility] Office: Osteoarthritis Status [...] GRICELDA OLIVER MD on 01/16/2023 08:[address] [facility]09-05-2023 Note ORIGINAL EXAMINATION: POSTOPERATIVE KNEE TECHNIQUE: [...] Sign Date: 01/15/2023 9:33:34 AM Ordering Provider: [facility]09-05-2023 Anesthesiology Consult note Patient: ILDEFONSO ROCHA Age: 62 years Sex: Male : 1960 Associated Diagnoses: None Author: JERSEY MURPHY APRN-INVESTIGATION DIVISION SERGEANT Assessment Postanesthesia assessment Vitals: Vital signs from [...] by JERSEY MURPHY on 01/15/2023 08:[address] [facility]09-05-2023 Anesthesiology Consult note Patient: ILDEFONSO ROCHA [...] Abscess of left leg / SNOMED CT 639293669 / Confirmed Cellulitis of leg / SNOMED CT 3510459018 / Confirmed COPD (chronic obstructive pulmonary disease) / SNOMED CT 42045694 / Confirmed Cancer of skin of face / SNOMED CT 9565908230 / Confirmed Obesity / SNOMED CT 3754914876 / Confirmed Osteoarthritis of left knee / SNOMED CT 4020568255 / Confirmed, Active Problems (9) Abscess of left leg Cancer of skin of face Cellulitis of leg COPD (chronic obstructive pulmonary disease) DVT (deep venous thrombosis) HTN (hypertension) Obesity Osteoarthritis of left knee Tobacco use Histories Past Medical History: Active COPD (chronic obstructive pulmonary disease) (29859477) Obesity (3588014551) Cancer of skin of face (1072244476) Family History: Heart disease Grandparent Stroke Grandparent Cancer Mother Procedure history: Arthroplasty of knee (48551475) on 07/10/2022 at 62 Years. Comments: 07/10/2022 8:57 Gena Ramos RN ROBOTIC ASSISTED LEFT KNEE ATHROPLASTY Abscess (543672734) on 07/17/2021 at 61 Years. Comments: 07/21/2021 13:37 Meeta Miller LPN I&D SCROTAL ABSCESS (OFFICE) Excision of melanoma (174323341). History of hernia repair (6066350795). Comments: 06/24/2021 19:39 BAMBI Miranda RN Uyen occured as infant Social History Social & Psychosocial Habits Alcohol 01/15/2023Risk Assessment: Denies Alcohol Use 01/15/2023 Use: denies Substance Abuse 01/15/2023Risk Assessment: Denies Substance Abuse 01/15/2023 Use: denies Tobacco 01/15/2023 Tobacco Use: 5-9 cigarettes (between 1 Type: Cigarettes Number of years: 40 Home/Environment 01/15/2023 Domestic Concerns Denies Living situation: Home/Independent Primary Manager [employer]: Self Safe place to go: Yes Lives [...] Signs(last 24 hrs) Last Charted Heart Rate Ongiolfdk37 bpm (JAN 15 07:35) Resp Rate 14 br/min (JAN 15 05:40) SBP99 mmHg (JAN 15 07:35) DBP66 mmHg (JAN 15 07:35) Measurements from flowsheet : Measurements 01/15/2023 5:40 EDT Height 172.7 cm Height in inches 68 inch(es) Admission Weight 119 kg Weight Lbs 261.8 lb Polk Body Weight 68.38 kg Admission Body Mass [...] Device (SCD) 01/15/2023 7:02 EDT SN - WA - Route of Administration Local SN - WA - Route of Administration Local SN - WA - Route of Administration Local SN - WA - By (Single) SN - WA - By (Single) SN - WA - By (Single) SN - WA - By (Single) SN - WA - By (Single) SN - WA - By (Single) 01/15/2023 6:55 EDT SN - CAt - Case Attendee SN - CAt - Case Attendee SN - CAt - Role Performed Coal Hauler 01/15/2023 6:53 EDT SN - Irl - Irrigant Normal Saline SN - Irl - Irrigant Normal Saline SN - Irl - Irrigant Sterile Water SN - IrI - Volume In 500 mL SN - IrI - Volume In 450 mL SN - Irl - Additive BETADINE (POVIDONE IODINE) SOLUT SN - Irl - Additive IRRIGATION CHG 0.05% IRRISEPT 12/CA [id number] SN - IrI - Volume Out 500 [...] SN - CAt - Role Performed Physician Feeder Operator SN - CAt - Role Performed INVESTIGATION DIVISION SERGEANT SN - CAt - Role Performed Fire Dispatcher 1 SN - CAt - Role Performed Scrub 1 SN - CAt - Role Performed Hospital Recruiter 1 01/15/2023 6:42 EDT SN - Preop [...] Person #1 We May Share JEY ROCHA [phone] Designated Person #1 Relationship Spouse Designated Person [...] Method Explanation, Printed materials Preferred Spoken Language Romanian Preferred Written Language Romanian Teaching Evaluation Verbalizes/Nonverbally indicates understanding Total Joint [...] Weight 119 kg Weight Lbs 261.8 lb [place]k Body Weight 68.38 kg Admission Body Mass [...] Symptoms Ulcers/Lesions Skin Temperature Warm Skin Description Mitchell, Dry Skin Integrity Not intact Skin Moisture General Dry IV Present Present Neurological Symptoms Patient denies Extremity Movement Equal Characteristics of Speech Clear Level of Consciousness Alert Strength All Extremities Strong Tone All Extremities Normal Sensation All Extremities Intact Affect/Behavior Appropriate, Calm, Cooperative Orientation Oriented x 4 Allergies No Anesthesia Extension Set Applied Yes Accounts Payable Clerk On Yes Consent Form Signed Yes Patient [...] Intake 01/14/2023 20:00 . Assessment and Plan [place] Society of Anesthesiologists (ASA) physical status classification: Class III. Anesthetic Preoperative Plan Anesthetic technique: Spinal. Postoperative pain management: adductor. Informed consent: signed by patient. Digitally Signed by JERSEY MURPHY on 01/15/2023 07:[address] [facility]08-28-2023 Note ORIGINAL EXAMINATION: CT OF THE [...] Sign Date: 01/07/2023 3:41:18 PM Ordering Provider: [facility]08-14-2023 Evaluation + Plan note* Assessment & Plan [...] short tempered with his new or family. [facility] Work Phone: [phone]) 922-537508-14-2023 Evaluation + Plan note* Assessment & Plan Note - Opla Medina MD - 12/24/2022 11:26 AM EDTAssociated Problem(s): Preop examination BC and CHEM profile were both reviewed and look acceptable. Patient should do well through the surgery and he is cleared was given instructions to stop his Coumadin on January 12. [facility] Work Phone: [phone] 212-682708-14-2023 Miscellaneous Notes* Assessment & Plan Note - [...] surgery. * Assessment & Plan Note - Opal Medina MD - 12/24/2022 11:25 AM EDT Associated Problem(s): Hypertension Blood pressure is stable and well-controlled at this time without any issues documented in this [facility] Work Phone: [phone] Evaluation + Plan note* Assessment & Plan [...] as soon as possible after the surgery. [facility] Work Phone: [phone] Evaluation + Plan note* Assessment & Plan Note - Opal Medina MD - 12/24/2022 11:25 AM EDTAssociated Problem(s): Hypertension Blood pressure is stable and well-controlled at this time without any issues [facility] Work Phone: [phone] 562-753608-14-2023 History of Present illness Narrative* Opal Medina [...] Dose Status acetaminophen (Tylenol) 500 mg tablet 64503268 1 tablet (500 mg). Historical ProviderMD Active albuterol 90 mcg/actuation inhaler 57211064 No Inhale 2 puffs every 4 hours if needed for wheezing.Historical ProviderMD Taking Active apixaban (Eliquis) 5 mg tablet 70827734 Take 1 tablet (5 mg) by mouth 2 times a day. Opal Medina MD Active cholecalciferol (Vitamin D-3) 50 mcg (2,000 unit) capsule 17506740 No Take 1 capsule (50 mcg) by mouth once daily. Historical ProviderMD Not Taking Active glucose 4 gram chewable tablet 52704163 Chew if needed for low blood sugar - see comments. Historical ProviderMD Active hydroCHLOROthiazide (HYDRODiuril) 50 mg tablet 98242656 Take 1 tablet (50 mg) by mouth once daily. Opal Medina MD Active multivitamin capsule 00303447 No once daily. Historical Provider, Taking Active sertraline (Zoloft) 100 mg tablet 09202252 Take 1 daily Opal Medina MD Active [...] a pleasure seeing you. documented in this [facility] Work Phone: [phone] Instructions* Patient Instructions* Opal Medina MD - 12/24/2022 11:00 AM EDT Rec quit smoking. Stop eliquis on 01/12/23 for surgery on 01/15/[address] Medina in 6 to 8 weeks after surgery documented in this [facility]Un[facility] Work Phone: [phone] 227-213508-07-2023 Evaluation + Plan note Future Appointments Future Scheduled Tests Radiology* CT Knee w/o Contrast Right 12/17/22 [facility] 08-07-2023 Evaluation + Plan note Future Scheduled Tests Radiology* CT Knee w/o Contrast Right 12/17/22 [facility] 06-20-2023 Evaluation + Plan note* Assessment [...] is done to prevent any recurrent DVTs. [facility] Work Phone: [phone] Miscellaneous Notes* Assessment & Plan Note - [...] reviewed with the patient. documented in this [facility] Work Phone: [phone] Evaluation + Plan note* Assessment & Plan [...] headaches were all reviewed with the patient. [facility] Work Phone: [phone] History of Present illness Narrative* Opal Medina [...] lack of movement. 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 Historical ProviderMD Active albuterol 90 mcg/actuation inhaler 95482465 Inhale 2 puffs every 4 hours if needed for wheezing. Historical ProviderMD Active apixaban (Eliquis) 5 mg tablet 59091835 Take 1 tablet (5 mg) by mouth in the morning and 1 tablet (5 mg) before bedtime. Opal Medina MD Active Discontinued 10/30/22 1147 cholecalciferol (Vitamin D-3) 50 mcg (2,000 unit) capsule 95330877 Take 1 capsule (50 mcg) by mouthonce daily. Historical ProviderMD Active hydroCHLOROthiazide (HYDRODiuril) 50 mg tablet [id number] once daily. Historical ProviderMD Active Discontinued 10/30/22 1147 multivitamin capsule 23720565 once daily. Historical ProviderMD Active Discontinued 10/30/22 1147 Discontinued 10/30/22 1148 [...] a pleasure seeing you. documented in this encounterPro[facility] Work Phone: [phone] Instructions* Patient Instructions* Opal Medina MD - 10/30/2022 11:30 AM EDT Follow up Dr Medina in 1 month for depression 30 min appointment documented in this encounterPro[facility] Work Phone: [phone] Evaluation + Plan note* Assessment & Plan [...] return to physical therapy at this time. [facility] Work Phone: [phone] 322-262603-21-2023 Miscellaneous Notes* Assessment & Plan Note - [...] now we will monitor. documented in this encounterPro[facility] Work Phone: [phone] Evaluation + Plan note* Assessment & Plan [...] his right knee has been totally replaced. [facility] Work Phone: [phone] 431-154103-21-2023 Evaluation + Plan note* Assessment & Plan Note - Opal Medina MD - 07/31/2022 1:21 PM EDTAssociated Problem(s): Hypertension Mild elevation in blood pressure today at 132/66 but for now we will monitor. [facility] Work Phone: [phone] History of Present illness Narrative* Opal Medina [...] has been totally replaced. Relevant Orders Disability Placbelle Other Visit Diagnoses Acute deep vein thrombosis (DVT) of other specified vein of left lower extremity (CMS/HCC) - Primary Relevant Medications apixaban (Eliquis) 5 mg tablet Other Relevant Orders Disability Placard It has been a pleasure seeing you. documented in this encounterPro[facility] Work Phone: [phone] Instructions* Patient Instructions* Opal Medina MD - 07/31/2022 10:45 AM EDT Stop Xarelto and start Eliquis 5mg twice a day Follow up Dr Medina in 3 months You are cleared for physical therapy with no limits from Dr Medina documented in this encounterPro[facility] Work Phone: [phone] Note Discharge Instructions Thank you for allowing [...] Contact InformationSurgical Pre-Test 08/24/2022 08:00 AM EDT [facility] PAT [facility] Knee w/o Contrast Right 08/24/2022 09:30 AM EDT [place] [facility] 09/04/2022 07:30 AM EDT [facility] Main OR Follow Up Appointments Follow Up with FELIPE LAU When 07/23/2022 02:45 PM EDT Where: [facility] [address] [place] [phone] Business (1) Follow Up with CESIA CALLAWAY on site When 07/16/2022 11:00 AM EST [...] to exceed 3000 mg/ day Pickup at [facility] #[id number] 07/11/22 at 0813am New docusate-senna (Senokot S 50 mg-8.6 mg oral tablet) 2 tab(s) by mouth Two (2) times a day Duration: 3 Days Take until first bowel movement, then as needed Pickup at [facility] #[id number] 07/11/22 at 0813am New doxycycline (doxycycline hyclate 100 mg oral capsule) 1 cap by mouth Every 12 hours Duration: 14 Days Pickup at [facility] #[id number] 07/11/22 at 0813am New famotidine (Pepcid 20 mg oral tablet) 1 tab(s) by mouth Once a day Pickup at [facility] #[id number] 07/11/22 t 0813am New meloxicam (Mobic 7.5 mg oral tablet) 1 tab(s) by mouth Twice daily with meals Do not take any other nonsteroidal anti-inflammatories while on meloxicam/ Mobic Pickup at [facility] #[id number] start tomorrow New oxyCODONE (oxyCODONE 5 mg oral tablet ( IMMEDIATE release )) See instructions Status post total left knee replacement 1-2 tab(s) Oral q4h Pickup at [facility] #[id number] 07/11/22 at 1117am Changed aspirin (aspirin 81 mg oral delayed release tablet) 1 tab(s) by mouth Two (2) times a day Duration: 30 Days Take 81 mg aspirin twice daily with food for 4 weeks postoperatively for DVT prophylaxis. Pickup at [facility] #[id number] 07/11/22 at 0813am Unchanged albuterol (Albuterol (Eqv-ProAir [...] Every day 07/11/22 at 1117am Pharmacy Information [facility] #[id number]: [address], [place] [id number] [phone] Please take this list to your next [...] FOR SIGNS OF INFECTION: call the office ([phone]) if experencing any of the following: (Usually [...] on your follow up instructions. Form: 338A (37307) R: 09/16 Additional Information VACCINATE! IT SAVES LIVES! Members of the community who have not yet received the COVID-19 vaccine and would like to receive it can visit one of [facility] vaccine clinics. There are many vaccine clinic locations within the [facility]. For locations and available times, please visit https://gettheshot.coronavirus.[place].gov/. It is important to note that some COVID mobile vaccine clinics are held outdoors and may be canceled in rainy or stormy conditions. To learn more about pediatric vaccinations (ages 5-11), we invite you to visit the [facility] webpage. https://www.[email or web address].org/pages/[email or web address]-Xouje-Flabwnpkitl-Sobcnsaazl-Ntkiq-Scv stions.htmlTo learn more about the COVID-19 vaccine, we invite you to visit the CDC website for a list of frequently asked questions. https://www.cdc.gov/coronavirus/2019-ncov/vaccines/faq.html [facility] Patient Portal Access Instructions: Stay connected with your healthcare team and access your personal medical information anytime with the [employer] Patient Portal.If you would like a full copy of your medical records, please contact the [facility] Medical Records Department, Saturday through Saturday between 8a.m. and 4:30p.m. Please follow the directions below to access the portal: 1.Access the email account you provided upon registration to the [facility].2.Look for an invitation email from [facility].3.Open the email and access the invitation link: Accept Invitation to [facility]4.Fill in the required benson to create your account. Sign into [email or web address] with your username and password that you [...] you will allow to register on the [employer] Patient Portal for access to your information. You can also access the [employer] Patient Portal on the [employer]. Simply click on Health Records under [employer] and then click on the [employer] logo. HOW TO SAFELY DISPOSE OF PRESCRIPTION [...] Call your local pharmacy or go to http://bit.Ebyline/4I5Yh1b to find one close to you.3.Make use of household items: Use cat litter or old coffee grounds to dispose medications if other options arenot available. Mix your drugs with these household products, seal them in an airtight container andthrow it into the garbage. Call [facility]: [phone] to be sure your drugs can be [...] Education Materials Destiney Douglass Post-op Instruction 12/2016 (77586) Medication Leaflets My discharge plan and instructions have been reviewed and explained to me and I,ILDEFONSO ROCHA understand my current condition and have read and understand these discharge instructions. I have received a written copy of the plan/instructions. If I have questions, I am aware that I should contact my doctor. Patient/Inspector Timers Signature: Date/Time: Relationship to Patient: Witness Name/Signature: Date/Time: [facility] Suzy [id number] Note Date of Service 07/11/2022 Chief Complaint [...] by RAINE GARCIA on 07/11/2022 12:[address] [facility]03-01-2023 Hospital Discharge instructions Patient Education 07/11/2022 06:33:10 5 - [facility] Post-op Instruction 12/2016 (12745) [facility] Post-operative Instructions PLEASE FOLLOW [facility] POST-OP INSTRUCTIONS GIVEN WATCH FOR SIGNS OF INFECTION: call the office ([phone]) if experencing any of the following: (Usually [...] on your follow up instructions. Form: 338A (81438) R: 09/16 Follow Up Care 06/19/2022 12:37:03 With:CESIA Andrea [facility] on site Address: When:07/16/2022 11:00:00 Comments:Physical Therapy Initial Eval on July 16, 2022 at 11am. With:FELIPE LAU Address: [facility] [address] [place] [phone] Business (1) When:07/23/2022 14:45:00 [facility] 03-01-2023 Note Date of Service July 11, [...] would like his medications E scribed to [facility]. He will follow-up per postop instructions. He [...] FELIPE LAU PA-C on 07/11/2022 06:[address] [facility]02-28-2023 Note Date of Service 07/10/2022 Reason for Consultation Medical management Referring Physician Dr. Gricelda Oliver History of Present Illness Patient is a 62-year-old male, who follows with Dr. Opal Medina with a past medical history significant for COPD, hypertension, obesity and tobacco use, presents to [facility] for an elective left total knee arthroplasty [...] or dysuria. 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 Patient aware [...] by RAINE GARCIA on 07/10/2022 11:[address] [facility]02-28-2023 Note ORIGINAL EXAMINATION: TWO XRAY VIEWS [...] Sign Date: 07/10/2022 9:17:56 AM Ordering Provider: [address]28-2023 Note ORIGINAL EXAMINATION: TWO XRAY VIEWS OF [...] Sign Date: 07/10/2022 9:17:56 AM Ordering Provider: [address]28-2023 Anesthesiology Consult note Patient: ILDEFONSO ROCHA Age: [...] Abscess of left leg / SNOMED CT 425960350 / Confirmed Cellulitis of leg / SNOMED CT 8155457415 / Confirmed COPD (chronic obstructive pulmonary disease) / SNOMED CT 18643131 / Confirmed Cancer of skin of face / SNOMED CT 1292010436 / Confirmed Obesity / SNOMED CT 6820335108 / Confirmed, Active Problems (7) Abscess of left leg Cancer of skin of face Cellulitis of leg COPD (chronic obstructive pulmonary disease) HTN (hypertension) Obesity Tobacco use Histories Past Medical History: Active COPD (chronic obstructive pulmonary disease) (75727096) Obesity (5719558176) Cancer of skin of face (9046953342) Family History: Heart disease Grandparent Stroke Grandparent Cancer Mother Procedure history: Abscess (115576019) on 07/17/2021 at 61 Years. Comments: 07/21/2021 13:37 Meeta Miller LPN I&D SCROTAL ABSCESS (OFFICE) Excision of melanoma (393651475). History of hernia repair (4568928888). Comments: 06/24/2021 19:39 BAMBI Miranda RN Uyen [...] Resp Rate 15 br/min (JUL 10 05:46) GTC753 mmHg (JUL 10 05:46) DBP76 mmHg (JUL 10 05:46) Measurements from flowsheet : Measurements 07/10/2022 5:46 EST Height 172.7 cm Height in inches 68 inch(es) Admission Weight 126.7 kg Weight Lbs 278.7 lb Polk Body Weight 68.38 kg Admission Body Mass [...] Weight 126.7 kg Weight Lbs 278.7 lb [place]k Body Weight 68.38 kg Admission Body Mass [...] ethnicity Skin Integrity Intact Mucous Membrane Color Mitchell IV Present Present Hand Right 07/10/2022 20 [...] no symptoms Safety Brochure Information Reviewed Yes [facility] Video Viewed No Teaching Evaluation Verbalizes/Nonverbally indicates understanding Admission Note-Nursing Same Day Patient History (Modified) . Assessment and Plan [place] Society of Anesthesiologists (ASA) physical status classification: Class III. Anesthetic Preoperative Plan Anesthetic technique: Spinal. Regional: Spinal. Postoperative pain management: adductor canal block. Risks discussed: nausea, vomiting, headache, hypotension, allergic reaction, serious complications. Informed consent: signed by patient. Digitally Signed by NICOLASA BEE on 07/10/2022 06:[address] [facility]12-30-2022 History of Present illness Narrative * [...] for typographical or grammatical errors. * . [facility] Work Phone: 1(746) 934-849011-18-2022 History of Present illness Narrative* Patient is [...] up and is able to start walking. [facility] Work Phone: 1(800) 118-723206-11-2022 History of Present illness Narrative* Patient is [...] for typographical or grammatical errors. * . JX[facility]Twmtcylefpgr-Ryypmx [facility] Work Phone: 1(648) 571-316106-08-2022 History of Present illness Narrative* Patient is [...] for typographical or grammatical errors. * . GF-Fjoohmvtexry-Lctorn [facility] Work Phone: 1(559) 817-613502-15-2022 Hospital Discharge instructions Patient Education 06/27/2021 12:15:21 [...] Follow these instructions at home: Medicines Take ywgj-yag-buknhzo and prescription medicines only as told by [...] soap and water arenot available, use hand wool and pelt grader. Check your abscess every day for signs [...] 02/06/2006 Document Revised: 08/20/2019 Document Reviewed: 06/12/2018 [employer] Patient Education 2020 [employer] 06/27/2021 12:15:19 Incision and Drainage Incision [...] including vitamins, herbs, eye drops, creams, and dgrf-yal-qsfosez medicines. Any problems you or family members [...] provider tells you to take them. Taking epsm-zwp-wccqoeh medicines, vitamins, herbs, and supplements. Tests You [...] 10/23/2001 Document Revised: 03/30/2019 Document Reviewed: 03/30/2019 [employer]ml[employer] Patient Education 2020 [employer]. 06/27/2021 12:15:16 Cellulitis Cellulitis Cellulitis is an [...] per day to relieve pain. Only take frne-xvc-tzxprpu or prescription medicines for pain, discomfort, or [...] Document Reviewed: 07/14/2012 ExitCare Patient Information 2015 [employer]. This information is not intended to replace advicegiven to you by your health care provider. Make sure you discuss any questions you have with your health care provider. Follow Up Care 06/24/2021 13:57:22 With:MARTHA SCOTT MD, Surgery, Surgery Address: [address] [facility] [place] [place] [phone] When:07/03/2021 15:00:00 Comments:Follow-up as scheduled With:Martinez Oh Address: [address] [place], [place] [phone] When:06/30/2021 11:00:00 Comments:Bring the CPAP or the chip with you. With:OPAL MEDINA MD Address: [address] [place] [phone] When:07/04/2021 11:00:00 Comments:This is your post-hospital follow-up appointment. This was their first available appointment. [facility] 02-12-2022 Evaluation + Plan noteExtracted from: Title:History and Physical Author:MARLEEN AMES FORTUNE COOKIE MAKER-MATERIAL EXPEDITER Date:06/24/21 1. Cellulitis of left thigh 2. [...] induration that is very tender to touch. [facility] does not have surgical coverage over the weekend so I have requested that the ED physician obtain CT of the left thigh to evaluate need for surgical intervention. If the patient does indeed have abscess that will require I&D then he will need transferred to [facility] for surgical consultation, if not he will be admitted at [facility]. Will ask staff to martha area [...] Surg MARSH Appointment Type: OV Follow Up [facility] 12-04-2021 History of Present illness Narrative* [...] for typographical or grammatical errors. * . TE-Bqiljmjwqqxy-Lqkxfu [facility] Work Phone: 1([phone]) 133-492006-04-2021 History of Present illness Narrative* Patient here [...] no x-rays needed. All questions were answered. BK-Jypxqbtlemoh-Aellhm [facility] Work Phone: 1(360) 677-944006-03-2021 History of Present illness Narrative* Patient here [...] no x-rays needed. All questions were answered. UO-Xynamcqgfvdn-Rbkmpn Work Phone: Discharge summary Author Augusto Davis [facility] Note Date/Time December 09, 2024 12:5 4pm [facility] Medical Records Department [address] [place] [address] Emergency Department Summary 12/09/24 MR#: [id number] Acct: [id number] Name: ILDEFONSO ROCHA Rep # :[id number] : 1960 64 From: Augusto Davis MD [...] for antibiotics to help shrink the cyst. 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 Reading Location: [id number] Discharge Plan Triage Chief Complaint: Wound ED [...] worsening symptoms. Antibiotics as directed. Print Language: Romanian Disposition Disposition: Home, Self Care What to do if you have Problems For any increased pain, shortness of breath, bleeding, nausea or vomiting, chestpain, or any unexpected problems, contact your Primary Care Provider. Call [facility] ([phone]) or report to the closest Emergency Room. Call 911 if necessary. 12/09/24 1254 <Electronically signed by Augusto Davis MD> Cosigner Signature (if applicable): CC: Dr. Pamela Hernandez MD ~ Signed [facility] Work Phone: Evaluation + Plan note Future Appointments Appointment Date:06/22/2022 10:30:00 AM Scheduled Provider: Location:[facility] Appointment Type:CT Knee w/o Contrast Left Future Scheduled Tests Radiology* CT Knee w/o Contrast Left 06/22/22 [facility] Evaluation + Plan note Future Appointments [facility] Evaluation + Plan note Future Appointments Appointment Date:08/24/2022 09:30:00 AM Scheduled Provider: Location:[facility] Appointment Type:CT Knee w/o Contrast Right Future Scheduled Tests Radiology* CT Knee w/o Contrast Right 08/24/22 [facility] Evaluation note* Diagnosis Depression screen- Primary Screening for depression Acute deep vein thrombosis (DVT) of femoral vein of left lower extremity (CMS/HCC) Current moderate episode of major depressive disorder without prior episode (CMS/HCC) Arthritis of both knees documented in this encounter [facility] Work Phone: Evaluation note* Diagnosis Chronic [...] of both knees documented in this encounter [facility] Work Phone: Evaluation note* Diagnosis Acute [...] of major depressive disorder without prior episode ([facility]) documented in this encounter [facility] Work Phone: Evaluation note* Diagnosis Vasovagal syncope- Primary Syncope and collapse documented in this encounter [facility] Work Phone: Evaluation note* Diagnosis Vasovagal syncope Syncope and collapse documented in this encounter [facility] Work Phone: Evaluation note* Diagnosis Vasovagal syncope Syncope and collapse documented in this encounter [facility] Work Phone: Evaluation note* Diagnosis Vasovagal syncope Syncope and collapse Syncope and collapse documented in this encounter [facility] Work Phone: Evaluation note* Diagnosis Acute [...] with nicotine-induced disorder documented in this encounter [facility] Work Phone: Evaluation note* Diagnosis Vasovagal [...] with nicotine-induced disorder documented in this encounter [facility] Work Phone: Evaluation note* Diagnosis Acute deep vein thrombosis (DVT) of other specified vein of left lower extremity (CMS/HCC)- Primary Arthritis of both knees Primary hypertension Unspecified essential hypertension Acute deep vein thrombosis (DVT) of femoral vein of left lower extremity (CMS/HCC) documented in this encounter [facility] Work Phone: Evaluation note* Diagnosis Onset [...] Ju ly 2024 11:00am [facility] Work Phone: History of Present illness [...] knee cortisone injections for an underlying osteoarthritis. PP-Kmxhttcxwvla-Znlpic Work Phone: History of Present illness Narrative* patient presents for follow up of sleep. * He has a history of severe sleep apnea with AHI of 56. He was placed on Auto bipap * He reports doing well with bipap and is waiting for new supplies. * Current mask [facility] * Current [employer] * RALPH chip read:usage / days * [...] him. * Current mask [facility] * Current [employer] * RALPH chip read:usage / days * [...] lowamount of centrals but will monitor this. NS-Smboafnkgi-Kzxhs 88057 Work Phone: History of Present illness Narrative* [...] not corrected for typographical or grammatical errors.. 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 * Dr Gricelda Oliver for his knees and Dr Eliseo Braxton for his spine. * Both are at : * [address] * [facility] [address] * [phone] * fax [phone] -[facility] Work Phone: History of [...] these surgeons which will be done at [facility]. * Dr Gricelda Oliver for his knees and Dr Eliseo Braxton for his spine. * Both are at : * [address] * [facility] [address] * [phone] * fax [phone] [facility] Work Phone: History of Present illness Narrative* Pt is here for preop clearance for a left total knee replacement. * He has had preop clearance with an EKG, CXR and blood work at [facility] but noneof it is available to myself today and I have not reviewed it. -[facility] Work Phone: Hospital course Narrative No data available for this section [facility] Hospital Discharge instructions No data available for this section [facility] Hospital Discharge instructionsAdditional Instructions Follow-up with urology in the next 2 days for a wound check. Return to the emergency department with fever, increased swelling, new or worsening symptoms. Antibiotics as directed.[facility] Work Phone: Progress note No data available for this section [facility] Reason for referral (narrative)No reason for referral [facility] Work Phone: Summary Purpose Family History No [...] Unknown Advance Directives No Advanced Directives Records Found Advance Directive Response Recorded Date/ Time Do you have a Healthcare Power of Feeder Associate? No December 09, 2024 10:45am Procedure Findings Note Post Operative Note: PreOp D iagnosis: scrotal abscess Post-Procedure Diagnosis: Same Procedure: 1. Excision of an infected sebaceous cyst right igor scrotum, drainage of a right igor scrotal hematoma 2. 3. 4. 5. Surgeon: tracy Resident/Fellow/Other Feeder Operator: none Anesthesia: gen Estimated Blood Loss (mL): [...] Referral Specialty Diagnoses / Procedures [facility] Referred To Contact Cardiology Diagnoses Vasovagal syncope Syncope and collapse Procedures Vascular US carotid artery duplex bilateral Opal Medina MD [address] [facility], [place] [address] Referral ID Status Reason Start Date Expiration Date Visits Requested Visits Authorized [id number] Authorized Perform Procedure 08/26/2023 08/25/2024 1 1 Specialty Diagnoses / Procedures Referred By [facility] Referred To Contact Radiology Diagnoses Vasovagal syncope Procedures CT head wo IV contrast Opal Medina MD [address] [facility], [address] [address] Referral ID Status Reason Start Date Expiration Date Visits Requested Visits Authorized [id number] Authorized Perform Procedure 08/26/2023 08/25/2024 1 1 Specialty Diagnoses / Procedures Referred By Becky t Referred To Contact Cardiology Diagnoses Vasovagal syncope Procedures Transthoracic Echo Limited AR ECHO TRANSTHORC R-T 2D W/WO M-MODE REC F-UP/LMTD AR DOP ECHOCARD COLOR FLOW VELOCITY MAPPING AR DOP ECHOCARD PULSE WAVE W/SPECTRAL F-UP/LMTD STD Opal Medina MD [address] [facility], [address] [place] [address] Referral ID Status Reason Start Date Expiration Date Visits Requested Visits Authorized [id number] Pending Review Perform Procedure 07/31/2023 07/30/2024 1 [...] 2024 11:0 0am Screening for cardiovascular condition William bradford 2024 11:00am Establishing care with new doctorenrique [...] section and content) DATE CREATED AUTHOR 07/17/2018 [facility] DATE CREATED AUTHOR AUTHOR'S ORGANIZ ATION 07/25/2018 [facility] DATE CREATED AUTHOR AUTHOR'S ORGANIZ ATION 09/29/2018 [facility] DATE CREATED AUTHOR AUTHOR'S ORGANIZ ATION 10/19/2019 [facility] DATE CREATED AUTHOR AUTHOR'S ORGANIZ ATION 07/06/2022 [facility] DATE CREATED AUTHOR AUTHOR'S ORGANIZ ATION 07/06/2022 [employer] DATE CREATED AUTHOR AUTHOR'S ORGANIZ ATION 02/20/2023 [facility] ([place]) DATE CREATED AUTHOR AUTHOR'S ORGANIZ ATION 11/03/2023 [facility] DATE CREATED AUTHOR AUTHOR'S ORGANIZ ATION 11/28/2024 [facility] DATE CREATED AUTHOR AUTHOR'S ORGANIZ ATION 12/10/2024 [facility] Care Team (unrecognized sect ion and content) Care Team Personnel Name: OPAL MEDINA MD Member Role: Primary Care Physician Address: Address: [address] [place] [address] , [place] [address]- Care Team Related Persons Name: SARAH ROCHA Name: REBEKAH ROY Care Team Personnel Name: OPAL MEDINA MD Member Role: Primary Care Physician Address: Address: [address] [place] [address] , [place] [address]- Care Team Related Persons Name: SARAH ROCHA Name: REBEKAH ROY Care Team Personnel Name: OPAL MEDINA MD Member Role: Primary Care Physician Address: Address: [address] [place] [address] , [place] [address]- Care Team Related Persons Name: SARAH ROCHA Name: REBEKAH ROY Care Teams (unrecognized sec tion and content) Warp Placer Relationship Specialty Start Date End Date Opal Medina MD [address] [facility], [address] [place] [address] PCP - General 02/22/18 Warp Placer Relationship Specialty Start Date End Date Opal Medina MD [address] [facility], [address] [place] [address] PCP - General 02/22/18 Warp Placer Relationship Specialty Start Date End Date Opal Medina MD [address] [facility], [facility] [address] [place] [address] PCP - General 02/22/18 Warp Placer Relationship Specialty Start Date End Date Opal Medina MD [address] [facility], [address] [address] PCP - General 02/22/18 Warp Placer Relationship Specialty Start Date End Date Opal Medina MD [address] [facility], [facility] [address] [place] [address] PCP - General 02/22/18 Warp Placer Relationship Specialty Start Date End Date Opal Medina MD [address] Deidra Sapp [facility], [facility] [address] [place] [address] PCP - General 02/22/18 Opal Medina MD [address] [facility], [facility] [address] [place] [address] PCP - MMO ACO PCP 08/12/23 Warp Placer Relationship Specialty Start Date End Date Opal Medina MD [address] [facility], [facility] [address] [place] [address] PCP - General 02/22/18 Opal Medina MD [address] [facility], [address] [address] PCP - MMO ACO PCP 08/12/23 Warp Placer Relationship Specialty Start Date End Date Opal Medina MD [address] [facility], [address] [place] [address] PCP - General 02/22/18 Opal Medina MD [address] [facility], [address] [place] [address] PCP - MMO ACO PCP 08/12/23 Warp Placer Relationship Specialty Start Date End Date Opal Medina MD [address] [facility], [address] [address] PCP - General 02/22/18 Team Status: Inactive [...] Diagnoses Vasovagal syncope Procedures Transthoracic Echo Limited AR ECHO TRANSTHORC R-T 2D W/WO M-MODE REC F-UP/LMTD AR DOP ECHOCARD COLOR FLOW VELOCITY MAPPING AR DOP ECHOCARD PULSE WAVE W/SPECTRAL F-UP/LMTD STD Opal Medina MD [address] [facility], [place] [address] Referral ID Status Reason Start Date Expiration Date Visits Requested Visits Authorized [id number] Authorized Perform Procedure 07/31/2023 07/30/2024 1 1 Specialty Diagnoses / Procedures Referred By Contac t Referred To Contact Radiology Diagnoses Vasovagal syncope Procedures CT head wo IV contrast Opal Medina MD [address] [facility], [address] [address] Referral ID Status Reason Start Date Expiration Date Visits Requested Visits Authorized [id number] Authorized Perform Procedure 08/26/2023 08/25/2024 1 1 Specialty Diagnoses / Procedures Referred By Contac t Referred To Contact Cardiology Diagnoses Vasovagal syncope Syncope and collapse Procedures Vascular US carotid artery duplex bilateral Opal Medina MD [address] [facility], [address] [address] Referral ID Status Reason Start Date Expiration Date Visits Requested Visits Authorized [id number] Authorized Perform Procedure 08/26/2023 08/25/2024 1 1 [...] BE BASED ON THE PRIMARY CLINICAL RECORDS. [facility]. provides no warranty or guarantee of the accuracy or completeness of information in this document.
== END | disposition home or self-care (01) ==
LOC: CVS 07:30
PROVIDERS: PCP Internal Medicine; Referring Provider Internal Medicine; Visit Provider Internal Medicine
DX: Z12.2 Encounter for screening for malignant neoplasm of respiratory organs (principal); I82.562 Chronic embolism and thrombosis of left calf muscular vein; F17.210 Nicotine dependence, cigarettes, uncomplicated; Z13.6 Encounter for screening for cardiovascular disorders; I70.92 Chronic total occlusion of artery of the extremities; M79.89 Other specified soft tissue disorders
CPT/HCPCS: 71271; 76706; 93971

== ENCOUNTER 2024-12-30 05:32 | Day surgery (SDC) | payer MEDICARE, SELFPAY ==
--- NOTE | 2024-12-16 14:29 | PAT.ANE_ITS ---
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 When Was Last Pacemaker Check QUESTION #4 FULL TEXT: You/Your Family Experience fever (hyperthermia) with Anesthesia Last Oral Intake Last Oral intake: Last Oral Intake NPO since Meds taken in AM with sips of water? Meds patient instructed to take am of surgery PONV PONV - group sales manager: PONV - group sales manager Female No 12/16/24 11:24 HX of Motion Sickness Yes 12/16/24 11:24 HX of N/V After Surgery No 12/16/24 11:24 Non-Smoker No 12/16/24 11:24 Duration of Surgery greater No 12/16/24 11:24 than 60 minutes Number of Risk Factors 1 12/16/24 11:24 PONV Score Low Risk 12/16/24 11:24 Height & Weight Height & Weight: Anesthesia: Height & Weight Height 5 ft 10 in 12/09/24 10:18 Respiratory Assessment Respiratory Assessment - group sales manager: Respiratory Tract Infection Hx - group sales manager Hx Respiratory Tract Infection No 12/16/24 11:24 STOP Sleep Apnea STOP Sleep Apnea - group sales manager: STOP Sleep Apnea - group sales manager Hx Hypertension Yes 12/16/24 11:24 Hx Sleep Apnea Yes 12/16/24 11:24 CPAP No 12/16/24 11:24 BIPAP Yes 12/16/24 11:24 Do you snore loudly (louder than talking or can be heard Do you often feel tired/ fatigued/ sleepy during daytime? Has anyone observed you stop breathing during sleep? STOP Results Positive 12/16/24 11:24 QUESTION #5 FULL TEXT : Do you snore loudly (louder than talking or can be heard through closed doors)? Tobacco Use History Tobacco Use History - group sales manager: Tobacco Use History - group sales manager Tobacco Use Smoking Status Current every day smoker 12/16/24 11:24 Hx Tobacco Use Yes 12/16/24 11:24 Years Smoking Packs Smoked per Day Smoking Cessation Date was within the last 15 years Hx Smoking Cessation Date Hx Smoking Cessation No 12/16/24 11:24 Counseling Hematologic Medial History Hematologic Hx - group sales manager: Hematologic Medical Hx - cane flume watchman Hx of Blood Transfusion No 12/16/24 11:24 Hx of Transfusion in last 3 No 12/16/24 11:24 Months Date of Last Transfusion (if within last 3 months) Ever experience any problems No 12/16/24 11:24 with transfusion(s)? Specify any problems Hx of Preganancy in last 3 N/A 12/16/24 11:24 Months Nurse Filling Out Transfusion JZOLLINGE 12/16/24 11:24 & Questions: Date: 12/16/24 12/16/24 11:24 Time: 11:25 12/16/24 11:24 Patient unable to answer at this time (ie. confused, unrespo /Reproduction History /Reproductive History - group sales manager: /Reproductive Hx- group sales manager Hx Now No 12/16/24 11:24 Gestational Age (in weeks): EDC: Hx Hx Para Hx Section [facility] Medical History (Updated 12/16/24 @ 11:24 by Monica Whaley) Marijuana use Ambulates with cane BiPAP (biphasic positive airway pressure) dependence Emphysema, unspecified Hearing problem DVT (deep venous thrombosis) Wears dentures Wears glasses Cancer History of steroid therapy Arthritis High cholesterol Easy bruising Restless legs Back pain Smoker Sleep apnea Shortness of breath on exertion COPD (chronic obstructive pulmonary disease) Leg cramps History of pain when walking History of edema Hypertension Home Medications ?Medication ?Instructions ?Recorded ?Last Taken ?Type albuterol sulfate 90 mcg/actuation 1 puff inhalation Q 6H PRN COPD 05/31/22 Unknown History aerosol inhaler cholecalciferol (vitamin D3) 100 1,000 unit PO DAILY S UPPLEMENT 05/31/22 Unknown History mcg (4,000 unit) capsule hydrochlorothiazide 50 mg tablet 50 mg PO DAILY BP Unknown History multivitamin with minerals-folic 2 tab PO DAILY SUPPLE MENT 05/31/22 Unknown History acid 200 mcg chewable tablet (Men's Daily Gummies) cyclobenzaprine 5 mg tablet 5 mg PO TID PRN muscle spa sm #30 11/30/24 Unknown Rx tabs duloxetine 30 mg capsule,delayed 30 mg PO QDAY #30 cap s 11/30/24 Unknown Rx release (Cymbalta) sertraline 100 mg tablet (Zoloft) 100 mg PO QDAY 11/30 Unknown History sulfamethoxazole 800 1 tab PO BID #20 tabs Unknown Rx mg-trimethoprim 160 mg tablet (Bactrim DS) atorvastatin 20 mg tablet 20 mg PO QPM 12/16/24 Unknow n History Allergy/AdvReac Type Severity Reaction Status Date / Time No Known Allergies Allergy Verified 12/16/24 11:17 Family History Mother Lung cancer Depression Asthma Anxiety Arthritis Hypertension Hyperlipidemia Surgical History History of bilateral knee replacement Hx of colonoscopy Hx of hernia repair Social History adopted: No household members: spouse current occupational status: retired and disabled 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 Sinus rhythm nonspecific T wave abnormality. Recommendation Anesthesia Recommendation Anesthesia recommendation: OPTIMIZED for anesthesia
[2024-12-30] VITALS (9 sets, daily range): BP systolic 94–118; BP diastolic 65–85; PULSE 71–83; RESP 16–18; TEMP 35.8–36.7; O2SAT 93–99; BMI 41.4
--- OUTSIDE RECORDS SUMMARY | 2024-12-30 05:36 | XMS RPT_ITS | CCD ---
Author Organization [facility] CliniSymd Care Team Providers Care Stone Decorator Name Role Phone OPAL MEDINA Attending Unavailable [...] Unavailable Unavailable Sidor, Monica A Unavailable Unavailable Gillespie, Opal Unavailable Unavailable Gillespie, Opal M Unavailable Unavailable Unavailable DR OPAL MEDINA MD Primary Care Physician Snehal vailable Unavailable Unavailable DR OPAL MEDINA MD Primary Care Physician Snehal vailable Geo, Dr. Gricelda Vivar Attending Unav ailable Geo, Dr. Gricelda Vivar Referring Unav ailable Adam, Dr. Opal Yanez Primary Care Unava ilable Gillespie, Dr. Opal Yanez Attending Unava ilable Gillespie, Dr. Opal Yanez Primary Care Unava ilable Adam, Dr. Opal Yanez Referring Unava ilable Gillespie, Dr. Opal Yanez Primary Care Unava ilable Gillespie, Dr. Opal Yanez Attending Unava ilable Gillespie, Dr. Opal Yanez Referring Unava ilable Gillespie, Dr. Opal Yanez Primary Care Unava ilable Gillespie, Dr. Opal Yanez Attending Unava ilable Gillespie, Dr. Opal Yanez Referring Unava ilable Adam, Dr. Opal Yanez Attending Unava ilable Gillespie, Dr. Opal Yanez Referring Unava ilable Adam, Dr. Opal Yanez Primary Care Unava ilable Gillespie, Dr. Opal Yanez Attending Unava ilable Gillespie, Dr. Opal Yanez Referring Unava ilable Gillespie, Dr. Opal Yanez Primary Care Unava ilable Adam, Dr. Opal Yanez Attending Unava ilable Adam, Dr. Opal Yanez Referring Unava ilable Gillespie, Dr. Opal Yanez Primary Care Unava ilable Guardado, Dr. Gricelda Vivar Attending Unav ailable Adam, Dr. Opal Yanez Primary Care Unava ilable Gillespie, Dr. Opal Yanez Attending Unava ilable Adam, Dr. Opal Yanez Referring Unava ilable Adam, Dr. Opal Yanez Primary Care Unava ilable Gillespie, Dr. Opal Yanez Primary Care Unava ilable MD MARTINEZ [place] Attending Unavail able MD MARTINEZ [place] Referring Unavail able Geo, Dr. Gricelda Vivar Referring Unav ailable Sparrow, Anabelle Yuli Smithn Attending Unavailab le Gillespie, Dr. Opal Yanez Primary Care Unava ilable Gillespie, Dr. Opal Yanez Primary Care Unava ilable Guardado, Dr. Gricelda Vivar Attending Unav ailable Guardado, Dr. Gricelda Vivar Referring Unav ailable Gillespie Opal COURTNEY Primary Care Provider ADAM COURTNEY, DR OPAL Wilson Primary Care ELISEO Ramesh DO Attending ELISEO Walsh DO Admitting Emeka MEDINA MD, DR OPAL Wilson Primary Care Lacy OLIVER MD, DR GRICELDA Piña Attending Unavailab aurelio MEDINA MD, DR OPAL Wilson Primary Care Lacy OLIVER MD, DR GRICELDA Piña Attending Lisa Velez MD, DR OPAL Wilson Primary Care UnavailELISEO Mejia DO Attending Emkea MEDINA MD, DR OPAL Wilson Primary Care Lacy OLIVER MD, DR GRICELDA Piña Attending Lisa Velez MD, DR OPAL Wilson Primary Care Unavailgia OLIVER MD, DR GRICELDA Piña Attending Unavailab aurelio GARCIA APRN-BIOMETRIC TECHNICIAN, RAINE M Consulting Unavaila kenn MEDINA MD, DR OPAL Wilson Primary Care Unavailgia OLIVER MD, DR GRICELDA Piña Admitting Unavailab Simone COURTNEY, DR GRICELDA Piña Referring Unavailab aurelio OLIVER MD, DR GRICELDA Piña Attending Unavailab aurelio PECK APRN-BIOMETRIC TECHNICIAN, BECK L Consulting Katerine MEDINA MD, DR [...] MD, DR OPAL Wilson Primary Care Unavailabl jerry LAU PA-C, RAY W Attending Unavailable ADAM COURTNEY, DR OPAL Wilson Primary Care Unavailgia OLIVER MD, DR GRICELDA Piña Attending Unavailab aurelio EMDINA MD, DR OPAL Wilson Primary Care Unavailgia OLIVER MD, DR GRICELDA Piña Attending Unavailab aurelio Medina MD, Opal Wilson Unavailable [phone] ADAM, OPAL M Primary Care Unavailable ADAM, [...] Mary COURTNEY, Dr. Santiago Primary Care Provider [phone] Mary COURTNEY, Dr. Santiago Referring Provider Augusto Davis MD Emergency Provider Augusto Davis MD Attending Provider [phone] Romulo Collier MD Attending Provider [place], Pamela Primary Care Unavailable Augusto Davis Attending Unavailable [place], Pamela Primary Care Unavailable Garry Celeste Attending Unavailable Garry Celeste Referring Unavailable Mary, Pamela Attending Unavailable [place], Pamela Primary Care Unavailable Romulo Collier Attending Unavailable [place], Pamela Attending Unavailable Mary, Pamela Referring Unavailable [place], Pamela Primary Care Unavailable [place], Pamela Referring Unavailable Mary, Pamela Primary Care Unavailable [place], Pamela Attending Unavailable Medications Current Medications Medication Drug [...] tablet by mouth every six hours HYDROcodone-acetaminophen ([place]) 5-325 mg tablet Take 1 tablet by mouth every 6 hours. 0 02/25/2023 07/05/2023 Discontinued (Med List Cleanup) [id number] actuat albuterol 0.09 mg/actuat metered dose [...] 0 Refill(s) Start Date: 06/24/21 Status: Ordered aspirin 81 mg delayed release oral tablet (20 sources) Platelet Aggregation Inhibitor, Nonsteroidal Anti-inflammatory Drug Start: 07-11-2022 End: 10-30-2022 aspirin 81 mg EC tablet 1 tablet (81 mg). 0 07/11/2022 10/30/2022 Discontinued (Therapy completed) Start: 05-31-2022 End: 12-16-2024 take 1 tablet by mouth once daily Aspirin 325 mg Tablet Discontinued 325 mg PO DAILY May 31, 2022 1:00am December 16, 2024 11:18am SUPPLMENT Start: 06-24-2021 aspirin 325 mg oral [...] DO Active atorvastatin 20 mg oral tablet (11 sources) HMG-CoA Reductase Inhibitor Start: 12-16-2024 take 1 tablet by mouth once daily in the evening Atorvastatin 20 mg tablet Active 20 mg PO EVERY EVENING December 16, 2024 12:00am Start: 02-28-2024 take 1 tablet by zoraida th once daily atorvastatin (Lipitor) 20 mg tablet Indications: Hypercholesterolemia Take 1 tablet (20 mg) by mouth once daily. 90 tablet 3 02/28/2024 Active Start: 11-01-2023 take 1 tablet by zoraida once daily atorvastatin (Lipitor) 20 mg tablet [...] QID, # 40 cap(s), 0 Refill(s), Pharmacy: [facility] [id number], 177, cm, 06/24/21 19:36:00 EST, Height, [...] Start: 05-17-2017 take 1 capsule by mo [facility] once daily cholecalciferol (Vitamin D-3) 50 mcg (2,000 unit) capsule Take 1 capsule (50 mcg) by mouth once daily. 05/17/2017 Active cyclobenzaprine hydrochloride 5 mg oral tablet (19 sources) Muscle Relaxant Start: 11-30-2024 take 1 [...] Active Start: 06-09-2018 take 1 tablet by [facility] at bedtime Cyclobenzaprine HCl - 10 [...] Ordered docusate sodium 50 mg / sennosides, detention 8.6 mg oral tablet (2 sources) Start: 01-16-2023 End: 01-21-2023 take 1 tablet by mouth twice daily Senokot S 50 mg-8.6 mg oral tablet Dose = 2 tab(s), Oral, BID, X 5 day(s), # 20 tab(s), 0 Refill(s), [facility]: [facility][id number], 172.7, cm, 01/15/23 10:08:00 EDT, Height, kg, 01/15/23 10:08:00 EDT, Dosing Weight Start Date: 01/16/23 Stop Date: 01/21/23 Status: Ordered Start: 07-11-2022 End: 07-14-2022 take 1 tablet by mouth twice daily Senokot S 50 mg-8.6 mg oral tablet Dose = 2 tab(s), Oral, BID, Take until first bowel movement, then as needed, X 3 day(s), # 12 tab(s), 0 Refill(s), [facility]: [facility] #[id number], 172.7, cm, 07/10/22 9:49:00 EST, Height Start Date: 07/11/22 Stop Date: 07/14/22 Status: Ordered doxycycline hyclate 100 mg oral capsule (3 sources) Tetracycline-class Drug Start: 01-16-2023 End: 01-30-2023 doxycycline hyclate 100 mg oral capsule Dose : 100 mg = 1 cap(s), Oral, q12h, X 14 day(s), # 28 cap(s), 0 Refill(s), 01/30/23 8:07:00 AM EDT, [facility]: [facility] #[id number], 172.7, cm, 01/15/23 10:08:00 EDT, Height, 119, kg, 01/15/23 10:08:00 EDT, Dosing Weight Start Date: 01/16/23 Stop Date: 01/30/23 Status: Ordered Start: 07-11-2022 End: 07-25-2022 doxycycline hyclate 100 mg o ral capsule Dose : 100 mg = 1 cap(s), Oral, q12h, X 14 day(s), # 28 cap(s), 0 Refill(s), 07/25/22 6:34:00 EDT, [facility]: [facility] #[id number], 172.7, cm, 07/10/22 9:49:00 EST, Height, 126.7 Start Date: 07/11/22 Stop Date: 07/25/22 Status: Ordered DULoxetine 30 mg delayed release oral capsule (3 sources) Serotonin and Norepinephrine Reuptake Inhibitor Start: [...] 30 tab(s), 0 Refill(s), [facility]: [facility] #[id number], 172.7, cm, 01/15/23 10:08:00 EDT, Height, kg, [...] / neomycin 3.5 mg/ml / polymyxin b [id number] unt/ml otic solution (8 sources) Aminoglycoside Antibacterial, Polymyxin-class Antibacterial, Corticosteroid Start: 07-05-2023 [id number]-FY (Cortisporin) otic solution Indications: Acute swimmer's ear [...] Acid (Men's Daily Gummies) 200 mcg Tablet,Chewable (4 sources) Start: 05-31-2022 take 1 tablet by [...] Refill(s), 01/23/23 8:08:00 AM EDT, Pharmacy: [facility] #[id number], 172.7, cm, 01/15/23 10:08:00 EDT, Height, kg, [...] 0 Refill(s), 01/23/23 8:08:00 AM EDT, Pharmacy: [facility] #[id number], Knee arthropathy Other acute postprocedural pain, 172.7, [...] tab(s), 0 Refill(s), 07/18/22 6:35:00 EST, Pharmacy: [facility] #[id number], Status post total left knee replacement, 172.7, [...] mg / trimethoprim 160 mg oral tablet (20 sources) Dihydrofolate Reductase Inhibitor Antibacterial, Sulfonamide Antimicrobial [...] # 20 tab(s), 0 Refill(s), [facility]: [facility] [id number] [facility], 177, cm, 06/24/21 19:36:00 EST, Height, 130, [...] Ordered: 17-Jul-2021 DO Start : 17-Jul-2021 Active apixaban 5 mg oral tablet (20 sources) Factor Xa Inhibitor Start: 11-30-2024 End: 12-16-2024 take 1 tablet by mouth twice daily Apixaban 5 mg tablet Discontinued 5 mg PO TWICE A DAY November 30, 2024 12:00am December 16, 2024 11:18am Start: 02-28-2024 take 1 tablet by zoraida [...] before bedtime. 60 tablet 5 07/31/2022 Active Multi Vitamin Daily Oral Tablet (7 [...] potassium 99 mg extended release oral tablet (4 sources) Start: 05-31-2022 End: 11-30-2024 take 1 [...] Date Documented Da te Episodic/Chronic Administrative/social admission (5 sources) First encounter by subject; Translations: [Persons encountering health services in other specified circumstances] Onset: 5 11-30-2024 Episodic Anxiety disorders (4 sources) Moderate anxiety; Translations: [Anxiety disorder, unspecified] Onset: 5 11-30-2024 Chronic Asthma (20 sources) Unspecified asthma, uncomplicated; Translations: [Asthma] Onset: 9 06-29-2022 Chronic Chronic obstructive pulmonary disease and bronchiectasis (20 sources) Chronic obstructive pulmonary disease, unspecified; Translations: [Emphysema, unspecified] Onset: 9 Chronic Chronic obstructive pulmonary disease and bronchiectasis (1 source) Chronic obstructive pulmonary disease and bronchiectasis; Translations: [Other specified chronic obstructive pulmonary disease] Onset: 5 Coma; stupor; and brain damage (7 sources) Daytime somnolence; Translations: [Excessive daytime sleepiness] Episodic Diseases of white blood cells (4 sources) Leukocytosis; Translations: [Leukocytosis] Chronic Disorders of lipid metabolism (9 sources) Hypercholesterolemia; Translations: [Pure hypercholesterolemia, unspecified] Onset: 4 07-05-2023 Chronic Esophageal disorders (5 sources) Gastroesophageal reflux disease; Translations: [Gastro-esophageal reflux [...] c heek approx 2006; Melanomas of skin (7 sources) H/O Malignant melanoma; Translations: [Personal history of malignant melanoma of skin] Onset: 5 11-30-2024 Episodic Mood disorders (18 sources) Moderate major depression, single episode; Translations: [...] Resolved: 3 Chronic Other aftercare (1 source) intermediate card tender (current) use of aspirin; Translations: [intermediate card tender (current) use of aspirin] Onset: 9 Episodic Other aftercare (2 sources) Long-term current use of anticoagulant; Translations: [FPC (current) use of anticoagulants] 12-09-2024 Episodic Other [...] Other hereditary and degenerative nervous system conditions (6 sources) Restless legs; Translations: [Restless legs syndrome] 07-05-2023 Chronic Other hereditary and degenerative nervous system conditions (3 sources) Restless legs syndrome; Translations: [Restless legs syndrome] Onset: 4 Chronic Other lower respiratory disease (1 source) Snoring; Translations: [SNORING] Onset: 9 Episodic Other male genital disorders (1 source) Scrotal pain; Translations: [Scrotal pain] Onset: 5 Episodic Other nervous system disorders (1 source) Other chronic pain; Translations: [Other chronic pain] Onset: 5 Chronic Other nervous system disorders (1 source) Postoperative [...] feces] Onset: 5 Resolved: 1 11-30-2024 Episodic Phlebitis; thrombophlebitis and thromboembolism (4 sources) Chronic deep venous thrombosis; Translations: [Chronic embolism and thrombosis of unspecified deep veins of unspecified lower extremity] Onset: 5 11-30-2024 Chronic Phlebitis; thrombophlebitis and thromboembolism (20 sources) Acute deep venous thrombosis of left femoral vein; Translations: [Acute embolism and thrombosis of left femoral vein] Onset: 3 10-30-2022 Episodic Residual codes; unclassified (4 sources) Obstructive sleep apnea (adult) (pediatric); Translations: [...] Onset: 9 Rheumatoid arthritis and related disease (5 sources) Rheumatoid arthritis; Translations: [Rheumatoid arthritis, unspecified] [...] (2 sources) G47.33 RALPH Onset: 9 Unclassified (3 sources) Low back pain, unspecified; Translations: [Low back pain, unspecified] Onset: 2 Unclassified (6 sources) Z85.820 - Personal history of malignant [...] Test Name Value Interpretation Reference Range Facility Cardiovascular ultrasound re portOrdered By: Romulo Collier on 12-21-2024 Study report [facility] [place] [address] AAA Screening 12/18/24 0841 MR#: [id number] Acct: [id number] Name: ILDEFONSO ROCHA Rep # :[id number] : 1960 64 From: Romulo Raines Attending Dr: Dr. Pamela Hernandez MD Status: REG CLI Ordering Dr: Pamela Hernandez MD Date: 12/18/24 Location: [facility] Sex: M C Admitted: Reason For Study Reason For Study: Screening Aorta Measurements Aorta Doppler Measurements Proximal aorta measures1.88cm x 1.88cm. in cross-sectional Peak systolic flow velocities within the proximal aorta axis. measure 85 cm/sec. Proximal aorta measures1.76cm. in longitudinal axis. Peak systolic flow velocities within the mid aorta measure Mid aorta measures1.93cm x 1.97cm. in cross-sectional axis. 76 cm/sec. Mid aorta measures1.82cm. in longitudinal axis. Peak systolic flow velocities within the distal aorta Distal aorta measures1.78cm x 1.90cm. in cross-sectional measure 80 cm/sec. axis. Distal aorta measures1.68cm. in longitudinal axis. Left Iliac Artery Left iliac artery measures 1.11cm x 1.01 cm. in the cross-sectional axis. Left iliac artery measures 0.98 cm. in the longitudinal axis. Peak systolic velocity in the left iliac artery measures 114 cm/sec. Right Iliac Artery Right iliac artery measures 1.06cm x 1.17 cm. in the cross-sectional axis. Rightiliac artery measures 1.03 cm. in the longitudinal axis. Peak systolic velocity in the right iliac artery measures 92 cm/sec. VL/AAA Screening Interpretation Summary Aorta patent, normal caliber Bilateral iliac arteries patent, normal caliber Ordering Physician: Pamela Hernandez Referring Physician: Pamela Hernandez Performed By: Beck Koch, RDCS, RVT 12/21/24739 Date _ Romulo Collier MD CC: Dr. Pamela Hernandez MD ~ Date Dictated: 12/18/24840 Date Transcribed: 12/21/24739 Parking Lot Attendant: Signed [facility] Work Phone: Venous duplex ultrasound rep ortOrdered By: Romulo Collier on 12-21-2024 US Vein [facility] [address] [place] [address] Venous Duplex US, Unilateral 12/18/24 0900 MR#: [id number] Acct: [id number] Name: ILDEFONSO ROCHA Rep # :[id number] : 1960 64 From: Romulo Raines Attending Dr: Dr. Pamela Hernandez MD Status: REG CLI Ordering Dr: Pamela Hernandez MD Date: 12/18/24 Location: [facility] Sex: M C Admitted: Reason For Study Reason For Study: Swelling LLE RIGHT LEFT CFV is compressible, spontaneous, phasic, competent GSV is normal. and demonstrates normal augmentation. CFV is compressible, spontaneous, phasic, competent, Procedure and demonstrates normal augmentation. This is a venous duplex using B-mode, color flow and FV is compressible, spontaneous, phasic, competent spectral Doppler. and demonstrates normal augmentation. Exam performed in department. POP V is compressible, spontaneous, phasic, competent A preliminary report was called and/or faxed to and demonstrates normal augmentation. Mary. T/P Trunk is compressible. PTV is compressible. LT PerV is compressible. Lt GastrocV ispartially compressible with bright intraluminal echoes consistent with chronic DVT. VL/Venous Duplex US, Unilateral Interpretation Summary Chronic deep vein thrombosis is noted in the left gastrocnemius vein. Ordering Physician: Pamela Hernandez Referring Physician: Pamela Hernandez Performed By: Beck Koch, IGOR, RVT 12/21/24 0739 Date _ Romulo Collier MD CC: Dr. Pamela Hernandez MD ~ Date Dictated: 12/18/24899 Date Transcribed: 12/21/24738 Parking Lot Attendant: Signed [facility] Work Phone: AAA Screeningon 12-18-2024 AAA Screening [facility] [address] [place] [id number] AAA Screening 12/18/24840 MR#: [id number] Acct: [id number] Name: ILDEFONSO ROCHA Rep #: [id number] : 1960 64 From: Romulo Collier MD Attending Dr: Dr. Pamela Hernandez MD Status: RE G CLI Ordering Dr: Pamela Hernandez MD Date: 12/18/24 Location: [facility] Sex: M C Admitted: Reason For Study Reason For Study: Screening Aorta Measurements Aorta Doppler Measurements Proximal aorta measures1.88cm x 1.88cm. in cross-sectional Peak systolic flow velocities within the proximal aorta axis. measure 85 cm/sec. Proximal aorta measures1.76cm. in longitudinal axis. Peak systolic flow velocities within the mid aorta measure Mid aorta measures1.93cm x 1.97cm. in cross-sectional axis. 76 cm/sec. Mid aorta measures1.82cm. in longitudinal axis. Peak systolic flow velocities within the distal aorta Distal aorta measures1.78cm x 1.90cm. in cross-sectional measure 80 cm/sec. axis. Distal aorta measures1.68cm. in longitudinal axis. Left Iliac Artery Left iliac artery measures 1.11cm x 1.01 cm. in the cross-sectional axis. Left iliac artery measures 0.98 cm. in the longitudinal axis. Peak systolic velocity in the left iliac artery measures 114 cm/sec. Right Iliac Artery Right iliac artery measures 1.06cm x 1.17 cm. in the cross-sectional axis. Right iliac artery measures 1.03 cm. in the longitudinal axis. Peak systolic velocity in the right iliac artery measures 92 cm/sec. VL/AAA Screening Interpretation Summary Aorta patent, normal caliber Bilateral iliac arteries patent, normal caliber Ordering Physician: Pamela Hernandez Referring Physician: Pamela Hernandez Performed By: Beck Koch, RDCS, RVT 12/21/24739 Date Romulo Collier MD CC: Dr. Pamela Hernandez MD Date Dictated: 12/18/24840 Date Transcribed: 12/21/24739 Parking Lot Attendant: Signed Normal [facility] Low Dose CT Lung Screeningon 12-18-[address] Lung Screening [facility] Imaging Services [address] [place] [address] Lung Screening MR#: [id number] Acct: [id number] Name: ILDEFONSO ROCHA Rep #: [id number] : 1960 M 64 From: Cooper schroeder MD PCP: Dr. Pamela Hernandez MD Status: [facility] CL Study: Low Dose CT Lung Screening Date of Exam: 12/18 Exam# [id number] Ordering Dr: Pamela Hernandez MD PROCEDURE: LOW DOSE CT LUNG SCREENING 12/18/2024 REASON FOR EXAM: SCREENING Current smoker. Patient has smoked 1 pack per day for 46 years. TECHNIQUE: LOW DOSE CT LUNG SCREENING Coronal and Sagittal reconstruction series were provided. One or more dose reduction techniques were used (e.g., Automated exposure control, adjustment of the mA and/or kV according to patient size, use of iterative reconstruction technique). REFERENCE LINK: [place] Lung-RADS RADIATION DOSE SUMMARY: CTDlvol: 4.02 mGy DLP: 138.93 mGycm COMPARISON: None FINDINGS: PULMONARY NODULES: (Only nodules >3mm are reported) Nodules described below are on series 1 unless otherwise specified. Pulmonary Nodules: No suspicious pulmonary nodule seen. Hardware:None Lymph Nodes:No significant lymph node seen. Heart and Vasculature:The heart is nonenlarged Coronary Artery Calcifications: Present Lungs and Airways: Mild linear scarring at the lung bases. Small bulla at the left lower lobe. Pleura:No pleural effusion Upper Abdomen:Unremarkable Bones:Degenerative changes of the thoracic spine. CT/Low Dose CT Lung Screening IMPRESSION: No suspicious pulmonary nodule is seen. Coronary artery calcification (CAC) is is present Lung-RADS Category: 2 BENIGN (BASED ON IMAGING FEATURES OR INDOLENT BEHAVIOR). RECOMMEND 12-MONTH SCREENING LDCT. Other Significant Findings: Reading Location: [id number] CC: Dr. Pamela Hernandez MD Parking Lot Attendant: Signed Normal [facility] Venous Duplex US, Unilateral on 12-18-2024 Venous Duplex US, Unilateral [facility] Cardiovascular Services [address] [place] [address] Venous Duplex US, Unilateral 12/18/24 0900 MR#: [id number] Acct: [id number] Name: ILDEFONSO ROCHA Rep #: [id number] : 1960 64 From: Romulo Collier MD Attending Dr: Dr. Pamela Hernandez MD Status: RE G CLI Ordering Dr: Pamela Hernandez MD Date: 12/18/24 Location: [facility] Sex: M C Admitted: Reason For Study Reason For Study: Swelling LLE RIGHT LEFT CFV is compressible, spontaneous, phasic, competent GSV is normal. and demonstrates normal augmentation. CFV is compressible, spontaneous, phasic, competent, Procedure and demonstrates normal augmentation. This is a venous duplex using B-mode, color flow and FV is compressible, spontaneous, phasic, competent spectral Doppler. and demonstrates normal augmentation. Exam performed in department. POP V is compressible, spontaneous, phasic, competent A preliminary report was called and/or faxed to and demonstrates normal augmentation. Mary. T/P Trunk is compressible. PTV is compressible. LT PerV is compressible. Lt GastrocV is partially compressible with bright intraluminal echoes consistent with chronic DVT. VL/Venous Duplex US, Unilateral Interpretation Summary Chronic deep vein thrombosis is noted in the left gastrocnemius vein. Ordering Physician: Pamela Hernandez Referring Physician: Pamela Hernandez Performed By: Beck Koch, RDCS, RVT 12/21/24 0739 Date Romulo Collier MD CC: Dr. Pamela Hernandez MD Date Dictated: 12/18/24 0900 Date Transcribed: 12/21/24 0739 Parking Lot Attendant: Signed Normal [facility] MR/PAT.Freeman 12-16-2024 MR/PAT.TRIXIE [facility] Medical Records Department [address] [place] [address] PAT - Anesthesia 12/16/24 1429 MR#: [id number] Acct: [id number] Name: ILDEFONSO ROCHA Rep #: [id number] : 1960 64 From: Tomasz Gann MD PCP: Dr. Pamela Hernandez MD Status:PRE [facility] Y Race: C Location: [facility] Pre-Assessment Diagnosis/Proposed Procedure Planned Operative Procedure(s): Excision, Mass Anesthesia History Anesthesia History - adjuster and inspector: Anesthesia History - adjuster and inspector Hx Hospitalization No 12/16/24 11:24 Any Problems With Anesthesia No 12/16/24 11:24 Cholinesterase deficiency No 12/16/24 11:24 You/Your Family Experience No 12/16/24 11:24 fever (hyperthermia) with Relationship Recent Exposure to Contagious Disease Does patient have nerve No 12/16/24 11:24 stimulator Patient instructed to have device shut off --Does patient have Pacemaker or ICD? When Was Last Pacemaker Check QUESTION #4 FULL TEXT: You/Your Family Experience fever (hyperthermia) with Anesthesia Last Oral Intake Last Oral intake: Last Oral Intake NPO since Meds taken in AM with sips of water? Meds patient instructed to take am of surgery PONV PONV - adjuster and inspector: PONV - adjuster and inspector Female No 12/16/24 11:24 HX of Motion Sickness Yes 12/16/24 11:24 HX of N/V After Surgery No 12/16/24 11:24 Non-Smoker No 12/16/24 11:24 Duration of Surgery greater No 12/16/24 11:24 than 60 minutes Number of Risk Factors 1 12/16/24 11:24 PONV Score Low Risk 12/16/24 11:24 Height Weight Height Weight: Anesthesia: Height Weight Height 5 ft 10 in 12/09/24 10:18 Respiratory Assessment Respiratory Assessment - adjuster and inspector: Respiratory Tract Infection Hx - adjuster and inspector Hx Respiratory Tract Infection No 12/16/24 11:24 STOP Sleep Apnea STOP Sleep Apnea - adjuster and inspector: STOP Sleep Apnea - adjuster and inspector Hx Hypertension Yes 12/16/24 11:24 Hx Sleep Apnea Yes 12/16/24 11:24 CPAP No 12/16/24 11:24 BIPAP Yes 12/16/24 11:24 Do you snore loudly (louder than talking or can be heard Do you often feel tired/ fatigued/ sleepy during daytime? Has anyone observed you stop breathing during sleep? STOP Results Positive 12/16/24 11:24 QUESTION #5 FULL TEXT : Do you snore loudly (louder than talking or can be heard through closed doors)? 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 Specify any problems Hx of Preganancy in last 3 N/A 12/16/24 11:24 Months Nurse Filling Out Transfusion JZOLLBORA 12/16/24 11:24 Questions: Date: 12/16/24 12/16/24 11:24 Time: 11:25 12/16/24 11:24 Patient unable to answer at this time (ie. confused, unrespo /Reproduction History /Reproductive History - adjuster and inspector: /Reproductive Hx- adjuster and inspector Hx Now No 12/16/24 11:24 Gestational Age (in weeks): EDC: Hx Hx Para Hx Section SAB [facility] Medical History (Updated 12/16/24 @ 11:24 by Monica Whaley) Marijuana use Ambulates with cane BiPAP (biphasic positive airway pressure) dependence Emphysema, unspecified Hearing problem DVT (deep venous thrombosis) Wears [...] COPD 0 05/31/22 Unknown History aerosol inhaler cholecalciferol (vitamin D3) 100 1,000 unit PO DAILY SUPPLEMENT Unknown History mcg (4,000 unit) capsule hydrochlorothiazide 50 mg tablet 50 mg PO DAILY BP 05/31/22 Unknown History multivitamin with minerals-folic 2 tab PO ALETA (more content not included)... Normal [facility] Emergency Department Summary on 12-09-2024 Emergency Department Summary [facility] Medical Records Department [address] [place] [address] Emergency Department Summary 12/09/24 MR#: [id number] Acct: [id number] Name: ILDEFONSO ROCHA Rep #: [id number] : 1960 64 From: Augusto Davis MD [...] for antibiotics to help shrink the cyst. 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 Normal [facility] Testicular with Arterial Fabien won 12-09-2024 Testicular with Arterial Flow [facility] Imaging Services [address], [place] [address] Testicular with Arterial Flow MR#: [id number] Acct: [id number] Name: ILDEFONSO ROCHA Rep #: [id number] : 1960 M 64 From: Cooper schroeder MD PCP: Dr. Pamela Hernandez MD Status: REG ER Study: Testicular with Arterial Flow Date of Exam: Exam# [id number] Ordering Dr: Augusto Davis MD PROCEDURE: TESTICULAR [...] right scrotal sac as described. Reading Location: [facility] CC: Dr. Augusto Davis MD; Dr. Pamela Hernandez MD Parking Lot Attendant: Signed Normal [facility] Absolute lymphocyte countOrd ered By: Pamela Hernandez on 12-02-2024 Lymphocytes Auto (Unsp spec) [#/Vol] 2.83 10*3/uL 0.83-4.51 [facility] Absolute neutrophil countOrd ered By: Pamela Hernandez on 12-02-2024 Neutrophils (Bld) [#/Vol] 4.3 10*3/uL 2.0-7.7 [facility] Anion gap in Serum or Plasma Ordered By: Pamela Hernandez on 12-02-2024 Anion gap [Moles/Vol] 10 mmol/L 5-15 [facility] Automated lymphocyte count a s percentage of total leukocytesOrdered By: Pamela Hernandez on 12-02-2024 Lymphocytes/100 WBC Auto (Unsp spec) 33.4 % 19-41 [facility] BUN/creatinine ratioOrdered By: Pamela Hernandez on 12-02-2024 Urea nitrogen/Creatinine [Mass ratio] 14.1 mg/mg 10-20 [facility] Basophil percentageOrdered B y: Pamela Hernandez on 12-02-2024 Basophils/100 WBC (Bld) 1.3 % High 0-1 [facility] Bilirubin, totalOrdered By: Pamela Hernandez on 12-02-2024 Bilirubin [Mass/Vol] 0.40 mg/dL 0.00-1.30 [facility] CBC W/Diff, Automatedon 11-11 Absolute Lymph 2.83 X10 3/uL Normal 0.83-4.51 [facility] Comment on above: Performed By: #### L 500.4050, L506.1001, L100.0100, L500.4100 #### [facility] [address] [place], [address] Absolute Neut 4.3 X10 3/uL Normal 2.0-7.7 [facility] Comment on above: Performed By: #### L 500.4050, L506.1001, L100.0100, L500.4100 #### [facility] [address] [place], [address] Basophils/100 WBC (Bld) 1.3 % High 0-1 [facility] Comment on above: Performed By: #### L 500.4050, L506.1001, L100.0100, L500.4100 #### [facility] [address] [place], [address] Eosinophils/100 WBC (Bld) 3.4 % Normal 0-5 [facility] Comment on above: Performed By: #### L 500.4050, L506.1001, L100.0100, L500.4100 #### [facility] [address] [place], [address] Erythrocyte distribution width (RBC) [Ratio] 15.3 % High 11.6-14.6 [facility] Comment on above: Performed By: #### L 500.4050, L506.1001, L100.0100, L500.4100 #### [facility] [address] [place], [address] Hematocrit (Bld) [Volume fraction] 43.3 % Normal 40-54 [facility] Comment on above: Performed By: #### L 500.4050, L506.1001, L100.0100, L500.4100 #### [facility] [address] [place], [address] Hemoglobin (Bld) [Mass/Vol] 14.4 g/dL Normal 13.0-16.5 [facility] Comment on above: Performed By: #### L 500.4050, L506.1001, L100.0100, L500.4100 #### [facility] [address] [place], [address] IG% 0.400 Normal 0.0-0.9 [facility] Comment on above: Result Comment: IG% - Immature Granulocytes (promyelocytes, myelocytes and metamyelocytes) > 1% indicates that a LEFT SHIFT is Present. Performed By: #### L 500.4050, L506.1001, L100.0100, L500.4100 #### [facility] [address] [place], [address] Lymphocytes/100 WBC (Bld) 33.4 % Normal 19-41 [facility] Comment on above: Performed By: #### L 500.4050, L506.1001, L100.0100, L500.4100 #### [facility] [address] [place], [address] MCH (RBC) [Entitic mass] 29.6 pg Normal 27.0-32.0 [facility] Comment on above: Performed By: #### L 500.4050, L506.1001, L100.0100, L500.4100 #### [facility] [address] [place], [address] MCHC (RBC) [Mass/Vol] 33.3 g/dL Normal 32-36 [facility] Comment on above: Performed By: #### L 500.4050, L506.1001, L100.0100, L500.4100 #### [facility] [address] [place], [address] MCV (RBC) [Entitic vol] 88.9 fL Normal 80-94 [facility] Comment on above: Performed By: #### L 500.4050, L506.1001, L100.0100, L500.4100 #### [facility] [address] [place], [address] Monocytes/100 WBC (Bld) 10.7 % High 0-10 [facility] Comment on above: Performed By: #### L 500.4050, L506.1001, L100.0100, L500.4100 #### [facility] [address] [place], [address] Neutrophils/100 WBC (Bld) 50.8 % Normal 47-70 [facility] Comment on above: Performed By: #### L 500.4050, L506.1001, L100.0100, L500.4100 #### [facility] [address] [place], [address] Nucleated RBC (Bld) [#/Vol] 0 10*3/uL Normal 0-5 [facility] Comment on above: Performed By: #### L 500.4050, L506.1001, L100.0100, L500.4100 #### [facility] [address] [place], [address] Platelet mean volume (Bld) [Entitic vol] 10.0 fL Normal 6.2-12.0 [facility] Comment on above: Performed By: #### L 500.4050, L506.1001, L100.0100, L500.4100 #### [facility] [address] [place], [address] Platelets (Bld) [#/Vol] 268 10*3/uL Normal 150-450 [facility] Comment on above: Performed By: #### L 500.4050, L506.1001, L100.0100, L500.4100 #### [facility] [address] [place], [address] RBC (Bld) [#/Vol] 4.87 10*6/uL Normal 4.6-6.2 [facility] Comment on above: Performed By: #### L 500.4050, L506.1001, L100.0100, L500.4100 #### [facility] [address] [place], [address] RDW SD 50.4 fl High 35.1-43.9 [facility] Comment on above: Performed By: #### L 500.4050, L506.1001, L100.0100, L500.4100 #### [facility] [address] [place], [address] WBC (Bld) [#/Vol] 8.5 10*3/uL Normal 4.4-11.0 [facility] Comment on above: Performed By: #### L 500.4050, L506.1001, L100.0100, L500.4100 #### [facility] [address] [place], [address] Calculated very low density lipoprotein (VLDL) cholesterol measurementOrdered By: Pamelayesy Hernandez on 12-02-2024 Calculated very low density lipoprotein (VLDL) cholesterol measurement 21 mg/dL 5-40 [facility] Carbon dioxide, total [Moles /volume] in Central venous bloodOrdered By: Pamela Mary on 12-02-2024 CO2 [Moles/Vol] 25.3 mmol/L 21.0-32.0 [facility] Chloride assayOrdered By: Hitesh Hernandez on 12-02-2024 Chloride [Moles/Vol] 105 mmol/L 98-108 [facility] Comprehensive Metabolic Prof ilon 12-02-2024 Albumin [Mass/Vol] 4.1 g/dL Normal 3.4-4.8 [facility] Comment on above: Performed By: #### L 500.4050, L506.1001, L100.0100, L500.4100 #### [facility] [address] [place], [address] Albumin/Globulin [Mass ratio] 1.3 {ratio} Normal 0.9-2.4 [facility] Comment on above: Performed By: #### L 500.4050, L506.1001, L100.0100, L500.4100 #### [facility] [address] [place], [address] ALK PHOS 61 U/L Normal 40-129 [facility] Comment on above: Performed By: #### L 500.4050, L506.1001, L100.0100, L500.4100 #### [facility] [address] [place], [address] ALT [Catalytic activity/Vol] 21 U/L Normal <=46 [facility] Comment on above: Performed By: #### L 500.4050, L506.1001, L100.0100, L500.4100 #### [facility] [address] [place], [address] AST [Catalytic activity/Vol] 20 U/L Normal <=37 [facility] Comment on above: Performed By: #### L 500.4050, L506.1001, L100.0100, L500.4100 #### [facility] [address] [place], [address] Bilirubin [Mass/Vol] 0.40 mg/dL Normal 0.00-1.30 [facility] Comment on above: Performed By: #### L 500.4050, L506.1001, L100.0100, L500.4100 #### [facility] [address] [place], [address] BUN/CRE 14.1 RATIO Normal 10-20 [facility] Comment on above: Performed By: #### L 500.4050, L506.1001, L100.0100, L500.4100 #### [facility] [address] [place], [address] Calcium [Mass/Vol] 9.9 mg/dL Normal 7.6-11.0 [facility] Comment on above: Performed By: #### L 500.4050, L506.1001, L100.0100, L500.4100 #### [facility] [address] [place], [address] Chloride [Moles/Vol] 105 mmol/L Normal 98-108 [facility] Comment on above: Performed By: #### L 500.4050, L506.1001, L100.0100, L500.4100 #### [facility] [address] [place], [address] CO2 [Moles/Vol] 25.3 mmol/L Normal 21.0-32.0 [facility] Comment on above: Performed By: #### L 500.4050, L506.1001, L100.0100, L500.4100 #### [facility] [address] [place], [address] Creatinine [Mass/Vol] 0.86 mg/dL Normal 0.70-1.20 [facility] Comment on above: Performed By: #### L 500.4050, L506.1001, L100.0100, L500.4100 #### [facility] [address] [place], [address] GAP 10 Normal 5-15 [facility] Comment on above: Performed By: #### L 500.4050, L506.1001, L100.0100, L500.4100 #### [facility] [address] [place], [address] GFR/1.73 sq M.predicted among non-blacks MDRD (S/P/Bld) [Vol rate/Area] 98 mL/min/{1.73_m2} Normal >60 [facility] Comment on above: Result Comment: mL/m in/1.73m2 CKD-EPI Creatinine Equation (2020) Performed By: #### L 500.4050, L506.1001, L100.0100, L500.4100 #### [facility] [address] [place], [address] Globulin (S) [Mass/Vol] 3.2 g/dL Normal 2.2-4.2 [facility] Comment on above: Performed By: #### L 500.4050, L506.1001, L100.0100, L500.4100 #### [facility] [address] [place], [address] Glucose [Mass/Vol] 104 mg/dL High 70-99 [facility] Comment on above: Performed By: #### L 500.4050, L506.1001, L100.0100, L500.4100 #### [facility] [address] [place], [address] Potassium [Moles/Vol] 4.8 mmol/L Normal 3.3-5.1 [facility] Comment on above: Performed By: #### L 500.4050, L506.1001, L100.0100, L500.4100 #### [facility] [address] [place], [address] Sodium [Moles/Vol] 141 mmol/L Normal 133-145 [facility] Comment on above: Performed By: #### L 500.4050, L506.1001, L100.0100, L500.4100 #### [facility] [address] [place], [address] T PROT 7.3 g/dL Normal 5.9-8.4 [facility] Comment on above: Performed By: #### L 500.4050, L506.1001, L100.0100, L500.4100 #### [facility] [address] [place], [address] Urea nitrogen [Mass/Vol] 12 mg/dL Normal 4-19 [facility] Comment on above: Performed By: #### L 500.4050, L506.1001, L100.0100, L500.4100 #### [facility] [address] [place], [address] Eosinophil percentageOrdered By: Pamela Hernandez on 12-02-2024 Eosinophils/100 WBC (Bld) 3.4 % 0-5 [facility] Erythrocyte distribution wid th ratioOrdered By: Pamela Hernandez on 12-02-2024 Erythrocyte distribution width (RBC) [Ratio] 15.3 % High 11.6-14.6 [facility] Erythrocyte distribution wid th standard deviationOrdered By: Pamela Hernandez on 12-02-2024 Erythrocyte distribution width (RBC) [Ratio] 50.4 fl High 35.1-43.9 [facility] Glomerular filtration rate ( GFR) estimation/1.73 sq m using serum, plasma, or whole bOrdered By: Pamela Hernandez on 12-02-2024 GFR/1.73 sq M.predicted among non-blacks MDRD (S/P/Bld) [Vol rate/Area] 98 mL/min/{1.73_m2} >60 [facility] Comment on above: mL/min/1.73m2 CKD-EP I Creatinine Equation (2020) Hematocrit Auto (Bld) [Volum e fraction]Ordered By: Pamela Hernandez on 12-02-2024 Hematocrit (Bld) [Volume fraction] 43.3 % 40-54 [facility] Hemoglobin measurementOrdere d By: Pamela Hernandez on 12-02-2024 Hemoglobin (Bld) [Mass/Vol] 14.4 g/dL 13.0-16.5 [facility] Immature granulocytes/100 WB C Auto (Bld)Ordered By: Pamela Hernandez on 12-02-2024 Immature granulocytes/100 WBC (Bld) 0.400 % 0.0-0.9 [facility] Comment on above: IG% - Immature Granu locytes (promyelocytes, myelocytes and metamyelocytes) > 1% indicates that a LEFT SHIFT is Present. LDL calc ser/plasOrdered By: Pamela Hernandez on 12-02-2024 Cholesterol in LDL [Mass/Vol] 71 mg/dL [facility] Comment on above: Ppgumhkpua=795-530 m g/dL & Higher Tosc=146 mg/dL or greater Laboratory - Chemistry and C hemistry - challengeOrdered By: Pamela Hernandez on 12-02-2024 AST [Catalytic activity/Vol] 20 U/L <38 [facility] Lipid Profileon 12-02-2024 CHOL:HDL 2.92 Normal [facility] Comment on above: Performed By: #### L 500.4050, L506.1001, L100.0100, L500.4100 #### [facility] [address] [place], [address] Cholesterol [Mass/Vol] 140 mg/dL Normal <=200 [facility] Comment on above: Result Comment: Chol esterol level, Desirable <200 mg/dL Borderline high cholesterol 200-239 mg/dL High cholesterol >=240 mg/dL Recommendations of the NCEP Adult Treatment Panel for the following risk-cutoff thresholds for the [place] population. Performed By: #### L 500.4050, L506.1001, L100.0100, L500.4100 #### [facility] [address] [place], [address] Cholesterol in HDL [Mass/Vol] 48 mg/dL Normal [facility] Comment on above: Result Comment: Jenn onal Cholesterol Education Program (NCEP) guidelines: <40 mg/dL: Low HDL-cholesterol (major risk factor for CHD) >= 60 mg/dL: High HDL-cholesterol (negative risk factor for CHD) HDL-cholesterol is affected by a number of factors, e.g. smoking, exercise, hormones, sex and age. Performed By: #### L 500.4050, L506.1001, L100.0100, L500.4100 #### [facility] [address] [place], [address] Cholesterol in LDL [Mass/Vol] 71 mg/dL Normal [facility] Comment on above: Result Comment: Bord ohczvn=753-272 mg/dL Higher Xpju=427 mg/dL or greater Performed By: #### L 500.4050, L506.1001, L100.0100, L500.4100 #### [facility] [address] [place], [address] Cholesterol in VLDL [Mass/Vol] 21 mg/dL Normal 5-40 [facility] Comment on above: Performed By: #### L 500.4050, L506.1001, L100.0100, L500.4100 #### [facility] [address] [place], [address] Triglyceride [Mass/Vol] 107 mg/dL Normal [facility] Comment on above: Result Comment: The drugs N-Acetylcysteine and Metamizole may falsely depress this assay. Normal range: <150 mg/dL Borderline High: 150-199 mg/dL High: 200-499 mg/dL Very High: >500 mg/dL Performed By: #### L 500.4050, L506.1001, L100.0100, L500.4100 #### [facility] [address] [place], [address] MCV (mean corpuscular volume ) determinationOrdered By: Pamela Hernandez on 12-02-2024 MCV (RBC) [Entitic vol] 88.9 fL 80-94 [facility] Mean corpuscular hemoglobin (MCH) determinationOrdered By: Pamela Hernandez on 12-02-2024 MCH (RBC) [Entitic mass] 29.6 pg 27.0-32.0 [facility] Mean corpuscular hemoglobin concentration (MCHC) determinationOrdered By: Pamela Hernandez on 12-02-2024 MCHC (RBC) [Mass/Vol] 33.3 g/dL 32-36 [facility] Mean platelet volume determi nationOrdered By: Pamela Hernandez on 12-02-2024 Platelet mean volume (Bld) [Entitic vol] 10.0 fL 6.2-12.0 [facility] Monocyte percentageOrdered B y: Pamela Hernandez on 12-02-2024 Monocytes/100 WBC (Bld) 10.7 % High 0-10 [facility] Neutrophil percentageOrdered By: Pamela Hernandez on 12-02-2024 Neutrophils/100 WBC (Bld) 50.8 % 47-70 [facility] Nucleated red blood cell per centageOrdered By: Pamela Hernandez on 12-02-2024 Nucleated RBC/100 WBC (Bld) [Ratio] 0 % 0-5 [facility] Platelet countOrdered By: Hitesh Hernandez on 12-02-2024 Platelets (Bld) [#/Vol] 268 10*3/uL 150-450 [facility] Potassium measurement (mass/ volume)Ordered By: Pamela Hernandez on 12-02-2024 Potassium (Unsp spec) [Mass/Vol] 4.8 mmol/L 3.3-5.1 [facility] RBC Auto (Bld) [#/Vol]Ordere d By: Pamela Hernandez on 12-02-2024 RBC (Bld) [#/Vol] 4.87 10*6/uL 4.6-6.2 [facility] Screening total cholesterol/ high density lipoprotein (HDL) cholesterol ratioOrdered By: Pamela Hernandez on 12-02-2024 Cholesterol.total/Chol esterol in HDL [Mass ratio] 2.92 {ratio} [facility] Serum creatinine measurement (mass/volume)Ordered By: Pamela Hernandez on 12-02-2024 Creatinine [Mass/Vol] 0.86 mg/dL 0.70-1.20 [facility] Serum globulin measurementOr dered By: Pamela Hernandez on 12-02-2024 Globulin (S) [Mass/Vol] 3.2 g/dL 2.2-4.2 [facility] Serum glucose measurement (m ass/volume)Ordered By: Pamela Hernandez on 12-02-2024 Glucose [Mass/Vol] 104 mg/dL High 70-99 [facility] Serum or plasma alanine ayala otransferase (ALT) measurementOrdered By: Pamela Hernandez on 12-02-2024 ALT [Catalytic activity/Vol] 21 U/L <47 [facility] Serum or plasma albumin jessica urement (mass/volume)Ordered By: Pamela Hernandez on 12-02-2024 Albumin [Mass/Vol] 4.1 g/dL 3.4-4.8 [facility] Serum or plasma albumin/glob ulin mass ratioOrdered By: Pamela Hernandez on 12-02-2024 Albumin/Globulin [Mass ratio] 1.3 {ratio} 0.9-2.4 [facility] Serum or plasma alkaline jasmina sphatase measurementOrdered By: Pamela Hernadnez on 12-02-2024 ALP [Catalytic activity/Vol] 61 U/L 40-129 [facility] Serum or plasma calcium jessica urement (mass/volume)Ordered By: Pamela Hernandez on 12-02-2024 Calcium [Mass/Vol] 9.9 mg/dL 7.6-11.0 [facility] Serum or plasma cholesterol in HDL measurement (mass/volume)Ordered By: Pamela Hernandez on 12-02-2024 Cholesterol in HDL [Mass/Vol] 48 mg/dL >40 [facility] Comment on above: National Cholesterol Education Program (NCEP) guidelines:<40 mg/dL: Low HDL-cholesterol (major risk factor for CHD)>= 60 mg/dL: High HDL-cholesterol (negative risk factor for CHD)HDL-cholesterol is affected by a number of factors, e.g. smoking, exercise, hormones, sex and age. Serum or plasma cholesterol measurement (mass/volume)Ordered By: Pamela Hernandez on 12-02-2024 Cholesterol [Mass/Vol] 140 mg/dL <201 [facility] Comment on above: Cholesterol level, D esirable <200 mg/dLBorderline high cholesterol 200-239 mg/dLHigh cholesterol >=240 mg/dLRecommendations of the NCEP Adult Treatment Panel for the following risk-cutoff thresholds for the [place] population. Serum or plasma urea nitroge n measurement (mass/volume)Ordered By: Pamela Hernandez on 12-02-2024 Urea nitrogen [Mass/Vol] 12 mg/dL 4-19 [facility] Sodium levelOrdered By: Awilda Hernnadez on 12-02-2024 Sodium [Moles/Vol] 141 mmol/L 133-145 [facility] Total proteinOrdered By: Lencho Hernandez on 12-02-2024 Protein [Mass/Vol] 7.3 g/dL 5.9-8.4 [facility] Triglycerides measurementOrd ered By: Pamela Hernandez on 12-02-2024 Triglyceride [Mass/Vol] 107 mg/dL <199 [facility] Comment on above: The drugs N-Acetylcy steine and Metamizole may falsely depress this assay. Normal range: <150 mg/dLBorderline High: 150-199 mg/dLHigh: 200-499 mg/dLVery High: >500 mg/dL Vitamin D,25 Hydroxyon 12-02 Vitamin D 25-OH 30.5 ng/mL Normal 30-100 [facility] Comment on above: Result Comment: Leatha min D Status Deficiency: <20 ng/mL (50nmol/L) Insufficiency: 20-30 ng/mL (50-75 nmol/L) Sufficiency: 30-100 ng/mL (75-250 nmol/L) Toxicity: >100 ng/mL (>250 nmol/L) Performed By: #### L 500.4050, L506.1001, L100.0100, L500.4100 #### [facility] [address] [place], [address] White blood cell (WBC) count Ordered By: Pamela Hernandez on 12-02-2024 WBC (Bld) [#/Vol] 8.5 10*3/uL 4.4-11.0 [facility] Internal Medicine Office Vis iton 11-26-2024 Internal Medicine Office Visit [facility] [address] [place] [address] [place] [address] OFFICE VISIT Date of Service: 11/30/24 MR#: [id number] Acct: [id number] Name: ILDEFONSO ROCHA Rep #: [id number] : 1960 Provider: Dr. 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 VIRAL-7 BMS VIRAL-7 Feeling nervous, anxious, or [...] happ (more content not included)... Normal [facility] Hepatic function 2000 panelo n 10-29-2023 Albumin BCP dye [Mass/Vol] 4.4 g/dL Normal 3.4-5.0 [facility] Comment on above: Performed By: #### T HYDS #### CE OSWALDER L (21248) [facility]) [address] [place] [address] ALP [Catalytic activity/Vol] 59 U/L Normal 33-136 [facility] Comment on above: Performed By: #### T HYDS #### CE SHRESTHAMOMOEER L (84160) [facility]) [address] [place] [address] ALT With P-5'-P [Catalytic activity/Vol] 21 U/L Normal 10-52 [facility] Comment on above: Result Comment: Perla ents treated with Sulfasalazine may generate falsely decreased results for ALT. Performed By: #### T HYDS #### CE SHRESTHAMOTZER L (38282) [facility]) [address] [place] [address] AST With P-5'-P [Catalytic activity/Vol] 15 U/L Normal 9-39 [facility] Comment on above: Performed By: #### T HYDS #### CE SHRESTHAMOTZER L (54130) [facility]) [address] [place] [address] Bilirubin [Mass/Vol] 0.5 mg/dL Normal 0.0-1.2 [facility] Comment on above: Performed By: #### T HYDS #### CE SHRESTHAMOTZER L (53194) [facility]) [address] [place] [address] Bilirubin.direct [Mass/Vol] 0.1 mg/dL Normal 0.0-0.3 [facility] Comment on above: Performed By: #### T HYDS #### CE Ascencio (86131) [facility]) [address] [place] [address] Protein [Mass/Vol] 7.3 g/dL Normal 6.4-8.2 [facility] Comment on above: Performed By: #### T HYDS #### CE Ascencio (27810) [facility]) [address] [place] [address] Lipid 1996 panelon 4 Cholesterol [Mass/Vol] 157 mg/dL Normal 0-199 [facility] Comment on above: Result [...] By: #### T HYDS #### CE Ascencio (39209) [facility]) [address] [place] [address] Cholesterol in HDL [Mass/Vol] 46.7 mg/dL Normal [facility] Comment on above: Result Comment: Age Very Low Low Normal High 0-19 Y < 35 < 40 40-45 ---- 20-24 Y ---- < 40 >45 ---- >24 Y ---- < 40 40-60 >60 Performed By: #### T HYDS #### CE Ascencio (25592) [facility]) [address] [place] [address] Cholesterol in LDL [Mass/Vol] 84 mg/dL Normal <=99 [facility] Comment on above: Result Comment: Near Borderline AGE Desirable Optimal High High Very High 0-19 Y 0 - 109 --- 110-129 >/= 130 ---- 20-24 Y 0 - 119 --- 120-159 >/= 160 ---- >24 Y 0 - 99 100-129 130-159 160-189 >/=190 Performed By: #### T HYDS #### CE Ascencio (05343) [facility]) [address] [place] [address] Cholesterol in VLDL [Mass/Vol] 26 mg/dL Normal 0-40 [facility] Comment on above: Performed By: #### T HYDS #### CE Ascencio (11239) [facility]) [address] [place] [address] CHOLESTEROL/HDL RATIO 3.4 Normal [facility] Comment on above: Result Comment: Ref Values Desirable < 3.4 High Risk > 5.0 Performed By: #### T HYDS #### CE Ascencio (81533) [facility]) [address] [place] [address] NON HDL CHOLESTEROL 110 mg/dL Normal 0-149 [facility] Comment on above: Result Comment: Age Desirable Borderline High High Very High 0-19 Y 0 - 119 120 - 144 >/= 145 >/= 160 20-24 Y 0 - 149 150 - 189 >/= 190 ---- >24 Y 30 mg/dL above LDL Cholesterol goal Performed By: #### T HYDS #### CE Ascencio (85571) [facility]) [address] [place] [address] Triglyceride [Mass/Vol] 130 mg/dL Normal 0-149 [facility] Comment on above: Result [...] By: #### T CIRA #### CE Ascencio (93543) [facility]) [address] [place] [address] [place].doppler Carotid arteries - bilateralon 09-23-2023 [facility] [address], [address], [place], [place] [address] and Vascular Lab Report [facility] US CAROTID ARTERY DUPLEX BILATERAL Patient Name: ILDEFONSO FATIMANEREIDA Reading Physician: [id number] Warren Caldwell MD Study Date: 09/23/2023 Ordering Physician: [id number] OPAL MEDINA MRN/PID: [id number] Technologist: Alessia Hart [facility] Technologist 2: Date of /Age: 11 1960 / 63 years Gender: M Admission Status: Outpatient Location Performed: [facility] Diagnosis/ICD: Syncope and collapse-R55 Indication: Syncope CPT Codes: 76135 Cerebrovascular Carotid Duplex scan complete CONCLUSIONS: Right [...] cm/s Right Left ICA/CCA Ratio 1.6 0.9 30456 Warren Caldwell MD Final Warren Barajas MD - 09/23/[address], [address], [place] [address] and Vascular Lab Report [facility] US CAROTID ARTERY DUPLEX BILATERAL Patient Name: SARAHVERONICA JOSEFINA Reading Physician: [id number] Caldwell MD Study Date: 09/23/2023 Ordering Physician: [id number] OPAL MEDINA MRN/PID: [id number] Technologist: Alessia Hart RVT Technologist 2: Date of /Age: 11 1960 / 63 years Gender: M Admission Status: Outpatient Location Performed: [facility] Diagnosis/ICD: Syncope and collapse-R55 Indication: Syncope CPT Codes: 78680 Cerebrovascular Carotid Duplex scan complete CONCLUSIONS: Right [...] cm/s Right Left ICA/CCA Ratio 1.6 0.9 99415 Warren Caldwell MD Final [facility] Work Phone: Radiology Study observation (narrative) [facility] Work Phone: US.doppler Carotid arteries - bilateralOrdered By: Warren Caldwell on 09-23-2023 [facility] Work Phone: [facility] US CAROTID ARTERY DUPLE X BILATERALon 09-23-2023 [facility] US CAROTID ARTERY DUPLEX BILATERAL [address], [address] [address] and Vascular Lab Report [facility] US CAROTID ARTERY DUPLEX BILATERAL Patient Name: ILDEFONSO ROCHA Reading Physician: [id number] Warren Caldwell MD Study Date: 09/23/2023 Ordering Physician: [id number] OPAL MEDINA MRN/PID: [id number] Technologist: Alessia Hart T Technologist 2: Date of /Age: 11 1960 / 63 years Gender: M Admission Status: Outpatient Location Performed: [facility] Diagnosis/ICD: Syncope and collapse-R55 Indication: Syncope CPT Codes: 64186 Cerebrovascular Carotid Duplex scan complete CONCLUSIONS: Right [...] cm/s Right Left ICA/CCA Ratio 1.6 0.9 29389 Warren Caldwell MD Final [facility] CT HEAD WO IV CONTRASTon CT HEAD WO IV CONTRAST Interpreted By: Anneliese Mckeon, STUDY: CT HEAD WO IV CONTRAST; 09/04/2023 11:15 am INDICATION: Signs/Symptoms:headache and sycope. COMPARISON: None. ACCESSION NUMBER(S): [id number] ORDERING CLINICIAN: OPAL MEDINA TECHNIQUE: Noncontrast axial [...] Anneliese Garza 09/04/2023 11:25 AM Dictation workstation: [id number] [facility] CT Head WO contraston 2023 1. [...] Anneliese Garza 09/04/2023 11:25 AM Dictation workstation: [id number] [facility] Interpreted By: Anneliese Barrera, STUDY: CT HEAD WO IV CONTRAST; 09/04/2023 11:15 am INDICATION: Signs/Symptoms:headache and sycope. COMPARISON: None. ACCESSION NUMBER(S): [id number] ORDERING CLINICIAN: OPAL MEDINA TECHNIQUE: Noncontrast axial [...] Signs/Symptoms:headache and sycope. COMPARISON: None. ACCESSION NUMBER(S): [id number] ORDERING CLINICIAN: OPAL MEDINA TECHNIQUE: Noncontrast axial [...] Anneliese Garza 09/04/2023 11:25 AM Dictation workstation: [id number] [facility] Work Phone: Radiology Study observation (narrative) [facility] Work Phone: CT Head WO contrastOrdered B y: Anneliese Kayla on 09-04-2023 [facility] Work Phone: Comprehensive metabolic 2000 panelon 08-26-2023 Albumin BCP dye [Mass/Vol] 4.4 g/dL Normal 3.4-5.0 [facility] Comment on above: Performed By: #### 2 4323-8 #### CE Ascencio (54605) [facility]) [address] [place] [address] ALP [Catalytic activity/Vol] 66 U/L Normal 33-136 [facility] Comment on above: Performed By: #### 2 4323-8 #### CE Ascencio (05957) [facility]) [address] [place] [address] ALT With P-5'-P [Catalytic activity/Vol] 20 U/L Normal 10-52 [facility] Comment on above: Result Comment: Perla ents treated with Sulfasalazine may generate falsely decreased results for ALT. Performed By: #### 2 4323-8 #### CE Ascencio (04765) [facility]) [address] [place] [address] Anion gap [Moles/Vol] 11 mmol/L Normal 10-20 [facility] Comment on above: Performed By: #### 2 4323-8 #### CE Ascencio (90095) [facility]) [address] [place] [address] 00971 AST With P-5'-P [Catalytic activity/Vol] 14 U/L Normal 9-39 [facility] Comment on above: Performed By: #### 2 4323-8 #### CE Ascencio (19003) [facility]) [address] [place] [address] Bilirubin [Mass/Vol] 0.4 mg/dL Normal 0.0-1.2 [facility] Comment on above: Performed By: #### 2 4323-8 #### CE CAMPBELL L (00537) [facility]) [address] [place] [address] Calcium [Mass/Vol] 9.7 mg/dL Normal 8.6-10.6 [facility] Comment on above: Performed By: #### 2 4323-8 #### CE OSWALDER L (11528) [facility]) [address] [place] [address] Chloride [Moles/Vol] 102 mmol/L Normal 98-107 [facility] Comment on above: Performed By: #### 2 4323-8 #### CE OSWALDER L (20208) [facility]) [address] [place] [address] CO2 [Moles/Vol] 29 mmol/L Normal 21-32 [facility] Comment on above: Performed By: #### 2 4323-8 #### CE CAMPBELL L (52589) [facility]) [address] [place] [address] Creatinine [Mass/Vol] 0.87 mg/dL Normal 0.50-1.30 [facility] Comment on above: Performed By: #### 2 4323-8 #### CE OSWALDER L (64024) [facility]) [address] [place] [address] GFR/1.73 sq M.predicted MDRD (S/P/Bld) [Vol rate/Area] mL/min/{1.73_m2} Normal >60 [facility] Comment on above: Result Comment: Calc ulations of estimated GFR are performed using the 2020 CKD-EPI Study Refit equation without the race variable for the IDMS-Traceable creatinine methods. https://jasn.asnjournals.org/content///ASN.79545 06649 Performed By: #### 2 4323-8 #### CE Ascencio (47653) [facility] ([facility]) [address] [place] [address] Glucose [Mass/Vol] 90 mg/dL Normal 74-99 [facility] Comment on above: Performed By: #### 2 4323-8 #### CE Ascencio (25025) [facility]) [address] [place] [address] Potassium [Moles/Vol] 4.0 mmol/L Normal 3.5-5.3 [facility] Comment on above: Performed By: #### 2 4323-8 #### CE Ascencio (85273) [facility]) [address] [place] [address] Protein [Mass/Vol] 7.4 g/dL Normal 6.4-8.2 [facility] Comment on above: Performed By: #### 2 4323-8 #### CE Ascencio (41660) [facility]) [address] [place] [address] Sodium [Moles/Vol] 138 mmol/L Normal 136-145 [facility] Comment on above: Performed By: #### 2 4323-8 #### CE Ascencio (47921) [facility]) [address] [place] [address] Urea nitrogen [Mass/Vol] 18 mg/dL Normal 6-23 [facility] Comment on above: Performed By: #### 2 4323-8 #### CE Ascencio (70444) [facility]) [address] [place] [address]683 Magnesiumon 08-26-2023 Magnesium [Mass/Vol] 2.06 mg/dL Normal 1.60-2.40 [facility] Comment on above: Performed By: #### 1 9123-9 #### CE Ascencio (62352) [facility]) [address] [place] [address] TRANSTHORACIC ECHO (TTE) FADY Gonzalez 08-14-2023 TRANSTHORACIC ECHO (TTE) [facility], [address] [place] [address], [address], [place], [place] [address] and TRANSTHORACIC ECHOCARDIOGRAM REPORT Patient Name: ILDEFONSO Shelton Physician: [id number] Savita ROCHA Study Date: 08/14/2023 Ordering Provider: [id number] OPAL MEDINA MRN/PID: [id number] Fellow: Nurse: Ela Hernandez RN Date of /Age: 11 1960 Rn Critical Care: Raine Kelly RDCS years Gender: M Additional Staff: Height: 172.72 cm Admit Date: Weight: 127.46 kg Admission Status: Outpatient BSA / BMI: 2.36 m2 / 42.73 kg/m2 Department Location: [facility] Blood Pressure: 125 /85 mmHg Study Type: TRANSTHORACIC ECHO (TTE) LIMITED Diagnosis/ICD: Syncope-R55 Indication: Syncope CPT Code: Echo Limited-42480; Doppler Limited-35089; Color Doppler-04797 Patient History: BMI: Obese >30 Pertinent History: [...] TAPSE: 20.2 mm RV s' 0.14 m/s 51648 Savita Vann MD Electronically signed on 08/14/2023 at 10:31:59 PM Final [facility] US Heart TransthoracicOrdere d By: Savita Vann on 08-14-2023 Aortic Valve Area by Continuity of Peak Velocity 3.03 cm2 [facility] Work Phone: [phone] AV pk grad 8.4 mmHg [facility] Work Phone: [phone] AV pk jabari 1.45 m/s [facility] Work Phone: [phone] LV A4C EF 65.7 [facility] Work Phone: [phone] LV Biplane EF 64 % [facility] Work Phone: [phone] LVOT diam 2.10 cm [facility] Work Phone: [phone] MV avg E/e' ratio 4.08 [facility] Work Phone: [phone] RV free wall pk S' 14.00 cm/s [facility] Work Phone: [phone] Tricuspid annular plane systolic excursion 2.0 cm [facility] Work Phone: [phone] [facility] Work Phone: [phone] US Heart Transthoracicon [facility], [address] [place] [address], [address] [address] and TRANSTHORACIC ECHOCARDIOGRAM REPORT Patient Name: ILDEFONSO Shelton Physician: [id number] Savita ROCHA Study Date: 08/14/2023 Ordering Provider: [id number] OPAL MEDINA MRN/PID: [id number] Fellow: Nurse: Ela Hernandez RN Date of /Age: 11 1960 Rn Critical Care: Raine Kelly RDCS years Gender: M Additional Staff: Height: 172.72 cm Admit Date: Weight: 127.46 kg Admission Status: Outpatient BSA / BMI: 2.36 m2 / 42.73 kg/m2 Department Location: [facility] Blood Pressure: 125 /85 mmHg Study Type: TRANSTHORACIC ECHO (TTE) LIMITED Diagnosis/ICD: Syncope-R55 Indication: Syncope CPT Code: Echo Limited-71678; Doppler Limited-97678; Color Doppler-78121 Patient History: BMI: Obese >30 Pertinent History: [...] TAPSE: 20.2 mm RV s' 0.14 m/s 80505 Savita Vann MD Electronically signed on 08/14/2023 at 10:31:59 PM Final Savita Amanda MD - 08/14/2023 [facility], [address] [place] [address], [address] [address] and TRANSTHORACIC ECHOCARDIOGRAM REPORT Patient Name: ILDEFONSO Shelton Physician: [id number] Savita Vann MD [facility] Study Date: 08/14/2023 Ordering Provider: [id number] OPAL MEDINA MRN/PID: [id number] Fellow: Nurse: Ela Hernandez RN Date of /Age: 11 1960 Rn Critical Care: Raine Kelly RDCS years Gender: M Additional Staff: Height: 172.72 cm Admit Date: Weight: 127.46 kg Admission Status: Outpatient BSA / BMI: 2.36 m2 / 42.73 kg/m2 Department Location: [facility] Blood Pressure: 125 /85 mmHg Study Type: TRANSTHORACIC ECHO (TTE) LIMITED Diagnosis/ICD: Syncope-R55 Indication: Syncope CPT Code: Echo Limited-10758; Doppler Limited-56310; Color Doppler-12417 Patient History: BMI: Obese >30 Pertinent History: [...] TAPSE: 20.2 mm RV s' 0.14 m/s 75593 Savita Vann MD Electronically signed on 08/14/2023 at 10:31:59 PM Final [facility] Work Phone: CBC panel Auto (Bld)on 07-01 Erythrocyte distribution width (RBC) [Ratio] 15.8 % High 11.5-14.5 [facility] Comment on above: Performed By: #### 5 8410-2 #### CE Ascencio (66969) [facility]) [address] [place] [address] Hematocrit (Bld) [Volume fraction] 45.3 % Normal 41.0-52.0 [facility] Comment on above: Performed By: #### 5 8410-2 #### CE Ascencio (93185) [facility]) [address] [place] [address] Hemoglobin (Bld) [Mass/Vol] 15.2 g/dL Normal 13.5-17.5 [facility] Comment on above: Performed By: #### 5 8410-2 #### CE Ascencio (02490) [facility]) [address] [place] [address]874 MCH (RBC) [Entitic mass] 29.4 pg Normal 26.0-34.0 [facility] Comment on above: Performed By: #### 5 8410-2 #### CE Ascencio (18070) [facility]) [address] [place] [address] MCHC (RBC) [Mass/Vol] 33.6 g/dL Normal 32.0-36.0 [facility] Comment on above: Performed By: #### 5 8410-2 #### CE Ascencio (21095) [facility]) [address] [place] [address] MCV (RBC) [Entitic vol] 88 fL Normal 80-100 [facility] Comment on above: Performed By: #### 5 8410-2 #### CE Ascencio (78384) [facility]) [address] [place] [address] Nucleated RBC/100 WBC (Bld) [Ratio] 0.0 /100 WBCs Normal 0.0-0.0 [facility] Comment on above: Performed By: #### 5 8410-2 #### CE Ascencio (02141) [facility]) [address] [place] [address]86 Platelets (Bld) [#/Vol] 302 x10*3/uL Normal 150-450 [facility] Comment on above: Performed By: #### 5 8410-2 #### CE Ascencio (83778) [facility]) [address] [place] [address] 21931 RBC (Bld) [#/Vol] 5.17 x10*6/uL Normal 4.50-5.90 [facility] Comment on above: Performed By: #### 5 8410-2 #### CE Ascencio (47231) [facility]) [address] [place] [address]242 WBC (Bld) [#/Vol] 9.6 x10*3/uL Normal 4.4-11.3 [facility] Comment on above: Performed By: #### 5 8410-2 #### CE Ascencio (98807) [facility]) [address] [place] [address] 57898 Calcidiolon 07-01-2023 25-hydroxyvitamin D3 [Mass/Vol] 38 ng/mL Normal 30-100 [facility] Comment on above: Order Comment: Defic iency: < 20 ng/ml Insufficiency: 20-29 ng/ml Sufficiency: 30-100 ng/ml This assay accurately quantifies the sum of Vitamin D3, 25-Hydroxy and Vitamin D2,25-Hydroxy. Performed By: #### 1 989-3 #### CE Ascencio (85283) [facility]) [address] [place] [address] Comprehensive metabolic 2000 panelon 07-01-2023 Albumin BCP dye [Mass/Vol] 4.5 g/dL Normal 3.4-5.0 [facility] Comment on above: Performed By: #### 2 4323-8 #### CE Ascencio (94184) [facility]) [address] [place] [address] 99154 ALP [Catalytic activity/Vol] 59 U/L Normal 33-136 [facility] Comment on above: Performed By: #### 2 4323-8 #### CE Ascencio (91222) [facility]) [address] [place] [address] 12298 ALT With P-5'-P [Catalytic activity/Vol] 19 U/L Normal 10-52 [facility] Comment on above: Result Comment: Perla ents treated with Sulfasalazine may generate falsely decreased results for ALT. Performed By: #### 2 4323-8 #### CE Ascencio (53514) [facility]) [address] [place] [address]44 Anion gap [Moles/Vol] 15 mmol/L Normal 10-20 [facility] Comment on above: Performed By: #### 2 4323-8 #### CE Ascencio (50559) [facility]) [address] [place] [address] 39790 AST With P-5'-P [Catalytic activity/Vol] 12 U/L Normal 9-39 [facility] Comment on above: Performed By: #### 2 4323-8 #### CE Ascencio (88550) [facility]) [address] [place] [address] 10029 Bilirubin [Mass/Vol] 0.4 mg/dL Normal 0.0-1.2 [facility] Comment on above: Performed By: #### 2 4323-8 #### CE Ascencio (01679) [facility]) [address] [place] [address] Calcium [Mass/Vol] 10.2 mg/dL Normal 8.6-10.6 [facility] Comment on above: Performed By: #### 2 4323-8 #### CE CAMPBELL L (62059) [facility]) [address] [place] [address] Chloride [Moles/Vol] 101 mmol/L Normal 98-107 [facility] Comment on above: Performed By: #### 2 4323-8 #### CE CAMPBELL L (96650) [facility]) [address] [place] [address] CO2 [Moles/Vol] 28 mmol/L Normal 21-32 [facility] Comment on above: Performed By: #### 2 4323-8 #### CE CAMPBELL L (94297) [facility]) [address] [place] [address] Creatinine [Mass/Vol] 0.78 mg/dL Normal 0.50-1.30 [facility] Comment on above: Performed By: #### 2 4323-8 #### CE CAMPBELL L (21485) [facility]) [address] [place] [address] GFR/1.73 sq M.predicted MDRD (S/P/Bld) [Vol rate/Area] mL/min/{1.73_m2} Normal >60 [facility] Comment on above: Result Comment: Calc ulations of estimated GFR are performed using the 2020 CKD-EPI Study Refit equation without the race variable for the IDMS-Traceable creatinine methods. https://jasn.asnjournals.org/content/early//ASN.34989 58642 Performed By: #### 2 4323-8 #### CE Ascencio ([id number]) [facility] ([facility]) [id number] [place] [address] Glucose [Mass/Vol] 116 mg/dL High 74-99 [facility] Comment on above: Performed By: #### 2 4323-8 #### CE Ascencio (46815) [facility] ([facility]) [id number] [place] [address]902 Potassium [Moles/Vol] 4.2 mmol/L Normal 3.5-5.3 [facility] Comment on above: Performed By: #### 2 4323-8 #### CE Ascencio (95130) [facility]) [address] [place] [address] Protein [Mass/Vol] 7.4 g/dL Normal 6.4-8.2 [facility] Comment on above: Performed By: #### 2 4323-8 #### CE Ascencio (51135) [facility] ([facility]) [id number] [place] [address] 77674 Sodium [Moles/Vol] 140 mmol/L Normal 136-145 [facility] Comment on above: Performed By: #### 2 4323-8 #### CE Ascencio (90186) [facility]) [address] [place] [address] 14215 Urea nitrogen [Mass/Vol] 15 mg/dL Normal 6-23 [facility] Comment on above: Performed By: #### 2 4323-8 #### CE Ascencio (39552) [facility]) [address] [place] [address] 30300 Lipid 1996 panelon 4 Cholesterol [Mass/Vol] 237 mg/dL High 0-199 [facility] Comment on above: Result Comment: [...] By: #### 2 4331-1 #### CE Ascencio (11037) [facility]) [address] [place] [address]878 Cholesterol in HDL [Mass/Vol] 53.5 mg/dL Normal [facility] Comment on above: Result Comment: Age Very Low Low Normal High 0-19 Y < 35 < 40 40-45 ---- 20-24 Y ---- < 40 >45 ---- >24 Y ---- < 40 40-60 >60 Performed By: #### 2 4331-1 #### CE Ascencio (61151) [facility]) [address] [place] [address] 06410 Cholesterol in LDL [Mass/Vol] 154 mg/dL High <=99 [facility] Comment on above: Result Comment: Near Borderline AGE Desirable Optimal High High Very High 0-19 Y 0 - 109 --- 110-129 >/= 130 ---- 20-24 Y 0 - 119 --- 120-159 >/= 160 ---- >24 Y 0 - 99 100-129 130-159 160-189 >/=190 Performed By: #### 2 4331-1 #### CE Ascencio (84530) [facility] ([facility]) [id number] [place] [address] 26073 Cholesterol in VLDL [Mass/Vol] 29 mg/dL Normal 0-40 [facility] Comment on above: Performed By: #### 2 4331-1 #### CE Ascencio (81244) [facility]) [address] [place] [address] 93460 CHOLESTEROL/HDL RATIO 4.4 Normal [facility] Comment on above: Result Comment: Ref Values Desirable < 3.4 High Risk > 5.0 Performed By: #### 2 4331-1 #### CE Ascencio (46936) [facility]) [address] [place] [address] NON HDL CHOLESTEROL 184 mg/dL High 0-149 [facility] Comment on above: Result Comment: Age Desirable Borderline High High Very High 0-19 Y 0 - 119 120 - 144 >/= 145 >/= 160 20-24 Y 0 - 149 150 - 189 >/= 190 ---- >24 Y 30 mg/dL above LDL Cholesterol goal Performed By: #### 2 4331-1 #### CE Ascencio (54207) [facility] ([facility]) [id number] [place] [address] 89941 Triglyceride [Mass/Vol] 147 mg/dL Normal 0-149 [facility] Comment on above: Result [...] By: #### 2 4331-1 #### CE Ascencio (21196) [facility] ([facility]) [address] [place] [address] TSH WITH REFLEX TO FREE T4 I F ABNORMALon 07-01-2023 TSH Qn 1.00 m[IU]/L Normal 0.44-3.98 [facility] Comment on above: Order Comment: TSH t esting is performed using different testing methodology at [facility] than at other [facility]. Direct result comparisons should only be made within the same method. Performed By: #### T ADELAS #### CE Ascencio ([id number]) [facility] ([facility]) [address] [place] [address] .Auto Diffon 01-16-2023 Basophil, Absolute 0.0 10 3/mcL Normal 0.0-0.2 [facility] ([place]) Comment on above: Performed By: #### A JEWEL, GFR, CBC, ADIFF, BMP #### [address] [address] Basophils/100 WBC (Bld) 0.3 % Normal 0.0-2.5 [facility] ([place]) Comment on above: Performed By: #### A JEWEL, GFR, CBC, ADIFF, BMP #### [address] [address] Eosinophil, Absolute 0.0 10 3/mcL Normal 0.0-0.4 [facility] ([place]) Comment on above: Performed By: #### A JEWEL, GFR, CBC, ADIFF, BMP #### [address] [address] Eosinophils/100 WBC (Bld) 0.2 % Normal 0.0-7.0 [facility] ([place]) Comment on above: Performed By: #### A JEWEL, GFR, CBC, ADIFF, BMP #### [address] [address] Lymphocyte, Absolute 3.0 10 3/mcL Normal 0.8-3.9 [facility] ([place]) Comment on above: Performed By: #### A JEWEL, GFR, CBC, ADIFF, BMP #### [address] [address] Lymphocytes/100 WBC (Bld) 18.9 % Normal 10.0-50.0 [facility] ([place]) Comment on above: Performed By: #### A JEWEL, GFR, CBC, ADIFF, BMP #### [address] [address] Monocyte, Absolute 1.8 10 3/mcL High 0.2-1.0 [facility] ([place]) Comment on above: Performed By: #### A JEWEL, GFR, CBC, ADIFF, BMP #### [address] [address] Monocytes/100 WBC (Bld) 11.4 % Normal 1.7-13.0 [facility] ([place]) Comment on above: Performed By: #### A JEWEL, GFR, CBC, ADIFF, BMP #### [address] [address] Neutrophils/100 WBC (Bld) 69.2 % Normal 37.0-80.0 [facility] ([place]) Comment on above: Performed By: #### A JEWEL, GFR, CBC, ADIFF, BMP #### [address] [address] .GFRon 01-16-2023 GFR 110 ml/min/1.73sqm Normal [facility] ([place]) Comment on above: Result Comment: GFR [...] A JEWEL, GFR, CBC, ADIFF, BMP #### [address] [address] GFR Non- 91 ml/min/1.73sqm Normal [facility] ([place]) Comment on above: Result Comment: GFR [...] A JEWEL, GFR, CBC, ADIFF, BMP #### [address] [address] .NEUABSon 01-16-2023 Neutrophil, Absolute 11.0 10 3/mcL High 2.9-6.2 A [facility] ([place]) Comment on above: Performed By: #### A JEWEL, GFR, CBC, ADIFF, BMP #### [address] [address] BMPon 01-16-2023 BUN/Creatinine Ratio 23 ratio Normal 7-27 [facility] ([place]) Comment on above: Performed By: #### A JEWEL, GFR, CBC, ADIFF, BMP #### [address] [address] Calcium [Mass/Vol] 8.9 mg/dL Normal 8.4-10.2 [facility] ([place]) Comment on above: Performed By: #### A JEWEL, GFR, CBC, ADIFF, BMP #### [address] [address] Chloride [Moles/Vol] 107 mmol/L Normal 98-107 [facility] ([place]) Comment on above: Performed By: #### A JEWEL, GFR, CBC, ADIFF, BMP #### [address] [address] CO2 [Moles/Vol] 27 mmol/L Normal 23-31 [facility] ([place]) Comment on above: Performed By: #### A JEWEL, GFR, CBC, ADIFF, BMP #### [address] [address] Creatinine [Mass/Vol] 0.86 mg/dL Normal 0.70-1.30 [facility] ([place]) Comment on above: Performed By: #### A JEWEL, GFR, CBC, ADIFF, BMP #### [address] [address] Electrolyte Balance 9.0 mEq/L Normal 4.0-15.0 [facility] ([place]) Comment on above: Performed By: #### A JEWEL, GFR, CBC, ADIFF, BMP #### [address] [address] Glucose [Mass/Vol] 104 mg/dL Normal 80-115 [facility] ([place]) Comment on above: Performed By: #### A JEWEL, GFR, CBC, ADIFF, BMP #### [address] [address] Potassium [Moles/Vol] 4.5 mmol/L Normal 3.5-5.1 [facility] ([place]) Comment on above: Performed By: #### A JEWEL, GFR, CBC, ADIFF, BMP #### [address] [address] Sodium [Moles/Vol] 143 mmol/L Normal 136-145 [facility] ([place]) Comment on above: Performed By: #### A JEWEL, GFR, CBC, ADIFF, BMP #### [address] [address] Urea nitrogen [Mass/Vol] 20 mg/dL High 7-18 [facility] ([place]) Comment on above: Performed By: #### A JEWEL, GFR, CBC, ADIFF, BMP #### [address] [address] CBCon 01-16-2023 Erythrocyte distribution width (RBC) [Ratio] 15.0 % High 11.5-14.5 [facility] ([place]) Comment on above: Performed By: #### A JEWEL, GFR, CBC, ADIFF, BMP #### [address] [address] Hematocrit (Bld) [Volume fraction] 34.9 % Low 42.0-52.0 [facility] ([place]) Comment on above: Performed By: #### A JEWEL, GFR, CBC, ADIFF, BMP #### [address] [address] Hgb 11.9 G/dL Low 14.0-18.0 [facility] ([place]) Comment on above: Performed By: #### A JEWEL, GFR, CBC, ADIFF, BMP #### [address] [address] MCH (RBC) [Entitic mass] 30.0 pg Normal 27.0-31.2 [facility] ([place]) Comment on above: Performed By: #### A JEWEL, GFR, CBC, ADIFF, BMP #### [address] [address] MCHC 34.1 G/dL Normal 31.8-35.4 [facility] ([place]) Comment on above: Performed By: #### A JEWEL, GFR, CBC, ADIFF, BMP #### [address] [address] MCV (RBC) [Entitic vol] 88.0 fL Normal 80.0-94.0 [facility] ([place]) Comment on above: Performed By: #### A JEWEL, GFR, CBC, ADIFF, BMP #### [address] [address] Platelet 264 10 3/mcL Normal 130-400 [facility] ([place]) Comment on above: Performed By: #### A JEWEL, GFR, CBC, ADIFF, BMP #### [address] [address] Platelet mean volume (Bld) [Entitic vol] 7.7 fL Normal 7.4-10.4 [facility] ([place]) Comment on above: Performed By: #### A JEWEL, GFR, CBC, ADIFF, BMP #### [address] [address] RBC 3.96 10 6/mcL Low 4.04-6.13 [facility] ([place]) Comment on above: Performed By: #### A JEWEL, GFR, CBC, ADIFF, BMP #### [address] [place], [place] [address] WBC 15.9 10 3/mcL High 4.6-10.8 [facility] ([place]) Comment on above: Performed By: #### A JEWEL, GFR, CBC, ADIFF, BMP #### [address] [place], [place] [address] LABORATORYOrdered By: SYSTEM SYSTEM on 01-16-2023 Basophil, [...] SS .GFRon 01-15-2023 GFR 93 ml/min/1.73sqm Normal [facility] ([place]) Comment on above: Result Comment: GFR [...] Performed By: #### A NSG, ABOG #### [facility] [address] [place], [place] [address] #### BMP, GFR #### [address] [address] GFR Non- 77 ml/min/1.73sqm Normal [facility] ([place]) Comment on above: Result Comment: GFR [...] Performed By: #### A NSG, ABOG #### [place] [address] [place], [place] [address] #### BMP, GFR #### [address] [address] BMPon 01-15-2023 BUN/Creatinine Ratio 19 ratio Normal 7-27 [facility] ([place]) Comment on above: Performed By: #### A NSG, ABOG #### [place] [address] [place], [place] [address] #### BMP, GFR #### [address] [address] Calcium [Mass/Vol] 9.0 mg/dL Normal 8.4-10.2 [facility] ([place]) Comment on above: Performed By: #### A NSG, ABOG #### [place] [place] [address] [place], [place] [address] #### BMP, GFR #### [address] [address] Chloride [Moles/Vol] 106 mmol/L Normal 98-107 [facility] ([place]) Comment on above: Performed By: #### A NSG, ABOG #### [place] [place] [address] [place], [place] [address] #### BMP, GFR #### [address] [address] CO2 [Moles/Vol] 25 mmol/L Normal 23-31 [facility] ([place]) Comment on above: Performed By: #### A NSG, ABOG #### [address] [place] [address] [place], [place] [address] #### BMP, GFR #### [address] [address] Creatinine [Mass/Vol] 0.99 mg/dL Normal 0.70-1.30 [facility] ([place]) Comment on above: Performed By: #### A NSG, ABOG #### [place] [address] [place], [place] [address] #### BMP, GFR #### [address] [address] Electrolyte Balance 12.0 mEq/L Normal 4.0-15.0 [facility] ([place]) Comment on above: Performed By: #### A NSG, ABOG #### [place] [place] [address] [place], [place] [address] #### BMP, GFR #### [address] [address] Glucose [Mass/Vol] 102 mg/dL Normal 80-115 [facility] ([place]) Comment on above: Performed By: #### A NSG, ABOG #### [address] [place] [address] [place], [place] [address] #### BMP, GFR #### [address] [address] Potassium [Moles/Vol] 4.1 mmol/L Normal 3.5-5.1 [facility] ([place]) Comment on above: Performed By: #### A NSG, ABOG #### [address] [place] [address] [place], [place] [address] #### BMP, GFR #### [address] [place], [place] [address] Sodium [Moles/Vol] 143 mmol/L Normal 136-145 [facility] ([place]) Comment on above: Performed By: #### A NSG, ABOG #### [place] [address] [place], [place] [address] #### BMP, GFR #### [address] [address] Urea nitrogen [Mass/Vol] 19 mg/dL High 7-18 [facility] ([place]) Comment on above: Performed By: #### A NSG, ABOG #### [place] [address] [place], [place] [address] #### BMP, GFR #### [place] [address] Gel ABOon 01-15-2023 ABO/Rh Interp Positive Invalid Interpretation Code [facility] ([place]) Comment on above: Performed By: #### A NSG, ABOG #### [address] [place] [address] [place] [id number] #### BMP, GFR #### [place] [address] Gel ABSon 01-15-2023 Antibody Screen Gel Negative Normal [facility] ([place]) Comment on above: Performed By: #### A NSG, ABOG #### [facility] [address] [place] [id number] #### BMP, GFR #### [place] [address] LABORATORYOrdered By: Dinora Reed on 01-15-2023 ABO/Rh [...] 01/15/2023 9:33:34 AM Ordering Provider: GRICELDA OLIVER [facility] ([place]) CT KNEE W/O CONTRAST RIGHTon 01-07-2023 [...] 01/07/2023 3:41:18 PM Ordering Provider: GRICELDA Yepez [facility] ([place]) .Auto Diffon 12-17-2022 Basophil, Absolute 0.1 10 3/mcL Normal 0.0-0.2 [facility] ([place]) Comment on above: Performed By: #### A JEWEL, GFR, CBC, ADIFF, BMP #### [address] [address] Basophils/100 WBC (Bld) 1.4 % Normal 0.0-2.5 [facility] ([place]) Comment on above: Performed By: #### A JEWEL, GFR, CBC, ADIFF, BMP #### [address] [address] Eosinophil, Absolute 0.3 10 3/mcL Normal 0.0-0.4 [facility] ([place]) Comment on above: Performed By: #### A JEWEL, GFR, CBC, ADIFF, BMP #### [address] [address] Eosinophils/100 WBC (Bld) 2.7 % Normal 0.0-7.0 [facility] ([place]) Comment on above: Performed By: #### A JEWEL, GFR, CBC, ADIFF, BMP #### [address] [address] Lymphocyte, Absolute 3.2 10 3/mcL Normal 0.8-3.9 [facility] ([place] Comment on above: Performed By: #### A JEWEL, GFR, CBC, ADIFF, BMP #### [address] [address] Lymphocytes/100 WBC (Bld) 32.9 % Normal 10.0-50.0 [facility] ([place]) Comment on above: Performed By: #### A JEWEL, GFR, CBC, ADIFF, BMP #### [address] [address] Monocyte, Absolute 1.1 10 3/mcL High 0.2-1.0 [facility] ([place]) Comment on above: Performed By: #### A JEWEL, GFR, CBC, ADIFF, BMP #### [address] [address] Monocytes/100 WBC (Bld) 11.3 % Normal 1.7-13.0 [facility] ([place]) Comment on above: Performed By: #### A JEWEL, GFR, CBC, ADIFF, BMP #### [address] [address] Neutrophils/100 WBC (Bld) 51.7 % Normal 37.0-80.0 [facility] ([place]) Comment on above: Performed By: #### A JEWEL, GFR, CBC, ADIFF, BMP #### [address] [address] .GFRon 12-17-2022 GFR Non- 77 ml/min/1.73sqm Normal [facility] ([place]) Comment on above: Result Comment: GFR [...] A JEWEL, GFR, CBC, ADIFF, BMP #### [address] [address] GFR 93 ml/min/1.73sqm Normal [facility] ([place]) Comment on above: Result Comment: GFR [...] A JEWEL, GFR, CBC, ADIFF, BMP #### [address] [address] .NEUABSon 12-17-2022 Neutrophil, Absolute 5.1 10 3/mcL Normal 2.9-6.2 [facility] ([place] Comment on above: Performed By: #### A JEWEL, GFR, CBC, ADIFF, BMP #### [address] [address] ALBon 12-17-2022 Albumin Level 4.0 G/dL Normal 3.4-4.8 [facility] ([place]) Comment on above: Performed By: #### A JEWEL, GFR, CBC, ADIFF, BMP #### [address] [address] BMPon 12-17-2022 BUN/Creatinine Ratio 17 ratio Normal 7-27 [facility] ([place]) Comment on above: Performed By: #### A JEWEL, GFR, CBC, ADIFF, BMP #### [address] [address] Calcium [Mass/Vol] 9.3 mg/dL Normal 8.4-10.2 [facility] ([place]) Comment on above: Performed By: #### A JEWEL, GFR, CBC, ADIFF, BMP #### [address] [address] Chloride [Moles/Vol] 103 mmol/L Normal 98-107 [facility] ([place]) Comment on above: Performed By: #### A JEWEL, GFR, CBC, ADIFF, BMP #### [address] [address] CO2 [Moles/Vol] 29 mmol/L Normal 23-31 [facility] ([place]) Comment on above: Performed By: #### A JEWEL, GFR, CBC, ADIFF, BMP #### [address] [address] Creatinine [Mass/Vol] 0.99 mg/dL Normal 0.70-1.30 [facility] ([place]) Comment on above: Performed By: #### A JEWEL, GFR, CBC, ADIFF, BMP #### [address] [address] Electrolyte Balance 11.0 mEq/L Normal 4.0-15.0 [facility] ([place]) Comment on above: Performed By: #### A JEWEL, GFR, CBC, ADIFF, BMP #### [address] [address] Glucose [Mass/Vol] 106 mg/dL Normal 80-115 [facility] ([place]) Comment on above: Performed By: #### A JEWEL, GFR, CBC, ADIFF, BMP #### [address] [address] Potassium [Moles/Vol] 3.2 mmol/L Low 3.5-5.1 [facility] ([place]) Comment on above: Performed By: #### A JEWEL, GFR, CBC, ADIFF, BMP #### [address] [address] Sodium [Moles/Vol] 143 mmol/L Normal 136-145 [facility] ([place]) Comment on above: Performed By: #### A JEWEL, GFR, CBC, ADIFF, BMP #### [address] [address] Urea nitrogen [Mass/Vol] 17 mg/dL Normal 7-18 [facility] ([place]) Comment on above: Performed By: #### A JEWEL, GFR, CBC, ADIFF, BMP #### [address] [address] CBCon 12-17-2022 Erythrocyte distribution width (RBC) [Ratio] 16.0 % High 11.5-14.5 [facility] ([place]) Comment on above: Order Comment: Pre-A dmission Testing Performed By: #### A JEWEL, GFR, CBC, ADIFF, BMP #### [address] [address] Hematocrit (Bld) [Volume fraction] 44.3 % Normal 42.0-52.0 [facility] ([place]) Comment on above: Order Comment: Pre-A dmission Testing Performed By: #### A JEWEL, GFR, CBC, ADIFF, BMP #### [address] [address] Hgb 15.7 G/dL Normal 14.0-18.0 [facility] ([place]) Comment on above: Order Comment: Pre-A dmission Testing Performed By: #### A JEWEL, GFR, CBC, ADIFF, BMP #### [address] [address] MCH (RBC) [Entitic mass] 30.3 pg Normal 27.0-31.2 [facility] ([place]) Comment on above: Order Comment: Pre-A dmission Testing Performed By: #### A JEWEL, GFR, CBC, ADIFF, BMP #### [address] [address] MCHC 35.6 G/dL High 31.8-35.4 [facility] ([place]) Comment on above: Order Comment: Pre-A dmission Testing Performed By: #### A JEWEL, GFR, CBC, ADIFF, BMP #### [address] [address] MCV (RBC) [Entitic vol] 85.3 fL Normal 80.0-94.0 [facility] ([place]) Comment on above: Order Comment: Pre-A dmission Testing Performed By: #### A JEWEL, GFR, CBC, ADIFF, BMP #### [address] [address] Platelet 299 10 3/mcL Normal 130-400 [facility] ([place]) Comment on above: Order Comment: Pre-A dmission Testing Performed By: #### A JEWEL, GFR, CBC, ADIFF, BMP #### [address] [address] Platelet mean volume (Bld) [Entitic vol] 7.6 fL Normal 7.4-10.4 [facility] ([place]) Comment on above: Order Comment: Pre-A dmission Testing Performed By: #### A JEWEL, GFR, CBC, ADIFF, BMP #### [address] [address] RBC 5.19 10 6/mcL Normal 4.04-6.13 [facility] ([place]) Comment on above: Order Comment: Pre-A dmission Testing Performed By: #### A JEWEL, GFR, CBC, ADIFF, BMP #### [address] [address] WBC 9.8 10 3/mcL Normal 4.6-10.8 [facility] ([place]) Comment on above: Order Comment: Pre-A dmission Testing Performed By: #### A JEWEL, GFR, CBC, ADIFF, BMP #### [address] [address] LABORATORYOrdered By: SYSTEM SYSTEM on 12-17-2022 Albumin [...] MRSA (PCR) Not detected Normal Not Detected [facility] ([place]) Comment on above: Result Comment: Note s Performed By: #### A JEWEL, GFR, CBC, ADIFF, BMP #### [address] [address] MRSA PCR Int Normal [facility] ([place]) Comment on above: Result Comment: MRSA [...] A JEWEL, GFR, CBC, ADIFF, BMP #### [address] [address] .Auto Diffon 07-11-2022 Basophil, Absolute 0.0 10 3/mcL Normal 0.0-0.2 [facility] ([place]) Comment on above: Performed By: #### A JEWEL, GFR, CBC, ADIFF, BMP #### [address] [address] Basophils/100 WBC (Bld) 0.2 % Normal 0.0-2.5 [facility] ([place]) Comment on above: Performed By: #### A JEWEL, GFR, CBC, ADIFF, BMP #### [address] [address] Eosinophil, Absolute 0.0 10 3/mcL Normal 0.0-0.4 [facility] ([place]) Comment on above: Performed By: #### A JEWEL, GFR, CBC, ADIFF, BMP #### [address] [address] Eosinophils/100 WBC (Bld) 0.2 % Normal 0.0-7.0 [facility] ([place]) Comment on above: Performed By: #### A JEWEL, GFR, CBC, ADIFF, BMP #### [address] [address] Lymphocyte, Absolute 2.2 10 3/mcL Normal 0.8-3.9 [facility] ([place] Comment on above: Performed By: #### A JEWEL, GFR, CBC, ADIFF, BMP #### [address] [address] Lymphocytes/100 WBC (Bld) 14.3 % Normal 10.0-50.0 [facility] ([place]) Comment on above: Performed By: #### A JEWEL, GFR, CBC, ADIFF, BMP #### [address] [address] Monocyte, Absolute 1.7 10 3/mcL High 0.2-1.0 [facility] ([place]) Comment on above: Performed By: #### A JEWEL, GFR, CBC, ADIFF, BMP #### [address] [address] Monocytes/100 WBC (Bld) 10.8 % Normal 1.7-13.0 [facility] ([place]) Comment on above: Performed By: #### A JEWEL, GFR, CBC, ADIFF, BMP #### [address] [address] Neutrophils/100 WBC (Bld) 74.5 % Normal 37.0-80.0 [facility] ([place]) Comment on above: Performed By: #### A JEWEL, GFR, CBC, ADIFF, BMP #### [address] [address] .GFRon 07-11-2022 GFR 111 ml/min/1.73sqm Normal [facility] ([place]) Comment on above: Result Comment: GFR [...] A JEWEL, GFR, CBC, ADIFF, BMP #### [address] [address] GFR Non- 92 ml/min/1.73sqm Normal [facility] ([place]) Comment on above: Result Comment: GFR [...] A JEWEL, GFR, CBC, ADIFF, BMP #### [address] [address] .NEUABSon 07-11-2022 Neutrophil, Absolute 11.8 10 3/mcL High 2.9-6.2 A [facility] ([place]) Comment on above: Performed By: #### A JEWEL, GFR, CBC, ADIFF, BMP #### [address] [address] BMPon 07-11-2022 BUN/Creatinine Ratio 21 ratio Normal 7-27 [facility] ([place]) Comment on above: Performed By: #### A JEWEL, GFR, CBC, ADIFF, BMP #### [address] [address] Calcium [Mass/Vol] 8.7 mg/dL Normal 8.4-10.2 [facility] ([place]) Comment on above: Performed By: #### A JEWEL, GFR, CBC, ADIFF, BMP #### [address] [address] Chloride [Moles/Vol] 103 mmol/L Normal 98-107 [facility] ([place]) Comment on above: Performed By: #### A JEWEL, GFR, CBC, ADIFF, BMP #### [address] [address] CO2 [Moles/Vol] 27 mmol/L Normal 23-31 [facility] ([place]) Comment on above: Performed By: #### A JEWEL, GFR, CBC, ADIFF, BMP #### [address] [address] Creatinine [Mass/Vol] 0.85 mg/dL Normal 0.70-1.30 [facility] ([place]) Comment on above: Performed By: #### A JEWEL, GFR, CBC, ADIFF, BMP #### [address] [address] Electrolyte Balance 7.0 mEq/L Normal 4.0-15.0 [facility] ([place]) Comment on above: Performed By: #### A JEWEL, GFR, CBC, ADIFF, BMP #### [address] [address] Glucose [Mass/Vol] 127 mg/dL High 80-115 [facility] ([place]) Comment on above: Performed By: #### A JEWEL, GFR, CBC, ADIFF, BMP #### [address] [address] Potassium [Moles/Vol] 3.7 mmol/L Normal 3.5-5.1 [facility] ([place]) Comment on above: Performed By: #### A JEWEL, GFR, CBC, ADIFF, BMP #### [address] [address] Sodium [Moles/Vol] 137 mmol/L Normal 136-145 [facility] ([place]) Comment on above: Performed By: #### A JEWEL, GFR, CBC, ADIFF, BMP #### [address] [address] Urea nitrogen [Mass/Vol] 18 mg/dL Normal 7-18 [facility] ([place]) Comment on above: Performed By: #### A JEWEL, GFR, CBC, ADIFF, BMP #### [address] [address] CBCon 07-11-2022 Erythrocyte distribution width (RBC) [Ratio] 15.2 % High 11.5-14.5 [facility] ([place]) Comment on above: Performed By: #### A JEWEL, GFR, CBC, ADIFF, BMP #### [address] [address] Hematocrit (Bld) [Volume fraction] 34.6 % Low 42.0-52.0 [facility] ([place]) Comment on above: Performed By: #### A JEWEL, GFR, CBC, ADIFF, BMP #### [address] [address] Hgb 11.7 G/dL Low 14.0-18.0 [facility] ([place]) Comment on above: Performed By: #### A JEWEL, GFR, CBC, ADIFF, BMP #### [address] [address] MCH (RBC) [Entitic mass] 30.0 pg Normal 27.0-31.2 [facility] ([place]) Comment on above: Performed By: #### A JEWEL, GFR, CBC, ADIFF, BMP #### [address] [address] MCHC 33.8 G/dL Normal 31.8-35.4 [facility] ([place]) Comment on above: Performed By: #### A JEWEL, GFR, CBC, ADIFF, BMP #### [address] [address] MCV (RBC) [Entitic vol] 88.9 fL Normal 80.0-94.0 [facility] ([place]) Comment on above: Performed By: #### A JEWEL, GFR, CBC, ADIFF, BMP #### [address] [address] Platelet 272 10 3/mcL Normal 130-400 [facility] ([place]) Comment on above: Performed By: #### A JEWEL, GFR, CBC, ADIFF, BMP #### [address] [address] Platelet mean volume (Bld) [Entitic vol] 7.6 fL Normal 7.4-10.4 [facility] ([place]) Comment on above: Performed By: #### A JEWEL, GFR, CBC, ADIFF, BMP #### [address] [address] RBC 3.89 10 6/mcL Low 4.04-6.13 [facility] ([place]) Comment on above: Performed By: #### A JEWEL, GFR, CBC, ADIFF, BMP #### [facility] [address] [place], [place] [address] WBC 15.8 10 3/mcL High 4.6-10.8 [facility] ([place]) Comment on above: Performed By: #### A JEWEL, GFR, CBC, ADIFF, BMP #### [facility] [address] [place], [place] [address] LABORATORYOrdered By: Dinora Reed on 07-11-2022 Basophil, [...] 07-10-2022 ABO/Rh Interp Positive Invalid Interpretation Code [facility] ([place]) Comment on above: Performed By: #### A JEWEL, GFR, CBC, ADIFF, BMP #### [address] [place], [place] [address] Gel ABSon 07-10-2022 Antibody Screen Gel Negative Normal [facility] ([place]) Comment on above: Performed By: #### A JEWEL, GFR, CBC, ADIFF, BMP #### [address] [place], [place] [address] LABORATORYOrdered By: Jeannette Sampson on 07-10-2022 ABO/Rh [...] 07/10/2022 9:17:56 AM Ordering Provider: GRICELDA OLIVER [facility] ([place]) Office Visiton 07-05-2022 Follow-up visit Diagnoses/Problems [...] an EKG, CXR and blood work at [facility] but noneof it is available [...] years Daily caffeinated coffee consumption 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 Over the last 2 weeks have you felt down, depressed or hopeless? (If yes, answer PHQ-9 below)No PHQ-2 #2. Over the last 2 weeks have you felt little interest or pleasure in doing things? (If yes, answer PHQ-9 below)Yes O2 [id number], (more content not included)... [facility]2 [facility] 07-05-2022 Adult depression screening assessment No [facility] Work Phone: Adult depression screening assessment Yes [facility] Work Phone: .Auto Diffon 07-02-2022 Basophil, Absolute 0.1 10 3/mcL Normal 0.0-0.2 [facility] ([place]) Comment on above: Performed By: #### A JEWEL, GFR, CBC, ADIFF, BMP #### [address] [address] Basophils/100 WBC (Bld) 1.1 % Normal 0.0-2.5 [facility] ([place]) Comment on above: Performed By: #### A JEWEL, GFR, CBC, ADIFF, BMP #### [address] [place], [place] [address] Eosinophil, Absolute 0.2 10 3/mcL Normal 0.0-0.4 [facility] ([place]) Comment on above: Performed By: #### A JEWEL, GFR, CBC, ADIFF, BMP #### [address] [address] Eosinophils/100 WBC (Bld) 1.5 % Normal 0.0-7.0 [facility] ([place]) Comment on above: Performed By: #### A JEWEL, GFR, CBC, ADIFF, BMP #### [address] [address] Lymphocyte, Absolute 2.8 10 3/mcL Normal 0.8-3.9 [facility] ([place]) Comment on above: Performed By: #### A JEWEL, GFR, CBC, ADIFF, BMP #### [address] [address] Lymphocytes/100 WBC (Bld) 26.7 % Normal 10.0-50.0 [facility] ([place]) Comment on above: Performed By: #### A JEWEL, GFR, CBC, ADIFF, BMP #### [address] [address] Monocyte, Absolute 1.0 10 3/mcL Normal 0.2-1.0 [facility] ([place]) Comment on above: Performed By: #### A JEWEL, GFR, CBC, ADIFF, BMP #### [address] [address] Monocytes/100 WBC (Bld) 9.6 % Normal 1.7-13.0 [facility] ([place]) Comment on above: Performed By: #### A JEWEL, GFR, CBC, ADIFF, BMP #### [address] [address] Neutrophils/100 WBC (Bld) 61.1 % Normal 37.0-80.0 [facility] ([place]) Comment on above: Performed By: #### A JEWEL, GFR, CBC, ADIFF, BMP #### [address] [address] .GFRon 07-02-2022 GFR 127 ml/min/1.73sqm Normal [facility] ([place]) Comment on above: Result Comment: GFR [...] A JEWEL, GFR, CBC, ADIFF, BMP #### [address] [address] GFR Non- 105 ml/min/1.73sqm Normal [facility] ([place]) Comment on above: Result Comment: GFR [...] A JEWEL, GFR, CBC, ADIFF, BMP #### [address] [address] .NEUABSon 07-02-2022 Neutrophil, Absolute 6.4 10 3/mcL High 2.9-6.2 [facility] ([place]) Comment on above: Performed By: #### A JEWEL, GFR, CBC, ADIFF, BMP #### [address] [address] A1Con 07-02-2022 HbA1c (Bld) [Mass fraction] 5.8 % Normal 4.3-6.4 [facility] ([place]) Comment on above: Performed By: #### A JEWEL, GFR, CBC, ADIFF, BMP #### [address] [address] ALBon 07-02-2022 Albumin Level 3.9 G/dL Normal 3.4-4.8 [facility] ([place]) Comment on above: Performed By: #### A JEWEL, GFR, CBC, ADIFF, BMP #### [address] [address] [facility] BUN/Creatinine Ratio 25 ratio Normal 7-27 [facility] ([place]) Comment on above: Performed By: #### A JEWEL, GFR, CBC, ADIFF, BMP #### [address] [address] Calcium [Mass/Vol] 9.4 mg/dL Normal 8.4-10.2 [facility] ([place]) Comment on above: Performed By: #### A JEWEL, GFR, CBC, ADIFF, BMP #### [address] [address] Chloride [Moles/Vol] 103 mmol/L Normal 98-107 [facility] ([place]) Comment on above: Performed By: #### A JEWEL, GFR, CBC, ADIFF, BMP #### [address] [address] CO2 [Moles/Vol] 27 mmol/L Normal 23-31 [facility] ([place]) Comment on above: Performed By: #### A JEWEL, GFR, CBC, ADIFF, BMP #### [address] [address] Creatinine [Mass/Vol] 0.76 mg/dL Normal 0.70-1.30 [facility] ([place]) Comment on above: Performed By: #### A JEWEL, GFR, CBC, ADIFF, BMP #### [address] [address] Electrolyte Balance 11.0 mEq/L Normal 4.0-15.0 [facility] ([place]) Comment on above: Performed By: #### A JEWEL, GFR, CBC, ADIFF, BMP #### [address] [address] Glucose [Mass/Vol] 97 mg/dL Normal 80-115 [facility] ([place]) Comment on above: Performed By: #### A JEWEL, GFR, CBC, ADIFF, BMP #### [address] [address] Potassium [Moles/Vol] 3.8 mmol/L Normal 3.5-5.1 [facility] ([place]) Comment on above: Performed By: #### A JEWEL, GFR, CBC, ADIFF, BMP #### [address] [address] Sodium [Moles/Vol] 141 mmol/L Normal 136-145 [facility] ([place]) Comment on above: Performed By: #### A JEWEL, GFR, CBC, ADIFF, BMP #### [address] [address] Urea nitrogen [Mass/Vol] 19 mg/dL High 7-18 [facility] ([place]) Comment on above: Performed By: #### A JEWEL, GFR, CBC, ADIFF, BMP #### [address] [address] CBCon 07-02-2022 Erythrocyte distribution width (RBC) [Ratio] 15.2 % High 11.5-14.5 [facility] ([place]) Comment on above: Order Comment: Pre-A dmission Testing Performed By: #### A JEWEL, GFR, CBC, ADIFF, BMP #### [address] [address] Hematocrit (Bld) [Volume fraction] 41.7 % Low 42.0-52.0 [facility] ([place]) Comment on above: Order Comment: Pre-A dmission Testing Performed By: #### A JEWEL, GFR, CBC, ADIFF, BMP #### [address] [address] Hgb 14.6 G/dL Normal 14.0-18.0 [facility] ([place]) Comment on above: Order Comment: Pre-A dmission Testing Performed By: #### A JEWEL, GFR, CBC, ADIFF, BMP #### [address] [address] MCH (RBC) [Entitic mass] 30.8 pg Normal 27.0-31.2 [facility] ([place]) Comment on above: Order Comment: Pre-A dmission Testing Performed By: #### A JEWEL, GFR, CBC, ADIFF, BMP #### [address] [address] MCHC 35.1 G/dL Normal 31.8-35.4 [facility] ([place]) Comment on above: Order Comment: Pre-A dmission Testing Performed By: #### A JEWEL, GFR, CBC, ADIFF, BMP #### [address] [address] MCV (RBC) [Entitic vol] 87.7 fL Normal 80.0-94.0 [facility] ([place]) Comment on above: Order Comment: Pre-A dmission Testing Performed By: #### A JEWEL, GFR, CBC, ADIFF, BMP #### [address] [address] Platelet 285 10 3/mcL Normal 130-400 [facility] ([place]) Comment on above: Order Comment: Pre-A dmission Testing Performed By: #### A JEWEL, GFR, CBC, ADIFF, BMP #### [address] [address] Platelet mean volume (Bld) [Entitic vol] 7.6 fL Normal 7.4-10.4 [facility] ([place]) Comment on above: Order Comment: Pre-A dmission Testing Performed By: #### A JEWEL, GFR, CBC, ADIFF, BMP #### [address] [address] RBC 4.75 10 6/mcL Normal 4.04-6.13 [facility] ([place]) Comment on above: Order Comment: Pre-A dmission Testing Performed By: #### A JEWEL, GFR, CBC, ADIFF, BMP #### [facility] [address] [place], [place] [address] WBC 10.4 10 3/mcL Normal 4.6-10.8 [facility] ([place]) Comment on above: Order Comment: Pre-A dmission Testing Performed By: #### A JEWEL, GFR, CBC, ADIFF, BMP #### [facility] [address] [place], [place] [address] CT KNEE W/O CONTRAST LEFTon 07-02-2022 CT [...] degenerative changes are seen in the knee. Ogvr-cf-[id number] arthropathy is identified in the medial tibiofemoral [...] 1:33:58 PM Ordering Provider: GRICELDA OLIVER Normal [facility] ([place]) Gel ABOon 07-02-2022 ABO/Rh Interp Positive Invalid Interpretation Code [facility] ([place]) Comment on above: Performed By: #### A JEWEL, GFR, CBC, ADIFF, BMP #### [address] [place], [place] [address] Gel ABSon 07-02-2022 Antibody Screen Gel Negative Normal [facility] ([place]) Comment on above: Performed By: #### A JEWEL, GFR, CBC, ADIFF, BMP #### [address] [place], [place] [address] LABORATORYOrdered By: Jenny Carrington on 07-02-2022 ABO/Rh [...] 05/31/2022 7:23:13 AM Ordering Provider: ELISEO Yepez [facility] ([place]) .Auto Diffon 05-29-2022 Basophil, Absolute 0.2 10 3/mcL Normal 0.0-0.2 [facility]) Comment on above: Performed By: #### A JEWEL, GFR, CBC, ADIFF, BMP #### [address] [address] Basophils/100 WBC (Bld) 2.0 % Normal 0.0-2.5 [facility] ([place]) Comment on above: Performed By: #### A JEWEL, GFR, CBC, ADIFF, BMP #### [address] [address] Eosinophil, Absolute 0.3 10 3/mcL Normal 0.0-0.4 [facility] ([place]) Comment on above: Performed By: #### A JEWEL, GFR, CBC, ADIFF, BMP #### [address] [address] Eosinophils/100 WBC (Bld) 3.1 % Normal 0.0-7.0 [facility] ([place]) Comment on above: Performed By: #### A JEWEL, GFR, CBC, ADIFF, BMP #### [address] [address] Lymphocyte, Absolute 3.0 10 3/mcL Normal 0.8-3.9 [facility] ([place]) Comment on above: Performed By: #### A JEWEL, GFR, CBC, ADIFF, BMP #### [address] [address] Lymphocytes/100 WBC (Bld) 30.0 % Normal 10.0-50.0 [facility] ([place]) Comment on above: Performed By: #### A JEWEL, GFR, CBC, ADIFF, BMP #### [address] [address] Monocyte, Absolute 1.1 10 3/mcL High 0.2-1.0 [facility] ([place]) Comment on above: Performed By: #### A JEWEL, GFR, CBC, ADIFF, BMP #### [address] [address] Monocytes/100 WBC (Bld) 10.4 % Normal 1.7-13.0 [facility] ([place]) Comment on above: Performed By: #### A JEWEL, GFR, CBC, ADIFF, BMP #### [address] [address] Neutrophils/100 WBC (Bld) 54.5 % Normal 37.0-80.0 [facility] ([place]) Comment on above: Performed By: #### A JEWEL, GFR, CBC, ADIFF, BMP #### [address] [address] .GFRon 05-29-2022 GFR 106 ml/min/1.73sqm Normal [facility] ([place]) Comment on above: Result Comment: GFR [...] A JEWEL, GFR, CBC, ADIFF, BMP #### [address] [address] GFR Non- 87 ml/min/1.73sqm Normal [facility] ([place]) Comment on above: Result Comment: GFR [...] A JEWEL, GFR, CBC, ADIFF, BMP #### [address] [address] .NEUABSon 05-29-2022 Neutrophil, Absolute 5.5 10 3/mcL Normal 2.9-6.2 [facility] ([place]) Comment on above: Performed By: #### A JEWEL, GFR, CBC, ADIFF, BMP #### [address] [address] APTTon 05-29-2022 aPTT Coag (Bld) [Time] 32.1 s Normal 24.1-34.9 [facility] ([place]) Comment on above: Result Comment: For Heparin anticoagulation therapy, the recommended therapeutic range is: 46.2-75.9 seconds (1.5 - 2.5 the normal plasma mean). Patients on heparin therapy may have an extreme result. Performed By: #### A JEWEL, GFR, CBC, ADIFF, BMP #### [address] [address] Heparin dose (APTT) Unknown Normal [facility] ([place]) Comment on above: Performed By: #### A JEWEL, GFR, CBC, ADIFF, BMP #### [address] [address] BMPon 05-29-2022 BUN/Creatinine Ratio 22 ratio Normal 7-27 [facility]) Comment on above: Performed By: #### B MP, CBC, ANEU, ADIFF, GFR, PRO, APTT #### [address] [address] Calcium [Mass/Vol] 9.8 mg/dL Normal 8.4-10.2 [facility]) Comment on above: Performed By: #### B MP, CBC, ANEU, ADIFF, GFR, PRO, APTT #### [address] [address] Chloride [Moles/Vol] 103 mmol/L Normal 98-107 [facility]) Comment on above: Performed By: #### B MP, CBC, ANEU, ADIFF, GFR, PRO, APTT #### [address] [address] CO2 [Moles/Vol] 28 mmol/L Normal 23-31 [facility] ([place]) Comment on above: Performed By: #### B MP, CBC, ANEU, ADIFF, GFR, PRO, APTT #### [address] [address] Creatinine [Mass/Vol] 0.89 mg/dL Normal 0.70-1.30 [facility]) Comment on above: Performed By: #### B MP, CBC, ANEU, ADIFF, GFR, PRO, APTT #### [address] [address] Electrolyte Balance 8.0 mEq/L Normal 4.0-15.0 [facility] ([place]) Comment on above: Performed By: #### B MP, CBC, ANEU, ADIFF, GFR, PRO, APTT #### [address] [address] Glucose [Mass/Vol] 95 mg/dL Normal 80-115 [facility] ([place]) Comment on above: Performed By: #### B MP, CBC, ANEU, ADIFF, GFR, PRO, APTT #### [address] [address] Potassium [Moles/Vol] 3.9 mmol/L Normal 3.5-5.1 [facility] ([place]) Comment on above: Performed By: #### B MP, CBC, ANEU, ADIFF, GFR, PRO, APTT #### [address] [address] Sodium [Moles/Vol] 139 mmol/L Normal 136-145 [facility] ([place]) Comment on above: Performed By: #### B MP, CBC, ANEU, ADIFF, GFR, PRO, APTT #### [address] [address] Urea nitrogen [Mass/Vol] 20 mg/dL High 7-18 [facility] ([place]) Comment on above: Performed By: #### B MP, CBC, ANEU, ADIFF, GFR, PRO, APTT #### [address] [address] CBCon 05-29-2022 Erythrocyte distribution width (RBC) [Ratio] 15.2 % High 11.5-14.5 [facility] ([place]) Comment on above: Performed By: #### A JEWEL, GFR, CBC, ADIFF, BMP #### [address] [address] Hematocrit (Bld) [Volume fraction] 43.3 % Normal 42.0-52.0 [facility] ([place]) Comment on above: Performed By: #### A JEWEL, GFR, CBC, ADIFF, BMP #### [address] [address] Hgb 15.1 G/dL Normal 14.0-18.0 [facility] ([place]) Comment on above: Performed By: #### A JEWEL, GFR, CBC, ADIFF, BMP #### [address] [address] MCH (RBC) [Entitic mass] 30.2 pg Normal 27.0-31.2 [facility] ([place]) Comment on above: Performed By: #### A JEWEL, GFR, CBC, ADIFF, BMP #### [address] [address] MCHC 34.8 G/dL Normal 31.8-35.4 [facility] ([place]) Comment on above: Performed By: #### A JEWEL, GFR, CBC, ADIFF, BMP #### [address] [address] MCV (RBC) [Entitic vol] 87.0 fL Normal 80.0-94.0 [facility] ([place]) Comment on above: Performed By: #### A JEWEL, GFR, CBC, ADIFF, BMP #### [address] [address] Platelet 311 10 3/mcL Normal 130-400 [facility] ([place]) Comment on above: Performed By: #### A JEWEL, GFR, CBC, ADIFF, BMP #### [address] [address] Platelet mean volume (Bld) [Entitic vol] 7.2 fL Low 7.4-10.4 [facility] ([place]) Comment on above: Performed By: #### A JEWEL, GFR, CBC, ADIFF, BMP #### [address] [address] RBC 4.98 10 6/mcL Normal 4.04-6.13 [facility] ([place]) Comment on above: Performed By: #### A JEWEL, GFR, CBC, ADIFF, BMP #### [address] [address] WBC 10.1 10 3/mcL Normal 4.6-10.8 [facility] ([place]) Comment on above: Performed By: #### A JEWEL, GFR, CBC, ADIFF, BMP #### [address] [place], [place] [address] PROon 05-29-2022 INR Coag (PPP) [Relative time] 1.1 {INR} Normal 0.9-1.2 [facility] ([place]) Comment on above: Result Comment: Constantin [...] A JEWEL, GFR, CBC, ADIFF, BMP #### [address] [address] PT Coag (PPP) [Time] 12.3 s Normal 9.7-13.9 [facility] ([place]) Comment on above: Performed By: #### A JEWEL, GFR, CBC, ADIFF, BMP #### [address] [address] Office Visiton 05-25-2022 Follow-up visit Diagnoses/Problems Arthritis [...] these surgeons which will be done at [facility]. Dr Gricelda Oliver for his knees and Dr Eliseo Braxton for his spine. Both are at : [address] [place] [address] fax [phone] Review of Systems Patient has severe chronic [...] May 2020 (more content not included)... Normal [employer] Office Visit (Allergy/Immuno logy)on 05-25-2022 Follow-up visit [...] may re-assess you and develop a more termite helper plan.1 1 Amended By: [place]; May [...] in the past. 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 Normal [employer] PHQ-2 VITALSon 05-25-2022 Adult depression screening assessment No [facility] Work Phone: CBCon 05-18-2022 Erythrocyte distribution width (RBC) [Ratio] 15.1 % High 11.5 - 14.5 [facility] Comment on above: Performed By: #### C BC #### [facility] [address] [place] [address] Hematocrit (Bld) [Volume fraction] 46.3 % Normal 41.0 - 52.0 [facility] Comment on above: Performed By: #### C BC #### [facility] [address] [place] [address] Hemoglobin (Bld) [Mass/Vol] 15.5 g/dL Normal 13.5 - 17.5 [facility] Comment on above: Performed By: #### C BC #### [facility] [address] [place] [address] MCHC (RBC) [Mass/Vol] 33.5 g/dL Normal 32.0 - 36.0 [facility] Comment on above: Performed By: #### C BC #### [facility] [address] [place] [address] MCV (RBC) [Entitic vol] 89 fL Normal 80 - 100 [facility] Comment on above: Performed By: #### C BC #### [facility] [address] [place] [address] NUCLEATED RBC 0.0 /100 WBC Normal 0.0-0.0 [facility] Comment on above: Performed By: #### C BC #### [facility] [address] [place] [address] Platelets (Bld) [#/Vol] 308 10*3/uL Normal 150 - 450 [facility] Comment on above: Performed By: #### C BC #### [facility] [address] [place] [address] RBC 5.19 x10E12/L Normal 4.50 - 5.90 [facility] [place] Comment on above: Performed By: #### C BC #### [facility] [address] [place] [address] WBC (Bld) [#/Vol] 10.3 10*3/uL Normal 4.4 - 11.3 [facility] Comment on above: Performed By: #### C BC #### [facility] [address] [place] [address] COMPREHENSIVE PANELon 2022 Albumin [Mass/Vol] 4.7 g/dL Normal 3.4 - 5.0 [facility] Comment on above: Performed By: #### C MP #### [facility] [address] [place] [address] ALP [Catalytic activity/Vol] 52 U/L Normal 33 - 136 [facility] Comment on above: Performed By: #### C MP #### [facility] [address] [place] [address] ALT [Catalytic activity/Vol] 21 U/L Normal 10 - 52 [facility] Comment on above: Result Comment: Perla ents treated with Sulfasalazine may generate falsely decreased results for ALT. Performed By: #### C MP #### [facility] [address] [place] [address] Anion gap [Moles/Vol] 15 mmol/L Normal 10 - 20 [facility] Comment on above: Performed By: #### C MP #### [facility] [address] [place] [address] AST [Catalytic activity/Vol] 14 U/L Normal 9 - 39 [facility] Comment on above: Performed By: #### C MP #### [facility] [address] [place] [address] Bilirubin [Mass/Vol] 0.4 mg/dL Normal 0.0 - 1.2 [facility] Comment on above: Performed By: #### C MP #### [facility] [address] [place] [address] Calcium [Mass/Vol] 9.7 mg/dL Normal 8.6 - 10.6 [facility] Comment on above: Performed By: #### C MP #### [facility] [address] [place] [address] Chloride [Moles/Vol] 103 mmol/L Normal 98 - 107 [facility] Comment on above: Performed By: #### C MP #### [facility] [address] [place] [address] Creatinine [Mass/Vol] 0.93 mg/dL Normal 0.50 - 1.30 [facility] Comment on above: Performed By: #### C MP #### [facility] [address] [place] [address] eGFR MALE >90 Normal >90 [facility] Comment on above: Result Comment: CALC ULATIONS OF ESTIMATED GFR ARE PERFORMED USING THE 2020 CKD-EPI STUDY REFIT EQUATION WITHOUT THE RACE VARIABLE FOR THE IDMS-TRACEABLE CREATININE METHODS. https://jasn.asnjournals.org/content/early//ASN.59965 47390 Performed By: #### C MP #### [facility] [address] [place] [address] Glucose [Mass/Vol] 106 mg/dL High 74 - 99 [facility] Comment on above: Performed By: #### C MP #### [facility] [address] [place] [address] HCO3 (Bld) [Moles/Vol] 28 mmol/L Normal 21 - 32 [facility] Comment on above: Performed By: #### C MP #### [facility] [address] [place] [address] Potassium [Moles/Vol] 4.0 mmol/L Normal 3.5 - 5.3 [facility] Comment on above: Performed By: #### C MP #### [facility] [address] [place] [address] Protein [Mass/Vol] 7.3 g/dL Normal 6.4 - 8.2 [facility] Comment on above: Performed By: #### C MP #### [facility] [address] [place] [address] Sodium [Moles/Vol] 142 mmol/L Normal 136 - 145 [facility] Comment on above: Performed By: #### C MP #### [facility] [address] [place] [address] Urea nitrogen [Mass/Vol] 24 mg/dL High 6 - 23 [facility] Comment on above: Performed By: #### C MP #### [facility] [address] [place] [address] LIPID PANEL (CORONARY RISK 2 )on 05-18-2022 [...] Performed By: #### L IPID #### [facility] [address] [place] [address] Cholesterol in HDL [Mass/Vol] 43.4 mg/dL Normal [facility] Comment on above: Result Comment: . AGE VERY LOW LOW NORMAL HIGH 0-19 Y < 35 < 40 40-45 ---- 20-24 Y ---- < 40 >45 ---- >24 Y ---- < 40 40-60 >60 . Performed By: #### L IPID #### [facility] [address] [place] [address] Cholesterol in LDL [Mass/Vol] 131 mg/dL High [...] Performed By: #### L IPID #### [facility] [address] [place] [address] Cholesterol in VLDL [Mass/Vol] 16 mg/dL Normal 0 - 40 [facility] Comment on above: Performed By: #### L IPID #### [facility] [address] [place] [address] Cholesterol.total/Chol esterol in HDL [Mass ratio] 4.4 {ratio} Normal [facility] Comment on above: Result Comment: REF VALUES DESIRABLE < 3.4 HIGH RISK > 5.0 Performed By: #### L IPID #### [facility] [address] [place] [address] Triglyceride [Mass/Vol] 82 mg/dL Normal 0 - [...] Performed By: #### L IPID #### [facility] [address] [place] [address] Laboratory - Chemistry and C hemistry - challengeon 05-18-2022 Albumin BCP dye [Mass/Vol] 4.7 g/dL 3.4 - 5.0 [facility] Work Phone: ALP [Catalytic activity/Vol] 52 U/L 33 - 136 -[facility] Work Phone: ALT With P-5'-P [Catalytic activity/Vol] 21 U/L 10 - 52 [facility] Work [facility]: Comment on above: Patients treated wit h Sulfasalazine may generate falsely decreased results for ALT. Anion gap [Moles/Vol] 15 mmol/L 10 - 20 [facility] Work Phone: AST With P-5'-P [Catalytic activity/Vol] 14 U/L 9 - 39 [facility] Work Phone: Bilirubin [Mass/Vol] 0.4 mg/dL 0.0 - 1.2 [facility] Work Phone: Calcium [Mass/Vol] 9.7 mg/dL 8.6 - 10.6 [facility] Work Phone: Chloride [Moles/Vol] 103 mmol/L 98 - 107 -I [facility]ternal [facility] Work Phone: CO2 [Moles/Vol] 28 mmol/L 21 - 32 [facility] Work Phone: Creatinine [Mass/Vol] 0.93 mg/dL See Below [facility] Work Phone: Comment on above: Reference Range: 0.5 0 - 1.30 Glucose [Mass/Vol] 106 mg/dL above high threshold 74 - 99 [facility] Work Phone: Potassium [Moles/Vol] 4.0 mmol/L 3.5 - 5.3 [facility] Work Phone: Protein [Mass/Vol] 7.3 g/dL 6.4 - 8.2 -Int [facility] Work Phone: Sodium [Moles/Vol] 142 mmol/L 136 - 145 -Int [facility] Work Phone: TSH Qn 1.04 m[IU]/L See Below [facility] Work Phone: Comment on above: Reference Range: 0.4 4 - 3.98 TSH testing is performed using different testing methodology at [facility] than at other [facility]. Direct result comparisons should only be made within the same method. Urea nitrogen [Mass/Vol] 24 mg/dL above high threshold 6 - 23 [facility] Work Phone: Laboratory - Hematology and Cell countson 05-18-2022 Erythrocyte distribution width (RBC) [Ratio] 15.1 % above high threshold See Below [facility] Work Phone: Comment on above: Reference Range: 11. 5 - 14.5 Hematocrit (Bld) [Volume fraction] 46.3 % See Below [facility] Work Phone: Comment on above: Reference Range: 41. 0 - 52.0 Hemoglobin (Bld) [Mass/Vol] 15.5 g/dL See Below [facility] Work Phone: Comment on above: Reference Range: 13. 5 - 17.5 MCHC (RBC) [Mass/Vol] 33.5 g/dL See Below [facility] Work Phone: Comment on above: Reference Range: 32. 0 - 36.0 MCV (RBC) [Entitic vol] 89 fL 80 - 100 [facility] Work Phone: Platelets (Bld) [#/Vol] 308 10*3/uL 150 - 450 [facility] Work Phone: RBC (Bld) [#/Vol] 5.19 {x10E12/L} See Below [facility] Work Phone: Comment on above: Reference Range: 4.5 0 - 5.90 WBC (Bld) [#/Vol] 10.3 10*3/uL 4.4 - 11.3 [facility] Work Phone: Lipid Panelon 05-18-2022 Cholesterol [Mass/Vol] 191 mg/dL 0 - 199 [facility] Work Phone: Comment on above: . [...] dosing. Cholesterol in HDL [Mass/Vol] 43.4 mg/dL [facility] Work Phone: Comment on above: . AGE VERY LOW LOW N ORMAL HIGH 0-19 Y < 35 < 40 40-45 ---- 20-24 Y ---- < 40 >45 ---- >24 Y ---- < 40 40-60 >60. Cholesterol in LDL [Mass/Vol] 131 mg/dL above high threshold 0 - 99 [facility] Work Phone: Comment on above: . NEAR BORD AGE IGNACIO RABLE OPTIMAL HIGH HIGH VERY HIGH 0-19 Y 0 - 109 --- 110-129 >/= 130 ---- 20-24 Y 0 - 119 --- 120-159 >/= 160 ---- >24 Y 0 - 99 100-129 130-159 160-189 >/=190. Cholesterol.total/Chol esterol in HDL [Mass ratio] 4.4 {ratio} [facility] Work Phone: Comment on above: REF VALUESDESIRABLE < 3.4HIGH RISK > 5.0 Triglyceride [Mass/Vol] 82 mg/dL 0 - 149 [facility] Work Phone: Comment on above: . AGE [...] Lipid Panel 16 mg/dL 0 - 40 [facility] Work Phone: No Panel Informationon 05-18 >90 >90 [facility] [employer] Work Phone: Comment on above: CALCULATIONS OF TAM MATED GFR ARE PERFORMED USING THE 2020 CKD-EPI STUDY REFIT EQUATION WITHOUT THE RACE VARIABLE FOR THE IDMS-TRACEABLE CREATININE METHODS.https://jasn.asnjournals.org/content/early/A SN.9466577587 0.0 {/100_WBC} 0.0-0.0 [facility] Work Phone: TSH WITH REFLEX TO FREE T4 I F ABNORMALon 05-18-2022 TSH Qn 1.04 m[IU]/L Normal 0.44 - 3.98 [facility] Comment on above: Result Comment: TSH testing is performed using different testing methodology at [facility] than at other [facility]. Direct result comparisons should only be made within the same method. Performed By: #### T HYDS #### [facility] [address] [place] [address] VITAMIN D, 25-HYDROXYon VITAMIN D, 25-HYDROXY 61 ng/mL Normal [facility] Comment on above: Result Comment: . DEFICIENCY: < 20 NG/ML INSUFFICIENCY: 20-29 NG/ML SUFFICIENCY: 30-100 NG/ML THIS ASSAY ACCURATELY QUANTIFIES THE SUM OF VITAMIN D3, 25-HYDROXY AND VIT D2,25-HYDROXY. Performed By: #### V TDOH #### [facility] [address] [place] [address] Vitamin D 25-Hydroxyon 05-18 25-hydroxyvitamin D3 [Mass/Vol] [...] seen. No stenosis. Paraspinal musculature: Normal. 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, most prominently T12-L1 [...] 05/09/2022 12:52:17 PM Ordering Provider: ELISEO Yepez [facility] ([place]) .Auto Diffon 04-27-2022 Basophil, Absolute 0.1 10 3/mcL Normal 0.0-0.2 [facility] ([place]) Comment on above: Performed By: #### A JEWEL, GFR, CBC, ADIFF, BMP #### [address] [address] Basophils/100 WBC (Bld) 0.9 % Normal 0.0-2.5 [facility] ([place]) Comment on above: Performed By: #### A JEWEL, GFR, CBC, ADIFF, BMP #### [address] [address] Eosinophil, Absolute 0.3 10 3/mcL Normal 0.0-0.4 [facility] ([place]) Comment on above: Performed By: #### A JEWEL, GFR, CBC, ADIFF, BMP #### [address] [address] Eosinophils/100 WBC (Bld) 2.8 % Normal 0.0-7.0 [facility] ([place]) Comment on above: Performed By: #### A JEWEL, GFR, CBC, ADIFF, BMP #### [address] [address] Lymphocyte, Absolute 2.7 10 3/mcL Normal 0.8-3.9 [facility] ([place] Comment on above: Performed By: #### A JEWEL, GFR, CBC, ADIFF, BMP #### [address] [address] Lymphocytes/100 WBC (Bld) 21.7 % Normal 10.0-50.0 [facility] ([place]) Comment on above: Performed By: #### A JEWEL, GFR, CBC, ADIFF, BMP #### [address] [address] Monocyte, Absolute 1.1 10 3/mcL High 0.2-1.0 [facility] ([place]) Comment on above: Performed By: #### A JEWEL, GFR, CBC, ADIFF, BMP #### [address] [address] Monocytes/100 WBC (Bld) 8.6 % Normal 1.7-13.0 [facility] ([place]) Comment on above: Performed By: #### A JEWEL, GFR, CBC, ADIFF, BMP #### [address] [address] Neutrophils/100 WBC (Bld) 66.0 % Normal 37.0-80.0 [facility] ([place]) Comment on above: Performed By: #### A JEWEL, GFR, CBC, ADIFF, BMP #### [address] [address] .GFRon 04-27-2022 GFR 107 ml/min/1.73sqm Normal [facility] ([place]) Comment on above: Result Comment: GFR [...] A JEWEL, GFR, CBC, ADIFF, BMP #### [address] [address] GFR Non- 88 ml/min/1.73sqm Normal [facility] ([place]) Comment on above: Result Comment: GFR [...] A JEWEL, GFR, CBC, ADIFF, BMP #### [address] [address] .NEUABSon 04-27-2022 Neutrophil, Absolute 8.1 10 3/mcL High 2.9-6.2 [facility] ([place]) Comment on above: Performed By: #### A JEWEL, GFR, CBC, ADIFF, BMP #### [address] [address] ALBon 04-27-2022 Albumin Level 3.9 G/dL Normal 3.4-4.8 [facility] ([place]) Comment on above: Performed By: #### A JEWEL, GFR, CBC, ADIFF, BMP #### [address] [address] BMPon 04-27-2022 BUN/Creatinine Ratio 24 ratio Normal 7-27 [facility] ([place]) Comment on above: Performed By: #### A JEWEL, GFR, CBC, ADIFF, BMP #### [address] [address] Calcium [Mass/Vol] 9.2 mg/dL Normal 8.4-10.2 [facility] ([place]) Comment on above: Performed By: #### A JEWEL, GFR, CBC, ADIFF, BMP #### [address] [address] Chloride [Moles/Vol] 106 mmol/L Normal 98-107 [facility] ([place]) Comment on above: Performed By: #### A JEWEL, GFR, CBC, ADIFF, BMP #### [address] [address] CO2 [Moles/Vol] 29 mmol/L Normal 23-31 [facility] ([place]) Comment on above: Performed By: #### A JEWEL, GFR, CBC, ADIFF, BMP #### [address] [address] Creatinine [Mass/Vol] 0.88 mg/dL Normal 0.70-1.30 [facility] ([place]) Comment on above: Performed By: #### A JEWEL, GFR, CBC, ADIFF, BMP #### [address] [address] Electrolyte Balance 8.0 mEq/L Normal 4.0-15.0 [facility] ([place]) Comment on above: Performed By: #### A JEWEL, GFR, CBC, ADIFF, BMP #### [address] [address] Glucose [Mass/Vol] 115 mg/dL Normal 80-115 [facility] ([place]) Comment on above: Performed By: #### A JEWEL, GFR, CBC, ADIFF, BMP #### [address] [address] Potassium [Moles/Vol] 4.4 mmol/L Normal 3.5-5.1 [facility] ([place]) Comment on above: Performed By: #### A JEWEL, GFR, CBC, ADIFF, BMP #### [address] [address] Sodium [Moles/Vol] 143 mmol/L Normal 136-145 [facility] ([place]) Comment on above: Performed By: #### A JEWEL, GFR, CBC, ADIFF, BMP #### [address] [address] Urea nitrogen [Mass/Vol] 21 mg/dL High 7-18 [facility] ([place]) Comment on above: Performed By: #### A JEWEL, GFR, CBC, ADIFF, BMP #### [address] [address] CBCon 04-27-2022 Erythrocyte distribution width (RBC) [Ratio] 15.8 % High 11.5-14.5 [facility] ([place]) Comment on above: Performed By: #### A JEWEL, GFR, CBC, ADIFF, BMP #### [address] [address] Hematocrit (Bld) [Volume fraction] 43.2 % Normal 42.0-52.0 [facility] ([place]) Comment on above: Performed By: #### A JEWEL, GFR, CBC, ADIFF, BMP #### [address] [address] Hgb 14.9 G/dL Normal 14.0-18.0 [facility] ([place]) Comment on above: Performed By: #### A JEWEL, GFR, CBC, ADIFF, BMP #### [address] [address] MCH (RBC) [Entitic mass] 30.4 pg Normal 27.0-31.2 [facility] ([place]) Comment on above: Performed By: #### A JEWEL, GFR, CBC, ADIFF, BMP #### [address] [address] MCHC 34.4 G/dL Normal 31.8-35.4 [facility] ([place]) Comment on above: Performed By: #### A JEWEL, GFR, CBC, ADIFF, BMP #### [address] [address] MCV (RBC) [Entitic vol] 88.3 fL Normal 80.0-94.0 [facility] ([place]) Comment on above: Performed By: #### A JEWEL, GFR, CBC, ADIFF, BMP #### [address] [address] Platelet 281 10 3/mcL Normal 130-400 [facility] ([place]) Comment on above: Performed By: #### A JEWEL, GFR, CBC, ADIFF, BMP #### [address] [address] Platelet mean volume (Bld) [Entitic vol] 7.8 fL Normal 7.4-10.4 [facility] ([place]) Comment on above: Performed By: #### A JEWEL, GFR, CBC, ADIFF, BMP #### [address] [place], [place] [address] RBC 4.89 10 6/mcL Normal 4.04-6.13 [facility] ([place]) Comment on above: Performed By: #### A JEWEL, GFR, CBC, ADIFF, BMP #### [address] [place], [place] [address] WBC 12.3 10 3/mcL High 4.6-10.8 [facility] ([place]) Comment on above: Performed By: #### A JEWEL, GFR, CBC, ADIFF, BMP #### [facility] [address] [place], [place] [address] No Panel Informationon 03-30 Please click on [...] History of (more content not included)... Normal [employer] PHQ-2 VITALSon 03-30-2022 Adult depression screening assessment [...] with right-sided sciatica. COMPARISON: None. 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 COMPARISON: 09/29/2019 ACCESSION NUMBER(S): [id number] ORDERING CLINICIAN: GRICELDA GUARDADO FINDINGS: Bilateral knees, four views There is severe joint space narrowing with sclerosis and osteophytosis the medial compartments bilaterally. Bilateral genu varum. Mild degenerative change the lateral and patellofemoral compartments as well. 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 Normal [facility] 07-14-2021 Follow-up visit Diagnoses/Problems Cellulitis [...] Keflex and Bactrim(Generic) F/u with Dr Scott [facility] [phone] Must be seen next week. f/u Dr [...] for hospital follow-up. Patient was admitted to [facility] on June 24 and discharged June [...] day sm (more content not included)... Normal [employer] LABORATORYOrdered By: Deandre Aragon on 06-27-2021 Creatinine [...] Culture Wound Deep Panel Culture results pending. [facility] Work Phone: GS No organisms seen. [facility] Work Phone: LABORATORYOrdered By: Ela Garcia [...] Routine cultures are held for 5 days. [facility] Work Phone: Microscopic examination of blood, culture Culture has been received in lab and is no growth to date. Routine cultures are held for 5 days. [facility] Work Phone: BASIC METABOLIC PANELon 05- Anion gap [Moles/Vol] 10 mmol/L Normal 10 - 20 [facility] Comment on above: Performed By: #### B MP #### [address] [address] Calcium [Mass/Vol] 8.9 mg/dL Normal 8.6 - 10.3 [facility] Comment on above: Performed By: #### B MP #### [address] [address] Chloride [Moles/Vol] 104 mmol/L Normal 98 - 107 [facility] Comment on above: Performed By: #### B MP #### [address] [address] Creatinine [Mass/Vol] 0.91 mg/dL Normal 0.50 - 1.30 [facility] Comment on above: Performed By: #### B MP #### [address] [address] GFR- AM. >60 Normal >60 [facility] Comment on above: Result Comment: CALC ULATIONS OF ESTIMATED GFR ARE PERFORMED USING THE MDRD STUDY EQUATION FOR THE IDMS-TRACEABLE CREATININE METHODS. CLIN CHEM 2007;53:766-72 Performed By: #### B MP #### [address] [address] GFR-NON AM. >60 Normal >60 [facility] Comment on above: Performed By: #### B MP #### [address] [address] Glucose [Mass/Vol] 82 mg/dL Normal 74 - 99 [facility] Comment on above: Performed By: #### B MP #### [facility] [address] [place] [address] HCO3 (Bld) [Moles/Vol] 27 mmol/L Normal 21 - 32 [facility] Comment on above: Performed By: #### B MP #### [facility] [address] [facility] [place] [address] Potassium [Moles/Vol] 3.5 mmol/L Normal 3.5 - 5.3 [facility] Comment on above: Performed By: #### B MP #### [facility] [address] [place] [address] Sodium [Moles/Vol] 137 mmol/L Normal 136 - 145 [facility] Comment on above: Performed By: #### B MP #### [facility] [address] [place] [address] Urea nitrogen [Mass/Vol] 17 mg/dL Normal 6 - 23 [facility] Comment on above: Performed By: #### B MP #### [address] [address] History and Physical - Surgi cirilo Update [...] Updated: 06-Oct-2019 15:51 by Monica Earl) Normal [facility] MISCELLANEOUS CULT./SM.BACT. on 10-06-2019 MISCELLANEOUS CULT./SM.BACT. PATIENT: ILDEFONSO ROCHA LOCATION: [facility] BILL#: [id number] : 64 AGE: SEX: M ORDERED BY: MONICA EARL SOURCE: [facility] [place] COLLECTED: 10/06/19 15:26 ANTIBIOTICS AT [place].: RECEIVED [...] SDD=SUSCEPTIBLE DOSE DEPENDENT NS=NONSUSCEPTIBLE X=REPORTED IN ERROR [facility] Comment on above: Performed By: #### [facility] #### [facility] [address] [place] [address] Operative Reports - Irvonaon 10-06-2019 Operative Reports - [place] PROCEDURE: Incision and drainage of right hemiscrotal [...] Monica Earl MD EST EST DICTATION NUMBER: [id number] INTERNAL JOB NUMBER: [id number] Electronic Signatures: Monica Earl) (Signed on 13-Oct-2019 15:03) Authored Unsigned, Draft (SYS GENERATED) (Entered on 06-Oct-2019 16:54) Entered Last Updated: 13-Oct-2019 15:03 by Monica Earl) [facility] 10-06-2019 [place] Histology Name ILDEFONSO ROCHA Pathologist: JEROME LYON MD Date of Procedure: 10/06/2019 Date Received: 10/06/2019 Date Reported 10/12/2019 Submitting Physician: OMNICA EARL MD Location: Other External # FINAL [...] 0.5 cm and 0.5 cm in length. Pattern Room Attendant sections are submitted in one cassette. RL rlm/10/06/2019 Normal [facility] Comment on above: Performed By: #### P #### [facility] [address] [address] [facility] [address] Preop Checkliston 10-06-2019 Preop Checklist Preop Checklist: Preop Checklist: Arrival [id number] Arrival Time12:42 Procedure Typeabcess removal NPO [id number] 00:00 ID Band Onyes Allergy Bandno known [...] Last Updated: 06-Oct-2019 12:43 by Anayeli Coles) 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), center location, remove jewerly/piercings, time to arrive, arrival time of 1330 for 1430 no am meds Prep Instructions Reviewedyes Prep Typeper office Instructed to Have No Fluids Aftermidnight General Health: Blood Avoidance/Restrictionsno ne Weight in kg137.5 kilogram(s) Weight in bku252.1 pound(s) Weight Methodstated Height in cm177.8 centimeter(s) Height in feet5 feet Height in [id number] inch(es) Height Methodstated BMI (kg/m2)43.494 square meter [...] Learning Preferencesverbal instruction Cultural Considerationsnone Developmental Considerationsnone Baptist Considerationsnone Other learner availableno [place] RiskPatient location auto qualifies him/her for HIGH RISK. Are there any cultural, spiritual, adventism practices/values/needs that are important for us to knowno Do you want a visit/item from [facility] Would you like your Apricot Washer/Chief Gauger notifiedno Pain Scalenumerical 0-10 Pain Scale Educationteaching provided Current Pain Level0 = None Acceptable Pain Level0 = None Chronic Painno Information Review: Allergies, Home Meds and Significant Events have been Reviewed and Verified with Patient/Familyyes Allergy, Intolerance, Adverse Event: Allergies: No Known Allergies: Active Electronic Signatures: Anayeli Coles (SANA) (Signed 06-Oct-2019 12:46) Authored: Profile, Additional Information Nile Savage (SANA) (Signed 02-Oct-2019 12:54) Authored: Profile, Additional Information Last Updated: 06-Oct-2019 12:46 by Anayeli Coles (SANA) References: 1. Data Referenced From Patient Profile - Preop v2 05-Sep-2018 10:21 Normal [facility] Otheron 09-25-2019 XR Chest 2 views Interpreted by: SARAN BONILLA09/25/19 11:39MRN: [id number] Name: ILDEFONSO ROCHA STUDY:TH CHEST 2 VIEW [...] signed by: SARAN BONILLA 09/25/19 11:[address] [facility] Work Phone: CRP, High Sensitivityon 09-10 CRP High sensitivity method [Mass/Vol] 18.3 mg/L Abnormal [facility] Work Phone: Comment on above: hsCRP INTERPRETATION mg/L < 1.0 LOW RELATIVE RISK OF CVD 1.0-3.0 AVERAGE RELATIVE RISK OF CVD > 3.0 HIGH RELATIVE RISK OF CVD Source:CHELSEY TAnabelle Piña. et al. CIRCULATION 2003;107:499-511. Complete Blood Count + Diffe rentialon 09-21-2019 Basophils/100 WBC (Bld) 1.3 % 0.0 - 2.0 [facility] Work Phone: Eosinophils (Bld) [#/Vol] 0.38 {x10E9/L} See Below [facility] Work Phone: Comment on above: Reference Range: 0.0 0 - 0.70 Eosinophils/100 WBC (Bld) 2.8 % 0.0 - 6.0 [facility] Work Phone: Erythrocyte distribution [...] Lymphocytes/100 WBC (Bld) 30.0 % See Below [facility] [employer] Work Phone: Comment on above: Reference Range: 13. 0 - 44.0 MCHC (RBC) [Mass/Vol] 34.6 g/dL See Below [facility] [employer] Work Phone: Comment on above: Reference Range: 32. 0 - 36.0 MCV (RBC) [Entitic vol] 88 fL 80 - 100 [facility] [employer] Work Phone: Monocytes (Bld) [#/Vol] 1.38 {x10E9/L} above high threshold See Below [facility] [employer] Work Phone: Comment on above: Reference Range: 0.1 0 - 1.00 Monocytes/100 WBC (Bld) 10.3 % 2.0 - 10.0 [facility] [employer] Work Phone: Neutrophils (Bld) [#/Vol] 7.40 {x10E9/L} See Below [facility] [employer] Work Phone: Comment on above: Reference Range: 1.2 0 - 7.70 Neutrophils/100 WBC (Bld) 55.1 % See Below [facility] [employer] Work Phone: Comment on above: Reference Range: 40. 0 - 80.0 Platelets (Bld) [#/Vol] 281 {x10E9/L} 150 - 450 [facility] [employer] Work Phone: RBC (Bld) [#/Vol] 5.25 {x10E12/L} See Below [facility] [employer] Work Phone: Comment on above: Reference Range: 4.5 0 - 5.90 WBC (Bld) [#/Vol] 13.4 {x10E9/L} above high threshold 4.4 - 11.3 [facility] [employer] Work Phone: WBC (Bld) [#/Vol] 0.0 {/100_WBC} 0.0-0.0 [facility] Work Phone: Complete Blood Count [...] RBC (Bld) [#/Vol] 5.08 {x10E12/L} See Below [facility] Work Phone: Comment on above: Reference Range: 4.5 0 - 5.90 WBC (Bld) [#/Vol] 0.0 {/100_WBC} 0.0-0.0 [facility] Work Phone: WBC (Bld) [#/Vol] 11.5 {x10E9/L} above high threshold 4.4 - 11.3 [facility] Work Phone: Lipid Panelon 05-25-2019 Cholesterol [Mass/Vol] 161 mg/dL 0 - 199 [facility] Work Phone: Comment on [...] guidelines reference: NCEP ATPIII Guidelines, JOSEF 2001, 258:1366-97. Venipuncture immediately after or during the administration of Metamizole may lead to falsely low results. Testing should be performed immediately prior to Metamizole dosing. Cholesterol in HDL [Mass/Vol] 45.1 mg/dL [facility] Work Phone: Comment on above: . AGE VERY LOW LOW N ORMAL HIGH 0-19 Y < 35 < 40 40-45 ---- 20-24 Y ---- < 40 >45 ---- >24 Y ---- < 40 40-60 >60. Cholesterol in LDL [Mass/Vol] 97 mg/dL 0 - 99 [facility] Work Phone: Comment on above: . NEAR BORD AGE IGNACIO RABLE OPTIMAL HIGH HIGH VERY HIGH 0-19 Y 0 - 109 --- 110-129 >/= 130 ---- 20-24 Y 0 - 119 --- 120-159 >/= 160 ---- >24 Y 0 - 99 100-129 130-159 160-189 >/=190. Cholesterol.total/Chol esterol in HDL [Mass ratio] 3.6 {ratio} [facility] Work Phone: Comment on above: REF VALUESDESIRABLE < 3.4HIGH RISK > 5.0 Triglyceride [Mass/Vol] 97 mg/dL 0 - 149 [facility] Work Phone: Comment on above: [...] Lipid Panel 19 mg/dL 0 - 40 [facility] Work Phone: Metabolic Panelon 05-25-2019 ALP [Catalytic activity/Vol] 58 U/L 33 - 120 [facility] Work Phone: Anion gap [Moles/Vol] 15 mmol/L 10 - 20 [facility] Work Phone: Bilirubin [Mass/Vol] 0.4 mg/dL 0.0 - 1.2 [facility] Work Phone: Calcium [Mass/Vol] 9.6 mg/dL 8.6 - 10.6 [facility] Work Phone: Chloride [Moles/Vol] 103 mmol/L 98 - 107 [facility] Work Phone: CO2 [Moles/Vol] 25 mmol/L 21 - 32 [facility] Work Phone: Creatinine [Mass/Vol] 1.02 mg/dL See Below - [facility] Work Phone: Comment on above: Reference Range: 0.5 0 - 1.30 Glucose [Mass/Vol] 92 mg/dL 74 - 99 [facility] Work Phone: Potassium [Moles/Vol] 4.0 mmol/L 3.5 - 5.3 [facility] Work Phone: Protein [Mass/Vol] 6.9 g/dL 6.4 - 8.2 [facility] Work Phone: Sodium [Moles/Vol] 139 mmol/L 136 - 145 [facility] Work Phone: Urea nitrogen [Mass/Vol] 17 mg/dL 6 - 23 [facility] Work Phone: Otheron 05-25-2019 Albumin [...] MCHC (RBC) [Mass/Vol] 33.9 g/dL See Below [facility] Work Phone: Comment on above: Reference Range: 32. 0 - 36.0 >60 >60 [facility] Work Phone: Comment on above: CALCULATIONS OF TAM MATED GFR ARE PERFORMED USING THE MDRD STUDY EQUATION FOR THE IDMS-TRACEABLE CREATININE METHODS. CLIN CHEM 2007;53:766-72 Thyroidon 05-25-2019 TSH Qn 1.59 {mIU/L} See Below [facility] Work Phone: Comment on above: Reference Range: 0.4 4 - 3.98 TSH testing is performed using different testing methodology at [facility] than at other [facility] hospitals. Direct result comparisons should only be made within the same method.. Patients receiving more than 5 mg/day of biotin may have interference in test results. A sample should be taken no sooner than eight hours after previous dose. Contact [phone] for additional information. Vitamin D 25-Hydroxyon 05-25 Calcidiol [Mass/Vol] 33 ng/mL [facility] Work Phone: Comment on above: .DEFICIENCY: < 20 NG /MLINSUFFICIENCY: 20-29 NG/MLOPTIMUM LEVEL: 30-80 NG/MLPOSSIBLE TOXICITY: > 80 NG/MLTHIS ASSAY ACCURATELY QUANTIFIES THE SUM OFVITAMIN D3, 25-HYDROXY AND VIT D2,25-HYDROXY. [facility] Name ILDEFONSO ROCHA Pathologist: ANA GARCIA MD Date of Procedure: 09/08/2018 Date Received: 09/08/2018 Date Reported 09/10/2018 Submitting Physician: CURT SOUSA MD Location: [facility] Copy To/Referring/Attending: CURT SOUSA MD Other External [...] in toto in one cassette. jmj/09/09/2018 Normal [facility] History and Physical - Surge ry [...] Updated: 08-Sep-2018 12:33 by Curt Sousa) Normal [facility] Preop Checkliston 09-08-2018 Preop Checklist Preop Checklist: Preop Checklist: Arrival [id number] Arrival Time10:52 Procedure TypeColonoscopy NPO [id number] 18:00 ID Band Onyes Allergy Bandno known [...] Language / CommunicationEnglish Electronic Signatures: Vane Oh (SANA) (Signed 08-Sep-2018 11:30) Authored: Preop Checklist Last Updated: 08-Sep-2018 11:30 by Vane Oh (SANA) [facility] Patient Profile - Preop v2on 09-05-2018 Protein mass conc Profile: Initial Info: How to be AddressedChris Spoken Language PreferredEnglish Source of Informationpatient Are you currently using the Personal [facility] Are you interested in learning more about [facility] for the management of your healthyes, information provided Stated Reason for AdmissionColonoscopy Primary Contact Name and NumberAllan Whaley - [phone], Father, he will be back at 1300 Patient [facility] with patient Medications Brought to Hospitalno General Health: Weight in kg129.2 kilogram(s) Weight in dhz465 pound(s) Weight Methodstated Height in cm177.8 centimeter(s) Height in feet5 feet Height in ojsiri63 inch(es) Height Methodstated BMI (kg/m2)40.869 square meter [...] Learning Preferencesskill demonstration Cultural Considerationsnone Developmental Considerationsnone Baptist Considerationsnone Other learner availableno Falls RiskPatient location auto qualifies him/her for HIGH RISK. Are there any cultural, spiritual, adventism practices/values/needs that are important for us to knowno Pain Scalenumerical 0-10 Pain Scale Educationteaching provided Current Pain Level0 = None Acceptable Pain Level5 = Moderate Expression of Pain (nonverbal)none Lifestyle Changes/Adaptations in Response to Painno change Barriers to Reporting Painnone Chronic Painno Information Review: Allergies, Home Meds and Significant Events have been Reviewed and Verified with Patient/Familyyes Electronic Signatures: Vane Oh) (Signed 08-Sep-2018 11:35) Authored: Profile, Additional Information Barbara Farmer) (Signed 05-Sep-2018 10:45) Authored: Profile Last Updated: 08-Sep-2018 11:35 by Vane Oh) Normal [facility] Sleep Lab Reporton 9 Sleep Lab Report [facility] NAME: ILDEFONSO ROCHA [facility] REC #: [id number] DATE OF : 1960 DATE OF SERVICE: 07/05/2018 ROOM: REFERRING PHYSICIAN: OPAL MEDINA MD STUDY TYPE: Split night polysomnogram. HISTORY OF CHIEF COMPLAINT: This is a 58-year-old male with a BMI of 44.48, who has a history of hypertension, asthma and COPD. He complains of restless sleep, snoring and witnessed apneas. His Bellevue Scale score prior to the test was [...] Sharona Vick DO SLEEP DIS[facility] LABOR[facility] Job: [id number] Electronic Signatures: Fallon Vick () (Signed on 09-Jul-2018 13:14) Authored Block Breaker, [facility] (Non-Affiliated) (Entered on 09-Jul-2018 12:55) Entered Last Updated: 09-Jul-2018 13:14 by Fallon Vick () Normal [facility] Vital Signs Date Time Vital Sign Value Performing Clinician Facility 12-09-2024 13:01-0400 Body temperature 98.4 [degF] Dr. Pamela Hernandez MD Work Phone: [facility] 12-09-2024 13:01-0400 Diastolic blood pressure 76 mm[Hg] Dr. Pamela Hernandez MD Work Phone: [facility] 12-09-2024 13:01-0400 Heart rate 84 /min Dr. Pamela Hernandez MD Work Phone: [facility] 12-09-2024 13:01-0400 Respiratory rate 17 /min Dr. Pamela Hernandez MD Work Phone: [facility] 12-09-2024 13:01-0400 SaO2% (BldA) [Mass fraction] 100 % Dr. Pamela Hernandez MD Work Phone: [facility] 12-09-2024 13:01-0400 Systolic blood pressure 132 mm[Hg] Dr. Pamela Hernandez MD Work Phone: [facility] 12-09-2024 10:18-0400 Body height 177.[address] Pamela Hernandez MD Work Phone: [facility] 12-09-2024 10:18-0400 Body mass index (BMI) [Ratio] 40.9 kg/m2 Dr. Pamela Hernandez MD Work Phone: [facility] 12-09-2024 10:18-0400 Body weight 129.[address] Pamela Hernandez MD Work Phone: [facility] 11-30-2024 12:48-0400 Body temperature 97.9 [degF] Dr. Pamela Hernandez MD Work Phone: [facility] 11-30-2024 12:48-0400 Body weight 131.[address] Pamela Hernandez MD Work Phone: [facility] 11-30-2024 12:48-0400 Diastolic blood pressure 98 mm[Hg] Dr. Pamela Hernandez MD Work Phone: [facility] 11-30-2024 12:48-0400 Heart rate 92 /min Dr. Pamela Hernandez MD Work Phone: [facility] 11-30-2024 12:48-0400 Respiratory rate 18 /min Dr. Pamela Hernandez MD Work Phone: [facility] 11-30-2024 12:48-0400 SaO2% (BldA) [Mass fraction] 96 % Dr. Pamela Hernandez MD Work Phone: [facility] 11-30-2024 12:48-0400 Systolic blood pressure 142 mm[Hg] Dr. Pamela Hernandez MD Work Phone: [facility] 02-28-2024 09:46-0400 Body height 173.4 cm Opal Medina MD Work Phone: [facility] 02-28-2024 09:46-0400 Body mass index (BMI) [Ratio] 41.81 kg/m2 Opal Medina MD Work Phone: [facility] 02-28-2024 09:46-0400 Body weight 125.65 kg Opal Medina MD Work Phone: [facility] 02-28-2024 09:46-0400 Diastolic blood pressure 78 mm[Hg] Opal Medina MD Work Phone: [facility] 02-28-2024 09:46-0400 Heart rate 82 /min Opal Medina MD Work Phone: [facility] 02-28-2024 09:46-0400 SaO2% (BldA) [Mass fraction] 96 % Opal Medina MD Work Phone: [facility] 02-28-2024 09:46-0400 Systolic blood pressure 120 mm[Hg] Opal Medina MD Work Phone: [facility] 11-01-2023 09:50-0400 Body height 173.4 cm Opal Medina MD Work Phone: [facility] 11-01-2023 09:50-0400 Body mass index (BMI) [Ratio] 42.62 kg/m2 Opal Medina MD Work Phone: [facility] 11-01-2023 09:50-0400 Body weight 128.1 kg Opal Medina MD Work Phone: [facility] 11-01-2023 09:50-0400 Diastolic blood pressure 74 mm[Hg] Opal Medina MD Work Phone: [facility] 11-01-2023 09:50-0400 Heart rate 79 /min Opal Medina MD Work Phone: [facility] 11-01-2023 09:50-0400 SaO2% (BldA) [Mass fraction] 94 % Opal Medina MD Work Phone: [facility] 11-01-2023 09:50-0400 Systolic blood pressure 122 mm[Hg] Opal Medina MD Work Phone: [facility] 07-31-2023 15:20-0400 Body height 173.4 cm Opal Medina MD Work Phone: [facility] 07-31-2023 15:20-0400 Body mass index (BMI) [Ratio] 42.5 kg/m2 Opal Medina MD Work Phone: [facility] 07-31-2023 15:20-0400 Body weight 127.73 kg Opal Medina MD Work Phone: [facility] 07-31-2023 15:20-0400 Diastolic blood pressure 85 mm[Hg] Opal Medina MD Work Phone: [facility] 07-31-2023 15:20-0400 Heart rate 81 /min Opal Medina MD Work Phone: [facility] 07-31-2023 15:20-0400 SaO2% (BldA) [Mass fraction] 95 % Opal Median MD Work Phone: [facility] 07-31-2023 15:20-0400 Systolic blood pressure 125 mm[Hg] Opal Medina MD Work Phone: [facility] 07-05-2023 10:33-0500 Body height 173.4 cm Opal Medina MD Work Phone: [facility] 07-05-2023 10:33-0500 Body mass index (BMI) [Ratio] 41.87 kg/m2 Opal Medina MD Work Phone: [facility] 07-05-2023 10:33-0500 Body weight 125.83 kg Opal Medina MD Work Phone: [facility] 07-05-2023 10:33-0500 Diastolic blood pressure 72 mm[Hg] Opal Medina MD Work Phone: [facility] 07-05-2023 10:33-0500 Heart rate 80 /min Opal eMdina MD Work Phone: [facility] 07-05-2023 10:33-0500 SaO2% (BldA) [Mass fraction] 95 % Opal Medina MD Work Phone: [facility] 07-05-2023 10:33-0500 Systolic blood pressure 116 mm[Hg] Opal Medina MD Work Phone: [facility] 01-26-2023 20:07-0400 Blood Pressure Cuff Size DR SADIA COLEMAN MD [facility] 01-26-2023 20:07-[address] SADIA COLEMAN MD [facility] 01-26-2023 20:07-[address] SADIA COLEMAN MD [facility] 01-26-2023 20:07-0400 Body temperature 97.7 [degF] DR SADIA COLEMAN MD [facility] 01-26-2023 20:07-0400 Diastolic Blood Pressure Non-Invasive [address] SADIA COLEMAN MD [facility] 01-26-2023 20:07-0400 Heart rate 77 /min DR SADIA COLEMAN MD [facility] 01-26-2023 20:07-0400 Respiratory rate 18 /min DR SADIA COLEMAN MD [facility] 01-26-2023 20:07-0400 Systolic Blood Pressure Non-Invasive [address] SADIA COLEMAN MD [facility] 01-16-2023 12:01-0400 Body temperature 97.88 [degF] DR GRICELDA OLIVER MD [facility] 01-16-2023 12:01-0400 Diastolic Blood Pressure Non-Invasive [address] GRICELDA OLIVER MD [facility] 01-16-2023 12:01-0400 Heart rate 76 /min DR GRICELDA OLIVER MD [facility] 01-16-2023 12:01-0400 Reason For Taking VItal Signs DR GRICELDA OLIVER MD [facility] 01-16-2023 12:01-0400 Respiratory rate 16 /min DR GRICELDA OLIVER MD [facility] 01-16-2023 12:01-0400 Systolic Blood Pressure Non-Invasive [address] GRICELDA OLIVER MD [facility] 01-16-2023 11:33-0400 Body temperature 97.7 [degF] DR GRICELDA OLIVER MD [facility] 01-16-2023 11:33-0400 Diastolic Blood Pressure Non-Invasive [address] GRICELDA OLIVER MD [facility] 01-16-2023 11:33-0400 Heart rate 75 /min DR GRICELDA OLIVER MD [facility] 01-16-2023 11:33-0400 Reason For Taking VItal Signs DR GRICELDA OLIVER MD [facility] 01-16-2023 11:33-0400 Systolic Blood Pressure Non-Invasive [address] GRICELDA OLIVER MD [facility] 01-16-2023 08:05-0400 Body temperature 97.52 [degF] DR GRICELDA OLIVER MD [facility] 01-16-2023 08:05-0400 Diastolic Blood Pressure Non-Invasive [address] GRICELDA OLIVER MD [facility] 01-16-2023 08:05-0400 Heart rate 63 /min DR GRICELDA OLIVER MD [facility] 01-16-2023 08:05-0400 Reason For Taking VItal Signs DR GRICELDA OLIVER MD [facility] 01-16-2023 08:05-0400 Respiratory rate 16 /min DR GRICELDA OLIVER MD [facility] 01-16-2023 08:05-0400 Systolic Blood Pressure Non-Invasive [address] GRICELDA OLIVER MD [facility] 01-16-2023 04:20-0400 Heart rate 84 /min DR GRICELDA OLIVER MD [facility] 01-16-2023 04:20-0400 Respiratory rate 16 /min DR GRICELDA OLIVER MD [facility] 01-15-2023 14:34-0400 Heart rate 76 /min DR GRICELDA OLIVER MD [facility] 01-15-2023 11:15-0400 Heart rate 74 /min DR GRICELDA OLIVER MD [facility] 01-15-2023 10:08-0400 Body height 172.[address] GRICELDA OLIVER MD [facility] 01-15-2023 10:08-0400 Body weight [address] GRICELDA OLIVER MD [facility] 01-15-2023 10:08-0400 Body weight 39.9 kg/m2 DR GRICELDA OLIVER MD [facility] 01-15-2023 08:55-0400 Body temperature 97.52 [degF] DR GRICLEDA OLIVER MD [facility] 01-15-2023 08:45-0400 Respiratory Rate - Anes 6 br/min DR GRICELDA OLIVER MD [facility] 01-15-2023 08:40-0400 Respiratory Rate - Anes 15 br/min DR GRICELDA OLIVER MD [facility] 01-15-2023 08:35-0400 Respiratory Rate - Anes 14 br/min DR GRICELDA OLIVER MD [facility] 09-05-2023 08:30-0400 Body temperature 96.8 [degF] DR GRICELDA OLIVER MD [facility] 01-15-2023 08:15-0400 Body temperature 96.8 [degF] DR GRICELDA OLIVER MD [facility] 01-15-2023 05:40-0400 Body height 172.[address] GRICELDA OLIVER MD [facility] 01-15-2023 05:40-0400 Body temperature 98.06 [degF] DR GRICELDA OLIVER MD [facility] 01-15-2023 05:40-0400 Body weight [address] GRICELDA OLIVER MD [facility] 12-24-2022 10:36-0400 Body height 174 cm Opal Medina MD Work Phone: [facility] 12-24-2022 10:36-0400 Body mass index (BMI) [Ratio] 40.28 kg/m2 Opal Medina MD Work Phone: [facility] 12-24-2022 10:36-0400 Body weight 121.93 kg Opal Medina MD Work Phone: [facility] 12-24-2022 10:36-0400 Diastolic blood pressure 61 mm[Hg] Opal Medina MD Work Phone: [facility] 12-24-2022 10:36-0400 Heart rate 82 /min Opal Medina MD Work Phone: [facility] 12-24-2022 10:36-0400 SaO2% (BldA) [Mass fraction] 97 % Opal Medina MD Work Phone: [facility] 12-24-2022 10:36-0400 Systolic blood pressure 101 mm[Hg] Opal Medina MD Work Phone: [facility] 12-17-2022 08:40-[address] GRICELDA OLIVER MD [facility] 12-17-2022 08:40-[address] GRICELDA OLIVER MD [facility] 12-17-2022 08:40-0400 Body height 172.[address] GRICELDA OLIVER MD [facility] 12-17-2022 08:40-0400 Body weight [address] GRICELDA OLIVER MD [facility] 12-17-2022 08:40-0400 Body weight 39.9 kg/m2 DR GRICELDA OLIVER MD [facility] 12-17-2022 08:40-0400 Diastolic Blood Pressure Non-Invasive [address] GRICELDA OLIVER MD [facility] 12-17-2022 08:40-0400 Heart rate 90 /min DR GRICELDA OLIVER MD [facility] 12-17-2022 08:40-0400 Respiratory rate 18 /min DR GRICELDA OLIVER MD [facility] 12-17-2022 08:40-0400 Systolic Blood Pressure Non-Invasive [address] GRICELDA OLIVER MD [facility] 10-30-2022 11:31-0400 Body height 174 cm Opal Medina MD Work Phone: [facility] 10-30-2022 11:31-0400 Body mass index (BMI) [Ratio] 40.88 kg/m2 Opal Medina MD Work Phone: [facility] 10-30-2022 11:31-0400 Body weight 123.74 kg Opal Medina MD Work Phone: [facility] 10-30-2022 11:31-0400 Diastolic blood pressure 66 mm[Hg] Opal Medina MD Work Phone: [facility] 10-30-2022 11:31-0400 Heart rate 83 /min Opal Medina MD Work Phone: [facility] 10-30-2022 11:31-0400 SaO2% (BldA) [Mass fraction] 95 % Opal Medina MD Work Phone: [facility] 10-30-2022 11:31-0400 Systolic blood pressure 117 mm[Hg] Opal Medina MD Work Phone: [facility] 07-31-2022 13:21-0400 Diastolic blood pressure 66 mm[Hg] Opal Medina MD Work Phone: [facility] 07-31-2022 13:21-0400 Systolic blood pressure 132 mm[Hg] Opal Medina MD Work Phone: [facility] 07-31-2022 10:39-0400 Body height 177.8 cm Opal Medina MD Work Phone: [facility] 07-31-2022 10:39-0400 Body mass index (BMI) [Ratio] 40.69 kg/m2 Opal Medina MD Work Phone: [facility] 07-31-2022 10:39-0400 Body weight 128.64 kg Opal Medina MD Work Phone: [facility] 07-31-2022 10:39-0400 Heart rate 84 /min Opal Medina MD Work Phone: [facility] 07-31-2022 10:39-0400 SaO2% (BldA) [Mass fraction] 97 % Opal Medina MD Work Phone: [facility] 07-11-2022 12:02-0500 Body temperature 97.34 [degF] DR GRICELDA OLIVER MD [facility] 07-11-2022 12:02-0500 Diastolic Blood Pressure Non-Invasive [address] GRICELDA OLIVER MD [facility] 07-11-2022 12:02-0500 Heart rate 78 /min DR GRICELDA OLIVER MD [facility] 07-11-2022 12:02-0500 Reason For Taking VItal Signs DR GRICELDA OLIVER MD [facility] 07-11-2022 12:02-0500 Respiratory rate 14 /min DR GRICELDA OLIVER MD [facility] 07-11-2022 12:02-0500 Systolic Blood Pressure Non-Invasive [address] GRICELDA OLIVER MD [facility] 07-11-2022 07:48-05[address] Pressure Cuff Size DR GRICELDA OLIVER MD [facility] 07-11-2022 07:48-[address] GRICELDA OLIVER MD [facility] 07-11-2022 07:48-[address] GRICELDA OLIVER MD [facility] 07-11-2022 07:48-0500 Body temperature 97.88 [degF] DR GRICELDA OLIVER MD [facility] 07-11-2022 07:48-0500 Diastolic Blood Pressure Non-Invasive [address] GRICELDA OLIVER MD [facility] 07-11-2022 07:48-0500 Heart rate 81 /min DR GRICELDA OLIVER MD [facility] 07-11-2022 07:48-0500 Reason For Taking VItal Signs DR GRICELDA OLIVER MD [facility] 07-11-2022 07:48-0500 Respiratory rate 14 /min DR GRICELDA OLIVER MD [facility] 07-11-2022 07:48-0500 Systolic Blood Pressure Non-Invasive [address] GRICELDA OLIVER MD [facility] 07-11-2022 07:24-0500 Heart rate 71 /min DR GRICELDA OLIVER MD [facility] 07-11-2022 07:24-0500 Respiratory rate 18 /min DR GRICELDA OLIVER MD [facility] 07-11-2022 06:17-0500 Body temperature 97.34 [degF] DR GRICELDA OLIVER MD [facility] 07-11-2022 06:17-0500 Diastolic Blood Pressure Non-Invasive [address] GRICELDA OLIVER MD [facility] 07-11-2022 06:17-0500 Reason For Taking VItal Signs DR GRICELDA OLIVER MD [facility] 07-11-2022 06:17-0500 Systolic Blood Pressure Non-Invasive [address] GRICELDA OLIVER MD [facility] 07-10-2022 10:19-0500 Mean blood pressure 87 mm[Hg] DR GRICELDA OLIVER MD [facility] 07-10-2022 09:49-0500 Body height 172.[address] GRICELDA OLIVER MD [facility] 07-10-2022 09:49-0500 Body weight 126.[address] GRICELDA OLIVER MD [facility] 07-10-2022 09:49-0500 Body weight 42.48 kg/m2 DR GRICELDA OLIVER MD [facility] 07-10-2022 08:41-0500 Body temperature 97.52 [degF] DR GRICELDA OLIVER MD [facility] 07-10-2022 08:35-0500 Respiratory Rate - Anes 15 br/min DR GRICELDA OLIVER MD [facility] 07-10-2022 08:30-0500 Respiratory Rate - Anes 16 br/min DR GRICELDA OLIVER MD [facility] 07-10-2022 08:25-0500 Respiratory Rate - Anes 15 br/min DR GRICELDA OLIVER MD [facility] 07-10-2022 05:46-0500 Body height 172.[address] GRICELDA OLIVER MD [facility] 07-10-2022 05:46-0500 Body temperature 97.52 [degF] DR GRICELDA OLIVER MD [facility] 07-10-2022 05:46-0500 Body weight 126.[address] GRICELDA OLIVER MD [facility] 07-10-2022 05:46-0500 Heart rate 74 /min DR GRICELDA OLIVER MD [facility] 07-05-2022 14:58-0500 Diastolic blood pressure 78 mm[Hg] Opal Medina Work Phone: [facility] Work Phone: 07-05-2022 14:58-0500 Systolic blood pressure 130 mm[Hg] Opal Medina Work Phone: [facility] Work Phone: 07-05-2022 14:45-0500 Body height 177.8 cm Opal Medina Work Phone: [facility] Work Phone: 07-05-2022 14:45-0500 Body mass index (BMI) [Ratio] 40.24 kg/m2 Opla Medina Work Phone: [facility] Work Phone: 07-05-2022 14:45-0500 Body surface area Derived from formula 2.41 m2 Opal Medina Work Phone: [facility] Work Phone: 07-05-2022 14:45-0500 Body weight 127.21 kg Opal Medina Work Phone: [facility] Work Phone: 07-05-2022 14:45-0500 Diastolic blood pressure 87 mm[Hg] Opal Medina Work Phone: [facility] Work Phone: 07-05-2022 14:45-0500 Heart rate 91 /min Opal Medina Work Phone: [facility] Work Phone: 07-05-2022 14:45-0500 SaO2% (BldA) [Mass fraction] 96 % Opal Medina Work Phone: [facility] Work Phone: 07-05-2022 14:45-0500 Systolic blood pressure 134 mm[Hg] Opal Medina Work Phone: [facility] Work Phone: 07-02-2022 10:02-0500 Body height 172.[address] GRICELDA OLIVER MD [facility] 07-02-2022 10:02-0500 Body weight 126.[address] GRICELDA OLIVER MD [facility] 05-25-2022 09:51-0500 Body height 177.8 cm Opal Medina Work Phone: [facility] Work Phone: 05-25-2022 09:51-0500 Body mass index (BMI) [Ratio] 39.67 kg/m2 Opal Medina Work Phone: [facility] Work Phone: 05-25-2022 09:51-0500 Body surface area Derived from formula 2.4 m2 Opal Medina Work Phone: [facility] Work Phone: 05-25-2022 09:51-0500 Body weight 125.42 kg Opal Medina Work Phone: [facility] Work Phone: 05-25-2022 09:51-0500 Diastolic blood pressure 77 mm[Hg] Opal Medina Work Phone: [facility] Work Phone: 05-25-2022 09:51-0500 Heart rate 76 /min Opal Medina Work Phone: [facility] Work Phone: 05-25-2022 09:51-0500 SaO2% (BldA) [Mass fraction] 98 % Opal Medina Work Phone: [facility] Work Phone: 05-25-2022 09:51-0500 Systolic blood pressure 123 mm[Hg] Opal Medina Work Phone: [facility] Work Phone: 03-30-2022 09:56-0500 Diastolic blood pressure 76 mm[Hg] Opal Medina Work Phone: [facility] Work Phone: 03-30-2022 09:56-0500 Systolic blood pressure 118 mm[Hg] Opal Medina Work Phone: [facility] Work Phone: 03-30-2022 09:45-0500 Body mass index (BMI) [Ratio] 40.11 kg/m2 Opal Medina Work Phone: [facility] Work Phone: 03-30-2022 09:45-0500 Body surface area Derived from formula 2.41 m2 Opal Medina Work Phone: [facility] Work Phone: 03-30-2022 09:45-0500 Body weight 126.81 kg Opal Medina Work Phone: [facility] Work Phone: 03-30-2022 09:45-0500 Diastolic blood pressure 88 mm[Hg] Opal Medina Work Phone: [facility] Work Phone: 03-30-2022 09:45-0500 Heart rate 83 /min Opal Medina Work Phone: [facility] Work Phone: 03-30-2022 09:45-0500 SaO2% (BldA) [Mass fraction] 99 % Opal Medina Work Phone: [facility] Work Phone: 03-30-2022 09:45-0500 Systolic blood pressure 134 mm[Hg] Opal Medina Work Phone: [facility] Work Phone: 12-07-2021 15:45-0400 Body mass index (BMI) [Ratio] 41.22 kg/m2 Opal Medina Work Phone: [facility] Work Phone: 12-07-2021 15:45-0400 Body surface area Derived from formula 2.43 m2 Opal Medina Work Phone: [facility] Work Phone: 12-07-2021 15:45-0400 Body weight 130.3 kg Opal Medina Work Phone: [facility] Work Phone: 12-07-2021 15:45-0400 Diastolic blood pressure 80 mm[Hg] Opal Medina Work Phone: [facility] Work Phone: 12-07-2021 15:45-0400 Heart rate 71 /min Opal Medina Work Phone: [facility] Work Phone: 12-07-2021 15:45-0400 SaO2% (BldA) [Mass fraction] 99 % Opal Medina Work Phone: [facility] Work Phone: 12-07-2021 15:45-0400 Systolic blood pressure 125 mm[Hg] Opal Medina Work Phone: [facility] Work Phone: 07-14-2021 10:04-0500 Body mass index (BMI) [Ratio] 42.54 kg/m2 Opal Medina Work Phone: BC-Woouynqhlvbv-Bd sman 210 Work Phone: 07-14-2021 10:04-0500 Body surface area Derived from formula 2.47 m2 Opal Medina Work Phone: LB-Pjoxemuraczb-Mr sman 210 Work Phone: 07-14-2021 10:04-0500 Body weight 134.49 kg Opal Medina Work Phone: IO-Rxssnwupykqt-Fe sman 210 Work Phone: 07-14-2021 10:04-0500 Diastolic blood pressure 73 mm[Hg] Opal Medina Work Phone: UO-Mzhzlnajzbau-Du sman 210 Work Phone: 07-14-2021 10:04-0500 Heart rate 82 /min Opal Medina Work Phone: YJ-Paqsdhaqsmaa-Xg sman 210 Work Phone: 07-14-2021 10:04-0500 SaO2% (BldA) [Mass fraction] 99 % Opal Medina Work Phone: LS-Wybpainldirz-Ax sman 210 Work Phone: 07-14-2021 10:04-0500 Systolic blood pressure 118 mm[Hg] Opal Medina Work Phone: XX-Cmjitgnlutby-Rn sman 210 Work Phone: 06-30-2021 10:50-0500 Body mass index (BMI) [Ratio] 42.76 kg/m2 Opal Medina Work Phone: EG-Rzangnkwmh-Lmza n [id number] Work Phone: 06-30-2021 10:50-0500 Body surface area Derived from formula 2.47 m2 Opal Medina Work Phone: KP-Gtbckmlvko-Dgql n 30105 Work Phone: 06-30-2021 10:50-0500 Body weight 135.17 kg Opal Medina Work Phone: QS-Nyzjhwxzyy-Wgld n [address]234 Work Phone: 06-30-2021 10:50-0500 Diastolic blood pressure 78 mm[Hg] Opal Medina Work Phone: NT-Ymatyxznem-Tfjc n [address]7919 Work Phone: 06-30-2021 10:50-0500 Heart rate 91 /min Opal Medina Work Phone: MY-Txxdfofuym-Znsg n [address]287 Work Phone: 06-30-2021 10:50-0500 Systolic blood pressure 168 mm[Hg] Opal Medina Work Phone: EI-Luucsmwusj-Hnnl n [address]9914 Work Phone: 06-27-2021 07:46-0500 Body temperature 97.34 [degF] AVELINA CHAPA AUTOMOTIVE TIRE TESTING SUPERVISOR-BIOMETRIC TECHNICIAN [facility] 06-27-2021 07:46-0500 Diastolic blood pressure 78 mm[Hg] AVELINA CHAPA AUTOMOTIVE TIRE TESTING SUPERVISOR-BIOMETRIC TECHNICIAN [facility] 06-27-2021 07:46-0500 Heart rate 65 /min AVELINA CHAPA APRN-BIOMETRIC TECHNICIAN [facility] 06-27-2021 07:46-0500 Reason For Taking VItal Signs AVELINA CHAPA APRN-BIOMETRIC TECHNICIAN [facility] 06-27-2021 07:46-0500 Respiratory rate 20 /min AVELINA CHAPA AUTOMOTIVE TIRE TESTING SUPERVISOR-BIOMETRIC TECHNICIAN [facility] 06-27-2021 07:46-0500 Systolic blood pressure 144 mm[Hg] AVELINA FOITH AUTOMOTIVE TIRE TESTING SUPERVISOR-BIOMETRIC TECHNICIAN [facility] 06-27-2021 03:23-0500 Body temperature 98.24 [degF] AVELINA CHAPA AUTOMOTIVE TIRE TESTING SUPERVISOR-BIOMETRIC TECHNICIAN [facility] 06-27-2021 03:23-0500 Diastolic blood pressure 83 mm[Hg] AVELINA CHAPA AUTOMOTIVE TIRE TESTING SUPERVISOR-BIOMETRIC TECHNICIAN [facility] 06-27-2021 03:23-0500 Heart rate 65 /min AVELINA CHAPA AUTOMOTIVE TIRE TESTING SUPERVISOR-BIOMETRIC TECHNICIAN [facility] 06-27-2021 03:23-0500 Mean blood pressure 101 mm[Hg] AVELINA CHAPA AUTOMOTIVE TIRE TESTING SUPERVISOR-BIOMETRIC TECHNICIAN [facility] 06-27-2021 03:23-0500 Reason For Taking VItal Signs AVELINA CHAPA APRN-BIOMETRIC TECHNICIAN [facility] 06-27-2021 03:23-0500 Respiratory rate 20 /min AVELINA CHAPA AUTOMOTIVE TIRE TESTING SUPERVISOR-BIOMETRIC TECHNICIAN [facility] 06-27-2021 03:23-0500 Systolic blood pressure 136 mm[Hg] AVELINA CHAPA AUTOMOTIVE TIRE TESTING SUPERVISOR-BIOMETRIC TECHNICIAN [facility] 06-26-2021 20:02-0500 Body temperature 97.88 [degF] AVELINA CHAPA AUTOMOTIVE TIRE TESTING SUPERVISOR-BIOMETRIC TECHNICIAN [facility] 06-26-2021 20:02-0500 Diastolic blood pressure 94 mm[Hg] AVELINA CHAPA AUTOMOTIVE TIRE TESTING SUPERVISOR-BIOMETRIC TECHNICIAN [facility] 06-26-2021 20:02-0500 Heart rate 76 /min AVELINA CHAPA AUTOMOTIVE TIRE TESTING SUPERVISOR-BIOMETRIC TECHNICIAN [facility] 06-26-2021 20:02-0500 Mean blood pressure 111 mm[Hg] AVELINA CHAPA AUTOMOTIVE TIRE TESTING SUPERVISOR-BIOMETRIC TECHNICIAN [facility] 06-26-2021 20:02-0500 Reason For Taking VItal Signs AVELINA CHAPA AUTOMOTIVE TIRE TESTING SUPERVISOR-BIOMETRIC TECHNICIAN [facility] 06-26-2021 20:02-0500 Respiratory rate 18 /min AVELINA CHAPA AUTOMOTIVE TIRE TESTING SUPERVISOR-BIOMETRIC TECHNICIAN [facility] 06-26-2021 20:02-0500 Systolic blood pressure 145 mm[Hg] AVELINA CHAPA AUTOMOTIVE TIRE TESTING SUPERVISOR-BIOMETRIC TECHNICIAN [facility] 06-26-2021 04:27-0500 Heart rate 71 /min AVELINA CHAPA AUTOMOTIVE TIRE TESTING SUPERVISOR-BIOMETRIC TECHNICIAN [facility] 06-25-2021 19:51-0500 Heart rate 70 /min AVELINA BYERSITH AUTOMOTIVE TIRE TESTING SUPERVISOR-BIOMETRIC TECHNICIAN [facility] 06-24-2021 19:36-0500 Body height 177 cm AVELINA CHAPA AUTOMOTIVE TIRE TESTING SUPERVISOR-BIOMETRIC TECHNICIAN [facility] 06-24-2021 19:36-0500 Body weight 130 kg AVELINA CHAPA AUTOMOTIVE TIRE TESTING SUPERVISOR-BIOMETRIC TECHNICIAN [facility] 06-24-2021 19:36-0500 Body weight 41.5 kg/m2 AVELINA CHAPA AUTOMOTIVE TIRE TESTING SUPERVISOR-BIOMETRIC TECHNICIAN [facility] 06-24-2021 19:31-0500 Heart rate 82 /min AVELINA CHAPA AUTOMOTIVE TIRE TESTING SUPERVISOR-BIOMETRIC TECHNICIAN [facility] 02-17-2021 10:52-0400 Body height 177.8 cm Opal Medina Work Phone: [facility] Work Phone: 02-17-2021 10:52-0400 Body mass index (BMI) [Ratio] 42.47 kg/m2 Opal Medina Work Phone: [facility] Work Phone: 02-17-2021 10:52-0400 Body surface area Derived from formula 2.47 m2 Opal Medina Work Phone: [facility] Work Phone: 02-17-2021 10:52-0400 Body weight 134.27 kg Opal Medina Work Phone: [facility] Work Phone: 02-17-2021 10:52-0400 Diastolic blood pressure 79 mm[Hg] Opal Wongon Work Phone: [facility] Work Phone: 02-17-2021 10:52-0400 Heart rate 71 /min Opal Medina Work Phone: [facility] Work Phone: 02-17-2021 10:52-0400 Respiratory rate 18 /min Opal Medina [facility] Work Phone: 02-17-2021 10:52-0400 Systolic blood pressure 119 mm[Hg] Opal Medina Work Phone: [facility] Work Phone: 09-21-2019 16:55-0400 BMI (Body Mass Index) 43.59 kg/m2 Opal Medina [facility] Work Phone: 09-21-2019 16:55-0400 Body weight 137.8 kg Opal Medina [facility] Work Phone: 09-21-2019 16:55-0400 BP Diastolic 90 mm[Hg] Opal Medina [facility] Work Phone: 09-21-2019 16:55-0400 BP Systolic 130 mm[Hg] Opal Medina [facility] Work Phone: 09-21-2019 16:55-0400 BSA (Body Surface Area) 2.49 m2 Opal Medina [facility] Work Phone: 09-21-2019 16:55-0400 Pulse (Heart Rate) 84 /min Opal Medina [facility] Work Phone: 05-22-2019 11:08-0500 BMI (Body Mass Index) 42.36 kg/m2 Opal Wongon [facility] Work Phone: 05-22-2019 11:08-0500 Body weight 133.93 kg Opal Wongon [facility] Work Phone: 05-22-2019 11:08-0500 BP Diastolic 80 mm[Hg] Opal Gillespie [facility] Work Phone: 05-22-2019 11:08-0500 BP Systolic 130 mm[Hg] Opal Gillespie [facility] Work Phone: 05-22-2019 11:08-0500 BSA (Body Surface Area) 2.46 m2 Opal Medina [facility] Work Phone: 05-22-2019 11:08-0500 Pulse (Heart Rate) 88 /min Opal Medina [facility] Work Phone: 05-08-2019 15:25-0500 BMI [...] Phone: 05-08-2019 15:25-0500 Height 177.8 cm Opal Wongon [facility] Work Phone: 05-08-2019 15:25-0500 Pulse (Heart Rate) 86 /min Opal Wongon [facility] Work Phone: 05-08-2019 15:25-0500 Respiratory Rate 20 /min Opal Medina [facility] Work Phone: 05-08-2019 15:25-0500 0 1 Opal Gillespie [facility] Work Phone: Comment on above: Pain Scale Encounters Encounter Date Encounter Type Care Provider Facility Start: 12-30-2024 ambulatory Pamela Hernandez Facility :[facility] Start: 12-18-2024 ambulatory Pamela Hernandez Facility :[facility] Start: 12-18-2024 Non-patient / Non-visit Dr. Romulo garcia MD -[facility] Start: 12-18-2024 End: 12-18-[address] Pamela Hernandez MD Work Phone: -[facility] Start: 12-18-2024 End: 12-18-[address] Pamela Hernandez MD -[facility] Work Phone: Start: 12-18-2024 End: 12-18-2024 ambulatory Pamela Hernandez Facility:[facility] Start: 12-09-2024 End: 12-09-2024 Emergency department patient visit Dr. Pamela Hernandez MD Work Phone: -Emergency Department Work Phone: Start: 12-02-2024 End: 12-02-[address] Pamela Hernandez MD Work Phone: -Laboratory [facility] Start: 12-02-2024 End: 12-02-[address] Pamela Hernandez MD -[facility] Start: 12-02-2024 End: 12-02-2024 ambulatory Pamela Hernandez Facility:[facility] Start: 11-30-2024 End: 11-30-[address] Pamela Hernandez MD -[facility] Work Phone: Start: 11-30-2024 End: 11-30-2024 ambulatory Pamela Hernandez [facility] Start: 02-28-2024 End: 02-28-2024 [...] Opal Medina MD Work Phone: [facility] Work Phone: Start: 02-28-2024 End: 02-28-2024 ambulatory [facility] Start: 02-28-2024 End: 02-28-2024 Encounter for general adult medical examination without abnormal findings [facility] Start: 11-01-2023 End: 11-01-2023 Office outpatient [...] nicotine-induced disorder Start: 10-29-2023 End: 10-29-2023 ambulatory [facility] Start: 09-23-2023 End: 09-23-2023 Subsequent hospital visit by physician Tariq Zheng [facility] Comment on above: Vasovagal syncope; Syncope and collapse Start: 09-23-2023 End: 09-23-2023 ambulatory [facility] Start: 09-04-2023 End: 09-04-2023 Subsequent hospital visit by physician Nancy Snowden [address] 1 [facility] Comment on above: Vasovagal syncope Start: 09-04-2023 End: 09-04-2023 ambulatory [facility] Start: 08-26-2023 End: 08-26-2023 ambulatory [facility] Start: 08-14-2023 End: 08-14-2023 Subsequent hospital visit by physician Med Echo/Stress [facility] Comment on above: Vasovagal syncope Start: 08-14-2023 End: 08-14-2023 ambulatory [facility] Start: 07-31-2023 End: 07-31-2023 Office outpatient [...] episode (CMS/HCC) Start: 07-01-2023 End: 07-01-2023 ambulatory [facility] Start: 07-01-2023 End: 07-01-2023 Encounter for general adult medical examination without abnormal findings [facility] Start: 01-26-2023 End: 01-26-2023 Emergency department patient visit DR SADIA COLEMAN MD Facility:B Start: 01-26-2023 End: 01-26-2023 Emergency department patient visit DR SADIA COLEMAN MD [facility] Start: 01-15-2023 End: 01-16-2023 ambulatory BECK PECK AUTOMOTIVE TIRE TESTING SUPERVISOR-BIOMETRIC TECHNICIAN Facility:B Start: 01-15-2023 End: 01-16-[address] GRICELDA OLIVER MD [facility] Start: 01-07-2023 End: 01-08-[address] OPAL MEDINA MD Facility:B Start: 01-07-2023 End: 01-07-[address] GRICELDA OLIVER MD [facility] Start: 12-24-2022 End: 12-24-2022 Office [...] Opal Medina MD Work Phone: [facility] Work Phone: Start: 12-17-2022 End: 12-18-[address] OPAL MEDINA MD Facility:B Start: 12-17-2022 End: 12-17-[address] GRICELDA OLIVER MD [facility] Start: 12-09-[address] OPAL [...] Start: 07-10-2022 End: 07-11-2022 ambulatory RAINE GARCIA APRN-BIOMETRIC TECHNICIAN Facility:B Start: 07-10-2022 End: 07-11-[address] GRICELDA OLIVER MD [facility] Start: 07-05-2022 Office outpatient vi sit 25 minutes Opal Medina Work Phone: [facility] Work Phone: Start: 07-05-[address] Opal Medina Facility:[id number] Start: 07-02-2022 End: 07-03-[address] OPAL MEDINA MD Facility:B Start: 07-02-2022 End: 07-03-[address] OPAL MEDINA MD Facility:B Start: 07-02-2022 End: 07-02-[address] GRICELDA OLIVER MD [facility] Start: 06-13-2022 Patient encounter procedure Opal Medina Work Phone: [facility] Work Phone: Start: 05-29-2022 End: 05-30-[address] OPAL MEDINA MD Facility:B Start: 05-25-[address] Opal Medina Facility:[id number] Start: 05-25-2022 Office outpatient vi sit 25 minutes Opal Medina Work Phone: [facility] Work Phone: Start: 05-25-[address] Opal Rubalcava head [facility] Facility:[id number] Start: 05-20-2022 Chart Update Opal Medina Work Phone: [facility] Work Phone: Start: 05-07-2022 End: 05-08-[address] OPAL MEDINA MD Facility:B Start: 05-07-2022 End: 05-07-2022 Patient encounter procedure ELISEO BRAXTON DO [facility] Start: 05-01-2022 AUDIT Opal Medina Work Phone: [facility] Work Phone: Start: 04-30-[address] OPAL MEDINA MD Fa cility:B Start: 04-27-2022 End: 04-28-[address] OPAL MEDINA MD Facility:B Start: 03-30-2022 FU, Provider: Opal Medina, Status: Pen, Time: 10:00 AM Opal Medina Work Phone: [facility] Work Phone: Start: 03-30-2022 Office outpatient vi sit 25 minutes Opal Medina Work Phone: [facility] Work Phone: Start: 03-30-[address] Opal Rubalcava [facility] Facility:[id number] Start: 03-28-2022 AUDIT Opal Medina Work Phone: [facility] Work Phone: Start: 01-18-[address] Gricelda Guardado Facility:[id number] Start: 01-18-2022 Office outpatient vi sit 25 minutes Opal Medina Work Phone: AM-Oamicmuixnkm-Dctvy n 210 Work Phone: Start: 12-07-2021 Office outpatient vi sit 25 minutes Opal Medina Work Phone: [facility] Work Phone: Start: 12-07-[address] Opal Rubalcava [facility] Adam Facility:[id number] Start: 11-08-2021 Chart Update Opal Medina Work Phone: [facility] [place] [facility] DO Work Phone: Start: 10-13-2021 Patient encounter procedure Opal Medina Work Phone: CZ-Ivjfmhdkuuvg-Nbjaf a Work Phone: Start: 10-13-[address] Gricelda Guardado Facility:[id number] Start: 10-11-[address] Opal Rubalcava [facility] Adam Facility:[id number] Start: 07-14-2021 Patient encounter procedure Opal Medina Work Phone: TY-Snqggvmeruun-Pmiqw n 210 Work Phone: Start: 07-14-[address] Opal Medina Facility:[id number] Start: 06-30-2021 Office outpatient vi sit 25 minutes Opal Medina Work Phone: EQ-Utjgtgjfgq-Ylsfv [id number] Work Phone: Start: 06-24-2021 End: 06-27-2021 Observation [facility]EL[facility]A [facility] Start: 04-14-2021 Patient encounter procedure Opal Medina Work Phone: ZE-Ucpqivuvebkb-Cplcz a Work Phone: Start: 02-17-2021 Office outpatient vi sit 25 minutes Opal M Gillespie Work Phone: [facility] Work Phone: Start: 01-13-2021 Patient encounter procedure Opal Medina Work Phone: QT-Jcktzyphpqqf-Jjwoi a Work Phone: Start: 09-21-2019 Patient encounter [...] End: 09-08-2018 Patient encounter procedure CURT SOUSA Facility:[facility] Start: 07-21-2018 Patient encounter procedure Opal Medina [facility] Work Phone: Start: 07-05-2018 End: 07-05-2018 Patient encounter procedure OPAL MEDINA [facility] Start: 06-09-2018 Patient encounter procedure Opal Medina [...] Date Procedure Procedure Detail Performing Clinician Start: 12-18-[address] Pamela Hernandez MD Work Phone: Start: 12-09-2024 Ultrasound of scrotu m with [...] US CAROTID JIM RY DUPLEX BILATERAL OPAL MEDINA Start: 09-23-2023 Duplex scan extracra nial art compl bi study Opal Medina MD Work Phone: Start: 09-04-2023 CT HEAD WO IV CONTRAST OPAL MEDINA Start: 09-04-2023 Ct head/brain w/o co ntrast material Opal Medina MD Work Phone: Start: 08-26-2023 Comprehensive metabo lic 2000 panel - Serum or Plasma OPAL ADMA Start: 08-26-2023 Magnesium [Mass/volu me] in Serum or Plasma OPAL ADAM Start: 08-14-2023 TRANSTHORACIC ECHO ( TTE) LIMITED OPLA ADAM Start: 08-14-2023 Echo transthorc r-t 2d w/wo m-mode rec f-up/lmtd Opal Medina MD Work Phone: Start: 07-01-2023 CBC panel - Blood by Automated count OPAL WONGON Start: 07-01-2023 Comprehensive metabo lic 2000 panel - Serum or Plasma OPAL ADAM Start: 07-01-2023 Lipid panel OPAL WONG ON Start: 07-01-2023 TSH WITH REFLEX TO F REE T4 IF ABNORMAL OPAL ADAM Start: 07-01-2023 VITAMIN D 25-HYDROXY,TOTAL OPAL ADAM Start: 07-01-2023 Lipid 1996 panel - S obdulia or Plasma Opal Medina MD Work Phone: Start: 07-10-[address] GRICELDA OLIVER MD Comment on above: ROBOTIC ASSISTED LEF T KNEE ATHROPLASTY Start: 05-18-2022 Lipid 1995 panel - S obdulia or Plasma Opal Medina MD Work Phone: Start: 10-11-2021 Follow-up visit Start: 07-17-2021 Abscess (disorder) BOWEN BRAXTON DO Comment on above: I&D SCROTAL ABSCESS (OFFICE) Start: 02-08-2020 Colonoscopy Opal cool MD Work Phone: Start: 09-24-2019 Culture bacterial bl ood aerobic w/id isolates Opal Gillespie Start: 09-24-2019 Culture bacterial quanttative colony count urine Opal Adam Start: 09-24-2019 Urnls dip stick/tabl et rgnt auto w/o microscopy Opal Adam Start: 09-24-2019 Xray Chest 2 View PA + Lateral Opal Adam Start: 09-23-2019 C-reactive protein h igh sensitivity Opal Adam Start: 09-21-2019 Blood count complete auto&auto difrntl wbc Opal Adam Start: 09-08-[address] endoscopic px scr [facility] Curt Sousa Start: 09-08-2018 Colsc flx w/rmvl of tumor polyp lesion snare tq Curt Sousa Excision of melanoma AVELINA CHAPA AUTOMOTIVE TIRE TESTING SUPERVISOR-BIOMETRIC TECHNICIAN Hernia repair Opal Medina Comment on above: bilat repaired after ; History of hernia repair SETH CHAPA AUTOMOTIVE TIRE TESTING SUPERVISOR-BIOMETRIC TECHNICIAN Comment on above: occured as Plan of Treatment Date Care Activity Detail Author Start: 08-08-2030 DTaP/Tdap/Td Vaccine s (2 - Td or Tdap) DTaP/Tdap/Td Vaccines (2 - Td or Tdap) [facility] Start: 02-07-2030 Screening for malignant neoplasm of colon [facility] Start: 10-28-2028 Lipid panel Lipid Panel [facility] Start: 07-01-2028 Lipid panel Lipid Panel [facility] Start: 05-18-2027 Lipid panel Lipid Panel [facility] Start: 12-09-2024 [facility] Start: 07-03-2024 End: 07-03-2024 Patient encounter procedure 07/03/2024 10:00 AM EST Office Visit [facility] [address] [address] Opal Medina MD [address] [facility] [address] [place] [address] [facility] Start: 05-18-2024 End: 08-28-2024 25-hydroxyvitamin D3 [Mass/volume] in Serum or Plasma Vitamin D 25-Hydroxy,Total (for eval of Vitamin D levels) Lab Routine Annual physical exam Expected: 05/18/2024, Expires: 08/28/2024 [facility] Work Phone: Comment on above: Expected: 05/18/2024 , Expires: 08/28/2024 Start: 05-18-2024 End: 02-27-2025 CBC panel - Blood by Automated count CBC Lab Routine Annual physical exam Expected: 05/18/2024, Expires: 02/27/2025 [facility] Service Area Work Phone: Comment on above: Expected: 05/18/2024 , Expires: 02/27/2025 Start: 05-18-2024 End: 08-28-2024 Comprehensive metabolic 2000 panel - Serum or Plasma Comprehensive metabolic panel Lab Routine Annual physical exam Expected: 05/18/2024, Expires: 08/28/2024 [facility] Work Phone: Comment on above: Expected: 05/18/2024 , Expires: 08/28/2024 Start: 05-18-2024 End: 08-28-2024 Lipid 1996 panel - Serum or Plasma Lipid panel Lab Routine Annual physical exam Expected: 05/18/2024, Expires: 08/28/2024 [facility] Work Phone: Comment on above: Expected: 05/18/2024 , Expires: 08/28/2024 Start: 05-18-2024 End: 08-28-2024 Tsh With Reflex To Free T4 If Abnormal Tsh With Reflex To Free T4 If Abnormal Lab Routine Annual physical exam Expected: 05/18/2024, Expires: 08/28/2024 [facility] Work Phone: Comment on above: Expected: 05/18/2024 , Expires: 08/28/2024 Start: 02-28-2024 End: 02-28-2024 Patient encounter procedure 02/28/2024 10:00 AM EDT Office Visit [facility] [address] [place] [phone] Opal Medina MD [address] [facility] [address] [place] [address] [facility] Start: 01-12-2024 COVID-19 Vaccine ( season) COVID-19 Vaccine ( season) [facility] Start: 11-01-2023 End: 11-01-2023 Patient encounter procedure 11/01/2023 10:00 AM EDT Office Visit [facility] [address] [place] [phone] Opal Medina MD [address] [facility] [address] [place] [address] [facility] Start: 10-03-2023 End: 07-05-2024 Hepatic function 2000 panel - Serum or Plasma Hepatic function panel Lab Routine Hypercholesterolemia Expected: 10/03/2023 (Approximate), Expires: 07/05/2024 [facility] Work Phone: Comment on above: Expected: 10/03/2023 (Approximate), Expires: 07/05/2024 Start: 10-03-2023 End: 07-05-2024 Lipid 1996 panel - Serum or Plasma Lipid panel Lab Routine Hypercholesterolemia Expected: 10/03/2023 (Approximate), Expires: 07/05/2024 [facility] Service Area Work Phone: Comment on above: Expected: 10/03/2023 (Approximate), Expires: 07/05/2024 Start: 09-23-2023 End: 09-23-2023 Patient encounter procedure 09/23/2023 11:00 AM EDT Appointment [facility] [address] [place] [phone] [facility] Start: 08-14-2023 End: 08-14-2023 Patient encounter procedure 08/14/2023 2:00 PM EDT Appointment [facility] [address] [place] [phone] [facility] Start: 07-31-2023 End: 07-30-2025 US Heart Transthoracic Transthoracic Echo Limited Echocardiography Routine Vasovagal syncope Expected: 07/31/2023 (Approximate), Expires: 07/30/2025 [facility] Service Area Work Phone: Comment on above: Expected: 07/31/2023 (Approximate), Expires: 07/30/2025 Start: 03-24-2023 Pneumococcal Vaccine : Pediatrics (0 to 5 Years) and At-Risk Patients (6 to 64 Years) (2 - PCV) Pneumococcal Vaccine: Pediatrics (0 to 5 Years) and At-Risk Patients (6 to 64 Years) (2 - PCV) [facility] Start: 02-26-2023 End: 02-26-2023 Patient encounter procedure 02/26/2023 11:30 AM EDT Office Visit [facility] [address] [facility] [place] [phone] Opal Medina MD [address] [facility] [address] [place], [place] [phone] [facility] Start: 01-11-2023 COVID-19 Vaccine ( season) COVID-19 Vaccine ( season) [facility] Start: 01-11-2023 COVID-19 Vaccine ( season) COVID-19 Vaccine ( season) [facility] Start: 01-11-2023 Influenza vaccination Influenza Vacc ine (#1) [facility] Start: 11-26-2022 End: 11-26-2022 Patient encounter procedure 11/26/2022 11:30 AM EDT Office Visit [facility] [address] [place] [phone] Opal Medina MD [address] [facility] [address] [place], [place] [phone] [facility] Start: 10-30-2022 End: 10-30-2022 Patient encounter procedure 10/30/2022 11:30 AM EDT Office Visit [facility] [address] [facility] [place] [phone] Opal Medina MD [address] [facility] [address] [place], [place] [phone] [facility] Start: 08-15-2022 EPV, Provider: Opal Medina, Status: Pen, Time: 10:00 AM EPV, Provider: Opal Medina, Status: Pen, Time: 10:00 AM [facility] Medicine [facility] Work Phone: Start: 05-25-2022 EPV, Provider: Opal Medina, Status: Pen, Time: 10:00 AM EPV, Provider: Opal Medina, Status: Pen, Time: 10:00 AM [facility] Work Phone: Start: 05-19-2022 COVID-19 Vaccine (5 - Booster for Moderna series) COVID-19 Vaccine (5 - Booster for Moderna series) [facility] Start: 04-27-2022 INJECTION, Provider: Gricelda Guardado, Status: Pen, Time: 11:30 AM INJECTION, Provider: Gricelda Guardado, Status: Pen, Time: 11:30 AM KG-Gflltdsqivzl-E [facility] 210 Work Phone: Start: 2022 RSV High Risk: (Elderly (60+) or Population) (1 - Risk 60-74 years 1-dose series) RSV High Risk: (Elderly (60+) or Population) (1 - Risk 60-74 years 1-dose series) [facility] Start: 2022 RSV patient s and/or patients aged 60+ years (1 - 1-dose 60+ series) RSV patients and/or patients aged 60+ years (1 - 1-dose 60+ series) [facility] Start: 03-30-2022 FUV, Provider: Opal Medina, Status: Pen, Time: 10:00 AM FUV, Provider: Opal Medina, Status: Pen, Time: 10:00 AM [facility] Work Phone: Start: 01-18-2022 INJECTION, Provider: Gricelda Guardado, Status: Pen, Time: 4:30 PM INJECTION, Provider: Gricelda Guardado, Status: Pen, Time: 4:30 PM DZ-Lbpwgntdepra-Z [facility] 130 DO Work Phone: Start: 01-18-2022 INJECTION, Provider: Yuli Sparrow, Status: Pen, Time: 4:15 PM INJECTION, Provider: Yuli Sparrow, Status: Pen, Time: 4:15 PM [facility] Work Phone: Start: 01-12-2022 INJECTION, Provider: Gricelda Guardado, Status: Pen, Time: 10:00 AM INJECTION, Provider: Gricelda Guardado, Status: Pen, Time: 10:00 AM MS-Atjivfhiuste-V radha Work Phone: Start: 10-13-2021 INJECTION, Provider: Gricelda Guardado, Status: Pen, Time: 9:50 AM INJECTION, Provider: Gricelda Guardado, Status: Pen, Time: 9:50 AM BD-Cvesrrmdjbcz-V isman 210 Work Phone: Start: 10-11-2021 EPV, Provider: Opal Medina, Status: Pen, Time: 10:00 AM EPV, Provider: Opal Medina, Status: Pen, Time: 10:00 AM BF-Pwgacmdtzdnc-K isman 210 Work Phone: Start: 07-14-2021 EPV, Provider: Opal Medina, Status: Pen, Time: 10:15 AM EPV, Provider: Opal Medina, Status: Pen, Time: 10:15 [place] [address] Work Phone: Start: 07-14-2021 INJECTION, Provider: Gricelda Guardado, Status: Pen, Time: 9:40 AM INJECTION, Provider: Grcielda Guardado, Status: Pen, Time: 9:40 AM MU-Fbrxdsulpoev-I radha Work Phone: Start: 06-30-2021 Screening for malignant neoplasm of colon FIT-DNA (Cologuard) [facility] Start: 06-16-2021 FUV, Provider: Opal Medina, Status: Pen, Time: 10:30 AM FUV, Provider: Opal Medina, Status: Pen, Time: 10:30 AM -[facility] Work Phone: Start: 04-14-2021 FUV, Provider: Gricelda Guardado, Status: Pen, Time: 9:50 AM FUV, Provider: Gricelda Guardado, Status: Pen, Time: 9:50 AM TN-Rgfnevphmmcc-A radha Work Phone: Start: 02-17-2021 FUV, Provider: Opal Medina, Status: Pen, Time: 10:30 AM FUV, Provider: Opal Medina, Status: Pen, Time: 10:30 AM IL-Ebjivndhrlzi-C radha Work Phone: Start: 09-24-2019 Xray Chest 2 V iew PA + Lateral -[facility] Work Phone: Start: 2012 Screening for malignant neoplasm of lung Lung Cancer Screening [facility] Start: 07-16-1999 Hepatitis B Vaccines (3 of 3 - 19+ 3-dose series) Hepatitis B Vaccines (3 of 3 - 19+ 3-dose series) [facility] Start: 07-13-1999 Hepatitis A Vaccines (2 of 2 - Risk 2-dose series) Hepatitis A Vaccines (2 of 2 - Risk 2-dose series) [facility] Start: 07-13-1999 Hepatitis B Vaccines (3 of 3 - 19+ 3-dose series) Hepatitis B Vaccines (3 of 3 - 19+ 3-dose series) [facility] Start: 1980 Diabetes mellitus screening Diabetes Screening [facility] Start: 1980 Hepatitis C screening Hepatitis C Sc reening [facility] Start: 1963 MMR Vaccines (1 of 1 - Standard series) MMR Vaccines (1 of 1 - Standard series) [facility] Start: 1962 Examination of skin Derm Melanoma Sk in Check [facility] Start: 1962 HIV screening HIV Screening [facility] Start: 1962 Screening for malignant neoplasm of colon [facility] Start: 1962 Yearly Adult Physical Yearly Adult P hysical [facility] Abdominal aortic aneurysm screening [facility] CT Chest [facility] Patient Education ED Hydrocele, Type Not Specified [facility] Work Phone: Tobacco use cessatio n education [facility] US.doppler Lower extremity vein [facility] Work Phone: NEGATED: Highlighted row has been ruled out! Planned Goals not documented [facility] Work Phone: Immunizations Immunization Date Immunization Notes Care Provider Afsaneh villavicencio 02-28-2024 influenza, seasonal, injectable, preservative free Opal Medina MD Work Phone: [facility] Work Phone: 03-01-2023 influenza, injectabl e, quadrivalent, preservative free Opal Medina MD Work Phone: [facility] 03-24-2022 influenza virus vacc ine, unspecified formulation DR GRICELDA OLIVER MD [facility] 03-24-2022 influenza, injectabl e, quadrivalent, preservative free Opal Medina Work Phone: [facility] 03-24-2022 influenza, seasonal, injectable Opal Medina Work Phone[facility] Work Phone: Comment on above: Series: 03-24-2022 Moderna COVID-19 Biv al Booster 50 MCG/0.5ML Intramuscular Suspension Opal Medina Work Phone: [facility] Comment on above: Series: 03-24-2022 Pfizer COVID-19 vacc ine, bivalent, age 5y-11y (10 mcg/0.2 mL) Opal Medina MD Work Phone: [facility] Work Phone: 03-24-2022 pneumococcal 20-josé miguel nt conjugate vaccine DR GRICELDA OLIVER MD [facility] 03-24-2022 pneumococcal polysaccharide vaccine, 23 valent Opal Medina Work Phone[facility] Work Phone: Comment on above: Series: 03-24-2022 Prevnar 20 0.5 ML Intramuscular Suspension Prefilled Syringe Opal Medina Work [facility] Work Phone: 03-24-2022 SARS-CoV-2 (CV19)mRNA-[address] GRICELDA OLIVER MD [facility] 03-24-2022 SARSCoV2 (CV19)mRNA-1273(6y+ bival miguel DR GRICELDA OLIVER MD [facility] 09-24-2021 Moderna COVID-19 Vac cine 100 MCG/0.5ML Intramuscular Suspension Opal Medina Work Phone: [facility] 09-24-2021 zoster vaccine recombinant Opal Medina Work Phone: [facility] 05-03-2021 Moderna COVID-19 Vac cine 100 MCG/0.5ML Intramuscular Suspension Opal Medina Work Phone: [facility] 05-03-2021 zoster vaccine recombinant Opal Medina Work Phone: [facility] 02-17-2021 influenza virus vacc ine, unspecified formulation DR GRICELDA OLIVER MD [facility] 02-17-2021 influenza, injectabl e, quadrivalent, contains preservative; Translations: [Flulaval Quadrivalent Intramuscular Suspension] Opal Medina Work Phone[facility] Work Phone: Comment on above: Series: 02-17-2021 influenza, injectabl e, quadrivalent, preservative free Dr. Pamela Hernandez MD Work Phone: [facility] 02-17-2021 influenza, seasonal, injectable Opal Medina MD Work Phone: [facility] Work Phone: 09-15-2020 Moderna COVID-19 Vac cine 100 MCG/0.5ML Intramuscular Suspension Opal Medina Work Phone: [facility] Comment on above: Result Comment: 2022: TPV50 08-10-2020 Moderna COVID-19 Vac cine 100 MCG/0.5ML Intramuscular Suspension Opal Medina Work Phone: [facility] Comment on above: Result Comment: 2022: TPV50 08-08-2020 tetanus toxoid, redu elsa diphtheria toxoid, and acellular pertussis vaccine, adsorbed; Translations: [Boostrix (Tdap)] AVELINA CHAPA APRNWRENTH[facility] DEVELOPMENTAL C[facility] 01-25-2020 influenza virus vacc ine, unspecified formulation DR GRICELDA OLIVER MD [facility] 01-25-2020 influenza, injectabl e, quadrivalent, preservative free; Translations: [Flulaval Quadrivalent 0.5 ML Intramuscular Suspension Prefilled Syringe] Opal Medina Work Phone: [facility] Comment on above: Series: 01-25-2020 influenza, seasonal, injectable Opal Medina MD Work Phone: [facility] Work Phone: 01-10-2019 influenza virus vacc ine, unspecified formulation DR GRICELDA OLIVER MD [facility] 01-10-2019 influenza, injectabl e, quadrivalent, preservative free Opal Medina Work Phone: [facility] 01-31-2018 influenza, injectabl e, quadrivalent, preservative free; Translations: [Flulaval Quadrivalent 0.5 ML Intramuscular Suspension Prefilled Syringe] Opal Medina [facility] Comment on above: Series: 01-31-2018 influenza virus vacc ine, unspecified formulation DR GRICELDA OLIVER MD [facility] 01-31-2018 influenza, seasonal, injectable Opal Medina MD Work Phone: [facility] Work Phone: 03-10-2017 influenza virus vacc ine, unspecified formulation DR GRICELDA OLIVER MD [facility] 03-10-2017 influenza, injectabl e, quadrivalent, preservative free Opal M Adam Work Phone: [facility] 02-14-1999 hepatitis B vaccine, adult dosage Opal M Adam Work Phone: [facility] 02-14-1999 influenza virus vacc ine, whole virus Opal M Adam Work Phone: [facility] 02-14-1999 influenza, injectabl e, quadrivalent, preservative free Dr. Pamela Hernandez MD Work Phone: [facility] 01-12-1999 hepatitis A vaccine, pediatric/adolescent dosage, [address] Pamela Hernandez MD Work Phone: [facility] 01-12-1999 hepatitis A vaccine, unspecified formulation Opal M Adam Work Phone: [facility] 01-12-1999 hepatitis B vaccine, adult dosage Opal M Adam Work Phone: [facility] 01-12-1999 hepatitis A and hepatitis B vaccine [address] Work Phone: Payers Date Payer Category Payer Self-pay 2024 Unknown [id number] 2023 Managed Care (Private) [facility] [id number] 2023 Unknown 2023 Unknown [id number] 2018 Private Health Insurance [facility] [id number] 2018-Present [address] [place] [address] [id number]. [id number] 2018 Private Health Insurance [id number] 1962 Unknown [id number] 2.16840.1.242638.3.579.2. 662 1962 Unknown [id number] 2.16840.1.839584.3.579.2. 355 1962 Unknown [id number] 2.16840.1.978942.3.579.2. 1068 1962 Unknown [id number] 2.16840.1.668697.3.579.2. 356 1962 Unknown [id number] 2.16840.1.225654.3.579.2. 356 1962 Unknown [id number] 2.16840.1.533547.3.579.2. 356 1962 Unknown [id number] 2.16.840.1.637528.3.579.2. 356 1962 Unknown [id number] 2.16.840.1.949249.3.579.2. 356 1962 Unknown [id number] 2.16.840.1.824847.3.579.2. 356 1962 Unknown [id number] 2.16.840.1.118054.3.579.2. 356 1962 Unknown [id number] 2.16.840.1.198013.3.579.2. 356 1962 Unknown [id number] 2.16.840.1.750599.3.579.2. 356 1962 Unknown [id number] 2.16.840.1.617577.3.579.2. 356 1962 Unknown [id number] 2.16.840.1.595358.3.579.2. 356 1962 Unknown [id number] 2.16.840.1.484629.3.579.2. 356 1962 Unknown [id number] 2.16.840.1.454826.3.579.2. 627 1962 Unknown [id number] 2.16.840.1.819312.3.579.2. 627 1962 Unknown [id number] 2.16.840.1.666409.3.579.2. 627 1962 Unknown [id number] 2.16.840.1.391116.3.579.2. 627 1962 Unknown [id number] 2.16.840.1.741247.3.579.2. 627 1962 Unknown [id number] 2.16.840.1.352442.3.579.2. 627 1962 Unknown [id number] 2.16.840.1.642904.3.579.2. 627 1962 Unknown [id number] 2.16.840.1.604492.3.579.2. 627 1962 Unknown [id number] 2.16.840.1.777348.3.579.2. 627 1962 Unknown [id number] 2.16.840.1.837649.3.579.2. 627 1962 Unknown [id number] 2.16.840.1.532520.3.579.2. 627 1962 Unknown [id number] 2.16.840.1.375307.3.579.2. 627 1962 Unknown [id number] 2.16.840.1.205787.3.579.2. 627 1962 Unknown [id number] 2.16.840.1.005841.3.579.2. 627 1962 Unknown [id number] 2.16.840.1.324951.3.579.2. 1245 1962 Unknown [id number] 2.16.840.1.162078.3.579.2. 124 1962 Unknown [id number] 2.16.840.1.533792.3.579.2. 124 1962 Unknown [id number] 2.16.840.1.977537.3.579.2. 124 1962 Unknown [id number] 2.16.840.1.970637.3.579.2. 1244 1962 Unknown [id number] 2.16.840.1.361712.3.579.2. 124 1962 Unknown [id number] 2.16.840.1.279844.3.579.2. 1244 Private Health Insurance [id number] Unknown [id number] Unknown [id number] 2.16.840.1.330597.3.579.2. 462 Unknown [id number] 2.16.840.1.176293.3.579.2. 462 Unknown [id number] 2.16.840.1.747315.3.579.2. 462 Unknown [id number] 2.16.840.1.205153.3.579.2. 462 Unknown [id number] 2.16.840.1.278167.3.579.2. 462 Unknown [id number] 2.16.840.1.474643.3.579.2. 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 Type: Cigarettes. [facility] Ex-smoker (finding) [facility] Sex Assigned At [facility] Start: 07-10-2022 End: 01-15-2023 Tobacco smoking status Light tobacco smoker (finding) [facility] Start: 07-31-2022 End: 12-16-2024 Tobacco smoking status ORIS Smokes tobacco daily [facility] Start: 05-13-1979 History of tobacco use Cigarette Smoker [facility] Work Phone: Start: 07-31-2022 End: 08-26-2023 Tobacco use and exposure Smokeless tobacco non-user [facility] Work Phone: Start: 07-31-2022 End: 10-30-2022 Alcohol intake Lifetime non-drinker (finding) [facility] Work Phone: Start: 07-31-2022 End: 10-30-2022 Tobacco use panel [facility] Work Phone: Start: 1960 Sex Assigned At Not on file [facility] Work Phone: Start: 07-21-2022 End: 11-01-2023 Exposure to SARS-CoV-2 (event) Not sure [facility] Start: 08-26-2023 Tobacco Comment Smokes around 1/2 pack per week [facility] Work Phone: Start: 02-28-2024 Tobacco Comment Smokes around 1/2 pack per week. Currently smoking 3 cig per week 02/28/24. [facility] Work Phone: Start: 02-18-2024 End: 02-28-2024 Exposure to SARS-CoV-2 (event) Unable to assess [facility] Start: 1960 Sex Assigned At Male [facility] NEGATED: Highlighted row - - [facility] Work Phone: NEGATED: Highlighted rowStart: NINF History of tobacco use Passive smoker [facility] Work Phone: Functional Status Date Assessment Result Facility 01-26-2023 Functional Status ID band on, Call device within reach, Bed in low position, Wheels locked, Upper/Half-Length side-rails up, Phone within reach, Safety level maintained [facility] 01-16-2023 Functional Status Mod I Yadiel [facility] 01-16-2023 Functional Status Door open, Room check performed [facility] 01-16-2023 Functional Status 3 Yadiel [facility] 01-16-2023 Functional Status Yadiel [facility] 01-16-2023 Functional Status Yadiel [facility] 01-15-2023 Functional Status Yadiel [facility] 01-15-2023 Functional Status Single level home [facility] 01-15-2023 [facility] Functional Status Abduction pill ow, ice on [facility] 01-15-2023 [facility] Functional Status Maintained, More than 8 hours [facility] 07-11-2022 Functional Status Door open, Room check performed [facility] 07-11-2022 Functional Status Yadiel monzon [facility] 07-11-2022 Functional Status Yadiel [facility] 07-11-2022 Functional Status 3 Yadiel [facility] 07-11-2022 Functional Status Yadiel [facility] 07-10-2022 Functional Status Demonstrates C orrect Call Light Use Yes [facility] 07-10-2022 Functional Status Ambulating in room, Up to bathroom [facility] 07-10-2022 Functional Status Multilevel home [facility] 07-10-2022 Functional Status ice on, tension pillow in place [facility] 07-10-2022 Functional Status Yadiel [facility] 07-10-2022 Functional Status Maintained Yadiel [facility] 07-02-2022 Functional Status Sensory Deficits None A [facility] NEGATED: Highlighted row Functional performance Functional status health issues are not documented Disease [facility] Work Phone: Mental Status Date Assessment Result Facility 01-26-2023 Mental Status Oriented x 4 [facility] 01-16-2023 Mental Status Oriented x 4 [facility] 01-15-2023 Mental Status [facility] 01-15-2023 [facility] Status [facility]ed x [facility] NEGATED: Highlighted row Cognitive function [Interpretation] Cognitive status health issues are not documented Disease [facility] Work Phone: Clinical Notes 10-13-2020 to 12-18-2024 Note Date & Type Note Facility 12-18-2024 Radiology Diagnostic study note [facility] Imaging Services [address] [place], [place] [address] Low Dose CT Lung Screening MR#: [id number] Acct: [id number] Name: ILDEFONSO ROCHA Rep #: [id number] : 1960 M 64 From: Francisco Melo MD PCP: Dr. Pamela Hernandez MD Status: REG CLI Study:Low Dose CT Lung Screening Date of Exam : 12/18/24 Exam# [id number] Ordering Dr: Pamela Hernandez MD PROCEDURE: LOW DOSE CT LUNG SCREENING 12/18/2024 REASON FOR EXAM: SCREENING Current smoker. Patient has smoked 1 pack per day for 46 years. TECHNIQUE: LOW DOSE CT LUNG SCREENING Coronal and Sagittal reconstruction series were provided. One or more dose reduction techniques were used (e.g., Automated exposure control, adjustment of the mA and/or kV according to patient size, use of iterative reconstruction technique). REFERENCE LINK: [facility] Lung-RADS RADIATION DOSE SUMMARY: CTDlvol: 4.02 mGy DLP: 138.93 mGycm COMPARISON: None FINDINGS: PULMONARY NODULES: (Only nodules >3mm are reported) Nodules described below are on series 1 unless otherwise specified. Pulmonary Nodules: No suspicious pulmonary nodule seen. Hardware:None Lymph Nodes:No significant lymph node seen. Heart and Vasculature:The heart is nonenlarged Coronary Artery Calcifications: Present Lungs and Airways: Mild linear scarring at the lung bases. Small bulla at the left lower lobe. Pleura:No pleural effusion Upper Abdomen:Unremarkable Bones:Degenerative changes of the thoracic spine. CT/Low Dose CT Lung Screening IMPRESSION: No suspicious pulmonary nodule is seen. Coronary artery calcification (CAC) is is present Lung-RADS Category: 2 BENIGN (BASED ON IMAGING FEATURES OR INDOLENT BEHAVIOR). RECOMMEND 12-MONTH SCREENING LDCT. Other Significant Findings: Reading Location: [id number] CC: Dr. Pamela Hernandez MD ~ Parking Lot Attendant: Signed [facility] 12-09-2024 Discharge summary [facility] 12-09-2024 Radiology Diagnostic study note [facility] Imaging Services [address] [place], [place] [address] Testicular with Arterial Flow MR#: [id number] Acct: [id number] Name: ILDEFONSO ROCHA Rep #: [id number] : 1960 M 64 From: Francisco Melo MD PCP: Dr. Pamela Hernandez MD Status: REG ER Study:Testicular with Arterial Flow Date of E xam: 12/09/24 Exam# [id number] Ordering Dr: Augusto Davis MD PROCEDURE: TESTICULAR [...] right scrotal sac as described. Reading Location: [id number] CC: Dr. Augusto Davis MD; Dr. Pamela Hernandez MD ~ Parking Lot Attendant: Signed [facility] 11-30-2024 Evaluation note Diagnosis Onset Date [...] deficiency noneactive November 30, 2024 11:00am [facility] Work Phone: 1([phone] Evaluation + Plan note* Assessment & Plan Note - Nika Almanza - 02/28/2024 10:54 AM EDTAssociated Problem(s): Chronic obstructive pulmonary disease (Multi) Patient's COPD is managed currently on albuterol PRN. [facility] Work Phone: 1([phone]) 762-927110-18-2024 Miscellaneous Notes* Assessment & Plan Note - [...] month follow up appointment. documented in this [facility] Work Phone: [phone]) 599-665210-18-2024 Evaluation + Plan note* Assessment & Plan [...] medication refills and pain management. [facility] Work Phone: [phone]) 116-335510-18-2024 Evaluation + Plan note* Assessment & Plan Note - Nika Almanza - 02/28/2024 10:50 AM EDTAssociated Problem(s): Vitamin D deficiency Patient's vitamin D deficiency is managed on cholecalciferol. [facility] Work Phone: [phone] 730-926410-18-2024 Evaluation + Plan note* Assessment & Plan Note - Nika Almanza - 02/28/2024 10:50 AM EDTAssociated Problem(s): Vasovagal syncope Patient reports episodes of dizziness at baseline during excessive bouts of coughing secondary to his COPD. He has synopsized in the past (years ago), but not recently (in the last few weeks). [facility] Work Phone: [phone] Evaluation + Plan note* Assessment & Plan Note - Nika Almanza - 02/28/2024 10:48 AM EDTAssociated Problem(s): Hyperlipidemia Patient's hyperlipidemia is managed on atorvastatin. Patient's last fasting blood work was collected in 11/03; all values WNL. Patient was instructed to get annual fasting blood work in 07/07 before next 4 month follow up appointment. [facility] Work Phone: [phone]) 561-429810-18-2024 History of Present illness Narrative* Opal Medina [...] Audit Reviewed by Nika Almanza (Student Physician Compliance Paralegal) on 02/28/24 at 1003 Medication Order Taking? Sig Documenting Provider Last Dose Status acetaminophen (Tylenol) 500 mg tablet [id number] 1 tablet (500 mg). Historical Provider, Active albuterol 90 mcg/actuation inhaler [id number] Inhale 2 puffs every 4 hours if needed for wheezing. Opal Medina MD Active apixaban (Eliquis) 5 mg tablet [id number] Take 1 tablet (5 mg) by mouth 2 times a day. Opal Medina MD Active atorvastatin (Lipitor) 20 mg tablet [id number] Take 1 tablet (20 mg) by mouth once daily. Opal Medina MD Active cholecalciferol (Vitamin D-3) 50 mcg (2,000 unit) capsule [id number] Take 1 capsule (50 mcg) by mouthonce daily. Historical Provider, Active cyclobenzaprine (Flexeril) 5 mg tablet [id number] Take 1 tablet (5 mg) by mouth as needed at bedtimefor muscle spasms (for Restless leg). Opal Medina MD Active Discontinued 02/28/24 1001 hydroCHLOROthiazide (HYDRODiuril) 50 mg tablet [id number] Take 1 tablet (50 mg) by mouth once daily.Opal Medina MD Active multivitamin capsule [id number] once daily. Historical Provider, Active touafqly-fawlcwrlv-WU (Cortisporin) otic solution [id number] Administer 2 drops into the left ear 4 times a day. Opal Medina MD Active sertraline (Zoloft) 100 mg tablet [id number] Take 1 daily Opal Medina MD Active [...] Medina MD documented [facility] Work Phone: [phone] 185-886510-18-2024 Instructions* Patient Instructions* Opal Medina MD - 02/28/2024 10:00 AM EDT Follow up Dr Medina in 4 months for HTN etc 30 min Please get fasting labs before next appointment All Back meds should come from ortho. [facility] Work Phone: [phone] Evaluation + Plan note* Assessment & Plan [...] cessation for approximately 7 minutes. [facility] Work Phone: [phone] 710-572906-21-2024 Miscellaneous Notes* Assessment & Plan Note - [...] getting injections through Dr. Meléndez in the [facility] for this and it is finally starting [...] refill on his hydrochlorothiazide documented in this [facility] Work Phone: [phone] 306-691706-21-2024 Evaluation + Plan note* Assessment & Plan Note - Opal Medina MD - 11/01/2023 11:03 AM EDTAssociated Problem(s): Acute right-sided low back pain with right-sided sciatica Patient is currently getting injections through Dr. Meléndez in the [facility] for this and it is finally starting to work. [facility] Work Phone: [phone] Evaluation + Plan note* Assessment & Plan [...] he stays on the medication. [facility] Work Phone: [phone]) 825-993206-21-2024 Evaluation + Plan note* Assessment & Plan Note - Opal Medina MD - 11/01/2023 11:02 AM EDTAssociated Problem(s): Acute deep vein thrombosis (DVT) of left lower extremity (Multi) Patient has a chronic DVT now and remains on Eliquis. He has no bruises or other problems currentlyand is tolerating the medication [facility] Work Phone: [phone] 128-899206-21-2024 Evaluation + Plan note* Assessment & Plan [...] syncope he is to notify us immediately [facility] Work Phone: [phone] 290-172506-21-2024 Evaluation + Plan note* Assessment & Plan Note - Opal Medina MD - 11/01/2023 11:01 AM EDTAssociated Problem(s): Hypertension Blood pressure stable and well-controlled no changes were needed today. He was given a refill on his hydrochlorothiazide [facility] Work Phone: [phone] 174-491206-21-2024 History of Present illness Narrative* Opal Medina [...] continues to see Dr. Meléndez at in [facility] for back injections which are finally helping. [...] Dose Status acetaminophen (Tylenol) 500 mg tablet [id number] 1 tablet (500 mg). Historical ProviderMD Active albuterol 90 mcg/actuation inhaler [id number] Inhale 2 puffs every 4 hours if needed for wheezing. Opal Medina MD Active apixaban (Eliquis) 5 mg tablet [id number] Take 1 tablet (5 mg) by mouth 2 times a day. Opal Medina MD Active atorvastatin (Lipitor) 20 mg tablet [id number] Take 1 tablet (20 mg) by mouth once daily. Opal Medina MD Active cholecalciferol (Vitamin D-3) 50 mcg (2,000 unit) capsule [id number] No Take 1 capsule (50 mcg) by mouth once daily. Historical ProviderMD Not Taking Active cyclobenzaprine (Flexeril) 5 mg tablet [id number] Take 1 tablet (5 mg) by mouth as needed at bedtimefor muscle spasms (for Restless leg). Opal Medina MD Active glucose 4 gram chewable tablet [id number] Chew if needed for low blood sugar - see comments. Historical ProviderMD Active hydroCHLOROthiazide (HYDRODiuril) 50 mg tablet [id number] Take 1 tablet (50 mg) by mouth once daily. Opal Medina MD Active multivitamin capsule [id number] No once daily. Historical ProviderMD Taking Active eearqcqi-zughgruqf-HE (Cortisporin) otic solution [id number] Administer 2 drops into the left ear 4 times a day. Opal Medina MD Active sertraline (Zoloft) 100 mg tablet [id number] Take 1 daily Opal Medina MD Active [...] getting injections through Dr. Meléndez in the [facility] for this and it is finally starting [...] Medina MD documented [facility] Work Phone: [phone] Instructions* Patient Instructions* Opal Medina MD - 11/01/2023 10:00 AM EDT Please call [phone] Quit now to help stop smoking Follow up Dr Medina in 4 months for HTN, etc 30 min appointment [facility] Work Phone: [phone] Evaluation + Plan note* Assessment & Plan [...] patient has a third episode. [facility] Work Phone: [phone] 490-325603-20-2024 Miscellaneous Notes* Assessment & Plan Note - [...] has a third episode. documented in this [facility] Work Phone: [phone]) 521-699203-20-2024 History of Present illness Narrative* Opal Medina MD - 07/31/2023 3:30 PM EDT Subjective Patient ID: Ildefonso Rocha is a 63 y.o. male who presents for dizziness and general health management. Patient is here today because of a syncopal episode which occurred this past Saturday. He was walking to [place] when he suddenly became lightheaded elevated and [...] Dose Status acetaminophen (Tylenol) 500 mg tablet [id number] 1 tablet (500 mg). Historical Provider, Active albuterol 90 mcg/actuation inhaler [id number] Inhale 2 puffs every 4 hours if needed for wheezing. Opal Mdeina MD Active apixaban (Eliquis) 5 mg tablet [id number] Take 1 tablet (5 mg) by mouth 2 times a day. Opal Medina MD Active atorvastatin (Lipitor) 20 mg tablet [id number] Take 1 tablet (20 mg) by mouth once daily. Opal Medina MD Active cholecalciferol (Vitamin D-3) 50 mcg (2,000 unit) capsule [id number] No Take 1 capsule (50 mcg) by mouth once daily. Historical Provider, Not Taking Active cyclobenzaprine (Flexeril) 5 mg tablet [id number] Take 1 tablet (5 mg) by mouth as needed at bedtimefor muscle spasms (for Restless leg). Opal Medina MD Active glucose 4 gram chewable tablet [id number] Chew if needed for low blood sugar - see comments. Historical Provider, Active hydroCHLOROthiazide (HYDRODiuril) 50 mg tablet [id number] Take 1 tablet (50 mg) by mouth once daily. Opal Medina MD Active multivitamin capsule [id number] No once daily. Historical Provider, Taking Active dlevxust-abesnqeod-KS (Cortisporin) otic solution [id number] Administer 2 drops into the left ear 4 times a day. Opal Medina MD Active sertraline (Zoloft) 100 mg tablet [id number] Take 1 daily Opal Medina MD Active [...] Medina MD [facility] Work Phone: [phone] Instructions* Patient Instructions* Opal Medina MD - 07/31/2023 3:30 PM EDT Set up echo with cardiology Please take medications in the morning with food documented in this [facility]Mer[facility] Work Phone: [phone] Evaluation + Plan note* Assessment & Plan Note - Opal Medina MD - 07/05/2023 12:09 PM ESTAssociated Problem(s): Current moderate episode of major depressive disorder without prior episode ( CMS/HCC) Patient stated his mood is stable on the sertraline. [facility] Work Phone: [phone] 423-691502-23-2024 Miscellaneous Notes* Assessment & Plan Note - [...] and Dr. Harini Meléndez. Phone number is [phone] * Assessment & Plan Note - Opal Medina MD - 07/05/2023 12:08 PM EST Associated Problem(s): Hypertension Blood pressure stable and well-controlled. documented in this [facility] Work Phone: [phone] 445-962002-23-2024 Evaluation + Plan note* Assessment & Plan Note - Opal Medina MD - 07/05/2023 12:08 PM ESTAssociated Problem(s): Acute deep vein thrombosis (DVT) of left lower extremity ([facility]/HCC) Patient remains on Eliquis however it has [...] injection on July 16 by [facility] vanessa and Dr. Harini Meléndez. Phone number is [phone] [facility] Work Phone: [phone] 194-572702-23-2024 Evaluation + Plan note* Assessment & Plan Note - Opal Medina MD - 07/05/2023 12:08 PM ESTAssociated Problem(s): Hypertension Blood pressure stable and well-controlled. [facility] Work Phone: [phone] History of Present illness Narrative* Opal Medina MD - 07/05/2023 11:30 AM EST Subjective Patient ID: Ildefonso Rocha is a 63 y.o. male who presents for 4 month follow for general health management. BN Is scheduled here for regular follow-up for his restless leg, hypertension and DVT. Patient remains on Eliquis but is scheduled to have a spinal injection in [place] on July 16. He mentions to me that he wants to know what to do about the Eliquis and that the pain management physicians told him to discuss it with me. I have not received anything from pain management such as a preop clearance or request for discontinuation of his anticoagulation. I will reach out to the office ofDr. Harini Mel[facility]dez at [facility]. Review of Systems Constitutional: Negative for [...] Dose Status acetaminophen (Tylenol) 500 mg tablet [id number] 1 tablet (500 mg). Historical ProviderMD Active albuterol 90 mcg/actuation inhaler [id number] Inhale 2 puffs every 4 hours if needed for wheezing. Opal Medina MD Active apixaban (Eliquis) 5 mg tablet [id number] Take 1 tablet (5 mg) by mouth 2 times a day. Opal Medina MD Active cholecalciferol (Vitamin D-3) 50 mcg (2,000 unit) capsule [id number] No Take 1 capsule (50 mcg) by mouth once daily. Historical ProviderMD Not Taking Active glucose 4 gram chewable tablet [id number] Chew if needed for low blood sugar - see comments. Historical Provider, Active hydroCHLOROthiazide (HYDRODiuril) 50 mg tablet [id number] Take 1 tablet (50 mg) by mouth once daily. Opal Medina MD Active Discontinued 07/05/23 1109 Discontinued 07/05/231108 multivitamin capsule [id number] No once daily. Historical Provider, Taking Active ntowjder-lrsijgjqw-SG (Cortisporin) otic solution [id number] Administer 2 drops into the left ear 4 times a day. Opal Medina MD Active sertraline (Zoloft) 100 mg tablet [id number] Take 1 daily Opal Medina MD Active [...] and Dr. Harini Meléndez. Phone number is [phone] Other Visit Diagnoses Acute swimmer's ear of left side - Primary Relevant Medications jrtqbfyr-xqqmuzpbs-XT (Cortisporin) otic solution Hypercholesterolemia Relevant Medications atorvastatin (Lipitor) 20 mg tablet Other Relevant Orders Lipid panel Hepatic function panel RLS (restless legs syndrome) Relevant Medications cyclobenzaprine (Flexeril) 5 mg tablet It has been a pleasure seeing you. Opal Medina MD documented [facility] Work Phone: 1(830) 524-970802-23-2024 Instructions* Patient Instructions* Opal Medina MD - 07/05/2023 11:30 AM EST Get fasting s before next appointment Follow up Dr Medina in 4 months for chol etc 30 min appointment [facility] Work Phone: [phone] Hospital Discharge instructions Patient Education 01/26/2023 20:06:45 AA Blank DI(CUSTOM) Leg redness The redness in your [...] Document Reviewed: 04/30/2014 ExitCare Patient Information 2015 [employer]. This information is not intended to replace advicegiven to you by your health care provider. Make sure you discuss any questions you have with your health care provider. Follow Up Care 01/26/2023 19:47:06 With:GRICELDA OLIVER MD Address: [facility] [address] [facility] [address] [place] [address] [phone] When:2-4 days [facility] 09-16-2023 Note Discharge Instructions Thank you for allowing [facility] to assist you with your healthcare needs. The following is importantdischarge information regarding your hospital visit. What to Do Next Instructions from Your Care Team No qualifying data available. Post Acute Orders No qualifying data available. You Need to Schedule the Following Appointments Follow Up with GRICELDA OLIVER MD When Within 2-4 days Where: [address] [place] [phone] [phone] Allergies NKA Medications Please ask your primary [...] Document Reviewed: 04/30/2014 ExitCare Patient Information 2015 [employer]. This information is not intended to replace advicegiven to you by your health care provider. Make sure you discuss any questions you have with your health care provider. Additional Information VACCINATE! IT SAVES LIVES! Members of the community who have not yet received the COVID-19 vaccine and would like to receive it can visit one of [facility] vaccine clinics. There are many vaccine clinic locations within the [facility]. For locations and available times, please visit [email or web address]/. It is important to note that some COVID mobile vaccine clinics are held outdoors and may be canceled in rainy or stormy conditions. To learn more about pediatric vaccinations (ages 5-11), we invite you to visit the [facility] webpage. [email or web address]/[email or web address]-Cqedshpbsg-Stfpx-[email or web address] stions.htmlTo learn more about the COVID-19 vaccine, we invite you to visit the CDC website for a list of frequently asked questions. https://www.cdc.gov/coronavirus/2019-ncov/vaccines/faq.html [facility] Patient [facility] Access Instructions: Stay connected with your healthcare team and access your personal medical information anytime with the [facility] Patient Portal. If you would like a full copy of your medical records please contact the [facility] Medical Records Department Saturday through Saturday between 8a.m. and 4:30p.m. Please follow the directions below to access the portal: 1.Access the email account you provided upon registration to the [facility].2.Look for an invitation email from [facility].3.Open the email and access the invitation link: Accept Invitation to [facility]4.Fill in the required benson to create your account. Sign into [email or web address] with your username and password that you [...] you will allow to register on the [facility] Patient Portal for access to your information. You can also access the [facility] Patient Portal on the Zkatter. Simply click on Health Records under [employer] and then click on the CheckiO logo. HOW TO SAFELY DISPOSE OF PRESCRIPTION [...] Call your local pharmacy or go to [email or web address] to find one close to you.3.Make use of household items: Use cat litter or old coffee grounds to dispose medications if other options arenot available. Mix your drugs with these household products, seal them in an airtight container andthrow it into the garbage. Call [facility]: [phone] to be sure your drugs can be [...] aware that I should contact my doctor. Patient/Pattern Room Attendant Signature: Date/Time: Relationship to Patient: Witness Name/Signature: Date/Time: [facility]09-06-2023 Note Date of Service 01/16/2023 Chief [...] by BECK PECK on 01/16/2023 02:24 PM [facility]09-06-2023 Hospital Discharge instructions Patient Education 01/16/2023 11:29:25 5 - [facility] Post-op Instruction 12/2016 (Custom)(CUSTOM) [facility] Post-operative Instructions PLEASE FOLLOW [facility] POST-OP INSTRUCTIONS GIVEN WATCH FOR SIGNS OF INFECTION: call the office ([phone]) if experencing any of the following: (Usually [...] on your follow up instructions. Form: [id number]) R: 09/16 Follow Up Care 07/04/2022 10:35:51 With:[facility] Therapy Address: [address] [place] [phone]- [phone] When:01/21/2023 09:00:00 Comments:This is your Physical Therapy appt. With:FELIPE LAU PA-C, Orthopedic Address: [facility] [address] [place] [phone]- When:01/28/2023 13:45:00 Comments:This is your Ortho Follow up appt. [facility] 09-06-2023 Note Discharge Instructions Thank you for allowing [facility] to assist you with your healthcare needs. The following is importantdischarge information regarding your hospital visit. Your Care Team Gricelda Oliver MD [facility] Your Diagnosis COPD without exacerbation History of DVT in adulthood HTN (hypertension) Knee arthropathy Osteoarthritis Other acute postprocedural pain What to do next Follow Up Appointments Follow Up with FELIPE LAU PA-C, Orthopedic When 01/28/2023 01:45 PM EDT Why: This is your Ortho Follow up appt. Where: [facility] [address] [place] [address]- Follow Up with [facility] When 01/21/2023 09:00 AM EDT Why: This is your Physical Therapy appt. Where: [address] [place] [phone]- [phone] The Following Activity and Diet Have Been [...] Duration: 5 Days Pickup at [facility][id number] 9 @ 8am New doxycycline (doxycycline hyclate 100 mg oral capsule) 1 cap by mouth Every 12 hours Duration: 14 Days Pickup at [facility] #[id number] 01/16 @ 8am New famotidine (Pepcid 20 mg oral tablet) 1 tab(s) by mouth Once a day Pickup at [facility] #[id number] 96 @ 8am New ondansetron (ondansetron 4 mg oral tablet) 1 tab(s) by mouth Every 8 hours as needed for Nausea/Vomiting Pickup at [facility] #[id number] New oxyCODONE (oxyCODONE 5 mg oral tablet ( IMMEDIATE release )) 1-2 tab(s) by mouth Every 4 hours as needed for as needed for pain Knee arthropathy Other acute postprocedural pain Duration: 7 Days Pickup at [facility] #[id number] 01/16 @ 12pm Unchanged albuterol (Albuterol (Eqv-ProAir [...] Every day 01/16 @ 8am Pharmacy Information [facility] #[id number]: [address], [place] [id number] [phone] Please take this list to your next [...] may report side effects to FDA at 5-101-RBQ-3376. What other drugs will affect docusate and senna? Other drugs may affect docusate and senna, including prescription and ushh-kgh-thqjifj medicines, vitamins, and herbal products. Tell your [...] to ensure that the information provided by [employer]. ('[employer]') is accurate, up-to-date, and complete, but no guarantee is made to that effect. Drug information contained herein may be time sensitive. [employer] information has been compiled for use by healthcare practitioners and consumers in the [place] and therefore [employer] does not warrant that uses outside of the [place] are appropriate, unless specifically indicated otherwise. [employer] drug information does not endorse drugs, diagnose patients or recommend therapy. [employer] drug information isan informational resource designed to [...] effective or appropriate for any given patient. [employer] does not assume any responsibility for any aspect of healthcare administered with the aid of information [employer] provides. The information contained herein is not intended to cover all possible uses, directions, precautions, warnings, drug interactions, allergic reactions, or adverse effects. If you have questions about the drugs you are taking, check with your doctor, nurse or pharmacist. Copyright 6398-2127 [employer]. Version: 5.01. Revision Date: 12/17/2022. doxycycline (oral/injection) (DOX i CRAIG carlton) Acticlate, Adoxa, Alodox, Avidoxy, Doryx, Doryx MPC, Lymepak, Mondoxyne NL, Monodox, Morgidox, Morgidox 4l901ar, Morgidox 1y238ir, Okebo, Oracea, Targadox, Vibramycin, Vibramycin Calcium, Vibramycin [...] or life-threatening conditions such as anthrax or Quail spotted fever. The benefit of treating a [...] may report side effects to FDA at 5-284-WDS-2375. What other drugs will affect doxycycline? Sometimes it is not safe to use certain medications at the same time. Some drugs can affect your blood levels of other drugs you take, which may increase side effects or make the medications less effective. Other drugs may affect doxycycline, including prescription and wcik-ytf-bcavrlk medicines, vitamins, and herbal products. Tell your [...] to ensure that the information provided by [employer]. ('[employer]') is accurate, up-to-date, and complete, but no guarantee is made to that effect. Drug information contained herein may be time sensitive. [employer] information has been compiled for use by healthcare practitioners and consumers in the [place] and therefore [employer] does not warrant that uses outside of the [place] are appropriate, unless specifically indicated otherwise. [employer] drug information does not endorse drugs, diagnose patients or recommend therapy. [employer] drug information isan informational resource designed to [...] effective or appropriate for any given patient. [employer] does not assume any responsibility for any aspect of healthcare administered with the aid of information [employer] provides. The information contained herein is not intended to cover all possible uses, directions, precautions, warnings, drug interactions, allergic reactions, or adverse effects. If you have questions about the drugs you are taking, check with your doctor, nurse or pharmacist. Copyright 7354-1421 [employer]. Version: 23.01. Revision Date: 12/12/2022. oxycodone (ox i KOE [...] The extended-release form of oxycodone is for gsccsa-lcp-grfqu treatment of pain and should not be [...] against the law. Stop taking all other wnxbls-rcm-vwzee opioid pain medicines when you start taking [...] may report side effects to FDA at 4-418-UAX-5558. What other drugs will affect oxycodone? You [...] drugs may affect oxycodone. This includes prescription lvweqbz-jjy-udlsipz medicines, vitamins, and herbal products. Not all [...] to ensure that the information provided by [employer]. ('[employer]') is accurate, up-to-date, and complete, but no guarantee is made to that effect. Drug information contained herein may be time sensitive. [employer] information has been compiled for use by healthcare practitioners and consumers in the [place] and therefore [employer] does not warrant that uses outside of the [place] are appropriate, unless specifically indicated otherwise. [employer] drug information does not endorse drugs, diagnose patients or recommend therapy. [employer] drug information isan informational resource designed to [...] effective or appropriate for any given patient. [employer] does not assume any responsibility for any aspect of healthcare administered with the aid of information [employer] provides. The information contained herein is not intended to cover all possible uses, directions, precautions, warnings, drug interactions, allergic reactions, or adverse effects. If you have questions about the drugs you are taking, check with your doctor, nurse or pharmacist. Copyright 2311-2181 [employer]. Version: 16.. Revision Date: 12/14/2022. famotidine (oral/injection) [...] may report side effects to FDA at 5-616-GXB-5651. What other drugs will affect famotidine? Famotidine oral can make it harder for your body to absorb other medicines you take by mouth. Tell your doctor if you are taking: cefditoren; dasatinib; delavirdine; fosamprenavir; or tizanidine (if you are taking famotidine liquid). This list is not complete. Other drugs may affect famotidine, including prescription and fuoz-cgj-jvmpbww medicines, vitamins, and herbal products. Not all [...] to ensure that the information provided by [employer]. ('[employer]') is accurate, up-to-date, and complete, but no guarantee is made to that effect. Drug information contained herein may be time sensitive. [employer] information has been compiled for use by healthcare practitioners and consumers in the [place] and therefore [employer] does not warrant that uses outside of the [place] are appropriate, unless specifically indicated otherwise. [employer] drug information does not endorse drugs, diagnose patients or recommend therapy. [employer] drug information isan informational resource designed to [...] effective or appropriate for any given patient. [employer] does not assume any responsibility for any aspect of healthcare administered with the aid of information [employer] provides. The information contained herein is not intended to cover all possible uses, directions, precautions, warnings, drug interactions, allergic reactions, or adverse effects. If you have questions about the drugs you are taking, check with your doctor, nurse or pharmacist. Copyright 1643-1916 [employer]. Version: 20.. Revision Date: 12/03/2022. Education Materials [facility] Post-operative Instructions PLEASE FOLLOW [facility] POST-OP INSTRUCTIONS GIVEN WATCH FOR SIGNS OF INFECTION: call the office ([phone]) if experencing any of the following: (Usually [...] on your follow up instructions. Form: 338A (42280) R: 09/16 Additional Information VACCINATE! IT SAVES LIVES! Members of the community who have not yet received the COVID-19 vaccine and would like to receive it can visit one of [facility] vaccine clinics. There are many vaccine clinic locations within the [facility]. For locations and available times, please visit [email or web address] It is important to note that some COVID mobile vaccine clinics are held outdoors and may be canceled in rainy or stormy conditions. To learn more about pediatric vaccinations (ages 5-11), we invite you to visit the [employer] webpage. https://www.[email or web address]/pages/[email or web address]-Mzney-Afydzjnwtiz-Xdivdftxsr-Wpldj-Qmr stions.htmlTo learn more about the COVID-19 vaccine, we invite you to visit the CDC website for a list of frequently asked questions.https://www.cdc.gov/coronavirus/2019-ncov/vaccines/faq.html [facility] Patient Portal Access Instructions: Stay connected with your healthcare team and access your personal medical information anytime with the [facility] Patient Portal. Please follow the directions below to create your [facility] account: 1.Access the email account you provided upon registration to the hospital/physician office.2.Look for an invitation email from [facility].3.Open the email and access the invitation link: AcceptInvitation to [facility].4.Fill in the required benson to create your account. To access your account, visit [email or web address]. Click the blue button labeled Access Patient [...] who you will allowto register on the [facility] Patient Portal for access to your information. You can also access the [facility] on the [facility] jacklyn. Simply click on Patient Portal and then log into your account. If you would like to receive a full copy of your medical records, please contact the [facility] Medical Records Department by calling [phone], Saturday through Saturday between 8 a.m. and [...] Call your local pharmacy or go to [email or web address] to find one close to you.3.Make use of household items: Use cat litter or old coffee grounds to dispose medications if other options arenot available. Mix your drugs with these household products, seal them in an airtight container andthrow it into the garbage. Call [facility]: [phone] to be sure your drugs can be [...] COPY. Signatures Patient Education Materials 5 - [facility] Post-op Instruction 12/2016 (Custom)(CUSTOM) Medication Leaflets docusate and senna, doxycycline (oral/inj (more content not included)... [facility]09-06-2023 Note Date of Service 01-16-2023 Chief [...] physical therapy at onsite physical therapy in [place]. 4. Wound dressing: Discussed with patient plan [...] this plan and anticipates discharge home today. [facility] Office: Osteoarthritis Status [...] GRICELDA OLIVER MD on 01/16/2023 08:05 AM [facility]09-05-2023 Note ORIGINAL EXAMINATION: POSTOPERATIVE KNEE TECHNIQUE: [...] Sign Date: 01/15/2023 9:33:34 AM Ordering Provider: [facility]09-05-2023 Anesthesiology Consult note Patient: ILDEFONSO ROCHA Age: 62 years Sex: Male : 1960 Associated Diagnoses: None Author: JERSEY MURPHY APRN-DAY CAMP COUNSELOR Assessment Postanesthesia assessment Vitals: Vital signs from [...] by JERSEY MURPHY on 01/15/2023 08:55 AM [facility]09-05-2023 Anesthesiology Consult note Patient: ILDEFONSO ROCHA [...] Abscess of left leg / SNOMED CT 484560972 / Confirmed Cellulitis of leg / SNOMED CT 6002691497 / Confirmed COPD (chronic obstructive pulmonary disease) / SNOMED CT 81670912 / Confirmed Cancer of skin of face / SNOMED CT 1624358013 / Confirmed Obesity / SNOMED CT 1855573884 / Confirmed Osteoarthritis of left knee / SNOMED CT 8991960021 / Confirmed, Active Problems (9) Abscess of left leg Cancer of skin of face Cellulitis of leg COPD (chronic obstructive pulmonary disease) DVT (deep venous thrombosis) HTN (hypertension) Obesity Osteoarthritis of left knee Tobacco use Histories Past Medical History: Active COPD (chronic obstructive pulmonary disease) (33940041) Obesity (0890309088) Cancer of skin of face (4480138845) Family History: Heart disease Grandparent Stroke Grandparent Cancer Mother Procedure history: Arthroplasty of knee (78283939) on 07/10/2022 at 62 Years. Comments: 07/10/2022 8:57 Gena Ramos RN ROBOTIC ASSISTED LEFT KNEE ATHROPLASTY Abscess (468300608) on 07/17/2021 at 61 Years. Comments: 07/21/2021 13:37 Meeta Miller LPN I&D SCROTAL ABSCESS (OFFICE) Excision of melanoma (900190860). History of hernia repair (2190773545). Comments: 06/24/2021 19:39 BAMBI Miranda RN Uyen occured as infant Social History Social & Psychosocial Habits Alcohol 01/15/2023Risk Assessment: Denies Alcohol Use 01/15/2023 Use: denies Substance Abuse 01/15/2023Risk Assessment: Denies Substance Abuse 01/15/2023 Use: denies Tobacco 01/15/2023 Tobacco Use: 5-9 cigarettes (between 1 Type: Cigarettes Number of years: 40 Home/Environment 01/15/2023 Domestic Concerns Denies Living situation: Home/Independent Primary Soda Column Operator: Self Safe place to go: Yes Lives [...] Signs(last 24 hrs) Last Charted Heart Rate Gulnfnaiw78 bpm (JAN 15 07:35) Resp Rate 14 br/min (JAN 15 05:40) SBP99 mmHg (JAN 15 07:35) DBP66 mmHg (JAN 15 07:35) Measurements from flowsheet : Measurements 01/15/2023 5:40 EDT Height 172.7 cm Height in inches 68 inch(es) Admission Weight 119 kg Weight Lbs 261.8 lb [place] Body Weight 68.38 kg Admission Body Mass [...] Device (SCD) 01/15/2023 7:02 EDT SN - LA - Route of Administration Local SN - LA - Route of Administration Local SN - LA - Route of Administration Local SN - LA - By (Single) SN - LA - By (Single) SN - LA - By (Single) SN - LA - By (Single) SN - LA - By (Single) SN - LA - By (Single) 01/15/2023 6:55 EDT SN - CAt - Case Attendee SN - CAt - Case Attendee SN - CAt - Role Performed Car Unloader 01/15/2023 6:53 EDT SN - Irl - Irrigant Normal Saline SN - Irl - Irrigant Normal Saline SN - Irl - Irrigant Sterile Water SN - IrI - Volume In 500 mL SN - IrI - Volume In 450 mL SN - Irl - Additive BETADINE (POVIDONE IODINE) SOLUT SN - Irl - Additive IRRIGATION CHG 0.05% IRRISEPT 12/CA [id number] SN - IrI - Volume Out 500 [...] SN - CAt - Role Performed Physician Compliance Paralegal SN - CAt - Role Performed DAY CAMP COUNSELOR SN - CAt - Role Performed Mule Spinner 1 SN - CAt - Role Performed Scrub 1 SN - CAt - Role Performed Emulsion Operator 1 01/15/2023 6:42 EDT SN - Preop [...] Person #1 We May Share JEY ROCHA [phone] Designated Person #1 Relationship Spouse Designated Person [...] Method Explanation, Printed materials Preferred Spoken Language Ugandan Preferred Written Language Ugandan Teaching Evaluation Verbalizes/Nonverbally indicates understanding Total Joint [...] Weight 119 kg Weight Lbs 261.8 lb [place] Body Weight 68.38 kg Admission Body Mass [...] Symptoms Ulcers/Lesions Skin Temperature Warm Skin Description [place], Dry Skin Integrity Not intact Skin Moisture General Dry IV Present Present Neurological Symptoms Patient denies Extremity Movement Equal Characteristics of Speech Clear Level of Consciousness Alert Strength All Extremities Strong Tone All Extremities Normal Sensation All Extremities Intact Affect/Behavior Appropriate, Calm, Cooperative Orientation Oriented x 4 Allergies No Anesthesia Extension Set Applied Yes Data Examination Clerk On Yes Consent Form Signed Yes [...] Intake 01/14/2023 20:00 . Assessment and Plan [place] [employer] Anesthesiologists (ASA) physical status classification: Class III. Anesthetic Preoperative Plan Anesthetic technique: Spinal. Postoperative pain management: adductor. Informed consent: signed by patient. Digitally Signed by JERSEY MURPHY on 01/15/2023 07:48 AM [facility]08-28-2023 Note ORIGINAL EXAMINATION: CT OF THE [...] Sign Date: 01/07/2023 3:41:18 PM Ordering Provider: [facility]08-14-2023 Evaluation + Plan note* Assessment & Plan Note - Opal Medina MD - 12/24/2022 11:26 AM EDTAssociated Problem(s): Current moderate episode of major depressive disorder without prior episode ([facility]) Patient is also here today because of an predosing in his Zoloft. We increased it to 100 mg becausehis depression was getting worse. Since the increase he has felt much better and back to his old self. He is no longer down in the dumps and is no longer short tempered with his new or family. [facility] Work Phone: [phone]) 353-299408-14-2023 Evaluation + Plan note* Assessment & Plan Note - Opal Medina MD - 12/24/2022 11:26 AM EDTAssociated Problem(s): Preop examination BC and CHEM profile were both reviewed and look acceptable. Patient should do well through the surgery and he is cleared was given instructions to stop his Coumadin on January 12. [facility] Work Phone: 1(685) 776-865308-14-2023 Miscellaneous Notes* Assessment & Plan Note - [...] time without any issues documented in this [facility] Work Phone: [phone]) 773-151308-14-2023 Evaluation + Plan note* Assessment & Plan [...] as soon as possible after the surgery. [facility] Work Phone: [phone]) [phone] Evaluation + Plan note* Assessment & Plan Note - Opal Medina MD - 12/24/2022 11:25 AM EDTAssociated Problem(s): Hypertension Blood pressure is stable and well-controlled at this time without any issues [facility] Work Phone: [phone]) 591-728408-14-2023 History of Present illness Narrative* Opal Medina MD - 12/24/2022 11:00 AM EDT Subjective Patient ID: Ildefonso Rocah is a 62 y.o. male who presents [...] Dose Status acetaminophen (Tylenol) 500 mg tablet 08573884 1 tablet (500 mg). Historical Provider, Active albuterol 90 mcg/actuation inhaler 43586049 No Inhale 2 puffs every 4 hours if needed for wheezing.Historical Provider, Taking Active apixaban (Eliquis) 5 mg tablet [id number] Take 1 tablet (5 mg) by mouth 2 times a day. Opal Medina MD Active cholecalciferol (Vitamin D-3) 50 mcg (2,000 unit) capsule [id number] No Take 1 capsule (50 mcg) by mouth once daily. Historical Provider, Not Taking Active glucose 4 gram chewable tablet [id number] Chew if needed for low blood sugar - see comments. Historical Provider, Active hydroCHLOROthiazide (HYDRODiuril) 50 mg tablet [id number] Take 1 tablet (50 mg) by mouth once daily. Opal Medina MD Active multivitamin capsule 01925660 No once daily. Historical Provider, Taking Active sertraline (Zoloft) 100 mg tablet 80812153 Take 1 daily Opal Medina MD Active [...] seeing you. documented in [facility] Work Phone: [phone]) 601-789508-14-2023 Instructions* Patient Instructions* Opal Medina MD - 12/24/2022 11:00 AM EDT Rec quit smoking. Stop eliquis on 01/12/23 for surgery on 01/15/[address] Medina in 6 to 8 weeks after surgery documented in [facility]Mer[facility] Work Phone: [phone]) 182-374408-07-2023 Evaluation + Plan note Future Appointments Future Scheduled Tests Radiology* CT Knee w/o Contrast Right 12/17/22 [facility] 08-07-2023 Evaluation + Plan note Future Scheduled Tests Radiology* CT Knee w/o Contrast Right 12/17/22 [facility] 06-20-2023 Evaluation + Plan note* Assessment [...] to prevent any recurrent DVTs. [facility] Work Phone: [phone]) 284-789206-20-2023 Miscellaneous Notes* Assessment & Plan Note - [...] reviewed with the patient. documented in this [facility] Work Phone: [phone]) [phone] Evaluation + Plan note* Assessment & Plan [...] all reviewed with the patient. [facility] Work Phone: [phone]) 889-933806-20-2023 History of Present illness Narrative* Opal Medina [...] lack of movement. 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 Historical ProviderMD Active albuterol 90 mcg/actuation inhaler [id number] Inhale 2 puffs every 4 hours if needed for wheezing. Historical ProviderMD Active apixaban (Eliquis) 5 mg tablet [id number] Take 1 tablet (5 mg) by mouth in the morning and 1 tablet (5 mg) before bedtime. Opal Medina MD Active Discontinued 10/30/22 1147 cholecalciferol (Vitamin D-3) 50 mcg (2,000 unit) capsule [id number] Take 1 capsule (50 mcg) by mouthonce daily. Historical ProviderMD Active hydroCHLOROthiazide (HYDRODiuril) 50 mg tablet 80372502 once daily. Historical ProviderMD Active Discontinued 10/30/22 1147 multivitamin capsule [id number] once daily. Historical ProviderMD Active Discontinued 10/30/22 [...] seeing you. documented in this [facility]Mer[facility] Work Phone: [phone] Instructions* Patient Instructions* Opal Medina MD - 10/30/2022 11:30 AM EDT Follow up Dr Medina in 1 month for depression 30 min appointment documented in [facility]Mer[facility] Work Phone: [phone] Evaluation + Plan note* Assessment & Plan [...] physical therapy at this time. [facility] Work Phone: [phone]) 942-303603-21-2023 Miscellaneous Notes* Assessment & Plan Note - [...] now we will monitor. documented in this [facility]Mer[facility] Work Phone: [phone] Evaluation + Plan note* Assessment & Plan [...] knee has been totally replaced. [facility] Work Phone: [phone] Evaluation + Plan note* Assessment & Plan Note - Opal Medina MD - 07/31/2022 1:21 PM EDTAssociated Problem(s): Hypertension Mild elevation in blood pressure today at 132/66 but for now we will monitor. [facility] Work Phone: [phone] History of Present illness Narrative* Opal Medina [...] seeing you. documented in this [facility]Mer[facility] Work Phone: [phone] Instructions* Patient Instructions* Opal Medina MD - 07/31/2022 10:45 AM EDT Stop Xarelto and start Eliquis 5mg twice a day Follow up Dr Medina in 3 months You are cleared for physical therapy with no limits from Dr Medina documented in this [facility]Mer[facility] Work Phone: [phone] Note Discharge Instructions Thank you for allowing [...] Contact InformationSurgical Pre-Test 08/24/2022 08:00 AM EDT [facility] PAT CT Knee w/o Contrast Right 08/24/2022 09:30 AM EDT [place] [facility] 09/04/2022 07:30 AM EDT [facility] Main OR Follow Up Appointments Follow Up with FELIPE LAU When 07/23/2022 02:45 PM EDT Where: [facility] [address] [place] [address]- Business (1) Follow Up with CESIA Mendez OLVIN on site When 07/16/2022 11:00 [...] to exceed 3000 mg/ day Pickup at [facility] #[id number] 07/11/22 at 0813am New docusate-senna (Senokot S 50 mg-8.6 mg oral tablet) 2 tab(s) by mouth Two (2) times a day Duration: 3 Days Take until first bowel movement, then as needed Pickup at [facility] #[id number] 07/11/22 at 0813am New doxycycline (doxycycline hyclate 100 mg oral capsule) 1 cap by mouth Every 12 hours Duration: 14 Days Pickup at [facility] #[id number] 07/11/22 at 0813am New famotidine (Pepcid 20 mg oral tablet) 1 tab(s) by mouth Once a day Pickup at [facility] #[id number] 07/11/22 t 0813am New meloxicam (Mobic 7.5 mg oral tablet) 1 tab(s) by mouth Twice daily with meals Do not take any other nonsteroidal anti-inflammatories while on meloxicam/ Mobic Pickup at [facility] #[id number] start tomorrow New oxyCODONE (oxyCODONE 5 mg oral tablet ( IMMEDIATE release )) See instructions Status post total left knee replacement 1-2 tab(s) Oral q4h Pickup at [facility] #[id number] 07/11/22 at 1117am Changed aspirin (aspirin 81 mg oral delayed release tablet) 1 tab(s) by mouth Two (2) times a day Duration: 30 Days Take 81 mg aspirin twice daily with food for 4 weeks postoperatively for DVT prophylaxis. Pickup at [facility] #[id number] 07/11/22 at 0813am Unchanged albuterol (Albuterol (Eqv-ProAir [...] Every day 07/11/22 at 1117am Pharmacy Information [facility] #[id number]: [address], [place] [id number] [phone] Please take this list to your next [...] FOR SIGNS OF INFECTION: call the office ([phone]) if experencing any of the following: (Usually [...] on your follow up instructions. Form: 338A (47679) R: 09/16 Additional Information VACCINATE! IT SAVES LIVES! Members of the community who have not yet received the COVID-19 vaccine and would like to receive it can visit one of [facility] vaccine clinics. There are many vaccine clinic locations within the [facility]. For locations and available times, please visit [email or web address] It is important to note that some COVID mobile vaccine clinics are held outdoors and may be canceled in rainy or stormy conditions. To learn more about pediatric vaccinations (ages 5-11), we invite you to visit the [facility] webpage. [email or web address]/[email or web address]-[email or web address]-Xrv [email or web address].htmlTo learn more about the COVID-19 vaccine, we invite you to visit the CDC website for a list of frequently asked questions. https://www.cdc.gov/coronavirus/2019-ncov/vaccines/faq.html [facility] Patient Portal Access Instructions: Stay connected with your healthcare team and access your personal medical information anytime with the [facility] Patient Portal.If you would like a full copy of your medical records, please contact the [facility] Medical Records Department, Saturday through Saturday between 8a.m. and 4:30p.m. Please follow the directions below to access the portal: 1.Access the email account you provided upon registration to the [facility].2.Look for an invitation email from [facility].3.Open the email and access the invitation link: Accept Invitation to [facility]4.Fill in the required benson to create your account. Sign into [email or web address] with your username and password that you [...] you will allow to register on the [facility] Patient Portal for access to your information. You can also access the [facility] Patient Portal on the [employer]. Simply click on Health Records under [employer] and then click on the [employer] logo. HOW TO SAFELY DISPOSE OF PRESCRIPTION [...] Call your local pharmacy or go to http://bit.ly/0U0Dp8z to find one close to you.3.Make use of household items: Use cat litter or old coffee grounds to dispose medications if other options arenot available. Mix your drugs with these household products, seal them in an airtight container andthrow it into the garbage. Call [facility]: [phone] to be sure your drugs can be [...] a CHART COPY. Signatures Patient Education Materials [address] [place] [address] Post-op Instruction 12/2016 (80996) Medication Leaflets My discharge plan and instructions have been reviewed and explained to me and IJOSEFINA CHRISTOPHER S understand my current condition and have read and understand these discharge instructions. I have received a written copy of the plan/instructions. If I have questions, I am aware that I should contact my doctor. Patient/Pattern Room Attendant Signature: Date/Time: Relationship to Patient: Witness Name/Signature: Date/Time: [facility] Yadielkaila [id number] Note Date of Service 07/11/2022 Chief Complaint [...] by RAINE GARCIA on 07/11/2022 12:41 PM [facility]03-01-2023 Hospital Discharge instructions Patient Education 07/11/2022 06:33:10 5 - [facility] Post-op Instruction 12/2016 (15109) [facility] Post-operative Instructions PLEASE FOLLOW [facility] POST-OP INSTRUCTIONS GIVEN WATCH FOR SIGNS OF INFECTION: call the office ([phone]) if experencing any of the following: (Usually [...] on your follow up instructions. Form: 338A (63907) R: 09/16 Follow Up Care 06/19/2022 12:37:03 With:CESIA Mendez [facility] on site Address: When:07/16/2022 11:00:00 Comments:Physical Therapy Initial Eval on July 16, 2022 at 11am. With:FELIPE LAU Address: [facility] [address] [place] [phone] Business (1) When:07/23/2022 14:45:00 [facility] 03-01-2023 Note Date of Service July [...] would like his medications E scribed to [facility] edulio in [facility]. He will follow-up per postop instructions. He [...] FELIPE LAU PA-C on 07/11/2022 06:31 AM [facility]02-28-2023 Note Date of Service 07/10/2022 Reason for Consultation Medical management Referring Physician Dr. Gricelda Oliver History of Present Illness Patient is a 62-year-old male, who follows with Dr. Opal Medina with a past medical history significant for COPD, hypertension, obesity and tobacco use, presents to [facility] for an elective left total knee [...] or dysuria. Introduced self and role of LAP RUNNER in his post- operative course. Patient aware [...] by RAINE GARCIA on 07/10/2022 11:32 AM [facility]02-28-2023 Note ORIGINAL EXAMINATION: TWO XRAY VIEWS [...] 07/10/2022 9:17:56 AM Ordering Provider: GRICELDA OLIVER [facility]02-28-2023 Note ORIGINAL EXAMINATION: TWO XRAY VIEWS [...] Date: 07/10/2022 9:17:56 AM Ordering Provider: GRICELDA [facility]02-28-2023 Anesthesiology Consult note Patient: ILDEFONSO ROCHA Age: [...] Abscess of left leg / SNOMED CT 487829352 / Confirmed Cellulitis of leg / SNOMED CT 9834201642 / Confirmed COPD (chronic obstructive pulmonary disease) / SNOMED CT 50963983 / Confirmed Cancer of skin of face / SNOMED CT 9072269079 / Confirmed Obesity / SNOMED CT 5303193462 / Confirmed, Active Problems (7) Abscess of left leg Cancer of skin of face Cellulitis of leg COPD (chronic obstructive pulmonary disease) HTN (hypertension) Obesity Tobacco use Histories Past Medical History: Active COPD (chronic obstructive pulmonary disease) (49673800) Obesity (9337096859) Cancer of skin of face (4398973115) Family History: Heart disease Grandparent Stroke Grandparent Cancer Mother Procedure history: Abscess (513184501) on 07/17/2021 at 61 Years. Comments: 07/21/2021 13:37 EST - Meeta Morris LPN I&D SCROTAL ABSCESS (OFFICE) Excision of melanoma (597616140). History of hernia repair (9217924216). Comments: 06/24/2021 19:39 EST - SANA Miranda Ueyn occured as Social History Social & Psychosocial [...] Resp Rate 15 br/min (JUL 10 05:46) SYR380 mmHg (JUL 10 05:46) DBP76 mmHg (JUL 10 05:46) Measurements from flowsheet : Measurements 07/10/2022 5:46 EST Height 172.7 cm Height in inches 68 inch(es) Admission Weight 126.7 kg Weight Lbs 278.7 lb [place] Body Weight 68.38 kg Admission Body Mass [...] Weight 126.7 kg Weight Lbs 278.7 lb [place] Body Weight 68.38 kg Admission Body Mass [...] ethnicity Skin Integrity Intact Mucous Membrane Color Gillham IV Present Present Hand Right 07/10/2022 20 [...] no symptoms Safety Brochure Information Reviewed Yes [facility] Video Viewed No Teaching Evaluation Verbalizes/Nonverbally indicates understanding Admission Note-Nursing Same Day Patient History (Modified) . Assessment and Plan [place] Society of Anesthesiologists (ASA) physical status classification: Class III. Anesthetic Preoperative Plan Anesthetic technique: Spinal. Regional: Spinal. Postoperative pain management: adductor canal block. Risks discussed: nausea, vomiting, headache, hypotension, allergic reaction, serious complications. Informed consent: signed by patient. Digitally Signed by NICOLASA BEE on 07/10/2022 06:44 AM [facility]12-30-2022 History of Present illness Narrative * [...] today. I have explained the risk and tomasz efits of an injection including the possibility [...] for typographical or grammatical errors. * . [facility] Work Phone: 1(365) 135-157011-18-2022 History of Present illness Narrative* Patient is [...] start walking. [facility] Work Phone: 1(623) 171-784706-11-2022 History of Present illness Narrative* Patient is [...] today. I have explained the risk and tomasz efits of an injection including the possibility [...] for typographical or grammatical errors. * . TV[facility]Dxgdxiezfobi-Jevuvb [facility] Work Phone: 1(516) 303-535906-08-2022 History of Present illness Narrative* Patient is [...] today. I have explained the risk and tomasz efits of an injection including the possibility [...] for typographical or grammatical errors. * . DF[facility]Vbwkpcrwtxiz-Bnwuun [facility] Work Phone: 1(111) 501-342202-15-2022 Hospital Discharge instructions Patient Education 06/27/2021 12:15:21 [...] Follow these instructions at home: Medicines Take wava-rgs-ysyktmg and prescription medicines only as told by [...] soap and water arenot available, use hand parcel carrier. Check your abscess every day for signs [...] 02/06/2006 Document Revised: 08/20/2019 Document Reviewed: 06/12/2018 [employer] Patient Education 2020 [employer]. 06/27/2021 12:15:19 Incision and Drainage Incision and [...] including vitamins, herbs, eye drops, creams, and yioz-yxj-cpfzigh medicines. Any problems you or family members [...] provider tells you to take them. Taking ivec-der-guvidgj medicines, vitamins, herbs, and supplements. Tests You [...] 10/23/2001 Document Revised: 03/30/2019 Document Reviewed: 03/30/2019 [employer] Patient Education 2020 [employer] 06/27/2021 12:15:16 Cellulitis Cellulitis Cellulitis is [...] per day to relieve pain. Only take czjg-uss-cfazdte or prescription medicines for pain, discomfort, or [...] 02/06/2006 Document Revised: 10/28/2012 Document Reviewed: 07/14/2012 [facility] Patient Information 2015 [employer]. This information is not intended to replace advicegiven to you by your health care provider. Make sure you discuss any questions you have with your health care provider. Follow Up Care 06/24/2021 13:57:22 With:MARTHA SCOTT MD, Surgery, Surgery Address: [address] [place] [phone] When:07/03/2021 15:00:00 Comments:Follow-up as scheduled With:Martinez Oh Address: [address] [place], [place] [phone] When:06/30/2021 11:00:00 Comments:Bring the CPAP or the chip with you. With:OPAL MEDINA MD Address: [address] [place] [phone] When:07/04/2021 11:00:00 Comments:This is your post-hospital follow-up appointment. This was their first available appointment. [facility] Andrea 02-12-2022 Evaluation + Plan noteExtracted from: Title:History and Physical Author:MARLEEN AMES AUTOMOTIVE TIRE TESTING SUPERVISOR-BIOMETRIC TECHNICIAN Date:06/24/21 1. Cellulitis of left thigh [...] induration that is very tender to touch. [facility] does not have surgical coverage over the weekend so I have requested that the ED physician obtain CT of the left thigh to evaluate need for surgical intervention. If the patient does indeed have abscess that will require I&D then he will need transferred to [facility] for surgical consultation, if not he will be admitted at [facility]. Will ask staff to martha area of [...] PM Scheduled Provider:MARTHA SCOTT MD Location:Gen Surg [place] Appointment Type: OV Follow Up [facility] Andrea 12-04-2021 History of Present illness Narrative* Patient [...] for typographical or grammatical errors. * . KB[facility]Ypmrniljizel[facility]Tezbhv [facility] Work Phone: 1(115) 915-319506-04-2021 History of Present illness Narrative* Patient here [...] no x-rays needed. All questions were answered. YZ-Dwhchbbkcarq-Pdzbdu [facility] Work Phone: 1(151) 774-910806-03-2021 History of Present illness Narrative* Patient here [...] no x-rays needed. All questions were answered. IO-Styflblitinf-Pbwvba Work Phone: Discharge summary Author Augusto Davis [facility] Note Date/Time December 09, 2024 12:5 4pm [facility] Medical Records Department [address] [place] [address] Emergency Department Summary 12/09/24 MR#: [id number] Acct: [id number] Name: ILDEFONSO ROCHA Rep # :[id number] : 1960 64 From: Augusto Davis MD [...] for antibiotics to help shrink the cyst. 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 Reading Location: [facility] Discharge Plan Triage Chief Complaint: Wound ED [...] worsening symptoms. Antibiotics as directed. Print Language: Ugandan Disposition Disposition: Home, Self Care What to do if you have Problems For any increased pain, shortness of breath, bleeding, nausea or vomiting, chestpain, or any unexpected problems, contact your Primary Care Provider. Call [facility] ([phone]) or report to the closest Emergency Room. Call 911 if necessary. 12/09/24 1254 <Electronically signed by Augusto Davis MD> Cosigner Signature (if applicable): CC: Dr. Pamela Hernandez MD ~ Signed [facility] Work Phone: Evaluation + Plan note Future Appointments Appointment Date:06/22/2022 10:30:00 AM Scheduled Provider: Location:[facility] Appointment Type:CT Knee w/o Contrast Left Future Scheduled Tests Radiology* CT Knee w/o Contrast Left 06/22/22 [facility] Evaluation + Plan note Future Appointments [facility] Evaluation + Plan note Future Appointments Appointment Date:08/24/2022 09:30:00 AM Scheduled Provider: Location:[facility] Appointment Type:CT Knee w/o Contrast Right Future Scheduled Tests Radiology* CT Knee w/o Contrast Right 08/24/22 [facility] Evaluation note* Diagnosis Depression screen- Primary Screening for depression Acute deep vein thrombosis (DVT) of femoral vein of left lower extremity (CMS/HCC) Current moderate episode of major depressive disorder without prior episode (CMS/HCC) Arthritis of both knees documented in this encounter [facility] Work Phone: Evaluation note* Diagnosis Chronic [...] knees documented in this encounter [facility] Work Phone: Evaluation note* Diagnosis Acute [...] (CMS/HCC) documented in this encounter [facility] Work Phone: Evaluation note* Diagnosis Vasovagal syncope- Primary Syncope and collapse documented in this encounter [facility] Work Phone: Evaluation note* Diagnosis Vasovagal syncope Syncope and collapse documented in this encounter [facility] Work Phone: Evaluation note* Diagnosis Vasovagal syncope Syncope and collapse documented in this encounter [facility] Work Phone: Evaluation note* Diagnosis Vasovagal syncope Syncope and collapse Syncope and collapse documented in this encounter [facility] Work Phone: Evaluation note* Diagnosis Acute [...] disorder documented in this encounter [facility] Work Phone: Evaluation note* Diagnosis Vasovagal [...] disorder documented in this encounter [facility] Work Phone: Evaluation note* Diagnosis Acute deep vein thrombosis (DVT) of other specified vein of left lower extremity (CMS/HCC)- Primary Arthritis of both knees Primary hypertension Unspecified essential hypertension Acute deep vein thrombosis (DVT) of femoral vein of left lower extremity (CMS/HCC) documented in this encounter [facility] Work Phone: Evaluation note* Diagnosis Onset [...] Ju ly 2024 11:00am [facility] Work Phone: History of Present illness [...] knee cortisone injections for an underlying osteoarthritis. CR[facility]Ujfaarxcsuyk[facility]Riab[facility] Work Phone: History of Present illness Narrative* patient presents for follow up of sleep. * He has a history of severe sleep apnea with AHI of 56. He was placed on Auto bipap * He reports doing well with bipap and is waiting for new supplies. * Current mask [facility] * Current [employer] * RALPH chip read:usage days * usage 7 hours 27 minutes [...] him. * Current mask [facility] * Current [employer] * RALPH chip read:usage days * usage 5 hours 47 minutes [...] lowamount of centrals but will monitor this. XY-Jzpieryacq-Uehsl 03432 Work Phone: History of Present illness Narrative* [...] not corrected for typographical or grammatical errors.. 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 * Dr Gricelda Oliver for his knees and Dr Eliseo Braxton for his spine. * Both are at : * [address] [facility] [address] * [facility] [address] * [phone] * fax [phone] [facility] Work Phone: History of Present [...] these surgeons which will be done at [facility]. * Dr Gricelda Oliver for his knees and Dr Eliseo Braxton for his spine. * Both are at : * [address] [facility] [address] * [facility] [address] * [phone] * fax [phone] [facility] Work Phone: History of Present illness Narrative* Pt is here for preop clearance for a left total knee replacement. * He has had preop clearance with an EKG, CXR and blood work at [facility] but noneof it is available to myself today and I have not reviewed it. [facility] Work Phone: Hospital course Narrative No data available for this section [facility] Hospital Discharge instructions No data available for this section [facility] Hospital Discharge instructionsAdditional Instructions Follow-up with urology in the next 2 days for a wound check. Return to the emergency department with fever, increased swelling, new or worsening symptoms. Antibiotics as directed.[facility] Work Phone: Progress note No data available for this section [facility] Reason for referral (narrative)No reason for referral information [facility]St[facility] Work Phone: Summary Purpose Family History No [...] Do you have a Healthcare Power of Wind Turbine Design Engineer? No December 09, 2024 10:45am Procedure Findings Note Post Operative Note: PreOp D iagnosis: scrotal abscess Post-Procedure Diagnosis: Same Procedure: 1. Excision of an infected sebaceous cyst right igor scrotum, drainage of a right igor scrotal hematoma 2. 3. 4. 5. Surgeon: tracy Resident/Fellow/Other Compliance Paralegal: none Anesthesia: gen Estimated Blood Loss (mL): [...] Referral Specialty Diagnoses / Procedures Referred By Becky valenzuela Referred To Contact Cardiology Diagnoses Vasovagal syncope Syncope and collapse Procedures Vascular US carotid artery duplex bilateral Opal Medina MD [address] [facility], [place] [address] Referral ID Status Reason Start Date Expiration Date Visits Requested Visits Authorized [id number] Authorized Perform Procedure 08/26/2023 08/25/2024 1 1 Specialty Diagnoses / Procedures Referred By Becky valenzuela Referred To Contact Radiology Diagnoses Vasovagal syncope Procedures CT head wo IV contrast Opal Medina MD [address] [facility], [address] [address] Referral ID Status Reason Start Date Expiration Date Visits Requested Visits Authorized [id number] Authorized Perform Procedure 08/26/2023 08/25/2024 1 1 Specialty Diagnoses / Procedures Referred By Contac t Referred To Contact Cardiology Diagnoses Vasovagal syncope Procedures Transthoracic Echo Limited TX ECHO TRANSTHORC R-T 2D W/WO M-MODE REC F-UP/LMTD TX DOP ECHOCARD COLOR FLOW VELOCITY MAPPING TX DOP ECHOCARD PULSE WAVE W/SPECTRAL F-UP/LMTD STD Opal Medina MD [address] [facility], [address] [address] Referral ID Status Reason Start Date Expiration Date Visits Requested Visits Authorized [id number] Pending Review Perform Procedure 07/31/2023 07/30/2024 1 [...] 1:00am WOUND December 09, 2024 10:1 8am SCREENING,LT LEG SWELLING December 18 7:29am Additional Source Comments (unrecognized sect ion and content) No Status Records FoundNo Status Records FoundNo Status Records FoundNo Status Records FoundNo Status Records FoundNo Status Records FoundNo Status Records FoundNo Status Records FoundNo Status Records FoundNo Status Records Found INFORMATION SOURCE (unrecogn ized section and content) DATE CREATED AUTHOR 07/17/2018 [facility] DATE CREATED AUTHOR AUTHOR'S ORGANIZ ATION 07/25/2018 [facility] DATE CREATED AUTHOR AUTHOR'S ORGANIZ ATION 09/29/2018 [facility] DATE CREATED AUTHOR AUTHOR'S ORGANIZ ATION 10/19/2019 [facility] DATE CREATED AUTHOR AUTHOR'S ORGANIZ ATION 07/06/2022 [facility] DATE CREATED AUTHOR AUTHOR'S ORGANIZ ATION 07/06/2022 [facility] DATE CREATED AUTHOR AUTHOR'S ORGANIZ ATION 02/20/2023 [facility] DATE CREATED AUTHOR AUTHOR'S ORGANIZ ATION 11/03/2023 [facility] DATE CREATED AUTHOR AUTHOR'S ORGANIZ ATION 11/28/2024 [facility] DATE CREATED AUTHOR AUTHOR'S ORGANIZ ATION 12/29/2024 [facility] Care Team (unrecognized sect ion and content) Care Team Personnel Name: OPAL MEDINA MD Member Role: Primary Care Physician Address: Address: [address] [place] [address] , [place] [address]- Care Team Related Persons Name: SARAH ROCHA Name: REBEKAH ROY Care Team Personnel Name: OPAL MEDINA MD Member Role: Primary Care Physician Address: Address: [address] [place] [address] , [place] [id number] [place] [address] Care Team Related Persons Name: SARAH ROCHA Name: REBEKAH ROY Care Team Personnel Name: OPAL MEDINA MD Member Role: Primary Care Physician Address: Address: [address] [place] [address] , [place] [id number] [place] [address] Care Team Related Persons Name: SARAH ROCHA Name: REBEKAH ROY Care Teams (unrecognized sec tion and content) Stone Decorator Relationship Specialty Start Date End Date Opal Medina MD [address] [facility], [address] [address] PCP - General 02/22/18 Stone Decorator Relationship Specialty Start Date End Date Opal Medina MD [address] [facility], [address] [address] PCP - General 02/22/18 Stone Decorator Relationship Specialty Start Date End Date Opal Medina MD [address] [facility], [address] [place] [address] PCP - General 02/22/18 Stone Decorator Relationship Specialty Start Date End Date Opal Medina MD [address] [facility], [address] [address] PCP - General 02/22/18 Stone Decorator Relationship Specialty Start Date End Date Opal Medina MD [address] [facility], [address] [place] [address] PCP - General 02/22/18 Stone Decorator Relationship Specialty Start Date End Date Opal Medina MD [address] [facility], [address] [place] [address] PCP - General 02/22/18 Opal Medina MD [address] [facility], [facility] [address] [facility] [place] [address] PCP - MMO ACO PCP 08/12/23 Stone Decorator Relationship Specialty Start Date End Date Opal Medina MD [address] [facility], [address] [address] PCP - General 02/22/18 Opal Medina MD [address] [facility], [address] [address] PCP - MMO ACO PCP 08/12/23 Stone Decorator Relationship Specialty Start Date End Date Opal Medina MD [address] [facility], [address] [place] [address] PCP - General 02/22/18 Opal Medina MD [address] [facility], [address] [place] [address] PCP - MMO ACO PCP 08/12/23 Stone Decorator Relationship Specialty Start Date End Date Opal Medina MD [address] [facility], [address] [place] [address] PCP - General 02/22/18 Team Status: Inactive [...] December 09, 2024 End: December 09, 2024 Team Status: Inactive Member Role/Relationship Status Dates Dr. Pamela Hernandez MD Primary Care Provider Active Start: December 09, 2024 End: December 09, 2024 Augusto Davis MD Attending Provider Active Star t: December 09, 2024 End: December 09, 2024 Augusto Davis MD Emergency Provider Active Star t: December 09, 2024 End: December 09, 2024 Team Status: Inactive Member Role/Relationship Status Dates Dr. Pamela Hernandez MD Primary Care Provider Active Start: December 18, 2024 End: December 18, 2024 Dr. Pamela Hernandez MD Attending Provider Active Start: December 18, 2024 End: December 18, 2024 Dr. Pamela Hernandez MD Referring Provider Active Start: December 18, 2024 End: December 18, 2024 Team Status: Active Member Role/Relationship Status Dates Dr. Pamela Hernandez MD Primary Care Provider Active Start: December 18, 2024 Dr. Romulo Collier MD Attending Provider Active S tart: December 18, 2024 Reason for Visit (unrecogniz ed section and content) Specialty Diagnoses / Procedures Referred By Contac t Referred To Contact Cardiology Diagnoses Vasovagal syncope Procedures Transthoracic Echo Limited TX ECHO TRANSTHORC R-T 2D W/WO M-MODE REC F-UP/LMTD TX DOP ECHOCARD COLOR FLOW VELOCITY MAPPING TX DOP ECHOCARD PULSE WAVE W/SPECTRAL F-UP/LMTD STD Opal Medina MD [address] [facility], [address] [address] Referral ID Status Reason Start Date Expiration Date Visits Requested Visits Authorized [id number] Authorized Perform Procedure 07/31/2023 07/30/2024 1 1 Specialty Diagnoses / Procedures Referred By Contac t Referred To Contact Radiology Diagnoses Vasovagal syncope Procedures CT head wo IV contrast Opal Medina MD [address] [facility], [place] [address] Referral ID Status Reason Start Date Expiration Date Visits Requested Visits Authorized [id number] Authorized Perform Procedure 08/26/2023 08/25/2024 1 1 Specialty Diagnoses / Procedures Referred By Contac t Referred To Contact Cardiology Diagnoses Vasovagal syncope Syncope and collapse Procedures Vascular US carotid artery duplex bilateral Opal Medina MD [address] [facility], [place] [address] Referral ID Status Reason Start Date Expiration Date Visits Requested Visits Authorized [id number] Authorized Perform Procedure 08/26/2023 08/25/2024 1 1 [...] BE BASED ON THE PRIMARY CLINICAL RECORDS. [facility] [employer] [facility]. provides no warranty or guarantee of the accuracy or completeness of information in this document.
[2024-12-30] MEDS: Lactated Ringers 1,000 ML 15 ML IV (06:16)
--- NOTE | 2024-12-30 06:31 | PCM.PRE.AN2 ---
ASA Classification* ASA Classification ASA Classification: 3 Assessment & Plan Anesthesia* Anesthesia Assessment Anesthesia Assessment: Discussed sedation and/or anesthesia options, risks, benefits, and alternatives with patient/parents/legal guardian/POA. Questions invited. The patient/parents/legal guardian/POA seems to understand and agrees to proceed with anesthesia plan. Reviewed the physical assessment, medical history, allergy history and patient home medications list prior to surgery/procedure/anesthetic and documented any changes. Performed airway and anesthesia risk assessments. Anesthesia Type Anesthesia Type: General History Source History Obtained from:: Patient and Chart Anesthesia Focused Assessment* Temperature: 98.1 F Pulse Rate: 71 Blood Pressure: 115/77 Respiratory Rate: 18 Pulse Ox: 94 Oxygen Delivery Method: Room Air Airway Assessment Mouth opens: >3 cm Mallampati Score: II Teeth Condition: Dentures (Patient has full upper dentures. They will come out.), Loose (Patient's left lower molar is loose. Rest are tight.) and Missing (Patient is missing 1 tooth on the bottom.) Neck Range of motion (ROM): Limited ROM (Slight Decrease) Labs Anesthesia Preop lab: CBC WBC 8.5 K/mm3 (4.4-11.0) 12/02/24 09:50 12/02/24 RBC 4.87 M/mm3 (4.6-6.2) 12/02/24 09:50 12/02/24 Hgb 14.4 g/dL (13.0-16.5) 12/02/24 09:50 12/02/24 Hct 43.3 % (40-54) 12/02/24 09:50 12/02/24 Plt Count 268 K/mm3 (150-450) 12/02/24 09:50 12/02/24 CHEMISTRY Potassium 4.8 mmol/L (3.3-5.1) 12/02/24 09:50 12/02/24 Sodium 141 mmol/L (133-145) 12/02/24 09:50 12/02/24 BUN 12 mg/dL (4-19) 12/02/24 09:50 12/02/24 Creatinine 0.86 mg/dL (0.70-1.20) 12/02/24 09:50 12/02/24 Glucose 104 mg/dL (70-99) H 12/02/24 09:50 12/02/24 COAG Pre-Assessment Diagnosis/Proposed Procedure Planned Operative Procedure(s): Excision, Scrotal Mass Anesthesia History 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 When Was Last Pacemaker Check QUESTION #4 FULL TEXT: You/Your Family Experience fever (hyperthermia) with Anesthesia Last Oral Intake Last Oral intake: Last Oral Intake NPO since 00:00 12/30/24 06:14 Meds taken in AM with sips of No 12/30/24 06:14 water? Meds patient instructed to take am of surgery PONV PONV - bridge repair crew person: PONV - bridge repair crew person Female No 12/16/24 11:24 HX of Motion Sickness Yes 12/16/24 11:24 HX of N/V After Surgery No 12/16/24 11:24 Non-Smoker No 12/16/24 11:24 Duration of Surgery greater No 12/16/24 11:24 than 60 minutes Number of Risk Factors 1 12/16/24 11:24 PONV Score Low Risk 12/16/24 11:24 Height & Weight Height & Weight: Anesthesia: Height & Weight Height 5 ft 10 in 12/30/24 06:14 Weight: 131 kg 12/30/24 06:14 Body Mass Index (BMI) 41.4 12/30/24 06:14 Respiratory Assessment Respiratory Assessment - bridge repair crew person: Respiratory Tract Infection Hx - bridge repair crew person Hx Respiratory Tract Infection No 12/16/24 11:24 STOP Sleep Apnea STOP Sleep Apnea - bridge repair crew person: STOP Sleep Apnea - bridge repair crew person Hx Hypertension Yes 12/16/24 11:24 Hx Sleep Apnea Yes 12/16/24 11:24 CPAP No 12/16/24 11:24 BIPAP Yes 12/16/24 11:24 Do you snore loudly (louder than talking or can be heard Do you often feel tired/ fatigued/ sleepy during daytime? Has anyone observed you stop breathing during sleep? STOP Results Positive 12/16/24 11:24 QUESTION #5 FULL TEXT : Do you snore loudly (louder than talking or can be heard through closed doors)? Tobacco Use History Tobacco Use History - bridge repair crew person: Tobacco Use History - bridge repair crew person Tobacco Use Smoking Status Current every day smoker 12/16/24 11:24 Hx Tobacco Use Yes 12/16/24 11:24 Years Smoking Packs Smoked per Day Smoking Cessation Date was within the last 15 years Hx Smoking Cessation Date Hx Smoking Cessation No 12/16/24 11:24 Counseling Any additional information?: Yes Smoking Status: Current every day smoker (Patient did not smoke today.) Hematologic Medial History Hematologic Hx - bridge repair crew person: Hematologic Medical Hx - outpatient surgery rn Hx of Blood Transfusion No 12/16/24 11:24 Hx of Transfusion in last 3 No 12/16/24 11:24 Months Date of Last Transfusion (if within last 3 months) Ever experience any problems No 12/16/24 11:24 with transfusion(s)? Specify any problems Hx of Preganancy in last 3 N/A 12/16/24 11:24 Months Nurse Filling Out Transfusion JZOLLINGE 12/16/24 11:24 & Questions: Date: 12/16/24 12/16/24 11:24 Time: 11:25 12/16/24 11:24 Patient unable to answer at this time (ie. confused, unrespo /Reproduction History /Reproductive History - bridge repair crew person: /Reproductive Hx- bridge repair crew person Hx Now No 12/16/24 11:24 Gestational Age (in weeks): EDC: Hx Hx Para Hx Section SAB Active Medications Active Medications: Current Medications Generic Name Dose Route Start Last Admin Trade Name Freq PRN Reason Stop Dose Admin Cefazolin Sodium 3 gm/ Sodium 115 mls @ 200 mls/hr 12/30/24 07:30 Chloride IV 12/30/24 08:04 INTRAOP ONE Lactated Ringer's 1,000 mls @ 15 mls/hr 12/30/24 06:00 12/30/24 06:16 IV 15 mls/hr .Q48H HENRIETTA Administration PFSH Medical History Marijuana use Ambulates with cane BiPAP (biphasic positive airway pressure) dependence Emphysema, unspecified Hearing problem DVT (deep venous thrombosis) Wears dentures Wears glasses Cancer History of steroid therapy Arthritis High cholesterol Easy bruising Restless legs Back pain Smoker Sleep apnea Shortness of breath on exertion COPD (chronic obstructive pulmonary disease) Leg cramps History of pain when walking History of edema Hypertension Home Medications ?Medication ?Instructions ?Recorded ?Last Taken ?Type albuterol sulfate 90 mcg/actuation 1 puff inhalation Q6H PRN COPD 05/31/22 Unknown History aerosol inhaler cholecalciferol (vitamin D3) 100 1,000 unit PO DAILY SUPPLEMENT 05/31/22 12/29/24 History mcg (4,000 unit) capsule hydrochlorothiazide 50 mg tablet 50 mg PO DAILY BP 05/31/22 12/29/24 History multivitamin with minerals-folic 2 tab PO DAILY SUPPLEMENT 05/31/22 12/29/24 History acid 200 mcg chewable tablet (Men's Daily Gummies) cyclobenzaprine 5 mg tablet 5 mg PO TID PRN muscle spasm #30 11/30/24 Unknown Rx tabs duloxetine 30 mg capsule,delayed 30 mg PO QDAY #30 caps 11/30/24 12/29/24 Rx release (Cymbalta) sertraline 100 mg tablet (Zoloft) 100 mg PO QDAY 11/30/24 12/29/24 History atorvastatin 20 mg tablet 20 mg PO QPM 12/16/24 12/29/24 History apixaban 5 mg tablet (Eliquis) 5 mg PO 12/30/24 12/16/24 History Allergy/AdvReac Type Severity Reaction Status Date / Time No Known Allergies Allergy Verified 12/30/24 06:12 Family History Mother Lung cancer Depression Asthma Anxiety Arthritis Hypertension Hyperlipidemia Surgical History History of bilateral knee replacement Hx of colonoscopy Hx of hernia repair Social History adopted: No household members: spouse current occupational status: retired and disabled 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
[2024-12-30] MEDS: Lactated Ringers 500 ML IV (07:23)
[2024-12-30] MEDS: Cefazolin 1 GM/5 ML Vial 3 GM IV (07:28)
--- NOTE | 2024-12-30 07:30 | MASS_PTH ---
PATIENT: ILDEFONSO ROCHA LOC: [facility] – [place] U#:[id number] AGE/SX: 64/M ROOM: RE12/30/[address]: Dr. Garry Celeste MD : 1960 BED: DIS: 12/30/2024 SPEC #: [id number] RECD: 12/30/24 09:09 STATUS: CHRIS BEARDEN #: [id number] MAGDALENA: 12/30/24 07:[address]: Garry Celeste DEPT: SURGICAL PATHOLOGY RECD BY: Chase Richey ENTERED: 12/30/24 10:22 SP TYPE: Mass OTHR DR: Dr. Pamela Hernandez MD Tissues: A - Scrotum, NOS Procedures: Surgery Specimen Level IV HEADER OPERATION: Excision, mass, scrotum PRE-OP DIAGNOSIS: Scrotal mass TISSUE SUBMITTED: A- Scrotal mass MICROSCOPIC DIAGNOSIS A. Scrotum, mass, excision: - Inflamed granulation tissue with cystic degeneration and active chronic inflammation - see note. Note: The findings are suggestive of hidradenitis. No neoplasia is observed. MICROSCOPIC DESCRIPTION Slides are reviewed. GROSS DESCRIPTION A. Received in formalin labeled with the patient's name and date of . Designated as scrotal mass is a singh-pink, slightly wrinkled, irregular and rubbery portion of skin measuring 5.8 x 4.0 x 1.6 cm. The resection margin is inked black. Sectioning reveals singh-white, rubbery cut surfaces with a 2.8 x 1.6 x 0.7 cm focally hemorrhagic, edematous cystic space, suspicious for abscess cavity. Technical Aide sections of the possible abscess cavity are submitted in 3 cassettes. DC 12/30/2024PT:[id number]
[2024-12-30] MEDS: Lidocaine 1% (5 ml sdv) 5 ML Vial IV (07:42)
[2024-12-30] MEDS: fentaNYL 100 MCG/2 ML Ampul IV (07:47)
[2024-12-30] MEDS: Ketorolac 30 MG/ML Syringe IV (08:05)
--- NOTE | 2024-12-30 08:17 | DCINST_ITS ---
Discharge Instructions DC O2, CPAP, BIPAP needs Home O2 Discharge instructions: No Dressing / Incision Discharge Activity: Return to Normal Activity and May Not Drive (while taking narcotic pain medications.) Lifting Restrictions: No lifting over 10 pounds for the next 6 weeks Additional Activity Instructions:: No heavy activity wear tight scrotal support for the next several weeks Dressing / Incision Call your doctor if you observe: Fever of 101 or Higher Suture Line Care: Avoid Pulling/Pushing and Avoid Pinching/Bending Additional Dressing/Incision Instructions:: Wear tight supportive underwear for the next several weeks with scrotal support, use gauze to catch any bleeding apply pressure if there is any bleeding Follow Up Care Please Follow Up With: Garry Celeste MD When: Call [phone] for an appointment Test Results: Test results from this visit will be discussed in further detail at your follow- up appointment, if applicable. Discharge Plan Admission Primary Reason for Your Visit: Resection infected scrotal mass Attending Provider: Garry Celeste Primary Care Provider: Pamela Hernandez Instructions Print Language: Iraqi Discharge Orders/Prescriptions Prescriptions: New bacitracin 500 unit/gram ointment 1 applic topical TID Qty: 28 0RF Rx Instructions: Apply to scrotal incision 3 times a day oxycodone 5 mg tablet 5 mg PO Q6H PRN (Reason: pain) 7 Days Qty: 20 0RF cephalexin 500 mg capsule 500 mg PO TID Qty: 20 0RF Continued sertraline [Zoloft] 100 mg tablet 100 mg PO QDAY duloxetine [Cymbalta] 30 mg capsule,delayed release(DR/EC) 30 mg PO QDAY Qty: 30 1RF cyclobenzaprine 5 mg tablet 5 mg PO TID PRN (Reason: muscle spasm) Qty: 30 0RF hydrochlorothiazide 50 mg Tablet 50 mg PO DAILY multivit with min-folic acid [Men's Daily Gummies] 200 mcg Tablet,Chewable 2 tab PO DAILY cholecalciferol (vitamin D3) 100 mcg (4,000 unit) Capsule 1,000 unit PO DAILY albuterol sulfate 90 mcg/actuation Hfa Aerosol Inhaler 1 puff INHALATION Q6H PRN (Reason: COPD) atorvastatin 20 mg tablet 20 mg PO QPM Held Eliquis 5 mg tablet 5 mg PO Hold Instructions: Resume on 01/13/25. Referrals / Follow Up: Pamela Hernandez MD [Primary Care Provider] - Garry Celeste MD [Med Staff - Active Staff] - Disposition Disposition (needs filled in before D/C Order can be placed): Home, Self Care
--- NOTE | 2024-12-30 08:18 | PCM.OPRPT ---
Operative Report (Standard) Operative Information Date of Procedure: 12/30/24 Pre-Operative Diagnosis: Scrotal mass with recurrent infections Post-Operative Diagnosis: Same Surgery/Procedure Performed: Excision of scrotal mass in the subcutaneous tissue of the scrotum, and scrotoplasty vice president precision market insights: No Type of Anesthesia: General RN Documented Start/Stop Times: Operation Date: 12/30/24 07:30 Case Time Into Pre-Op 12/30/24 05:55 Anesthesia Start 12/30/24 07:30 Into Room 12/30/24 07:30 Out of Pre-Op 12/30/24 07:30 Procedure Start 12/30/24 07:42 Procedure Start Time: 07:42 Procedure Stop Time: 08:19 Select all DRAINS/GRAFTS/IMPLANTS that apply: None Estimated Blood Loss: 20 cc Specimen collected: Yes Description of specimen(s) removed: Scrotal mass Description of surgery: 64-year-old male who has a abscess pocket in the bottom of his scrotum with chronic infections he been getting infections in this over and over, he has been several times in the emergency room had to have a cut and lanced over and drained you can feel hard caseating necrotic mass in the lower part of his scrotum this appears to be like adenitis for more recurrent infections he sepsis keeps on getting infections same spot which they have a resolved so today organ to proceed with excision of the scrotal mass and also rather do a scrotoplasty to reconstruct the scrotum after excision of this mass since this fairly large about 3 cm in the lower part of the scrotum. Patient was taken back to the operating room after smooth induction of anesthesia he was placed in dorsolithotomy position the penis testicles were prepped and draped in usual sterile fashion on examination he is got like a 3 cm and caseating hard scrotal mass in the wall the scrotum and the lower part of the scrotum from chronic infections. I then made a large elliptical incision all the way around this mass about 5 cm in size I then used electrocautery and a knife to do the elliptical incision all the way around the scrotum mass and then I excised using electrocautery all the skin and elliptical shape off this off the scrotum and taken off the mass with it this was handed off as a specimen and then used electrocautery with the increased electrocautery to 40 and then had to cauterize all the bleeding from the scrotal edges to excise and to cauterize all the edges to control bleeding once all the bleeding was controlled then started with the reapproximation and the scrotoplasty by creating a flap and bringing the 2 edges back together using a running 2-0 chromic stitch and creating this flap to get bring the 2 edges back together once the 2 edges were brought together with a flap then I was able to then bring the skin edges together with a running 3-0 chromic stitches done in implicated fashion to bring the edges back together nicely I then finished out the the final layer by running the stitch back over the top of the baseball layer once this was done then the edges were back together in the scrotum we placed bacitracin dressing on it fluffs and scrotal support was placed nice closure of the scrotum and reconstructed the scrotum was accomplished patient was anesthetic was reversed and he was taken back to the PACU in stable condition to follow-up in a few weeks for checkup. Surgical Findings: Complete excision of scrotal mass and reconstruction of the scrotum scrotoplasty Complications Complications: No Admit VTE Documentation VTE Present on Admission: No VTE Mechan Device Prophylaxis: SCD's VTE Pharm Prophylaxis ordered?: No
--- NOTE | 2024-12-30 08:28 | PCM.POST.ANE ---
Anesthesia: Postop Eval I Current Vital Signs Temperature: 97.5 F Pulse Rate: 77 Blood Pressure: 118/85 Respiratory Rate: 16 Pulse Ox: 99 Oxygen Delivery Method: Airvo Oxygen Flow Rate (L/min): 6 Assessment Airway patent: Yes Spontaneous unlabored respirations: Yes Mental status: Awake and Calm nausea: No Vomiting: No Anesthesia Complication: No Fluid Hydration Crystalloid volume administer (ml): 500 Total IV fluid infused: 500 Progress Note Anesthesia document: Postop Eval 1 completed: Yes
--- NOTE | 2024-12-30 10:18 | POSTOPAN2_ITS ---
Anesthesia Postop Eval I Sum Postop Eval Completion status Anesthesia document: Postop Eval 1 completed: Yes Anesthesia Postop Eval I Summary Anesthesia Postop Eval I Summary: Anesthesia Postop Eval I: Assessment Summary Airway patent Yes 12/30/24 08:29 [email or web address] Spontaneous unlabored Yes 12/30/24 08:29 [email or web address] respirations Mental status Awake,Calm 12/30/24 08:29 [email or web address] nausea No 12/30/24 08:29 [email or web address] Vomiting No 12/30/24 08:29 [email or web address] Anesthesia Postop Eval I: Fluid Summary Crystalloid volume administer 500 12/30/24 08:29 [email or web address] (ml) Colloids volume administered ( ml) Blood Product volume administered (ml) Total IV fluid infused 500 12/30/24 08:29 [email or web address] Anesthesia Postop Eval I: Summary Notes Anesthesia Complication No 12/30/24 08:29 [email or web address] Anesthesia Complication Comment: Post-operative progress note Anesthesia: Postop Eval II Evaluation Mental status: Awake Pain Level: 1 nausea: No Vomiting: No
--- NOTE | 2024-12-30 10:18 | PCM.POSTANE2 ---
Anesthesia Postop Eval I Sum Postop Eval Completion status Anesthesia document: Postop Eval 1 completed: Yes Anesthesia Postop Eval I Summary Anesthesia Postop Eval I Summary: Anesthesia Postop Eval I: Assessment Summary Airway patent Yes 12/30/24 08:29 HOME [email or web address] Spontaneous unlabored Yes 12/30/24 08:29 HOME [email or web address] respirations Mental status Awake,Calm 12/30/24 08:29 HOME [email or web address] nausea No 12/30/24 08:29 HOME [email or web address] Vomiting No 12/30/24 08:29 HOME [email or web address] Anesthesia Postop Eval I: Fluid Summary Crystalloid volume administer 500 12/30/24 08:29 HOME [email or web address] (ml) Colloids volume administered ( ml) Blood Product volume administered (ml) Total IV fluid infused 500 12/30/24 08:29 HOME [email or web address] Anesthesia Postop Eval I: Summary Notes Anesthesia Complication No 12/30/24 08:29 HOME [email or web address] Anesthesia Complication Comment: Post-operative progress note Anesthesia: Postop Eval II Evaluation Mental status: Awake Pain Level: 1 nausea: No Vomiting: No
== END 2024-12-30 09:30 | disposition home or self-care (01) ==
LOC: SDC 05:32 → AC 05:33
PROVIDERS: PCP Internal Medicine; Referring Provider Urology; Visit Provider Urology
PROC: (CPT 54600; principal; 2024-12-30 07:15)
DX: N49.2 Inflammatory disorders of scrotum (principal); J44.9 Chronic obstructive pulmonary disease, unspecified; N50.89 Other specified disorders of the male genital organs; I10 Essential (primary) hypertension; F41.9 Anxiety disorder, unspecified; F32.A Depression, unspecified; J45.20 Mild intermittent asthma, uncomplicated; E78.00 Pure hypercholesterolemia, unspecified; G47.30 Sleep apnea, unspecified; F17.210 Nicotine dependence, cigarettes, uncomplicated; Z79.01 Long term (current) use of anticoagulants; Z86.718 Personal history of other venous thrombosis and embolism; Z79.899 Other long term (current) drug therapy
CPT/HCPCS: 55150; 00920; 88305; J2405

== ENCOUNTER → 2025-01-25 | Outpatient (CLI) | payer MEDICARE, SELFPAY ==
[2025-01-25 15:27] LABS: Hematocrit 44.0 % (40-54); Hemoglobin 15.0 g/dL (13.0-16.5); Immature Granulocytes Count 0.050 X10^3/uL (0.0-0.0); Mean Corp Hgb Conc 34.1 g/dL (32-36); Mean Corpuscular Volume 86.1 fL (80-94); Mean Platelet Vol. 9.8 fl (6.2-12.0); NRBC Flagged by Analyzer 0 % (0-5); Platelet Count 299 K/mm3 (150-450); RBC Distribution Width CV 15.2 % (11.6-14.6); RBC Distribution Width SD 47.7 fl (35.1-43.9); Red Blood Count 5.11 M/mm3 (4.6-6.2); White Blood Count 11.6 K/mm3 (4.4-11.0)
[2025-01-25 16:38] LABS: AST(SGOT) 20 U/L (<=37); Alanine Aminotransfer ALT/SGPT 18 U/L (<=46); Albumin, Serum 4.2 g/dL (3.4-4.8); Alkaline Phosphatase 64 U/L (40-129); Anion Gap 12 (5-15); BUN 13 mg/dL (4-19); BUN/Creat Ratio 15.1 RATIO (10-20); Calcium,Total 9.8 mg/dL (7.6-11.0); Carbon Dioxide 24.1 mmol/L (21.0-32.0); Chloride 102 mmol/L (98-108); Globulin 3.4 g/dL (2.2-4.2); Glucose 112 mg/dL (70-99); PSA,Total- Diagnostic 2.23 ng/mL (0.00-4.00); Potassium 3.5 mmol/L (3.3-5.1)
== END | disposition home or self-care (01) ==
LOC: BIMLAB 12:55
PROVIDERS: PCP Internal Medicine; Referring Provider Internal Medicine; Visit Provider Internal Medicine
DX: K62.5 Hemorrhage of anus and rectum (principal); I10 Essential (primary) hypertension; N40.0 Benign prostatic hyperplasia without lower urinary tract symptoms
CPT/HCPCS: 36415; 80053; 84153; 85025